=== PATIENT | male | born 1975 | race Caucasian/White ===

== ENCOUNTER 2016-07-19 22:01 | Emergency (ER) | payer SELFPAY ==
[~2016-07-19] VITALS: Ht 172.7 cm; Wt 75.0 kg
[~2016-07-19 22:01] MED LIST: CYAN100015 BUCCAL; D-10TAB; FOLI5CAP PO; MAG-500T; MAGN400T2 PO; MULTTAB67 PO; OMEP40CA2 PO; POTA-163 PO; POTA20TA5 PO; [UNRECOGNIZED DRUG - CODE]
[2016-07-19 22:19] VITALS: BP 117/75; PULSE 88; RESP 16; TEMP 98.6; O2SAT 96
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
== END 2016-07-20 01:55 | disposition home or self-care (01) ==
LOC: NEPA 22:01
DX: F10.220 Alcohol dependence with intoxication, uncomplicated (principal); J45.909 Unspecified asthma, uncomplicated; E78.00 Pure hypercholesterolemia, unspecified; I10 Essential (primary) hypertension; F17.210 Nicotine dependence, cigarettes, uncomplicated; Y90.9 Presence of alcohol in blood, level not specified
CPT/HCPCS: 99284

== ENCOUNTER 2016-08-05 02:21 | Emergency (ER) | payer OTHER ==
[2016-08-05] MEDS ORDERED: METF500T PO (02:26)
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
[2016-08-05 02:27] VITALS: BP 125/82; PULSE 77; RESP 16; TEMP 97.4; O2SAT 95
[2016-08-05] MEDS ORDERED: IBUPROFEN 800 MG TAB PO ONE (02:30)
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
== END 2016-08-05 03:57 | disposition home or self-care (01) ==
LOC: NEPE 02:21
DX: S20.219A Contusion of unspecified front wall of thorax, initial encounter (principal); V49.40XA Driver injured in collision with unspecified motor vehicles in traffic accident, initial encounter
CPT/HCPCS: 71010; 99284

== ENCOUNTER 2016-09-14 22:58 | Inpatient (IN) | payer SELFPAY ==
[~2016-09-14] VITALS: Ht 172.7 cm; Wt 86.6 kg
[~2016-09-14 22:58] MED LIST changes: +METF500T PO
[2016-09-14 22:59] VITALS: BP 135/73; PULSE 82; RESP 16; TEMP 98.7; O2SAT 89
[2016-09-14] MEDS ORDERED: SODIUM CHLOR 0.9% 1000 ML INJ 1,000 ML IV SCH (23:50)
[2016-09-14] MEDS ORDERED: GLIM4TAB PO (23:53)
[2016-09-14] MEDS ORDERED: PAXI40TA PO (23:53)
[2016-09-14] MEDS ORDERED: MIRT30TA PO (23:53)
[2016-09-14] MEDS ORDERED: CHLO10CA2 PO (23:53)
[2016-09-14] MEDS ORDERED: TRAZ100T4 PO (23:53)
[2016-09-14] MEDS ORDERED: GLIM2TAB PO (23:53)
--- NOTE | 2016-09-14 23:53 | PD ---
HPI Chief Complaint: Abdominal Pain Time Seen by Provider: 23:49 Travel History International Travel<30 days: No Contact w/Intl Traveler<30days: No History of Present Illness HPI The patient is 41 years old. He has a history of alcoholic pancreatitis. He reports relapsing 3 days prior and drinking vodka for one night. For the past day and a half or so has had severe constant epigastric abdominal pain which radiates to the right and left sides and around to the back. He's vomited twice in the last 24 hours. One episode was bloody. 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 Tylenol and ibuprofen were not helpful. He reports drinking water was somewhat helpful. Primary care provider is Dr. Wakefield. [facility], [facility] Past Medical History Asthma: Yes Heart Rhythm Problems: No Cancer: No High Cholesterol: Yes Chest Pain: Yes Congestive Heart Failure: No COPD: No Diabetes: Yes Diminished Hearing: No Endocrine: No Gastrointestinal Disorders: Yes (pancreatitis) GERD: Yes Genitourinary: No Hypertension: Yes Immune Disorder: No Implanted Vascular Access Dvce: No Musculoskeletal: Yes (RIGHT LEG/TOES BROKEN) Neurologic: No Psychiatric: No Reproductive: No Respiratory: Yes (ASTHMA ) Immunizations Current: Yes Pancreatitis: Yes Thyroid Disease: No Past Surgical History Oral Surgery: Yes (TONSILLECTOMY) Other Surgery: Yes Social History Alcohol Use: Yes (10 VODKA DRINKS AND BEER DAILY) Tobacco Use: Yes (1/2 PPD) Substance Use: Yes Allergies-Medications (Allergen,Severity, Reaction): Coded Allergies: No Known Allergies (Unverified , 09/14/16) Reported Meds & Prescriptions Reported Meds & Active Scripts Active Magnesium Oxide 400 Mg Tab 400 Mg PO BID 7 Days Potassium Chloride ER (Potassium Chloride) 20 Meq Tab 20 Meq PO BID 7 Days Reported Mirtazapine 30 Mg Tab 30 Mg PO HS Chlordiazepoxide (Chlordiazepoxide HCl) 10 Mg Cap 10 Mg PO QID PRN Paxil (Paroxetine HCl) 40 Mg Tab 40 Mg PO DAILY Trazodone (Trazodone HCl) 100 Mg Tab 100 Mg PO HS Glimepiride 4 Mg Tab 4 Mg PO HS Take with breakfast or first main meal Glimepiride 2 Mg Tab 2 Mg PO DAILY Take with breakfast or first main meal Metformin (Metformin HCl) 500 Mg Tab 500 Mg PO BIDPC With meals Potassium Chloride Microencaps 20 Meq Tab 20 Meq PO DAILY Omeprazole 40 Mg Cap 40 Mg PO DAILY Multiple Vitamin 1 Tab 1 Tab PO DAILY Mag-G (Magnesium Gluconate) 500 Mg Tab Folic Acid 5 Mg Cap 1 Mg PO DAILY B-12 (Cyanocobalamin) 1,000 Mcg Lozg 1,000 Mcg BUCCAL DAILY Coenzyme Q10 (Bulk) (Coenzyme Q10) 1 Powd D-1000 (Cholecalciferol) 1,000 Unit Tab Review of Systems Except as stated in HPI: all other systems reviewed are Neg General / Constitutional: No: Fever, Chills Gastrointestinal: Positive: Abdominal Pain Physical Exam Narrative GENERAL: 41-year-old male well-nourished well-developed SKIN: Warm and dry. HEAD: Atraumatic. Normocephalic. EYES: Pupils equal and round. No scleral icterus. No injection or drainage. ENT: No nasal bleeding or discharge. Mucous membranes pink and moist. NECK: Trachea midline. No JVD. CARDIOVASCULAR: Regular rate and rhythm. No murmur appreciated. RESPIRATORY: No accessory muscle use. Clear to auscultation. Breath sounds equal bilaterally. GASTROINTESTINAL: Soft. Minimal tenderness to palpation in the epigastrium. Negative Lindsey's sign. MUSCULOSKELETAL: No obvious deformities. No clubbing. No cyanosis. No edema. NEUROLOGICAL: Awake and alert. No obvious cranial nerve deficits. Motor grossly within normal limits. Normal speech. PSYCHIATRIC: Appropriate mood and affect; insight and judgment normal. Data Data Last Documented VS Vital Signs Date Time Temp Pulse Resp B/P Pulse Ox O2 Delivery O2 Flow Rate FiO2 09/15/16 01:14 73 16 105/68 97 Room Air 09/15/16 00:20 2 09/14/16 22:59 98.7 Vital signs reviewed Orders Complete Blood Count With Diff (09/14/16 23:50) Comprehensive Metabolic Panel (09/14/16 23:50) Lipase (09/14/16 23:50) Iv Access Insert/Monitor (09/14/16 23:50) Ecg Monitoring (09/14/16 23:50) Oximetry (09/14/16 23:50) Hydromorphone Pf Inj (Dilaudid Pf Inj) (09/15/16 00:00) Ondansetron Inj (Zofran Inj) (09/15/16 00:00) Sodium Chlor 0.9% 1000 Ml Inj (Ns 1000 M (09/14/16 23:50) Sodium Chloride 0.9% Flush (Ns Flush) (09/15/16 00:00) Potassium Chloride (Kcl) (09/15/16 02:15) Ns + Kcl + Magnesium Inj (09/15/16 02:30) Labs Laboratory Tests Test 09/15/16 00:09 White Blood Count 14.1 TH/MM3 Red Blood Count 4.44 MIL/MM3 Hemoglobin 13.4 GM/DL Hematocrit 40.3 % Mean Corpuscular Volume 90.8 FL Mean Corpuscular Hemoglobin 30.1 PG Mean Corpuscular Hemoglobin 33.2 % Concent Red Cell Distribution Width 14.2 % Platelet Count 276 TH/MM3 Mean Platelet Volume 9.1 FL Neutrophils (%) (Auto) 66.6 % Lymphocytes (%) (Auto) 20.0 % Monocytes (%) (Auto) 9.1 % Eosinophils (%) (Auto) 3.6 % Basophils (%) (Auto) 0.7 % Neutrophils # (Auto) 9.4 TH/MM3 Lymphocytes # (Auto) 2.8 TH/MM3 Monocytes # (Auto) 1.3 TH/MM3 Eosinophils # (Auto) 0.5 TH/MM3 Basophils # (Auto) 0.1 TH/MM3 CBC Comment DIFF FINAL Differential Comment Sodium Level 137 MEQ/L Potassium Level 2.3 MEQ/L Chloride Level 86 MEQ/L Carbon Dioxide Level 40.6 MEQ/L Anion Gap 10 MEQ/L Blood Urea Nitrogen 22 MG/DL Creatinine 0.81 MG/DL Estimat Glomerular Filtration 105 ML/MIN Rate Random Glucose 129 MG/DL Calcium Level 8.7 MG/DL Total Bilirubin 1.5 MG/DL Aspartate Amino Transf 101 U/L (AST/SGOT) Alanine Aminotransferase 143 U/L (ALT/SGPT) Alkaline Phosphatase 367 U/L Total Protein 7.6 GM/DL Albumin 3.6 GM/DL Lipase 2967 U/L MDM Medical Decision Making Medical Screen Exam Complete: Yes Emergency Medical Condition: Yes Medical Record Reviewed: Yes Differential Diagnosis Gastritis, pancreatitis, appendicitis, acute cholecystitis, ascending cholangitis, AAA, perforated viscous, mesenteric ischemia, hepatitis, cystitis, hydronephrosis/hydroureter/nephroureter calculus, mesenteric adenitis, biliary colic Narrative Course CBC & BMP Diagram 09/15/16 00:09 Total bilirubin 1.5 AST 101 ALT 143 Alkaline phosphatase 367 Lipase 2967 The abdomen is soft. The patient has no tachycardia or fever. The leukocytosis is considered most probably secondary to vomiting and/or pain and less likely an infectious process involving the pancreas or hepatobiliary system otherwise. We will admit the patient for pain control, IV fluids and antiemetics. Patient received 60 mEq of potassium by mouth. Case d/w Dr Escalante for [facility]. IV KCL added add'l 20meq. Diagnosis Primary Impression: Acute alcoholic pancreatitis Qualified Code: K85.20 - Alcohol-induced acute pancreatitis, unspecified complication status Admitting Information Admitting Physician Requests: Admit Fernando Tian MD Sep 14, 2016 23:53
[2016-09-15] VITALS (14 sets, daily range): BP systolic 87–115; BP diastolic 56–73; PULSE 58–79; RESP 14–22; TEMP 97.5–98.1; O2SAT 87–97
[2016-09-15] MEDS ORDERED: ONDANSETRON HCL 4 MG/2 ML VIAL IVP ONE
[2016-09-15] MEDS ORDERED: HYDROmorphone HCL PF 2 MG/ML VIAL IVS ONE
[2016-09-15 00:35] LABS: AUTOMATED NEUTROPHIL # 9.4 TH/MM3 (1.8-7.7); BASOPHIL # 0.1 TH/MM3 (0-0.2); BASOPHIL % 0.7 % (0.0-2.0); EOSINOPHIL # 0.5 TH/MM3 (0-0.4); EOSINOPHIL % 3.6 % (0.0-4.0); HEMATOCRIT 40.3 % (39.0-51.0); LYMPHOCYTE # 2.8 TH/MM3 (1.0-4.8); MEAN CELL VOLUME 90.8 FL (80.0-100.0); MEAN CORPUSCULAR HEMOGLOBIN 30.1 PG (27.0-34.0); MEAN CORPUSCULAR HGB CONC 33.2 % (32.0-36.0); MONO % 9.1 % (0.0-8.0); NEUT % 66.6 % (16.0-70.0); PLATELET COUNT 276 TH/MM3 (150-450); RED BLOOD COUNT 4.44 MIL/MM3 (4.50-5.90); RED CELL DISTRIBUTION WIDTH 14.2 % (11.6-17.2); WHITE BLOOD COUNT 14.1 TH/MM3 (4.0-11.0)
[2016-09-15 00:43] LABS: HEMO FLAGS DIFF FINAL
[2016-09-15 01:13] LABS: ALKALINE PHOSPHATASE 367 U/L (45-117); ALT (GPT) 143 U/L (12-78); ANION GAP 10 MEQ/L (5-15); AST (GOT) 101 U/L (15-37); BICARBONATE 40.6 MEQ/L (21.0-32.0); BLOOD UREA NITROGEN 22 MG/DL (7-18); CHLORIDE 86 MEQ/L (98-107); GLOMERULAR FILTRATION RATE 105 ML/MIN (>89); SODIUM (NA) 137 MEQ/L (136-145); TOTAL BILIRUBIN ADULT 1.5 MG/DL (0.2-1.0)
[2016-09-15 01:14] LABS: POTASSIUM 2.3 MEQ/L (3.5-5.1)
[2016-09-15] MEDS ORDERED: POTASSIUM CHLORIDE 20 MEQ CONTROLLED RELEASE TAB PO ONE ×2 (02:15→13:15)
[2016-09-15] MEDS ORDERED: POTASSIUM CHLORIDE INJ 20 MEQ, MAGNESIUM SULFATE INJ 2 GM in SODIUM CHLOR 0.9% 1000 ML ... IV ONE (02:30)
[2016-09-15] MEDS ORDERED: HYDROmorphone HCL PF 1 MG/ML VIAL IV PUSH ONE (03:00)
[2016-09-15] MEDS ORDERED: GLUCAGON 1 MG/ML VIAL OTHER PRN (03:15)
[2016-09-15] MEDS ORDERED: traZODone HCL 100 MG TAB PO ONE (03:15)
[2016-09-15] MEDS ORDERED: DEXTROSE 50% IN WATER 50 ML VIAL(D50) IV PUSH PRN (03:15)
[2016-09-15] MEDS ORDERED: MAGNESIUM SULFATE 1 GM PREMIX 100 ML IV ONE ×2 (04:00→18:00)
[2016-09-15] MEDS: PANTOPRAZOLE SODIUM 40 MG VIAL IV PUSH SCH (04:51)
[2016-09-15] MEDS: ONDANSETRON HCL 4 MG/2 ML VIAL IV PUSH PRN ×2 (06:11→13:25)
[2016-09-15] MEDS: MORPHINE SULFATE 4 MG/ML INJ IV PUSH PRN ×2 (06:12→13:26)
[2016-09-15] MEDS: INSULIN ASPART SUPPLEMENTAL SCALE SQ SCH ×4 (07:00→21:00)
[2016-09-15] MEDS: MULTIVITAMIN TAB PO SCH (08:23)
[2016-09-15] MEDS: SODIUM CHLORIDE 0.9% FLUSH 5 ML FLUSH IVF PRN ×2 (08:23→21:38)
[2016-09-15] MEDS: FOLIC ACID 1 MG TAB PO SCH (08:23)
[2016-09-15] MEDS: PARoxetine HCL 20 MG TAB PO SCH (08:39)
--- NOTE | 2016-09-15 09:30 | RADHPO ---
EXAM DATE/TIME: 09/15/2016 09:00 [facility] COMPARISON: No previous studies available for comparison. INDICATIONS : MRI clearance MEDICAL HISTORY : Metal removed from orbits SURGICAL HISTORY : None. ENCOUNTER: Initial ACUITY: 1 day PAIN SCORE: 0/10 LOCATION: Bilateral orbits FINDINGS: Multiple views of both orbits were performed. There is no evidence of fracture involving the bony st ructures surrounding the orbits. The maxillary sinuses appear to be well aerated. No radiopaque bod ies are seen in the soft tissues. No MRI incompatible foreign body is identified. CONCLUSION: No MRI incompatible foreign body is identified. Ezra Paredes MD FACR on September 15, 2016 at 9:28 Board Certified Radiologist. This report was verified electronically.
[2016-09-15] MEDS ORDERED: SODIUM CHLOR 0.9% 1000 ML INJ 1,000 ML IV ONE (10:45)
[2016-09-15 11:18] LABS: HEMATOCRIT 33.8 % (39.0-51.0); MEAN CORPUSCULAR HEMOGLOBIN 29.7 PG (27.0-34.0); MEAN CORPUSCULAR HGB CONC 32.6 % (32.0-36.0); PLATELET COUNT 228 TH/MM3 (150-450); RED BLOOD COUNT 3.71 MIL/MM3 (4.50-5.90); RED CELL DISTRIBUTION WIDTH 13.9 % (11.6-17.2); REVIEW FLAG FINAL
--- NOTE | 2016-09-15 11:19 | RADHPO ---
EXAM DATE/TIME: 09/15/2016 09:44 [facility] COMPARISON: CT ABDOMEN W CONTRAST, March 28, 2015, 15:52. INDICATIONS : Abdominal pain. MEDICAL HISTORY : Hypertension. Pancreatitis. Diabetes mellitus type 2. hypercholestrolemia SURGICAL HISTORY : Tonsillectomy. ENCOUNTER: Initial ACUITY: 1 day PAIN SCORE: 4/10 LOCATION: upper quadrant abdomen TECHNIQUE: Multiplanar, multisequence magnetic resonance imaging of the abdomen was performed. High-resolution 3D dataset was utilized to reconstruct maximum-intensity projection (MIP) images. FINDINGS: INTRAHEPATIC BILE DUCTS: There is some prominence of the central intrahepatic biliary ducts. EXTRAHEPATIC BILE DUCTS: The common bile duct is mildly distended measures 8 mm No stone or filling defect is identified. GALLBLADDER: Small gallstones are seen dependently within the gallbladder. The gallbladder is not distended. Gallb ladder wall is not thickened. LIVER: There is a 1.3 cm mass in the lateral aspect of the right lobe of the liver. This likely representing hemangioma. It was present on the prior CT examination. PANCREAS: The pancreatic duct at the pancreatic head appears prominent measuring 0.7 cm. It does have a somewha t beaded appearance. A pancreatic mass or significant fluid around the pancreas is not clearly seen. The pancreatic body and tail appear atrophied and are not clearly seen. OTHER: The remaining visualized structures demonstrate no acute abnormality on this non-contrast exam. There is some consolidation or atelectasis at the right lung base. CONCLUSION: 1. Mild dilatation of the central intrahepatic ducts and the extrahepatic biliary ducts without a foc al mass or filling defect. 2. Small gallstones. 3. Dilated pancreatic duct in the pancreatic head with atrophy of the right body and tail likely from prior inflammatory change. This appearance was present on the prior CT examination. 4. 1.3 cm mass in the right lobe of the liver likely representing a hemangioma. Fred Valiente MD on September 15, 2016 at 11:05 Board Certified Radiologist. This report was verified electronically.
[2016-09-15] MEDS: DEXT 5%-NACL 0.9% 1000 ML INJ 1,000 ML IV SCH ×2 (11:41→21:37)
[2016-09-15 11:48] LABS: BICARBONATE 37.9 MEQ/L (21.0-32.0); CALCIUM-PROTEIN CORRECTED 7.9 MG/DL (8.5-10.1); TOTAL BILIRUBIN ADULT 1.2 MG/DL (0.2-1.0)
[2016-09-15 11:50] LABS: POTASSIUM 2.5 MEQ/L (3.5-5.1)
[2016-09-15] MEDS: POTASSIUM CHLOR 20 MEQ PREMIX 100 ML IV SCH ×2 (13:19→16:30)
[2016-09-15] MEDS ORDERED: POTASSIUM CHLORIDE 8 MEQ CONTROLLED RELEASE TAB PO ONE ×2 (17:00→22:00)
[2016-09-15] MEDS: HYDROmorphone HCL PF 1 MG/ML VIAL IV PUSH PRN ×2 (17:52→21:38)
[2016-09-15] MEDS ORDERED: SODIUM CHLORIDE 0.9% IV ONE (18:00)
[2016-09-15] MEDS ORDERED: MAGNESIUM SULFATE IV ONE (18:00)
[2016-09-15] MEDS: traZODone HCL 100 MG TAB PO SCH (21:38)
[2016-09-15] MEDS: MIRTAZAPINE 15 MG TAB PO SCH (21:38)
[2016-09-16] VITALS (7 sets, daily range): BP systolic 104–130; BP diastolic 60–73; PULSE 71–93; RESP 18–22; TEMP 97.4–100.3; O2SAT 85–95
[2016-09-16] MEDS: PANTOPRAZOLE SODIUM 40 MG VIAL IV PUSH SCH (03:51)
[2016-09-16] MEDS: HYDROmorphone HCL PF 1 MG/ML VIAL IV PUSH PRN ×5 (03:51→20:47)
[2016-09-16] MEDS: DEXT 5%-NACL 0.9% 1000 ML INJ 1,000 ML IV SCH ×3 (04:51→14:15)
[2016-09-16] MEDS: INSULIN ASPART SUPPLEMENTAL SCALE SQ SCH ×4 (05:19→20:55)
[2016-09-16 08:08] LABS: MEAN CELL VOLUME 91.9 FL (80.0-100.0); MEAN CORPUSCULAR HEMOGLOBIN 30.5 PG (27.0-34.0); MEAN CORPUSCULAR HGB CONC 33.2 % (32.0-36.0); PLATELET COUNT 224 TH/MM3 (150-450); RED BLOOD COUNT 3.91 MIL/MM3 (4.50-5.90); RED CELL DISTRIBUTION WIDTH 14.7 % (11.6-17.2); REVIEW FLAG FINAL; WHITE BLOOD COUNT 8.6 TH/MM3 (4.0-11.0)
[2016-09-16 08:31] LABS: ALKALINE PHOSPHATASE 249 U/L (45-117); ALT (GPT) 76 U/L (12-78); ANION GAP 6 MEQ/L (5-15); AST (GOT) 42 U/L (15-37); BICARBONATE 34.6 MEQ/L (21.0-32.0); BLOOD UREA NITROGEN 6 MG/DL (7-18); CHLORIDE 98 MEQ/L (98-107); GLOMERULAR FILTRATION RATE 124 ML/MIN (>89); MAGNESIUM 1.9 MG/DL (1.5-2.5); POTASSIUM 3.1 MEQ/L (3.5-5.1); SODIUM (NA) 139 MEQ/L (136-145); TOTAL BILIRUBIN ADULT 0.7 MG/DL (0.2-1.0)
[2016-09-16] MEDS: MULTIVITAMIN TAB PO SCH (08:47)
[2016-09-16] MEDS: FOLIC ACID 1 MG TAB PO SCH (08:47)
[2016-09-16] MEDS: PARoxetine HCL 20 MG TAB PO SCH (08:47)
[2016-09-16] MEDS ORDERED: POTASSIUM CHLORIDE 25 MEQ EFFERVESCENT TAB PO ONE (11:00)
--- NOTE | 2016-09-16 12:15 | HHI.PR ---
Subjective Subjective Remarks sleepy epigastric pain no n/v wants to eat something no tremors no fever no cp no sob Review of Systems Constitutional Constitutional Remarks 12 point review of systems completed, negative except as noted above Vitals/Results Intake & Output 09/15/16 09/15/16 09/16/16 14:59 22:59 06:59 Intake Total 1332 ml 1312 ml Output Total 600 ml Balance -600 ml 1332 ml 1312 ml Intake Oral 280 ml 120 ml IV Total 1052 ml 1192 ml Output Urine Total 600 ml # Voids 1 2 3 # Bowel Movements 0 0 Vital Signs Vital Signs Date Time Temp Pulse Resp B/P Pulse Ox O2 Delivery O2 Flow Rate FiO2 09/16/16 08:50 79 09/16/16 08:00 97.4 71 18 108/61 93 09/16/16 04:00 98.7 86 22 127/73 89 09/16/16 00:11 97.9 89 22 111/60 85 09/15/16 20:16 77 09/15/16 20:11 98.1 79 22 115/73 87 09/15/16 16:00 98.0 68 18 93/56 93 09/15/16 14:47 76 18 105/62 93 09/15/16 13:24 65 14 112/71 95 Nasal Cannula 2 CBC/BMP: 09/16/16 0737 09/16/16 0737 Lab Results Laboratory Tests Test 09/16/16 07:37 White Blood Count 8.6 TH/MM3 Red Blood Count 3.91 MIL/MM3 Hemoglobin 12.0 GM/DL Hematocrit 36.0 % Mean Corpuscular Volume 91.9 FL Mean Corpuscular Hemoglobin 30.5 PG Mean Corpuscular Hemoglobin 33.2 % Concent Red Cell Distribution Width 14.7 % Platelet Count 224 TH/MM3 Mean Platelet Volume 8.9 FL Sodium Level 139 MEQ/L Potassium Level 3.1 MEQ/L Chloride Level 98 MEQ/L Carbon Dioxide Level 34.6 MEQ/L Anion Gap 6 MEQ/L Blood Urea Nitrogen 6 MG/DL Creatinine 0.70 MG/DL Estimat Glomerular Filtration 124 ML/MIN Rate Random Glucose 235 MG/DL Calcium Level 7.6 MG/DL Magnesium Level 1.9 MG/DL Total Bilirubin 0.7 MG/DL Aspartate Amino Transf 42 U/L (AST/SGOT) Alanine Aminotransferase 76 U/L (ALT/SGPT) Alkaline Phosphatase 249 U/L Total Protein 6.0 GM/DL Albumin 2.7 GM/DL Lipase 1081 U/L Physical Exam General General Appearance: Well Developed, Well Nourished, No Acute Distress, Comfortable, Sleeping Eyes Eye Exam: Pupils Equal, Pupils Reactive Ears & Nose Ears & Nose Exam: Nasal Mucosa [place] Throat Throat Exam: Oral Mucosa [place] & Moist Neck Neck Exam: Neck Supple, Trachea Midline Pulmonary Resp Exam: Clear Bilaterally, No Distress Cardiology CV Exam: Regular Gastrointestinal/Abdomen GI Exam: Soft, Non-Tender, Bowel Sounds Present, Non-Distended Musculoskeletal MS Exam: Joints Intact Integumentary Skin Exam: Warm, Dry Extremeties Extremities Exam: No Edema, Pedal Pulses Palpable Neurologic Neuro Exam: Oriented, Speech Clear, Moving All Extremities, No Focal Deficits VTE Prophylaxis VTE Prophylaxis Device: SCDs PUD Prophylasis PUD Prophylaxis: Protonix Assessment/Plan Problem List: (1) Acute alcoholic pancreatitis (2) Alcohol abuse (3) Hypokalemia (4) Hypertension (5) Hyperlipidemia Assessment/Plan continue with IVF, dec to 75/hr lipase 1081 trending down continue with pain management, Dilaudid PRN antiemetics PRN NPO status GI consulted, pending Replace K follow BMP daily Continue with Accu-Cheks before meals and at bedtime and insulin therapy as needed Alcohol abuse counseling Continue with Librium when necessary Continue multivitamin and folic acid SCDs for DVT prophylaxis Protonix for GI prophylaxis Repeat labs in the morning Improving, will wait for GI input D/W RN D/W Dr. Escalante D/W pt This patient was seen by myself and Dr. Escalante, this note is written on his behalf Problem Qualifiers (1) Acute alcoholic pancreatitis: Qualified Code: K85.20 - Alcohol-induced acute pancreatitis, unspecified complication status (2) Hypertension: Qualified Code: I10 - Essential hypertension (3) Hyperlipidemia: Qualified Code: E78.5 - Hyperlipidemia, unspecified hyperlipidemia type Carlee Bernstein Sep 16, 2016 12:15
[2016-09-16] MEDS ORDERED: POTASSIUM CHLORIDE 10 MEQ CONTROLLED RELEASE TAB PO ONE ×2 (17:45→18:15)
--- NOTE | 2016-09-16 17:57 | PD.CONS ---
HPI History of Present Illness This is a 41 year old male with a history of pancreatitis secondary to alcohol abuse who presented to the emergency room with nausea, vomiting, abdominal pain and was admitted for acute pancreatitis. The patient reports that he has had multiple episodes of pancreatitis. For a while, he was being hospitalized for this about every 3 months. He was always told that his pancreatitis was related to his alcohol use and he admits that every episode occurred after drinking alcohol. He reports that he's been in AA and was abstaining from alcohol up until this past Sunday when he binged and had 3 fifths of liquor. He then started having severe abdominal pain that he describes as a constant sharp pain in his epigastric area that radiates to his back with associated nausea and vomiting. He cannot really eat anything and states that he was only taking liquids. On , he reports that he did vomit a very small amount of bright red blood mixed with then clear emesis. This was more streaks and not a significant amount of blood. He also had severe GERD. He does not usually have heartburn or reflux symptoms, but states he does habit whenever he has an episode of pancreatitis. He denies any diarrhea, constipation, melena, hematochezia, fevers, as or chills. In the emergency room he was found to have an elevated lipase of 2967 with elevated LFTs with a total bilirubin of 1.5, AST 101, ALT 143, alkaline phosphatase 367. MRCP (09/15/16) revealed 1. Mild dilatation of the central intrahepatic ducts and the extrahepatic biliary ducts without a focal mass or filling defect. 2. Small gallstones. 3. Dilated pancreatic duct in the pancreatic head with atrophy of the right body and tail likely from prior inflammatory change. This appearance was present on the prior CT examination. 4. 1.3 cm mass in the right lobe of the liver likely representing a hemangioma. He is NPO and receiving IVF. His lipase is trending down, 1081 today, as are his LFTs. He reports that his pain is improving and that he is starving and would like to try something to eat. He is hoping to be discharged no later than Sunday morning because he goes into work at 12 noon on Sunday. He denies any hx of any gallbladder issues. ( Angelia AckermanP) [facility] Past Medical History Multiple episodes of acute pancreatitis secondary to alcohol abuse History of alcoholic hepatitis Hypertension Diabetes Hyperlipidemia Past Surgical History Tonsillectomy (Angelia Ackerman) Coded Allergies: No Known Allergies (Unverified , 09/14/16) Medications Allergies Coded Allergies Type Severity Reaction Last Updated Verified No Known Allergies 09/14/16 No Active Scripts Medications Dose Route/Sig Days Date Category Dose Instructions Mirtazapine 30 Mg Tab 30 Mg PO HS 09/14/16 Reported Chlordiazepoxide (Chlordiazepoxide HCl) 10 Mg Cap 10 Mg PO QID PRN 09/14/16 Reported Paxil (Paroxetine HCl) 40 Mg Tab 40 Mg PO DAILY 09/14/16 Reported Trazodone (Trazodone HCl) 100 Mg Tab 100 Mg PO HS 09/14/16 Reported Glimepiride 4 Mg Tab 4 Mg PO HS 09/14/16 Reported Take with breakfast or first main meal Glimepiride 2 Mg Tab 2 Mg PO DAILY 09/14/16 Reported Take with breakfast or first main meal Metformin (Metformin HCl) 500 Mg Tab 500 Mg PO BIDPC 08/05/16 Reported With meals Magnesium Oxide 400 Mg Tab 400 Mg PO BID 7 05/21/16 Rx Potassium Chloride ER (Potassium Chloride) 20 Meq Tab 20 Meq PO BID 7 05/21/16 Rx Potassium Chloride Microencaps 20 Meq Tab 20 Meq PO DAILY 05/21/16 Reported Omeprazole 40 Mg Cap 40 Mg PO DAILY 05/21/16 Reported Multiple Vitamin 1 Tab 1 Tab PO DAILY 05/21/16 Reported Mag-G (Magnesium Gluconate) 500 Mg Tab 05/21/16 Reported Folic Acid 5 Mg Cap 1 Mg PO DAILY 05/21/16 Reported B-12 (Cyanocobalamin) 1,000 Mcg Lozg 1,000 Mcg BUCCAL DAILY 05/21/16 Reported Coenzyme Q10 (Bulk) (Coenzyme Q10) 1 Powd 05/21/16 Reported D-1000 (Cholecalciferol) 1,000 Unit Tab 05/21/16 Reported Family History No family history of esophageal, gastric, colorectal, pancreatic cancer Father had diabetes Social History Smokes half a pack of cigarettes per day Long history of alcohol abuse. Quit for about 8 months but recently relapsed and went on a binge on Sunday at which time he had 3 5ths. (Angelia Ackerman) Review of Systems Constitutional: COMPLAINS OF: Fatigue, DENIES: Fever, Weight loss, Chills, Change in appetite Respiratory: DENIES: Cough Cardiovascular: DENIES: Chest pain Gastrointestinal: COMPLAINS OF: Abdominal pain, Nausea, Vomiting, Heartburn, DENIES: Black stools, Bloody stools, Constipation, Diarrhea Musculoskeletal: COMPLAINS OF: Back pain, DENIES: Joint pain Hematologic/lymphatic: DENIES: Bruising Neurologic: DENIES: Headache Psychiatric: DENIES: Confusion (AckermanAngelia Socorrohermes TEJEDA) GI Exam Vitals I&O Vital Signs Date Time Temp Pulse Resp B/P Pulse Ox O2 Delivery O2 Flow Rate FiO2 09/16/16 12:00 97.8 74 18 104/65 95 09/16/16 08:50 79 09/16/16 08:00 97.4 71 18 108/61 93 09/16/16 04:00 98.7 86 22 127/73 89 09/16/16 00:11 97.9 89 22 111/60 85 09/15/16 20:16 77 09/15/16 20:11 98.1 79 22 115/73 87 I/O 09/15/16 09/15/16 09/15/16 09/16/16 09/16/16 09/16/16 07:00 15:00 23:00 07:00 15:00 23:00 Intake Total 2340 ml 1332 ml 1312 ml 1048 ml Output Total 600 ml Balance 2340 ml -600 ml 1332 ml 1312 ml 1048 ml Intake Oral 240 ml 280 ml 120 ml IV Total 2100 ml 1052 ml 1192 ml 1048 ml Output Urine Total 600 ml # Voids 1 1 2 3 # Bowel Movements 0 0 Imaging Last Impressions Orbit X-Ray 09/15/16 0000 Signed Impressions: Service Date/Time: Thursday, September 15, 2016 09:00 - CONCLUSION: No MRI incompatible foreign body is identified. Ezra Paredes MD FACR Cholangiopancreatography MRI 09/15/16 0000 Signed Impressions: Service Date/Time: Thursday, September 15, 2016 09:44 - CONCLUSION: 1. Mild dilatation of the central intrahepatic ducts and the extrahepatic biliary ducts without a focal mass or filling defect. 2. Small gallstones. 3. Dilated pancreatic duct in the pancreatic head with atrophy of the right body and tail likely from prior inflammatory change. This appearance was present on the prior CT examination. 4. 1.3 cm mass in the right lobe of the liver likely representing a hemangioma. Fred Valiente MD Laboratory Test 09/16/16 07:37 White Blood Count 8.6 TH/MM3 Red Blood Count 3.91 MIL/MM3 Hemoglobin 12.0 GM/DL Hematocrit 36.0 % Mean Corpuscular Volume 91.9 FL Mean Corpuscular Hemoglobin 30.5 PG Mean Corpuscular Hemoglobin 33.2 % Concent Red Cell Distribution Width 14.7 % Platelet Count 224 TH/MM3 Mean Platelet Volume 8.9 FL Sodium Level 139 MEQ/L Potassium Level 3.1 MEQ/L Chloride Level 98 MEQ/L Carbon Dioxide Level 34.6 MEQ/L Anion Gap 6 MEQ/L Blood Urea Nitrogen 6 MG/DL Creatinine 0.70 MG/DL Estimat Glomerular Filtration 124 ML/MIN Rate Random Glucose 235 MG/DL Calcium Level 7.6 MG/DL Magnesium Level 1.9 MG/DL Total Bilirubin 0.7 MG/DL Aspartate Amino Transf 42 U/L (AST/SGOT) Alanine Aminotransferase 76 U/L (ALT/SGPT) Alkaline Phosphatase 249 U/L Total Protein 6.0 GM/DL Albumin 2.7 GM/DL Lipase 1081 U/L Physical Examination HEENT: Normocephalic; atraumatic; no jaundice. CHEST: CTA CARDIAC: RRR ABDOMEN: Soft, nondistended, epigastric tenderness; no hepatosplenomegaly; bowel sounds are present in all four quadrants. EXTREMITIES: No clubbing, cyanosis, or edema. SKIN: Normal; no rash; no jaundice. BODY MAKER MACHINE SETTER: No focal deficits; alert and oriented times three. (Angelia Ackerman [facility]) Assessment and Plan Plan ASSESSMENT: - Acute pancreatitis, likely related to ETOH. Pt has had multiple episodes of pancreatitis, all related to ETOH in the past. He reports that he has been abstaining and is in AA, but had a relapse and went on a binge this past Sunday and that his symptoms began on . On admission, had lipase of 2967 with elevated LFTs with a total bilirubin of 1.5, AST 101, ALT 143, alkaline phosphatase 367. MRCP (09/15/16) revealed 1. Mild dilatation of the central intrahepatic ducts and the extrahepatic biliary ducts without a focal mass or filling defect. 2. Small gallstones. 3. Dilated pancreatic duct in the pancreatic head with atrophy of the right body and tail likely from prior inflammatory change. This appearance was present on the prior CT examination. 4. 1.3 cm mass in the right lobe of the liver likely representing a hemangioma. NPO, IVF. His lipase is trending down, 1081 today, LFTs improving with T. Bili 0.7, AST 42, ALT 76, ALk Phosph 249. Pain is improving. Wanting to eat. D/W patient importance of complete ETOH cessation. Most likely this is related to ETOH abuse, but cannot completely rule out the possibility of a passed stone with cholelithiasis, improving lfts, and improving pain. However, his symptoms did start right after drinking a large amount of ETOH. He had not had any in 8 months and did not have any issues with pancreatitis when he was not drinking. - Hematemesis x 1 on . Pt reports that he had been persistently vomiting and had one episode of having a very small amount of bright red blood mixed within clear emesis. He has not had any further episodes and his HH has been stable. Will add PPI - Hypokalemia, replacement per primary. - Anemia, mild. 12.0/36.0. - HTN, Hyperlipidemia, DM per primary PLAN: - Clear liquids - Cont. IVF - Add Protonix 40mg IV daily - CBC, CMP, Lipase in am - Needs complete ETOH cessation, d/w patient, verbalizes understanding - Supportive care - Further recommendations to follow based on results of above - Pt seen and examined by Dr. Leslie and myself and this note is written on his behalf (Angelia Ackerman) Physician Comments Patient seen and examined on 09/16/16 Agree with above Continue with current supportive care Monitor labs Stop alcohol (Hussein Leslie MD) Angelia Ackerman Sep 16, 2016 17:57 Hussein Leslie MD Sep 17, 2016 12:09
[2016-09-16] MEDS ORDERED: PANTOPRAZOLE SODIUM 40 MG VIAL IV PUSH SCH (18:00)
[2016-09-16] MEDS: MIRTAZAPINE 15 MG TAB PO SCH (20:45)
[2016-09-16] MEDS: traZODone HCL 100 MG TAB PO SCH (20:56)
[2016-09-17] VITALS (8 sets, daily range): BP systolic 105–128; BP diastolic 59–99; PULSE 71–92; RESP 18; TEMP 97.6–101.2; O2SAT 91–98
[2016-09-17] MEDS: HYDROmorphone HCL PF 1 MG/ML VIAL IV PUSH PRN ×5 (00:45→20:15)
[2016-09-17] MEDS: DEXT 5%-NACL 0.9% 1000 ML INJ 1,000 ML IV SCH (03:26)
[2016-09-17] MEDS: PANTOPRAZOLE SODIUM 40 MG VIAL IV PUSH SCH (03:50)
[2016-09-17] MEDS: INSULIN ASPART SUPPLEMENTAL SCALE SQ SCH ×4 (06:13→20:16)
[2016-09-17 07:41] LABS: HEMATOCRIT 37.3 % (39.0-51.0); MEAN CELL VOLUME 90.9 FL (80.0-100.0); MEAN CORPUSCULAR HEMOGLOBIN 30.5 PG (27.0-34.0); MEAN CORPUSCULAR HGB CONC 33.5 % (32.0-36.0); PLATELET COUNT 249 TH/MM3 (150-450); RED CELL DISTRIBUTION WIDTH 14.4 % (11.6-17.2); REVIEW FLAG FINAL; WHITE BLOOD COUNT 8.7 TH/MM3 (4.0-11.0)
[2016-09-17 08:28] LABS: ALKALINE PHOSPHATASE 237 U/L (45-117); ALT (GPT) 58 U/L (12-78); ANION GAP 10 MEQ/L (5-15); AST (GOT) 27 U/L (15-37); BLOOD UREA NITROGEN 2 MG/DL (7-18); CHLORIDE 96 MEQ/L (98-107); GLOMERULAR FILTRATION RATE 135 ML/MIN (>89); MAGNESIUM 1.4 MG/DL (1.5-2.5); POTASSIUM 3.1 MEQ/L (3.5-5.1); SODIUM (NA) 138 MEQ/L (136-145); TOTAL BILIRUBIN ADULT 0.7 MG/DL (0.2-1.0)
[2016-09-17] MEDS: FOLIC ACID 1 MG TAB PO SCH (09:18)
[2016-09-17] MEDS: MULTIVITAMIN TAB PO SCH (09:18)
[2016-09-17] MEDS: PARoxetine HCL 20 MG TAB PO SCH (09:18)
[2016-09-17] MEDS ORDERED: POTASSIUM CHLORIDE 25 MEQ EFFERVESCENT TAB PO ONE (10:15)
--- NOTE | 2016-09-17 10:22 | HHI.PR ---
Subjective Subjective Remarks sleepy mild epigastric pain no n/v Tolerating clear liquid diet well Per nursing, was a little anxious this morning no fever no cp no sob Review of Systems Constitutional Constitutional Remarks 12 point review of systems completed, negative except as noted above Vitals/Results Intake & Output 09/16/16 09/16/16 09/17/16 15:00 23:00 07:00 Intake Total 1048 ml 990 ml 2255 ml Balance 1048 ml 990 ml 2255 ml Intake Oral 990 ml 240 ml IV Total 1048 ml 2015 ml # Voids 2 1 1 # Bowel Movements 0 1 0 Vital Signs Vital Signs Date Time Temp Pulse Resp B/P Pulse Ox O2 Delivery O2 Flow Rate FiO2 09/17/16 08:00 99.9 91 18 124/66 91 09/17/16 04:00 99.4 92 18 127/99 91 09/17/16 02:23 92 09/17/16 01:18 16 09/17/16 00:00 98.8 81 18 112/59 92 09/16/16 20:46 100.3 93 18 130/71 92 09/16/16 16:00 98.2 79 18 130/70 93 09/16/16 12:00 97.8 74 18 104/65 95 CBC/BMP: 09/17/16 0644 09/17/16 0644 Lab Results Laboratory Tests Test 09/17/16 06:44 White Blood Count 8.7 TH/MM3 Red Blood Count 4.10 MIL/MM3 Hemoglobin 12.5 GM/DL Hematocrit 37.3 % Mean Corpuscular Volume 90.9 FL Mean Corpuscular Hemoglobin 30.5 PG Mean Corpuscular Hemoglobin 33.5 % Concent Red Cell Distribution Width 14.4 % Platelet Count 249 TH/MM3 Mean Platelet Volume 9.1 FL Sodium Level 138 MEQ/L Potassium Level 3.1 MEQ/L Chloride Level 96 MEQ/L Carbon Dioxide Level 32.0 MEQ/L Anion Gap 10 MEQ/L Blood Urea Nitrogen 2 MG/DL Creatinine 0.65 MG/DL Estimat Glomerular Filtration 135 ML/MIN Rate Random Glucose 225 MG/DL Calcium Level 8.5 MG/DL Magnesium Level 1.4 MG/DL Total Bilirubin 0.7 MG/DL Aspartate Amino Transf 27 U/L (AST/SGOT) Alanine Aminotransferase 58 U/L (ALT/SGPT) Alkaline Phosphatase 237 U/L Total Protein 6.6 GM/DL Albumin 2.7 GM/DL Lipase 746 U/L Physical Exam General General Appearance: Well Developed, Well Nourished, No Acute Distress, Comfortable, Sleeping Eyes Eye Exam: Pupils Equal, Pupils Reactive Ears & Nose Ears & Nose Exam: Nasal Mucosa [place] Throat Throat Exam: Oral Mucosa [place] & Moist Neck Neck Exam: Neck Supple, Trachea Midline Pulmonary Resp Exam: Clear Bilaterally, No Distress Cardiology CV Exam: Regular Gastrointestinal/Abdomen GI Exam: Soft, Non-Tender, Bowel Sounds Present, Non-Distended Musculoskeletal MS Exam: Joints Intact Integumentary Skin Exam: Warm, Dry Extremeties Extremities Exam: No Edema, Pedal Pulses Palpable Neurologic Neuro Exam: Oriented, Speech Clear, Moving All Extremities, No Focal Deficits VTE Prophylaxis VTE Prophylaxis Device: SCDs PUD Prophylasis PUD Prophylaxis: Protonix Assessment/Plan Problem List: (1) Acute alcoholic pancreatitis (2) Alcohol abuse (3) Hypokalemia (4) Hypertension (5) Hyperlipidemia Assessment/Plan change to NS at 42/h4 lipase trending down 746 continue with pain management, wean off Dilaudid antiemetics PRN Clear liquid diet appreciate GI input, continue with above tx Needs to stop drinking Replace K and Mg follow BMP daily Continue with Accu-Cheks before meals and at bedtime and insulin therapy as needed Alcohol abuse counseling Continue with Librium when necessary Continue multivitamin and folic acid SCDs for DVT prophylaxis Protonix for GI prophylaxis labs in am poss. luc vaughan in am D/W RN D/W Dr. Escalante D/W pt This patient was seen by myself and Dr. Escalante, this note is written on his behalf Problem Qualifiers (1) Acute alcoholic pancreatitis: Qualified Code: K85.20 - Alcohol-induced acute pancreatitis, unspecified complication status (2) Hypertension: Qualified Code: I10 - Essential hypertension (3) Hyperlipidemia: Qualified Code: E78.5 - Hyperlipidemia, unspecified hyperlipidemia type Carlee Bernstein Sep 17, 2016 10:22
[2016-09-17] MEDS: MAGNESIUM SULFATE 1 GM PREMIX 100 ML IV SCH ×2 (10:44→11:44)
[2016-09-17] MEDS: SODIUM CHLOR 0.9% 1000 ML INJ 1,000 ML IV SCH (10:45)
--- NOTE | 2016-09-17 12:59 | HHI.GIFU ---
Subjective Remarks Less abdominal pain today Tolerating clear liquids No nausea/vomiting. Tmax 99.9 today at 0800. . (Jessica Madrid) Objective Vitals I&O Vital Signs Date Time Temp Pulse Resp B/P Pulse Ox O2 Delivery O2 Flow Rate FiO2 09/17/16 12:00 97.9 78 18 106/69 92 09/17/16 10:30 86 09/17/16 08:00 99.9 91 18 124/66 91 09/17/16 04:00 99.4 92 18 127/99 91 09/17/16 02:23 92 09/17/16 01:18 16 09/17/16 00:00 98.8 81 18 112/59 92 09/16/16 20:46 100.3 93 18 130/71 92 09/16/16 16:00 98.2 79 18 130/70 93 I/O 09/16/16 09/16/16 09/16/16 09/17/16 09/17/16 09/17/16 07:00 15:00 23:00 07:00 15:00 23:00 Intake Total 1312 ml 1048 ml 990 ml 2255 ml Balance 1312 ml 1048 ml 990 ml 2255 ml Intake Oral 120 ml 990 ml 240 ml IV Total 1192 ml 1048 ml 2015 ml # Voids 3 2 1 1 # Bowel Movements 0 0 1 0 Laboratory Laboratory Tests Test 09/17/16 06:44 White Blood Count 8.7 Red Blood Count 4.10 Hemoglobin 12.5 Hematocrit 37.3 Mean Corpuscular Volume 90.9 Mean Corpuscular Hemoglobin 30.5 Mean Corpuscular Hemoglobin 33.5 Concent Red Cell Distribution Width 14.4 Platelet Count 249 Mean Platelet Volume 9.1 Sodium Level 138 Potassium Level 3.1 Chloride Level 96 Carbon Dioxide Level 32.0 Anion Gap 10 Blood Urea Nitrogen 2 Creatinine 0.65 Estimat Glomerular Filtration 135 Rate Random Glucose 225 Calcium Level 8.5 Magnesium Level 1.4 Total Bilirubin 0.7 Aspartate Amino Transf 27 (AST/SGOT) Alanine Aminotransferase 58 (ALT/SGPT) Alkaline Phosphatase 237 Total Protein 6.6 Albumin 2.7 Lipase 746 Imaging Last Impressions Orbit X-Ray 09/15/16 0000 Signed Impressions: Service Date/Time: Thursday, September 15, 2016 09:00 - CONCLUSION: No MRI incompatible foreign body is identified. Ezra Paredes MD FACR Cholangiopancreatography MRI 09/15/16 0000 Signed Impressions: Service Date/Time: Thursday, September 15, 2016 09:44 - CONCLUSION: 1. Mild dilatation of the central intrahepatic ducts and the extrahepatic biliary ducts without a focal mass or filling defect. 2. Small gallstones. 3. Dilated pancreatic duct in the pancreatic head with atrophy of the right body and tail likely from prior inflammatory change. This appearance was present on the prior CT examination. 4. 1.3 cm mass in the right lobe of the liver likely representing a hemangioma. Fred Valiente MD Physical Exam HEENT: Pupils round and reactive to light; normocephalic; atraumatic; no jaundice. Throat is clear. NECK: Neck is supple, no JVD, no lymphadenopathy. CHEST: CTA CARDIAC: Regular ABDOMEN: +BS, soft, nondistended, nontender EXTREMITIES: No clubbing, cyanosis, or edema. SKIN: Normal; no rash; no jaundice. PURCHASING INTERN: No focal deficits; alert and oriented times three. (Jessica Madrid) Assessment and Plan Plan ASSESSMENT: - Acute pancreatitis, likely related to ETOH. Pt has had multiple episodes of pancreatitis, all related to ETOH in the past. He reports that he has been abstaining and is in AA, but had a relapse and went on a binge this past Sunday and that his symptoms began on . On admission, had lipase of 2967 with elevated LFTs with a total bilirubin of 1.5, AST 101, ALT 143, alkaline phosphatase 367. MRCP (09/15/16) ---> 1. Mild dilatation of the central intrahepatic ducts and the extrahepatic biliary ducts without a focal mass or filling defect. 2. Small gallstones. 3. Dilated pancreatic duct in the pancreatic head with atrophy of the right body and tail likely from prior inflammatory change. This appearance was present on the prior CT examination. 4. 1.3 cm mass in the right lobe of the liver likely representing a hemangioma. His lipase is trending down, 746 today, LFTs improving with T. Bili 0.7, AST 27, ALT 58, ALk Phosph 237. Pain is improving. D/W patient importance of complete ETOH cessation. Most likely this is related to ETOH abuse, but cannot completely rule out the possibility of a passed stone with cholelithiasis, improving lfts, and improving pain. However, his symptoms did start right after drinking a large amount of ETOH. He had not had any in 8 months and did not have any issues with pancreatitis when he was not drinking. - Hematemesis x 1 on . Pt reports that he had been persistently vomiting and had one episode of having a very small amount of bright red blood mixed within clear emesis. He has not had any further episodes and his HH has been stable. PPI - Hypokalemia, replacement per primary. - Anemia, mild. 12.5/37.3 - HTN, Hyperlipidemia, DM per primary PLAN: - Clear liquids, if pt improves clinically and Lipase trending down can advance to full liquids - Cont. IVF - Cont. Protonix 40mg IV daily - CBC, CMP, Lipase in am - Needs complete ETOH cessation, d/w patient, verbalizes understanding - Supportive care - Further recommendations as the case develops - Pt seen and examined by Dr. Leslie and myself and this note is written on his behalf (Jessica Madrid) Physician Comments Patient seen and examined Agree with above Continue with current supportive care Monitor labs (Hussein Leslie MD) Jessica Madrid Sep 17, 2016 12:59 Hussein Leslie MD Sep 17, 2016 16:18
[2016-09-17] MEDS ORDERED: ACETAMINOPHEN/HYDROcodone 325 MG/5 MG TAB PO PRN (13:15)
[2016-09-17] MEDS: ACETAMINOPHEN/HYDROcodone 325 MG/5 MG TAB PO PRN ×2 (13:26→17:28)
[2016-09-17] MEDS ORDERED: POTASSIUM CHLORIDE 10 MEQ CONTROLLED RELEASE TAB PO ONE (15:00)
[2016-09-17] MEDS: traZODone HCL 100 MG TAB PO SCH (20:15)
[2016-09-17] MEDS: MIRTAZAPINE 15 MG TAB PO SCH (20:15)
[2016-09-18] VITALS: BP 100/58; PULSE 62; RESP 18; TEMP 97.9; O2SAT 95
[2016-09-18 00:29] VITALS: PULSE 75
[2016-09-18 04:00] VITALS: BP 111/64; PULSE 69; RESP 18; TEMP 97.7; O2SAT 92
[2016-09-18] MEDS: ACETAMINOPHEN/HYDROcodone 325 MG/5 MG TAB PO PRN ×2 (04:42→10:00)
[2016-09-18] MEDS: PANTOPRAZOLE SODIUM 40 MG VIAL IV PUSH SCH ×2 (05:29→08:03)
[2016-09-18] MEDS: INSULIN ASPART SUPPLEMENTAL SCALE SQ SCH ×2 (06:13→11:17)
[2016-09-18 06:51] LABS: HEMATOCRIT 37.2 % (39.0-51.0); MEAN CELL VOLUME 92.2 FL (80.0-100.0); MEAN CORPUSCULAR HEMOGLOBIN 30.7 PG (27.0-34.0); MEAN CORPUSCULAR HGB CONC 33.3 % (32.0-36.0); PLATELET COUNT 305 TH/MM3 (150-450); RED BLOOD COUNT 4.04 MIL/MM3 (4.50-5.90); RED CELL DISTRIBUTION WIDTH 14.3 % (11.6-17.2); REVIEW FLAG FINAL; WHITE BLOOD COUNT 7.3 TH/MM3 (4.0-11.0)
[2016-09-18 06:56] LABS: BICARBONATE 32.6 MEQ/L (21.0-32.0); POTASSIUM 3.4 MEQ/L (3.5-5.1)
[2016-09-18] MEDS: HYDROmorphone HCL PF 1 MG/ML VIAL IV PUSH PRN (07:13)
--- NOTE | 2016-09-18 07:41 | HHI.DCPOC ---
Discharge Care Plan Diagnosis: (1) Acute alcoholic pancreatitis Your Health Problems Are: Appetite Changes Goals to Promote Your Health * To prevent worsening of your condition and complications * To maintain your health at the optimal level Directions to Meet Your Goals Take your medications as prescribed Follow your dietary instruction Follow activity as directed Keep your appointments as scheduled Take your immunizations and boosters as scheduled If your symptoms worsen call your PCP, if no PCP go to Urgent Care Center or Emergency Room Smoking is Dangerous to Your Health. Avoid second hand smoke Call the 24-hour hour crisis hotline for domestic abuse at Carlee Bernstein Sep 18, 2016 07:41
[2016-09-18 08:00] VITALS: BP 99/60; PULSE 66; RESP 20; TEMP 97.4; O2SAT 91
[2016-09-18] MEDS ORDERED: POTASSIUM CHLORIDE 25 MEQ EFFERVESCENT TAB PO ONE (08:00)
[2016-09-18] MEDS: FOLIC ACID 1 MG TAB PO SCH (08:03)
[2016-09-18] MEDS: PARoxetine HCL 20 MG TAB PO SCH (08:03)
[2016-09-18] MEDS: MULTIVITAMIN TAB PO SCH (08:03)
--- NOTE | 2016-09-18 09:10 | HHI.PR ---
Subjective Subjective Remarks pt. now more awake, oriented x 3 feels regrets over relapse, states he goes to AA and has good support system some epigastric tenderness no n/v wants to eat had a fever 101.2 no cough no sputum no cp no sob anxious to go home, has a job and is concerned Review of Systems Constitutional Constitutional Remarks 12 point review of systems completed, negative except as noted above Vitals/Results Intake & Output 09/17/16 09/17/16 09/18/16 15:00 23:00 07:00 Intake Total 1320 ml 480 ml 120 ml Balance 1320 ml 480 ml 120 ml Intake Oral 1320 ml 480 ml 120 ml # Voids 2 3 1 # Bowel Movements 0 0 0 Vital Signs Vital Signs Date Time Temp Pulse Resp B/P Pulse Ox O2 Delivery O2 Flow Rate FiO2 09/18/16 04:00 97.7 69 18 111/64 92 09/18/16 00:29 75 09/18/16 00:00 97.9 62 18 100/58 95 09/17/16 21:42 18 09/17/16 20:00 97.6 71 18 105/64 98 09/17/16 16:00 101.2 90 18 128/78 92 09/17/16 12:00 97.9 78 18 106/69 92 09/17/16 10:30 86 CBC/BMP: 09/18/16 0536 09/18/16 0536 Lab Results Laboratory Tests Test 09/18/16 05:36 White Blood Count 7.3 TH/MM3 Red Blood Count 4.04 MIL/MM3 Hemoglobin 12.4 GM/DL Hematocrit 37.2 % Mean Corpuscular Volume 92.2 FL Mean Corpuscular Hemoglobin 30.7 PG Mean Corpuscular Hemoglobin 33.3 % Concent Red Cell Distribution Width 14.3 % Platelet Count 305 TH/MM3 Mean Platelet Volume 8.7 FL Sodium Level 144 MEQ/L Potassium Level 3.4 MEQ/L Chloride Level 101 MEQ/L Carbon Dioxide Level 32.6 MEQ/L Anion Gap 10 MEQ/L Blood Urea Nitrogen 4 MG/DL Creatinine 0.61 MG/DL Estimat Glomerular Filtration 145 ML/MIN Rate Random Glucose 183 MG/DL Calcium Level 8.7 MG/DL Physical Exam General General Appearance: Well Developed, Well Nourished, No Acute Distress, Comfortable Eyes Eye Exam: Pupils Equal, Pupils Reactive Ears & Nose Ears & Nose Exam: Nasal Mucosa [place] Throat Throat Exam: Oral Mucosa [place] & Moist Neck Neck Exam: Neck Supple, Trachea Midline Pulmonary Resp Exam: Clear Bilaterally, No Distress Cardiology CV Exam: Regular Gastrointestinal/Abdomen GI Exam: Soft, Non-Tender, Bowel Sounds Present, Non-Distended Musculoskeletal MS Exam: Joints Intact Integumentary Skin Exam: Warm, Dry Extremeties Extremities Exam: No Edema, Pedal Pulses Palpable Neurologic Neuro Exam: Alert, Awake, Oriented, Speech Clear, Moving All Extremities, No Focal Deficits Psychiatric Psych Exam: Appropriate Responses VTE Prophylaxis VTE Prophylaxis Device: SCDs PUD Prophylasis PUD Prophylaxis: Protonix Assessment/Plan Problem List: (1) Acute alcoholic pancreatitis (2) Alcohol abuse (3) Hypokalemia (4) Hypertension (5) Hyperlipidemia Assessment/Plan continue with NS at 42/hr lipase trending down 746 continue with pain management, wean off Dilaudid -now PO narcotics antiemetics PRN adv to full liquid appreciate GI input, continue with above tx Needs to stop drinking Replace K Continue with Accu-Cheks before meals and at bedtime and insulin therapy as needed Alcohol abuse counseling-agrees to continue with AA Continue with Librium when necessary Continue multivitamin and folic acid Had fever last night ? will check CXR SCDs for DVT prophylaxis Protonix for GI prophylaxis clinically improved, tolerating diet plan to dc this afternoon f/u PCP next week if he develops fever, cough, malaise, needs to see PCP before diet-as tolerated avoid alcohol completely activity-as tolerated can go back to work Sun or D/W RN D/W Dr. Escalante D/W pt This patient was seen by myself and Dr. Escalante, this note is written on his behalf Problem Qualifiers (1) Acute alcoholic pancreatitis: Qualified Code: K85.20 - Alcohol-induced acute pancreatitis, unspecified complication status (2) Hypertension: Qualified Code: I10 - Essential hypertension (3) Hyperlipidemia: Qualified Code: E78.5 - Hyperlipidemia, unspecified hyperlipidemia type Carlee Bernstein Sep 18, 2016 09:10
--- NOTE | 2016-09-18 09:12 | HHI.DS ---
Discharge Summary Admission Date Sep 15, 2016 at 02:25 Discharge Date: Sep 18, 2016 Admitting Diagnosis Alcoholic Pancreatitis, Hypokalemia, Vomiting (1) Acute alcoholic pancreatitis (2) Hypertension (3) Hyperlipidemia (4) Hypokalemia (5) Diabetes 1.5, managed as type 2 (6) Alcohol abuse CBC/BMP: 09/18/16 0536 09/18/16 0536 Significant Findings Laboratory Tests Test 09/15/16 09/16/16 09/17/16 09/18/16 11:00 07:37 06:44 05:36 Red Blood Count 3.71 MIL/MM3 3.91 MIL/MM3 4.10 MIL/MM3 4.04 MIL/MM3 (4.50-5.90) (4.50-5.90) (4.50-5.90) (4.50-5.90) Hemoglobin 11.0 GM/DL 12.0 GM/DL 12.5 GM/DL 12.4 GM/DL (13.0-17.0) (13.0-17.0) (13.0-17.0) (13.0-17.0) Hematocrit 33.8 % 36.0 % 37.3 % 37.2 % (39.0-51.0) (39.0-51.0) (39.0-51.0) (39.0-51.0) Potassium Level 2.5 MEQ/L 3.1 MEQ/L 3.1 MEQ/L 3.4 MEQ/L (3.5-5.1) (3.5-5.1) (3.5-5.1) (3.5-5.1) Chloride Level 97 MEQ/L 96 MEQ/L (98-107) (98-107) Carbon Dioxide Level 37.9 MEQ/L 34.6 MEQ/L 32.6 MEQ/L (21.0-32.0) (21.0-32.0) (21.0-32.0) Random Glucose 117 MG/DL 235 MG/DL 225 MG/DL 183 MG/DL (74-106) (74-106) (74-106) (74-106) Calcium Level 7.4 MG/DL 7.6 MG/DL (8.5-10.1) (8.5-10.1) Protein Corrected Calcium 7.9 MG/DL (8.5-10.1) Total Bilirubin 1.2 MG/DL (0.2-1.0) Aspartate Amino Transf 65 U/L (15-37) 42 U/L (15-37) (AST/SGOT) Alanine Aminotransferase 104 U/L (12-78) (ALT/SGPT) Alkaline Phosphatase 280 U/L 249 U/L 237 U/L (45-117) (45-117) (45-117) Total Protein 6.1 GM/DL 6.0 GM/DL (6.4-8.2) (6.4-8.2) Albumin 2.8 GM/DL 2.7 GM/DL 2.7 GM/DL (3.4-5.0) (3.4-5.0) (3.4-5.0) Blood Urea Nitrogen 6 MG/DL (7-18) 2 MG/DL (7-18) 4 MG/DL (7-18) Lipase 1081 U/L 746 U/L (73-393) (73-393) Magnesium Level 1.4 MG/DL (1.5-2.5) Hospital Course This is an unfortunate 40-year-old male with history of alcoholism, recurrent pancreatitis who is a chronic smoker. He is a chronic alcohol abuser. However, he claimed that he stopped drinking about a year ago and was sober for one whole year. He recently got a new job and he got excited and did start drinking. He claimed that he only drank one-time multiple shots of vodka. Soon afterwards, he developed abdominal pain. The pain was severe, constant, radiated to his back with significant nauseousness. He vomited sometimes, denies hematemesis. Denies fever or chills. Denies diarrhea. He went to ER where he was noted to be quite tender. Lab showed evidence of elevated liver and pancreatic enzymes. He was diagnosed with pancreatitis. Recommendation was given by the ER physician for him to be admitted to the hospital. The patient was in [place] emergency room. However, they did not have room, thus, he was transferred to [facility]. LABORATORY DATA Sodium 137, potassium 2.3, chloride 86, bicarb 14, BUN of 10, creatinine 0.82, glucose 129. ALT 367, AST 101, ALT 143, total bili 1.5. Total protein 7.6, albumin 3.6. His lipase 2096 Repeat potassium today is 2.5. White count 14.1, hemoglobin 13.4, hematocrit his 40.3. Platelet count 276. Patient was admitted with: 1. Acute abdominal pain with elevated lipase after drinking alcohol consist pancreatitis, recurrent. 2. Elevated LFTs in cholestatic pattern. Rule out biliary obstruction, intrahepatic or extrahepatic. Rule out choledocholithiasis 3. Hypokalemia 4. Leukocytosis 5. Diabetes 6. Depression/bipolar disorder 7. Chronic smoker. 8. Alcohol user. During the course of the hospitalization, the following took place: The patient admitted to hospital. Put him on IV fluid and hydrated him aggressively. Replace potassium IV Kept n.p.o. Given IV analgesics. Pepcid for GI protection. Used Librium as needed for anxiety. He was counseled against alcohol use, advised him to completely abstain from it. Accu-Chek q.i.d. with sliding scale coverage. GI consultation obtained. Followed LFTs, CBC, electrolyte. Put on SCDs for DVT prophylaxis & Protonix for GI prophylaxis Lipase was monitored daily, started trending down. Blood sugars remained elevated, as he was changed from normal saline at 42/hr He was weaned off IV Dilaudid and put on by mouth narcotics antiemetics PRN were ordered Gastroenterology evaluated, recommended to continue with above treatment Diet was advanced slowly, tolerated well Nausea improve, he had no vomiting. Abdominal pain improved as well Electrolytes were replaced Accu-Cheks were ordered before meals and at bedtime with insulin therapy as needed Again he was counseled about alcohol abuse, he agreed to continue with AA Continue with Librium when necessary Continue multivitamin and folic acid Patient did develop fever overnight, chest x-ray was checked and it was negative Pt clinically improve, tolerated diet Patient was discharged home in stable condition Instructed to contact PCP if he developed fever, cough, malaise. Instructed to abstain completely from alcohol Patient was okay to return to work in 2 days Pt Condition on Discharge: Stable Discharge Disposition: Discharge Home Discharge Instructions DIET: Follow Instructions for: Heart Healthy Diet Speech Therapy-Diet Recommends: Regular Activities you can perform: Weight Bearing as Rafi Follow up Referrals: PCP Follow-up Continued Medications: Chlordiazepoxide (Chlordiazepoxide) 10 Mg Cap 10 MG PO QID PRN Anxiety Ref 0 CAP Cholecalciferol (D-1000) 1,000 Unit Tab Coenzyme Q10 (Bulk) (Coenzyme Q10 (Bulk)) 1 Powd Cyanocobalamin (B-12) 1,000 Mcg Lozg 1000 MCG BUCCAL DAILY Nutritional Supplement #1 Ref 0 BOTTLE Folic Acid (Folic Acid) 5 Mg Cap 1 MG PO DAILY Nutritional Supplement Ref 0 CAP Glimepiride (Glimepiride) 2 Mg Tab 2 MG PO DAILY Take with breakfast or first main meal Blood Sugar Management #30 Ref 0 TAB Glimepiride (Glimepiride) 4 Mg Tab 4 MG PO HS Take with breakfast or first main meal Blood Sugar Management #30 Ref 0 TAB Metformin (Metformin) 500 Mg Tab 500 MG PO BIDPC With meals Blood Sugar Management #60 Ref 0 TAB Mirtazapine (Mirtazapine) 30 Mg Tab 30 MG PO HS Depression Control #30 Ref 0 TAB Multiple Vitamin (Multiple Vitamin) 1 Tab 1 TAB PO DAILY Nutritional Supplement Ref 0 TAB Omeprazole (Omeprazole) 40 Mg Cap 40 MG PO DAILY #30 Ref 0 CAP Paroxetine (Paxil) 40 Mg Tab 40 MG PO DAILY #30 Ref 0 TAB Potassium Chloride Microencaps (Potassium Chloride Microencaps) 20 Meq Tab 20 MEQ PO DAILY Electrolyte Replacement #30 Ref 0 TAB Trazodone (Trazodone) 100 Mg Tab 100 MG PO HS Control Depression #30 Ref 0 TAB Discontinued Medications: Magnesium Gluconate (Mag-G) 500 Mg Tab Magnesium Oxide (Magnesium Oxide) 400 Mg Tab 400 MG PO BID Nutritional Supplement Days 7 Ref 0 TAB Potassium Chloride ER (Potassium Chloride ER) 20 Meq Tab 20 MEQ PO BID Electrolyte Replacement Days 7 Ref 0 TAB Carlee Bernstein Sep 18, 2016 09:12
--- NOTE | 2016-09-18 09:43 | RADRPT ---
EXAM DATE/TIME: 09/18/2016 09:03 [facility] COMPARISON: CHEST SINGLE AP, August 05, 2016, 2:21. INDICATIONS : Fever. MEDICAL HISTORY : None. SURGICAL HISTORY : None. ENCOUNTER: Initial ACUITY: 1 day PAIN SCORE: 0/10 LOCATION: Bilateral chest FINDINGS: A single view of the chest demonstrates the lungs to be symmetrically aerated without evidence of mas s, infiltrate or effusion. The cardiomediastinal contours are unremarkable. Osseous structures are intact. CONCLUSION: No acute disease. Omar Hill MD on September 18, 2016 at 9:34 Board Certified Radiologist. This report was verified electronically.
--- NOTE | 2016-09-18 09:45 | MH ---
cc: ALANIS BRADLEY DATE OF ADMISSION 09/15/[address] Tien Wakefield CHIEF COMPLAINT The patient came to the ER complaining of severe abdominal pain for 1 day. HISTORY OF PRESENT ILLNESS This is an unfortunate 40-year-old male with history of alcoholism, recurrent pancreatitis who is a chronic smoker. He is a chronic alcohol abuser. However, he claimed that he stopped drinking about a year ago and was sober for one whole year. He recently got a new job and he got excited and did start drinking. He claimed that he only drank one-time multiple shots of vodka. Soon afterwards, he developed abdominal pain. The pain was severe, constant, radiated to his back with significant nauseousness. He vomited sometimes, denies hematemesis. Denies fever or chills. Denies diarrhea. He went to ER where he was noted to be quite tender. Lab showed evidence of elevated liver and pancreatic enzymes. He was diagnosed with pancreatitis. Recommendation was given by the ER physician for him to be admitted to the hospital. The patient was in [place] emergency room. However, there did not have room, thus, he was transferred to [facility]. PAST MEDICAL HISTORY 1. History of depression 2. Diabetes 3. Alcoholism 4. History of recurrent pancreatitis 5. Chronic hypokalemia. 6. COPD. PAST SURGICAL HISTORY 1. Tonsillectomy. 2. Previous endoscopy. SOCIAL HISTORY He used to drink alcohol on a regular basis. Stopped drinking alcohol for a hole year until two days ago. He has smoked E cigarettes. He denies intravenous drug abuse. ALLERGIES NO KNOWN DRUG ALLERGIES MEDICATIONS Home medication -. 1. Magnesium oxide 400 mg daily 2. Remeron 30 mg bedtime 3. Paxil 40 mg daily, 4. Trazodone 100 mg at bedtime, 5. Metformin 500 mg twice a day 6. Multivitamin daily 7. CoQ 10 daily 8. Omeprazole 40 mg daily 9. Magnesium daily, 10. Potassium 20 mEq b.i.d. 11. Amaryl 2 mg daily 12. Folic acid daily, 13. Vitamin D daily FAMILY HISTORY Positive for diabetes. Dad has diabetes. His mother is 60 years old. She is healthy. He has one brother and one sister. They are healthy. REVIEW OF SYSTEMS The patient denies headache, dizziness, loss of consciousness, sore throat, dysphagia, odynophagia. Denies chest pain, shortness, orthopnea, paroxysmal nocturnal dyspnea. Denies fever, chills, night sweats. Denies melena or bright red blood per rectum. Otherwise review of systems negative for 10 systems except for what is mentioned above. PHYSICAL EXAMINATION GENERAL: Middle-aged obese male lying in bed not in any acute distress. Alert and oriented times three. VITAL SIGNS: Upon arrival blood pressure 135/73, pulse of 82, respirations 16, temperature 98.7, O2 sat initially 90%, most recent blood pressure 105/62, pulse of 76. HEENT: Normocephalic, atraumatic. Eyes - extraocular muscles intact, pupils round and reactive ENT: No throat congestion. No oral ulcers. No thrush. Ears clear. NECK: Supple. No JVD. No lymph node, no bruits. CARDIOVASCULAR: S1, S2 audible. No murmurs, rubs or gallops. LUNGS: Clear to auscultation. ABDOMEN: Soft. The patient has epigastric tenderness and some voluntary guarding, no rebound tenderness. EXTREMITIES: No edema, cyanosis or clubbing. Feet warm to touch. LABORATORY DATA Sodium 137, potassium 2.3, chloride 86, bicarb 14, BUN of 10, creatinine 0.82, glucose 129. ALT 367, AST 101, ALT 143, total bili 1.5. Total protein 7.6, albumin 3.6. His lipase 6 Repeat potassium today is 2.5. White count 14.1, hemoglobin 13.4, hematocrit his 40.3. Platelet count 276. ASSESSMENT 1. Acute abdominal pain with elevated lipase after drinking alcohol consist pancreatitis, recurrent. 2. Elevated LFTs in cholestatic pattern. Rule out biliary obstruction, intrahepatic or extrahepatic. Rule out choledocholithiasis 3. Hypokalemia 4. Leukocytosis 5. Diabetes 6. Depression/bipolar disorder 7. Chronic smoker. 8. Alcohol user. PLAN The patient admitted to hospital. Put him on IV fluid and hydrate him aggressively. We will use D5 half NS @ 150 cc an hour. Replace potassium IV n.p.o. Give IV analgesics. Pepcid for GI protection. Use Librium as needed for anxiety. I have counseled patient against alcohol use, advised him to completely abstain from it. Accu-Chek q.i.d. with sliding scale coverage. GI consultation. Follow LFTs, CBC, electrolyte. Further management of this patient will be dependent on the hospital course. The patient meets inpatient criteria due to his severe pancreatitis and electrolytes abnormalities. He needs aggressive IV fluid resuscitation and pain control. Expected length of stay is about 3-4 days, possible discharge home when stable. MD MICHELLE Murry/ /5:00 PM /9:37 AM [email or web address]
[2016-09-18] MEDS: SODIUM CHLOR 0.9% 1000 ML INJ 1,000 ML IV SCH (11:18)
--- NOTE | 2016-09-18 12:23 | HHI.GIFU ---
Subjective Remarks Resting in bed. Tolerating full liquid diet. States that his pain is still there, but stable. However, states if he is not going to go home today, then he would like to go back on the IV dilaudid. (Angelia Ackerman) Objective Vitals I&O Vital Signs Date Time Temp Pulse Resp B/P Pulse Ox O2 Delivery O2 Flow Rate FiO2 09/18/16 08:00 97.4 66 20 99/60 91 09/18/16 04:00 97.7 69 18 111/64 92 09/18/16 00:29 75 09/18/16 00:00 97.9 62 18 100/58 95 09/17/16 21:42 18 09/17/16 20:00 97.6 71 18 105/64 98 09/17/16 16:00 101.2 90 18 128/78 92 I/O 09/17/16 09/17/16 09/17/16 09/18/16 09/18/16 09/18/16 07:00 15:00 23:00 07:00 15:00 23:00 Intake Total 2255 ml 1320 ml 480 ml 120 ml 506 ml Balance 2255 ml 1320 ml 480 ml 120 ml 506 ml Intake Oral 240 ml 1320 ml 480 ml 120 ml IV Total 2015 ml 506 ml # Voids 1 2 3 1 # Bowel Movements 0 0 0 0 Laboratory Laboratory Tests Test 09/18/16 05:36 White Blood Count 7.3 Red Blood Count 4.04 Hemoglobin 12.4 Hematocrit 37.2 Mean Corpuscular Volume 92.2 Mean Corpuscular Hemoglobin 30.7 Mean Corpuscular Hemoglobin 33.3 Concent Red Cell Distribution Width 14.3 Platelet Count 305 Mean Platelet Volume 8.7 Sodium Level 144 Potassium Level 3.4 Chloride Level 101 Carbon Dioxide Level 32.6 Anion Gap 10 Blood Urea Nitrogen 4 Creatinine 0.61 Estimat Glomerular Filtration 145 Rate Random Glucose 183 Calcium Level 8.7 Imaging Last Impressions Chest X-Ray 09/18/16 0000 Signed Impressions: Service Date/Time: Sunday, September 18, 2016 09:03 - CONCLUSION: No acute disease. Omar Hill MD Orbit X-Ray 09/15/16 0000 Signed Impressions: Service Date/Time: Thursday, September 15, 2016 09:00 - CONCLUSION: No MRI incompatible foreign body is identified. Ezra Paredes MD [facility]CR Cholangiopancreatography MRI 09/15/16 0000 Signed Impressions: Service Date/Time: Thursday, September 15, 2016 09:44 - CONCLUSION: 1. Mild dilatation of the central intrahepatic ducts and the extrahepatic biliary ducts without a focal mass or filling defect. 2. Small gallstones. 3. Dilated pancreatic duct in the pancreatic head with atrophy of the right body and tail likely from prior inflammatory change. This appearance was present on the prior CT examination. 4. 1.3 cm mass in the right lobe of the liver likely representing a hemangioma. Fred Valiente MD Physical Exam HEENT: Pupils round and reactive to light; normocephalic; atraumatic; no jaundice. Throat is clear. NECK: Neck is supple, no JVD, no lymphadenopathy. CHEST: CTA CARDIAC: Regular ABDOMEN: +BS, soft, nondistended, epigastric/luq tenderness EXTREMITIES: No clubbing, cyanosis, or edema. SKIN: Normal; no rash; no jaundice. DUAL RATE DEALER: No focal deficits; alert and oriented times three. (Angelia Ackerman [facility]) Assessment and Plan Plan ASSESSMENT: - Acute pancreatitis, likely related to ETOH. Pt has had multiple episodes of pancreatitis, all related to ETOH in the past. He reports that he has been abstaining and is in AA, but had a relapse and went on a binge this past Sunday and that his symptoms began on . On admission, had lipase of 2967 with elevated LFTs with a total bilirubin of 1.5, AST 101, ALT 143, alkaline phosphatase 367. MRCP (09/15/16) ---> 1. Mild dilatation of the central intrahepatic ducts and the extrahepatic biliary ducts without a focal mass or filling defect. 2. Small gallstones. 3. Dilated pancreatic duct in the pancreatic head with atrophy of the right body and tail likely from prior inflammatory change. This appearance was present on the prior CT examination. 4. 1.3 cm mass in the right lobe of the liver likely representing a hemangioma. His lipase is trending down, 746 yesterday. Yesterday's LFTs improving with T. Bili 0.7, AST 27, ALT 58, ALk Phosph 237. Pain is improving. Tolerating full liquid diet. D/W patient importance of complete ETOH cessation. - Hematemesis x 1 on . Pt reports that he had been persistently vomiting and had one episode of having a very small amount of bright red blood mixed within clear emesis. He has not had any further episodes and his HH has been stable. PPI. No further episodes. - Hypokalemia, replacement per primary. - Anemia, mild. 12.4/37.2. - HTN, Hyperlipidemia, DM per primary PLAN: - Low fat diet - PPI - No ETOH - FU DANELLE 2 weeks - Okay to d/c home from GI standpoint if he tolerates low fat diet - Supportive care - Pt seen and examined by Dr. Gilmore and myself and this note is written on her behalf (Angelia Ackerman) Angelia Ackerman Sep 18, 2016 12:23 Ciara Gilmore MD Sep 18, 2016 20:02
== END 2016-09-18 13:29 | disposition home or self-care (01) | DRG 440 ==
LOC: PHED 22:58 → PHEDA 09-15 02:25 → PHEDH 09-15 06:24 → N04A 09-15 15:30
PROVIDERS: ADMIT Specialist; ATTEND Specialist
DX: K85.20 Alcohol induced acute pancreatitis without necrosis or infection (principal); I10 Essential (primary) hypertension; K21.9 Gastro-esophageal reflux disease without esophagitis; E78.5 Hyperlipidemia, unspecified; J45.909 Unspecified asthma, uncomplicated; F17.210 Nicotine dependence, cigarettes, uncomplicated; D18.09 Hemangioma of other sites; E11.9 Type 2 diabetes mellitus without complications; E87.6 Hypokalemia; F10.10 Alcohol abuse, uncomplicated; Z79.84 Long term (current) use of oral hypoglycemic drugs
CPT/HCPCS: 71010; 74181; 76377; 80048; 80053; 82948; 83690; 83735; 85025; 85027; 96361; 96374; 96375; C9113; J1170; J1815; J2270; J2405; J3475; J3480; J7030; J7042

== ENCOUNTER 2016-11-18 23:50 | Observation (INO) | payer OTHER ==
[~2016-11-18] VITALS: Ht 172.7 cm; Wt 76.9 kg
[2016-11-18 23:50] VITALS: BP 117/81; PULSE 80; RESP 16; TEMP 98.2; O2SAT 95
[~2016-11-18 23:50] MED LIST changes: +CHLO10CA2 PO; +GLIM2TAB PO; +GLIM4TAB PO; -MAG-500T; -MAGN400T2 PO; +MIRT30TA PO; +PAXI40TA PO; -POTA-163 PO; +TRAZ100T4 PO
[2016-11-19] VITALS (14 sets, daily range): BP systolic 95–129; BP diastolic 51–77; PULSE 60–85; RESP 16–20; TEMP 96.2–98.8; O2SAT 90–98
[2016-11-19 00:26] LABS: AUTOMATED NEUTROPHIL # 6.6 TH/MM3 (1.8-7.7); BASOPHIL % 0.4 % (0.0-2.0); EOSINOPHIL # 0.1 TH/MM3 (0-0.4); EOSINOPHIL % 1.3 % (0.0-4.0); HEMATOCRIT 41.4 % (39.0-51.0); HEMO FLAGS DIFF FINAL; LYMPH % 26.5 % (9.0-44.0); LYMPHOCYTE # 2.6 TH/MM3 (1.0-4.8); MEAN CORPUSCULAR HEMOGLOBIN 30.4 PG (27.0-34.0); MEAN CORPUSCULAR HGB CONC 33.4 % (32.0-36.0); NEUT % 67.8 % (16.0-70.0); PLATELET COUNT 240 TH/MM3 (150-450); RED BLOOD COUNT 4.55 MIL/MM3 (4.50-5.90); RED CELL DISTRIBUTION WIDTH 12.5 % (11.6-17.2); WHITE BLOOD COUNT 9.7 TH/MM3 (4.0-11.0)
[2016-11-19] MEDS ORDERED: METO25TA3 PO (00:29)
[2016-11-19 00:37] LABS: APTT (PATIENT) 29.4 SEC (24.3-30.1); INTERNATIONAL NORMALIZED RATIO 0.9 RATIO; PROTHROMBIN TIME - PATIENT 9.8 SEC (9.8-11.6)
[2016-11-19 00:40] LABS: BICARBONATE 31.8 MEQ/L (21.0-32.0)
[2016-11-19 00:42] LABS: POTASSIUM 2.1 MEQ/L (3.5-5.1)
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
[2016-11-19] MEDS ORDERED: NS + KCL 40 MEQ INJ 1,000 ML IV SCH (01:00)
[2016-11-19] MEDS ORDERED: POTASSIUM CHLOR 10 MEQ PREMIX 100 ML IV ONE (01:00)
[2016-11-19] MEDS ORDERED: THIAMINE INJ 100 MG in SODIUM CHLORIDE 0.9% INJ 100 ML IV ONE (01:00)
[2016-11-19] MEDS ORDERED: POTASSIUM CHLORIDE 20 MEQ CONTROLLED RELEASE TAB PO ONE ×3 (01:00→11:15)
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
[2016-11-19] MEDS ORDERED: IOHEXOL 350 MG/ML 10 ML VIAL (for RAD DIAG) IV ONE (01:01)
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
[2016-11-19] MEDS ORDERED: KETOROLAC TROMETHAMINE 30 MG/ML (IVP) VIAL IV PUSH ONE (02:30)
[2016-11-19] MEDS ORDERED: SODIUM CHLORIDE 0.9% FLUSH 10 ML FLUSH IVF PRN ×2 (02:45)
[2016-11-19 02:51] LABS: BLOOD, URINE NEG (NEG); GLUCOSE,URINE NEG (NEG); KETONE, URINE NEG (NEG); NITRITE,URINE NEG (NEG); PH, URINE 6.5 (5.0-8.5)
[2016-11-19 02:56] LABS: RBC, URINE 0-2 /hpf (0-3); SQUAMOUS EPITHELIAL CELL URINE 0-5 /hpf (0-5); URINE COLOR YELLOW (YELLW/STRAW); WBC, URINE 0-2 /hpf (0-5)
[2016-11-19 02:57] LABS: COMMENT (UR) CULT NOT INDICATED; CULTURE IF INDICATED CULT NOT INDICATED
[2016-11-19] MEDS ORDERED: ACETAMINOPHEN 325 MG TAB PO PRN (03:30)
[2016-11-19] MEDS: NS + KCL 40 MEQ INJ 1,000 ML IV SCH ×3 (04:12→21:53)
[2016-11-19] MEDS: SODIUM CHLORIDE 0.9% FLUSH 10 ML FLUSH IV FLUSH SCH ×2 (07:18→21:53)
[2016-11-19 08:54] LABS: AUTOMATED NEUTROPHIL # 3.9 TH/MM3 (1.8-7.7); BASOPHIL # 0.1 TH/MM3 (0-0.2); BASOPHIL % 0.9 % (0.0-2.0); EOSINOPHIL # 0.3 TH/MM3 (0-0.4); EOSINOPHIL % 3.6 % (0.0-4.0); HEMO FLAGS DIFF FINAL; LYMPH % 31.6 % (9.0-44.0); LYMPHOCYTE # 2.2 TH/MM3 (1.0-4.8); MEAN CELL VOLUME 91.5 FL (80.0-100.0); MEAN CORPUSCULAR HEMOGLOBIN 31.4 PG (27.0-34.0); MEAN CORPUSCULAR HGB CONC 34.3 % (32.0-36.0); NEUT % 55.9 % (16.0-70.0); PLATELET COUNT 200 TH/MM3 (150-450); RED BLOOD COUNT 4.15 MIL/MM3 (4.50-5.90); RED CELL DISTRIBUTION WIDTH 12.8 % (11.6-17.2); WHITE BLOOD COUNT 7.1 TH/MM3 (4.0-11.0)
[2016-11-19 09:20] LABS: BICARBONATE 31.2 MEQ/L (21.0-32.0)
[2016-11-19 09:37] LABS: POTASSIUM 2.3 MEQ/L (3.5-5.1)
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
[2016-11-19] MEDS: FOLIC ACID 1 MG TAB PO SCH (11:41)
[2016-11-19] MEDS: POTASSIUM CHLORIDE 20 MEQ CONTROLLED RELEASE TAB PO SCH (11:41)
[2016-11-19] MEDS: MULTIVITAMIN TAB PO SCH (11:43)
[2016-11-19] MEDS: CYANOCOBALAMIN 1,000 MCG TAB PO SCH (11:43)
[2016-11-19] MEDS: MAGNESIUM SULFATE 1 GM PREMIX 100 ML IV SCH ×2 (11:43→11:53)
[2016-11-19] MEDS: PANTOPRAZOLE SOD 40 MG DELAYED RELEASE TAB PO SCH (11:43)
[2016-11-19] MEDS: METOPROLOL TARTRATE 25 MG TAB PO SCH (11:43)
[2016-11-19] MEDS: metFORMIN HCL 500 MG TAB PO SCH ×2 (11:44→17:57)
[2016-11-19] MEDS: THIAMINE HCL 100 MG TAB PO SCH (11:53)
[2016-11-19] MEDS: MORPHINE SULFATE 4 MG/ML INJ IV PUSH PRN ×3 (11:54→20:40)
[2016-11-19] MEDS: LORazepam 1 MG TAB PO SCH ×2 (16:30→21:52)
--- NOTE | 2016-11-19 16:58 | EKG ---
Date Performed: 11/19/2016 Time Performed: 01:15:52 PTAGE: 41 years EKG: Sinus rhythm Incomplete Right bundle branch block Possible septal infarct - age undetermined Compared to prior tr acing no significant change Abnormal ECG PREVIOUS TRACING : 05/11/2014 21.08 DOCTOR: Radha Echavarria Interpretating Date/Time 11/19/2016 16:58:05
[2016-11-20] VITALS (8 sets, daily range): BP systolic 94–117; BP diastolic 69–79; PULSE 60–69; RESP 17–20; TEMP 95.9–98; O2SAT 92–97
[2016-11-20] MEDS: MORPHINE SULFATE 4 MG/ML INJ IV PUSH PRN ×5 (00:50→21:42)
[2016-11-20] MEDS: LORazepam 1 MG TAB PO SCH ×3 (05:13→21:41)
[2016-11-20 08:04] LABS: AUTOMATED NEUTROPHIL # 2.8 TH/MM3 (1.8-7.7); BASOPHIL # 0.1 TH/MM3 (0-0.2); EOSINOPHIL # 0.3 TH/MM3 (0-0.4); EOSINOPHIL % 4.3 % (0.0-4.0); HEMATOCRIT 37.8 % (39.0-51.0); HEMO FLAGS DIFF FINAL; LYMPH % 40.7 % (9.0-44.0); LYMPHOCYTE # 2.5 TH/MM3 (1.0-4.8); MEAN CELL VOLUME 93.3 FL (80.0-100.0); MEAN CORPUSCULAR HEMOGLOBIN 31.1 PG (27.0-34.0); MEAN CORPUSCULAR HGB CONC 33.3 % (32.0-36.0); MONO % 7.5 % (0.0-8.0); NEUT % 46.5 % (16.0-70.0); PLATELET COUNT 183 TH/MM3 (150-450); RED BLOOD COUNT 4.05 MIL/MM3 (4.50-5.90); RED CELL DISTRIBUTION WIDTH 12.8 % (11.6-17.2); WHITE BLOOD COUNT 6.2 TH/MM3 (4.0-11.0)
[2016-11-20 08:25] LABS: ALKALINE PHOSPHATASE 72 U/L (45-117); ALT (GPT) 23 U/L (12-78); ANION GAP 6 MEQ/L (5-15); AST (GOT) 22 U/L (15-37); BICARBONATE 33.1 MEQ/L (21.0-32.0); BLOOD UREA NITROGEN 7 MG/DL (7-18); CHLORIDE 105 MEQ/L (98-107); GLOMERULAR FILTRATION RATE 174 ML/MIN (>89); SODIUM (NA) 144 MEQ/L (136-145); TOTAL BILIRUBIN ADULT 0.6 MG/DL (0.2-1.0)
[2016-11-20 08:36] LABS: POTASSIUM 2.9 MEQ/L (3.5-5.1)
[2016-11-20] MEDS: metFORMIN HCL 500 MG TAB PO SCH ×2 (08:42→16:18)
[2016-11-20] MEDS: PANTOPRAZOLE SOD 40 MG DELAYED RELEASE TAB PO SCH (08:42)
[2016-11-20] MEDS: FOLIC ACID 1 MG TAB PO SCH (08:42)
[2016-11-20] MEDS: METOPROLOL TARTRATE 25 MG TAB PO SCH (08:42)
[2016-11-20] MEDS: CYANOCOBALAMIN 1,000 MCG TAB PO SCH (08:42)
[2016-11-20] MEDS: THIAMINE HCL 100 MG TAB PO SCH (08:42)
[2016-11-20] MEDS: MULTIVITAMIN TAB PO SCH (08:43)
[2016-11-20] MEDS: POTASSIUM CHLORIDE 20 MEQ CONTROLLED RELEASE TAB PO SCH (08:43)
[2016-11-20] MEDS: SODIUM CHLORIDE 0.9% FLUSH 10 ML FLUSH IV FLUSH SCH ×2 (08:47→21:41)
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
[2016-11-20] MEDS: NS + KCL 40 MEQ INJ 1,000 ML IV SCH ×2 (11:50→19:43)
[2016-11-20] MEDS: MAGNESIUM SULFATE 1 GM PREMIX 100 ML IV SCH ×2 (16:19→19:42)
== END 2016-11-20 22:30 | disposition left against medical advice (07) ==
LOC: PHED 23:50 → PHEDA 11-19 02:43 → PH3A 11-19 03:40
PROVIDERS: ADMIT Family Medicine; ATTEND Family Medicine
DX: M54.5 Low back pain (principal); M54.2 Cervicalgia; E87.6 Hypokalemia; I10 Essential (primary) hypertension; K21.9 Gastro-esophageal reflux disease without esophagitis; M51.36 Other intervertebral disc degeneration, lumbar region; J45.909 Unspecified asthma, uncomplicated; E78.5 Hyperlipidemia, unspecified; E11.9 Type 2 diabetes mellitus without complications; E78.00 Pure hypercholesterolemia, unspecified; F17.200 Nicotine dependence, unspecified, uncomplicated; Z79.84 Long term (current) use of oral hypoglycemic drugs; V43.52XA Car driver injured in collision with other type car in traffic accident, initial encounter; R07.9 Chest pain, unspecified; F10.120 Alcohol abuse with intoxication, uncomplicated; R94.31 Abnormal electrocardiogram [ECG] [EKG]; Y90.8 Blood alcohol level of 240 mg/100 ml or more
CPT/HCPCS: 70450; 71010; 72100; 72125; 72170; 74177; 80048; 80053; 80307; 81001; 83735; 85025; 85610; 85730; 86850; 86900; 86901; 93005; 96365; 96368; 96375; 99285; G0378; J1885; J2270; J3411; J3475; J3480; Q9967

== ENCOUNTER 2016-12-27 22:49 | Emergency (ER) | payer SELFPAY ==
[~2016-12-27] VITALS: Ht 152.4 cm; Wt 71.6 kg
[~2016-12-27 22:49] MED LIST changes: -CHLO10CA2 PO; -FOLI5CAP PO; -GLIM2TAB PO; -GLIM4TAB PO; +METO25TA3 PO; -MIRT30TA PO; -OMEP40CA2 PO; -PAXI40TA PO; -TRAZ100T4 PO
[2016-12-27 22:55] VITALS: BP 105/74; PULSE 69; RESP 18; TEMP 98.3
[2016-12-27] MEDS ORDERED: LIDOCAINE 1%/EPINEPHrine 1:100,000 SOLN 30 ML VIAL ONE (23:09)
[2016-12-27] MEDS ORDERED: LIDOCAINE 1%/EPINEPHrine 1:100,000 SOLN 20 ML VIAL INFIL ONE (23:15)
[2016-12-27] MEDS ORDERED: TETANUS/DIPHTHERIA TOXOID ADULT 0.5 ML VIAL IM ONE (23:15)
--- NOTE | 2016-12-28 00:02 | PD ---
HPI Chief Complaint: Head Injury Time Seen by Provider: 23:00 Travel History International Travel<30 days: No Contact w/Intl Traveler<30days: No Traveled to known affect area: No History of Present Illness HPI 41-year-old male brought in by his friend for evaluation of forehead laceration after a witnessed fall. Patient has a history of diabetes and alcoholism. Patient's friend states that the patient had several vodka drinks throughout the evening, and states that the patient drinks to this extent daily. Patient admits to this and states that he has sought help, however he continues to drink. He denies suicidal or homicidal ideation. The patient's friend's witnessed the fall, and the patient's friend tells me that she saw the patient stumbled and fell to the ground. There is a brief few second LOC after the fall. Patient is now complaining of right forehead pain. He denies neck or back pain. No upper or lower extremity pain. No chest pain or dyspnea. No abdominal pain. Blood glucose checked at the bedside time of my assessment was 154. PFSH Past Medical History Arthritis: No Asthma: Yes Autoimmune Disease: No Anxiety: No Depression: No Heart Rhythm Problems: No Cancer: No Cardiovascular Problems: Yes High Cholesterol: Yes Chest Pain: Yes Congestive Heart Failure: No COPD: No Cerebrovascular Accident: No Diabetes: Yes Patient Takes Glucophage: Yes (12/28/16 1700) Diminished Hearing: No Endocrine: Yes Gastrointestinal Disorders: Yes (pancreatitis) GERD: Yes Genitourinary: No Hiatal Hernia: No Hypertension: Yes Immune Disorder: No Implanted Vascular Access Dvce: No Kidney Stones: No Musculoskeletal: Yes (RIGHT LEG/TOES BROKEN) Neurologic: No Psychiatric: No Reproductive: No Respiratory: Yes (ASTHMA ) Immunizations Current: Yes Migraines: No Pancreatitis: Yes Renal Failure: No Seizures: No Sleep Apnea: No Thyroid Disease: No Ulcer: No Tetanus Vaccination: < 5 Years Influenza Vaccination: Yes Past Surgical History Abdominal Surgery: No AICD: No Arteriovenous Shunt: No Cardiac Surgery: No Ear Surgery: No Endocrine Surgery: No Eye Surgery: No Genitourinary Surgery: No Gynecologic Surgery: No Insulin Pump: No Joint Replacement: No Oral Surgery: Yes (TONSILLECTOMY) Pacemaker: No Thoracic Surgery: No Other Surgery: Yes Social History Alcohol Use: Yes (DAILY) Tobacco Use: Yes (1/2 PPD) Substance Use: No (DENIES) Allergies-Medications (Allergen,Severity, Reaction): Coded Allergies: No Known Allergies (Unverified , 12/27/16) Reported Meds & Prescriptions Reported Meds & Active Scripts Active Reported Metoprolol Tartrate 25 Mg Tab 25 Mg PO DAILY Metformin (Metformin HCl) 500 Mg Tab 500 Mg PO BIDPC With meals Potassium Chloride Microencaps 20 Meq Tab 20 Meq PO DAILY Multiple Vitamin 1 Tab 1 Tab PO DAILY B-12 (Cyanocobalamin) 1,000 Mcg Lozg 1,000 Mcg BUCCAL DAILY Coenzyme Q10 (Bulk) (Coenzyme Q10) 1 Powd D-1000 (Cholecalciferol) 1,000 Unit Tab Review of Systems Except as stated in HPI: all other systems reviewed are Neg Physical Exam Narrative GENERAL: Well-developed, well-nourished, awake, alert, GCS 15, no apparent distress. SKIN: Agonal right forehead laceration above right eyebrow, moderate depth, no active bleeding, no visible contaminants, galea intact. Superficial abrasion to right face between upper lip and nose. HEAD: Skin exam as above. No craniofacial step-offs. Normocephalic. EYES: Pupils equal, round, 4 mm, reactive to light. EOMI. No scleral icterus. No injection or drainage. ENT: Mucous membranes pink and moist. NECK: Trachea midline. No JVD. No midline vertebral step-off or tenderness. CARDIOVASCULAR: Regular rate and rhythm. RESPIRATORY: No accessory muscle use. Clear to auscultation. Breath sounds equal bilaterally. GASTROINTESTINAL: Abdomen soft, non-tender, nondistended. MUSCULOSKELETAL: No obvious deformities. No clubbing. No cyanosis. No edema. NEUROLOGICAL: Awake and alert. No obvious cranial nerve deficits. Motor grossly within normal limits. Normal speech. No focal deficits. PSYCHIATRIC: Appropriate mood and affect; insight and judgment normal. Data Data Last Documented VS Vital Signs Date Time Temp Pulse Resp B/P Pulse Ox O2 Delivery O2 Flow Rate FiO2 12/27/16 23:22 69 18 95 Room Air 12/27/16 22:55 98.3 105/[address] Brain W/O Iv Contrast(Rout) (12/27/16 ) Ct Cerv Spine W/O Contrast (12/27/16 ) Tetanus/Diphtheria Tox Adult (Tetanus/Di (12/27/16 23:15) Lidocai-Epi 1%-1:100,000 Inj (Xylocaine- (12/27/16 23:09) Lidocai-Epi 1%-1:100,000 Inj (Xylocaine- (12/27/16 23:15) Acetamin-Hydrocod 325-5 Mg ([place] 5-325 (12/28/16 00:15) MDM Medical Decision Making Medical Screen Exam Complete: Yes Emergency Medical Condition: Yes Medical Record Reviewed: Yes Differential Diagnosis Right forehead laceration, head injury, intracranial trauma, cervical spine injury Narrative Course Right forehead laceration repaired by me with 11 simple interrupted sutures. See procedure note. At approximately midnight at the end of my shift the patient was signed out to Dr. Juarez follow-up with CT head and cervical spine. If these are negative the patient can be discharged home with his friend who is here and is sober. Suture removal in 3-5 days. Patient informed on when to return to the emergency Department sooner. I counseled the patient on the importance of alcohol cessation. I advised to follow-up with [facility] for assistance with this. Procedures Procedure Narrative LACERATION LOCATION: Right forehead LENGTH: 4 cm NUMBER OF STITCHES/ESTEPHANIE: 11 simple interrupted 5-0 Prolene sutures REPAIR: The area of the laceration was prepped with Betadine and sterilely draped. The laceration was infiltrated with 3 cc of 1% lidocaine with epinephrine. The wound was copiously irrigated and explored without evidence of foreign body, tendon injury or neurovascular injury. The wound was closed using 11 simple interrupted 5-0 Prolene sutures. This was a single layer repair. A sterile dressing was applied. The patient was advised to keep the dressing clean and dry. Patient tolerated the procedure well. Diagnosis Primary Impression: Forehead laceration Qualified Code: S01.81XA - Forehead laceration, initial encounter Additional Impressions: Fall Qualified Code: W19.XXXA - Fall, initial encounter Alcohol intoxication Qualified Code: F10.920 - Alcohol intoxication, uncomplicated Head injury Qualified Code: S09.90XA - Head injury, initial encounter Referrals: Primary Care Physician 3 days [facility] 1 day Additional Instructions: Have sutures removed in 4-5 days. Follow-up with a primary care physician this week. Follow-up with [facility] for assistance with quitting alcohol. Return to the emergency department for worsening symptoms or any other concerns. Disposition: 01 DISCHARGE HOME Condition: Stable Gurwinder Callaway MD Dec 28, 2016 00:01 Gurwinder Callaway MD Dec 28, 2016 00:01
[2016-12-28] MEDS ORDERED: ACETAMINOPHEN/HYDROcodone 325 MG/5 MG TAB PO ONE (00:15)
--- NOTE | 2016-12-28 00:44 | RADRPT ---
EXAM DATE/TIME: 12/28/2016 00:00 [facility] COMPARISON: CT BRAIN W/O CONTRAST, November 19, 2016, 0:32. INDICATIONS : Trauma, fall. RADIATION DOSE: 58.49 CTDIvol (mGy) MEDICAL HISTORY : Hypertension. Diabetes mellitus type 2. SURGICAL HISTORY : None. ENCOUNTER: Initial ACUITY: 1 day PAIN SCALE: 5/10 LOCATION: cranial TECHNIQUE: Multiple contiguous axial images were obtained of the head. Using automated exposure control and adj ustment of the mA and/or kV according to patient size, radiation dose was kept as low as reasonably a chievable to obtain optimal diagnostic quality images. DICOM format image data is available electro nically for review and comparison. FINDINGS: CEREBRUM: The ventricles are normal for age. No evidence of midline shift, mass lesion, hemorrhage or acute in farction. No extra-axial fluid collections are seen. POSTERIOR FOSSA: The cerebellum and brainstem are intact. The 4th ventricle is midline. The cerebellopontine angle i s unremarkable. EXTRACRANIAL: The visualized portion of the orbits is intact. SKULL: The calvaria is intact. No evidence of skull fracture. CONCLUSION: Negative noncontrast CT brain. Aristides Heath MD on December 28, 2016 at 0:42 Board Certified Radiologist. This report was verified electronically.
--- NOTE | 2016-12-28 00:50 | RADRPT ---
EXAM DATE/TIME: 12/28/2016 00:00 [facility] COMPARISON: CT CERVICAL SPINE W/O CONTRAST, November 19, 2016, 0:32. INDICATIONS : Trauma, fall. RADIATION DOSE: 26.16 CTDIvol (mGy) MEDICAL HISTORY : Hypertension. Diabetes mellitus type 2. SURGICAL HISTORY : None. ENCOUNTER: Initial ACUITY: 1 day PAIN SCALE: 5/10 LOCATION: neck TECHNIQUE: Volumetric scanning of the cervical spine was performed. Multiplanar reconstructions in the sagittal, coronal and oblique axial planes were performed. Using automated exposure control and adjustment o f the mA and/or kV according to patient size, radiation dose was kept as low as reasonably achievable to obtain optimal diagnostic quality images. DICOM format image data is available electronically f or review and comparison. FINDINGS: There is preservation of vertebral body height in the vertebral bodies are in normal alignment. The posterior elements are intact without evidence of locked or perched facets. The spinous processes ar e intact. The atlantoaxial articulation is intact. C2-C3: No fracture seen. The neural foramina are patent. C3-C4: No fracture seen. The neural foramina are patent. C4-C5: No fracture seen. Mild uncovertebral joint operative field a right-sided with associated mild right neural foraminal narrowing. C5-C6: Broad ridge of osteophytes flattens the ventral margin of the thecal sac. There is moderate severity left-sided bony neuroforaminal stenosis. C6-C7: Advanced degenerative changes with narrowing of the interspace and broad ridge of osteophytes posteri bj. The neural foramen remain patent. C7-T1: No fracture seen. The neural foramina are patent. CONCLUSION: No evidence of compression deformity or spondylolisthesis. Aristides Heath MD on December 28, 2016 at 0:43 Board Certified Radiologist. This report was verified electronically.
[2016-12-28] MEDS ORDERED: IBUP800T23 PO (01:56)
--- NOTE | 2016-12-28 01:57 | PD ---
Physical Exam Time Seen by Provider: 01:54 Narrative : Left this patient with me to check the results of the CT scan and make a disposition, likely discharge. Data Data Last Documented VS Vital Signs Date Time Temp Pulse Resp B/P Pulse Ox O2 Delivery O2 Flow Rate FiO2 12/27/16 23:22 69 18 95 Room Air 12/27/16 22:55 98.3 105/[address] Brain W/O Iv Contrast(Rout) (12/27/16 ) Ct Cerv Spine W/O Contrast (12/27/16 ) Tetanus/Diphtheria Tox Adult (Tetanus/Di (12/27/16 23:15) Lidocai-Epi 1%-1:100,000 Inj (Xylocaine- (12/27/16 23:09) Lidocai-Epi 1%-1:100,000 Inj (Xylocaine- (12/27/16 23:15) Acetamin-Hydrocod 325-5 Mg ([place] 5-325 (12/28/16 00:15) MDM Medical Record Reviewed: Yes Supervised Visit with ELVIRA: Yes Interpretation(s) The CT scan of the cervical spine and brain show no acute change. Differential Diagnosis Skull fracture, intracranial bleed, cervical spine fracture, subluxations cervical spine, cervical strain, contusion scalp/forehead Narrative Course The patient has a laceration/contusion of the forehead. He also has a cervical strain. Plan: The patient will be given Motrin, 800 mg 3 times daily and follow-up with his primary care physician next week. He should discontinue alcohol. Diagnosis Primary Impression: Forehead laceration Qualified Code: S01.81XA - Forehead laceration, initial encounter Additional Impressions: Alcohol intoxication Qualified Code: F10.920 - Alcohol intoxication, uncomplicated Head injury Qualified Code: S09.90XA - Head injury, initial encounter Fall Qualified Code: W19.XXXA - Fall, initial encounter Referrals: Primary Care Physician 3 days [facility] 1 day Additional Instruction: Have sutures removed in 4-5 days. Follow-up with a primary care physician this week. Follow-up with [facility] for assistance with quitting alcohol. Return to the emergency department for worsening symptoms or any other concerns. Med/Other Pt SpecificInfo: Prescription(s) given Scripts Ibuprofen 800 Mg Buf899 Mg PO TID #44 TAB Ref 0 Prov:Easton Juarez MD 12/28/16 Disposition: 01 DISCHARGE HOME Condition: Stable Easton Juarez MD Dec 28, 2016 01:57
[2016-12-28 02:19] VITALS: BP 99/69
== END 2016-12-28 02:21 | disposition home or self-care (01) ==
LOC: PHED 22:49
DX: S01.81XA Laceration without foreign body of other part of head, initial encounter (principal); W19.XXXA Unspecified fall, initial encounter; F10.920 Alcohol use, unspecified with intoxication, uncomplicated; S09.90XA Unspecified injury of head, initial encounter; E78.00 Pure hypercholesterolemia, unspecified; E11.9 Type 2 diabetes mellitus without complications; K85.90 Acute pancreatitis without necrosis or infection, unspecified
CPT/HCPCS: 12013; 70450; 72125; 90471; 90714

== ENCOUNTER 2017-01-07 08:15 | Inpatient (IN) | payer SELFPAY ==
[~2017-01-07] VITALS: Ht 172.7 cm; Wt 73.6 kg
[2017-01-07] VITALS (7 sets, daily range): BP systolic 107–143; BP diastolic 69–95; PULSE 65–113; RESP 16–19; TEMP 97–98.3; O2SAT 92–99
[~2017-01-07 08:15] MED LIST changes: +IBUP800T23 PO
[2017-01-07] MEDS ORDERED: SODIUM CHLOR 0.9% 1000 ML INJ 1,000 ML IV SCH (08:30)
[2017-01-07] MEDS ORDERED: SODIUM CHLORIDE 0.9% FLUSH 10 ML FLUSH IV FLUSH PRN ×2 (08:30→10:30)
[2017-01-07] MEDS ORDERED: ONDANSETRON HCL 4 MG/2 ML VIAL IVP ONE (08:30)
[2017-01-07] MEDS ORDERED: MORPHINE SULFATE 4 MG/ML INJ IV PUSH ONE ×2 (08:30→10:15)
[2017-01-07] MEDS ORDERED: CYAN100025 SL (08:38)
[2017-01-07] MEDS ORDERED: VITA1000 PO (08:38)
[2017-01-07] MEDS ORDERED: MAGN500T2 PO (08:38)
[2017-01-07] MEDS ORDERED: NOVORP2 SQ (08:39)
--- NOTE | 2017-01-07 08:39 | PD ---
HPI Chief Complaint: GI Complaint Time Seen by Provider: 08:25 Travel History International Travel<30 days: No Contact w/Intl Traveler<30days: No Traveled to known affect area: No History of Present Illness HPI 41yo M with PMH of chronic alcohol abuse, alcoholic pancreatitis, DM presents to the ED with c/o epigastric abdominal pain since last night. States pain radiates to back and associated with nausea and vomiting. States he drank 2 beers last night. Denies any fever, chest pain, sob, focal weakness or numbness , diarrhea, dysuria, hematuria. PFSH Past Medical History Arthritis: No Asthma: Yes Autoimmune Disease: No Anxiety: No Depression: No Heart Rhythm Problems: No Cancer: No Cardiovascular Problems: Yes High Cholesterol: Yes Chest Pain: Yes Congestive Heart Failure: No COPD: No Cerebrovascular Accident: No Diabetes: Yes Patient Takes Glucophage: Yes Diminished Hearing: No Endocrine: Yes Gastrointestinal Disorders: Yes (pancreatitis) GERD: Yes Genitourinary: No Hiatal Hernia: No Hypertension: Yes Immune Disorder: No Implanted Vascular Access Dvce: No Kidney Stones: No Musculoskeletal: Yes (RIGHT LEG/TOES BROKEN) Neurologic: No Psychiatric: No Reproductive: No Respiratory: Yes (ASTHMA ) Immunizations Current: Yes Migraines: No Pancreatitis: Yes Renal Failure: No Seizures: No Sleep Apnea: No Thyroid Disease: No Ulcer: No Tetanus Vaccination: < 5 Years Past Surgical History Abdominal Surgery: No AICD: No Arteriovenous Shunt: No Cardiac Surgery: No Ear Surgery: No Endocrine Surgery: No Eye Surgery: No Genitourinary Surgery: No Gynecologic Surgery: No Insulin Pump: No Joint Replacement: No Oral Surgery: Yes (TONSILLECTOMY) Pacemaker: No Thoracic Surgery: No Tonsillectomy: Yes Other Surgery: Yes Social History Alcohol Use: Yes (DAILY) Tobacco Use: Yes (1/2 PPD) Substance Use: No (DENIES) Allergies-Medications (Allergen,Severity, Reaction): Coded Allergies: No Known Allergies (Unverified , 01/07/17) Reported Meds & Prescriptions Reported Meds & Active Scripts Active Ibuprofen 800 Mg Tab 800 Mg PO TID Reported Novolin R Inj (Insulin Human Regular) 1,000 Unit/10 Ml Vial 0 SQ DIRECTED Sliding Scale As Directed. Magnesium Oxide 500 Mg Tab 500 Mg PO DAILY B-12 (Cyanocobalamin) 1,000 Mcg Subl 1,000 Mcg SL DAILY Vitamin D-1000 (Cholecalciferol) 1,000 Unit Tab 1,000 Units PO DAILY Metoprolol Tartrate 25 Mg Tab 25 Mg PO DAILY Metformin (Metformin HCl) 500 Mg Tab 500 Mg PO BIDPC With meals Potassium Chloride Microencaps 20 Meq Tab 20 Meq PO DAILY Multiple Vitamin 1 Tab 1 Tab PO DAILY Coenzyme Q10 (Bulk) (Coenzyme Q10) 1 Powd Review of Systems Except as stated in HPI: all other systems reviewed are Neg Physical Exam Narrative GENERAL: 41yo M in mild distress. SKIN: Focused skin assessment warm/dry. HEAD: Atraumatic. Normocephalic. EYES: Pupils equal and round. No scleral icterus. No injection or drainage. ENT: No nasal bleeding or discharge. Mucous membranes pink and moist. NECK: Trachea midline. No JVD. CARDIOVASCULAR: Regular rate and rhythm. No murmur appreciated. RESPIRATORY: No accessory muscle use. Clear to auscultation. Breath sounds equal bilaterally. GASTROINTESTINAL: Abdomen soft, +TTP epigastric region. No rebound tenderness or guarding. MUSCULOSKELETAL: No obvious deformities. No clubbing. No cyanosis. No edema. NEUROLOGICAL: Awake and alert. No obvious cranial nerve deficits. Motor grossly within normal limits. Normal speech. PSYCHIATRIC: Appropriate mood and affect; insight and judgment normal. Data Data Last Documented VS Vital Signs Date Time Temp Pulse Resp B/P Pulse Ox O2 Delivery O2 Flow Rate FiO2 01/07/17 08:35 98.3 97 18 143/95 96 Room Air Orders Complete Blood Count With Diff (01/07/17 08:30) Comprehensive Metabolic Panel (01/07/17 08:30) Lipase (01/07/17 08:30) Prothrombin Time / Inr (Pt) (01/07/17 08:30) Act Partial Throm Time (Ptt) (01/07/17 08:30) Urinalysis - C+S If Indicated (01/07/17 08:30) Ct Abd/Pel W Iv Contrast(Rout) (01/07/17 08:30) Iv Access Insert/Monitor (01/07/17 08:30) Ecg Monitoring (01/07/17 08:30) Oximetry (01/07/17 08:30) NPO (01/07/17 08:30) Morphine Inj (Morphine Inj) (01/07/17 08:30) Ondansetron Inj (Zofran Inj) (01/07/17 08:30) Sodium Chlor 0.9% 1000 Ml Inj (Ns 1000 M (01/07/17 08:30) Sodium Chloride 0.9% Flush (Ns Flush) (01/07/17 08:30) Iohexol 350 Inj (Omnipaque 350 Inj) (01/07/17 09:58) Morphine Inj (Morphine Inj) (01/07/17 10:15) Labs Laboratory Tests Test 01/07/17 01/07/17 08:55 09:00 White Blood Count 9.0 TH/MM3 Red Blood Count 5.12 MIL/MM3 Hemoglobin 15.8 GM/DL Hematocrit 47.6 % Mean Corpuscular Volume 93.0 FL Mean Corpuscular Hemoglobin 30.8 PG Mean Corpuscular Hemoglobin 33.1 % Concent Red Cell Distribution Width 14.8 % Platelet Count 225 TH/MM3 Mean Platelet Volume 8.8 FL Neutrophils (%) (Auto) 69.3 % Lymphocytes (%) (Auto) 19.9 % Monocytes (%) (Auto) 8.3 % Eosinophils (%) (Auto) 1.5 % Basophils (%) (Auto) 1.0 % Neutrophils # (Auto) 6.3 TH/MM3 Lymphocytes # (Auto) 1.8 TH/MM3 Monocytes # (Auto) 0.7 TH/MM3 Eosinophils # (Auto) 0.1 TH/MM3 Basophils # (Auto) 0.1 TH/MM3 CBC Comment DIFF FINAL Differential Comment Prothrombin Time 10.9 SEC Prothromb Time International 1.0 RATIO Ratio Activated Partial 28.2 SEC Thromboplast Time Sodium Level 135 MEQ/L Potassium Level 3.3 MEQ/L Chloride Level 94 MEQ/L Carbon Dioxide Level 28.7 MEQ/L Anion Gap 12 MEQ/L Blood Urea Nitrogen 16 MG/DL Creatinine 0.75 MG/DL Estimat Glomerular Filtration 114 ML/MIN Rate Random Glucose 247 MG/DL Calcium Level 10.1 MG/DL Total Bilirubin 0.5 MG/DL Aspartate Amino Transf 74 U/L (AST/SGOT) Alanine Aminotransferase 84 U/L (ALT/SGPT) Alkaline Phosphatase 105 U/L Total Protein 7.8 GM/DL Albumin 4.1 GM/DL Lipase 1219 U/L Urine Color YELLOW Urine Turbidity CLEAR Urine pH 7.5 Urine Specific [place] 1.016 Urine Protein 30 mg/dL Urine Glucose (UA) NEG mg/dL Urine Ketones NEG mg/dL Urine Occult Blood NEG Urine Nitrite NEG Urine Bilirubin NEG Urine Urobilinogen LESS THAN 2.0 MG/DL Urine Leukocyte Esterase NEG Urine RBC LESS THAN 1 /hpf Urine WBC 1 /hpf Microscopic Urinalysis Comment CULT NOT INDICATED MDM Medical Decision Making Medical Screen Exam Complete: Yes Emergency Medical Condition: Yes Differential Diagnosis Acute pancreatitis vs. alcohol gastritis vs. PUD Narrative Course 41yo M with alcohol abuse here with epigastric abdominal pain. Labs reviewed, no leukocytosis. Lipase is elevated at 1219. Glucose elevated at 247. K: 3.3 , placed with KCl 20mEq. UA negative. CT a/p showed clear evidence of chronic pancreatitis with numerous calcifications. No obvious acute inflammation. However, pt does have almost 3 times increase of lipase and is requiring multiple pain medications. Will admit for observation for pain control and pancreatitis. Discussed with Dr. Hughes and accepted to his service. Diagnosis Primary Impression: Acute alcoholic pancreatitis Qualified Code: K85.20 - Alcohol-induced acute pancreatitis, unspecified complication status Additional Impression: Intractable abdominal pain Admitting Information Admitting Physician Requests: Rani Alexander DO Jan 07, 2017 08:39
[2017-01-07 09:12] LABS: AUTOMATED NEUTROPHIL # 6.3 TH/MM3 (1.8-7.7); BASOPHIL # 0.1 TH/MM3 (0-0.2); EOSINOPHIL # 0.1 TH/MM3 (0-0.4); EOSINOPHIL % 1.5 % (0.0-4.0); HEMATOCRIT 47.6 % (39.0-51.0); HEMO FLAGS DIFF FINAL; LYMPH % 19.9 % (9.0-44.0); LYMPHOCYTE # 1.8 TH/MM3 (1.0-4.8); MEAN CORPUSCULAR HEMOGLOBIN 30.8 PG (27.0-34.0); MEAN CORPUSCULAR HGB CONC 33.1 % (32.0-36.0); MONO % 8.3 % (0.0-8.0); NEUT % 69.3 % (16.0-70.0); PLATELET COUNT 225 TH/MM3 (150-450); RED BLOOD COUNT 5.12 MIL/MM3 (4.50-5.90); RED CELL DISTRIBUTION WIDTH 14.8 % (11.6-17.2)
[2017-01-07 09:17] LABS: APTT (PATIENT) 28.2 SEC (24.3-30.1); PROTHROMBIN TIME - PATIENT 10.9 SEC (9.8-11.6)
[2017-01-07 09:20] LABS: BLOOD, URINE NEG (NEG); COMMENT (UR) CULT NOT INDICATED; CULTURE IF INDICATED CULT NOT INDICATED; GLUCOSE,URINE NEG (NEG); KETONE, URINE NEG (NEG); NITRITE,URINE NEG (NEG); PH, URINE 7.5 (5.0-8.5); URINE COLOR YELLOW (YELLW/STRAW)
[2017-01-07 09:25] LABS: ANION GAP 12 MEQ/L (5-15); AST (GOT) 74 U/L (15-37); BICARBONATE 28.7 MEQ/L (21.0-32.0); BLOOD UREA NITROGEN 16 MG/DL (7-18); CHLORIDE 94 MEQ/L (98-107); GLOMERULAR FILTRATION RATE 114 ML/MIN (>89); POTASSIUM 3.3 MEQ/L (3.5-5.1); SODIUM (NA) 135 MEQ/L (136-145)
[2017-01-07 09:29] LABS: ALKALINE PHOSPHATASE 105 U/L (45-117); ALT (GPT) 84 U/L (12-78); TOTAL BILIRUBIN ADULT 0.5 MG/DL (0.2-1.0)
[2017-01-07] MEDS ORDERED: IOHEXOL 350 MG/ML 10 ML VIAL (for RAD DIAG) IV ONE (09:58)
--- NOTE | 2017-01-07 10:01 | RADRPT ---
EXAM DATE/TIME: 01/07/2017 09:42 [place] COMPARISON: CT ABDOMEN & PELVIS W CONTRAST, November 19, 2016, 0:50. INDICATIONS : Epigastric pain since last night. IV CONTRAST: 98 cc Omnipaque 350 (iohexol) IV ORAL CONTRAST: No oral contrast ingested. RADIATION DOSE: 6.47 CTDIvol (mGy) MEDICAL HISTORY : Gastroesophageal reflux disease. Pancreatitis. SURGICAL HISTORY : None. ENCOUNTER: Initial ACUITY: 1 day PAIN SCALE: 8/10 LOCATION: epigastric abdomen TECHNIQUE: Volumetric scanning of the abdomen and pelvis was performed. Using automated exposure control and ad justment of the mA and/or kV according to patient size, radiation dose was kept as low as reasonably achievable to obtain optimal diagnostic quality images. DICOM format image data is available electro nically for review and comparison. FINDINGS: LOWER LUNGS: The visualized lower lungs are clear. LIVER: Homogeneous density with a solitary hyperdense lesion in the periphery consistent with a hemangioma. There is no dilation of the biliary tree. No calcified gallstones. SPLEEN: Normal size without lesion. PANCREAS: There some calcifications and mixed density within the head of the pancreas I suspect chronic pancrea titis . The pancreatic duct is dilated through the neck. The pancreatic tail has atrophied. KIDNEYS: Normal in size and shape. There is no mass, stone or hydronephrosis. ADRENAL GLANDS: Within normal limits. VASCULAR: There is no aortic aneurysm. BOWEL/MESENTERY: The stomach, small bowel, and colon demonstrate no acute abnormality. There is no free intraperitone al air or fluid. ABDOMINAL WALL: Within normal limits. RETROPERITONEUM: There is no lymphadenopathy. BLADDER: No wall thickening or mass. REPRODUCTIVE: Within normal limits. INGUINAL: There is no lymphadenopathy or hernia. MUSCULOSKELETAL: Within normal limits for patient age. CONCLUSION: Clear evidence of chronic pancreatitis with numerous calcifications and markedly atrophied tail. No o bvious acute inflammation is identified. Rest of study is unremarkable. Franco Hahn MD on January 07, 2017 at 9:56 Board Certified Radiologist. This report was verified electronically.
[2017-01-07] MEDS ORDERED: LACTULOSE SYRUP 20 GM/30 ML CUP PO PRN (10:30)
[2017-01-07] MEDS ORDERED: MAGNESIUM HYDROXIDE SUSP 30 ML CUP PO PRN (10:30)
[2017-01-07] MEDS ORDERED: chlordiazePOXIDE 25 MG CAP PO PRN (10:30)
[2017-01-07] MEDS ORDERED: POTASSIUM CHLOR 20 MEQ PREMIX 100 ML IV ONE (10:30)
[2017-01-07] MEDS ORDERED: SENNOSIDES 8.6 MG TAB PO PRN (10:30)
[2017-01-07] MEDS ORDERED: THIAMINE INJ 100 MG in SODIUM CHLORIDE 0.9% INJ 100 ML IV ONE (10:30)
[2017-01-07] MEDS ORDERED: NALOXONE HCL 0.4 MG/ML AMP IV PRN (10:30)
[2017-01-07] MEDS: THIAMINE INJ 100 MG in SODIUM CHLORIDE 0.9% INJ 100 ML IV SCH (10:30)
[2017-01-07] MEDS ORDERED: BISACODYL 10 MG SUPP RECTAL PRN (10:30)
[2017-01-07] MEDS ORDERED: ONDANSETRON HCL 4 MG/2 ML VIAL IVP PRN (10:30)
[2017-01-07] MEDS: HEPARIN SODIUM - SQ 10,000 UNITS/ML VIAL SQ SCH ×2 (11:27→22:32)
[2017-01-07] MEDS ORDERED: MORPHINE SULFATE 8 MG/ML INJ IV PUSH ONE (11:30)
[2017-01-07] MEDS ORDERED: METFORMIN HOLD POST IV CONTRAST SCH (11:30)
[2017-01-07] MEDS: D5-1/2 NS + KCL 20 MEQ INJ 1,000 ML IV SCH ×3 (13:34→22:32)
--- NOTE | 2017-01-07 15:22 | MH ---
cc: KOLBY ORR MD DATE OF ADMISSION: 01/07/2017 CHIEF COMPLAINT: Epigastric pain. TRAVEL IN THE LAST THIRTY DAYS: None. HISTORY OF PRESENT ILLNESS: This is a pleasant 41-year-old white male who has had four hospitalizations in three years for the same type of pain. He describes an epigastric pain that radiates to both sides. The pain on the right side is greater than the left. He has had a previous diagnosis of alcoholic pancreatitis and understands the concept and symptoms. He does note some nausea and vomiting x3 this past p.m. but none today. He denies taking any food in today but did eat a cheeseburger yesterday when his brother was in town. The patient notes that he has been a daily drinker for quite some time. He has had several instances where he has stopped and gone to [facility] He does note that he has been drinking daily for the past two weeks but before that period of time it had been several months that he had had no alcohol. The patient is alert, oriented, a fairly good historian. He does have a GI doctor that he sees for followup. He is a known diabetic and states that he does use regular insulin for coverage, which is usually required once or twice a week. The patient denies any headaches. No chest pain. No fever. Until yesterday, he had been in his usual state of health with no acute issues. PAST MEDICAL HISTORY: According to the patient and the record: 1. Asthma. 2. Tobacco abuse. 3. Hyperlipidemia. 4. Chest pain. 5. Diabetes mellitus type 2. The patient does take two forms of p.o. hypoglycemics. 6. Pancreatitis (four episodes in three years). 7. Hypertension. 8. Right leg and toes broken. PAST SURGICAL HISTORY: 1. Tonsillectomy. ALLERGIES: NO KNOWN ALLERGIES. MEDICATIONS: Reported medications: 1. Novolin R insulin sliding scale. 2. Magnesium oxide. 3. Vitamin B12. 4. Vitamin D. 5. Metoprolol. 6. Metformin. 7. Potassium chloride. 8. Multivitamins. 9. Coenzyme Q 10. SOCIAL HISTORY: The patient is currently , lives with his parents. He does have daily tobacco use of approximately a half a pack a day. Daily alcohol use for two weeks and none in the previous months before but has been a longstanding chronic alcohol drinker of beer and vodka this past night. NO illicit drugs. REVIEW OF SYSTEMS: A twelve-point review of systems was obtained and positives noted in the history of present illness, which include epigastric pain (intense). He describes a 10/10 this past p.m. with radiation to both sides, right upper quadrant worse than the left upper quadrant. Positive for beer and vodka last night. No food consumption today. A cheeseburger eaten yesterday. Nausea and vomiting x3 this past p.m. No fever, no headaches, no chest pain, no shortness of breath. Other systems negative or unremarkable. Note - bowel movement normal yesterday. PHYSICAL EXAMINATION: VITAL SIGNS: Temperature is 98.3, pulse now 72, respirations 19, blood pressure 117/79. On admission, 131/89 and 143/95, now normalized. Oxygen saturation 95 on room air. GENERAL: Slim white male looks to be his stated age resting in the bed, alert, oriented, cooperative. SKIN: Mucous membranes are pink, warm and dry. HEAD, EYES, EARS, NOSE, THROAT: Normocephalic and atraumatic. Pupils equal, round and reactive to light and accommodation. The mucous membranes are moist. NECK: The neck is supple. HEART: S1-S2. Regular rate and rhythm. No edema in his lower extremities. Pulses intact. LUNGS: Rhonchi and some diminished sounds throughout his anterior and posterior lobes. He has no rales. Mild expiratory wheeze noted. ABDOMEN: Abdomen is flat, soft. Tender in the epigastric area, right greater than left. He has active bowel sounds in all four quadrants. MUSCULOSKELETAL: Moves all extremities with purpose. No edema. EXTREMITIES: Warm. Pulses are intact. NEUROLOGIC: He is alert and oriented and a good historian. Tongue is midline. Speech is clear. PSYCHIATRIC: Mood and affect are appropriate. Mild anxiety over current pain and condition. DIAGNOSTIC DATA: White blood cell count 9, RBCs 5.12, hemoglobin 15.8, hematocrit 47.6, platelet count 255,000. Abnormal monocyte auto count 8.3 Neutrophil count 69.3. PT and INR 1. Chemistries: Sodium 135, potassium 3.3, chloride 94, carbon dioxide 28.7, anion gap 12, BUN 16, creatinine 0.75, random glucose 247. AST 74, ALT 84, lipase 1219. RADIOLOGICAL STUDIES: Abdomen and pelvis CT: Chronic pancreatitis with numerous calcifications and markedly atrophied tail. No obvious acute inflammation identified. The rest of the study is unremarkable. ASSESSMENT: 1. Acute alcoholic pancreatitis. 2. Intractable abdominal pain. 3. Hypokalemia. 4. Diabetes type 2. 5. History of hyperlipidemia. 6. Hypertension. 7. Noncompliance. PLAN: Our plan is: 1. Admit inpatient status. 2. Will maintain the patient NPO for now and rest his gut. 3. Pain medications, hydromorphone 0.5 IV q. 4. 4. He also in the emergency room was given 8 IV of morphine x1. 5. Vital signs are q.4 and as needed. 6. The patient can be out of bed with assistance. 7. IV fluids D5 half with 20 potassium chloride to assist with hydration and treat his low potassium level. 8. He can have Restoril PRN for sleep. 9. DVT prophylaxis with heparin subcutaneous. 10. Bowel regimen with stool softeners and laxatives as warranted. 11. The patient will receive IV thiamine daily. 12. Will monitor his Accu-Cheks a.c. and at bedtime with sliding scale. 13. He did receive one dose of potassium 20 milliequivalents once in the emergency room. 14. Constant ECG monitoring. 15. IV access. 16. Will monitor his labs in the morning. The patient is full code, full aggressive care. We will continue to follow. Dictated by ILEANA Castano. MD PRISCILLA Rodriguez/CLYDE /2:36 PM /3:04 PM seen, examined by myself, Dr Orr, today 01/07/17 and the emergency department Discussed with patient, he needs to stop alcohol completely See orders for further plans Discussed with mid level provider The exam, history, and the medical decision-making described in the above note were completed with the assistance of the mid-level provider. I reviewed the findings presented. I attest that I had a [id number] encounter with the patient on the same day, and personally performed and documented my assessment and findings in the medical record. MIR
[2017-01-07] MEDS: HYDROmorphone HCL PF 1 MG/ML VIAL IV PUSH PRN ×2 (15:37→19:59)
[2017-01-07] MEDS ORDERED: LORazepam 2 MG TAB PO PRN (16:15)
[2017-01-07] MEDS ORDERED: LORazepam 1 MG TAB PO PRN (16:15)
[2017-01-07] MEDS ORDERED: LORazepam 2 MG/ML VIAL IV PUSH PRN ×4 (16:15)
[2017-01-07] MEDS ORDERED: FLUMAZENIL 0.5 MG/5 ML VIAL IV PUSH PRN (16:15)
[2017-01-07] MEDS: DOCUSATE SODIUM 50 MG/SENNA 8.6 MG TAB PO SCH (19:59)
[2017-01-07] MEDS: SODIUM CHLORIDE 0.9% FLUSH 10 ML FLUSH IV FLUSH SCH (20:33)
[2017-01-08] MEDS: HYDROmorphone HCL PF 1 MG/ML VIAL IV PUSH PRN ×6 (00:04→20:05)
[2017-01-08] MEDS: TEMAZEPAM 15 MG CAP PO PRN (00:07)
[2017-01-08 00:50] VITALS: BP 108/71; PULSE 62; RESP 17; TEMP 97.1; O2SAT 94
[2017-01-08 04:40] VITALS: BP 104/70; PULSE 58; RESP 17; TEMP 96.7; O2SAT 92
[2017-01-08] MEDS: D5-1/2 NS + KCL 20 MEQ INJ 1,000 ML IV SCH (07:30)
[2017-01-08 07:50] LABS: AUTOMATED NEUTROPHIL # 2.4 TH/MM3 (1.8-7.7); BASOPHIL % 0.8 % (0.0-2.0); EOSINOPHIL # 0.3 TH/MM3 (0-0.4); EOSINOPHIL % 4.6 % (0.0-4.0); HEMATOCRIT 41.9 % (39.0-51.0); HEMO FLAGS DIFF FINAL; LYMPH % 44.1 % (9.0-44.0); LYMPHOCYTE # 2.4 TH/MM3 (1.0-4.8); MEAN CELL VOLUME 93.2 FL (80.0-100.0); MEAN CORPUSCULAR HEMOGLOBIN 31.7 PG (27.0-34.0); MONO % 6.7 % (0.0-8.0); NEUT % 43.8 % (16.0-70.0); PLATELET COUNT 190 TH/MM3 (150-450); RED CELL DISTRIBUTION WIDTH 14.4 % (11.6-17.2); WHITE BLOOD COUNT 5.6 TH/MM3 (4.0-11.0)
[2017-01-08 08:00] VITALS: BP 110/76; PULSE 53; RESP 16; TEMP 95.8; O2SAT 96
[2017-01-08 08:31] LABS: BICARBONATE 29.4 MEQ/L (21.0-32.0); INDIRECT BILIRUBIN 0.5 MG/DL (0.0-0.8); POTASSIUM 3.4 MEQ/L (3.5-5.1); TOTAL BILIRUBIN ADULT 0.6 MG/DL (0.2-1.0)
[2017-01-08] MEDS: SODIUM CHLORIDE 0.9% FLUSH 10 ML FLUSH IV FLUSH SCH ×2 (08:53→20:05)
[2017-01-08] MEDS: DOCUSATE SODIUM 50 MG/SENNA 8.6 MG TAB PO SCH ×2 (08:54→20:04)
[2017-01-08] MEDS: THIAMINE INJ 100 MG in SODIUM CHLORIDE 0.9% INJ 100 ML IV SCH (08:54)
[2017-01-08] MEDS: HEPARIN SODIUM - SQ 10,000 UNITS/ML VIAL SQ SCH (11:32)
[2017-01-08 12:00] VITALS: BP 122/79; PULSE 59; RESP 16; TEMP 96.2; O2SAT 93
--- NOTE | 2017-01-08 12:14 | HHI.PR ---
Subjective Subjective Remarks resting in bed awake, no facial griimace alert X 4 mild restless at times Review of Systems Constitutional Constitutional Remarks 10 point ROS done Psychiatric Psychiatric: Normal Mood Vitals/Results Intake & Output 01/07/17 01/07/17 01/08/17 15:00 23:00 07:00 Intake Total 1100 ml 0 ml 0 ml Output Total 400 ml Balance 700 ml 0 ml 0 ml Intake Oral 0 ml 0 ml IV Total 1100 ml Output Urine Total 400 ml # Voids 1 2 # Bowel Movements 0 0 Vital Signs Vital Signs Date Time Temp Pulse Resp B/P Pulse Ox O2 Delivery O2 Flow Rate FiO2 01/08/17 08:00 95.8 53 16 110/76 96 01/08/17 04:40 96.7 58 17 104/70 92 01/08/17 00:50 97.1 62 17 108/71 94 01/07/17 21:20 97.0 65 17 121/80 92 01/07/17 19:21 97.5 69 16 109/71 97 01/07/17 16:37 18 01/07/17 14:54 97.8 66 18 107/69 93 01/07/17 13:45 72 19 117/79 95 CBC/BMP: 01/08/17 0621 01/08/17 0621 Lab Results Laboratory Tests Test 01/08/17 06:21 White Blood Count 5.6 TH/MM3 Red Blood Count 4.50 MIL/MM3 Hemoglobin 14.3 GM/DL Hematocrit 41.9 % Mean Corpuscular Volume 93.2 FL Mean Corpuscular Hemoglobin 31.7 PG Mean Corpuscular Hemoglobin 34.0 % Concent Red Cell Distribution Width 14.4 % Platelet Count 190 TH/MM3 Mean Platelet Volume 9.4 FL Neutrophils (%) (Auto) 43.8 % Lymphocytes (%) (Auto) 44.1 % Monocytes (%) (Auto) 6.7 % Eosinophils (%) (Auto) 4.6 % Basophils (%) (Auto) 0.8 % Neutrophils # (Auto) 2.4 TH/MM3 Lymphocytes # (Auto) 2.4 TH/MM3 Monocytes # (Auto) 0.4 TH/MM3 Eosinophils # (Auto) 0.3 TH/MM3 Basophils # (Auto) 0.0 TH/MM3 CBC Comment DIFF FINAL Differential Comment Sodium Level 137 MEQ/L Potassium Level 3.4 MEQ/L Chloride Level 100 MEQ/L Carbon Dioxide Level 29.4 MEQ/L Anion Gap 8 MEQ/L Blood Urea Nitrogen 14 MG/DL Creatinine 0.66 MG/DL Estimat Glomerular Filtration 132 ML/MIN Rate Random Glucose 187 MG/DL Calcium Level 8.1 MG/DL Total Bilirubin 0.6 MG/DL Direct Bilirubin 0.1 MG/DL Indirect Bilirubin 0.5 MG/DL Aspartate Amino Transf 50 U/L (AST/SGOT) Alanine Aminotransferase 68 U/L (ALT/SGPT) Alkaline Phosphatase 85 U/L Total Protein 6.5 GM/DL Albumin 3.3 GM/DL Lipase 236 U/L Current Medications Administered Medications Medications (Trade) Dose Ordered Sig/Ralf Route PRN Reason Start Time Stop Time Status Last Admin Dose Admin Potassium Chloride/Dextrose/ Sod Cl (D5-1/2 NS + KCl 20 Meq Inj) 1,000 ml @ 150 mls/hr Q6H40M IV 01/07/17 10:27 01/08/17 07:30 Temazepam (Restoril) 15 mg HS PRN PO INSOMNIA 01/07/17 10:30 01/08/17 00:07 Heparin Sodium (Porcine) 5000 units 5,000 units Q12H SQ 01/07/17 11:00 01/08/17 11:32 Thiamine HCl/ Sodium Chloride (Thiamine Inj/NS Inj) 101 ml @ 101 mls/hr DAILY IV 01/07/17 10:30 01/08/17 08:54 Chlordiazepoxide (Librium) 5 mg QID PO 01/07/17 13:00 01/08/17 11:32 Miscellaneous Information HOLD METFORMIN FOR... Q24H .XX 01/07/17 11:30 01/09/17 11:29 01/07/17 13:35 Hydromorphone HCl (Dilaudid Pf Inj) 0.5 mg Q4H PRN IV PUSH severe pain 01/07/17 13:15 01/08/17 11:32 Lorazepam (Ativan) 1 mg Q4H PRN PO CIWA 8 - 10 01/07/17 16:15 01/07/17 17:55 Physical Exam General General Appearance: Well Developed, No Acute Distress Appearance Remarks mild anxious, but not restless now, CIWA Eyes Eye Exam: Pupils Reactive Ears & Nose Ears & Nose Exam: Nasal Mucosa [place] Throat Throat Exam: Oral Mucosa [place] & Moist Neck Neck Exam: Neck Supple Pulmonary Resp Exam: Rhonchi, Diminished Breath Sounds Resp Remarks smoker Cardiology CV Exam: Regular Gastrointestinal/Abdomen GI Exam: Soft, Bowel Sounds Present (soft) GI Remarks RUQ discomfort , but much improved Musculoskeletal MS Exam: Joints Intact Integumentary Skin Exam: Warm, Dry, Intact Extremeties Extremities Exam: No Edema Neurologic Neuro Exam: Alert, Awake, Oriented, Speech Clear, Moving All Extremities Assessment/Plan Assessment/Plan ASSESSMENT: 1. Acute alcoholic pancreatitis. Right upper quadrant abdominal pain much improved but still has some generalized soreness to light palpation. CIWA protocol in place, a responded well to medical therapy, may be up out of bed and in chair today and ambulatory in room. Patient now on clear liquids well monitor for his toleration, if tolerates may increase diet. 2. Intractable abdominal pain., Controlled with meds, and overall improvement of #1 3. Hypokalemia, Increased from 3.3-3.4, will add one by mouth dose today of 25 mEq, maintain IV fluids for now until patient is taking by mouth fluids well 4. Diabetes type 2., Accu-Cheks before meals and at bedtime with sliding scale , blood sugar this a.m. 187, continue current sliding scale and monitor, 5. History of hyperlipidemia., Medical management 6. Hypertension., Controlled, apical management 7. Noncompliance., Spoke at length with patient about quality of life and his wishes for the rest of his life. He shows a genuine interest to go into a rehabilitation for his EtOH again. Also discussed at length education on not smoking, currently patient shows some motivation, some generalized tips and encouragement was given during my exam. vital signs reviewed, normal trends, BP 104/70 labs reviewed, BS 187, diabetic, mild improvement, lipase level normalized today to 36, AST decreased to 50 improving, ALT normalized, potassium 3.4 Check labs in the morning Brenda Abreu Jan 08, 2017 12:14
[2017-01-08] MEDS ORDERED: POTASSIUM CHLORIDE 25 MEQ EFFERVESCENT TAB PO ONE ×2 (13:00)
[2017-01-08 16:00] VITALS: BP 129/83; PULSE 60; RESP 16; TEMP 96.6; O2SAT 94
[2017-01-08 20:25] VITALS: BP 123/78; PULSE 66; RESP 17; TEMP 97; O2SAT 95
[2017-01-09] VITALS (7 sets, daily range): BP systolic 105–121; BP diastolic 58–79; PULSE 60–74; RESP 16–18; TEMP 96.1–97.2; O2SAT 93–96
[2017-01-09] MEDS: HEPARIN SODIUM - SQ 10,000 UNITS/ML VIAL SQ SCH ×3 (00:14→22:01)
[2017-01-09] MEDS: HYDROmorphone HCL PF 1 MG/ML VIAL IV PUSH PRN ×5 (00:14→16:31)
[2017-01-09] MEDS: TEMAZEPAM 15 MG CAP PO PRN (00:19)
[2017-01-09] MEDS: D5-1/2 NS + KCL 20 MEQ INJ 1,000 ML IV SCH (00:19)
[2017-01-09 06:49] LABS: BICARBONATE 29.6 MEQ/L (21.0-32.0); POTASSIUM 3.6 MEQ/L (3.5-5.1)
[2017-01-09] MEDS: SODIUM CHLORIDE 0.9% FLUSH 10 ML FLUSH IV FLUSH SCH ×2 (09:00→22:01)
[2017-01-09] MEDS: DOCUSATE SODIUM 50 MG/SENNA 8.6 MG TAB PO SCH ×2 (09:00→22:01)
[2017-01-09] MEDS: THIAMINE INJ 100 MG in SODIUM CHLORIDE 0.9% INJ 100 ML IV SCH (09:31)
--- NOTE | 2017-01-09 13:47 | HHI.PR ---
Subjective Subjective Remarks resting in bed alert, non restless for now epigastric pain continues exp. wheezing noted, No nausea or emesis eating solid food well (Brneda Abreu) Review of Systems Constitutional Constitutional Remarks 10 point ROS done (Brenda Abreu) Pulmonary Respiratory: Wheezing (active expiratory anteriorly and posteriorly) (Brenda Abreu) GI/Abdomen GI/Abdomen Remarks Epigastric pain left greater than right (Brenda Abreu) Psychiatric Psychiatric: Normal Mood (Brenda Abreu) Vitals/Results Intake & Output 01/08/17 01/08/17 01/09/17 15:00 23:00 07:00 Intake Total 600 ml 541 ml 653 ml Balance 600 ml 541 ml 653 ml Intake Oral 600 ml 360 ml 240 ml IV Total 181 ml 413 ml # Voids 3 2 5 # Bowel Movements 1 0 0 Vital Signs Vital Signs Date Time Temp Pulse Resp B/P Pulse Ox O2 Delivery O2 Flow Rate FiO2 01/09/17 08:00 96.7 69 16 121/75 96 01/09/17 04:35 97.2 63 17 120/74 96 01/09/17 00:20 96.8 64 17 118/75 95 01/08/17 20:25 97.0 66 17 123/78 95 01/08/17 16:00 96.6 60 16 129/83 94 (Brenda Abreu) CBC/BMP: 01/08/17 0621 01/09/17 0530 Lab Results Laboratory Tests Test 01/09/17 05:30 Sodium Level 137 MEQ/L Potassium Level 3.6 MEQ/L Chloride Level 101 MEQ/L Carbon Dioxide Level 29.6 MEQ/L Anion Gap 6 MEQ/L Blood Urea Nitrogen 10 MG/DL Creatinine 0.69 MG/DL Estimat Glomerular Filtration 126 ML/MIN Rate Random Glucose 163 MG/DL Calcium Level 8.1 MG/DL Current Medications Administered Medications Medications (Trade) Dose Ordered Sig/Ralf Route PRN Reason Start Time Stop Time Status Last Admin Dose Admin Potassium Chloride/Dextrose/ Sod Cl (D5-1/2 NS + KCl 20 Meq Inj) 1,000 ml @ 50 mls/hr Q20H IV 01/07/17 10:27 01/08/17 07:30 Temazepam (Restoril) 15 mg HS PRN PO INSOMNIA 01/07/17 10:30 01/09/17 00:19 Heparin Sodium (Porcine) (Heparin Inj) 5,000 units Q12H SQ 01/07/17 11:00 01/09/17 11:14 Senna/Docusate Sodium 1 tab 1 tab BID PO 01/07/17 21:00 01/08/17 20:04 Thiamine HCl/ Sodium Chloride (Thiamine Inj/NS Inj) 101 ml @ 101 mls/hr DAILY IV 01/07/17 10:30 01/09/17 09:31 Chlordiazepoxide (Librium) 5 mg QID PO 01/07/17 13:00 01/09/17 12:36 Lorazepam (Ativan) 1 mg Q4H PRN PO CIWA 8 - 10 01/07/17 16:15 01/07/17 17:55 Hydromorphone HCl (Dilaudid Pf Inj) 0.2 mg Q4H PRN IV PUSH severe pain 01/08/17 21:15 01/09/17 12:36 (Brenda Abreu) Physical Exam General General Appearance: Well Developed, No Acute Distress Appearance Remarks mild anxious, but not restless now, CIWA (Brenda Abreu) Eyes Eye Exam: Pupils Reactive (Brenda Abreu) Ears & Nose Ears & Nose Exam: Nasal Mucosa [place] (Brenda Abreu) Throat Throat Exam: Oral Mucosa [place] & Moist (Brenda Abreu) Neck Neck Exam: Neck Supple (Brenda Abreu) Pulmonary Resp Exam: Rhonchi, Diminished Breath Sounds Resp Remarks smoker, expiratory wheezing noted anteriorly and posteriorly (Brenda Abreu) Cardiology CV Exam: Regular (Brenda Abreu) Gastrointestinal/Abdomen GI Exam: Soft, Bowel Sounds Present (soft) GI Remarks RUQ discomfort , but much improved (Brenda Abreu) Musculoskeletal MS Exam: Joints Intact (Brenda Abreu) Integumentary Skin Exam: Warm, Dry, Intact (Brenda Abreu) Extremeties Extremities Exam: No Edema (Brenda Abreu) Neurologic Neuro Exam: Alert, Awake, Oriented, Speech Clear, Moving All Extremities ( Brenda Abreu) Assessment/Plan Assessment/Plan ASSESSMENT: 1. Acute alcoholic pancreatitis. Right upper quadrant and epigastric abdominal pain still persist CIWA protocol in place, a responded well to medical therapy, 2. Intractable abdominal pain., Controlled with meds, and overall improvement of #1 3. Hypokalemia, Resolved 4. Diabetes type 2., Accu-Cheks before meals and at bedtime with sliding scale , continue current sliding scale and monitor, 5. History of hyperlipidemia., Medical management 6. Hypertension., Controlled, apical management 7. Tobacco abuse, probable COPD, expiratory wheezing noted anteriorly and posteriorly. Taking by mouth fluids and food well without nausea and vomiting. IV fluids DC'd, dual nebs ordered every 4 [id number] and will reevaluate tomorrow patient's wheezing 7. Noncompliance., Spoke at length yesterday with patient about quality of life and his wishes for the rest of his life. Patient is still planning on a treatment regimen when he gets out of the hospital vital signs reviewed, normal trends, respiratory rate controlled, expiratory wheezing noted anterior and posteriorly labs reviewed, BS 187, diabetic, mild improvement, lipase level normalized today to 36, AST decreased to 50 improving, ALT normalized, potassium 3.4 Check labs in the morning (Brenda Abreu) Assessment/Plan seen, examined by myself, Dr Hughes, today Discussed with patient Discussed with mid level provider Discharge patient home tomorrow The exam, history, and the medical decision-making described in the above note were completed with the assistance of the mid-level provider. I reviewed the findings presented. I attest that I had a [id number] encounter with the patient on the same day, and personally performed and documented my assessment and findings in the medical record. (Hugo Hughes MD) Brenda Abreu Jan 09, 2017 13:47 Hugo Hughes MD Jan 09, 2017 18:47
[2017-01-09] MEDS: MORPHINE SULFATE 15 MG TAB PO PRN (22:00)
[2017-01-10 03:09] VITALS: BP_SYST 107; BP_SYST 108; BP_DIAS 56; BP_DIAS 63; PULSE 63; PULSE 85; RESP 18; RESP 19; TEMP 96.7; O2SAT 93; O2SAT 95
[2017-01-10] MEDS: RESP: ALBUTEROL 2.5 MG/IPRATROPIUM 0.5 MG NEB (SCH) NEB ×6 (03:49→20:32)
[2017-01-10] MEDS: MORPHINE SULFATE 15 MG TAB PO PRN ×6 (04:43→21:45)
[2017-01-10 08:00] VITALS: BP 110/66; PULSE 56; RESP 16; TEMP 96.2; O2SAT 96
[2017-01-10 08:49] LABS: ANION GAP 8 MEQ/L (5-15); AST (GOT) 42 U/L (15-37); BICARBONATE 28.4 MEQ/L (21.0-32.0); BLOOD UREA NITROGEN 11 MG/DL (7-18); CHLORIDE 102 MEQ/L (98-107); GLOMERULAR FILTRATION RATE 118 ML/MIN (>89); POTASSIUM 3.5 MEQ/L (3.5-5.1); SODIUM (NA) 138 MEQ/L (136-145)
[2017-01-10 08:51] LABS: ALT (GPT) 59 U/L (12-78)
[2017-01-10 08:53] LABS: ALKALINE PHOSPHATASE 101 U/L (45-117); TOTAL BILIRUBIN ADULT 0.5 MG/DL (0.2-1.0)
[2017-01-10] MEDS: DOCUSATE SODIUM 50 MG/SENNA 8.6 MG TAB PO SCH ×2 (09:45→21:40)
[2017-01-10] MEDS: SODIUM CHLORIDE 0.9% FLUSH 10 ML FLUSH IV FLUSH SCH ×2 (09:45→21:00)
[2017-01-10] MEDS: HEPARIN SODIUM - SQ 10,000 UNITS/ML VIAL SQ SCH ×2 (10:02→23:15)
[2017-01-10 11:00] VITALS: BP 114/67; PULSE 71; RESP 16; TEMP 96.7; O2SAT 94
--- NOTE | 2017-01-10 11:48 | HHI.PR ---
Subjective Subjective Remarks resting in bed alert, non restless for now epigastric pain continues, states worsened after IV meds were changed to by mouth eating solid food , no nausea or vomiting Review of Systems Constitutional Constitutional Remarks 10 point ROS done Pulmonary Respiratory: Wheezing (resolved) GI/Abdomen GI/Abdomen Remarks Epigastric pain left greater than right, radiates to both sides Psychiatric Psychiatric: Normal Mood Vitals/Results Intake & Output 01/09/17 01/09/17 01/10/17 15:00 23:00 07:00 Intake Total 924 ml 480 ml 240 ml Balance 924 ml 480 ml 240 ml Intake Oral 600 ml 480 ml 240 ml IV Total 324 ml # Voids 6 3 2 # Bowel Movements 0 1 0 Vital Signs Vital Signs Date Time Temp Pulse Resp B/P Pulse Ox O2 Delivery O2 Flow Rate FiO2 01/10/17 11:00 96.7 71 16 114/67 94 01/10/17 08:00 96.2 56 16 110/66 96 01/10/17 03:09 96.7 63 18 107/63 93 01/09/17 23:48 96.5 60 18 108/58 94 01/09/17 19:19 96.7 74 18 105/62 93 01/09/17 16:00 96.7 71 16 119/79 96 01/09/17 12:00 96.1 64 16 110/70 94 CBC/BMP: 01/08/17 0621 01/10/17 0659 Lab Results Laboratory Tests Test 01/10/17 06:59 Sodium Level 138 MEQ/L Potassium Level 3.5 MEQ/L Chloride Level 102 MEQ/L Carbon Dioxide Level 28.4 MEQ/L Anion Gap 8 MEQ/L Blood Urea Nitrogen 11 MG/DL Creatinine 0.73 MG/DL Estimat Glomerular Filtration 118 ML/MIN Rate Random Glucose 203 MG/DL Calcium Level 8.5 MG/DL Total Bilirubin 0.5 MG/DL Aspartate Amino Transf 42 U/L (AST/SGOT) Alanine Aminotransferase 59 U/L (ALT/SGPT) Alkaline Phosphatase 101 U/L Total Protein 6.9 GM/DL Albumin 3.5 GM/DL Current Medications Administered Medications Medications (Trade) Dose Ordered Sig/Ralf Route PRN Reason Start Time Stop Time Status Last Admin Dose Admin Sodium Chloride (NS Flush) 2 ml UNSCH PRN IV FLUSH FLUSH AFTER USING IV ACCESS 01/07/17 08:30 7/11/17 16:32 Sodium Chloride (NS Flush) 2 ml BID IV FLUSH 01/07/17 21:00 01/10/17 09:45 Temazepam (Restoril) 15 mg HS PRN PO INSOMNIA 01/07/17 10:30 01/09/17 00:19 Heparin Sodium (Porcine) (Heparin Inj) 5,000 units Q12H SQ 01/07/17 11:00 01/10/17 10:02 Senna/Docusate Sodium (Naomi-Colace) 1 tab BID PO 01/07/17 21:00 01/10/17 09:45 Chlordiazepoxide (Librium) 5 mg QID PO 01/07/17 13:00 01/10/17 09:45 Lorazepam (Ativan) 1 mg Q4H PRN PO CIWA 8 - 10 01/07/17 16:15 01/07/17 17:55 Morphine Sulfate (Msir) 15 mg Q3H PRN PO pain 4-10 01/09/17 18:45 01/10/17 09:46 Physical Exam General General Appearance: Well Developed, No Acute Distress Appearance Remarks mild anxious, but not restless now, [facility] Eyes Eye Exam: Pupils Reactive Ears & Nose Ears & Nose Exam: Nasal Mucosa [place] Throat Throat Exam: Oral Mucosa [place] & Moist Neck Neck Exam: Neck Supple Pulmonary Resp Exam: Clear Bilaterally, Rhonchi (none), Diminished Breath Sounds ( resolved) Resp Remarks smoker, expiratory wheezing noted anteriorly and posteriorly Cardiology CV Exam: Regular Gastrointestinal/Abdomen GI Exam: Soft, Bowel Sounds Present (soft) GI Remarks RUQ discomfort , but much improved Musculoskeletal MS Exam: Joints Intact Integumentary Skin Exam: Warm, Dry, Intact Extremeties Extremities Exam: No Edema Neurologic Neuro Exam: Alert, Awake, Oriented, Speech Clear, Moving All Extremities Assessment/Plan Assessment/Plan ASSESSMENT: 1. Acute alcoholic pancreatitis. Right upper quadrant and epigastric abdominal pain still persist [facility] protocol in place, a responded well to medical therapy, recheck lipase level today to make sure there is no acute changes 2. Intractable abdominal pain., States he is still having some epigastric pain radiating to both sides, which is the same pain he had on admission, now on by mouth meds, states meds are not as effective, added Protonix twice a day 3. Hypokalemia, Resolved 4. Diabetes type 2., Accu-Cheks before meals and at bedtime with sliding scale , continue current sliding scale and monitor, added back his home dose metformin today 5. History of hyperlipidemia., Medical management 6. HTN, controlled medical management 7. Tobacco abuse, probable COPD, expiratory wheezing resolved after 2 DuoNeb treatments, encourage patient to take as needed, 7. Noncompliance., Patient is still planning on a treatment regimen when he gets out of the hospital Asking about Chantix for his nonsmoking, suggested that he follow-up with his PCP after discharge vital signs reviewed, normal trends, respiratory rate controlled, expiratory wheezing noted anterior and posteriorly labs reviewed, BS 203, diabetic, restart home dose metformin today, A1c pending , lipase level recheck since patient continues to have epigastric pain Hyperglycemia, pm, 10 units Novolog IV for BS >500, added sliding scale for accuchecks. accuckecks also prn for uncontrolled BS Brenda Abreu Jan 10, 2017 11:48
[2017-01-10] MEDS: metFORMIN HCL 500 MG TAB PO SCH ×2 (12:23→15:44)
[2017-01-10] MEDS: PANTOPRAZOLE SOD 40 MG DELAYED RELEASE TAB PO SCH ×2 (12:23→21:40)
[2017-01-10 16:00] VITALS: BP 109/62; PULSE 71; RESP 16; TEMP 95.8; O2SAT 96
[2017-01-10] MEDS ORDERED: INSULIN ASPART 1,000 UNITS/10 ML VIAL SQ ONE ×2 (16:45→17:00)
[2017-01-10] MEDS ORDERED: DEXTROSE 50% IN WATER 50 ML VIAL(D50) IV PRN (17:00)
[2017-01-10] MEDS ORDERED: GLUCAGON 1 MG/ML VIAL OTHER PRN (17:00)
[2017-01-10 17:15] LABS: HEMOGLOBIN A1a 1.1 %; HEMOGLOBIN A1b 2.2 %; HEMOGLOBIN Ao 80.6 %; HEMOGLOBIN LA1C 2.7 %; HEMOGLOBIN P3 4.5 %
[2017-01-10] MEDS ORDERED: traMADol HCL 50 MG TAB PO PRN (18:45)
[2017-01-10 20:00] VITALS: BP 114/69; PULSE 101; RESP 18; TEMP 96.7; O2SAT 94
[2017-01-10] MEDS: INSULIN ASPART SUPPLEMENTAL SCALE SQ SCH (21:00)
[2017-01-10] MEDS: TEMAZEPAM 15 MG CAP PO PRN (21:45)
[2017-01-10 23:10] VITALS: BP 100/65; PULSE 96; RESP 18; TEMP 97.4; O2SAT 94
[2017-01-11] MEDS: MORPHINE SULFATE 15 MG TAB PO PRN ×4 (01:10→11:23)
[2017-01-11] MEDS: INSULIN ASPART SUPPLEMENTAL SCALE SQ SCH ×3 (06:48→16:00)
[2017-01-11 08:00] VITALS: BP 103/71; PULSE 86; RESP 18; TEMP 97.9; O2SAT 94
[2017-01-11] MEDS: RESP: ALBUTEROL 2.5 MG/IPRATROPIUM 0.5 MG NEB (SCH) NEB ×3 (08:16→15:15)
[2017-01-11] MEDS: DOCUSATE SODIUM 50 MG/SENNA 8.6 MG TAB PO SCH (08:48)
[2017-01-11] MEDS: PANTOPRAZOLE SOD 40 MG DELAYED RELEASE TAB PO SCH (08:48)
[2017-01-11] MEDS: SODIUM CHLORIDE 0.9% FLUSH 10 ML FLUSH IV FLUSH SCH (08:49)
[2017-01-11] MEDS: metFORMIN HCL 500 MG TAB PO SCH (08:49)
[2017-01-11] MEDS: HEPARIN SODIUM - SQ 10,000 UNITS/ML VIAL SQ SCH (11:14)
[2017-01-11] MEDS ORDERED: ULTR50TA5 PO (11:42)
[2017-01-11] MEDS ORDERED: CHLO5CAP4 PO (11:42)
[2017-01-11 12:00] VITALS: BP 117/72; PULSE 88; RESP 18; TEMP 97.4; O2SAT 93
[2017-01-11 16:00] VITALS: BP 109/77; PULSE 83; RESP 18; TEMP 98.7; O2SAT 97
--- NOTE | 2017-01-11 18:35 | HHI.PR ---
Subjective Interval History Alert, oriented, mildly tremulous, seen in the presence of his father, eating better now, pain better controlled Review of Systems Pulmonary Respiratory: Wheezing (resolved) Psychiatric Psychiatric: Normal Mood Vitals/Results Intake & Output 01/10/17 01/10/17 01/11/17 15:00 23:00 07:00 Intake Total 900 ml 480 ml 360 ml Balance 900 ml 480 ml 360 ml Intake Oral 900 ml 480 ml 360 ml # Voids 12 5 5 # Bowel Movements 0 0 Vital Signs Vital Signs Date Time Temp Pulse Resp B/P Pulse Ox O2 Delivery O2 Flow Rate FiO2 01/11/17 16:00 98.7 83 18 109/77 97 01/11/17 12:00 97.4 88 18 117/72 93 01/11/17 08:00 97.9 86 18 103/71 94 01/10/17 23:10 97.4 96 18 100/65 94 01/10/17 22:45 18 01/10/17 20:00 96.7 101 18 114/69 94 CBC/BMP: 01/08/17 0621 01/10/17 0659 Physical Exam General General Appearance: Well Developed, No Acute Distress Eyes Eye Exam: Pupils Reactive Ears & Nose Ears & Nose Exam: Nasal Mucosa Hurst Throat Throat Exam: Oral Mucosa Hur[place] & Moist Neck Neck Exam: Neck Supple Pulmonary Resp Exam: Rhonchi (none), Diminished Breath Sounds (resolved) Cardiology CV Exam: Regular Gastrointestinal/Abdomen GI Exam: Soft, Bowel Sounds Present (soft) Integumentary Skin Exam: Warm, Dry, Intact Extremeties Extremities Exam: No Edema Neurologic Neuro Exam: Alert, Awake, Oriented, Speech Clear, Moving All Extremities Assessment/Plan Assessment/Plan ASSESSMENT: Acute on chronic pancreatitis Alcohol dependence Hypokalemia resolved Diabetes mellitus Poorly controlled Tobacco abuse Management Discharge home today The patient has stated that he discontinued drinking Prescription for low-dose Librium is given Continue metformin Continue insulin Discussed with patient and father Discussed with nurse Discharge Minutes: 40 Hugo Hughes MD Jan 11, 2017 18:35 gets out of the hospital Asking about Chantix for his nonsmoking, suggested that he follow-up with his PCP after discharge vital signs reviewed, normal trends, respiratory rate controlled, expiratory wheezing noted anterior and posteriorly labs reviewed, BS 203, diabetic, restart home dose metformin today, A1c pending , lipase level recheck since patient continues to have epigastric pain Hyperglycemia, pm, 10 units Novolog IV for BS >500, added sliding scale for accuchecks. accuckecks also prn for uncontrolled BS Hugo Hughes MD Jan 11, 2017 18:35
== END 2017-01-11 17:41 | disposition home or self-care (01) | DRG 440 ==
LOC: NEPE 08:15 → NEDA 10:30 → OBSVTOIN 13:10 → NEPFCDU 13:58 → N06B 21:16
PROVIDERS: ADMIT Specialist; ATTEND Specialist
DX: K85.20 Alcohol induced acute pancreatitis without necrosis or infection (principal); E11.65 Type 2 diabetes mellitus with hyperglycemia; Z79.84 Long term (current) use of oral hypoglycemic drugs; Z79.4 Long term (current) use of insulin; K86.0 Alcohol-induced chronic pancreatitis; F10.20 Alcohol dependence, uncomplicated; I10 Essential (primary) hypertension; E87.6 Hypokalemia; F17.210 Nicotine dependence, cigarettes, uncomplicated; J44.9 Chronic obstructive pulmonary disease, unspecified; E78.5 Hyperlipidemia, unspecified; Z91.19 Patient's noncompliance with other medical treatment and regimen
CPT/HCPCS: 74177; 80048; 80053; 80076; 81001; 82948; 83036; 83690; 85025; 85610; 85730; 94640; 94664; 96361; 96374; 96375; J1170; J1644; J1815; J2270; J2405; J3411; J3480; J7030; Q9967

== ENCOUNTER 2017-08-17 09:58 | Inpatient (IN) | payer OTHER ==
[~2017-08-17] VITALS: Ht 172.7 cm; Wt 72.2 kg
[~2017-08-17 09:58] MED LIST changes: +CHLO5CAP4 PO; -CYAN100015 BUCCAL; +CYAN100025 SL; -D-10TAB; -IBUP800T23 PO; +MAGN500T2 PO; +NOVORP2 SQ; +TRAM50 PO; +VITA1000 PO
[2017-08-17 10:01] VITALS: BP 112/72; PULSE 107; RESP 16; TEMP 97.9; O2SAT 97
[2017-08-17 10:30] VITALS: O2SAT 97
[2017-08-17] MEDS ORDERED: SODIUM CHLOR 0.9% 1000 ML INJ 1,000 ML IV SCH (10:34)
[2017-08-17] MEDS ORDERED: HYDROmorphone HCL PF 2 MG/ML VIAL IV PUSH ONE ×2 (10:45→13:15)
[2017-08-17] MEDS ORDERED: SODIUM CHLORIDE 0.9% FLUSH 10 ML FLUSH IV FLUSH PRN (10:45)
[2017-08-17] MEDS ORDERED: ONDANSETRON HCL 4 MG/2 ML VIAL IVP ONE (10:45)
[2017-08-17] MEDS ORDERED: SODIUM CHLOR 0.9% 1000 ML INJ 1,000 ML IV ONE (10:45)
[2017-08-17 10:54] LABS: AUTOMATED NEUTROPHIL # 5.4 TH/MM3 (1.8-7.7); BASOPHIL # 0.1 TH/MM3 (0-0.2); BASOPHIL % 1.6 % (0.0-2.0); HEMATOCRIT 36.5 % (39.0-51.0); HEMOGLOBIN 13.1 GM/DL (13.0-17.0); LYMPH % 21.7 % (9.0-44.0); LYMPHOCYTE # 1.7 TH/MM3 (1.0-4.8); MEAN CELL VOLUME 99.8 FL (80.0-100.0); MEAN CORPUSCULAR HEMOGLOBIN 35.8 PG (27.0-34.0); MEAN CORPUSCULAR HGB CONC 35.8 % (32.0-36.0); MEAN PLATELET VOLUME 8.3 FL (7.0-11.0); MONO % 8.1 % (0.0-8.0); MONOCYTE # 0.6 TH/MM3 (0-0.9); NEUT % 68.6 % (16.0-70.0); PLATELET COUNT 207 TH/MM3 (150-450); RED BLOOD COUNT 3.66 MIL/MM3 (4.50-5.90); RED CELL DISTRIBUTION WIDTH 14.9 % (11.6-17.2); WHITE BLOOD COUNT 7.8 TH/MM3 (4.0-11.0)
[2017-08-17] MEDS ORDERED: GLIM1TAB PO (10:57)
[2017-08-17 11:00] LABS: INTERNATIONAL NORMALIZED RATIO 1.2 RATIO; PROTHROMBIN TIME - PATIENT 12.5 SEC (9.8-11.6)
[2017-08-17 11:04] LABS: BACTERIA, URINE RARE /hpf; BILIRUBIN, URINE SMALL (NEG); BLOOD, URINE SMALL (NEG); GLUCOSE,URINE 1000 mg/dL (NEG); HYALINE CAST, URINE 1 /lpf (RARE); KETONE, URINE NEG (NEG); NITRITE,URINE NEG (NEG); SQUAMOUS EPITHELIAL CELL URINE <1 /hpf (0-5); URINE COLOR YELLOW (YELLW/STRAW); URINE LEUKOCYTE ESTERASE NEG (NEG)
[2017-08-17] MEDS ORDERED: IOHEXOL 350 MG/ML 10 ML VIAL (for RAD DIAG) IVCONTRAST ONE (11:12)
--- NOTE | 2017-08-17 11:13 | PD ---
HPI Chief Complaint: Abdominal Pain Time Seen by Provider: 10:15 Travel History International Travel<30 days: No Contact w/Intl Traveler<30days: No Traveled to known affect area: No History of Present Illness HPI 42-year-old male with history of alcohol abuse, pancreatitis, here for evaluation of epigastric abdominal pain, vomiting, symptoms of acute pancreatitis. The patient reports his last drink was yesterday afternoon and he feels tremulous. He has had several episodes of vomiting over the last 2 weeks and states that his emesis is clear, nonbloody, no coffee grounds. Epigastric pain is sharp, 8 out of 10, constant, radiates to his back, worse with movement and palpation. PFSH Past Medical History Arthritis: No Asthma: Yes Autoimmune Disease: No Anxiety: No Depression: No Heart Rhythm Problems: No Cancer: No Cardiovascular Problems: Yes High Cholesterol: Yes Chest Pain: Yes Congestive Heart Failure: No COPD: No Cerebrovascular Accident: No Diabetes: Yes Patient Takes Glucophage: Yes (METFORMIN) Diminished Hearing: No Endocrine: Yes Gastrointestinal Disorders: Yes (pancreatitis) GERD: Yes Genitourinary: No Hiatal Hernia: No Hypertension: Yes Immune Disorder: No Implanted Vascular Access Dvce: No Kidney Stones: No Musculoskeletal: Yes (RIGHT LEG/TOES BROKEN) Neurologic: No Psychiatric: No Reproductive: No Respiratory: Yes (ASTHMA ) Immunizations Current: Yes Migraines: No Pancreatitis: Yes Renal Failure: No Seizures: No Sleep Apnea: No Thyroid Disease: No Ulcer: No Past Surgical History Abdominal Surgery: No AICD: No Appendectomy: Yes Arteriovenous Shunt: No Cardiac Surgery: No Ear Surgery: No Endocrine Surgery: No Eye Surgery: No Genitourinary Surgery: No Gynecologic Surgery: No Insulin Pump: No Joint Replacement: No Oral Surgery: Yes (TONSILLECTOMY) Pacemaker: No Thoracic Surgery: No Tonsillectomy: Yes Other Surgery: Yes Social History Alcohol Use: Yes (DAILY VODKA- LAST DRINK 08/16/17) Tobacco Use: Yes (/2 PPD) Substance Use: Yes (ALCOHOL) Allergies-Medications (Allergen,Severity, Reaction): Coded Allergies: No Known Allergies (Unverified Adverse Reaction, Unknown, 08/17/17) Reported Meds & Prescriptions Reported Meds & Active Scripts Active Ultram (Tramadol HCl) 50 Mg Tab 50 Mg PO Q4H PRN Use half a pill every 4 hours as needed Use a whole pill if pain not controlled Chlordiazepoxide HCl 5 Mg Capsule 5 Mg PO BID PRN Reported Glimepiride 1 Mg Tab 1 Mg PO DAILY Take with breakfast or first main meal Novolin R Inj (Insulin Human Regular) 1,000 Unit/10 Ml Vial 0 SQ DIRECTED Sliding Scale As Directed. Magnesium Oxide 500 Mg Tab 500 Mg PO DAILY B-12 (Cyanocobalamin) 1,000 Mcg Subl 1,000 Mcg SL DAILY Vitamin D-1000 (Cholecalciferol) 1,000 Unit Tab 1,000 Units PO DAILY Metoprolol Tartrate 25 Mg Tab 25 Mg PO DAILY Metformin (Metformin HCl) 500 Mg Tab 500 Mg PO BIDPC With meals Potassium Chloride Microencaps 20 Meq Tab 20 Meq PO DAILY Multiple Vitamin 1 Tab 1 Tab PO DAILY Coenzyme Q10 (Bulk) (Coenzyme Q10) 1 Powd Review of Systems Except as stated in HPI: all other systems reviewed are Neg Physical Exam Narrative GENERAL: Well-developed, well-nourished, comfortable, tremulous, no apparent distress. SKIN: Focused skin assessment warm/dry. HEAD: Atraumatic. Normocephalic. EYES: Pupils equal and round. No scleral icterus. No injection or drainage. ENT: Mucous membranes pink and moist. NECK: Trachea midline. No JVD. CARDIOVASCULAR: Tachycardic, rate 120, regular. RESPIRATORY: No accessory muscle use. Clear to auscultation. Breath sounds equal bilaterally. GASTROINTESTINAL: Abdomen soft, nondistended. Moderate epigastric tenderness without peritoneal signs. Normal bowel sounds. No hernias. MUSCULOSKELETAL: No obvious deformities. No clubbing. No cyanosis. No edema. NEUROLOGICAL: Awake and alert. No obvious cranial nerve deficits. Motor grossly within normal limits. Normal speech. PSYCHIATRIC: Appropriate mood and affect; insight and judgment normal. Data Data Last Documented VS Vital Signs Date Time Temp Pulse Resp B/P (MAP) Pulse Ox O2 Delivery O2 Flow Rate FiO2 08/17/17 13:00 116 18 120/79 (93) 94 Room Air 08/17/17 10:01 97.9 Orders Orders Complete Blood Count With Diff (08/17/17 10:34) Comprehensive Metabolic Panel (08/17/17 10:34) Lipase (08/17/17 10:34) Prothrombin Time / Inr (Pt) (08/17/17 10:34) Act Partial Throm Time (Ptt) (08/17/17 10:34) Urinalysis - C+S If Indicated (08/17/17 10:34) Ct Abd/Pel W Iv Contrast(Rout) (08/17/17 10:34) Iv Access Insert/Monitor (08/17/17 10:34) Ecg Monitoring (08/17/17 10:34) Oximetry (08/17/17 10:34) Ondansetron Inj (Zofran Inj) (08/17/17 10:45) Sodium Chlor 0.9% 1000 Ml Inj (Ns 1000 M (08/17/17 10:34) Sodium Chloride 0.9% Flush (Ns Flush) (08/17/17 10:45) Beta Hydroxybutyrate (Acetone) (08/17/17 10:34) Sodium Chlor 0.9% 1000 Ml Inj (Ns 1000 M (08/17/17 10:45) Alcohol (Ethanol) (08/17/17 10:36) Hydromorphone Pf Inj (Dilaudid Pf Inj) (08/17/17 10:45) Electrocardiogram (08/17/17 ) Iohexol 350 Inj (Omnipaque 350 Inj) (08/17/17 11:12) Ckmb (Isoenzyme) Profile (08/17/17 10:40) Troponin I (08/17/17 10:40) Hydromorphone Pf Inj (Dilaudid Pf Inj) (08/17/17 13:15) Potassium Chlor 20 Meq Premix (Kcl 20 Me (08/17/17 13:45) Labs Laboratory Tests Test 08/17/17 10:40 08/17/17 12:55 White Blood Count 7.8 TH/MM3 Red Blood Count 3.66 MIL/MM3 Hemoglobin 13.1 GM/DL Hematocrit 36.5 % Mean Corpuscular Volume 99.8 FL Mean Corpuscular Hemoglobin 35.8 PG Mean Corpuscular Hemoglobin Concent 35.8 % Red Cell Distribution Width 14.9 % Platelet Count 207 TH/MM3 Mean Platelet Volume 8.3 FL Neutrophils (%) (Auto) 68.6 % Lymphocytes (%) (Auto) 21.7 % Monocytes (%) (Auto) 8.1 % Eosinophils (%) (Auto) 0.0 % Basophils (%) (Auto) 1.6 % Neutrophils # (Auto) 5.4 TH/MM3 Lymphocytes # (Auto) 1.7 TH/MM3 Monocytes # (Auto) 0.6 TH/MM3 Eosinophils # (Auto) 0.0 TH/MM3 Basophils # (Auto) 0.1 TH/MM3 CBC Comment DIFF FINAL Differential Comment Prothrombin Time 12.5 SEC Prothromb Time International Ratio 1.2 RATIO Activated Partial Thromboplast Time 27.1 SEC Urine Color YELLOW Urine Turbidity CLEAR Urine pH 7.0 Urine Specific [place] 1.008 Urine Protein 100 mg/dL Urine Glucose (UA) 1000 mg/dL Urine Ketones NEG mg/dL Urine Occult Blood SMALL Urine Nitrite NEG Urine Bilirubin SMALL Urine Urobilinogen 4.0 MG/DL Urine Leukocyte Esterase NEG Urine RBC LESS THAN 1 /hpf Urine WBC 1 /hpf Urine Squamous Epithelial Cells <1 /hpf Urine Bacteria RARE /hpf Urine Hyaline Casts 1 /lpf Microscopic Urinalysis Comment CULT NOT INDICATED Ethyl Alcohol Level 110 MG/DL Blood Urea Nitrogen 9 MG/DL Creatinine 0.68 MG/DL Random Glucose 150 MG/DL Total Protein 6.7 GM/DL Albumin 2.8 GM/DL Calcium Level 8.0 MG/DL Alkaline Phosphatase 253 U/L Aspartate Amino Transf (AST/SGOT) 194 U/L Alanine Aminotransferase (ALT/SGPT) 91 U/L Total Bilirubin 4.0 MG/DL Sodium Level 128 MEQ/L Potassium Level 1.9 MEQ/L Chloride Level 80 MEQ/L Carbon Dioxide Level 29.3 MEQ/L Anion Gap 19 MEQ/L Estimat Glomerular Filtration Rate 127 ML/MIN Total Creatine Kinase 52 U/L Troponin I LESS THAN 0.02 NG/ML Lipase 230 U/L B-Hydroxybutyrate 0.28 MMOL/L [facility] Medical Decision Making Medical Screen Exam Complete: Yes Emergency Medical Condition: Yes Differential Diagnosis Pancreatitis, hepatobiliary disease, gastritis, peptic ulcer disease, sepsis, dehydration, bowel obstruction, DKA Narrative Course Vital signs reviewed. CBC is essentially unremarkable. CMP is remarkable for sodium 128, potassium 1.9, chloride 80, T bili 4, AST 194 , ALT 91. Cardiac enzymes are negative. Lipase is 2:30. Alcohol level is 110. CT abdomen pelvis: CONCLUSION: Calcification head of pancreas minimal edema consistent with chronic pancreatitis. Correlation suggested to exclude acute. Patient was given 2 L of normal saline IV and 2 doses of 1 mg of IV Dilaudid. On reassessment he is resting comfortably, however is still tremulous. He was provided 40 mg once of IV potassium. He'll be admitted for further treatment and evaluation of severe hypokalemia, hyponatremia, chronic pancreatitis. Case discussed with the medical residents. The patient will be admitted to their service under Dr. Cain. Diagnosis Primary Impression: Hypokalemia Additional Impressions: Hyponatremia Chronic pancreatitis Qualified Codes: K86.0 - Alcohol-induced chronic pancreatitis Admitting Information Admitting Physician Requests: Admit Gurwinder Callaway MD Aug 17, 2017 11:12
--- NOTE | 2017-08-17 11:49 | RADRPT ---
EXAM DATE/TIME: 08/17/2017 11:02 [facility] COMPARISON: CT ABDOMEN & PELVIS W CONTRAST, January 07, 2017, 9:42. INDICATIONS : Upper abdominal pain, nausea vomiting, IV CONTRAST: 91 cc Omnipaque 350 (iohexol) IV ORAL CONTRAST: No oral contrast ingested. RADIATION DOSE: 6.21 CTDIvol (mGy) MEDICAL HISTORY : Cardiovascular disease. Pancreatitis. Hypertension.diabetes, liver disease SURGICAL HISTORY : Appendectomy. ENCOUNTER: Initial ACUITY: 2 weeks PAIN SCALE: 5/10 LOCATION: Bilateral upper chest TECHNIQUE: Volumetric scanning of the abdomen and pelvis was performed. Using automated exposure control and ad justment of the mA and/or kV according to patient size, radiation dose was kept as low as reasonably achievable to obtain optimal diagnostic quality images. DICOM format image data is available electro nically for review and comparison. FINDINGS: LOWER LUNGS: The visualized lower lungs are clear. LIVER: Homogeneous density without lesion. There is no dilation of the biliary tree. No calcified gallston es. SPLEEN: Normal size without lesion. PANCREAS: Evidence for calcific pancreatitis with mild edema around the head of the pancreas. KIDNEYS: Normal in size and shape. There is no mass, stone or hydronephrosis. ADRENAL GLANDS: Within normal limits. VASCULAR: There is no aortic aneurysm. BOWEL/MESENTERY: The stomach, small bowel, and colon demonstrate no acute abnormality. There is no free intraperitone al air or fluid. ABDOMINAL WALL: Within normal limits. RETROPERITONEUM: There is no lymphadenopathy. BLADDER: No wall thickening or mass. REPRODUCTIVE: Within normal limits. INGUINAL: There is no lymphadenopathy or hernia. MUSCULOSKELETAL: Within normal limits for patient age. CONCLUSION: Calcification head of pancreas minimal edema consistent with chronic pancreatitis. Correlation sugge sted to exclude acute. Ezra Paredes MD FACR on August 17, 2017 at 11:46 Board Certified Radiologist. This report was verified electronically.
[2017-08-17 12:00] VITALS: BP 120/77; PULSE 102; RESP 18; O2SAT 94
[2017-08-17 13:00] VITALS: BP 120/79; PULSE 116; RESP 18; O2SAT 94
[2017-08-17 13:28] LABS: ALBUMIN 2.8 GM/DL (3.4-5.0); ALKALINE PHOSPHATASE 253 U/L (45-117); ALT (GPT) 91 U/L (12-78); AST (GOT) 194 U/L (15-37); BICARBONATE 29.3 MEQ/L (21.0-32.0); BLOOD UREA NITROGEN 9 MG/DL (7-18); CHLORIDE 80 MEQ/L (98-107); CREATININE 0.68 MG/DL (0.60-1.30); GLOMERULAR FILTRATION RATE 127 ML/MIN (>89); GLUCOSE,RANDOM 150 MG/DL (74-106); SODIUM (NA) 128 MEQ/L (136-145); TOTAL PROTEIN 6.7 GM/DL (6.4-8.2); TROPONIN I LESS THAN 0.02 NG/ML (0.02-0.05)
[2017-08-17] MEDS: POTASSIUM CHLOR 20 MEQ PREMIX 100 ML IV SCH ×2 (14:00→17:17)
--- NOTE | 2017-08-17 14:16 | HHI.HP ---
[facility] Service Family Medicine Primary Care Physician Tien Wakefield MD Admission Diagnosis chronic pancreatitis, hypokalemia, hyponatremia Diagnoses: International Travel<30 Days: No Contact w/Intl Traveler<30days: No Known Affected Area: No History of Present Illness 42 yo presenting to ER complaining of vomiting and abd pain for last 2 weeks. Started two weeks ago. Denies binge drinking at that time (states he drinks 3 tall glasses of vodka per day - last drink day prior to admission). Initially vomiting 2-3 times per starting 2 weeks ago but over the last several days he has been vomiting 15+ times per day. Denies it being bloody, no coffee-ground appearance, states it has been mainly been green. He has tried eating soup but otherwise has had decreased appetite. Hasn't eaten in several days. Describes abdominal pain as sharp (8 out of 10) across the epigastric portion of his abd and radiating to his back. Progressively worsening over last several days - states it feels similar to prior pancreatitis flares. Denies diarrhea, bloody stools but describes it as whitish in appearance. +Diaphoresis, tremors ( believes he is withdrawing from alcohol). Had seizure from withdrawal once in the past - has been intubated before. Review of Systems Constitutional: COMPLAINS OF: Diaphoretic episodes, Weight loss (30 pounds in last month), Dizziness, Change in appetite Ears, nose, mouth, throat: COMPLAINS OF: Running Nose Respiratory: DENIES: Cough, Wheezing, Shortness of breath Cardiovascular: DENIES: Chest pain Gastrointestinal: COMPLAINS OF: Abdominal pain, Nausea, Vomiting, DENIES: Bloody stools, Diarrhea Genitourinary: DENIES: Hematuria, Dysuria Integumentary: DENIES: Rash Hematologic/lymphatic: DENIES: Lymphadenopathy Neurologic: COMPLAINS OF: Tremor, DENIES: Headache Past Family Social History Past Medical History Chronic pancreatitis 2/2 to alcoholism Chronic hypokalemia DM - uses Insulin (hasn't been using it here recently) Depression Past Surgical History Tonsillectomy Previous Endoscopy Allergies: Coded Allergies: No Known Allergies (Unverified Allergy, Unknown, 08/17/17) Family History DM - father Social History Lives at home with parents 1/2 ppd Alcohol use - 3 tall glasses of vodka per day No illicit drugs Physical Exam Vital Signs Vital Signs Date Time Temp Pulse Resp B/P (MAP) Pulse Ox O2 Delivery O2 Flow Rate FiO2 08/17/17 13:00 116 18 120/79 (93) 94 Room Air 08/17/17 12:00 102 18 120/77 (91) 94 Room Air 08/17/17 10:30 97 Room Air 08/17/17 10:30 20 08/17/17 10:01 97.9 107 16 112/72 (85) 97 Room Air Physical Exam GENERAL: This is a well-nourished, well-developed patient laying in bed appearing uncomfortable. Generalized tremors appreciated SKIN: No rashes, ecchymoses or lesions. Cool and dry. HEAD: Atraumatic. Normocephalic. No temporal or scalp tenderness. EYES: Pupils equal round and reactive. Extraocular motions intact. No scleral icterus. No injection or drainage. ENT: Nose without bleeding, purulent drainage or septal hematoma. Throat without erythema, tonsillar hypertrophy or exudate. Uvula midline. Airway patent. NECK: Trachea midline. No JVD or lymphadenopathy. Supple, nontender, no meningeal signs. CARDIOVASCULAR: Regular rate and rhythm without murmurs, gallops, or rubs. RESPIRATORY: Clear to auscultation. Breath sounds equal bilaterally. No wheezes , rales, or rhonchi. GASTROINTESTINAL: Abdomen soft. Tender to palpation in the epigastric region. No palpable masses. No guarding. MUSCULOSKELETAL: Extremities without clubbing, cyanosis, or edema. No joint tenderness, effusion, or edema noted. No calf tenderness. Negative Homans sign bilaterally. NEUROLOGICAL: Oriented to person and place but not time. Awake and alert. Cranial nerves II through XII intact. Motor and sensory grossly within normal limits. Five out of 5 muscle strength in all muscle groups. Normal speech. Laboratory Laboratory Tests Test 08/17/17 10:40 08/17/17 12:55 White Blood Count 7.8 Red Blood Count 3.66 Hemoglobin 13.1 Hematocrit 36.5 Mean Corpuscular Volume 99.8 Mean Corpuscular Hemoglobin 35.8 Mean Corpuscular Hemoglobin Concent 35.8 Red Cell Distribution Width 14.9 Platelet Count 207 Mean Platelet Volume 8.3 Neutrophils (%) (Auto) 68.6 Lymphocytes (%) (Auto) 21.7 Monocytes (%) (Auto) 8.1 Eosinophils (%) (Auto) 0.0 Basophils (%) (Auto) 1.6 Neutrophils # (Auto) 5.4 Lymphocytes # (Auto) 1.7 Monocytes # (Auto) 0.6 Eosinophils # (Auto) 0.0 Basophils # (Auto) 0.1 CBC Comment DIFF FINAL Differential Comment Prothrombin Time 12.5 Prothromb Time International Ratio 1.2 Activated Partial Thromboplast Time 27.1 Urine Color YELLOW Urine Turbidity CLEAR Urine pH 7.0 Urine Specific [place] 1.008 Urine Protein 100 Urine Glucose (UA) 1000 Urine Ketones NEG Urine Occult Blood SMALL Urine Nitrite NEG Urine Bilirubin SMALL Urine Urobilinogen 4.0 Urine Leukocyte Esterase NEG Urine RBC LESS THAN 1 Urine WBC 1 Urine Squamous Epithelial Cells <1 Urine Bacteria RARE Urine Hyaline Casts 1 Microscopic Urinalysis Comment CULT NOT INDICATED Ethyl Alcohol Level 110 Blood Urea Nitrogen 9 Creatinine 0.68 Random Glucose 150 Total Protein 6.7 Albumin 2.8 Calcium Level 8.0 Alkaline Phosphatase 253 Aspartate Amino Transf (AST/SGOT) 194 Alanine Aminotransferase (ALT/SGPT) 91 Total Bilirubin 4.0 Sodium Level 128 Potassium Level 1.9 Chloride Level 80 Carbon Dioxide Level 29.3 Anion Gap 19 Estimat Glomerular Filtration Rate 127 Total Creatine Kinase 52 Troponin I LESS THAN 0.02 Lipase 230 B-Hydroxybutyrate 0.28 Result Diagram: 08/17/17 1040 08/17/17 1255 Imaging Last 48 hours Impressions Abdomen/Pelvis CT 08/17/17 1034 Signed Impressions: Service Date/Time: Thursday, August 17, 2017 11:02 - CONCLUSION: Calcification head of pancreas minimal edema consistent with chronic pancreatitis. Correlation suggested to exclude acute. Ezra Paredes MD FACR Caprini VTE Risk Assessment Caprini VTE Risk Assessment: No/Low Risk (score <= 1) Caprini Risk Assessment Model Point Value = 1 Point Value = 2 Point Value = 3 Point Value = 5 Age 41-60 Minor surgery BMI > 25 kg/m2 Swollen legs Varicose veins or History of unexplained or recurrent spontaneous Oral contraceptives or hormone replacement Sepsis (< 1 month) Serious lung disease, including pneumonia (< 1 month) Abnormal pulmonary function Acute myocardial infarction Congestive heart failure (< 1 month) History of inflammatory bowel disease Medical patient at bed rest Age 61-74 Arthroscopic surgery Major open surgery (> 45 min) Laparoscopic surgery (> 45 min) Malignancy Confined to bed (> 72 hours) Immobilizing plaster cast Central venous access Age >= 75 History of VTE Family history of VTE Factor V Leiden Prothrombin [id number] Lupus anticoagulant Anticardiolipin antibodies Elevated serum homocysteine Heparin-induced thrombocytopenia Other congenital or acquired thrombophilia Stroke (< 1 month) Elective arthroplasty Hip, pelvis, or leg fracture Acute spinal cord injury (< 1 month) Prophylaxis Regimen Total Risk Factor Score Risk Level Prophylaxis Regimen 0-1 Low Early ambulation 2 Moderate Order ONE of the following: *Sequential Compression Device (SCD) *Heparin 5000 units SQ BID 3-4 Higher Order ONE of the following medications: *Heparin 5000 units SQ TID *Enoxaparin/Lovenox 40 mg SQ daily (WT < 150 kg, CrCl > 30 mL/min) *Enoxaparin/Lovenox 30 mg SQ daily (WT < 150 kg, CrCl > 10-29 mL/min) *Enoxaparin/Lovenox 30 mg SQ BID (WT < 150 kg, CrCl > 30 mL/min) AND/OR *Sequential Compression Device (SCD) 5 or more Highest Order ONE of the following medications: *Heparin 5000 units SQ TID (Preferred with Epidurals) *Enoxaparin/Lovenox 40 mg SQ daily (WT < 150 kg, CrCl > 30 mL/min) *Enoxaparin/Lovenox 30 mg SQ daily (WT < 150 kg, CrCl > 10-29 mL/min) *Enoxaparin/Lovenox 30 mg SQ BID (WT < 150 kg, CrCl > 30 mL/min) AND *Sequential Compression Device (SCD) Assessment and Plan Assessment and Plan 42-year-old male with history of chronic pancreatitis secondary to alcoholism, diabetes and chronic hypokalemia presenting to the ED with 2 week history of progressive nausea/vomiting and abdominal pain consistent with prior flares of pancreatitis. Patient also presenting with tremors and is concerned about alcohol withdrawal. Presenting with marked hypokalemia as well as hyponatremia. Admitting to inpatient for further management Code Status Full code Discussed Condition With Dr. Root Problem List: (1) Acute alcoholic pancreatitis ICD Codes: K85.2 - Alcohol-induced pancreatitis Status: Resolved Plan: Presenting with 2 week history of progressively worsening nausea/ vomiting and epigastric pain that radiates to the back. Suspecting acute on chronic pancreatitis, patient describes pain is consistent with prior pancreatitis flares Has been drinking 3 large glasses of vodka per day, last drink night prior to admission CT scan on admission showing calcification head of the pancreas with minimal edema Lipase on admission 230 [place] criteria of 0 (pending LDH) Received 2 L bolus of normal saline in the ED Nothing by mouth - will advance diet as patient's nausea/vomiting and pain become better controlled Aggressive IV fluids (300 mL per hour lactated Ringer's) Scheduled Toradol 30 mg IV 3 times a day Dilaudid 1 mg IV every 3 hours as needed for pain Zofran 4 mg as needed for nausea Patient has several electrolyte abnormalities as described below, EKG pending Continuous telemetry Chest x-ray pending Follow-up a.m. labs, lipase, triglycerides (2) Hypokalemia ICD Codes: E87.6 - Hypokalemia Status: Resolved Plan: Patient with a known history of chronic hypokalemia Potassium 1.9 on admission, has been as low as 2.1 in October 2016 on chart review Receiving potassium chloride 40 mEq via IV fluids in the ED Stat repeat BMP ordered EKG ordered Continuous telemetry Will replace as needed Magnesium pending (3) Hyponatremia ICD Codes: E87.1 - Hypo-osmolality and hyponatremia Status: Acute Plan: Patient is hyponatremic on admission with a sodium of 128 Has not been hyponatremic in previous hospitalization per chart review Repeat BMP pending Patient is nothing by mouth Will trend and consider further treatment (4) Alcohol withdrawal ICD Codes: F10.239 - Alcohol withdrawal syndrome Status: Acute Plan: Patient with a known history of alcohol abuse Currently drinking 3 glasses of vodka per day Presenting with tremors, is not oriented to time on admission Known history of seizures from withdrawal 1, has been intubated in the past [place] alcohol level of 110 on admission CIWA protocol ordered (5) Transaminitis ICD Codes: R74.0 - Nonspecific elevation of levels of transaminase and lactic acid dehydrogenase [LDH] Plan: Elevated liver enzymes on admission AST 194 ALT 91 Suspecting chronic liver disease secondary to alcoholism Repeat CMP in the morning (6) Diabetes ICD Codes: E11.9 - Type 2 diabetes mellitus without complications Plan: Patient with known history of diabetes Takes to metformin and Glimepiride as well as occasional Novolin use Holding home oral medications, low-dose sliding scale and Accu-Cheks (7) DVT prophylaxis ICD Codes: Z79.01 - DVT prophylaxis Status: Acute Plan: Holding pharmacologic DVT prophylaxis for now SCDs Physician Certification 2 Midnight Certification Type: Admission for Inpatient Services Order for Inpatient Services The services are ordered in accordance with Medicare regulations or non- Medicare payer requirements, as applicable. In the case of services not specified as inpatient-only, they are appropriately provided as inpatient services in accordance with the 2-midnight benchmark. Estimated LOS (days): 2 days is the estimated time the patient will need to remain in the hospital, assuming treatment plan goals are met and no additional complications. Post-Hospital Plan: Home Krishna Polo MD R1 Aug 17, 2017 14:16
[2017-08-17] MEDS: LACTATED RINGER'S 1000 ML INJ 1,000 ML IV SCH ×2 (14:43→18:03)
[2017-08-17] MEDS ORDERED: ONDANSETRON HCL 4 MG/2 ML VIAL IV PUSH PRN (14:45)
[2017-08-17] MEDS ORDERED: HYDROmorphone HCL PF 1 MG/ML VIAL IV PUSH PRN (14:45)
[2017-08-17] MEDS ORDERED: LORazepam 2 MG/ML VIAL IV PUSH PRN ×3 (15:00)
[2017-08-17] MEDS ORDERED: DEXTROSE 50% IN WATER 50 ML VIAL(D50) IV PUSH PRN (15:00)
[2017-08-17] MEDS ORDERED: FLUMAZENIL 0.5 MG/5 ML VIAL IV PUSH PRN (15:00)
[2017-08-17] MEDS ORDERED: LORazepam 2 MG TAB PO PRN (15:00)
[2017-08-17] MEDS ORDERED: GLUCAGON 1 MG/ML VIAL OTHER PRN (15:00)
[2017-08-17 15:21] LABS: BICARBONATE 28.9 MEQ/L (21.0-32.0); CALCIUM 7.7 MG/DL (8.5-10.1); CREATININE 0.56 MG/DL (0.60-1.30)
[2017-08-17] MEDS ORDERED: ENOXAPARIN SODIUM 40 MG/0.4 ML SYRINGE SQ SCH (16:00)
[2017-08-17 17:00] VITALS: BP 128/81; PULSE 96; RESP 18; O2SAT 99
[2017-08-17] MEDS ORDERED: INSULIN NovoLIN REGULAR SUPPLEMENTAL SCALE SQ SCH (17:00)
[2017-08-17] MEDS: KETOROLAC TROMETHAMINE 30 MG/ML (IVP) VIAL IVP SCH ×2 (17:16→21:09)
[2017-08-17] MEDS: INSULIN ASPART SUPPLEMENTAL SCALE SQ SCH ×2 (17:30→20:06)
[2017-08-17] MEDS ORDERED: POTASSIUM CHLORIDE 20 MEQ CONTROLLED RELEASE TAB PO ONE (17:30)
[2017-08-17 20:00] VITALS: BP 105/74; PULSE 95; RESP 20; TEMP 99.4; O2SAT 92
[2017-08-17 20:16] LABS: BICARBONATE 35.6 MEQ/L (21.0-32.0); CALCIUM 7.4 MG/DL (8.5-10.1); CREATININE 0.8 MG/DL (0.60-1.30); TROPONIN I 0.03 NG/ML (0.02-0.05)
[2017-08-17 20:30] LABS: CALCIUM-PROTEIN CORRECTED 7.8 MG/DL (8.5-10.1); TOTAL PROTEIN 6.3 GM/DL (6.4-8.2)
[2017-08-17] MEDS: SODIUM CHLORIDE 0.9% FLUSH 10 ML FLUSH IV FLUSH SCH (20:35)
[2017-08-17] MEDS: PANTOPRAZOLE SODIUM 40 MG VIAL IV PUSH SCH (20:39)
[2017-08-17] MEDS: HYDROmorphone HCL PF 2 MG/ML VIAL IV PUSH PRN (21:10)
[2017-08-17] MEDS: SODIUM CHLORIDE 0.9% FLUSH 10 ML FLUSH IV FLUSH PRN ×2 (21:10→22:05)
[2017-08-17] MEDS ORDERED: LORazepam 2 MG/ML VIAL IV PUSH ONE (21:45)
[2017-08-18] VITALS (8 sets, daily range): BP systolic 110–131; BP diastolic 74–91; PULSE 87–100; RESP 18–20; TEMP 97.5–98.6; O2SAT 93–97
[2017-08-18] MEDS: SODIUM CHLORIDE 0.9% FLUSH 10 ML FLUSH IV FLUSH PRN ×3 (00:36→05:51)
[2017-08-18] MEDS: HYDROmorphone HCL PF 2 MG/ML VIAL IV PUSH PRN ×7 (00:36→20:46)
[2017-08-18] MEDS: LACTATED RINGER'S 1000 ML INJ 1,000 ML IV SCH ×4 (00:43→20:46)
[2017-08-18] MEDS: POTASSIUM CHLORIDE 10 MEQ CONTROLLED RELEASE TAB PO SCH ×2 (03:45→08:00)
[2017-08-18] MEDS: KETOROLAC TROMETHAMINE 30 MG/ML (IVP) VIAL IVP SCH (05:51)
[2017-08-18] MEDS: PANTOPRAZOLE SODIUM 40 MG VIAL IV PUSH SCH ×2 (07:59→20:46)
[2017-08-18] MEDS: INSULIN ASPART SUPPLEMENTAL SCALE SQ SCH ×4 (08:00→21:00)
[2017-08-18] MEDS ORDERED: CYANOCOBALAMIN 1,000 MCG TAB SCH (09:00)
[2017-08-18] MEDS: SODIUM CHLORIDE 0.9% FLUSH 10 ML FLUSH IV FLUSH SCH ×2 (09:00→20:46)
[2017-08-18] MEDS ORDERED: CHOLECALCIFEROL (VIT D3) 1000 UNIT TAB PO SCH (09:00)
[2017-08-18] MEDS ORDERED: MAGNESIUM SULFATE 1 GM PREMIX 100 ML IV ONE ×2 (09:15→20:00)
[2017-08-18] MEDS: MAGNESIUM OXIDE 400 MG TAB PO SCH (09:15)
[2017-08-18 09:19] LABS: ALBUMIN 2.5 GM/DL (3.4-5.0); ALKALINE PHOSPHATASE 218 U/L (45-117); ALT (GPT) 77 U/L (12-78); AST (GOT) 209 U/L (15-37); BLOOD UREA NITROGEN 12 MG/DL (7-18); CALCIUM 7.1 MG/DL (8.5-10.1); CALCIUM-PROTEIN CORRECTED 7.6 MG/DL (8.5-10.1); CHLORIDE 92 MEQ/L (98-107); CREATININE 0.63 MG/DL (0.60-1.30); GLOMERULAR FILTRATION RATE 139 ML/MIN (>89); GLUCOSE,RANDOM 117 MG/DL (74-106); SODIUM (NA) 135 MEQ/L (136-145); TOTAL BILIRUBIN ADULT 5.7 MG/DL (0.2-1.0); TOTAL PROTEIN 6.1 GM/DL (6.4-8.2); TRIGLYCERIDES 638 MG/DL (42-150); TROPONIN I LESS THAN 0.02 NG/ML (0.02-0.05)
[2017-08-18] MEDS ORDERED: LORazepam 2 MG/ML VIAL IV PUSH ONE (13:30)
--- NOTE | 2017-08-18 13:47 | HHI.FPPN ---
Subjective Remarks No acute events overnight. Patient received 1 dose of 2 mg Ativan IV last night which improved nervousness/tremors. Today states his pain is better controlled, has had improvement in nausea with no vomiting overnight. Denies chest pain or shortness of breath. Denies hallucinations but says he sometimes feels like he is in a "dream state". (Krishna Polo MD R1) Objective Vitals Vital Signs Date Time Temp Pulse Resp B/P (MAP) Pulse Ox O2 Delivery O2 Flow Rate FiO2 08/18/17 11:38 96 08/18/17 08:00 98.0 89 18 131/81 (98) 96 08/18/17 04:00 98.6 87 20 129/91 (104) 97 08/18/17 00:00 98.6 98 20 114/74 (87) 96 08/18/17 00:00 89 08/17/17 20:00 99.4 95 20 105/74 (84) 92 08/17/17 17:00 96 18 128/81 (97) 99 Room Air 08/17/17 16:30 I/O 08/17/17 08/17/17 08/17/17 08/18/17 08/18/17 08/18/17 07:00 15:00 23:00 07:00 15:00 23:00 Intake Total 100 ml 1272 ml Output Total 300 ml Balance -200 ml 1272 ml Intake Oral 0 ml IV Total 100 ml 1272 ml Output Urine Total 300 ml (Krishna Polo MD R1) Result Diagram: 08/17/17 1040 08/18/17 0747 Objective Remarks GENERAL: This is a well-nourished, well-developed patient laying in bed in no acute distress. Generalized tremors appreciated but improved from prior exam SKIN: No rashes, ecchymoses or lesions. Cool and dry. HEAD: Atraumatic. Normocephalic. No temporal or scalp tenderness. EYES: Pupils equal round and reactive. Extraocular motions intact. No scleral icterus. No injection or drainage. ENT: Nose without bleeding, purulent drainage or septal hematoma. Throat without erythema, tonsillar hypertrophy or exudate. Uvula midline. Airway patent. NECK: Trachea midline. No JVD or lymphadenopathy. Supple, nontender, no meningeal signs. CARDIOVASCULAR: Regular rate and rhythm without murmurs, gallops, or rubs. RESPIRATORY: Clear to auscultation. Breath sounds equal bilaterally. No wheezes , rales, or rhonchi. GASTROINTESTINAL: Abdomen soft. Tender to palpation in the epigastric region. No palpable masses. No guarding. MUSCULOSKELETAL: Extremities without clubbing, cyanosis, or edema. No joint tenderness, effusion, or edema noted. No calf tenderness. Negative Homans sign bilaterally. NEUROLOGICAL: Oriented to person and place and time. Awake and alert. Cranial nerves II through XII intact. Motor and sensory grossly within normal limits. Five out of 5 muscle strength in all muscle groups. Normal speech. (Krishna Polo MD R1) A/P Assessment and Plan 42-year-old male with history of chronic pancreatitis secondary to alcoholism, diabetes and chronic hypokalemia presenting to the ED with 2 week history of progressive nausea/vomiting and abdominal pain consistent with prior flares of pancreatitis. Patient also presenting with tremors and is concerned about alcohol withdrawal. Presenting with marked hypokalemia as well as hyponatremia. Admitting to inpatient for further management Discharge Planning Discharge pending patient's improvement in nausea/vomiting and abdominal pain. Likely 1-2 days (rKishna Polo MD R1) Attending Attestation Table rounds with DR Busby, Dr Mon, Dr Polo and Dr Gant were performed this morning A detailed discussion regarding patients admission and hospital course was reviewed with Resident team Patient was seen and examined with team Agree with contents in above note SeeAssessment and Plan (Edi Cain MD) Problem List: (1) Acute alcoholic pancreatitis ICD Codes: K85.2 - Alcohol-induced pancreatitis Status: Resolved Plan: Presenting with 2 week history of progressively worsening nausea/ vomiting and epigastric pain that radiates to the back. Suspecting acute on chronic pancreatitis, patient describes pain is consistent with prior pancreatitis flares Has been drinking 3 large glasses of vodka per day, last drink night prior to admission CT scan on admission showing calcification head of the pancreas with minimal edema Lipase on admission 230, improved to 83 on 08/15 [place] criteria of 1 LDH 354 Received 2 L bolus of normal saline in the ED Patient's nausea improved today, will try clear liquid diet Aggressive IV fluids (300 mL per hour lactated Ringer's) Dilaudid 1 mg IV every 3 hours as needed for pain Zofran 4 mg as needed for nausea Patient has several electrolyte abnormalities as described below, Continuous telemetry (2) Hypokalemia ICD Codes: E87.6 - Hypokalemia Status: Resolved Plan: Patient with a known history of chronic hypokalemia Potassium 1.9 on admission, has been as low as 2.1 in October 2016 on chart review Received potassium chloride 40 mEq via IV fluids in the ED, 40 mEq by mouth as well EKG showing no arrhythmia Continuous telemetry Potassium improved to 2.3 on 08/18 Magnesium 1.1, repleting with IV and by mouth magnesium Follow-up afternoon magnesium (3) Hyponatremia ICD Codes: E87.1 - Hypo-osmolality and hyponatremia Status: Acute Plan: Patient is hyponatremic on admission with a sodium of 128 Has not been hyponatremic in previous hospitalization per chart review Improved to 135 on 08/18 Likely chronic secondary to alcohol abuse (4) Alcohol withdrawal ICD Codes: F10.239 - Alcohol withdrawal syndrome Status: Acute Plan: Patient with a known history of alcohol abuse Currently drinking 3 glasses of vodka per day Presenting with tremors, a and O 3 on 08/18 Known history of seizures from withdrawal 1, has been intubated in the past [place] alcohol level of 110 on admission CIWA protocol ordered (5) Transaminitis ICD Codes: R74.0 - Nonspecific elevation of levels of transaminase and lactic acid dehydrogenase [LDH] Plan: Elevated liver enzymes on admission AST 194 ALT 91 Suspecting chronic liver disease secondary to alcoholism AST 209, ALT 77. Had discussion with patient regarding worsening liver function the setting of chronic alcohol use. Patient has been a member of AA in the past, expresses desire to abstain from alcohol use after discharge (6) Diabetes ICD Codes: E11.9 - Type 2 diabetes mellitus without complications Plan: Patient with known history of diabetes Takes to metformin and Glimepiride as well as occasional Novolin use Holding home oral medications, low-dose sliding scale and Accu-Cheks Hemoglobin A1c pending (7) DVT prophylaxis ICD Codes: Z79.01 - DVT prophylaxis Status: Acute Plan: Holding pharmacologic DVT prophylaxis for now, SCDs (Krishna Polo MD R1) Krishna Polo MD R1 Aug 18, 2017 13:47 Edi Cain MD Aug 18, 2017 16:36
--- NOTE | 2017-08-18 14:14 | EKG ---
Date Performed: 08/17/2017 Time Performed: 11:14:20 PTAGE: 42 years EKG: SINUS TACHYCARDIA WITH OCCASIONAL VENTRICULAR PREMATURE COMPLEXES WITH OCCASIONAL SUPRAVENT RICULAR PREMATURE COMPLEXES SEPTAL MYOCARDIAL INFARCTION Consider anteroseptal myocardial infarction, age indeterminate ABNORMAL ECG Prolonged corrected QT interval PREVIOUS TRACING : 11/19/2016 01.15 DOCTOR: Rd Rivera Interpretating Date/Time 08/18/2017 14:16:36
--- NOTE | 2017-08-18 14:16 | EKG ---
Date Performed: 08/17/2017 Time Performed: 19:26:50 PTAGE: 42 years EKG: Indeterminate rhythm due to significant baseline artifact. Suspect this is normal Sinus rhy thm SEPTAL MYOCARDIAL INFARCTION , PROBABLY OLD Consider anteroseptal myocardial infarction, age indeter minate ABNORMAL ECG PREVIOUS TRACING : 08/17/2017 11.14 DOCTOR: Rd Rivera Interpretating Date/Time 08/18/2017 14:14:59
[2017-08-18 17:26] LABS: MAGNESIUM 1.1 MG/DL (1.5-2.5)
[2017-08-19] VITALS (8 sets, daily range): BP systolic 123–139; BP diastolic 75–87; PULSE 84–98; RESP 18–19; TEMP 97.9–99.3; O2SAT 93–100
[2017-08-19] MEDS: LACTATED RINGER'S 1000 ML INJ 1,000 ML IV SCH ×6 (00:16→22:48)
[2017-08-19] MEDS: HYDROmorphone HCL PF 2 MG/ML VIAL IV PUSH PRN ×8 (00:16→22:49)
[2017-08-19] MEDS: INSULIN ASPART SUPPLEMENTAL SCALE SQ SCH ×4 (08:00→19:51)
[2017-08-19] MEDS: MAGNESIUM OXIDE 400 MG TAB PO SCH (08:08)
[2017-08-19] MEDS: POTASSIUM CHLORIDE 10 MEQ CONTROLLED RELEASE TAB PO SCH ×2 (08:08→19:34)
[2017-08-19] MEDS: PANTOPRAZOLE SODIUM 40 MG VIAL IV PUSH SCH ×2 (08:09→19:33)
[2017-08-19] MEDS: SODIUM CHLORIDE 0.9% FLUSH 10 ML FLUSH IV FLUSH SCH ×2 (08:12→19:34)
[2017-08-19 08:39] LABS: AUTOMATED NEUTROPHIL # 5.6 TH/MM3 (1.8-7.7); BASOPHIL # 0.1 TH/MM3 (0-0.2); BASOPHIL % 0.9 % (0.0-2.0); EOSINOPHIL # 0.1 TH/MM3 (0-0.4); HEMATOCRIT 30.4 % (39.0-51.0); HEMOGLOBIN 10.7 GM/DL (13.0-17.0); LYMPH % 19.9 % (9.0-44.0); LYMPHOCYTE # 1.5 TH/MM3 (1.0-4.8); MEAN CELL VOLUME 102.2 FL (80.0-100.0); MEAN CORPUSCULAR HEMOGLOBIN 35.8 PG (27.0-34.0); MEAN PLATELET VOLUME 9.3 FL (7.0-11.0); MONO % 6.4 % (0.0-8.0); MONOCYTE # 0.5 TH/MM3 (0-0.9); NEUT % 71.8 % (16.0-70.0); PLATELET COUNT 145 TH/MM3 (150-450); RED BLOOD COUNT 2.98 MIL/MM3 (4.50-5.90); RED CELL DISTRIBUTION WIDTH 14.4 % (11.6-17.2); WHITE BLOOD COUNT 7.8 TH/MM3 (4.0-11.0)
[2017-08-19 08:43] LABS: HEMOGLOBIN A1C 9.1 % (4.3-6.0)
[2017-08-19 09:09] LABS: ALBUMIN 2.5 GM/DL (3.4-5.0); ALT (GPT) 62 U/L (12-78); AST (GOT) 150 U/L (15-37); BICARBONATE 30.1 MEQ/L (21.0-32.0); BLOOD UREA NITROGEN 5 MG/DL (7-18); CALCIUM 7.5 MG/DL (8.5-10.1); CHLORIDE 94 MEQ/L (98-107); CREATININE 0.54 MG/DL (0.60-1.30); GLOMERULAR FILTRATION RATE 166 ML/MIN (>89); GLUCOSE,RANDOM 136 MG/DL (74-106); SODIUM (NA) 135 MEQ/L (136-145)
[2017-08-19 09:10] LABS: ALKALINE PHOSPHATASE 211 U/L (45-117); TOTAL BILIRUBIN ADULT 5.9 MG/DL (0.2-1.0)
[2017-08-19] MEDS ORDERED: LORazepam 1 MG TAB PO PRN (09:15)
[2017-08-19] MEDS ORDERED: LORazepam 2 MG TAB PO PRN (09:15)
[2017-08-19] MEDS ORDERED: SODIUM CHLORIDE 0.9% FLUSH 10 ML FLUSH IV FLUSH PRN (09:15)
[2017-08-19] MEDS ORDERED: LORazepam 2 MG/ML VIAL IV PUSH PRN ×4 (09:15)
[2017-08-19] MEDS ORDERED: FLUMAZENIL 0.5 MG/5 ML VIAL IV PUSH PRN (09:15)
--- NOTE | 2017-08-19 09:16 | HHI.FPPN ---
Subjective Remarks Patient seen and examined bedside. No acute events overnight. Patient states that he is tolerating his clear liquid diet without any vomiting. He denies any chest pain or shortness of breath. He continues to have some lower extremity tremors, which he states is not being treated with Ativan. He attributes his tremors to his withdrawal. No acute events overnight. No fever/ chills. Objective Vitals Vital Signs Date Time Temp Pulse Resp B/P (MAP) Pulse Ox O2 Delivery O2 Flow Rate FiO2 08/19/17 08:00 97.9 92 18 139/78 (98) 97 08/19/17 03:36 98.5 86 18 139/87 (104) 96 08/19/17 00:43 98.7 84 18 123/77 (92) 95 08/18/17 20:53 95 08/18/17 19:26 97.9 100 18 110/75 (87) 95 08/18/17 16:00 98.1 88 18 120/77 (91) 93 08/18/17 12:00 97.5 94 18 113/83 (93) 96 08/18/17 11:38 96 I/O 08/18/17 08/18/17 08/18/17 08/19/17 08/19/17 08/19/17 07:00 15:00 23:00 07:00 15:00 23:00 Intake Total 1272 ml 600 ml 360 ml 2360 ml Output Total 100 ml 250 ml 1800 ml Balance 1272 ml 500 ml 110 ml 560 ml Intake Oral 600 ml 360 ml 360 ml IV Total 1272 ml 2000 ml Output Urine Total 100 ml 250 ml 1800 ml # Voids 1 # Bowel Movements 0 0 0 Result Diagram: 08/19/17 0753 08/18/17 0747 Objective Remarks GENERAL: This is a well-nourished, well-developed patient laying in bed in no acute distress. Generalized tremors appreciated but improved from prior exam SKIN: No rashes, ecchymoses or lesions. Cool and dry. HEAD: Atraumatic. Normocephalic. No temporal or scalp tenderness. EYES: Pupils equal round and reactive. Extraocular motions intact. No scleral icterus. No injection or drainage. ENT: Nose without bleeding, purulent drainage or septal hematoma. Throat without erythema, tonsillar hypertrophy or exudate. Uvula midline. Airway patent. NECK: Trachea midline. No JVD or lymphadenopathy. Supple, nontender, no meningeal signs. CARDIOVASCULAR: Regular rate and rhythm without murmurs, gallops, or rubs. RESPIRATORY: Clear to auscultation. Breath sounds equal bilaterally. Wheezing on expiration. No cough GASTROINTESTINAL: Abdomen soft. Tender to palpation in the epigastric region. No palpable masses. No guarding. MUSCULOSKELETAL: Extremities without clubbing, cyanosis, or edema. No joint tenderness, effusion, or edema noted. No calf tenderness. Negative Homans sign bilaterally. NEUROLOGICAL: Oriented to person and place and time. Awake and alert. Cranial nerves II through XII intact. Motor and sensory grossly within normal limits. Five out of 5 muscle strength in all muscle groups. Normal speech. A/P Assessment and Plan 42-year-old male with history of chronic pancreatitis secondary to alcoholism, diabetes and chronic hypokalemia presenting to the ED with 2 week history of progressive nausea/vomiting and abdominal pain consistent with prior flares of pancreatitis. Patient also presenting with tremors and is concerned about alcohol withdrawal. Presenting with marked hypokalemia as well as hyponatremia. Admitting to inpatient for further management Discharge Planning Discharge pending patient's improvement in nausea/vomiting and abdominal pain. Likely 1-2 days Problem List: (1) Acute alcoholic pancreatitis ICD Codes: K85.2 - Alcohol-induced pancreatitis Status: Resolved Plan: Presenting with 2 week history of progressively worsening nausea/ vomiting and epigastric pain that radiates to the back. Suspecting acute on chronic pancreatitis, patient describes pain is consistent with prior pancreatitis flares Has been drinking 3 large glasses of vodka per day, last drink night prior to admission CT scan on admission showing calcification head of the pancreas with minimal edema Lipase on admission 230, improved to 83 on 08/15 [place] criteria of 1 LDH 354 Received 2 L bolus of normal saline in the ED Patient's nausea improved again today, will advance to full liquid diet Aggressive IV fluids (300 mL per hour lactated Ringer's) Dilaudid 1 mg IV every 3 hours as needed for pain Zofran 4 mg as needed for nausea Patient has several electrolyte abnormalities as described below, Continuous telemetry (2) Hypokalemia ICD Codes: E87.6 - Hypokalemia Status: Acute Plan: Patient with a known history of chronic hypokalemia Potassium 1.9 on admission, has been as low as 2.1 in October 2016 on chart review Received potassium chloride 40 mEq via IV fluids in the ED, 40 mEq by mouth as well Potassium improved to 2.3 yesterday on 08/18 Add 40 mEq potassium p.o. 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 Patient has been a member of AA in the past, expresses desire to abstain from alcohol use after discharge (5) Diabetes ICD Codes: E11.9 - Type 2 diabetes mellitus without complications Plan: Patient with known history of diabetes Takes metformin and Glimepiride as well as occasional Novolin use Holding home oral medications, low-dose sliding scale and Accu-Cheks Hemoglobin A1c pending Glucose 150 on admission, trend from 76-219 with improvement over last 24 hours (6) Hyponatremia ICD Codes: E87.1 - Hypo-osmolality and hyponatremia Status: Resolved Plan: Patient is hyponatremic on admission with a sodium of 128 Has not been hyponatremic in previous hospitalization per chart review Improved to 135 on 08/18 Likely chronic secondary to alcohol abuse (7) DVT prophylaxis ICD Codes: Z79.01 - DVT prophylaxis Status: Acute Plan: Holding pharmacologic DVT prophylaxis for now, Iqra Uribe MD R2 Aug 19, 2017 09:16
[2017-08-19] MEDS: MULTIVITAMIN INJ 10 ML, FOLIC ACID INJ 1 MG in SODIUM CHLORID 0.9% 500 ML INJ 500 ML IV SCH (11:28)
[2017-08-19] MEDS: THIAMINE INJ 100 MG in SODIUM CHLORIDE 0.9% INJ 100 ML IV SCH (11:28)
[2017-08-19] MEDS: LORazepam 1 MG TAB PO PRN ×2 (13:31→22:58)
[2017-08-19 22:49] LABS: BICARBONATE 34.3 MEQ/L (21.0-32.0); CALCIUM 7.7 MG/DL (8.5-10.1); CREATININE 0.55 MG/DL (0.60-1.30); MAGNESIUM 0.9 MG/DL (1.5-2.5)
[2017-08-19] MEDS: MAGNESIUM CHLORIDE 64 MG TAB PO SCH (23:45)
[2017-08-19] MEDS ORDERED: POTASSIUM CHLORIDE 20 MEQ CONTROLLED RELEASE TAB PO ONE (23:45)
[2017-08-20] VITALS (8 sets, daily range): BP systolic 113–128; BP diastolic 66–86; PULSE 80–109; RESP 15–20; TEMP 98.1–98.9; O2SAT 94–98
[2017-08-20] MEDS: HYDROmorphone HCL PF 2 MG/ML VIAL IV PUSH PRN ×6 (02:40→22:15)
[2017-08-20] MEDS: LACTATED RINGER'S 1000 ML INJ 1,000 ML IV SCH ×4 (02:43→21:40)
[2017-08-20 06:27] LABS: ALBUMIN 2.4 GM/DL (3.4-5.0); ALKALINE PHOSPHATASE 202 U/L (45-117); ALT (GPT) 52 U/L (12-78); AST (GOT) 117 U/L (15-37); BICARBONATE 34.9 MEQ/L (21.0-32.0); BLOOD UREA NITROGEN 2 MG/DL (7-18); CALCIUM 7.7 MG/DL (8.5-10.1); CHLORIDE 93 MEQ/L (98-107); CREATININE 0.45 MG/DL (0.60-1.30); GLOMERULAR FILTRATION RATE 205 ML/MIN (>89); GLUCOSE,RANDOM 101 MG/DL (74-106); MAGNESIUM 0.7 MG/DL (1.5-2.5); PHOSPHORUS 0.9 MG/DL (2.5-4.9); SODIUM (NA) 138 MEQ/L (136-145); TOTAL BILIRUBIN ADULT 7.6 MG/DL (0.2-1.0); TOTAL PROTEIN 5.8 GM/DL (6.4-8.2)
[2017-08-20] MEDS ORDERED: MAGNESIUM SULFATE 4 GM PREMIX 150 ML IV ONE (07:45)
[2017-08-20] MEDS: INSULIN ASPART SUPPLEMENTAL SCALE SQ SCH ×4 (08:00→22:16)
[2017-08-20] MEDS: MAGNESIUM SULFAT 1 GM PREMIX 100 ML x2 bags IV SCH ×4 (08:00→11:00)
[2017-08-20] MEDS: MAGNESIUM OXIDE 400 MG TAB PO SCH (08:34)
[2017-08-20] MEDS: POTASSIUM CHLORIDE 10 MEQ CONTROLLED RELEASE TAB PO SCH ×2 (08:34→22:15)
[2017-08-20] MEDS: PANTOPRAZOLE SODIUM 40 MG VIAL IV PUSH SCH ×2 (08:36→22:15)
[2017-08-20] MEDS: SODIUM CHLORIDE 0.9% FLUSH 10 ML FLUSH IV FLUSH SCH ×2 (09:00→21:00)
[2017-08-20] MEDS: MAGNESIUM CHLORIDE 64 MG TAB PO SCH ×2 (09:00→22:16)
[2017-08-20] MEDS ORDERED: POTASSIUM PHOSPHATE INJ 30 MMOL in SODIUM CHLOR 0.9% 250 ML INJ 250 ML IV ONE (09:00)
[2017-08-20] MEDS: MULTIVITAMIN INJ 10 ML, FOLIC ACID INJ 1 MG in SODIUM CHLORID 0.9% 500 ML INJ 500 ML IV SCH (10:00)
[2017-08-20] MEDS: THIAMINE INJ 100 MG in SODIUM CHLORIDE 0.9% INJ 100 ML IV SCH (11:00)
--- NOTE | 2017-08-20 11:17 | HHI.FPPN ---
Subjective Remarks Patient seen and examined this morning. No acute events overnight. Reports feeling improved today. Minimal pain. Tolerated FLD yesterday, no nausea/ vomiting. Denies any fever/chills, chest pain, SOB, leg pain. Objective Vitals Vital Signs Date Time Temp Pulse Resp B/P (MAP) Pulse Ox O2 Delivery O2 Flow Rate FiO2 08/20/17 08:00 98.9 91 17 122/74 (90) 97 08/20/17 06:19 18 08/20/17 04:03 98.5 93 20 118/81 (93) 98 08/20/17 00:34 98.9 109 19 128/86 (100) 98 08/19/17 19:27 99.0 98 19 133/87 (102) 98 08/19/17 17:48 97 21 08/19/17 16:00 99.3 97 18 134/84 (101) 97 08/19/17 12:00 98.1 98 18 131/75 (93) 100 I/O 08/19/17 08/19/17 08/19/17 08/20/17 08/20/17 08/20/17 07:00 15:00 23:00 07:00 15:00 23:00 Intake Total 2360 ml 800 ml 360 ml 360 ml Output Total 1800 ml 1300 ml 1100 ml Balance 560 ml -500 ml 360 ml -740 ml Intake Oral 360 ml 800 ml 360 ml 360 ml IV Total 2000 ml Output Urine Total 1800 ml 1300 ml 1100 ml # Voids 1 # Bowel Movements 0 0 0 0 Result Diagram: 08/19/17 0753 08/20/17 0417 Imaging Last Impressions Abdomen/Pelvis CT 08/17/17 1034 Signed Impressions: Service Date/Time: Thursday, August 17, 2017 11:02 - CONCLUSION: Calcification head of pancreas minimal edema consistent with chronic pancreatitis. Correlation suggested to exclude acute. Ezra Paredes MD FACR Objective Remarks GENERAL: This is a well-nourished, well-developed patient laying in bed in no acute distress. Generalized tremors appreciated but improved from prior exam CARDIOVASCULAR: Regular rate and rhythm without murmurs, gallops, or rubs. RESPIRATORY: Clear to auscultation. Breath sounds equal bilaterally. Wheezing on expiration. No cough GASTROINTESTINAL: Abdomen soft. Tender to palpation in the epigastric region. No palpable masses. No guarding. MUSCULOSKELETAL: Extremities without clubbing, cyanosis, or edema. NEUROLOGICAL: Oriented to person and place and time. Awake and alert. Motor and sensory grossly within normal limits. Normal speech. A/P Assessment and Plan 42-year-old male with history of chronic pancreatitis secondary to alcoholism, diabetes and chronic hypokalemia presenting to the ED with 2 week history of progressive nausea/vomiting and abdominal pain consistent with prior flares of pancreatitis. Patient also presenting with tremors and is concerned about alcohol withdrawal. Presenting with marked hypokalemia as well as hyponatremia. Admitting to inpatient for further management Discharge Planning Discharge pending patient's improvement in nausea/vomiting and abdominal pain. Likely 1-2 days Problem List: (1) Acute alcoholic pancreatitis ICD Codes: K85.2 - Alcohol-induced pancreatitis Status: Resolved Plan: Presenting with 2 week history of progressively worsening nausea/ vomiting and epigastric pain that radiates to the back. Suspecting acute on chronic pancreatitis, patient describes pain is consistent with prior pancreatitis flares Has been drinking 3 large glasses of vodka per day, last drink night prior to admission CT scan on admission showing calcification head of the pancreas with minimal edema Lipase on admission 230, improved to 83 on 08/15 [place] criteria of 1 LDH 354 Received 2 L bolus of normal saline in the ED Patient's nausea improved again today, will advance to regular diet Decrease IV fluids to maintenance. Dilaudid 1 mg IV every 3 hours as needed for pain Zofran 4 mg as needed for nausea Patient has several electrolyte abnormalities as described below, Continuous telemetry (2) Hypokalemia ICD Codes: E87.6 - Hypokalemia Status: Acute Plan: Patient with a known history of chronic hypokalemia Potassium 1.9 on admission, has been as low as 2.1 in October 2016 on chart review 40 mEq potassium p.o. 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 Patient has been a member of AA in the past, expresses desire to abstain from alcohol use after discharge (5) Diabetes ICD Codes: E11.9 - Type 2 diabetes mellitus without complications Plan: Patient with known history of diabetes Takes metformin and Glimepiride as well as occasional Novolin use Hemoglobin A1c 9.1 Holding home oral medications, low-dose sliding scale and Accu-Cheks (6) DVT prophylaxis ICD Codes: Z79.01 - DVT prophylaxis Status: Acute Plan: Lovenox 40mg daily Ibrahima Hong MD Aug 20, 2017 11:17
[2017-08-20] MEDS ORDERED: MAGNESIUM HYDROXIDE SUSP 30 ML CUP PO PRN (14:45)
[2017-08-20] MEDS ORDERED: LACTULOSE SYRUP 20 GM/30 ML CUP PO PRN (14:45)
[2017-08-20] MEDS ORDERED: BISACODYL 10 MG SUPP RECTAL PRN (14:45)
[2017-08-20] MEDS ORDERED: SENNOSIDES 8.6 MG TAB PO PRN (14:45)
[2017-08-20] MEDS: ENOXAPARIN SODIUM 40 MG/0.4 ML SYRINGE SQ SCH (15:00)
[2017-08-20 16:07] LABS: BICARBONATE 35.1 MEQ/L (21.0-32.0); CALCIUM 7.8 MG/DL (8.5-10.1); CREATININE 0.53 MG/DL (0.60-1.30)
[2017-08-20] MEDS: LORazepam 2 MG/ML VIAL IV PUSH PRN (18:55)
[2017-08-20 22:15] LABS: BICARBONATE 31.5 MEQ/L (21.0-32.0); CALCIUM 7.4 MG/DL (8.5-10.1); CREATININE 0.58 MG/DL (0.60-1.30); MAGNESIUM 1.3 MG/DL (1.5-2.5); PHOSPHORUS 2.2 MG/DL (2.5-4.9)
[2017-08-20] MEDS: DOCUSATE SODIUM 50 MG/SENNA 8.6 MG TAB PO SCH (22:16)
[2017-08-20 22:36] LABS: CALCIUM-PROTEIN CORRECTED 8.2 MG/DL (8.5-10.1); TOTAL PROTEIN 5.7 GM/DL (6.4-8.2)
--- NOTE | 2017-08-20 22:48 | EKG ---
Date Performed: 08/20/2017 Time Performed: 10:00:44 PTAGE: 42 years EKG: Sinus rhythm WITH OCCASIONAL SUPRAVENTRICULAR PREMATURE COMPLEXES BORDERLINE ECG PREVIOUS TRACING : 08/19/2017 12.43 DOCTOR: Jermaine Liriano Interpretating Date/Time 08/20/2017 22:45:15
--- NOTE | 2017-08-20 23:11 | EKG ---
Date Performed: 08/19/2017 Time Performed: 12:43:34 PTAGE: 42 years EKG: Sinus rhythm WITH OCCASIONAL SUPRAVENTRICULAR PREMATURE COMPLEXES SEPTAL MYOCARDIAL INFARCTION , PROBABLY OLD ABN ORMAL ECG PREVIOUS TRACING : 08/17/2017 19.26 DOCTOR: Jermaine Liriano Interpretating Date/Time 08/20/2017 23:00:55
[2017-08-21] VITALS (10 sets, daily range): BP systolic 104–134; BP diastolic 61–98; PULSE 78–110; RESP 17–18; TEMP 98.1–98.5; O2SAT 93–98
[2017-08-21] MEDS: LORazepam 2 MG/ML VIAL IV PUSH PRN (01:24)
[2017-08-21] MEDS: HYDROmorphone HCL PF 2 MG/ML VIAL IV PUSH PRN ×7 (01:24→22:55)
[2017-08-21 05:58] LABS: BICARBONATE 24.6 MEQ/L (21.0-32.0); CALCIUM 7.2 MG/DL (8.5-10.1); CREATININE 0.51 MG/DL (0.60-1.30); MAGNESIUM 1.1 MG/DL (1.5-2.5); PHOSPHORUS 2.8 MG/DL (2.5-4.9)
[2017-08-21 06:16] LABS: CALCIUM-PROTEIN CORRECTED 7.6 MG/DL (8.5-10.1); TOTAL PROTEIN 6.4 GM/DL (6.4-8.2)
[2017-08-21 07:05] LABS: HEMATOCRIT 30.2 % (39.0-51.0); HEMOGLOBIN 10.3 GM/DL (13.0-17.0); MEAN CORPUSCULAR HEMOGLOBIN 35.1 PG (27.0-34.0); MEAN PLATELET VOLUME 8.5 FL (7.0-11.0); PLATELET COUNT 164 TH/MM3 (150-450); RED BLOOD COUNT 2.93 MIL/MM3 (4.50-5.90); RED CELL DISTRIBUTION WIDTH 15.4 % (11.6-17.2); WHITE BLOOD COUNT 6.1 TH/MM3 (4.0-11.0)
[2017-08-21] MEDS ORDERED: MAGNESIUM SULFATE 4 GM PREMIX 100 ML IV ONE (07:15)
[2017-08-21] MEDS ORDERED: CALCIUM CARBONATE 1.25 GM (CA 500 MG) TAB PO ONE (07:15)
[2017-08-21] MEDS: MAGNESIUM CHLORIDE 64 MG TAB PO SCH ×2 (08:36→19:41)
[2017-08-21] MEDS: MAGNESIUM SULFATE 1 GM PREMIX 100 ML IV SCH ×4 (08:36→13:36)
[2017-08-21] MEDS: POTASSIUM CHLORIDE 10 MEQ CONTROLLED RELEASE TAB PO SCH ×2 (08:36→19:41)
[2017-08-21] MEDS: DOCUSATE SODIUM 50 MG/SENNA 8.6 MG TAB PO SCH ×2 (08:36→19:44)
[2017-08-21] MEDS: MAGNESIUM OXIDE 400 MG TAB PO SCH (08:37)
[2017-08-21] MEDS: SODIUM CHLORIDE 0.9% FLUSH 10 ML FLUSH IV FLUSH SCH ×2 (08:37→19:40)
[2017-08-21] MEDS: PANTOPRAZOLE SODIUM 40 MG VIAL IV PUSH SCH ×2 (08:37→19:41)
[2017-08-21] MEDS: INSULIN ASPART SUPPLEMENTAL SCALE SQ SCH ×4 (08:55→19:53)
[2017-08-21] MEDS: LACTATED RINGER'S 1000 ML INJ 1,000 ML IV SCH ×3 (10:35→22:59)
[2017-08-21] MEDS: THIAMINE INJ 100 MG in SODIUM CHLORIDE 0.9% INJ 100 ML IV SCH (10:59)
[2017-08-21] MEDS: MULTIVITAMIN INJ 10 ML, FOLIC ACID INJ 1 MG in SODIUM CHLORID 0.9% 500 ML INJ 500 ML IV SCH (11:57)
[2017-08-21] MEDS: ENOXAPARIN SODIUM 40 MG/0.4 ML SYRINGE SQ SCH (13:38)
--- NOTE | 2017-08-21 16:37 | HHI.FPPN ---
Subjective Remarks Delayed entry Patient seen and examined at bedside this morning. No acute events overnight. Pt stated he is feeling well. Tolerating po. Denies CP, SOB, N/V. Pt still has not had BM. Pt reports mild upper abdominal pain that radiates to the back, although he states the pain has improved. Objective Vitals Vital Signs Date Time Temp Pulse Resp B/P (MAP) Pulse Ox O2 Delivery O2 Flow Rate FiO2 08/21/17 16:00 98.5 80 17 110/66 (81) 97 08/21/17 11:53 98.2 82 17 104/61 (75) 96 08/21/17 09:40 93 21 08/21/17 07:54 98.1 83 17 106/74 (85) 97 08/21/17 04:03 78 08/21/17 03:35 98.3 103 18 132/82 (99) 96 08/21/17 00:55 98.1 110 18 134/98 (110) 98 08/20/17 23:47 88 08/20/17 21:45 98.1 100 17 113/77 (89) 94 08/20/17 21:31 101 08/20/17 19:20 18 I/O 08/20/17 08/20/17 08/20/17 08/21/17 08/21/17 08/21/17 07:00 15:00 23:00 07:00 15:00 23:00 Intake Total 360 ml 2060 ml 1300 ml 720 ml 781 ml Output Total 1100 ml 600 ml 600 ml 1350 ml Balance -740 ml 1460 ml 700 ml -630 ml 781 ml Intake Oral 360 ml 960 ml 720 ml 480 ml IV Total 1100 ml 1300 ml 301 ml Output Urine Total 1100 ml 600 ml 600 ml 1350 ml # Voids 2 3 # Bowel Movements 0 0 0 2 Result Diagram: 08/21/17 0645 08/21/17 0415 Objective Remarks GENERAL: This is a well-nourished, well-developed patient siting up in bed. No tremors appreciated on exam. CARDIOVASCULAR: Normal S1 and S2. Regular rate and rhythm without murmurs, gallops, or rubs. RESPIRATORY: Clear to auscultation. Breath sounds equal bilaterally. No cough or wheezing. GASTROINTESTINAL: Abdomen soft. Tender to palpation in the epigastric region. No palpable masses. No guarding. MUSCULOSKELETAL: Extremities without clubbing, cyanosis, or edema. NEUROLOGICAL: Oriented to person and place and time. Awake and alert. Motor and sensory grossly within normal limits. Normal speech. A/P Assessment and Plan 42-year-old male with history of chronic pancreatitis secondary to alcoholism, diabetes and chronic hypokalemia presenting to the ED with 2 week history of progressive nausea/vomiting and abdominal pain consistent with prior flares of pancreatitis. Patient also presenting with tremors and is concerned about alcohol withdrawal. Presenting with marked hypokalemia as well as hyponatremia. Admitting to inpatient for further management Discharge Planning Discharge pending patient's improvement in po intake and normalization of electrolytes. Likely tomorrow. Problem List: (1) Acute alcoholic pancreatitis ICD Codes: K85.2 - Alcohol-induced pancreatitis Status: Resolved Plan: Presenting with 2 week history of progressively worsening nausea/ vomiting and epigastric pain that radiates to the back. Suspecting acute on chronic pancreatitis, patient describes pain is consistent with prior pancreatitis flares Has been drinking 3 large glasses of vodka per day, last drink night prior to admission CT scan on admission showing calcification head of the pancreas with minimal edema Lipase on admission 230, improved to 83 on 08/15 [place] criteria of 1 LDH 354 Received 2 L bolus of normal saline in the ED N/V improved, will advance to regular diet Decrease IV fluids to maintenance. Dilaudid 1 mg IV every 3 hours as needed for pain Zofran 4 mg as needed for nausea Patient has several electrolyte abnormalities as described below. Continuous telemetry (2) Hypokalemia ICD Codes: E87.6 - Hypokalemia Status: Acute Plan: Patient with a known history of chronic hypokalemia Potassium 1.9 on admission, has been as low as 2.1 in October 2016 on chart review K improving, K- 3.8 today, Phosphorus 2.8 -continue to monitor 40 mEq potassium p.o. 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 Patient has been a member of AA in the past, expresses desire to abstain from alcohol use after discharge (5) Diabetes ICD Codes: E11.9 - Type 2 diabetes mellitus without complications Plan: Patient with known history of diabetes Takes metformin and Glimepiride as well as occasional Novolin use Hemoglobin A1c 9.1 Holding home oral medications, low-dose sliding scale and Accu-Cheks (6) DVT prophylaxis ICD Codes: Z79.01 - DVT prophylaxis Status: Acute Plan: Lovenox 40mg daily Zoya Gant MD, R1 Aug 21, 2017 16:37
[2017-08-21] MEDS: LORazepam 1 MG TAB PO PRN (23:00)
[2017-08-22] VITALS (11 sets, daily range): BP systolic 103–124; BP diastolic 64–85; PULSE 63–91; RESP 17–20; TEMP 97.3–98.7; O2SAT 98–99
[2017-08-22] MEDS: HYDROmorphone HCL PF 2 MG/ML VIAL IV PUSH PRN ×8 (02:04→23:58)
[2017-08-22] MEDS: PANTOPRAZOLE SODIUM 40 MG VIAL IV PUSH SCH ×2 (07:47→20:55)
[2017-08-22] MEDS: INSULIN ASPART SUPPLEMENTAL SCALE SQ SCH ×4 (07:47→21:06)
[2017-08-22] MEDS: DOCUSATE SODIUM 50 MG/SENNA 8.6 MG TAB PO SCH ×2 (07:48→21:00)
[2017-08-22] MEDS: POTASSIUM CHLORIDE 10 MEQ CONTROLLED RELEASE TAB PO SCH ×2 (07:48→20:55)
[2017-08-22] MEDS: MAGNESIUM CHLORIDE 64 MG TAB PO SCH ×2 (07:48→20:55)
[2017-08-22] MEDS: MAGNESIUM OXIDE 400 MG TAB PO SCH (07:48)
[2017-08-22] MEDS: SODIUM CHLORIDE 0.9% FLUSH 10 ML FLUSH IV FLUSH SCH ×2 (07:52→21:00)
[2017-08-22] MEDS: LACTATED RINGER'S 1000 ML INJ 1,000 ML IV SCH ×2 (07:55→21:00)
[2017-08-22 08:32] LABS: HEMATOCRIT 34.4 % (39.0-51.0); HEMOGLOBIN 11.6 GM/DL (13.0-17.0); MEAN CORPUSCULAR HEMOGLOBIN 35.7 PG (27.0-34.0); MEAN CORPUSCULAR HGB CONC 33.7 % (32.0-36.0); MEAN PLATELET VOLUME 9.2 FL (7.0-11.0); PLATELET COUNT 223 TH/MM3 (150-450); RED BLOOD COUNT 3.24 MIL/MM3 (4.50-5.90); WHITE BLOOD COUNT 6.6 TH/MM3 (4.0-11.0)
[2017-08-22 08:57] LABS: ALBUMIN 2.6 GM/DL (3.4-5.0); AST (GOT) 70 U/L (15-37); BICARBONATE 29.6 MEQ/L (21.0-32.0); BLOOD UREA NITROGEN 2 MG/DL (7-18); CALCIUM 8.1 MG/DL (8.5-10.1); CHLORIDE 94 MEQ/L (98-107); GLOMERULAR FILTRATION RATE 147 ML/MIN (>89); GLUCOSE,RANDOM 124 MG/DL (74-106); MAGNESIUM 1.5 MG/DL (1.5-2.5); SODIUM (NA) 135 MEQ/L (136-145)
[2017-08-22 09:04] LABS: ALKALINE PHOSPHATASE 205 U/L (45-117); PHOSPHORUS 2.4 MG/DL (2.5-4.9); TOTAL BILIRUBIN ADULT 10.1 MG/DL (0.2-1.0); TOTAL PROTEIN 6.4 GM/DL (6.4-8.2)
[2017-08-22 09:05] LABS: ALT (GPT) 39 U/L (12-78)
[2017-08-22 09:19] LABS: BASOPHILS 1 % (0-2); LYMPHOCYTES 21 % (9-44); MONOCYTES 13 % (0-8); NEUTROPHIL # MANUAL DIFF 4.2 TH/MM3 (1.8-7.7); POLYS (SEG NEUTROPHILS) 63 % (16-70)
[2017-08-22] MEDS: MULTIVITAMIN INJ 10 ML, FOLIC ACID INJ 1 MG in SODIUM CHLORID 0.9% 500 ML INJ 500 ML IV SCH (09:59)
--- NOTE | 2017-08-22 12:04 | HHI.FPPN ---
Subjective Remarks Patient seen and examined at bedside this morning. No acute events overnight. Pt stated he is feeling well. Tolerating po. Denies CP, SOB, N/V. Pt still had BM yesterday. Pt still with c/o mild upper abdominal/epigastic pain that radiates to the back, although he states the pain has improved. Objective Vitals Vital Signs Date Time Temp Pulse Resp B/P (MAP) Pulse Ox O2 Delivery O2 Flow Rate FiO2 08/22/17 09:40 98 08/22/17 08:52 18 08/22/17 08:00 98.4 81 18 103/69 (80) 98 08/22/17 04:05 97.8 71 17 110/67 (81) 99 08/22/17 04:00 73 08/22/17 00:10 98.0 91 17 124/85 (98) 98 08/22/17 00:00 72 08/21/17 20:10 98.1 95 17 108/70 (83) 96 08/21/17 20:00 87 08/21/17 18:29 86 08/21/17 16:00 98.5 80 17 110/66 (81) 97 08/21/17 11:53 98.2 82 17 104/61 (75) 96 I/O 08/21/17 08/21/17 08/21/17 08/22/17 08/22/17 08/22/17 06:59 14:59 22:59 06:59 14:59 22:59 Intake Total 720 ml 881 ml 1502.2 ml 960 ml 974 ml Output Total 1350 ml Balance -630 ml 881 ml 1502.2 ml 960 ml 974 ml Intake Oral 720 ml 480 ml 960 ml IV Total 401 ml 1502.2 ml 974 ml Output Urine Total 1350 ml # Voids 2 3 4 # Bowel Movements 0 2 1 0 Result Diagram: 08/22/17 0648 08/22/17 0648 Objective Remarks GENERAL: This is a well-nourished, well-developed patient siting up in bed. No tremors appreciated on exam. CARDIOVASCULAR: Normal S1 and S2. Regular rate and rhythm without murmurs, gallops, or rubs. RESPIRATORY: Clear to auscultation. Breath sounds equal bilaterally. No cough or wheezing. GASTROINTESTINAL: Abdomen soft. Tender to palpation in the epigastric region. No palpable masses. No guarding. MUSCULOSKELETAL: Extremities without clubbing, cyanosis, or edema. NEUROLOGICAL: Oriented to person and place and time. Awake and alert. Motor and sensory grossly within normal limits. Normal speech. A/P Assessment and Plan 42-year-old male with history of chronic pancreatitis secondary to alcoholism, diabetes and chronic hypokalemia presenting to the ED with 2 week history of progressive nausea/vomiting and abdominal pain consistent with prior flares of pancreatitis. Patient also presenting with tremors and is concerned about alcohol withdrawal. Presenting with marked hypokalemia as well as hyponatremia. Admitting to inpatient for further management Discharge Planning Discharge pending patient's improvement in po intake and normalization of electrolytes. Likely possible discharge today. Problem List: (1) Acute alcoholic pancreatitis ICD Codes: K85.2 - Alcohol-induced pancreatitis Status: Resolved Plan: Presenting with 2 week history of progressively worsening nausea/ vomiting and epigastric pain that radiates to the back. Pain has improved but still present. Suspecting acute on chronic pancreatitis, patient describes pain is consistent with prior pancreatitis flares Has been drinking 3 large glasses of vodka per day, last drink night prior to admission CT scan on admission showing calcification head of the pancreas with minimal edema Lipase on admission 230, improved to 83 on 08/15 [place] criteria of 1 LDH 354 Received 2 L bolus of normal saline in the ED N/V improved, diet advance to regular diet Decrease IV fluids to maintenance. Dilaudid 1 mg IV every 3 hours as needed for pain Zofran 4 mg as needed for nausea Patient has several electrolyte abnormalities as described below. Continuous telemetry (2) Hypokalemia ICD Codes: E87.6 - Hypokalemia Status: Acute Plan: Patient with a known history of chronic hypokalemia Potassium 1.9 on admission, has been as low as 2.1 in October 2016 on chart review K- 3.8 yesterday but decreased today to 2.6, Phosphorus 2.8-->2.4, Magnesium improved from 1.1-->1.5, repleting with IV and by mouth magnesium 400 mg daily -f/u BMP, mag, and phosp 40 mEq potassium p.o. 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 Patient has been a member of AA in the past, expresses desire to abstain from alcohol use after discharge (5) Diabetes ICD Codes: E11.9 - Type 2 diabetes mellitus without complications Plan: Patient with known history of diabetes Takes metformin and Glimepiride as well as occasional Novolin use Hemoglobin A1c 9.1 Holding home oral medications, low-dose sliding scale and Accu-Cheks (6) DVT prophylaxis ICD Codes: Z79.01 - DVT prophylaxis Status: Acute Plan: Lovenox 40mg daily Zoya Gant MD, R1 Aug 22, 2017 12:04
[2017-08-22] MEDS ORDERED: POTASSIUM CHLORIDE 10 MEQ CONTROLLED RELEASE TAB PO ONE (14:00)
[2017-08-22] MEDS: ENOXAPARIN SODIUM 40 MG/0.4 ML SYRINGE SQ SCH (14:20)
[2017-08-22 17:38] LABS: BICARBONATE 30.1 MEQ/L (21.0-32.0); CREATININE 0.52 MG/DL (0.60-1.30); MAGNESIUM 1.1 MG/DL (1.5-2.5); PHOSPHORUS 1.6 MG/DL (2.5-4.9)
[2017-08-22] MEDS: LIPASE/PROTEASE/AMYLASE (12,000/38,000/60,000) CAP PO SCH (17:55)
[2017-08-22] MEDS ORDERED: POTASSIUM PHOSPHATE INJ 30 MMOL in SODIUM CHLOR 0.9% 250 ML INJ 250 ML IV ONE (21:00)
[2017-08-22] MEDS: LORazepam 1 MG TAB PO PRN (21:07)
[2017-08-23] VITALS: BP 128/91; PULSE 79; RESP 20; TEMP 96.7; O2SAT 99
[2017-08-23] MEDS: HYDROmorphone HCL PF 2 MG/ML VIAL IV PUSH PRN ×2 (02:55→06:14)
[2017-08-23 04:00] VITALS: BP 108/71; PULSE 72; PULSE 90; RESP 20; TEMP 97.9; O2SAT 99
[2017-08-23] MEDS: LACTATED RINGER'S 1000 ML INJ 1,000 ML IV SCH ×2 (04:16→13:22)
[2017-08-23 07:33] VITALS: BP 106/69; PULSE 83; RESP 19; TEMP 97.2; O2SAT 97
[2017-08-23] MEDS: INSULIN ASPART SUPPLEMENTAL SCALE SQ SCH ×2 (08:00→12:00)
[2017-08-23] MEDS: PANTOPRAZOLE SODIUM 40 MG VIAL IV PUSH SCH (08:08)
[2017-08-23] MEDS: LIPASE/PROTEASE/AMYLASE (12,000/38,000/60,000) CAP PO SCH ×2 (08:08→12:28)
[2017-08-23] MEDS: POTASSIUM CHLORIDE 10 MEQ CONTROLLED RELEASE TAB PO SCH (08:08)
[2017-08-23] MEDS: MAGNESIUM CHLORIDE 64 MG TAB PO SCH (08:09)
[2017-08-23] MEDS: MAGNESIUM OXIDE 400 MG TAB PO SCH (08:09)
[2017-08-23] MEDS: MULTIVITAMIN INJ 10 ML, FOLIC ACID INJ 1 MG in SODIUM CHLORID 0.9% 500 ML INJ 500 ML IV SCH (08:12)
[2017-08-23] MEDS: DOCUSATE SODIUM 50 MG/SENNA 8.6 MG TAB PO SCH (08:19)
[2017-08-23] MEDS: SODIUM CHLORIDE 0.9% FLUSH 10 ML FLUSH IV FLUSH SCH (08:19)
[2017-08-23] MEDS ORDERED: ACETAMINOPHEN/HYDROcodone 325 MG/5 MG TAB PO PRN (08:30)
[2017-08-23] MEDS ORDERED: NALOXONE HCL 0.4 MG/ML AMP IV PUSH PRN (08:30)
[2017-08-23] MEDS ORDERED: HYDROmorphone HCL PF 1 MG/ML VIAL IV PUSH PRN (08:30)
[2017-08-23] MEDS ORDERED: ACETAMINOPHEN 325 MG TAB PO PRN (08:30)
[2017-08-23] MEDS ORDERED: THIAMINE HCL 100 MG TAB PO SCH (09:00)
[2017-08-23] MEDS: ACETAMINOPHEN/HYDROcodone 325 MG/10 MG TAB PO PRN ×2 (09:07→13:39)
--- NOTE | 2017-08-23 09:32 | HHI.FPPN ---
Subjective Remarks Seen and examined at bedside this morning. No acute events overnight. Patient's patient that he had a bowel movement yesterday. Patient is tolerating po. Denies CP, SOB, N/V. Pt still had BM yesterday. Pt still with c/o mild upper abdominal/epigastic pain that radiates to the back, although he states the pain has tolerable with medications. Objective Vitals Vital Signs Date Time Temp Pulse Resp B/P (MAP) Pulse Ox O2 Delivery O2 Flow Rate FiO2 08/23/17 07:33 97.2 83 19 106/69 (81) 97 08/23/17 04:00 97.9 90 20 108/71 (83) 99 08/23/17 04:00 72 08/23/17 00:00 96.7 79 20 128/91 (103) 99 08/22/17 23:45 65 08/22/17 20:00 98.7 82 20 119/73 (88) 98 08/22/17 20:00 81 08/22/17 17:52 98 21 08/22/17 16:00 97.7 70 18 110/64 (79) 98 08/22/17 15:13 18 08/22/17 11:51 97.3 63 18 110/75 (87) 98 08/22/17 09:40 98 I/O 08/22/17 08/22/17 08/22/17 08/23/17 08/23/17 08/23/17 07:00 15:00 23:00 07:00 15:00 23:00 Intake Total 960 ml 2074 ml 942 ml 740 ml Balance 960 ml 2074 ml 942 ml 740 ml Intake Oral 960 ml 600 ml 480 ml IV Total 1474 ml 942 ml 260 ml # Voids 4 4 1 # Bowel Movements 0 0 0 Result Diagram: 08/22/17 0648 08/22/17 1636 Objective Remarks GENERAL: This is a well-nourished, well-developed patient siting up in bed. tremor appreciated on exam, chronic for pt. CARDIOVASCULAR: Normal S1 and S2. Regular rate and rhythm without murmurs, gallops, or rubs. RESPIRATORY: Good air movement bilaterally, slight wheezing noted. No cough. GASTROINTESTINAL: Abdomen soft. Tender to palpation in the epigastric region. No palpable masses. No guarding. MUSCULOSKELETAL: Extremities without clubbing, cyanosis, or edema. NEUROLOGICAL: Oriented to person and place and time. Awake and alert. Motor and sensory grossly within normal limits. Normal speech. A/P Assessment and Plan 42-year-old male with history of chronic pancreatitis secondary to alcoholism, diabetes and chronic hypokalemia presenting to the ED with 2 week history of progressive nausea/vomiting and abdominal pain consistent with prior flares of pancreatitis. Patient also presenting with tremors and is concerned about alcohol withdrawal. Presenting with marked hypokalemia as well as hyponatremia. Admitting to inpatient for further management Discharge Planning Discharge pending patient's improvement in po intake and normalization of electrolytes. Likely possible discharge today. Problem List: (1) Acute alcoholic pancreatitis ICD Codes: K85.2 - Alcohol-induced pancreatitis Status: Resolved Plan: Presenting with 2 week history of progressively worsening nausea/ vomiting and epigastric pain that radiates to the back. Pain has improved but still present. Suspecting acute on chronic pancreatitis, patient describes pain is consistent with prior pancreatitis flares Has been drinking 3 large glasses of vodka per day, last drink night prior to admission CT scan on admission showing calcification head of the pancreas with minimal edema Lipase on admission 230, improved to 83 on 08/15 [place] criteria of 1 LDH 354 Received 2 L bolus of normal saline in the ED N/V improved, diet advance to regular diet Decrease IV fluids to maintenance. [place] medication switched to po. [place] po per pain scale. Dilaudid 1 mg IV for break through pain Zofran 4 mg as needed for nausea Patient has several electrolyte abnormalities as described below. Continuous telemetry (2) Hypokalemia ICD Codes: E87.6 - Hypokalemia Status: Acute Plan: Patient with a known history of chronic hypokalemia Potassium 1.9 on admission, has been as low as 2.1 in October 2016 on chart review K- 2.6 yesterday morning but increase to 3.0 on repeat, Phosphorus 2.4-->1.6, Magnesium improved from 1.5-->1.1, repleting with IV and by mouth magnesium 400 mg daily 40 mEq potassium p.o. twice daily -Given 30mmol KPhos IV overnight EKG showing no arrhythmia Continuous telemetry -f/u am BMP, mag, and phosp (3) Alcohol withdrawal ICD Codes: F10.239 - Alcohol withdrawal syndrome Status: Acute Plan: Patient with a known history of alcohol abuse Currently drinking 3 glasses of vodka per day Presenting with tremors, no tremors noted on exam, AAO 3 Known history of seizures from withdrawal 1, has been intubated in the past Ethyl alcohol level of 110 on admission [facility] protocol ordered (4) Transaminitis ICD Codes: R74.0 - Nonspecific elevation of levels of transaminase and lactic acid dehydrogenase [LDH] Plan: Elevated liver enzymes on admission, now improving AST 194-->70 ALT 91-->39 Suspecting chronic liver disease secondary to alcoholism Had discussion with patient regarding worsening liver function the setting of chronic alcohol use. Patient has been a member of AA in the past, expresses desire to abstain from alcohol use after discharge (5) Diabetes ICD Codes: E11.9 - Type 2 diabetes mellitus without complications Plan: Patient with known history of diabetes Takes metformin and Glimepiride as well as occasional Novolin use Hemoglobin A1c 9.1 BG this am 180 Holding home oral medications, low-dose sliding scale and Accu-Cheks (6) DVT prophylaxis ICD Codes: Z79.01 - DVT prophylaxis Status: Acute Plan: Fluids: 110mls/he Electrolyte: replete as needed Nutrition: diabetic diet, Creon supplements added to aid with digestion DVT ppx: Lovenox 40mg daily Zoya Gant MD, R1 Aug 23, 2017 09:32
[2017-08-23 11:29] VITALS: BP 101/67; PULSE 99; RESP 19; TEMP 97.4; O2SAT 98
[2017-08-23 11:52] LABS: ALBUMIN 2.1 GM/DL (3.4-5.0); ALT (GPT) 29 U/L (12-78); AST (GOT) 60 U/L (15-37); BICARBONATE 27.8 MEQ/L (21.0-32.0); BLOOD UREA NITROGEN 5 MG/DL (7-18); CALCIUM 7.8 MG/DL (8.5-10.1); CHLORIDE 99 MEQ/L (98-107); CREATININE 0.44 MG/DL (0.60-1.30); GLOMERULAR FILTRATION RATE 210 ML/MIN (>89); GLUCOSE,RANDOM 196 MG/DL (74-106); SODIUM (NA) 136 MEQ/L (136-145)
[2017-08-23 11:54] LABS: ALKALINE PHOSPHATASE 165 U/L (45-117); TOTAL BILIRUBIN ADULT 8.9 MG/DL (0.2-1.0); TOTAL PROTEIN 5.4 GM/DL (6.4-8.2)
[2017-08-23] MEDS ORDERED: VITA1000 PO (15:05)
[2017-08-23] MEDS ORDERED: CREON12 PO (15:05)
[2017-08-23] MEDS ORDERED: PROT40TA PO (15:05)
[2017-08-23] MEDS ORDERED: HYDR-3516 PO (15:05)
[2017-08-23] MEDS ORDERED: CYAN100025 SL (15:05)
[2017-08-23] MEDS ORDERED: MULTTAB67 PO (15:05)
[2017-08-23] MEDS ORDERED: POTA20TA5 PO (15:05)
--- NOTE | 2017-08-23 15:07 | HHI.DCPOC ---
Discharge Care Plan Diagnosis: (1) Pancreatitis (2) Diabetes (3) Transaminitis (4) Acute alcoholic pancreatitis (5) Hypophosphatemia (6) Hypomagnesemia (7) Hyponatremia (8) Hypokalemia Goals to Promote Your Health * To prevent worsening of your condition and complications * To maintain your health at the optimal level Directions to Meet Your Goals Take your medications as prescribed Follow your dietary instruction Follow activity as directed Keep your appointments as scheduled Take your immunizations and boosters as scheduled If your symptoms worsen call your PCP, if no PCP go to Urgent Care Center or Emergency Room Smoking is Dangerous to Your Health. Avoid second hand smoke Call the 24-hour hour crisis hotline for domestic abuse at Zoya Gant MD, R1 Aug 23, 2017 15:07
--- NOTE | 2017-08-23 15:10 | HHI.DS ---
Discharge Summary Admission Date Aug 17, 2017 at 13:53 Discharge Date: Aug 23, 2017 Admitting Diagnosis chronic pancreatitis, hypokalemia, hyponatremia (1) Acute alcoholic pancreatitis Plan: Presenting with 2 week history of progressively worsening nausea/ vomiting and epigastric pain that radiates to the back. Pain has improved but still present. Suspecting acute on chronic pancreatitis, patient describes pain is consistent with prior pancreatitis flares Has been drinking 3 large glasses of vodka per day, last drink night prior to admission CT scan on admission showing calcification head of the pancreas with minimal edema Lipase on admission 230, improved to 83 on 08/15 [place] criteria of 1 LDH 354 Received 2 L bolus of normal saline in the ED N/V improved, diet advance to regular diet Decrease IV fluids to maintenance. [place] medication switched to po. [place] po per pain scale. Dilaudid 1 mg IV for break through pain Zofran 4 mg as needed for nausea Patient has several electrolyte abnormalities as described below. Continuous telemetry ICD Codes: K85.2 - Alcohol-induced pancreatitis Status: Resolved (2) Hypokalemia Plan: Patient with a known history of chronic hypokalemia Potassium 1.9 on admission, has been as low as 2.1 in October 2016 on chart review K- 2.6 yesterday morning but increase to 3.0 on repeat, Phosphorus 2.4-->1.6, Magnesium improved from 1.5-->1.1, repleting with IV and by mouth magnesium 400 mg daily 40 mEq potassium p.o. twice daily -Given 30mmol KPhos IV overnight EKG showing no arrhythmia Continuous telemetry -f/u am BMP, mag, and phosp ICD Codes: E87.6 - Hypokalemia Status: Acute (3) Alcohol withdrawal Plan: Patient with a known history of alcohol abuse Currently drinking 3 glasses of vodka per day Presenting with tremors, no tremors noted on exam, AAO 3 Known history of seizures from withdrawal 1, has been intubated in the past Ethyl alcohol level of 110 on admission [facility] protocol ordered ICD Codes: F10.239 - Alcohol withdrawal syndrome Status: Acute (4) Transaminitis Plan: Elevated liver enzymes on admission, now improving AST 194-->70 ALT 91-->39 Suspecting chronic liver disease secondary to alcoholism Had discussion with patient regarding worsening liver function the setting of chronic alcohol use. Patient has been a member of AA in the past, expresses desire to abstain from alcohol use after discharge ICD Codes: R74.0 - Nonspecific elevation of levels of transaminase and lactic acid dehydrogenase [LDH] (5) Diabetes Plan: Patient with known history of diabetes Takes metformin and Glimepiride as well as occasional Novolin use Hemoglobin A1c 9.1 BG this am 180 Holding home oral medications, low-dose sliding scale and Accu-Cheks ICD Codes: E11.9 - Type 2 diabetes mellitus without complications (6) DVT prophylaxis Plan: Fluids: 110mls/he Electrolyte: replete as needed Nutrition: diabetic diet, Creon supplements added to aid with digestion DVT ppx: Lovenox 40mg daily ICD Codes: Z79.01 - DVT prophylaxis Status: Acute Brief History 42 yo presenting to ER complaining of vomiting and abd pain for last 2 weeks. Started two weeks ago. Denies binge drinking at that time (states he drinks 3 tall glasses of vodka per day - last drink day prior to admission). Initially vomiting 2-3 times per starting 2 weeks ago but over the last several days he has been vomiting 15+ times per day. Denies it being bloody, no coffee-ground appearance, states it has been mainly been green. He has tried eating soup but otherwise has had decreased appetite. Hasn't eaten in several days. Describes abdominal pain as sharp (8 out of 10) across the epigastric portion of his abd and radiating to his back. Progressively worsening over last several days - states it feels similar to prior pancreatitis flares. Denies diarrhea, bloody stools but describes it as whitish in appearance. +Diaphoresis, tremors ( believes he is withdrawing from alcohol). Had seizure from withdrawal once in the past - has been intubated before. CBC/BMP: 08/22/17 0648 08/23/17 1044 Significant Findings Laboratory Tests Test 08/20/17 21:40 08/21/17 04:15 08/21/17 06:45 08/22/17 06:48 Blood Urea Nitrogen 2 MG/DL (7-18) 3 MG/DL (7-18) 2 MG/DL (7-18) Creatinine 0.58 MG/DL (0.60-1.30) 0.51 MG/DL (0.60-1.30) Total Protein 5.7 GM/DL (6.4-8.2) Calcium Level 7.4 MG/DL (8.5-10.1) 7.2 MG/DL (8.5-10.1) 8.1 MG/DL (8.5-10.1) Phosphorus Level 2.2 MG/DL (2.5-4.9) 2.4 MG/DL (2.5-4.9) Magnesium Level 1.3 MG/DL (1.5-2.5) 1.1 MG/DL (1.5-2.5) Potassium Level 2.7 MEQ/L (3.5-5.1) 2.6 MEQ/L (3.5-5.1) Chloride Level 97 MEQ/L (98-107) 97 MEQ/L (98-107) 94 MEQ/L (98-107) Protein Corrected Calcium 8.2 MG/DL (8.5-10.1) 7.6 MG/DL (8.5-10.1) Random Glucose 168 MG/DL (74-106) 124 MG/DL (74-106) Red Blood Count 2.93 MIL/MM3 (4.50-5.90) 3.24 MIL/MM3 (4.50-5.90) Hemoglobin 10.3 GM/DL (13.0-17.0) 11.6 GM/DL (13.0-17.0) Hematocrit 30.2 % (39.0-51.0) 34.4 % (39.0-51.0) Mean Corpuscular Volume 103.0 FL (80.0-100.0) 106.0 FL (80.0-100.0) Mean Corpuscular Hemoglobin 35.1 PG (27.0-34.0) 35.7 PG (27.0-34.0) Monocytes % 13 % (0-8) Albumin 2.6 GM/DL (3.4-5.0) Alkaline Phosphatase 205 U/L (45-117) Aspartate Amino Transf (AST/SGOT) 70 U/L (15-37) Total Bilirubin 10.1 MG/DL (0.2-1.0) Sodium Level 135 MEQ/L (136-145) Test 08/22/17 16:36 08/23/17 10:44 Blood Urea Nitrogen 3 MG/DL (7-18) 5 MG/DL (7-18) Creatinine 0.52 MG/DL (0.60-1.30) 0.44 MG/DL (0.60-1.30) Random Glucose 194 MG/DL (74-106) 196 MG/DL (74-106) Calcium Level 8.0 MG/DL (8.5-10.1) 7.8 MG/DL (8.5-10.1) Phosphorus Level 1.6 MG/DL (2.5-4.9) Magnesium Level 1.1 MG/DL (1.5-2.5) Sodium Level 134 MEQ/L (136-145) Potassium Level 3.0 MEQ/L (3.5-5.1) 3.2 MEQ/L (3.5-5.1) Total Protein 5.4 GM/DL (6.4-8.2) Albumin 2.1 GM/DL (3.4-5.0) Alkaline Phosphatase 165 U/L (45-117) Aspartate Amino Transf (AST/SGOT) 60 U/L (15-37) Total Bilirubin 8.9 MG/DL (0.2-1.0) PE at Discharge GENERAL: This is a well-nourished, well-developed patient siting up in bed. tremor appreciated on exam, chronic for pt. CARDIOVASCULAR: Normal S1 and S2. Regular rate and rhythm without murmurs, gallops, or rubs. RESPIRATORY: Good air movement bilaterally, slight wheezing noted. No cough. GASTROINTESTINAL: Abdomen soft. Tender to palpation in the epigastric region. No palpable masses. No guarding. MUSCULOSKELETAL: Extremities without clubbing, cyanosis, or edema. NEUROLOGICAL: Oriented to person and place and time. Awake and alert. Motor and sensory grossly within normal limits. Normal speech. Pt Condition on Discharge: Stable Discharge Disposition: Discharge Home Discharge Instructions DIET: Follow Instructions for: Diabetic Diet Activities you can perform: Regular-No Restrictions Zoya Gant MD, R1 Aug 23, 2017 15:10
[2017-08-23 15:33] VITALS: BP 104/73; PULSE 77; RESP 19; TEMP 97.8; O2SAT 98
== END 2017-08-23 16:39 | disposition home or self-care (01) | DRG 640 ==
LOC: NEPE 09:58 → NEDA 13:53 → N06A 18:29
PROVIDERS: ADMIT Family Medicine; ATTEND Family Medicine
DX: E87.1 Hypo-osmolality and hyponatremia (principal); K85.20 Alcohol induced acute pancreatitis without necrosis or infection; K70.9 Alcoholic liver disease, unspecified; E83.42 Hypomagnesemia; K86.0 Alcohol-induced chronic pancreatitis; E83.39 Other disorders of phosphorus metabolism; F10.239 Alcohol dependence with withdrawal, unspecified; E87.6 Hypokalemia; I10 Essential (primary) hypertension; E11.9 Type 2 diabetes mellitus without complications; K21.9 Gastro-esophageal reflux disease without esophagitis; J45.909 Unspecified asthma, uncomplicated; F32.9 Major depressive disorder, single episode, unspecified; Y90.5 Blood alcohol level of 100-119 mg/100 ml; Z72.0 Tobacco use; Z79.4 Long term (current) use of insulin
CPT/HCPCS: 74177; 80048; 80053; 80307; 81001; 82010; 82550; 82948; 83036; 83615; 83690; 83735; 84100; 84155; 84478; 84484; 85007; 85025; 85027; 85610; 85730; 86140; 93005; 94150; 96374; 96375; 96376; C9113; J1170; J1650; J1815; J1885; J2060; J2405; J3411; J3475; J3480; J7030; J7040; J7050; J7120; Q9967

== ENCOUNTER 2017-11-06 11:14 | Inpatient (IN) | payer OTHER ==
[~2017-11-06] VITALS: Ht 172.7 cm; Wt 73.4 kg
[2017-11-06] VITALS (7 sets, daily range): BP systolic 108–116; BP diastolic 70–77; PULSE 80–116; RESP 14–20; TEMP 97.7; O2SAT 97–100
[~2017-11-06 11:14] MED LIST changes: +CREON12 PO; +GLIM1TAB PO; +HYDR-3516 PO; -METO25TA3 PO; +PROT40TA PO
[2017-11-06] MEDS ORDERED: MORPHINE SULFATE 4 MG/ML INJ IV PUSH ONE ×2 (11:45→16:15)
[2017-11-06] MEDS ORDERED: ONDANSETRON HCL 4 MG/2 ML VIAL IVP ONE (11:45)
[2017-11-06] MEDS ORDERED: SODIUM CHLORIDE 0.9% FLUSH 10 ML FLUSH IV FLUSH PRN ×2 (11:45→16:15)
--- NOTE | 2017-11-06 11:45 | PD ---
HPI Chief Complaint: Abdominal Pain Time Seen by Provider: 11:27 Travel History International Travel<30 days: No Contact w/Intl Traveler<30days: No Traveled to known affect area: No History of Present Illness HPI 42-year-old male presents to the emergency department for evaluation of epigastric abdominal pain with a history of pancreatitis. Patient is here with his father at bedside. He states he normally drinks 5 alcoholic drinks daily. His father clarifies and states that he drinks over half a large thing of vodka daily. His strengths are mostly vodka with a little bit of omid lucinda. Patient states his last drink was 2 days ago. Patient recently saw a Dr. Ruth at [facility] who was going to do an EGD outpatient, but has not been able to do it yet. Patient is jaundiced on my exam. He states this is new as of a couple weeks ago. He reports intractable vomiting unable to keep any food down for the past week. Patient states the pain is currently 10/10, aching and throbbing without radiation. He denies any previous abdominal surgeries. He does have history of pancreatitis and diabetes. No exacerbating or alleviating symptoms. Moderate severity. PFSH Past Medical History Arthritis: No Asthma: Yes Autoimmune Disease: No Anxiety: Yes Depression: Yes Heart Rhythm Problems: No Cancer: No Cardiovascular Problems: Yes High Cholesterol: Yes Chest Pain: Yes Congestive Heart Failure: No Cirrhosis: Yes (possible) COPD: No Cerebrovascular Accident: No Diabetes: Yes Patient Takes Glucophage: No Diminished Hearing: No Endocrine: Yes Gastrointestinal Disorders: Yes (pancreatitis) GERD: Yes Genitourinary: No Hiatal Hernia: No Hypertension: Yes Immune Disorder: No Implanted Vascular Access Dvce: No Kidney Stones: No Musculoskeletal: Yes (RIGHT LEG/TOES BROKEN) Neurologic: No Psychiatric: Yes Reproductive: No Respiratory: Yes (ASTHMA ) Immunizations Current: Yes Migraines: No Pancreatitis: Yes Renal Failure: No Seizures: No Sleep Apnea: No Thyroid Disease: No Ulcer: No Past Surgical History Abdominal Surgery: No AICD: No Appendectomy: Yes Arteriovenous Shunt: No Cardiac Surgery: No Ear Surgery: No Endocrine Surgery: No Eye Surgery: No Genitourinary Surgery: No Gynecologic Surgery: No Insulin Pump: No Joint Replacement: No Oral Surgery: Yes (TONSILLECTOMY) Pacemaker: No Thoracic Surgery: No Tonsillectomy: Yes Other Surgery: Yes (appendectomy) Social History Alcohol Use: Yes (375ml vodka daily ) Tobacco Use: Yes (1/2 PPD) Substance Use: Yes (ALCOHOL) Allergies-Medications (Allergen,Severity, Reaction): Coded Allergies: No Known Allergies (Unverified Allergy, Unknown, 11/06/17) Reported Meds & Prescriptions Reported Meds & Active Scripts Active Protonix (Pantoprazole Sodium) 40 Mg Tab 40 Mg PO DAILY Creon (Amylase/Lipase/Protease) 12,000-38,000-60,000 Units Cap 1 Cap PO TID B-12 (Cyanocobalamin) 1,000 Mcg Subl 1,000 Mcg SL DAILY Vitamin D-1000 (Cholecalciferol) 1,000 Unit Tab 1,000 Units PO DAILY Multiple Vitamin 1 Tab 1 Tab PO DAILY Reported Paroxetine (Paroxetine HCl) 40 Mg Tab 40 Mg PO DAILY Metoprolol Succinate ER 24 HR (Metoprolol Succinate) 25 Mg Tab 25 Mg PO DAILY Levemir Flextouch Pen Inj (Insulin Detemir) 300 unit/3 ML Pen 25 Units SQ DAILY Chlordiazepoxide HCl 10 Mg Capsule 10 Mg PO QID Novolin R Inj (Insulin Human Regular) 1,000 Unit/10 Ml Vial 0 SQ DIRECTED Sliding Scale As Directed. Magnesium Oxide 500 Mg Tab 1,000 Mg PO DAILY Review of Systems Except as stated in HPI: all other systems reviewed are Neg Physical Exam Narrative GENERAL: Well-nourished, well-developed male patient, afebrile. SKIN: Focused skin assessment warm/dry. Patient is jaundiced on exam HEAD: Normocephalic. Atraumatic. EYES: Bilateral conjunctiva are yellow. No injection or drainage. NECK: Supple, trachea midline. No JVD or lymphadenopathy. CARDIOVASCULAR: Regular rate and rhythm without murmurs, gallops, or rubs. RESPIRATORY: Breath sounds equal bilaterally. No accessory muscle use. Lung sounds are clear to auscultation peer GASTROINTESTINAL: Abdomen soft and nondistended. Patient has epigastric tenderness to palpation. MUSCULOSKELETAL: No cyanosis, or edema. BACK: Nontender without obvious deformity. No CVA tenderness. Data Data Last Documented VS Vital Signs Date Time Temp Pulse Resp B/P (MAP) Pulse Ox O2 Delivery O2 Flow Rate FiO2 11/06/17 14:00 80 18 113/77 (89) 100 Room Air 11/06/17 11:17 97.7 Orders Orders Complete Blood Count With Diff (11/06/17 11:37) Comprehensive Metabolic Panel (11/06/17 11:37) Lipase (11/06/17 11:37) Prothrombin Time / Inr (Pt) (11/06/17 11:37) Act Partial Throm Time (Ptt) (11/06/17 11:37) Urinalysis - C+S If Indicated (11/06/17 11:37) Ct Abd/Pel W Iv Contrast(Rout) (11/06/17 11:37) Iv Access Insert/Monitor (11/06/17 11:37) Ecg Monitoring (11/06/17 11:37) Oximetry (11/06/17 11:37) Morphine Inj (Morphine Inj) (11/06/17 11:45) Ondansetron Inj (Zofran Inj) (11/06/17 11:45) Sodium Chlor 0.9% 1000 Ml Inj (Ns 1000 M (11/06/17 11:37) Sodium Chloride 0.9% Flush (Ns Flush) (11/06/17 11:45) Electrocardiogram (11/06/17 11:37) Blood Glucose (11/06/17 11:37) Creatine Kinase (Cpk) (11/06/17 11:37) Troponin I (11/06/17 11:37) Alcohol (Ethanol) (11/06/17 11:37) Ammonia (11/06/17 11:59) Magnesium (Mg) (11/06/17 12:04) Potassium Chlor 20 Meq Premix (Kcl 20 Me (11/06/17 13:15) Potassium Chloride (Kcl) (11/06/17 13:15) Sodium Chlor 0.9% 1000 Ml Inj (Ns 1000 M (11/06/17 13:15) Magnesium Sulfate 1 Gm Premix (Magnesium (11/06/17 13:15) Metoclopramide Inj (Reglan Inj) (11/06/17 14:45) Iohexol 350 Inj (Omnipaque 350 Inj) (11/06/17 15:00) Admit Order (Ed Use Only) (11/06/17 16:00) Labs Laboratory Tests Test 11/06/17 12:04 11/06/17 12:10 11/06/17 12:36 White Blood Count 18.1 TH/MM3 Red Blood Count 3.49 MIL/MM3 Hemoglobin 11.6 GM/DL Hematocrit 33.3 % Mean Corpuscular Volume 95.5 FL Mean Corpuscular Hemoglobin 33.1 PG Mean Corpuscular Hemoglobin Concent 34.7 % Red Cell Distribution Width 13.0 % Platelet Count 208 TH/MM3 Mean Platelet Volume 8.7 FL Neutrophils (%) (Auto) 87.5 % Lymphocytes (%) (Auto) 2.7 % Monocytes (%) (Auto) 9.2 % Eosinophils (%) (Auto) 0.1 % Basophils (%) (Auto) 0.5 % Neutrophils # (Auto) 15.8 TH/MM3 Lymphocytes # (Auto) 0.5 TH/MM3 Monocytes # (Auto) 1.7 TH/MM3 Eosinophils # (Auto) 0.0 TH/MM3 Basophils # (Auto) 0.1 TH/MM3 CBC Comment DIFF FINAL Differential Comment Prothrombin Time 24.8 SEC Prothromb Time International Ratio 2.5 RATIO Activated Partial Thromboplast Time 34.8 SEC Blood Urea Nitrogen 19 MG/DL Creatinine 1.15 MG/DL Random Glucose 295 MG/DL Total Protein 7.7 GM/DL Albumin 3.2 GM/DL Calcium Level 7.9 MG/DL Magnesium Level 0.9 MG/DL Alkaline Phosphatase 264 U/L Aspartate Amino Transf (AST/SGOT) 126 U/L Alanine Aminotransferase (ALT/SGPT) 54 U/L Total Bilirubin 10.1 MG/DL Sodium Level 123 MEQ/L Potassium Level 1.8 MEQ/L Chloride Level 63 MEQ/L Carbon Dioxide Level 16.5 MEQ/L Anion Gap 44 MEQ/L Estimat Glomerular Filtration Rate 69 ML/MIN Total Creatine Kinase 36 U/L Troponin I LESS THAN 0.02 NG/ML Lipase 161 U/L Ethyl Alcohol Level LESS THAN 3 MG/DL Ammonia 69 MCMOL/L Urine Color DARK-YELLOW Urine Turbidity HAZY Urine pH 6.5 Urine Specific Waves 1.021 Urine Protein 300 mg/dL Urine Glucose (UA) 70 mg/dL Urine Ketones 150 mg/dL Urine Occult Blood SMALL Urine Nitrite NEG Urine Bilirubin LARGE Urine Urobilinogen 8.0 MG/DL Urine Leukocyte Esterase NEG Urine RBC 2 /hpf Urine WBC 5 /hpf Urine Squamous Epithelial Cells <1 /hpf Urine Hyaline Casts 157 /lpf Urine Granular Casts 5 /lpf Urine Mucus FEW /lpf Microscopic Urinalysis Comment CULT NOT INDICATED MDM Medical Decision Making Medical Screen Exam Complete: Yes Emergency Medical Condition: Yes Medical Record Reviewed: Yes Interpretation(s) Last Impressions Abdomen/Pelvis CT 11/06/17 1137 Signed Impressions: Service Date/Time: Monday, November 06, 2017 14:50 - CONCLUSION: 1. Findings of chronic pancreatitis with calcifications in the head and uncinate process, dilation of the pancreatic duct and marked atrophy of the mid body and tail. 2. Diffuse hepatic fatty infiltration. No focal mass lesions. 3. Findings of portal hypertension with a portosystemic shunt emanating from the origin of the portal vein and draining into the left renal vein. 4. Cholelithiasis Merlin Monteiro MD Differential Diagnosis Acute pancreatitis versus electrolyte abnormality versus acute liver failure versus alcoholism Narrative Course 42-year-old male presents to the emergency department for evaluation of epigastric abdominal pain. He is jaundiced on exam with history of pancreatitis and alcoholism.Is also slightly tremulous on exam concerning for alcohol withdrawal. EKG, CBC, CMP, lipase, CK, troponin, magnesium, PTT, PT/INR , alcohol level are ordered and pending. CT abdomen/pelvis with IV contrast is ordered and pending. Patient is given normal saline 1 L IV bolus, morphine 4 mg IV, Zofran 4 mg IV EKG shows sinus rhythm with occasional PVCs, heart rate 89. CBC shows leukocytosis of 18.1. CMP shows hyponatremia 123, hypokalemia 1.8, anion gap 44 , hyperglycemia 295, bilirubin 10.1. Lipase is 161. Ammonia level is 69. CK is 36. Troponin is less than 0.02. Magnesium is 0.9. PT is 24.8, INR 2.5, PTT 34.8. Alcohol level is less than 3. CT abdomen/pelvis shows findings of chronic pancreatitis with calcifications in the head and uncinate process, dilation of the pancreatic duct and marked atrophy of the mid body and tail. Diffuse hepatic fatty infiltration. No focal mass lesions. Findings of portal hypertension with a further systemic shunt mandating from the original the portal vein and draining into the left renal veins. Cholelithiasis. Patient is given potassium 20 mEq IV and 40 mg once p.o. He is given magnesium 1 g IV. He is given second liter IV normal saline bolus. Dr. Braun, hospitalist, accepted admission. Diagnosis Primary Impression: Acute liver failure Qualified Codes: K72.00 - Acute and subacute hepatic failure without coma Additional Impressions: Hypokalemia Hyponatremia Leukocytosis Qualified Codes: D72.829 - Elevated white blood cell count, unspecified Alcohol withdrawal Qualified Codes: F10.230 - Alcohol dependence with withdrawal, uncomplicated Chronic pancreatitis Qualified Codes: K86.0 - Alcohol-induced chronic pancreatitis Admitting Information Admitting Physician Requests: Maame Lovelace November 06, 2017 11:45
[2017-11-06] MEDS: SODIUM CHLOR 0.9% 1000 ML INJ 1,000 ML IV SCH ×2 (12:07→13:46)
[2017-11-06] MEDS ORDERED: INSU1INJ5 SQ (12:27)
[2017-11-06] MEDS ORDERED: METO1TAB42 PO (12:27)
[2017-11-06] MEDS ORDERED: PARO40TA3 PO (12:27)
[2017-11-06] MEDS ORDERED: CHLO10CA5 PO (12:27)
[2017-11-06 12:29] LABS: AUTOMATED NEUTROPHIL # 15.8 TH/MM3 (1.8-7.7); BASOPHIL # 0.1 TH/MM3 (0-0.2); BASOPHIL % 0.5 % (0.0-2.0); EOSINOPHIL % 0.1 % (0.0-4.0); HEMATOCRIT 33.3 % (39.0-51.0); HEMOGLOBIN 11.6 GM/DL (13.0-17.0); LYMPH % 2.7 % (9.0-44.0); LYMPHOCYTE # 0.5 TH/MM3 (1.0-4.8); MEAN CELL VOLUME 95.5 FL (80.0-100.0); MEAN CORPUSCULAR HEMOGLOBIN 33.1 PG (27.0-34.0); MEAN CORPUSCULAR HGB CONC 34.7 % (32.0-36.0); MEAN PLATELET VOLUME 8.7 FL (7.0-11.0); MONO % 9.2 % (0.0-8.0); MONOCYTE # 1.7 TH/MM3 (0-0.9); NEUT % 87.5 % (16.0-70.0); PLATELET COUNT 208 TH/MM3 (150-450); RED BLOOD COUNT 3.49 MIL/MM3 (4.50-5.90); WHITE BLOOD COUNT 18.1 TH/MM3 (4.0-11.0)
[2017-11-06 12:43] LABS: INTERNATIONAL NORMALIZED RATIO 2.5 RATIO; PROTHROMBIN TIME - PATIENT 24.8 SEC (9.8-11.6)
[2017-11-06 13:04] LABS: ALBUMIN 3.2 GM/DL (3.4-5.0); ALKALINE PHOSPHATASE 264 U/L (45-117); ALT (GPT) 54 U/L (12-78); AST (GOT) 126 U/L (15-37); BICARBONATE 16.5 MEQ/L (21.0-32.0); BLOOD UREA NITROGEN 19 MG/DL (7-18); CALCIUM 7.9 MG/DL (8.5-10.1); CHLORIDE 63 MEQ/L (98-107); CREATININE 1.15 MG/DL (0.60-1.30); GLOMERULAR FILTRATION RATE 69 ML/MIN (>89); GLUCOSE,RANDOM 295 MG/DL (74-106); MAGNESIUM 0.9 MG/DL (1.5-2.5); TOTAL BILIRUBIN ADULT 10.1 MG/DL (0.2-1.0); TOTAL PROTEIN 7.7 GM/DL (6.4-8.2); TROPONIN I LESS THAN 0.02 NG/ML (0.02-0.05)
[2017-11-06 13:05] LABS: BILIRUBIN, URINE LARGE (NEG); BLOOD, URINE SMALL (NEG); GLUCOSE,URINE 70 mg/dL (NEG); HYALINE CAST, URINE 157 /lpf (RARE); KETONE, URINE 150 mg/dL (NEG); MUCUS URINE FEW /lpf (OCC); NITRITE,URINE NEG (NEG); PH, URINE 6.5 (5.0-8.5); SQUAMOUS EPITHELIAL CELL URINE <1 /hpf (0-5); URINE COLOR DARK-YELLOW (YELLW/STRAW); URINE LEUKOCYTE ESTERASE NEG (NEG)
[2017-11-06 13:09] LABS: SODIUM (NA) 123 MEQ/L (136-145)
[2017-11-06] MEDS ORDERED: POTASSIUM CHLOR 20 MEQ PREMIX 100 ML IV ONE (13:15)
[2017-11-06] MEDS ORDERED: POTASSIUM CHLORIDE 20 MEQ CONTROLLED RELEASE TAB PO ONE (13:15)
[2017-11-06] MEDS ORDERED: SODIUM CHLOR 0.9% 1000 ML INJ 1,000 ML IV ONE (13:15)
[2017-11-06] MEDS ORDERED: MAGNESIUM SULFATE 1 GM PREMIX 100 ML IV ONE (13:15)
[2017-11-06] MEDS ORDERED: METOCLOPRAMIDE HCL 10 MG/2 ML VIAL IV PUSH ONE (14:45)
[2017-11-06] MEDS ORDERED: IOHEXOL 350 MG/ML 10 ML VIAL (for RAD DIAG) IVCONTRAST ONE (15:00)
--- NOTE | 2017-11-06 15:37 | PD ---
Physical Exam Narrative GENERAL: Ill-appearing 42-year-old male SKIN: Focused skin assessment warm/dry. Jaundiced HEAD: Atraumatic. Normocephalic. EYES: Pupils equal and round. No scleral icterus. No injection or drainage. ENT: No nasal bleeding or discharge. Mucous membranes pink and moist. NECK: Trachea midline. CARDIOVASCULAR: Regular rate and rhythm. RESPIRATORY: No accessory muscle use. No increased effort MUSCULOSKELETAL: No obvious deformities. No clubbing. No cyanosis. NEUROLOGICAL: Awake and alert. Motor grossly within normal limits. Normal speech. Data Data Last Documented VS Vital Signs Date Time Temp Pulse Resp B/P (MAP) Pulse Ox O2 Delivery O2 Flow Rate FiO2 11/06/17 13:41 90 18 113/77 (89) 99 Room Air 11/06/17 11:17 97.7 Orders Orders Complete Blood Count With Diff (11/06/17 11:37) Comprehensive Metabolic Panel (11/06/17 11:37) Lipase (11/06/17 11:37) Prothrombin Time / Inr (Pt) (11/06/17 11:37) Act Partial Throm Time (Ptt) (11/06/17 11:37) Urinalysis - C+S If Indicated (11/06/17 11:37) Ct Abd/Pel W Iv Contrast(Rout) (11/06/17 11:37) Iv Access Insert/Monitor (11/06/17 11:37) Ecg Monitoring (11/06/17 11:37) Oximetry (11/06/17 11:37) Morphine Inj (Morphine Inj) (11/06/17 11:45) Ondansetron Inj (Zofran Inj) (11/06/17 11:45) Sodium Chlor 0.9% 1000 Ml Inj (Ns 1000 M (11/06/17 11:37) Sodium Chloride 0.9% Flush (Ns Flush) (11/06/17 11:45) Electrocardiogram (11/06/17 11:37) Blood Glucose (11/06/17 11:37) Creatine Kinase (Cpk) (11/06/17 11:37) Troponin I (11/06/17 11:37) Alcohol (Ethanol) (11/06/17 11:37) Ammonia (11/06/17 11:59) Magnesium (Mg) (11/06/17 12:04) Potassium Chlor 20 Meq Premix (Kcl 20 Me (11/06/17 13:15) Potassium Chloride (Kcl) (11/06/17 13:15) Sodium Chlor 0.9% 1000 Ml Inj (Ns 1000 M (11/06/17 13:15) Magnesium Sulfate 1 Gm Premix (Magnesium (11/06/17 13:15) Metoclopramide Inj (Reglan Inj) (11/06/17 14:45) Iohexol 350 Inj (Omnipaque 350 Inj) (11/06/17 15:00) Labs Laboratory Tests Test 11/06/17 12:04 11/06/17 12:10 11/06/17 12:36 White Blood Count 18.1 TH/MM3 Red Blood Count 3.49 MIL/MM3 Hemoglobin 11.6 GM/DL Hematocrit 33.3 % Mean Corpuscular Volume 95.5 FL Mean Corpuscular Hemoglobin 33.1 PG Mean Corpuscular Hemoglobin Concent 34.7 % Red Cell Distribution Width 13.0 % Platelet Count 208 TH/MM3 Mean Platelet Volume 8.7 FL Neutrophils (%) (Auto) 87.5 % Lymphocytes (%) (Auto) 2.7 % Monocytes (%) (Auto) 9.2 % Eosinophils (%) (Auto) 0.1 % Basophils (%) (Auto) 0.5 % Neutrophils # (Auto) 15.8 TH/MM3 Lymphocytes # (Auto) 0.5 TH/MM3 Monocytes # (Auto) 1.7 TH/MM3 Eosinophils # (Auto) 0.0 TH/MM3 Basophils # (Auto) 0.1 TH/MM3 CBC Comment DIFF FINAL Differential Comment Prothrombin Time 24.8 SEC Prothromb Time International Ratio 2.5 RATIO Activated Partial Thromboplast Time 34.8 SEC Blood Urea Nitrogen 19 MG/DL Creatinine 1.15 MG/DL Random Glucose 295 MG/DL Total Protein 7.7 GM/DL Albumin 3.2 GM/DL Calcium Level 7.9 MG/DL Magnesium Level 0.9 MG/DL Alkaline Phosphatase 264 U/L Aspartate Amino Transf (AST/SGOT) 126 U/L Alanine Aminotransferase (ALT/SGPT) 54 U/L Total Bilirubin 10.1 MG/DL Sodium Level 123 MEQ/L Potassium Level 1.8 MEQ/L Chloride Level 63 MEQ/L Carbon Dioxide Level 16.5 MEQ/L Anion Gap 44 MEQ/L Estimat Glomerular Filtration Rate 69 ML/MIN Total Creatine Kinase 36 U/L Troponin I LESS THAN 0.02 NG/ML Lipase 161 U/L Ethyl Alcohol Level LESS THAN 3 MG/DL Ammonia 69 MCMOL/L Urine Color DARK-YELLOW Urine Turbidity HAZY Urine pH 6.5 Urine Specific [place] 1.021 Urine Protein 300 mg/dL Urine Glucose (UA) 70 mg/dL Urine Ketones 150 mg/dL Urine Occult Blood SMALL Urine Nitrite NEG Urine Bilirubin LARGE Urine Urobilinogen 8.0 MG/DL Urine Leukocyte Esterase NEG Urine RBC 2 /hpf Urine WBC 5 /hpf Urine Squamous Epithelial Cells <1 /hpf Urine Hyaline Casts 157 /lpf Urine Granular Casts 5 /lpf Urine Mucus FEW /lpf Microscopic Urinalysis Comment CULT NOT INDICATED MDM Supervised Visit with ELVIRA: Yes Interpretation(s) CBC & BMP Diagram 11/06/17 12:04 Total Protein 7.7, Albumin 3.2 L, Calcium Level 7.9 L, Magnesium Level 0.9 L, Alkaline Phosphatase 264 H, Aspartate Amino Transf (AST/SGOT) 126 H, Alanine Aminotransferase (ALT/SGPT) 54, Total Bilirubin 10.1 H Narrative Course I, Dr. roche, have reviewed the advance practice practitioner's documentation and am in agreement, met with the patient face to face, made the diagnosis, and the medical decision making was done by me. *My assessment and Findings: 42-year-old male presents with abdominal pain. He has significant electrolyte abnormality that will need replacement. CT shows no emergent process, will admit for further care Physician Communication Physician Communication [facility] [place] to admit Diagnosis Primary Impression: Hypokalemia Additional Impressions: Hyponatremia Abdominal pain Qualified Codes: R10.9 - Unspecified abdominal pain Admitting Information Admitting Physician Requests: Admit Delfina Roche MD November 06, 2017 15:37
--- NOTE | 2017-11-06 15:42 | RADRPT ---
EXAM DATE/TIME: 11/06/2017 14:50 [place] COMPARISON: CT ABDOMEN & PELVIS W CONTRAST, August 17, 2017, 11:02. INDICATIONS : Patient complains of abdominal pain with vomiting for two days. IV CONTRAST: 75 cc Omnipaque 350 (iohexol) IV ORAL CONTRAST: No oral contrast ingested. RADIATION DOSE: 6.82 CTDIvol (mGy) MEDICAL HISTORY : Hypertension. Pancreatitis. Diabetes mellitus type 1. SURGICAL HISTORY : Appendectomy. ENCOUNTER: Initial ACUITY: 2 days PAIN SCALE: 8/10 LOCATION: abdomen TECHNIQUE: Volumetric scanning of the abdomen and pelvis was performed. Using automated exposure control and ad justment of the mA and/or kV according to patient size, radiation dose was kept as low as reasonably achievable to obtain optimal diagnostic quality images. DICOM format image data is available electro nically for review and comparison. FINDINGS: LOWER LUNGS: The visualized lower lungs are clear. LIVER: Homogeneous, but decreased density without lesion. There is no dilation of the biliary tr ee. A few calcified gallstones in the dependent portion of the gallbladder lumen. SPLEEN: Normal size without lesion. PANCREAS: Calcific changes in the head and uncinate process. Pancreatic tail is severely atrophie d and basically gone. There may be some dilation of the pancreatic duct. No significant peripancreati c inflammatory changes, however. KIDNEYS: Normal in size and shape. There is no mass, stone or hydronephrosis. ADRENAL GLANDS: Within normal limits. VASCULAR: There is no aortic aneurysm. BOWEL/MESENTERY: The stomach, small bowel, and colon demonstrate no acute abnormality. There is no free intraperitoneal air or fluid. ABDOMINAL WALL: Within normal limits. RETROPERITONEUM: There is no lymphadenopathy. Varicosities are seen in the left retroperitoneum e manating from the origin of the portal vein and tracking inferiorly and then looping cephalad to the left renal vein BLADDER: No wall thickening or mass. REPRODUCTIVE: Within normal limits. INGUINAL: There is no lymphadenopathy or hernia. MUSCULOSKELETAL: Within normal limits for patient age. CONCLUSION: 1. Findings of chronic pancreatitis with calcifications in the head and uncinate process, dilation of the pancreatic duct and marked atrophy of the mid body and tail. 2. Diffuse hepatic fatty infiltration. No focal mass lesions. 3. Findings of portal hypertension with a portosystemic shunt emanating from the origin of the portal vein and draining into the left renal vein. 4. Cholelithiasis Merlin Monteiro MD on November 06, 2017 at 15:37 Board Certified Radiologist. This report was verified electronically.
[2017-11-06] MEDS ORDERED: SODIUM CHLOR 0.9% 1000 ML INJ 1,000 ML IV SCH (16:12)
[2017-11-06] MEDS ORDERED: LORazepam 2 MG TAB PO PRN (16:15)
[2017-11-06] MEDS ORDERED: FLUMAZENIL 0.5 MG/5 ML VIAL IV PUSH PRN (16:15)
[2017-11-06] MEDS ORDERED: GLUCAGON 1 MG/ML VIAL OTHER PRN (16:15)
[2017-11-06] MEDS ORDERED: DEXTROSE 50% IN WATER 50 ML VIAL(D50) IV PUSH PRN (16:15)
[2017-11-06] MEDS ORDERED: ONDANSETRON HCL 4 MG/2 ML VIAL IV PUSH PRN (16:15)
[2017-11-06] MEDS ORDERED: LORazepam 2 MG/ML VIAL IV PUSH PRN ×2 (16:15)
[2017-11-06] MEDS ORDERED: POTASSIUM CHLORIDE INJ 30 MEQ in SODIUM CHLOR 0.9% 1000 ML INJ 1,000 ML IV SCH (17:00)
[2017-11-06] MEDS ORDERED: MAGNESIUM SULFATE INJ 4 GM in DEXTROSE 5% IN WATER 100ML INJ 92 ML IV SCH ×2 (17:00)
--- NOTE | 2017-11-06 17:11 | EKG ---
Date Performed: 11/06/2017 Time Performed: 12:36:29 PTAGE: 42 years EKG: Sinus rhythm WITH OCCASIONAL VENTRICULAR PREMATURE COMPLEXES WITH OCCASIONAL SUPRAVENTRICULAR PREMATURE COMPLEXES SEPTAL MYOCARDIAL INFARCTION ABNORMAL ECG PREVIOUS TRACING : 08/20/2017 10.00 DOCTOR: Franco Hennessy Interpretating Date/Time 11/06/2017 17:10:40
[2017-11-06] MEDS: POTASSIUM CHLOR 20 MEQ PREMIX 100 ML IV SCH (17:25)
--- NOTE | 2017-11-06 17:35 | HHI.HP ---
[facility] Tien Wakefield MD Admission Diagnosis Acute liver failure, hypokalemia, hyponatremia, leukocytosis Diagnoses: Chief Complaint: Nausea and vomiting Travel History International Travel<30 Days: No Contact w/Intl Traveler <30 Da: No Traveled to Known Affected Are: No History of Present Illness 42-year-old male alcoholic who presented to the emergency room with complaint of nausea, vomiting, and midepigastric pain. Patient has had recurrent hospital visits due to complications from alcohol. However he continues to drink at least 3 tall glasses of vodka daily. He reports over the past few days he has not been able to tolerate anything by mouth due to persistent nausea and vomiting. Workup in the emergency room indicate acute liver failure and severe electrolyte abnormalities. On my evaluation, the patient still reports some mild midepigastric discomfort. He is asking for ice chips. He is a poor historian and has poor insight into the detrimental effects of alcohol on his health. He denies diarrhea. Last bowel movement was a few days ago. Review of Systems Constitutional: COMPLAINS OF: Fatigue Respiratory: DENIES: Cough, Shortness of breath Cardiovascular: DENIES: Chest pain, Palpitations Gastrointestinal: COMPLAINS OF: Nausea, Vomiting Integumentary: COMPLAINS OF: Abnormal pigmentation (Jaundice) Neurologic: COMPLAINS OF: Poor Balance Past Family Social History Past Medical History Chronic alcohol dependence Chronic pancreatitis secondary to alcoholism Type 2 diabetes Depression Past Surgical History Tonsillectomy Reported Medications Reported Meds & Active Scripts Active Protonix (Pantoprazole Sodium) 40 Mg Tab 40 Mg PO DAILY Creon (Amylase/Lipase/Protease) 12,000-38,000-60,000 Units Cap 1 Cap PO TID B-12 (Cyanocobalamin) 1,000 Mcg Subl 1,000 Mcg SL DAILY Vitamin D-1000 (Cholecalciferol) 1,000 Unit Tab 1,000 Units PO DAILY Multiple Vitamin 1 Tab 1 Tab PO DAILY Reported Paroxetine (Paroxetine HCl) 40 Mg Tab 40 Mg PO DAILY Metoprolol Succinate ER 24 HR (Metoprolol Succinate) 25 Mg Tab 25 Mg PO DAILY Levemir Flextouch Pen Inj (Insulin Detemir) 300 unit/3 ML Pen 25 Units SQ DAILY Chlordiazepoxide HCl 10 Mg Capsule 10 Mg PO QID Novolin R Inj (Insulin Human Regular) 1,000 Unit/10 Ml Vial 0 SQ DIRECTED Sliding Scale As Directed. Magnesium Oxide 500 Mg Tab 1,000 Mg PO DAILY Allergies: Coded Allergies: No Known Allergies (Unverified Allergy, Unknown, 11/06/17) Family History Father has history of diabetes. Social History Alcohol dependence for as long as he can remember. He drinks at least 3 tall glasses of vodka per day. Admits to smoking half a pack of cigarettes per day. Denies illicit drug use. Physical Exam Vital Signs Vital Signs Date Time Temp Pulse Resp B/P (MAP) Pulse Ox O2 Delivery O2 Flow Rate FiO2 11/06/17 17:26 82 20 116/73 (87) 100 Room Air 11/06/17 14:00 80 18 113/77 (89) 100 Room Air 11/06/17 13:41 90 18 113/77 (89) 99 Room Air 11/06/17 12:07 101 18 99 Room Air 11/06/17 11:28 18 11/06/17 11:17 97.7 116 19 114/71 (85) 100 Physical Exam GENERAL: Patient appear older than stated age, somewhat disheveled. SKIN: Jaundice HEAD: Atraumatic. Normocephalic. No temporal or scalp tenderness. EYES: Scleral icterus noted. ENT: Nose without bleeding, purulent drainage or septal hematoma. Airway patent. NECK: Trachea midline. No JVD or lymphadenopathy. Supple, nontender, no meningeal signs. CARDIOVASCULAR: Regular rate and rhythm without murmurs, gallops, or rubs. RESPIRATORY: Clear to auscultation. Breath sounds equal bilaterally. No wheezes , rales, or rhonchi. GASTROINTESTINAL: Abdomen appeared distended. Some midepigastric discomfort. No rebound tenderness. Normal and active bowel sounds. MUSCULOSKELETAL: Extremities without clubbing, cyanosis, or edema. No joint tenderness, effusion, or edema noted. No calf tenderness. Negative Homans sign bilaterally. NEUROLOGICAL: Awake and alert. Cranial nerves II through XII intact. Motor and sensory grossly within normal limits. Five out of 5 muscle strength in all muscle groups. Normal speech. PSYCH: Appear somewhat anxious Laboratory Laboratory Tests Test 11/06/17 12:04 11/06/17 12:10 11/06/17 12:36 White Blood Count 18.1 Red Blood Count 3.49 Hemoglobin 11.6 Hematocrit 33.3 Mean Corpuscular Volume 95.5 Mean Corpuscular Hemoglobin 33.1 Mean Corpuscular Hemoglobin Concent 34.7 Red Cell Distribution Width 13.0 Platelet Count 208 Mean Platelet Volume 8.7 Neutrophils (%) (Auto) 87.5 Lymphocytes (%) (Auto) 2.7 Monocytes (%) (Auto) 9.2 Eosinophils (%) (Auto) 0.1 Basophils (%) (Auto) 0.5 Neutrophils # (Auto) 15.8 Lymphocytes # (Auto) 0.5 Monocytes # (Auto) 1.7 Eosinophils # (Auto) 0.0 Basophils # (Auto) 0.1 CBC Comment DIFF FINAL Differential Comment Prothrombin Time 24.8 Prothromb Time International Ratio 2.5 Activated Partial Thromboplast Time 34.8 Blood Urea Nitrogen 19 Creatinine 1.15 Random Glucose 295 Total Protein 7.7 Albumin 3.2 Calcium Level 7.9 Magnesium Level 0.9 Alkaline Phosphatase 264 Aspartate Amino Transf (AST/SGOT) 126 Alanine Aminotransferase (ALT/SGPT) 54 Total Bilirubin 10.1 Sodium Level 123 Potassium Level 1.8 Chloride Level 63 Carbon Dioxide Level 16.5 Anion Gap 44 Estimat Glomerular Filtration Rate 69 Total Creatine Kinase 36 Troponin I LESS THAN 0.02 Lipase 161 Ethyl Alcohol Level LESS THAN 3 Ammonia 69 Urine Color DARK-YELLOW Urine Turbidity HAZY Urine pH 6.5 Urine Specific [place] 1.021 Urine Protein 300 Urine Glucose (UA) 70 Urine Ketones 150 Urine Occult Blood SMALL Urine Nitrite NEG Urine Bilirubin LARGE Urine Urobilinogen 8.0 Urine Leukocyte Esterase NEG Urine RBC 2 Urine WBC 5 Urine Squamous Epithelial Cells <1 Urine Hyaline Casts 157 Urine Granular Casts 5 Urine Mucus FEW Microscopic Urinalysis Comment CULT NOT INDICATED Result Diagram: 11/06/17 1204 11/06/17 1204 Imaging Last Impressions Abdomen/Pelvis CT 11/06/17 1137 Signed Impressions: Service Date/Time: Monday, November 06, 2017 14:50 - CONCLUSION: 1. Findings of chronic pancreatitis with calcifications in the head and uncinate process, dilation of the pancreatic duct and marked atrophy of the mid body and tail. 2. Diffuse hepatic fatty infiltration. No focal mass lesions. 3. Findings of portal hypertension with a portosystemic shunt emanating from the origin of the portal vein and draining into the left renal vein. 4. Cholelithiasis MD Bill Sanchez VTE Risk Assessment Caprini VTE Risk Assessment: Mod/High Risk (score >= 2) VTE Pharm Contraindication: End Stage Liver Disease Caprini Risk Assessment Model Point Value = 1 Point Value = 2 Point Value = 3 Point Value = 5 Age 41-60 Minor surgery BMI > 25 kg/m2 Swollen legs Varicose veins or History of unexplained or recurrent spontaneous Oral contraceptives or hormone replacement Sepsis (< 1 month) Serious lung disease, including pneumonia (< 1 month) Abnormal pulmonary function Acute myocardial infarction Congestive heart failure (< 1 month) History of inflammatory bowel disease Medical patient at bed rest Age 61-74 Arthroscopic surgery Major open surgery (> 45 min) Laparoscopic surgery (> 45 min) Malignancy Confined to bed (> 72 hours) Immobilizing plaster cast Central venous access Age >= 75 History of VTE Family history of VTE Factor V Leiden Prothrombin [id number] Lupus anticoagulant Anticardiolipin antibodies Elevated serum homocysteine Heparin-induced thrombocytopenia Other congenital or acquired thrombophilia Stroke (< 1 month) Elective arthroplasty Hip, pelvis, or leg fracture Acute spinal cord injury (< 1 month) Prophylaxis Regimen Total Risk Factor Score Risk Level Prophylaxis Regimen 0-1 Low Early ambulation 2 Moderate Order ONE of the following: *Sequential Compression Device (SCD) *Heparin 5000 units SQ BID 3-4 Higher Order ONE of the following medications: *Heparin 5000 units SQ TID *Enoxaparin/Lovenox 40 mg SQ daily (WT < 150 kg, CrCl > 30 mL/min) *Enoxaparin/Lovenox 30 mg SQ daily (WT < 150 kg, CrCl > 10-29 mL/min) *Enoxaparin/Lovenox 30 mg SQ BID (WT < 150 kg, CrCl > 30 mL/min) AND/OR *Sequential Compression Device (SCD) 5 or more Highest Order ONE of the following medications: *Heparin 5000 units SQ TID (Preferred with Epidurals) *Enoxaparin/Lovenox 40 mg SQ daily (WT < 150 kg, CrCl > 30 mL/min) *Enoxaparin/Lovenox 30 mg SQ daily (WT < 150 kg, CrCl > 10-29 mL/min) *Enoxaparin/Lovenox 30 mg SQ BID (WT < 150 kg, CrCl > 30 mL/min) AND *Sequential Compression Device (SCD) Assessment and Plan Problem List: (1) Acute liver failure ICD Code: K72.00 - Acute and subacute hepatic failure without coma Status: Acute Plan: Directly related to the patient's continuing use of alcohol. Patient has been counseled extensively. State he has quit before but currently does not appear to have a plan. Will avoid hepatotoxic agents. Consult gastroenterology. Patient follows with Dr. Ruth (2) Hyponatremia ICD Code: E87.1 - Hypo-osmolality and hyponatremia Status: Acute Plan: Likely combination of hypovolemic hyponatremia and chronic alcohol use. Hydrate with normal saline. Repeat BMP today. (3) Hypokalemia ICD Code: E87.6 - Hypokalemia Status: Acute Plan: Replace aggressively. Replace mag. Recheck BMP today. (4) Chronic pancreatitis ICD Code: K86.1 - Other chronic pancreatitis Status: Acute (5) Alcohol abuse ICD Code: F10.10 - Alcohol abuse Status: Chronic Plan: Patient was extensively counseled about the detrimental effects of alcohol on his health. CIWA per protocol. At risk for DTs. (6) Hypomagnesemia ICD Code: E83.42 - Hypomagnesemia Status: Acute Plan: Replace aggressively and recheck levels in a.m. (7) Diabetes ICD Code: E11.9 - Type 2 diabetes mellitus without complications Plan: Noncompliant with insulin therapy. Levemir 10 units nightly and sliding scale insulin with Accu-Cheks. (8) Elevated LFTs ICD Code: R79.89 - Other specified abnormal findings of blood chemistry (9) Hyperammonemia ICD Code: E72.20 - Disorder of urea cycle metabolism, unspecified Assessment and Plan The patient is in acute liver failure from alcoholism with multiple electrolytes abnormalities. Admit to ICU. Electrolyte protocols. Monitor labs closely. Discussed Condition With ED staff. Physician Certification 2 Midnight Certification Type: Admission for Inpatient Services Order for Inpatient Services The services are ordered in accordance with Medicare regulations or non- Medicare payer requirements, as applicable. In the case of services not specified as inpatient-only, they are appropriately provided as inpatient services in accordance with the 2-midnight benchmark. Estimated LOS (days): 5 days is the estimated time the patient will need to remain in the hospital, assuming treatment plan goals are met and no additional complications. Post-Hospital Plan: Not yet determined Problem Qualifiers (1) Acute liver failure: Qualified Codes: K72.00 - Acute and subacute hepatic failure without coma (2) Chronic pancreatitis: Qualified Codes: K86.0 - Alcohol-induced chronic pancreatitis Radha Braun MD November 06, 2017 17:35
[2017-11-06] MEDS ORDERED: MAGNESIUM OXIDE 400 MG TAB PO PRN (17:45)
[2017-11-06] MEDS ORDERED: MAGNESIUM SULFATE INJ 2 GM in SODIUM CHLORIDE 0.9% INJ 96 ML IV PRN (17:45)
[2017-11-06] MEDS ORDERED: POTASSIUM CHLOR 20 MEQ PREMIX 100 ML IV PRN ×2 (17:45)
[2017-11-06] MEDS ORDERED: POTASSIUM PHOSPHATE MONOBASIC 500 MG TAB PO/TUBE PRN (17:45)
[2017-11-06] MEDS ORDERED: MAGNESIUM SULFATE INJ 4 GM in SODIUM CHLORIDE 0.9% INJ 92 ML IV PRN (17:45)
[2017-11-06] MEDS ORDERED: POTASSIUM CHLOR 40 MEQ PREMIX 100 ML IV PRN ×2 (17:45)
[2017-11-06] MEDS ORDERED: POTASSIUM CHLORIDE 25 MEQ EFFERVESCENT TAB PO PRN (17:45)
[2017-11-06] MEDS ORDERED: POTASSIUM PHOSPHATE MONOBASIC 500 MG TAB PO PRN (17:45)
[2017-11-06] MEDS ORDERED: SODIUM PHOSPHATE INJ 30 MMOL in SODIUM CHLOR 0.9% 250 ML INJ 240 ML IV PRN (17:45)
[2017-11-06] MEDS ORDERED: POTASSIUM PHOSPHATE INJ 30 MMOL in SODIUM CHLOR 0.9% 250 ML INJ 250 ML IV PRN (17:45)
[2017-11-06] MEDS: INSULIN ASPART SUPPLEMENTAL SCALE SQ SCH ×2 (18:52→23:59)
[2017-11-06] MEDS: LORazepam 2 MG/ML VIAL IV PUSH PRN (19:16)
[2017-11-06] MEDS: LIPASE/PROTEASE/AMYLASE (12,000/38,000/60,000) CAP PO SCH (19:17)
[2017-11-06] MEDS: PHYTONADIONE 5 MG/SWFI 5 ML ORAL SYR PO SCH (20:30)
[2017-11-06] MEDS ORDERED: PHYTONADIONE 5 MG TAB PO SCH (20:30)
--- NOTE | 2017-11-06 20:51 | MB ---
cc: Aracelis Ruth MD, Ketul R MD DATE: 11/06/2017 REASON FOR CONSULTATION: Liver cirrhosis. HISTORY OF PRESENT ILLNESS: This is a 42-year-old gentleman, known to me from the office due to longstanding history of severe alcohol abuse and a recent diagnosis of liver cirrhosis. He has had multiple admissions and ER visits to the hospital for alcohol-related issues including acute on chronic pancreatitis, acute hepatitis as well as this most recent admission with severe mental status changes and decompensation of his liver disease. He admits to drinking at least 2-3 tall glasses of vodka on a daily basis. He came into the hospital with complaints of having not been able to eat or drink associated with persistent nausea and vomiting, as well as mild epigastric abdominal discomfort. I recently saw him in the office accompanied by his mother and we had a long discussion in regards to alcohol cessation. Unfortunately, he has either a very poor insight or poor judgment on his alcohol intake and, despite multiple attempts, he continues his alcohol abuse detrimental to his health. PAST MEDICAL HISTORY: 1. Chronic pancreatitis. 2. End-stage liver disease with cirrhosis secondary to alcohol abuse. 3. Alcohol dependence. 4. Diabetes mellitus. 5. Depression. PAST SURGICAL HISTORY: Tonsillectomy. FAMILY HISTORY: No GI malignancy. SOCIAL HISTORY: He is alcohol dependent, smokes a pack a day of tobacco. Denies any illicit drug use. Currently lives with his mother. ALLERGIES: NO KNOWN DRUG ALLERGIES. HOME MEDICATIONS: 1. Paroxetine. 2. Metoprolol. 3. Insulin. 4. Magnesium. 5. He is supposed to be on lactulose as well as Xifaxan, but he has not taken them. REVIEW OF SYSTEMS: A 12-point review of systems was obtained partially due to the patient's mental status changes and is unable to give accurate review of systems due to his mental status change and sedation. PHYSICAL EXAMINATION: VITAL SIGNS: Heart rate 94, temperature not performed, respirations 20, blood pressure 109/70, O2 saturation 100%. GENERAL: The patient is awake, responsive to sound. He is oriented to person and place, but very lethargic but arousable in no acute distress. HEENT: Pupils equal, round, reactive to light. Scleral icterus noted. Jaundice noted. Normocephalic. Oral mucosa is dry but pink. NECK: Supple. No carotid bruits. No thyromegaly. CARDIOVASCULAR: Regular rate and rhythm. No murmurs heard. LUNGS: Clear to auscultation bilaterally, no wheeze heard. ABDOMEN: Soft, nontender, nondistended. Bowel sounds present in all 4 quadrants. No ecchymosis noted. Hepatomegaly appreciated. No rebound appreciated. GENITOURINARY: No CVA angle tenderness. EXTREMITIES: Equal strength upper and lower extremities Asterixis noted. NEUROLOGIC: Awake to person and place. Difficult to measure any cranial nerves due to the patient's encephalopathy. PSYCHIATRIC: Inability to measure. LABORATORY DATA: WBC 18.1, hemoglobin 11.6, platelet count of 206. Sodium 123, potassium 1.8, chloride 63, bicarbonate 16.5, anion gap 44, BUN 19, creatinine 1.15, total bilirubin 10.1, AST 126, ALT 54, alkaline phosphatase 264, ammonia 69, total protein 3.2, lipase 161. INR 2.5. IMAGING STUDIES: CT of the abdomen and pelvis: Chronic pancreatitis with calcifications in the head and uncinate process, dilation of pancreatic duct, marked atrophy of the mid body tail. Diffuse fatty liver with no focal lesions, portal hypertension with portal systemic shunting emanating from the origin of the portal vein. Cholelithiasis. IMPRESSION: 1. Severely decompensated liver cirrhosis secondary to continued alcohol abuse. 2. Acute on chronic alcoholic hepatitis. 3. Coagulopathy, may be secondary to decompensated liver disease. 4. Severe hepatic encephalopathy. 5. Severe electrolyte derangement including severe hypokalemia and hyponatremia. RECOMMENDATIONS: 1. I agree with aggressive electrolyte replacement per protocol. Agree with intensive care unit and critical care management of this patient. 2. Recommend starting Lactulose 30 mL p.o. b.i.d. to t.i.d. with ideal goal of 2 or 3 loose bowel movements. 3. Xifaxan 550 mg p.o. b.i.d. 4. We will hold off on any diuretics at this time. It can be added depending on the electrolyte imbalance. 5. The patient has already been extensively counseled on alcohol cessation but, despite counseling, he continues to drink actively and heavily. At this time, we do not have any endoscopic therapy to offer or that are needed. A lot of his medical issues need to be managed medically to see if they can be stabilized. In regard to coagulopathy, could have some underlying vitamin K deficiency due to dietary changes. Therefore, recommend vitamin K 5 mg p.o. daily for the next 3 days. Thank you for allowing [facility] to participate in the care of this patient. We will follow him with you and make recommendations as per the patient's clinical course. MD KAITLYNN Mayo/ , 08:18 PM , 08:50 PM
[2017-11-06] MEDS: RIFAXIMIN 550 MG TAB PO SCH (22:27)
[2017-11-06] MEDS: SODIUM CHLORIDE 0.9% FLUSH 10 ML FLUSH IV FLUSH SCH (22:27)
[2017-11-06] MEDS: INSULIN DETEMIR 100 UNITS/ML VIAL SQ SCH (23:00)
[2017-11-06 23:02] LABS: BICARBONATE 17.2 MEQ/L (21.0-32.0); BLOOD UREA NITROGEN 16 MG/DL (7-18); CALCIUM 7.3 MG/DL (8.5-10.1); CHLORIDE 78 MEQ/L (98-107); CREATININE 1.02 MG/DL (0.60-1.30); GLOMERULAR FILTRATION RATE 80 ML/MIN (>89); GLUCOSE,RANDOM 274 MG/DL (74-106); PHOSPHORUS 0.2 MG/DL (2.5-4.9); SODIUM (NA) 131 MEQ/L (136-145)
[2017-11-06 23:27] LABS: CALCIUM-PROTEIN CORRECTED 7.5 MG/DL (8.5-10.1); TOTAL PROTEIN 6.7 GM/DL (6.4-8.2)
[2017-11-07] VITALS (11 sets, daily range): BP systolic 93–135; BP diastolic 60–90; PULSE 80–110; RESP 12–20; TEMP 98–99.4; O2SAT 92–100
[2017-11-07] MEDS ORDERED: POTASSIUM CHLOR 10 MEQ PREMIX 100 ML IV SCH (00:30)
[2017-11-07] MEDS: POTASSIUM CHLOR 20 MEQ PREMIX 100 ML IV SCH ×3 (00:45→16:04)
[2017-11-07] MEDS ORDERED: THIAMINE INJ 100 MG in SODIUM CHLORIDE 0.9% INJ 100 ML IV ONE (00:45)
[2017-11-07] MEDS ORDERED: THIAMINE HCL 100 MG TAB PO ONE (00:45)
[2017-11-07 00:52] LABS: MAGNESIUM 2.8 MG/DL (1.5-2.5)
[2017-11-07] MEDS ORDERED: POTASSIUM PHOSPHATE INJ 30 MMOL in SODIUM CHLOR 0.9% 250 ML INJ 250 ML IV ONE ×2 (01:00→20:00)
[2017-11-07] MEDS: 1/2 NS + KCL 20 MEQ INJ 1,000 ML IV SCH ×3 (01:17→23:57)
[2017-11-07] MEDS: POTASSIUM CHLOR 10 MEQ PREMIX 100 ML IV SCH ×6 (02:30→07:52)
[2017-11-07 04:29] LABS: ACETAMINOPHEN LESS THAN 2.0 MCG/ML (10.0-30.0)
[2017-11-07 04:36] LABS: AUTOMATED NEUTROPHIL # 9.3 TH/MM3 (1.8-7.7); BASOPHIL % 0.3 % (0.0-2.0); EOSINOPHIL % 0.4 % (0.0-4.0); HEMOGLOBIN 10.5 GM/DL (13.0-17.0); LYMPH % 4.7 % (9.0-44.0); LYMPHOCYTE # 0.5 TH/MM3 (1.0-4.8); MEAN CELL VOLUME 95.6 FL (80.0-100.0); MEAN CORPUSCULAR HEMOGLOBIN 33.6 PG (27.0-34.0); MEAN CORPUSCULAR HGB CONC 35.1 % (32.0-36.0); MEAN PLATELET VOLUME 8.3 FL (7.0-11.0); MONO % 10.5 % (0.0-8.0); MONOCYTE # 1.2 TH/MM3 (0-0.9); NEUT % 84.1 % (16.0-70.0); PLATELET COUNT 161 TH/MM3 (150-450); RED BLOOD COUNT 3.14 MIL/MM3 (4.50-5.90); RED CELL DISTRIBUTION WIDTH 12.7 % (11.6-17.2); WHITE BLOOD COUNT 11.1 TH/MM3 (4.0-11.0)
[2017-11-07 04:48] LABS: INTERNATIONAL NORMALIZED RATIO 1.8 RATIO; PROTHROMBIN TIME - PATIENT 18.1 SEC (9.8-11.6)
[2017-11-07 05:13] LABS: ALBUMIN 2.6 GM/DL (3.4-5.0); AST (GOT) 101 U/L (15-37); BICARBONATE 21.5 MEQ/L (21.0-32.0); BLOOD UREA NITROGEN 14 MG/DL (7-18); CALCIUM 7.6 MG/DL (8.5-10.1); CHLORIDE 84 MEQ/L (98-107); CREATININE 1.03 MG/DL (0.60-1.30); GLOMERULAR FILTRATION RATE 79 ML/MIN (>89); GLUCOSE,RANDOM 146 MG/DL (74-106); MAGNESIUM 2.4 MG/DL (1.5-2.5); SODIUM (NA) 130 MEQ/L (136-145)
[2017-11-07 05:19] LABS: ALKALINE PHOSPHATASE 212 U/L (45-117); ALT (GPT) 41 U/L (12-78); TOTAL BILIRUBIN ADULT 8.1 MG/DL (0.2-1.0); TOTAL PROTEIN 6.6 GM/DL (6.4-8.2)
[2017-11-07] MEDS ORDERED: POTASSIUM CHLORIDE 10 MEQ CONTROLLED RELEASE TAB PO ONE ×3 (05:30→18:00)
[2017-11-07 05:58] LABS: PHOSPHORUS 0.5 MG/DL (2.5-4.9)
[2017-11-07] MEDS: LORazepam 2 MG/ML VIAL IV PUSH PRN (07:53)
[2017-11-07] MEDS: INSULIN ASPART SUPPLEMENTAL SCALE SQ SCH ×4 (08:00→20:26)
[2017-11-07] MEDS: SODIUM CHLORIDE 0.9% FLUSH 10 ML FLUSH IV FLUSH SCH ×2 (08:08→20:25)
[2017-11-07] MEDS ORDERED: THIAMINE HCL 100 MG TAB PO SCH (09:00)
[2017-11-07] MEDS: THIAMINE HCL 100 MG TAB PO SCH (09:00)
--- NOTE | 2017-11-07 10:17 | HHI.PR ---
Subjective Remarks in no acute distress. has some generalized abdominal pain. has some nausea but with no emesis. mildly anxious. no fever. Objective Vitals Vital Signs Date Time Temp Pulse Resp B/P (MAP) Pulse Ox O2 Delivery O2 Flow Rate FiO2 11/07/17 06:32 87 12 114/81 (92) 99 Room Air 11/07/17 05:57 85 14 109/61 (77) 98 Room Air 11/07/17 02:07 82 16 102/68 (79) 98 Room Air 11/07/17 00:22 80 14 121/72 (88) 100 Room Air 11/06/17 22:00 90 14 108/74 (85) 99 Room Air 11/06/17 19:37 94 20 109/70 (83) 100 Room Air 11/06/17 17:26 82 20 116/73 (87) 100 Room Air 11/06/17 14:00 80 18 113/77 (89) 100 Room Air 11/06/17 13:41 90 18 113/77 (89) 99 Room Air 11/06/17 12:07 101 18 99 Room Air 11/06/17 11:28 18 11/06/17 11:17 97.7 116 19 114/71 (85) 100 Result Diagram: 11/07/17 0358 11/07/17 0358 Imaging Last Impressions Abdomen/Pelvis CT 11/06/17 1137 Signed Impressions: Service Date/Time: Monday, November 06, 2017 14:50 - CONCLUSION: 1. Findings of chronic pancreatitis with calcifications in the head and uncinate process, dilation of the pancreatic duct and marked atrophy of the mid body and tail. 2. Diffuse hepatic fatty infiltration. No focal mass lesions. 3. Findings of portal hypertension with a portosystemic shunt emanating from the origin of the portal vein and draining into the left renal vein. 4. Cholelithiasis Merlin Monteiro MD Objective Remarks GENERAL: This is a well-nourished, well-developed patient, in no apparent distress. CARDIOVASCULAR: Regular rate and regular rhythm without murmurs, gallops, or rubs. RESPIRATORY: Clear to auscultation. Breath sounds equal bilaterally. No wheezes , rales, or rhonchi. GASTROINTESTINAL: Abdomen soft, mild generalized tenderness, nondistended. Normal, active bowel sounds MUSCULOSKELETAL: Extremities without clubbing, cyanosis, or edema. NEURO: Alert & Oriented x4 to person, place, time, situation. Moves all ext x4 Medications and IVs Inpatient Medications Amylase/Lipase/ Protease (Creon 12-38-60) 1 cap TID PO Last administered on 11/06at 19:17; Start 11/06/17 at 18:00 Dextrose (D50w (Vial) Inj) 50 ml UNSCH PRN IV PUSH HYPOGLYCEMIA-SEE COMMENTS; Start 11/06/17 at 16:15 Flumazenil (Romazicon Inj) 0.2 mg Q1M PRN IV PUSH SEE LABEL COMMENTS; Start 11/06/17 at 16:15 Folic Acid (Folate) 1 mg DAILY PO ; Start 11/07/17 at 09:00; Stop 11/12/17 at 08: 59 Glucagon (Glucagon Inj) 1 mg UNSCH PRN OTHER HYPOGLYCEMIA-SEE COMMENTS; Start 11/06/17 at 16:15 Insulin Aspart (NovoLOG SUPPLEMENTAL SCALE) 1 ACHS SLIDING SCALE SQ Last administered on 11/06/17at 23:59; Start 11/06/17 at 17:00 Insulin Detemir (Levemir Inj) 10 units HS SQ Last administered on 11/06/17at 23: 00; Start 11/06/17 at 21:00 Lactulose (Lactulose Liq) 30 ml DAILY PO ; Start 11/07/17 at 09:00 Lorazepam (Ativan Inj) 2 mg Q15M PRN IV PUSH CIWA > 20; Start 11/06/17 at 16:15 Lorazepam (Ativan) 2 mg Q2H PRN PO CIWA 11-14; Start 11/06/17 at 16:15 Magnesium Oxide (Mag-Ox) 800 mg UNSCH PRN PO For Magnesium 1.2 - 1.6 mg/dL; Start 11/06/17 at 17:45 Magnesium Sulfate 2 gm/Sodium Chloride 100 ml @ 50 mls/hr UNSCH PRN IV For Magnesium 1.2 - 1.6 mg/dL; Start 11/06/17 at 17:45 Magnesium Sulfate 4 gm/Dextrose 100 ml @ 25 mls/hr ONCE IV Last administered on 11/06/17at 18:52; Start 11/06/17 at 17:00; Stop 11/06/17 at 20:59; Status DC Magnesium Sulfate 4 gm/Sodium Chloride 100 ml @ 50 mls/hr UNS PRN IV For Magnesium 0.9 - 1.1 mg/dL; Start 11/06/17 at 17:45 Magnesium Sulfate/ Dextrose 100 ml @ 100 mls/hr ONCE ONCE IV Last administered on 11/06/17at 13:48; Start 11/06/17 at 13:15; Stop 11/06/17 at 14:14; Status DC Metoclopramide HCl (Reglan Inj) 10 mg ONCE ONCE IV PUSH Last administered on at 17:24; Start 11/06/17 at 14:45; Stop 11/06/17 at 14:50; Status DC Metoprolol Succinate (Toprol Xl) 25 mg DAILY PO ; Start 11/07/17 at 09:00 Morphine Sulfate (Morphine Inj) 4 mg ONCE ONCE IV PUSH Last administered on 11/06/17at 17:25; Start 11/06/17 at 16:15; Stop 11/06/17 at 16:16; Status DC Multivitamins/ Minerals Therapeutic (Theragran M Tab) 1 tab DAILY PO ; Start 11/07/17 at 09:00; Stop 11/12/17 at 08:59 Ondansetron HCl (Zofran Inj) 4 mg Q6H PRN IV PUSH NAUSEA OR VOMITING Last administered on 11/07/17at 07:53; Start 11/06/17 at 16:15 Pantoprazole Sodium (Protonix) 40 mg DAILY PO ; Start 11/07/17 at 09:00 Paroxetine HCl (Paxil) 40 mg DAILY PO ; Start 11/07/17 at 09:00 Phytonadione (Mephyton Liq) 5 mg DAILY PO Last administered on 11/06/17at 20:30; Start 11/06/17 at 20:30; Stop 11/08/17 at 20:29 Potassium Chloride 30 meq/ Sodium Chloride 1,015 ml @ 100 mls/hr Q10H9M IV Last administered on 11/06/17at 19:37; Start 11/06/17 at 17:00; Stop 11/07/17 at 00: 28; Status DC Potassium Chloride/Sodium Chloride 1,000 ml @ 84 mls/hr [id number] IV Last administered on 11/07/17at 01:17; Start 11/07/17 at 00:30 Potassium Phosphate (K-Phos) 2,000 mg UNSCH PRN PO/TUBE SEE LABEL COMMENTS; Start 11/06/17 at 17:45 Potassium Phosphate 30 mmol/ Sodium Chloride 260 ml @ 43.333 mls/ hr ONCE ONCE IV Last administered on 11/07/17at 02:06; Start 11/07/17 at 01:00; Stop at 06:59; Status DC Potassium Bicarb/ Potassium Chloride (K-Lyte Cl Eff) 50 meq UNSCH PRN PO For Potassium 3.3 - 3.5 mEq/L; Start 11/06/17 at 17:45 Potassium Chloride 100 ml @ 100 mls/hr Q1H IV Last administered on 11/07/17at 07 :52; Start 11/07/17 at 05:30; Stop 11/07/17 at 08:29; Status DC Potassium Chloride (KCl) 60 meq ONCE ONCE PO Last administered on 11/07/17at 07: 52; Start 11/07/17 at 05:30; Stop 11/07/17 at 05:34; Status DC Rifaximin (Xifaxan) 550 mg BID PO Last administered on 11/06/17at 22:27; Start at 21:00 Sodium Chloride 1,000 ml @ 100 mls/hr Q10H IV ; Start 11/06/17 at 16:12; Stop at 16:28; Status DC Sodium Chloride (NS Flush) 2 ml BID IV FLUSH ; Start 11/06/17 at 21:00 Sodium Phosphate 30 mmol/Sodium Chloride 250 ml @ 42 mls/hr UNSCH PRN IV For Phosphorus < 2.5 mg/dL; Start 11/06/17 at 17:45 Thiamine HCl (Vitamin B1) 100 mg DAILY PO ; Start 11/07/17 at 09:00 Thiamine HCl 100 mg/Sodium Chloride 101 ml @ 101 mls/hr ONCE ONCE IV Last administered on 11/07/17at 01:13; Start 11/07/17 at 00:45; Stop 11/07/17 at 01:44; Status DC A/P Problem List: (1) Acute liver failure ICD Code: K72.00 - Acute and subacute hepatic failure without coma Status: Acute (2) Hyponatremia ICD Code: E87.1 - Hypo-osmolality and hyponatremia Status: Acute (3) Hypokalemia ICD Code: E87.6 - Hypokalemia Status: Acute (4) Chronic pancreatitis ICD Code: K86.1 - Other chronic pancreatitis Status: Acute (5) Alcohol abuse ICD Code: F10.10 - Alcohol abuse Status: Chronic (6) Hypomagnesemia ICD Code: E83.42 - Hypomagnesemia Status: Acute (7) Diabetes ICD Code: E11.9 - Type 2 diabetes mellitus without complications (8) Elevated LFTs ICD Code: R79.89 - Other specified abnormal findings of blood chemistry (9) Hyperammonemia ICD Code: E72.20 - Disorder of urea cycle metabolism, unspecified Assessment and Plan A/P (1) Acute liver failure related to the patient's continuing use of alcohol. Patient has been counseled extensively. State he has quit before but currently does not appear to have a plan. Will avoid hepatotoxic agents. GI consult appreciated; started on Lactulose and Rifaximin. will continue to monitor the liver function. (2) Hyponatremia Likely combination of hypovolemic hyponatremia and chronic alcohol use. Hydrate with normal saline. sodium level has improved- continue to monitor. (3) Hypokalemia I Replace aggressively. Recheck BMP today. (4) Chronic pancreatitis continue with Creon. (5) Alcohol abuse Patient was extensively counseled about the detrimental effects of alcohol on his health. CIWA per protocol. At risk for DTs. (6) Hypomagnesemia Replaced. (7) Diabetes - Type 2 diabetes mellitus without complications Plan: Noncompliant with insulin therapy. Levemir 10 units nightly and sliding scale insulin with Accu-Cheks. (8) coagulopathy continue with vitamin K- monitor for bleeding. Discharge Planning will continue to monitor the liver function and aggressively replace the electrolytes. not ready for discharge. Problem Qualifiers (1) Acute liver failure: Qualified Codes: K72.00 - Acute and subacute hepatic failure without coma (2) Chronic pancreatitis: Qualified Codes: K86.0 - Alcohol-induced chronic pancreatitis Amparo Castro MD November 07, 2017 10:17
[2017-11-07] MEDS: PARoxetine HCL 20 MG TAB PO SCH (10:50)
[2017-11-07] MEDS: LIPASE/PROTEASE/AMYLASE (12,000/38,000/60,000) CAP PO SCH ×3 (10:50→18:21)
[2017-11-07] MEDS: MULTIVITAMINS/MINERALS THERAPEUTIC TAB PO SCH (10:51)
[2017-11-07] MEDS: METOPROLOL SUCCINATE 25 MG EXTENDED RELEASE TAB PO SCH (10:51)
[2017-11-07] MEDS: PHYTONADIONE 5 MG/SWFI 5 ML ORAL SYR PO SCH (10:51)
[2017-11-07] MEDS: RIFAXIMIN 550 MG TAB PO SCH ×2 (10:51→20:25)
[2017-11-07] MEDS: LACTULOSE SYRUP 20 GM/30 ML CUP PO SCH (10:51)
[2017-11-07] MEDS: PANTOPRAZOLE SOD 40 MG DELAYED RELEASE TAB PO SCH (10:51)
[2017-11-07] MEDS: FOLIC ACID 1 MG TAB PO SCH (10:51)
[2017-11-07 12:05] LABS: BICARBONATE 28.8 MEQ/L (21.0-32.0); CALCIUM 7.4 MG/DL (8.5-10.1); CREATININE 0.94 MG/DL (0.60-1.30)
[2017-11-07 12:24] LABS: CALCIUM-PROTEIN CORRECTED 7.9 MG/DL (8.5-10.1); TOTAL PROTEIN 6.2 GM/DL (6.4-8.2)
--- NOTE | 2017-11-07 16:46 | HHI.GIFU ---
Subjective Remarks alert NAD VSS slightly confused c/o mild abd pain Objective Vitals I&O Vital Signs Date Time Temp Pulse Resp B/P (MAP) Pulse Ox O2 Delivery O2 Flow Rate FiO2 11/07/17 16:00 92 11/07/17 14:00 110 11/07/17 12:25 11/07/17 12:00 106 11/07/17 12:00 98.2 106 14 126/90 (102) 93 11/07/17 11:00 88 19 135/90 (105) 94 Room Air 11/07/17 06:32 87 12 114/81 (92) 99 Room Air 11/07/17 05:57 85 14 109/61 (77) 98 Room Air 11/07/17 02:07 82 16 102/68 (79) 98 Room Air 11/07/17 00:22 80 14 121/72 (88) 100 Room Air 11/06/17 22:00 90 14 108/74 (85) 99 Room Air 11/06/17 19:37 94 20 109/70 (83) 100 Room Air 11/06/17 17:26 82 20 116/73 (87) 100 Room Air Laboratory Laboratory Tests Test 11/06/17 22:25 11/07/17 01:49 11/07/17 02:00 11/07/17 03:58 Blood Urea Nitrogen 16 14 Creatinine 1.02 1.03 Random Glucose 274 146 Total Protein 6.7 6.6 Calcium Level 7.3 7.6 Phosphorus Level 0.2 0.5 Magnesium Level 2.8 2.4 Sodium Level 131 130 Potassium Level 1.9 2.2 Chloride Level 78 84 Carbon Dioxide Level 17.2 21.5 Anion Gap 36 25 Estimat Glomerular Filtration Rate 80 79 Protein Corrected Calcium 7.5 Acetaminophen Level LESS THAN 2.0 B-Hydroxybutyrate 14.09 Blood Gas Puncture Site RT RADIAL Blood Gas Patient Temperature 98.6 Blood Gas HCO3 17 Blood Gas Base Excess -6.6 Blood Gas Oxygen Saturation 94 Arterial Blood pH 7.43 Arterial Blood Partial Pressure CO2 26 Arterial Blood Partial Pressure O2 86 Arterial Blood Oxygen Content 12.5 Arterial Blood Carboxyhemoglobin 2.4 Arterial Blood Methemoglobin 0.7 Blood Gas Hemoglobin 9.4 Oxygen Delivery Device ROOM AIR Blood Gas Inspired Oxygen 21 Lactic Acid Level 0.8 White Blood Count 11.1 Red Blood Count 3.14 Hemoglobin 10.5 Hematocrit 30.0 Mean Corpuscular Volume 95.6 Mean Corpuscular Hemoglobin 33.6 Mean Corpuscular Hemoglobin Concent 35.1 Red Cell Distribution Width 12.7 Platelet Count 161 Mean Platelet Volume 8.3 Neutrophils (%) (Auto) 84.1 Lymphocytes (%) (Auto) 4.7 Monocytes (%) (Auto) 10.5 Eosinophils (%) (Auto) 0.4 Basophils (%) (Auto) 0.3 Neutrophils # (Auto) 9.3 Lymphocytes # (Auto) 0.5 Monocytes # (Auto) 1.2 Eosinophils # (Auto) 0.0 Basophils # (Auto) 0.0 CBC Comment DIFF FINAL Differential Comment Prothrombin Time 18.1 Prothromb Time International Ratio 1.8 Albumin 2.6 Alkaline Phosphatase 212 Aspartate Amino Transf (AST/SGOT) 101 Alanine Aminotransferase (ALT/SGPT) 41 Total Bilirubin 8.1 Test 11/07/17 04:36 11/07/17 11:22 Serum Osmolality 296 Blood Urea Nitrogen 10 Creatinine 0.94 Random Glucose 86 Total Protein 6.2 Calcium Level 7.4 Sodium Level 132 Potassium Level 2.0 Chloride Level 85 Carbon Dioxide Level 28.8 Anion Gap 18 Estimat Glomerular Filtration Rate 88 Protein Corrected Calcium 7.9 Imaging Last 48 hours Impressions Abdomen/Pelvis CT 11/06/17 1137 Signed Impressions: Service Date/Time: Monday, November 06, 2017 14:50 - CONCLUSION: 1. Findings of chronic pancreatitis with calcifications in the head and uncinate process, dilation of the pancreatic duct and marked atrophy of the mid body and tail. 2. Diffuse hepatic fatty infiltration. No focal mass lesions. 3. Findings of portal hypertension with a portosystemic shunt emanating from the origin of the portal vein and draining into the left renal vein. 4. Cholelithiasis Merlin Monteiro MD Laboratory Tests Test 11/06/17 00:00 11/06/17 12:04 11/06/17 12:10 11/06/17 12:36 Salicylates Level LESS THAN 1.7 MG/DL Activated Partial Thromboplast Time 34.8 SEC Total Creatine Kinase 36 U/L Troponin I LESS THAN 0.02 NG/ML Lipase 161 U/L Ethyl Alcohol Level LESS THAN 3 MG/DL Ammonia 69 MCMOL/L Urine Color DARK-YELLOW Urine Turbidity HAZY Urine pH 6.5 Urine Specific [place] 1.021 Urine Protein 300 mg/dL Urine Glucose (UA) 70 mg/dL Urine Ketones 150 mg/dL Urine Occult Blood SMALL Urine Nitrite NEG Urine Bilirubin LARGE Urine Urobilinogen 8.0 MG/DL Urine Leukocyte Esterase NEG Urine RBC 2 /hpf Urine WBC 5 /hpf Urine Squamous Epithelial Cells <1 /hpf Urine Hyaline Casts 157 /lpf Urine Granular Casts 5 /lpf Urine Mucus FEW /lpf Microscopic Urinalysis Comment CULT NOT INDICATED Urine Opiates Screen NEG Urine Barbiturates Screen NEG Urine Amphetamines Screen NEG Urine Benzodiazepines Screen POS Urine Cocaine Screen NEG Urine Cannabinoids Screen NEG Test 11/06/17 22:25 11/07/17 01:49 11/07/17 02:00 11/07/17 03:58 Acetaminophen Level LESS THAN 2.0 MCG/ML B-Hydroxybutyrate 14.09 MMOL/L Blood Gas Puncture Site RT RADIAL Blood Gas Patient Temperature 98.6 Blood Gas HCO3 17 mmol/L Blood Gas Base Excess -6.6 mmol/L Blood Gas Oxygen Saturation 94 % Arterial Blood pH 7.43 Arterial Blood Partial Pressure CO2 26 mmHg Arterial Blood Partial Pressure O2 86 mmHG Arterial Blood Oxygen Content 12.5 Vol % Arterial Blood Carboxyhemoglobin 2.4 % Arterial Blood Methemoglobin 0.7 % Blood Gas Hemoglobin 9.4 G/DL Oxygen Delivery Device ROOM AIR Blood Gas Inspired Oxygen 21 % Lactic Acid Level 0.8 mmol/L White Blood Count 11.1 TH/MM3 Red Blood Count 3.14 MIL/MM3 Hemoglobin 10.5 GM/DL Hematocrit 30.0 % Mean Corpuscular Volume 95.6 FL Mean Corpuscular Hemoglobin 33.6 PG Mean Corpuscular Hemoglobin Concent 35.1 % Red Cell Distribution Width 12.7 % Platelet Count 161 TH/MM3 Mean Platelet Volume 8.3 FL Neutrophils (%) (Auto) 84.1 % Lymphocytes (%) (Auto) 4.7 % Monocytes (%) (Auto) 10.5 % Eosinophils (%) (Auto) 0.4 % Basophils (%) (Auto) 0.3 % Neutrophils # (Auto) 9.3 TH/MM3 Lymphocytes # (Auto) 0.5 TH/MM3 Monocytes # (Auto) 1.2 TH/MM3 Eosinophils # (Auto) 0.0 TH/MM3 Basophils # (Auto) 0.0 TH/MM3 CBC Comment DIFF FINAL Differential Comment Prothrombin Time 18.1 SEC Prothromb Time International Ratio 1.8 RATIO Blood Urea Nitrogen 14 MG/DL Creatinine 1.03 MG/DL Random Glucose 146 MG/DL Total Protein 6.6 GM/DL Albumin 2.6 GM/DL Calcium Level 7.6 MG/DL Phosphorus Level 0.5 MG/DL Magnesium Level 2.4 MG/DL Alkaline Phosphatase 212 U/L Aspartate Amino Transf (AST/SGOT) 101 U/L Alanine Aminotransferase (ALT/SGPT) 41 U/L Total Bilirubin 8.1 MG/DL Sodium Level 130 MEQ/L Potassium Level 2.2 MEQ/L Chloride Level 84 MEQ/L Carbon Dioxide Level 21.5 MEQ/L Test 11/07/17 04:36 11/07/17 11:22 Serum Osmolality 296 MOSM/KG Blood Urea Nitrogen 10 MG/DL Creatinine 0.94 MG/DL Random Glucose 86 MG/DL Total Protein 6.2 GM/DL Calcium Level 7.4 MG/DL Sodium Level 132 MEQ/L Potassium Level 2.0 MEQ/L Chloride Level 85 MEQ/L Carbon Dioxide Level 28.8 MEQ/L Anion Gap 18 MEQ/L Estimat Glomerular Filtration Rate 88 ML/MIN Protein Corrected Calcium 7.9 MG/DL Laboratory Tests Test 11/06/17 00:00 11/06/17 12:04 11/06/17 12:10 11/06/17 12:36 Salicylates Level LESS THAN 1.7 MG/DL Activated Partial Thromboplast Time 34.8 SEC Total Creatine Kinase 36 U/L Troponin I LESS THAN 0.02 NG/ML Lipase 161 U/L Ethyl Alcohol Level LESS THAN 3 MG/DL Ammonia 69 MCMOL/L Urine Color DARK-YELLOW Urine Turbidity HAZY Urine pH 6.5 Urine Specific [place] 1.021 Urine Protein 300 mg/dL Urine Glucose (UA) 70 mg/dL Urine Ketones 150 mg/dL Urine Occult Blood SMALL Urine Nitrite NEG Urine Bilirubin LARGE Urine Urobilinogen 8.0 MG/DL Urine Leukocyte Esterase NEG Urine RBC 2 /hpf Urine WBC 5 /hpf Urine Squamous Epithelial Cells <1 /hpf Urine Hyaline Casts 157 /lpf Urine Granular Casts 5 /lpf Urine Mucus FEW /lpf Microscopic Urinalysis Comment CULT NOT INDICATED Urine Opiates Screen NEG Urine Barbiturates Screen NEG Urine Amphetamines Screen NEG Urine Benzodiazepines Screen POS Urine Cocaine Screen NEG Urine Cannabinoids Screen NEG Test 11/06/17 22:25 11/07/17 01:49 11/07/17 02:00 11/07/17 03:58 Acetaminophen Level LESS THAN 2.0 MCG/ML B-Hydroxybutyrate 14.09 MMOL/L Blood Gas Puncture Site RT RADIAL Blood Gas Patient Temperature 98.6 Blood Gas HCO3 17 mmol/L Blood Gas Base Excess -6.6 mmol/L Blood Gas Oxygen Saturation 94 % Arterial Blood pH 7.43 Arterial Blood Partial Pressure CO2 26 mmHg Arterial Blood Partial Pressure O2 86 mmHG Arterial Blood Oxygen Content 12.5 Vol % Arterial Blood Carboxyhemoglobin 2.4 % Arterial Blood Methemoglobin 0.7 % Blood Gas Hemoglobin 9.4 G/DL Oxygen Delivery Device ROOM AIR Blood Gas Inspired Oxygen 21 % Lactic Acid Level 0.8 mmol/L White Blood Count 11.1 TH/MM3 Red Blood Count 3.14 MIL/MM3 Hemoglobin 10.5 GM/DL Hematocrit 30.0 % Mean Corpuscular Volume 95.6 FL Mean Corpuscular Hemoglobin 33.6 PG Mean Corpuscular Hemoglobin Concent 35.1 % Red Cell Distribution Width 12.7 % Platelet Count 161 TH/MM3 Mean Platelet Volume 8.3 FL Neutrophils (%) (Auto) 84.1 % Lymphocytes (%) (Auto) 4.7 % Monocytes (%) (Auto) 10.5 % Eosinophils (%) (Auto) 0.4 % Basophils (%) (Auto) 0.3 % Neutrophils # (Auto) 9.3 TH/MM3 Lymphocytes # (Auto) 0.5 TH/MM3 Monocytes # (Auto) 1.2 TH/MM3 Eosinophils # (Auto) 0.0 TH/MM3 Basophils # (Auto) 0.0 TH/MM3 CBC Comment DIFF FINAL Differential Comment Prothrombin Time 18.1 SEC Prothromb Time International Ratio 1.8 RATIO Blood Urea Nitrogen 14 MG/DL Creatinine 1.03 MG/DL Random Glucose 146 MG/DL Total Protein 6.6 GM/DL Albumin 2.6 GM/DL Calcium Level 7.6 MG/DL Phosphorus Level 0.5 MG/DL Magnesium Level 2.4 MG/DL Alkaline Phosphatase 212 U/L Aspartate Amino Transf (AST/SGOT) 101 U/L Alanine Aminotransferase (ALT/SGPT) 41 U/L Total Bilirubin 8.1 MG/DL Sodium Level 130 MEQ/L Potassium Level 2.2 MEQ/L Chloride Level 84 MEQ/L Carbon Dioxide Level 21.5 MEQ/L Test 11/07/17 04:36 11/07/17 11:22 Serum Osmolality 296 MOSM/KG Blood Urea Nitrogen 10 MG/DL Creatinine 0.94 MG/DL Random Glucose 86 MG/DL Total Protein 6.2 GM/DL Calcium Level 7.4 MG/DL Sodium Level 132 MEQ/L Potassium Level 2.0 MEQ/L Chloride Level 85 MEQ/L Carbon Dioxide Level 28.8 MEQ/L Anion Gap 18 MEQ/L Estimat Glomerular Filtration Rate 88 ML/MIN Protein Corrected Calcium 7.9 MG/DL Physical Exam Jaundiced/ icteric sclera NECK: Neck is supple, no JVD, no lymphadenopathy. CHEST: Chest is clear to auscultation and percussion. CARDIAC: Regular rate and rhythm with no murmur gallop or rubs. ABDOMEN: Liver 4 FB below RCM, tender in epigastric region bs pos EXTREMITIES: No clubbing, cyanosis, or edema. SKIN: Normal; no rash; no jaundice. Assessment and Plan Assessment: (1) Chronic pancreatitis ICD Codes: K86.1 - Other chronic pancreatitis Status: Acute (2) Hypokalemia ICD Codes: E87.6 - Hypokalemia Status: Acute (3) Alcohol withdrawal ICD Codes: F10.239 - Alcohol withdrawal syndrome Status: Acute (4) Hyperammonemia ICD Codes: E72.20 - Disorder of urea cycle metabolism, unspecified (5) Elevated LFTs ICD Codes: R79.89 - Other specified abnormal findings of blood chemistry (6) Alcohol abuse ICD Codes: F10.10 - Alcohol abuse Status: Chronic (7) Abdominal pain ICD Codes: R10.9 - Unspecified abdominal pain Status: Acute (8) Acute liver failure ICD Codes: K72.00 - Acute and subacute hepatic failure without coma Status: Acute (9) Noncompliance ICD Codes: Z91.19 - Patient's noncompliance with other medical treatment and regimen Status: Acute Plan continue present therapy observe for DTs.. continue to correct hypo K, monitor labs.....will follow with you Problem Qualifiers (1) Chronic pancreatitis: Qualified Codes: K86.0 - Alcohol-induced chronic pancreatitis (2) Alcohol withdrawal: Qualified Codes: F10.230 - Alcohol dependence with withdrawal, uncomplicated (3) Abdominal pain: Qualified Codes: R10.9 - Unspecified abdominal pain (4) Acute liver failure: Qualified Codes: K72.00 - Acute and subacute hepatic failure without coma Molina Velasquez MD November 07, 2017 16:46
[2017-11-07 18:27] LABS: BICARBONATE 31.5 MEQ/L (21.0-32.0); CALCIUM 7.2 MG/DL (8.5-10.1); CREATININE 0.93 MG/DL (0.60-1.30)
[2017-11-07 18:52] LABS: CALCIUM-PROTEIN CORRECTED 7.8 MG/DL (8.5-10.1)
[2017-11-07] MEDS: INSULIN DETEMIR 100 UNITS/ML VIAL SQ SCH (20:26)
[2017-11-07 21:36] LABS: MAGNESIUM 1.4 MG/DL (1.5-2.5)
[2017-11-07] MEDS ORDERED: POTASSIUM CHLORIDE 20 MEQ CONTROLLED RELEASE TAB PO ONE (22:00)
[2017-11-07] MEDS ORDERED: MAGNESIUM SULFATE 1 GM PREMIX 100 ML IV ONE (22:15)
[2017-11-07 22:34] LABS: BICARBONATE 31.5 MEQ/L (21.0-32.0); CREATININE 0.86 MG/DL (0.60-1.30); PHOSPHORUS 0.7 MG/DL (2.5-4.9)
[2017-11-07 22:51] LABS: CALCIUM-PROTEIN CORRECTED 7.7 MG/DL (8.5-10.1); TOTAL PROTEIN 5.7 GM/DL (6.4-8.2)
[2017-11-07] MEDS ORDERED: POTASSIUM CHLORIDE 25 MEQ EFFERVESCENT TAB PO ONE (23:00)
[2017-11-08] VITALS (17 sets, daily range): BP systolic 89–119; BP diastolic 55–75; PULSE 80–133; RESP 14–27; TEMP 98–99.6; O2SAT 93–98
[2017-11-08 04:46] LABS: INTERNATIONAL NORMALIZED RATIO 1.3 RATIO; PROTHROMBIN TIME - PATIENT 12.8 SEC (9.8-11.6)
[2017-11-08 04:50] LABS: BICARBONATE 34.7 MEQ/L (21.0-32.0); CREATININE 0.72 MG/DL (0.60-1.30)
[2017-11-08 05:08] LABS: CALCIUM-PROTEIN CORRECTED 7.7 MG/DL (8.5-10.1); TOTAL PROTEIN 5.8 GM/DL (6.4-8.2)
[2017-11-08 06:23] LABS: MAGNESIUM 1.4 MG/DL (1.5-2.5); PHOSPHORUS 1.1 MG/DL (2.5-4.9)
[2017-11-08] MEDS ORDERED: SODIUM CHLORID 0.9% 500 ML INJ 500 ML IV ONE (06:30)
[2017-11-08] MEDS ORDERED: POTASSIUM CHLORIDE 10 MEQ CONTROLLED RELEASE TAB PO ONE ×4 (06:30→16:00)
[2017-11-08] MEDS: POTASSIUM CHLOR 10 MEQ PREMIX 100 ML IV SCH ×6 (06:39→13:11)
[2017-11-08] MEDS ORDERED: POTASSIUM PHOSPHATE INJ 30 MMOL in SODIUM CHLOR 0.9% 250 ML INJ 250 ML IV ONE (06:45)
[2017-11-08] MEDS ORDERED: MAGNESIUM SULFATE 1 GM PREMIX 100 ML IV ONE (06:45)
--- NOTE | 2017-11-08 07:42 | HHI.PR ---
Subjective Remarks in no acute distress. abdominal pain is better. no vomiting or diarrhea. IV potassium replacement in process. d/w the RN at the bedside. Objective Vitals Vital Signs Date Time Temp Pulse Resp B/P (MAP) Pulse Ox O2 Delivery O2 Flow Rate FiO2 11/08/17 06:00 80 11/08/17 04:00 98.5 82 14 89/55 (66) 94 11/08/17 04:00 82 11/08/17 02:00 84 11/08/17 00:00 98.2 92 18 99/67 (78) 93 11/08/17 00:00 91 11/07/17 22:00 99 11/07/17 20:00 99.4 97 20 102/60 (74) 92 11/07/17 20:00 97 11/07/17 18:00 106 11/07/17 16:00 92 11/07/17 16:00 98.0 92 18 93/62 (72) 93 11/07/17 14:00 110 11/07/17 12:25 11/07/17 12:00 106 11/07/17 12:00 98.2 106 14 126/90 (102) 93 11/07/17 11:00 88 19 135/90 (105) 94 Room Air I/O 11/07/17 11/07/17 11/07/17 11/08/17 11/08/17 11/08/17 07:00 15:00 23:00 07:00 15:00 23:00 Intake Total 1161 ml 2320 ml Output Total 900 ml 1800 ml Balance 261 ml 520 ml Intake Oral 200 ml 960 ml IV Total 961 ml 1360 ml Output Urine Total 900 ml 1800 ml # Bowel Movements 0 1 Result Diagram: 11/07/17 0358 11/08/17 0527 Imaging Last Impressions Abdomen/Pelvis CT 11/06/17 1137 Signed Impressions: Service Date/Time: Monday, November 06, 2017 14:50 - CONCLUSION: 1. Findings of chronic pancreatitis with calcifications in the head and uncinate process, dilation of the pancreatic duct and marked atrophy of the mid body and tail. 2. Diffuse hepatic fatty infiltration. No focal mass lesions. 3. Findings of portal hypertension with a portosystemic shunt emanating from the origin of the portal vein and draining into the left renal vein. 4. Cholelithiasis Merlin Monteiro MD Objective Remarks GENERAL: This is a well-nourished, well-developed patient, in no apparent distress. CARDIOVASCULAR: Regular rate and regular rhythm without murmurs, gallops, or rubs. RESPIRATORY: Clear to auscultation. Breath sounds equal bilaterally. No wheezes , rales, or rhonchi. GASTROINTESTINAL: Abdomen soft, mild generalized tenderness, nondistended. Normal, active bowel sounds MUSCULOSKELETAL: Extremities without clubbing, cyanosis, or edema. NEURO: Alert & Oriented x4 to person, place, time, situation. Moves all ext x4 Medications and IVs Inpatient Medications Amylase/Lipase/ Protease (Creon 12-38-60) 1 cap TID PO Last administered on 11/07at 18:21; Start 11/06/17 at 18:00 Dextrose (D50w (Vial) Inj) 50 ml UNSCH PRN IV PUSH HYPOGLYCEMIA-SEE COMMENTS; Start 11/06/17 at 16:15 Flumazenil (Romazicon Inj) 0.2 mg Q1M PRN IV PUSH SEE LABEL COMMENTS; Start 11/06/17 at 16:15 Folic Acid (Folate) 1 mg DAILY PO Last administered on 11/07/17at 10:51; Start at 09:00; Stop 11/12/17 at 08:59 Glucagon (Glucagon Inj) 1 mg UNSCH PRN OTHER HYPOGLYCEMIA-SEE COMMENTS; Start 11/06/17 at 16:15 Insulin Aspart (NovoLOG SUPPLEMENTAL SCALE) 1 ACHS SLIDING SCALE SQ Last administered on 11/07/17at 20:26; Start 11/06/17 at 17:00 Insulin Detemir (Levemir Inj) 10 units HS SQ Last administered on 11/06/17at 23: 00; Start 11/06/17 at 21:00 Lactulose (Lactulose Liq) 30 ml DAILY PO Last administered on 11/07/17at 10:51; Start 11/07/17 at 09:00 Lorazepam (Ativan Inj) 2 mg Q15M PRN IV PUSH CIWA > 20; Start 11/06/17 at 16:15 Lorazepam (Ativan) 2 mg Q2H PRN PO CIWA 11-14; Start 11/06/17 at 16:15 Magnesium Oxide (Mag-Ox) 800 mg UNSCH PRN PO For Magnesium 1.2 - 1.6 mg/dL; Start 11/06/17 at 17:45; Stop 11/07/17 at 13:00; Status DC Magnesium Sulfate 2 gm/Sodium Chloride 100 ml @ 50 mls/hr UNSCH PRN IV For Magnesium 1.2 - 1.6 mg/dL; Start 11/06/17 at 17:45; Stop 11/07/17 at 13:00; Status DC Magnesium Sulfate 4 gm/Dextrose 100 ml @ 25 mls/hr ONCE IV Last administered on 11/06/17at 18:52; Start 11/06/17 at 17:00; Stop 11/06/17 at 20:59; Status DC Magnesium Sulfate 4 gm/Sodium Chloride 100 ml @ 50 mls/hr UNSCH PRN IV For Magnesium 0.9 - 1.1 mg/dL; Start 11/06/17 at 17:45; Stop 11/07/17 at 13:00; Status DC Magnesium Sulfate/ Dextrose 100 ml @ 100 mls/hr ONCE ONCE IV Last administered on 11/08/17at 07:21; Start 11/08/17 at 06:45; Stop 11/08/17 at 07:44 Metoclopramide HCl (Reglan Inj) 10 mg ONCE ONCE IV PUSH Last administered on at 17:24; Start 11/06/17 at 14:45; Stop 11/06/17 at 14:50; Status DC Metoprolol Succinate (Toprol Xl) 25 mg DAILY PO Last administered on 11/07/17at 10:51; Start 11/07/17 at 09:00 Morphine Sulfate (Morphine Inj) 4 mg ONCE ONCE IV PUSH Last administered on 11/06/17at 17:25; Start 11/06/17 at 16:15; Stop 11/06/17 at 16:16; Status DC Multivitamins/ Minerals Therapeutic (Theragran M Tab) 1 tab DAILY PO Last administered on 11/07/17at 10:51; Start 11/07/17 at 09:00; Stop 11/12/17 at 08:59 Ondansetron HCl (Zofran Inj) 4 mg Q6H PRN IV PUSH NAUSEA OR VOMITING Last administered on 11/07/17at 07:53; Start 11/06/17 at 16:15 Oxycodone HCl (Roxicodone) 5 mg Q6H PRN PO PAIN SCALE 4 TO 10 Last administered on 11/08/17at 04:04; Start 11/07/17 at 17:00 Pantoprazole Sodium (Protonix) 40 mg DAILY PO Last administered on 11/07/17at 10: 51; Start 11/07/17 at 09:00 Paroxetine HCl (Paxil) 40 mg DAILY PO Last administered on 11/07/17at 10:50; Start 11/07/17 at 09:00 Phytonadione (Mephyton Liq) 5 mg DAILY PO Last administered on 11/07/17at 10:51; Start 11/06/17 at 20:30; Stop 11/08/17 at 20:29 Potassium Chloride 30 meq/ Sodium Chloride 1,015 ml @ 100 mls/hr Q10H9M IV Last administered on 11/06/17at 19:37; Start 11/06/17 at 17:00; Stop 11/07/17 at 00: 28; Status DC Potassium Chloride/Sodium Chloride 1,000 ml @ 175 mls/hr Q5H43M IV Last administered on 11/07/17at 23:57; Start 11/07/17 at 00:30 Potassium Phosphate (K-Phos) 2,000 mg UNSCH PRN PO/TUBE SEE LABEL COMMENTS; Start 11/06/17 at 17:45; Stop 11/07/17 at 13:00; Status DC Potassium Phosphate 30 mmol/ Sodium Chloride 260 ml @ 43.333 mls/ hr ONCE ONCE IV Last administered on 11/08/17at 07:18; Start 11/08/17 at 06:45; Stop 04/18 at 12:44 Potassium Bicarb/ Potassium Chloride (K-Lyte Cl Eff) 25 meq ONCE ONCE PO Last administered on 11/07/17at 22:26; Start 11/07/17 at 23:00; Stop 11/07/17 at 23: 01; Status DC Potassium Chloride (KCl) 60 meq ONCE ONCE PO Last administered on 11/08/17at 06 :39; Start 11/08/17 at 06:30; Stop 11/08/17 at 06:33; Status DC Rifaximin (Xifaxan) 550 mg BID PO Last administered on 11/07/17at 20:25; Start at 21:00 Sodium Chloride 500 ml @ 500 mls/hr BOLUS ONCE IV Last administered on at 06:39; Start 11/08/17 at 06:30; Stop 11/08/17 at 07:29; Status DC Sodium Chloride (NS Flush) 2 ml BID IV FLUSH Last administered on 11/07/17at 20: 25; Start 11/06/17 at 21:00 Sodium Phosphate 30 mmol/Sodium Chloride 250 ml @ 42 mls/hr UNSCH PRN IV For Phosphorus < 2.5 mg/dL; Start 11/06/17 at 17:45; Stop 11/07/17 at 13:00; Status DC Thiamine HCl (Vitamin B1) 100 mg DAILY PO ; Start 11/07/17 at 09:00 Thiamine HCl 100 mg/Sodium Chloride 101 ml @ 101 mls/hr ONCE ONCE IV Last administered on 11/07/17at 01:13; Start 11/07/17 at 00:45; Stop 11/07/17 at 01:44; Status DC A/P Problem List: (1) Acute liver failure ICD Code: K72.00 - Acute and subacute hepatic failure without coma Status: Acute (2) Hyponatremia ICD Code: E87.1 - Hypo-osmolality and hyponatremia Status: Acute (3) Hypokalemia ICD Code: E87.6 - Hypokalemia Status: Acute (4) Chronic pancreatitis ICD Code: K86.1 - Other chronic pancreatitis Status: Acute (5) Alcohol abuse ICD Code: F10.10 - Alcohol abuse Status: Chronic (6) Hypomagnesemia ICD Code: E83.42 - Hypomagnesemia Status: Acute (7) Diabetes ICD Code: E11.9 - Type 2 diabetes mellitus without complications (8) Elevated LFTs ICD Code: R79.89 - Other specified abnormal findings of blood chemistry (9) Hyperammonemia ICD Code: E72.20 - Disorder of urea cycle metabolism, unspecified Assessment and Plan A/P (1) Acute liver failure related to the patient's continuing use of alcohol. Patient has been counseled extensively. State he has quit before but currently does not appear to have a plan. Will avoid hepatotoxic agents. GI consult appreciated; started on Lactulose and Rifaximin. will continue to monitor the liver function. (2) Hyponatremia- improving. Likely combination of hypovolemic hyponatremia and chronic alcohol use. Hydrate with normal saline. sodium level has improved- continue to monitor. (3) Hypokalemia replace aggressively- will monitor the potassium level closely. (4) Chronic pancreatitis continue with Creon. (5) Alcohol abuse Patient was extensively counseled about the detrimental effects of alcohol on his health. CIWA per protocol. At risk for DTs. (6) Hypomagnesemia/ hypophosphatemia Replaced- levels improved- continue to monitor. (7) Diabetes - Type 2 diabetes mellitus without complications Noncompliant with insulin therapy. Levemir 10 units nightly and sliding scale insulin with Accu-Cheks. (8) coagulopathy- improving. continue with vitamin K- monitor for bleeding. will keep in ICU today in light of electrolyte abnormalities. Discharge Planning will continue to monitor the liver function and aggressively replace the electrolytes. not ready for discharge. Problem Qualifiers (1) Acute liver failure: Qualified Codes: K72.00 - Acute and subacute hepatic failure without coma (2) Chronic pancreatitis: Qualified Codes: K86.0 - Alcohol-induced chronic pancreatitis Amparo Castro MD November 08, 2017 07:42
[2017-11-08] MEDS: SODIUM CHLORIDE 0.9% FLUSH 10 ML FLUSH IV FLUSH SCH ×2 (07:49→20:19)
[2017-11-08] MEDS: RIFAXIMIN 550 MG TAB PO SCH ×2 (07:49→20:18)
[2017-11-08] MEDS: PANTOPRAZOLE SOD 40 MG DELAYED RELEASE TAB PO SCH (07:49)
[2017-11-08] MEDS: INSULIN ASPART SUPPLEMENTAL SCALE SQ SCH ×4 (07:49→20:19)
[2017-11-08] MEDS: MULTIVITAMINS/MINERALS THERAPEUTIC TAB PO SCH (07:49)
[2017-11-08] MEDS: LIPASE/PROTEASE/AMYLASE (12,000/38,000/60,000) CAP PO SCH ×3 (07:49→17:17)
[2017-11-08] MEDS: LACTULOSE SYRUP 20 GM/30 ML CUP PO SCH (07:50)
[2017-11-08] MEDS: THIAMINE HCL 100 MG TAB PO SCH (07:50)
[2017-11-08] MEDS: FOLIC ACID 1 MG TAB PO SCH (07:50)
[2017-11-08] MEDS: PARoxetine HCL 20 MG TAB PO SCH (07:50)
[2017-11-08] MEDS: METOPROLOL SUCCINATE 25 MG EXTENDED RELEASE TAB PO SCH (09:00)
[2017-11-08] MEDS: PHYTONADIONE 5 MG/SWFI 5 ML ORAL SYR PO SCH (09:00)
[2017-11-08] MEDS: 1/2 NS + KCL 20 MEQ INJ 1,000 ML IV SCH ×3 (09:48→21:44)
--- NOTE | 2017-11-08 11:52 | PD.RAD ---
Post Procedure Progress Note Pre Procedure Diagnosis: (1) Hyponatremia (2) Hypokalemia (3) Intractable abdominal pain Post Procedure Diagnosis: (1) Intractable abdominal pain (2) Acute liver failure (3) Leukocytosis (4) Hypokalemia (5) Hyponatremia Procedure Date: November 08, 2017 Supervising Radiologist: Merlin Monteiro Proceduralist/Assist: Caprice Vazquez RT(R) Anesthesia: Local Plan of Activity Patient to Unit: Nursing Unit Patient Condition: Good See PACS Report for procedural detail/treatment Central Venous Access Device Procedure 1 Right Subclavian Central Line Placement triple lumen Sudanese: 7 PICC Line Length (cm): 20 Merlin Monteiro MD November 08, 2017 11:52
[2017-11-08] MEDS ORDERED: SODIUM CHLORIDE 0.9% FLUSH 10 ML FLUSH IV FLUSH PRN (12:00)
--- NOTE | 2017-11-08 12:07 | RADRPT ---
EXAM DATE/TIME: 11/08/2017 11:47 [facility] COMPARISON: No previous studies available for comparison. INDICATIONS : Patient with a history of liver failure needs central line placement. MEDICAL HISTORY : acute liver failure Chronic alcohol dependence Pancreatitis Type 2 diabetes Depression SURGICAL HISTORY : Tonsillectomy ENCOUNTER: Initial ACUITY: 4-6 days PAIN SCORE: 4/10 LOCATION: low back FLUORO TIME: 0.45 minutes IMAGE SERIES: 1 ACCESS: Right internal jugular vein DEVICE(S): 1.) 7 Hungarian triple lumen 20 cm Central line PROCEDURE : 1. Ultrasound guided venipuncture. 2. Central line placement. The risks, benefits and alternatives to the procedure were explained and verbal and written consent w as obtained. The site was prepped in sterile fashion. Full sterile technique was used, including ca p, mask, sterile gloves and gown and a large sterile sheet. Hand hygiene and 2% chlorhexidine prep w as utilized per protocol for cutaneous antisepsis with appropriate dry time for site. Sterile gel an d sterile probe cover were utilized for ultrasound guidance. The skin and subcutaneous tissues were infiltrated with local anesthetic solution. With ultrasound guidance a dermatotomy in the neck was created and subcutaneous dissection was perfor med. A micropuncture set was used to gain access and serial dilatation was performed to accept the c atheter as prescribed above. The catheter was fixed in place with suture and a sterile dressing was a pplied. The patient tolerated the procedure well and there were no complications. Chest radiograph is to be obtained to document position. CONCLUSION: Uncomplicated line placement as above. Merlin Monteiro MD on November 08, 2017 at 12:04 Board Certified Radiologist. This report was verified electronically.
[2017-11-08 14:51] LABS: ALBUMIN 2.3 GM/DL (3.4-5.0); BICARBONATE 35.8 MEQ/L (21.0-32.0); CREATININE 0.81 MG/DL (0.60-1.30); DIRECT BILIRUBIN ADULT 8.7 MG/DL (0.0-0.2); INDIRECT BILIRUBIN 1.5 MG/DL (0.0-0.8); MAGNESIUM 1.3 MG/DL (1.5-2.5); PHOSPHORUS 0.8 MG/DL (2.5-4.9); TOTAL BILIRUBIN ADULT 10.2 MG/DL (0.2-1.0); TOTAL PROTEIN 5.9 GM/DL (6.4-8.2)
[2017-11-08 15:25] LABS: CALCIUM-PROTEIN CORRECTED 7.6 MG/DL (8.5-10.1)
[2017-11-08] MEDS: POTASSIUM CHLOR 20 MEQ PREMIX 100 ML IV SCH ×2 (16:14→17:17)
[2017-11-08] MEDS: LORazepam 1 MG TAB PO PRN (17:17)
[2017-11-08] MEDS ORDERED: POTASSIUM CHLORIDE 20 MEQ CONTROLLED RELEASE TAB PO ONE (20:00)
[2017-11-08] MEDS: INSULIN DETEMIR 100 UNITS/ML VIAL SQ SCH (20:18)
[2017-11-08 23:36] LABS: BICARBONATE 34.7 MEQ/L (21.0-32.0); CALCIUM 6.5 MG/DL (8.5-10.1); CREATININE 0.78 MG/DL (0.60-1.30)
[2017-11-08 23:52] LABS: TOTAL PROTEIN 5.7 GM/DL (6.4-8.2)
[2017-11-08 23:56] LABS: CALCIUM-PROTEIN CORRECTED 7.2 MG/DL (8.5-10.1)
[2017-11-09] VITALS (12 sets, daily range): BP systolic 88–108; BP diastolic 66–74; PULSE 81–117; RESP 16–21; TEMP 98–99.2; O2SAT 92–95
[2017-11-09] MEDS ORDERED: CALCIUM GLUCONATE INJ 1 GM in DEXTROSE 5% IN WATER 100ML INJ 100 ML IV ONE ×2 (00:15)
[2017-11-09] MEDS: LORazepam 2 MG/ML VIAL IV PUSH PRN ×3 (00:26→13:29)
[2017-11-09] MEDS: MAGNESIUM SULFATE 1 GM PREMIX 100 ML IV SCH ×2 (00:27→01:32)
[2017-11-09] MEDS: POTASSIUM CHLOR 40 MEQ PREMIX 100 ML IV SCH ×2 (01:18→05:38)
[2017-11-09] MEDS ORDERED: POTASSIUM CHLORIDE 20 MEQ CONTROLLED RELEASE TAB PO ONE (03:00)
[2017-11-09] MEDS: 1/2 NS + KCL 20 MEQ INJ 1,000 ML IV SCH ×3 (03:40→16:12)
[2017-11-09 07:07] LABS: BICARBONATE 37.4 MEQ/L (21.0-32.0); CALCIUM 6.9 MG/DL (8.5-10.1); CREATININE 0.64 MG/DL (0.60-1.30)
[2017-11-09 07:21] LABS: CALCIUM-PROTEIN CORRECTED 7.8 MG/DL (8.5-10.1); TOTAL PROTEIN 5.4 GM/DL (6.4-8.2)
[2017-11-09] MEDS: INSULIN ASPART SUPPLEMENTAL SCALE SQ SCH ×4 (08:00→20:50)
[2017-11-09 08:01] LABS: MAGNESIUM 1.6 MG/DL (1.5-2.5); PHOSPHORUS 0.2 MG/DL (2.5-4.9)
--- NOTE | 2017-11-09 08:01 | HHI.PR ---
Subjective Remarks in no acute distress. denies abdominal pain, nausea, vomiting or diarrhea. d/w the RN and no acute issues over night. Objective Vitals Vital Signs Date Time Temp Pulse Resp B/P (MAP) Pulse Ox O2 Delivery O2 Flow Rate FiO2 11/09/17 06:00 94 11/09/17 04:00 98.0 99 18 97/66 (76) 92 11/09/17 04:00 99 11/09/17 02:00 98 11/09/17 00:00 117 11/09/17 00:00 99.2 117 19 108/74 (85) 93 11/08/17 22:00 101 11/08/17 20:00 99.6 101 17 95/65 (75) 94 11/08/17 20:00 101 11/08/17 18:00 101 11/08/17 16:00 118 11/08/17 16:00 98.8 118 27 116/68 (84) 93 11/08/17 14:05 14 11/08/17 14:00 103 11/08/17 13:15 106 15 119/75 (90) 95 11/08/17 12:33 95 19 113/72 (86) 97 11/08/17 12:03 95 19 117/70 (86) 96 11/08/17 12:00 97 11/08/17 12:00 99.4 97 20 117/70 (86) 98 11/08/17 11:48 99.4 93 17 109/67 (81) 96 11/08/17 10:01 100 11/08/17 10:00 133 11/08/17 08:00 98.0 93 14 100/70 (80) 95 11/08/17 08:00 93 I/O 11/08/17 11/08/17 11/08/17 11/09/17 11/09/17 11/09/17 07:00 15:00 23:00 07:00 15:00 23:00 Intake Total 2320 ml 2460 ml 1600 ml 1400 ml Output Total 1800 ml 1750 ml 1730 ml Balance 520 ml 2460 ml -150 ml -330 ml Intake Oral 960 ml 400 ml IV Total 1360 ml 2460 ml 1200 ml 1400 ml Output Urine Total 1800 ml 1750 ml 1730 ml # Bowel Movements 1 5 0 Result Diagram: 11/07/17 0358 11/09/17 0424 Imaging Last Impressions Central Venous Line 11/08/17 0000 Signed Impressions: Service Date/Time: October 11:47 - CONCLUSION: Uncomplicated line placement as above. Merlin Monteiro MD Abdomen/Pelvis CT 11/06/17 1137 Signed Impressions: Service Date/Time: Monday, November 06, 2017 14:50 - CONCLUSION: 1. Findings of chronic pancreatitis with calcifications in the head and uncinate process, dilation of the pancreatic duct and marked atrophy of the mid body and tail. 2. Diffuse hepatic fatty infiltration. No focal mass lesions. 3. Findings of portal hypertension with a portosystemic shunt emanating from the origin of the portal vein and draining into the left renal vein. 4. Cholelithiasis Merlin Monteiro MD Objective Remarks GENERAL: This is a well-nourished, well-developed patient, in no apparent distress. CARDIOVASCULAR: Regular rate and regular rhythm without murmurs, gallops, or rubs. RESPIRATORY: Clear to auscultation. Breath sounds equal bilaterally. No wheezes , rales, or rhonchi. GASTROINTESTINAL: Abdomen soft, mild generalized tenderness, nondistended. Normal, active bowel sounds MUSCULOSKELETAL: Extremities without clubbing, cyanosis, or edema. NEURO: Alert & Oriented x4 to person, place, time, situation. Moves all ext x4 Procedures central line placement. Medications and IVs Inpatient Medications Amylase/Lipase/ Protease (Creon 12-38-60) 1 cap TID PO Last administered on 04/18at 17:17; Start 11/06/17 at 18:00 Calcium Gluconate 1 gm/Dextrose 110 ml @ 110 mls/hr ONCE ONCE IV Last administered on 11/09/17at 01:08; Start 11/09/17 at 00:15; Stop 11/09/17 at 01:14 ; Status DC Dextrose (D50w (Vial) Inj) 50 ml UNSCH PRN IV PUSH HYPOGLYCEMIA-SEE COMMENTS; Start 11/06/17 at 16:15 Flumazenil (Romazicon Inj) 0.2 mg Q1M PRN IV PUSH SEE LABEL COMMENTS; Start 11/06/17 at 16:15 Folic Acid (Folate) 1 mg DAILY PO Last administered on 11/08/17at 07:50; Start 11/07/17 at 09:00; Stop 11/12/17 at 08:59 Glucagon (Glucagon Inj) 1 mg UNSCH PRN OTHER HYPOGLYCEMIA-SEE COMMENTS; Start 11/06/17 at 16:15 Insulin Aspart (NovoLOG SUPPLEMENTAL SCALE) 1 ACHS SLIDING SCALE SQ Last administered on 11/08/17at 20:19; Start 11/06/17 at 17:00 Insulin Detemir (Levemir Inj) 10 units HS SQ Last administered on 11/08/17at 20: 18; Start 11/06/17 at 21:00 Lactulose (Lactulose Liq) 30 ml DAILY PO Last administered on 11/08/17at 07:50; Start 11/07/17 at 09:00 Lorazepam (Ativan Inj) 2 mg Q15M PRN IV PUSH CIWA > 20; Start 11/06/17 at 16:15 Lorazepam (Ativan) 2 mg Q2H PRN PO CIWA 11-14; Start 11/06/17 at 16:15 Magnesium Oxide (Mag-Ox) 800 mg UNSCH PRN PO For Magnesium 1.2 - 1.6 mg/dL; Start 11/06/17 at 17:45; Stop 11/07/17 at 13:00; Status DC Magnesium Sulfate 2 gm/Sodium Chloride 100 ml @ 50 mls/hr UNSCH PRN IV For Magnesium 1.2 - 1.6 mg/dL; Start 11/06/17 at 17:45; Stop 11/07/17 at 13:00; Status DC Magnesium Sulfate 4 gm/Dextrose 100 ml @ 25 mls/hr ONCE IV Last administered on 11/06/17at 18:52; Start 11/06/17 at 17:00; Stop 11/06/17 at 20:59; Status DC Magnesium Sulfate 4 gm/Sodium Chloride 100 ml @ 50 mls/hr UNSCH PRN IV For Magnesium 0.9 - 1.1 mg/dL; Start 11/06/17 at 17:45; Stop 11/07/17 at 13:00; Status DC Magnesium Sulfate/ Dextrose 100 ml @ 100 mls/hr Q1H IV Last administered on 05/19at 01:32; Start 11/09/17 at 00:00; Stop 11/09/17 at 01:59; Status DC Metoclopramide HCl (Reglan Inj) 10 mg ONCE ONCE IV PUSH Last administered on 17:24; Start 11/06/17 at 14:45; Stop 11/06/17 at 14:50; Status DC Metoprolol Succinate (Toprol Xl) 25 mg DAILY PO Last administered on 11/07/17 10:51; Start 11/07/17 at 09:00 Morphine Sulfate (Morphine Inj) 4 mg ONCE ONCE IV PUSH Last administered on 17:25; Start 11/06/17 at 16:15; Stop 11/06/17 at 16:16; Status DC Multivitamins/ Minerals Therapeutic (Theragran M Tab) 1 tab DAILY PO Last administered on 11/08/17 07:49; Start 11/07/17 at 09:00; Stop 11/12/17 at 08:59 Ondansetron HCl (Zofran Inj) 4 mg Q6H PRN IV PUSH NAUSEA OR VOMITING Last administered on 11/07/17at 07:53; Start 11/06/17 at 16:15 Oxycodone HCl (Roxicodone) 5 mg Q6H PRN PO PAIN SCALE 4 TO 10 Last administered on 11/08/17 19:06; Start 11/07/17 at 17:00 Pantoprazole Sodium (Protonix) 40 mg DAILY PO Last administered on 11/08/17 07 :49; Start 11/07/17 at 09:00 Paroxetine HCl (Paxil) 40 mg DAILY PO Last administered on 11/08/17 07:50; Start 11/07/17 at 09:00 Phytonadione (Mephyton Liq) 5 mg DAILY PO Last administered on 11/08/17at 09:00 ; Start 11/06/17 at 20:30; Stop 11/08/17 at 20:29; Status DC Potassium Chloride 30 meq/ Sodium Chloride 1,015 ml @ 100 mls/hr Q10H9M IV Last administered on 11/06/17 19:37; Start 11/06/17 at 17:00; Stop 11/07/17 at 00: 28; Status DC Potassium Chloride/Sodium Chloride 1,000 ml @ 175 mls/hr Q5H43M IV Last administered on 11/09/17at 03:40; Start 11/07/17 at 00:30 Potassium Phosphate (K-Phos) 2,000 mg UNSCH PRN PO/TUBE SEE LABEL COMMENTS; Start 11/06/17 at 17:45; Stop 11/07/17 at 13:00; Status DC Potassium Phosphate 30 mmol/ Sodium Chloride 260 ml @ 43.333 mls/ hr ONCE ONCE IV Last administered on 11/08/17at 07:18; Start 11/08/17 at 06:45; Stop 04/18 at 12:44; Status DC Potassium Bicarb/ Potassium Chloride (K-Lyte Cl Eff) 25 meq ONCE ONCE PO Last administered on 11/07/17at 22:26; Start 11/07/17 at 23:00; Stop 11/07/17 at 23: 01; Status DC Potassium Chloride (KCl) 40 meq ONCE ONCE PO Last administered on 11/09/17at 03 :41; Start 11/09/17 at 03:00; Stop 11/09/17 at 03:01; Status DC Rifaximin (Xifaxan) 550 mg BID PO Last administered on 11/08/17at 20:18; Start 11/06/17 at 21:00 Sodium Chloride (NS Flush) UNSCH PRN IV FLUSH SEE PROTOCOL; Start 11/08/17 at 12:00 Sodium Phosphate 30 mmol/Sodium Chloride 250 ml @ 42 mls/hr UNSCH PRN IV For Phosphorus < 2.5 mg/dL; Start 11/06/17 at 17:45; Stop 11/07/17 at 13:00; Status DC Thiamine HCl (Vitamin B1) 100 mg DAILY PO Last administered on 11/08/17at 07:50 ; Start 11/07/17 at 09:00 Thiamine HCl 100 mg/Sodium Chloride 101 ml @ 101 mls/hr ONCE ONCE IV Last administered on 11/07/17at 01:13; Start 11/07/17 at 00:45; Stop 11/07/17 at 01:44; Status DC A/P Problem List: (1) Acute liver failure ICD Code: K72.00 - Acute and subacute hepatic failure without coma Status: Acute (2) Hyponatremia ICD Code: E87.1 - Hypo-osmolality and hyponatremia Status: Acute (3) Hypokalemia ICD Code: E87.6 - Hypokalemia Status: Acute (4) Chronic pancreatitis ICD Code: K86.1 - Other chronic pancreatitis Status: Acute (5) Alcohol abuse ICD Code: F10.10 - Alcohol abuse Status: Chronic (6) Hypomagnesemia ICD Code: E83.42 - Hypomagnesemia Status: Acute (7) Diabetes ICD Code: E11.9 - Type 2 diabetes mellitus without complications (8) Elevated LFTs ICD Code: R79.89 - Other specified abnormal findings of blood chemistry (9) Hyperammonemia ICD Code: E72.20 - Disorder of urea cycle metabolism, unspecified Assessment and Plan A/P (1) Acute liver failure related to the patient's continuing use of alcohol. Patient has been counseled extensively. State he has quit before but currently does not appear to have a plan. Will avoid hepatotoxic agents. GI consult appreciated; started on Lactulose and Rifaximin. will continue to monitor the liver function. (2) Hyponatremia- improving. Likely combination of hypovolemic hyponatremia and chronic alcohol use. Hydrate with normal saline. sodium level has improved- continue to monitor. (3) Hypokalemia/ hypomagnesemia and hypophosphatemia- likely alcohol- related. replace aggressively- will monitor the potassium level closely. (4) Chronic pancreatitis continue with Creon. (5) Alcohol abuse Patient was extensively counseled about the detrimental effects of alcohol on his health. CIWA per protocol. At risk for DTs. (6) Diabetes - Type 2 diabetes mellitus without complications Noncompliant with insulin therapy. Levemir 10 units nightly and sliding scale insulin with Accu-Cheks. (7) coagulopathy- improving. continue with vitamin K- monitor for bleeding. will continue to monitor in ICU today. Discharge Planning will continue to monitor the liver function and aggressively replace the electrolytes. not ready for discharge. Problem Qualifiers (1) Acute liver failure: Qualified Codes: K72.00 - Acute and subacute hepatic failure without coma (2) Chronic pancreatitis: Qualified Codes: K86.0 - Alcohol-induced chronic pancreatitis Amparo Castro MD November 09, 2017 08:01
[2017-11-09] MEDS: LIPASE/PROTEASE/AMYLASE (12,000/38,000/60,000) CAP PO SCH ×3 (09:45→19:13)
[2017-11-09] MEDS: FOLIC ACID 1 MG TAB PO SCH (09:45)
[2017-11-09] MEDS: PANTOPRAZOLE SOD 40 MG DELAYED RELEASE TAB PO SCH (09:45)
[2017-11-09] MEDS: METOPROLOL SUCCINATE 25 MG EXTENDED RELEASE TAB PO SCH (09:45)
[2017-11-09] MEDS: RIFAXIMIN 550 MG TAB PO SCH ×2 (09:45→20:47)
[2017-11-09] MEDS: MULTIVITAMINS/MINERALS THERAPEUTIC TAB PO SCH (09:45)
[2017-11-09] MEDS: LACTULOSE SYRUP 20 GM/30 ML CUP PO SCH (09:45)
[2017-11-09] MEDS: THIAMINE HCL 100 MG TAB PO SCH (09:45)
[2017-11-09] MEDS: SODIUM CHLORIDE 0.9% FLUSH 10 ML FLUSH IV FLUSH SCH ×3 (09:46→20:49)
[2017-11-09] MEDS: PARoxetine HCL 20 MG TAB PO SCH (13:29)
[2017-11-09 15:45] LABS: BICARBONATE 41.7 MEQ/L (21.0-32.0); BLOOD UREA NITROGEN LESS THAN 1 MG/DL (7-18); CHLORIDE 83 MEQ/L (98-107); CREATININE 0.49 MG/DL (0.60-1.30); GLOMERULAR FILTRATION RATE 186 ML/MIN (>89); GLUCOSE,RANDOM 111 MG/DL (74-106); SODIUM (NA) 134 MEQ/L (136-145)
[2017-11-09 16:04] LABS: CALCIUM-PROTEIN CORRECTED 7.8 MG/DL (8.5-10.1); MAGNESIUM 1.3 MG/DL (1.5-2.5); PHOSPHORUS 0.4 MG/DL (2.5-4.9); TOTAL PROTEIN 5.6 GM/DL (6.4-8.2)
[2017-11-09] MEDS ORDERED: MAGNESIUM SULFATE 1 GM PREMIX 100 ML IV ONE (17:00)
[2017-11-09] MEDS: POTASSIUM CHLOR 10 MEQ PREMIX 100 ML IV SCH ×6 (17:46→22:06)
[2017-11-09] MEDS: NS + KCL 40 MEQ INJ 1,000 ML IV SCH (17:47)
[2017-11-09] MEDS ORDERED: POTASSIUM PHOSPHATE INJ 30 MMOL in SODIUM CHLOR 0.9% 250 ML INJ 250 ML IV ONE (18:00)
[2017-11-09] MEDS ORDERED: POTASSIUM CHLORIDE 10 MEQ CONTROLLED RELEASE TAB PO ONE ×2 (19:00→22:00)
[2017-11-09] MEDS: LORazepam 1 MG TAB PO PRN (20:47)
[2017-11-09] MEDS: INSULIN DETEMIR 100 UNITS/ML VIAL SQ SCH (20:49)
--- NOTE | 2017-11-09 20:56 | HHI.GIFU ---
Subjective Remarks alert/ oeirnted x 3 Nad K low 1.8... High urinary output? otherwise appears stable Objective Vitals I&O Vital Signs Date Time Temp Pulse Resp B/P (MAP) Pulse Ox O2 Delivery O2 Flow Rate FiO2 11/09/17 18:00 86 11/09/17 16:00 81 11/09/17 16:00 98.3 88 16 94/68 (77) 94 11/09/17 14:00 83 11/09/17 12:00 86 11/09/17 12:00 98.1 86 16 108/70 (83) 94 11/09/17 10:00 94 11/09/17 08:00 98.4 93 16 108/70 (83) 94 11/09/17 08:00 93 11/09/17 06:00 94 11/09/17 04:00 98.0 99 18 97/66 (76) 92 11/09/17 04:00 99 11/09/17 02:00 98 11/09/17 00:00 117 11/09/17 00:00 99.2 117 19 108/74 (85) 93 11/08/17 22:00 101 I/O 11/08/17 11/08/17 11/08/17 11/09/17 11/09/17 11/09/17 07:00 15:00 23:00 07:00 15:00 23:00 Intake Total 2320 ml 2460 ml 1600 ml 1400 ml 975 ml 4264 ml Output Total 1800 ml 1750 ml 1730 ml 3200 ml Balance 520 ml 2460 ml -150 ml -330 ml 975 ml 1064 ml Intake Oral 960 ml 400 ml 450 ml IV Total 1360 ml 2460 ml 1200 ml 1400 ml 975 ml 3814 ml Output Urine Total 1800 ml 1750 ml 1730 ml 3200 ml # Bowel Movements 1 5 0 Laboratory Laboratory Tests Test 11/08/17 22:09 11/09/17 04:24 11/09/17 13:50 Blood Urea Nitrogen 2 2 LESS THAN 1 Creatinine 0.78 0.64 0.49 Random Glucose 176 83 111 Total Protein 5.7 5.4 5.6 Calcium Level 6.5 6.9 7.0 Magnesium Level 1.0 1.6 1.3 Sodium Level 129 131 134 Potassium Level 2.2 2.3 1.8 Chloride Level 82 82 83 Carbon Dioxide Level 34.7 37.4 41.7 Anion Gap 12 12 9 Estimat Glomerular Filtration Rate 109 136 186 Protein Corrected Calcium 7.2 7.8 7.8 Phosphorus Level 0.2 0.4 Imaging Laboratory Tests Test 11/06/17 00:00 11/06/17 12:04 11/06/17 12:10 11/06/17 12:36 Salicylates Level LESS THAN 1.7 MG/DL Activated Partial Thromboplast Time 34.8 SEC Total Creatine Kinase 36 U/L Troponin I LESS THAN 0.02 NG/ML Lipase 161 U/L Ethyl Alcohol Level LESS THAN 3 MG/DL Ammonia 69 MCMOL/L Urine Color DARK-YELLOW Urine Turbidity HAZY Urine pH 6.5 Urine Specific Mccoy 1.021 Urine Protein 300 mg/dL Urine Glucose (UA) 70 mg/dL Urine Ketones 150 mg/dL Urine Occult Blood SMALL Urine Nitrite NEG Urine Bilirubin LARGE Urine Urobilinogen 8.0 MG/DL Urine Leukocyte Esterase NEG Urine RBC 2 /hpf Urine WBC 5 /hpf Urine Squamous Epithelial Cells <1 /hpf Urine Hyaline Casts 157 /lpf Urine Granular Casts 5 /lpf Urine Mucus FEW /lpf Microscopic Urinalysis Comment CULT NOT INDICATED Urine Opiates Screen NEG Urine Barbiturates Screen NEG Urine Amphetamines Screen NEG Urine Benzodiazepines Screen POS Urine Cocaine Screen NEG Urine Cannabinoids Screen NEG Test 11/06/17 22:25 11/07/17 01:49 11/07/17 02:00 11/07/17 03:58 Acetaminophen Level LESS THAN 2.0 MCG/ML B-Hydroxybutyrate 14.09 MMOL/L Blood Gas Puncture Site RT RADIAL Blood Gas Patient Temperature 98.6 Blood Gas HCO3 17 mmol/L Blood Gas Base Excess -6.6 mmol/L Blood Gas Oxygen Saturation 94 % Arterial Blood pH 7.43 Arterial Blood Partial Pressure CO2 26 mmHg Arterial Blood Partial Pressure O2 86 mmHG Arterial Blood Oxygen Content 12.5 Vol % Arterial Blood Carboxyhemoglobin 2.4 % Arterial Blood Methemoglobin 0.7 % Blood Gas Hemoglobin 9.4 G/DL Oxygen Delivery Device ROOM AIR Blood Gas Inspired Oxygen 21 % Lactic Acid Level 0.8 mmol/L White Blood Count 11.1 TH/MM3 Red Blood Count 3.14 MIL/MM3 Hemoglobin 10.5 GM/DL Hematocrit 30.0 % Mean Corpuscular Volume 95.6 FL Mean Corpuscular Hemoglobin 33.6 PG Mean Corpuscular Hemoglobin Concent 35.1 % Red Cell Distribution Width 12.7 % Platelet Count 161 TH/MM3 Mean Platelet Volume 8.3 FL Neutrophils (%) (Auto) 84.1 % Lymphocytes (%) (Auto) 4.7 % Monocytes (%) (Auto) 10.5 % Eosinophils (%) (Auto) 0.4 % Basophils (%) (Auto) 0.3 % Neutrophils # (Auto) 9.3 TH/MM3 Lymphocytes # (Auto) 0.5 TH/MM3 Monocytes # (Auto) 1.2 TH/MM3 Eosinophils # (Auto) 0.0 TH/MM3 Basophils # (Auto) 0.0 TH/MM3 CBC Comment DIFF FINAL Differential Comment Test 11/07/17 04:36 11/07/17 13:00 11/08/17 03:32 11/08/17 08:07 Serum Osmolality 296 MOSM/KG Nasal Screen MRSA (PCR) MRSA NOT DETECTED Prothrombin Time 12.8 SEC Prothromb Time International Ratio 1.3 RATIO Random Cortisol 28.3 MCG/DL Test 11/08/17 14:01 11/09/17 13:50 Blood Urea Nitrogen 2 MG/DL LESS THAN 1 MG/DL Creatinine 0.81 MG/DL 0.49 MG/DL Random Glucose 114 MG/DL 111 MG/DL Total Protein 5.9 GM/DL 5.6 GM/DL Albumin 2.3 GM/DL Calcium Level 7.0 MG/DL 7.0 MG/DL Phosphorus Level 0.8 MG/DL 0.4 MG/DL Magnesium Level 1.3 MG/DL 1.3 MG/DL Alkaline Phosphatase 229 U/L Aspartate Amino Transf (AST/SGOT) 104 U/L Alanine Aminotransferase (ALT/SGPT) 42 U/L Total Bilirubin 10.2 MG/DL Direct Bilirubin 8.7 MG/DL Sodium Level 130 MEQ/L 134 MEQ/L Potassium Level 2.2 MEQ/L 1.8 MEQ/L Chloride Level 82 MEQ/L 83 MEQ/L Carbon Dioxide Level 35.8 MEQ/L 41.7 MEQ/L Indirect Bilirubin 1.5 MG/DL Anion Gap 9 MEQ/L Estimat Glomerular Filtration Rate 186 ML/MIN Protein Corrected Calcium 7.8 MG/DL Physical Exam Last 48 hours Impressions Central Venous Line 11/08/17 0000 Signed Impressions: Service Date/Time: October 11:47 - CONCLUSION: Uncomplicated line placement as above. Merlin Monteiro MD Laboratory Tests Test 11/06/17 00:00 11/06/17 12:04 11/06/17 12:10 11/06/17 12:36 Salicylates Level LESS THAN 1.7 MG/DL Activated Partial Thromboplast Time 34.8 SEC Total Creatine Kinase 36 U/L Troponin I LESS THAN 0.02 NG/ML Lipase 161 U/L Ethyl Alcohol Level LESS THAN 3 MG/DL Ammonia 69 MCMOL/L Urine Color DARK-YELLOW Urine Turbidity HAZY Urine pH 6.5 Urine Specific Mccoy 1.021 Urine Protein 300 mg/dL Urine Glucose (UA) 70 mg/dL Urine Ketones 150 mg/dL Urine Occult Blood SMALL Urine Nitrite NEG Urine Bilirubin LARGE Urine Urobilinogen 8.0 MG/DL Urine Leukocyte Esterase NEG Urine RBC 2 /hpf Urine WBC 5 /hpf Urine Squamous Epithelial Cells <1 /hpf Urine Hyaline Casts 157 /lpf Urine Granular Casts 5 /lpf Urine Mucus FEW /lpf Microscopic Urinalysis Comment CULT NOT INDICATED Urine Opiates Screen NEG Urine Barbiturates Screen NEG Urine Amphetamines Screen NEG Urine Benzodiazepines Screen POS Urine Cocaine Screen NEG Urine Cannabinoids Screen NEG Test 11/06/17 22:25 11/07/17 01:49 11/07/17 02:00 11/07/17 03:58 Acetaminophen Level LESS THAN 2.0 MCG/ML B-Hydroxybutyrate 14.09 MMOL/L Blood Gas Puncture Site RT RADIAL Blood Gas Patient Temperature 98.6 Blood Gas HCO3 17 mmol/L Blood Gas Base Excess -6.6 mmol/L Blood Gas Oxygen Saturation 94 % Arterial Blood pH 7.43 Arterial Blood Partial Pressure CO2 26 mmHg Arterial Blood Partial Pressure O2 86 mmHG Arterial Blood Oxygen Content 12.5 Vol % Arterial Blood Carboxyhemoglobin 2.4 % Arterial Blood Methemoglobin 0.7 % Blood Gas Hemoglobin 9.4 G/DL Oxygen Delivery Device ROOM AIR Blood Gas Inspired Oxygen 21 % Lactic Acid Level 0.8 mmol/L White Blood Count 11.1 TH/MM3 Red Blood Count 3.14 MIL/MM3 Hemoglobin 10.5 GM/DL Hematocrit 30.0 % Mean Corpuscular Volume 95.6 FL Mean Corpuscular Hemoglobin 33.6 PG Mean Corpuscular Hemoglobin Concent 35.1 % Red Cell Distribution Width 12.7 % Platelet Count 161 TH/MM3 Mean Platelet Volume 8.3 FL Neutrophils (%) (Auto) 84.1 % Lymphocytes (%) (Auto) 4.7 % Monocytes (%) (Auto) 10.5 % Eosinophils (%) (Auto) 0.4 % Basophils (%) (Auto) 0.3 % Neutrophils # (Auto) 9.3 TH/MM3 Lymphocytes # (Auto) 0.5 TH/MM3 Monocytes # (Auto) 1.2 TH/MM3 Eosinophils # (Auto) 0.0 TH/MM3 Basophils # (Auto) 0.0 TH/MM3 CBC Comment DIFF FINAL Differential Comment Test 11/07/17 04:36 11/07/17 13:00 11/08/17 03:32 11/08/17 08:07 Serum Osmolality 296 MOSM/KG Nasal Screen MRSA (PCR) MRSA NOT DETECTED Prothrombin Time 12.8 SEC Prothromb Time International Ratio 1.3 RATIO Random Cortisol 28.3 MCG/DL Test 11/08/17 14:01 11/09/17 13:50 Blood Urea Nitrogen 2 MG/DL LESS THAN 1 MG/DL Creatinine 0.81 MG/DL 0.49 MG/DL Random Glucose 114 MG/DL 111 MG/DL Total Protein 5.9 GM/DL 5.6 GM/DL Albumin 2.3 GM/DL Calcium Level 7.0 MG/DL 7.0 MG/DL Phosphorus Level 0.8 MG/DL 0.4 MG/DL Magnesium Level 1.3 MG/DL 1.3 MG/DL Alkaline Phosphatase 229 U/L Aspartate Amino Transf (AST/SGOT) 104 U/L Alanine Aminotransferase (ALT/SGPT) 42 U/L Total Bilirubin 10.2 MG/DL Direct Bilirubin 8.7 MG/DL Sodium Level 130 MEQ/L 134 MEQ/L Potassium Level 2.2 MEQ/L 1.8 MEQ/L Chloride Level 82 MEQ/L 83 MEQ/L Carbon Dioxide Level 35.8 MEQ/L 41.7 MEQ/L Indirect Bilirubin 1.5 MG/DL Anion Gap 9 MEQ/L Estimat Glomerular Filtration Rate 186 ML/MIN Protein Corrected Calcium 7.8 MG/DL Jaundiced/ icteric sclera NECK: Neck is supple, no JVD, no lymphadenopathy. CHEST: Chest is clear to auscultation and percussion. CARDIAC: Regular rate and rhythm with no murmur gallop or rubs. ABDOMEN: Liver 4 FB below RCM, tender in epigastric region bs pos EXTREMITIES: No clubbing, cyanosis, or edema. SKIN: Normal; no rash; no jaundice. Assessment and Plan Assessment: (1) Chronic pancreatitis ICD Codes: K86.1 - Other chronic pancreatitis Status: Acute (2) Hypokalemia ICD Codes: E87.6 - Hypokalemia Status: Acute (3) Alcohol withdrawal ICD Codes: F10.239 - Alcohol withdrawal syndrome Status: Acute (4) Hyperammonemia ICD Codes: E72.20 - Disorder of urea cycle metabolism, unspecified (5) Elevated LFTs ICD Codes: R79.89 - Other specified abnormal findings of blood chemistry (6) Alcohol abuse ICD Codes: F10.10 - Alcohol abuse Status: Chronic (7) Abdominal pain ICD Codes: R10.9 - Unspecified abdominal pain Status: Acute (8) Acute liver failure ICD Codes: K72.00 - Acute and subacute hepatic failure without coma Status: Acute (9) Noncompliance ICD Codes: Z91.19 - Patient's noncompliance with other medical treatment and regimen Status: Acute Plan continue present therapy . continue to correct hypo K, Problem Qualifiers (1) Chronic pancreatitis: Qualified Codes: K86.0 - Alcohol-induced chronic pancreatitis (2) Alcohol withdrawal: Qualified Codes: F10.230 - Alcohol dependence with withdrawal, uncomplicated (3) Abdominal pain: Qualified Codes: R10.9 - Unspecified abdominal pain (4) Acute liver failure: Qualified Codes: K72.00 - Acute and subacute hepatic failure without coma Molina Velasquez MD November 09, 2017 20:56
[2017-11-09 23:57] LABS: ALKALINE PHOSPHATASE 227 U/L (45-117); ALT (GPT) 37 U/L (12-78); AST (GOT) 79 U/L (15-37); BICARBONATE 39.1 MEQ/L (21.0-32.0); BLOOD UREA NITROGEN LESS THAN 1 MG/DL (7-18); CALCIUM 6.8 MG/DL (8.5-10.1); CHLORIDE 87 MEQ/L (98-107); CREATININE 0.54 MG/DL (0.60-1.30); DIRECT BILIRUBIN ADULT 8.7 MG/DL (0.0-0.2); GLOMERULAR FILTRATION RATE 166 ML/MIN (>89); GLUCOSE,RANDOM 80 MG/DL (74-106); INDIRECT BILIRUBIN 1.3 MG/DL (0.0-0.8); SODIUM (NA) 136 MEQ/L (136-145); TOTAL PROTEIN 5.3 GM/DL (6.4-8.2)
[2017-11-10] VITALS (13 sets, daily range): BP systolic 80–96; BP diastolic 55–64; PULSE 84–101; RESP 14–27; TEMP 97.7–98.5; O2SAT 95–99
[2017-11-10 00:15] LABS: CALCIUM-PROTEIN CORRECTED 7.7 MG/DL (8.5-10.1)
[2017-11-10] MEDS ORDERED: MAGNESIUM SULFATE 1 GM PREMIX 100 ML IV ONE ×2 (00:45→10:45)
[2017-11-10] MEDS: POTASSIUM CHLORIDE 10 MEQ CONTROLLED RELEASE TAB PO SCH ×3 (00:56→04:52)
[2017-11-10] MEDS: NS + KCL 40 MEQ INJ 1,000 ML IV SCH ×3 (02:45→22:45)
[2017-11-10 07:06] LABS: CALCIUM 6.8 MG/DL (8.5-10.1); CREATININE 0.56 MG/DL (0.60-1.30)
[2017-11-10 07:22] LABS: CALCIUM-PROTEIN CORRECTED 7.6 MG/DL (8.5-10.1); TOTAL PROTEIN 5.5 GM/DL (6.4-8.2)
[2017-11-10] MEDS: INSULIN ASPART SUPPLEMENTAL SCALE SQ SCH ×4 (08:00→21:00)
[2017-11-10] MEDS ORDERED: POTASSIUM CHLORIDE 10 MEQ CONTROLLED RELEASE TAB PO ONE ×3 (08:15→20:30)
--- NOTE | 2017-11-10 08:15 | HHI.PR ---
Subjective Remarks in no acute distress. denies pain. potassium level trend noted. d/w the RN and no other acute issues over night. Objective Vitals Vital Signs Date Time Temp Pulse Resp B/P (MAP) Pulse Ox O2 Delivery O2 Flow Rate FiO2 11/10/17 07:48 95 11/10/17 06:00 85 11/10/17 04:00 84 11/10/17 04:00 97.7 84 14 88/64 (72) 95 11/10/17 02:00 85 11/10/17 00:00 97.9 84 27 90/64 (73) 96 11/10/17 00:00 85 11/09/17 22:00 90 11/09/17 20:00 84 11/09/17 20:00 Room Air 11/09/17 20:00 98.3 98 21 88/68 (75) 95 11/09/17 18:00 86 11/09/17 16:00 81 11/09/17 16:00 98.3 88 16 94/68 (77) 94 11/09/17 14:00 83 11/09/17 12:00 86 11/09/17 12:00 98.1 86 16 108/70 (83) 94 11/09/17 10:00 94 I/O 11/09/17 11/09/17 11/09/17 11/10/17 11/10/17 11/10/17 07:00 15:00 23:00 07:00 15:00 23:00 Intake Total 1400 ml 975 ml 4664 ml 1117 ml Output Total 1730 ml 3200 ml 1550 ml Balance -330 ml 975 ml 1464 ml -433 ml Intake Oral 450 ml 240 ml IV Total 1400 ml 975 ml 4214 ml 877 ml Output Urine Total 1730 ml 3200 ml 1550 ml # Bowel Movements 0 1 Result Diagram: 11/07/17 0358 11/10/17 0552 Imaging Last Impressions Central Venous Line 11/08/17 0000 Signed Impressions: Service Date/Time: October 11:47 - CONCLUSION: Uncomplicated line placement as above. Merlin Monteiro MD Abdomen/Pelvis CT 11/06/17 1137 Signed Impressions: Service Date/Time: Monday, November 06, 2017 14:50 - CONCLUSION: 1. Findings of chronic pancreatitis with calcifications in the head and uncinate process, dilation of the pancreatic duct and marked atrophy of the mid body and tail. 2. Diffuse hepatic fatty infiltration. No focal mass lesions. 3. Findings of portal hypertension with a portosystemic shunt emanating from the origin of the portal vein and draining into the left renal vein. 4. Cholelithiasis Merlin Monteiro MD Objective Remarks GENERAL: This is a well-nourished, well-developed patient, in no apparent distress. CARDIOVASCULAR: Regular rate and regular rhythm without murmurs, gallops, or rubs. RESPIRATORY: Clear to auscultation. Breath sounds equal bilaterally. No wheezes , rales, or rhonchi. GASTROINTESTINAL: Abdomen soft, mild generalized tenderness, nondistended. Normal, active bowel sounds MUSCULOSKELETAL: Extremities without clubbing, cyanosis, or edema. NEURO: Alert & Oriented x4 to person, place, time, situation. Moves all ext x4 Procedures central line placement. Medications and IVs Inpatient Medications Amylase/Lipase/ Protease (Creon 12-38-60) 1 cap TID PO Last administered on 05/19at 19:13; Start 11/06/17 at 18:00 Calcium Gluconate 1 gm/Dextrose 110 ml @ 110 mls/hr ONCE ONCE IV Last administered on 11/09/17at 01:08; Start 11/09/17 at 00:15; Stop 11/09/17 at 01:14 ; Status DC Dextrose (D50w (Vial) Inj) 50 ml UNSCH PRN IV PUSH HYPOGLYCEMIA-SEE COMMENTS; Start 11/06/17 at 16:15 Flumazenil (Romazicon Inj) 0.2 mg Q1M PRN IV PUSH SEE LABEL COMMENTS; Start 11/06/17 at 16:15 Folic Acid (Folate) 1 mg DAILY PO Last administered on 11/09/17at 09:45; Start 11/07/17 at 09:00; Stop 11/12/17 at 08:59 Glucagon (Glucagon Inj) 1 mg UNSCH PRN OTHER HYPOGLYCEMIA-SEE COMMENTS; Start 11/06/17 at 16:15 Insulin Aspart (NovoLOG SUPPLEMENTAL SCALE) 1 ACHS SLIDING SCALE SQ Last administered on 11/09/17at 20:50; Start 11/06/17 at 17:00 Insulin Detemir (Levemir Inj) 10 units HS SQ Last administered on 11/09/17at 20: 49; Start 11/06/17 at 21:00 Lactulose (Lactulose Liq) 30 ml DAILY PO Last administered on 11/09/17at 09:45; Start 11/07/17 at 09:00 Lorazepam (Ativan Inj) 2 mg Q15M PRN IV PUSH CIWA > 20; Start 11/06/17 at 16:15 Lorazepam (Ativan) 2 mg Q2H PRN PO CIWA 11-14; Start 11/06/17 at 16:15 Magnesium Oxide (Mag-Ox) 800 mg UNSCH PRN PO For Magnesium 1.2 - 1.6 mg/dL; Start 11/06/17 at 17:45; Stop 11/07/17 at 13:00; Status DC Magnesium Sulfate 2 gm/Sodium Chloride 100 ml @ 50 mls/hr UNSCH PRN IV For Magnesium 1.2 - 1.6 mg/dL; Start 11/06/17 at 17:45; Stop 11/07/17 at 13:00; Status DC Magnesium Sulfate 4 gm/Dextrose 100 ml @ 25 mls/hr ONCE IV Last administered on 11/06/17at 18:52; Start 11/06/17 at 17:00; Stop 11/06/17 at 20:59; Status DC Magnesium Sulfate 4 gm/Sodium Chloride 100 ml @ 50 mls/hr UNSCH PRN IV For Magnesium 0.9 - 1.1 mg/dL; Start 11/06/17 at 17:45; Stop 11/07/17 at 13:00; Status DC Magnesium Sulfate/ Dextrose 100 ml @ 100 mls/hr ONCE ONCE IV Last administered on 11/10/17at 00:56; Start 11/10/17 at 00:45; Stop 11/10/17 at 01:44 ; Status DC Metoclopramide HCl (Reglan Inj) 10 mg ONCE ONCE IV PUSH Last administered on at 17:24; Start 11/06/17 at 14:45; Stop 11/06/17 at 14:50; Status DC Metoprolol Succinate (Toprol Xl) 25 mg DAILY PO Last administered on 11/09/17at 09:45; Start 11/07/17 at 09:00 Morphine Sulfate (Morphine Inj) 4 mg ONCE ONCE IV PUSH Last administered on 11/06/17at 17:25; Start 11/06/17 at 16:15; Stop 11/06/17 at 16:16; Status DC Multivitamins/ Minerals Therapeutic (Theragran M Tab) 1 tab DAILY PO Last administered on 11/09/17at 09:45; Start 11/07/17 at 09:00; Stop 11/12/17 at 08:59 Ondansetron HCl (Zofran Inj) 4 mg Q6H PRN IV PUSH NAUSEA OR VOMITING Last administered on 11/07/17at 07:53; Start 11/06/17 at 16:15 Oxycodone HCl (Roxicodone) 5 mg Q6H PRN PO PAIN SCALE 4 TO 10 Last administered on 11/09/17at 20:47; Start 11/07/17 at 17:00 Pantoprazole Sodium (Protonix) 40 mg DAILY PO Last administered on 11/09/17at 09 :45; Start 11/07/17 at 09:00 Paroxetine HCl (Paxil) 40 mg DAILY PO Last administered on 11/09/17at 13:29; Start 11/07/17 at 09:00 Phytonadione (Mephyton Liq) 5 mg DAILY PO Last administered on 11/08/17at 09:00 ; Start 11/06/17 at 20:30; Stop 11/08/17 at 20:29; Status DC Potassium Chloride 30 meq/ Sodium Chloride 1,015 ml @ 100 mls/hr Q10H9M IV Last administered on 11/06/17at 19:37; Start 11/06/17 at 17:00; Stop 11/07/17 at 00: 28; Status DC Potassium Chloride/Sodium Chloride 1,000 ml @ 100 mls/hr Q10H IV Last administered on 11/10/17at 02:45; Start 11/09/17 at 16:45 Potassium Phosphate (K-Phos) 2,000 mg UNSCH PRN PO/TUBE SEE LABEL COMMENTS; Start 11/06/17 at 17:45; Stop 11/07/17 at 13:00; Status DC Potassium Phosphate 30 mmol/ Sodium Chloride 260 ml @ 43.333 mls/ hr ONCE ONCE IV Last administered on 11/09/17at 19:13; Start 11/09/17 at 18:00; Stop 05/19 at 23:59; Status DC Potassium Bicarb/ Potassium Chloride (K-Lyte Cl Eff) 25 meq ONCE ONCE PO Last administered on 11/07/17at 22:26; Start 11/07/17 at 23:00; Stop 11/07/17 at 23: 01; Status DC Potassium Chloride (KCl) 40 meq Q2HR PO Last administered on 11/10/17at 04:52; Start 11/10/17 at 01:00; Stop 11/10/17 at 04:00; Status DC Rifaximin (Xifaxan) 550 mg BID PO Last administered on 11/09/17at 20:47; Start 11/06/17 at 21:00 Sodium Chloride (NS Flush) UNSCH PRN IV FLUSH SEE PROTOCOL; Start 11/08/17 at 12:00 Sodium Phosphate 30 mmol/Sodium Chloride 250 ml @ 42 mls/hr UNSCH PRN IV For Phosphorus < 2.5 mg/dL; Start 11/06/17 at 17:45; Stop 11/07/17 at 13:00; Status DC Thiamine HCl (Vitamin B1) 100 mg DAILY PO Last administered on 11/09/17at 09:45 ; Start 11/07/17 at 09:00 Thiamine HCl 100 mg/Sodium Chloride 101 ml @ 101 mls/hr ONCE ONCE IV Last administered on 11/07/17at 01:13; Start 11/07/17 at 00:45; Stop 11/07/17 at 01:44; Status DC A/P Problem List: (1) Acute liver failure ICD Code: K72.00 - Acute and subacute hepatic failure without coma Status: Acute (2) Hyponatremia ICD Code: E87.1 - Hypo-osmolality and hyponatremia Status: Acute (3) Hypokalemia ICD Code: E87.6 - Hypokalemia Status: Acute (4) Chronic pancreatitis ICD Code: K86.1 - Other chronic pancreatitis Status: Acute (5) Alcohol abuse ICD Code: F10.10 - Alcohol abuse Status: Chronic (6) Hypomagnesemia ICD Code: E83.42 - Hypomagnesemia Status: Acute (7) Diabetes ICD Code: E11.9 - Type 2 diabetes mellitus without complications (8) Elevated LFTs ICD Code: R79.89 - Other specified abnormal findings of blood chemistry (9) Hyperammonemia ICD Code: E72.20 - Disorder of urea cycle metabolism, unspecified Assessment and Plan A/P (1) Acute liver failure related to the patient's continuing use of alcohol. Patient has been counseled extensively. State he has quit before but currently does not appear to have a plan. Will avoid hepatotoxic agents. GI consult appreciated; started on Lactulose and Rifaximin. will continue to monitor the liver function. (2) Hyponatremia- improving. Likely combination of hypovolemic hyponatremia and chronic alcohol use. Hydrate with normal saline. sodium level has improved- continue to monitor. (3)persistent Hypokalemia/ hypomagnesemia and hypophosphatemia- likely alcohol - related. replace aggressively- will monitor the potassium level closely. will consult Nephrology. (4) Chronic pancreatitis continue with Creon. (5) Alcohol abuse Patient was extensively counseled about the detrimental effects of alcohol on his health. CIWA per protocol. At risk for DTs. (6) Diabetes - Type 2 diabetes mellitus without complications Noncompliant with insulin therapy. Levemir 10 units nightly and sliding scale insulin with Accu-Cheks. (7) coagulopathy- improving. continue with vitamin K- monitor for bleeding. transfer to telemetry tomorrow if electrolyte abnormalities improve and remain stable. Discharge Planning will continue to monitor the liver function and aggressively replace the electrolytes. not ready for discharge. Problem Qualifiers (1) Acute liver failure: Qualified Codes: K72.00 - Acute and subacute hepatic failure without coma (2) Chronic pancreatitis: Qualified Codes: K86.0 - Alcohol-induced chronic pancreatitis Amparo Castro MD November 10, 2017 08:15
[2017-11-10] MEDS: SODIUM CHLORIDE 0.9% FLUSH 10 ML FLUSH IV FLUSH SCH ×3 (09:00→21:20)
[2017-11-10 09:19] LABS: MAGNESIUM 1.5 MG/DL (1.5-2.5)
[2017-11-10 09:33] LABS: PHOSPHORUS 1.8 MG/DL (2.5-4.9)
[2017-11-10] MEDS: FOLIC ACID 1 MG TAB PO SCH (09:33)
[2017-11-10] MEDS: METOPROLOL SUCCINATE 25 MG EXTENDED RELEASE TAB PO SCH (09:33)
[2017-11-10] MEDS: PANTOPRAZOLE SOD 40 MG DELAYED RELEASE TAB PO SCH (09:33)
[2017-11-10] MEDS: LACTULOSE SYRUP 20 GM/30 ML CUP PO SCH (09:33)
[2017-11-10] MEDS: RIFAXIMIN 550 MG TAB PO SCH ×2 (09:33→21:19)
[2017-11-10] MEDS: MULTIVITAMINS/MINERALS THERAPEUTIC TAB PO SCH (09:33)
[2017-11-10] MEDS: THIAMINE HCL 100 MG TAB PO SCH (09:33)
[2017-11-10] MEDS: LIPASE/PROTEASE/AMYLASE (12,000/38,000/60,000) CAP PO SCH ×3 (09:33→18:23)
[2017-11-10] MEDS: POTASSIUM CHLOR 20 MEQ PREMIX 100 ML IV SCH ×2 (09:33→11:50)
[2017-11-10] MEDS: PARoxetine HCL 20 MG TAB PO SCH (09:37)
[2017-11-10] MEDS ORDERED: SODIUM PHOSPHATE INJ 15 MMOL in SODIUM CHLORIDE 0.9% INJ 150 ML IV ONE (10:45)
--- NOTE | 2017-11-10 12:50 | MB ---
cc: Herb Vieira MD DATE: 11/10/2017 REASON FOR CONSULTATION: Severe hypokalemia and electrolyte disorder. HISTORY OF PRESENT ILLNESS: This is a 42-year-old male with a past medical history of chronic alcoholism and chronic liver disease, history of pancreatitis, diabetes mellitus, depression, who was admitted with nausea, vomiting and epigastric pain. I was called to see the patient because of low potassium and electrolyte disorder. The patient has history of hypokalemia in the past and his potassium has been low in the past. The patient denies any headache or dizziness. He has mild shortness of breath and has epigastric pain and still has nausea and vomiting off and on and has loose bowel motion. The patient was found to have abnormal liver enzymes and has ammonia level increased with some encephalopathy and he is still not fully oriented and some history was taken from the patient and some from the patient's chart. According to patient, the patient has been still drinking alcohol heavily and he has been drinking at least 3 big glasses of vodka every day. Patient has been getting a lot of replacement for electrolytes. PAST MEDICAL HISTORY: History of alcoholism, chronic liver disease, chronic pancreatitis, diabetes mellitus, depression. PAST SURGICAL HISTORY: Tonsillectomy. REVIEW OF SYSTEMS: Denies any headache or dizziness. He has mild shortness of breath. There is no chest pain. Has occasional dry cough. Has nausea and vomiting off and on and also loose bowel motion and has pain in the upper abdomen. There is no dysuria or hematuria. SOCIAL HISTORY: The patient drinks at least 3 big glasses of vodka. He also has history of smoking about 1/2 pack per day. FAMILY HISTORY: Noncontributory. ALLERGIES: HE HAS NO KNOWN DRUG ALLERGIES. MEDICATIONS: Currently, he is on following medications: 1. IV fluids, getting the potassium chloride at 100 an hour. 2. Rifaximin 550 mg b.i.d. 3. Folic acid 1 mg daily. 4. Theragran 1 tablet daily. 5. Protonix 40 mg once a day. 6. Metoprolol 25 mg daily. 7. Paxil 40 mg once a day. 8. Lactulose 30 mg daily. 9. Vitamin B1 100 mg daily. 10. Levemir 10 units at bedtime. 11. Potassium chloride 1 dose was given today 40 mEq. 12. Sodium phosphate 1 dose was given today. 13. Magnesium was also given. 14. Potassium is also written for 2 more doses. 15. Insulin as per sliding scale. 16. Creon 1 capsule t.i.d. 17. Zofran as needed. 18. Flumazenil 0.2 mg p.r.n. 19. Ativan p.r.n. PHYSICAL EXAMINATION: GENERAL: Awake. He is not fully oriented and not in acute distress. VITAL SIGNS: Blood pressure is 83/55, temperature is 98.4, oxygen saturation on room air is 95-98%. HEENT: Pallor. Icteric. Conjunctivae pale. NECK: Supple. JVD is not elevated. LUNGS: The patient has bilateral decreased air entry with occasional wheezing. HEART: S1, S2. Regular rhythm. ABDOMEN: Soft, lax, distended. There is no stomach epigastric tenderness. There is no rebound, rigidity. Bowel sounds positive. EXTREMITIES: He has no leg edema. INVESTIGATIONS: WBC count is 11.1, hemoglobin 10.5, platelet count 161, neutrophils 84.1%. Sodium 136, potassium 2.6, chloride 89, bicarbonate 37, BUN 20, creatinine 0.56. Calcium corrected is 7.6 and the albumin is 2.0. Phosphorus 1.8, magnesium 1.5. Total bilirubin is 10.0, direct bilirubin is 8.7, AST is 79, ALT is 37, alkaline phosphatase 227. Urinalysis showing protein of 300. This was done on admission. Beta hydroxybutyrate was 14.0. Acetaminophen was less than 2.0. Benzodiazepine was positive. IMAGING STUDIES: The patient has a CT scan of the abdomen and pelvis done on admission which shows chronic pancreatitis with calcification, diffuse hepatic fatty infiltration, portal hypertension, cholelithiasis. ASSESSMENT AND PLAN: 1. Severe hypokalemia. 2. Acute liver failure. 3. History of alcoholism. 4. Electrolyte disorder with low calcium and low phosphorus, along with low magnesium. 5. Alcohol abuse. 6. Diabetes mellitus. 7. Hypotension. The patient has severe hypokalemia which is chronic and could be related to some extent with decreased oral intake of potassium, but also has some GI losses with vomiting and diarrhea. I will check the urine potassium. He also has a low phosphorus, so he may have some renal tubular damage, which is causing loss of phosphorus and potassium. I will also check vitamin D since his calcium level is low. Thank you for the consultation. I will follow the patient while he is in the hospital. MD COREY Urban/KD , 11:34 AM , 12:50 PM
[2017-11-10] MEDS: LORazepam 1 MG TAB PO PRN (15:53)
[2017-11-10 17:31] LABS: OSMOLALITY,URINE 469 MOSM/KG (300-1300)
[2017-11-10] MEDS: INSULIN DETEMIR 100 UNITS/ML VIAL SQ SCH (21:00)
[2017-11-11] VITALS (13 sets, daily range): BP systolic 76–96; BP diastolic 51–66; PULSE 80–91; RESP 15–28; TEMP 97.2–98.8; O2SAT 96–100
[2017-11-11] MEDS: LORazepam 1 MG TAB PO PRN ×2 (03:06→15:54)
[2017-11-11 06:58] LABS: ALBUMIN 2.1 GM/DL (3.4-5.0); BICARBONATE 26.7 MEQ/L (21.0-32.0); CALCIUM 7.1 MG/DL (8.5-10.1); CREATININE 0.48 MG/DL (0.60-1.30); MAGNESIUM 1.1 MG/DL (1.5-2.5); PHOSPHORUS 2.1 MG/DL (2.5-4.9); TOTAL BILIRUBIN ADULT 10.4 MG/DL (0.2-1.0); TOTAL PROTEIN 5.4 GM/DL (6.4-8.2)
--- NOTE | 2017-11-11 07:04 | HHI.PR ---
Subjective Remarks in no acute distress. has some on and off nausea and diarrhea. denies pain. Objective Vitals Vital Signs Date Time Temp Pulse Resp B/P (MAP) Pulse Ox O2 Delivery O2 Flow Rate FiO2 11/11/17 06:00 87 11/11/17 04:00 85 11/11/17 04:00 97.2 85 23 76/52 (60) 99 11/11/17 02:00 83 11/11/17 00:00 98.0 82 15 90/56 (67) 97 11/11/17 00:00 82 11/10/17 22:00 87 11/10/17 20:00 98.5 86 15 80/60 (67) 98 11/10/17 20:00 88 11/10/17 20:00 Room Air 11/10/17 18:00 92 11/10/17 16:00 98.3 86 17 96/61 (73) 98 11/10/17 16:00 86 11/10/17 14:00 84 11/10/17 12:00 98.2 85 21 85/61 (69) 95 11/10/17 12:00 85 11/10/17 11:31 15 11/10/17 10:00 101 11/10/17 08:00 98.4 85 16 83/55 (64) 99 11/10/17 08:00 85 11/10/17 07:48 95 I/O 11/10/17 11/10/17 11/10/17 11/11/17 11/11/17 11/11/17 07:00 15:00 23:00 07:00 15:00 23:00 Intake Total 1117 ml 1300 ml 915 ml 480 ml Output Total 1550 ml 1600 ml 2200 ml Balance -433 ml 1300 ml -685 ml -1720 ml Intake Oral 240 ml 760 ml 480 ml IV Total 877 ml 1300 ml 155 ml Output Urine Total 1550 ml 1600 ml 2200 ml # Bowel Movements 1 4 0 Result Diagram: 11/07/17 0358 11/10/17 1930 Imaging Last Impressions Central Venous Line 11/08/17 0000 Signed Impressions: Service Date/Time: October 11:47 - CONCLUSION: Uncomplicated line placement as above. Merlin Monteiro MD Abdomen/Pelvis CT 11/06/17 1137 Signed Impressions: Service Date/Time: Monday, November 06, 2017 14:50 - CONCLUSION: 1. Findings of chronic pancreatitis with calcifications in the head and uncinate process, dilation of the pancreatic duct and marked atrophy of the mid body and tail. 2. Diffuse hepatic fatty infiltration. No focal mass lesions. 3. Findings of portal hypertension with a portosystemic shunt emanating from the origin of the portal vein and draining into the left renal vein. 4. Cholelithiasis Merlin Monteiro MD Objective Remarks GENERAL: This is a well-nourished, well-developed patient, in no apparent distress. CARDIOVASCULAR: Regular rate and regular rhythm without murmurs, gallops, or rubs. RESPIRATORY: Clear to auscultation. Breath sounds equal bilaterally. No wheezes , rales, or rhonchi. GASTROINTESTINAL: Abdomen soft, mild generalized tenderness, nondistended. Normal, active bowel sounds MUSCULOSKELETAL: Extremities without clubbing, cyanosis, or edema. NEURO: Alert & Oriented x4 to person, place, time, situation. Moves all ext x4 Procedures central line placement. Medications and IVs Inpatient Medications Amylase/Lipase/ Protease (Creon 12-38-60) 1 cap TID PO Last administered on 06/18at 18:23; Start 11/06/17 at 18:00 Calcium Gluconate 1 gm/Dextrose 110 ml @ 110 mls/hr ONCE ONCE IV Last administered on 11/09/17at 01:08; Start 11/09/17 at 00:15; Stop 11/09/17 at 01:14 ; Status DC Dextrose (D50w (Vial) Inj) 50 ml UNSCH PRN IV PUSH HYPOGLYCEMIA-SEE COMMENTS; Start 11/06/17 at 16:15 Flumazenil (Romazicon Inj) 0.2 mg Q1M PRN IV PUSH SEE LABEL COMMENTS; Start 11/06/17 at 16:15 Folic Acid (Folate) 1 mg DAILY PO Last administered on 11/10/17at 09:33; Start 11/07/17 at 09:00; Stop 11/12/17 at 08:59 Glucagon (Glucagon Inj) 1 mg UNSCH PRN OTHER HYPOGLYCEMIA-SEE COMMENTS; Start 11/06/17 at 16:15 Insulin Aspart (NovoLOG SUPPLEMENTAL SCALE) 1 ACHS SLIDING SCALE SQ Last administered on 11/10/17at 21:00; Start 11/06/17 at 17:00 Insulin Detemir (Levemir Inj) 10 units HS SQ Last administered on 11/09/17at 20: 49; Start 11/06/17 at 21:00 Lactulose (Lactulose Liq) 30 ml DAILY PO Last administered on 11/10/17at 09:33; Start 11/07/17 at 09:00 Lorazepam (Ativan Inj) 2 mg Q15M PRN IV PUSH CIWA > 20; Start 11/06/17 at 16:15 Lorazepam (Ativan) 2 mg Q2H PRN PO CIWA 11-14; Start 11/06/17 at 16:15 Magnesium Oxide (Mag-Ox) 800 mg UNSCH PRN PO For Magnesium 1.2 - 1.6 mg/dL; Start 11/06/17 at 17:45; Stop 11/07/17 at 13:00; Status DC Magnesium Sulfate 2 gm/Sodium Chloride 100 ml @ 50 mls/hr UNSCH PRN IV For Magnesium 1.2 - 1.6 mg/dL; Start 11/06/17 at 17:45; Stop 11/07/17 at 13:00; Status DC Magnesium Sulfate 4 gm/Dextrose 100 ml @ 25 mls/hr ONCE IV Last administered on 11/06/17at 18:52; Start 11/06/17 at 17:00; Stop 11/06/17 at 20:59; Status DC Magnesium Sulfate 4 gm/Sodium Chloride 100 ml @ 50 mls/hr UNSCH PRN IV For Magnesium 0.9 - 1.1 mg/dL; Start 11/06/17 at 17:45; Stop 11/07/17 at 13:00; Status DC Magnesium Sulfate/ Dextrose 100 ml @ 100 mls/hr ONCE ONCE IV Last administered on 11/10/17at 12:00; Start 11/10/17 at 10:45; Stop 11/10/17 at 11:44 ; Status DC Metoclopramide HCl (Reglan Inj) 10 mg ONCE ONCE IV PUSH Last administered on at 17:24; Start 11/06/17 at 14:45; Stop 11/06/17 at 14:50; Status DC Metoprolol Succinate (Toprol Xl) 25 mg DAILY PO Last administered on 11/10/17at 09:33; Start 11/07/17 at 09:00 Morphine Sulfate (Morphine Inj) 4 mg ONCE ONCE IV PUSH Last administered on 17:25; Start 11/06/17 at 16:15; Stop 11/06/17 at 16:16; Status DC Multivitamins/ Minerals Therapeutic (Theragran M Tab) 1 tab DAILY PO Last administered on 11/10/17 09:33; Start 11/07/17 at 09:00; Stop 11/12/17 at 08:59 Ondansetron HCl (Zofran Inj) 4 mg Q6H PRN IV PUSH NAUSEA OR VOMITING Last administered on 11/07/17at 07:53; Start 11/06/17 at 16:15 Oxycodone HCl (Roxicodone) 5 mg Q6H PRN PO PAIN SCALE 4 TO 10 Last administered on 11/11/17at 06:02; Start 11/07/17 at 17:00 Pantoprazole Sodium (Protonix) 40 mg DAILY PO Last administered on 11/10/17 09 :33; Start 11/07/17 at 09:00 Paroxetine HCl (Paxil) 40 mg DAILY PO Last administered on 11/10/17 09:37; Start 11/07/17 at 09:00 Phytonadione (Mephyton Liq) 5 mg DAILY PO Last administered on 11/08/17 09:00 ; Start 11/06/17 at 20:30; Stop 11/08/17 at 20:29; Status DC Potassium Chloride 30 meq/ Sodium Chloride 1,015 ml @ 100 mls/hr Q10H9M IV Last administered on 11/06/17at 19:37; Start 11/06/17 at 17:00; Stop 11/07/17 at 00: 28; Status DC Potassium Chloride/Sodium Chloride 1,000 ml @ 100 mls/hr Q10H IV Last administered on 11/10/17at 22:45; Start 11/09/17 at 16:45 Potassium Phosphate (K-Phos) 2,000 mg UNSCH PRN PO/TUBE SEE LABEL COMMENTS; Start 11/06/17 at 17:45; Stop 11/07/17 at 13:00; Status DC Potassium Phosphate 30 mmol/ Sodium Chloride 260 ml @ 43.333 mls/ hr ONCE ONCE IV Last administered on 11/09/17at 19:13; Start 11/09/17 at 18:00; Stop 05/19 at 23:59; Status DC Potassium Bicarb/ Potassium Chloride (K-Lyte Cl Eff) 25 meq ONCE ONCE PO Last administered on 11/07/17at 22:26; Start 11/07/17 at 23:00; Stop 11/07/17 at 23: 01; Status DC Potassium Chloride (KCl) 60 meq ONCE ONCE PO Last administered on 11/10/17at 21 :20; Start 11/10/17 at 20:30; Stop 11/10/17 at 20:31; Status DC Rifaximin (Xifaxan) 550 mg BID PO Last administered on 11/10/17at 21:19; Start 11/06/17 at 21:00 Sodium Chloride (NS Flush) UNSCH PRN IV FLUSH SEE PROTOCOL; Start 11/08/17 at 12:00 Sodium Phosphate 15 mmol/Sodium Chloride 155 ml @ 38.75 mls/ hr ONCE ONCE IV Last administered on 11/10/17at 12:00; Start 11/10/17 at 10:45; Stop 11/10/17 at 14:44; Status DC Sodium Phosphate 30 mmol/Sodium Chloride 250 ml @ 42 mls/hr UNSCH PRN IV For Phosphorus < 2.5 mg/dL; Start 11/06/17 at 17:45; Stop 11/07/17 at 13:00; Status DC Thiamine HCl (Vitamin B1) 100 mg DAILY PO Last administered on 11/10/17at 09:33 ; Start 11/07/17 at 09:00 Thiamine HCl 100 mg/Sodium Chloride 101 ml @ 101 mls/hr ONCE ONCE IV Last administered on 11/07/17at 01:13; Start 11/07/17 at 00:45; Stop 11/07/17 at 01:44; Status DC A/P Problem List: (1) Acute liver failure ICD Code: K72.00 - Acute and subacute hepatic failure without coma Status: Acute (2) Hyponatremia ICD Code: E87.1 - Hypo-osmolality and hyponatremia Status: Acute (3) Hypokalemia ICD Code: E87.6 - Hypokalemia Status: Acute (4) Chronic pancreatitis ICD Code: K86.1 - Other chronic pancreatitis Status: Acute (5) Alcohol abuse ICD Code: F10.10 - Alcohol abuse Status: Chronic (6) Hypomagnesemia ICD Code: E83.42 - Hypomagnesemia Status: Acute (7) Diabetes ICD Code: E11.9 - Type 2 diabetes mellitus without complications (8) Elevated LFTs ICD Code: R79.89 - Other specified abnormal findings of blood chemistry (9) Hyperammonemia ICD Code: E72.20 - Disorder of urea cycle metabolism, unspecified Assessment and Plan A/P (1) Acute liver failure related to the patient's continuing use of alcohol. Patient has been counseled extensively. State he has quit before but currently does not appear to have a plan. Will avoid hepatotoxic agents. GI following; started on Lactulose and Rifaximin. will continue to monitor the liver function. (2) Hyponatremia- improving. Likely combination of hypovolemic hyponatremia and chronic alcohol use. Hydrate with normal saline. sodium level has improved- continue to monitor. (3)persistent Hypokalemia/ hypomagnesemia and hypophosphatemia- replace aggressively- the levels today pending. nephrology consult appreciated. (4) Chronic pancreatitis continue with Creon. (5) Alcohol abuse Patient was extensively counseled about the detrimental effects of alcohol on his health. CIWA per protocol. (6) Diabetes - Type 2 diabetes mellitus without complications Noncompliant with insulin therapy. Levemir 10 units nightly and sliding scale insulin with Accu-Cheks. (7) coagulopathy- improving. continue with vitamin K- monitor for bleeding. transfer to telemetry within the next 24 hrs if electrolyte abnormalities improve and remain stable. Discharge Planning will continue to monitor the liver function and aggressively replace the electrolytes. not ready for discharge. Problem Qualifiers (1) Acute liver failure: Qualified Codes: K72.00 - Acute and subacute hepatic failure without coma (2) Chronic pancreatitis: Qualified Codes: K86.0 - Alcohol-induced chronic pancreatitis Amparo Castro MD November 11, 2017 07:04
[2017-11-11] MEDS: INSULIN ASPART SUPPLEMENTAL SCALE SQ SCH ×4 (08:00→21:00)
[2017-11-11] MEDS: PARoxetine HCL 20 MG TAB PO SCH (08:53)
[2017-11-11] MEDS: FOLIC ACID 1 MG TAB PO SCH (08:54)
[2017-11-11] MEDS: PANTOPRAZOLE SOD 40 MG DELAYED RELEASE TAB PO SCH (08:54)
[2017-11-11] MEDS: THIAMINE HCL 100 MG TAB PO SCH (08:54)
[2017-11-11] MEDS: METOPROLOL SUCCINATE 25 MG EXTENDED RELEASE TAB PO SCH (08:54)
[2017-11-11] MEDS: RIFAXIMIN 550 MG TAB PO SCH ×2 (08:54→21:00)
[2017-11-11] MEDS: LIPASE/PROTEASE/AMYLASE (12,000/38,000/60,000) CAP PO SCH ×3 (08:54→16:55)
[2017-11-11] MEDS: NS + KCL 40 MEQ INJ 1,000 ML IV SCH ×2 (08:56→18:45)
[2017-11-11] MEDS: POTASSIUM CHLOR 20 MEQ PREMIX 100 ML IV SCH ×2 (08:56→11:10)
[2017-11-11] MEDS: SODIUM CHLORIDE 0.9% FLUSH 10 ML FLUSH IV FLUSH SCH ×3 (08:57→21:00)
[2017-11-11] MEDS: MULTIVITAMINS/MINERALS THERAPEUTIC TAB PO SCH (08:58)
[2017-11-11] MEDS: LACTULOSE SYRUP 20 GM/30 ML CUP PO SCH (08:58)
[2017-11-11] MEDS ORDERED: POTASSIUM CHLORIDE 10 MEQ CONTROLLED RELEASE TAB PO ONE ×4 (09:00→20:00)
[2017-11-11] MEDS ORDERED: MAGNESIUM SULFATE 1 GM PREMIX 100 ML IV ONE (09:00)
[2017-11-11] MEDS: POTASSIUM PHOSPHATE/SODIUM PHOSPHATE 250 MG TAB PO SCH ×3 (09:18→21:00)
--- NOTE | 2017-11-11 11:08 | HHI.NPPN ---
Subjective History of Present Illness 42-year-old male with a past medical history of chronic alcoholism and chronic liver disease, history of pancreatitis, diabetes mellitus, depression, who was admitted with nausea, vomiting and epigastric pain. I was called to see the patient because of low potassium and electrolyte disorder. The patient has history of hypokalemia in the past and his potassium has been low in the past. Additional Remarks Patient is alert, no dizziness, no SOB, not in distress. Review of Systems General Constitutional: Fatigue Cardiovascular Cardiac: JAIMES Objective Data Data 11/11/17 11/12/17 19:00 07:00 Intake Total 1089 ml Balance 1089 ml IV Total 1089 ml Vital Signs Date Time Temp Pulse Resp B/P (MAP) Pulse Ox O2 Delivery O2 Flow Rate FiO2 11/11/17 09:19 96 11/11/17 08:00 82 11/11/17 08:00 98.7 82 22 91/58 (69) 97 11/11/17 07:02 12 11/11/17 07:00 100 Room Air 11/11/17 06:00 87 11/11/17 04:00 85 11/11/17 04:00 97.2 85 23 76/52 (60) 99 11/11/17 02:00 83 11/11/17 00:00 98.0 82 15 90/56 (67) 97 11/11/17 00:00 82 11/10/17 22:00 87 11/10/17 20:00 98.5 86 15 80/60 (67) 98 11/10/17 20:00 88 11/10/17 20:00 Room Air 11/10/17 18:00 92 11/10/17 16:00 98.3 86 17 96/61 (73) 98 11/10/17 16:00 86 11/10/17 14:00 84 11/10/17 12:00 98.2 85 21 85/61 (69) 95 11/10/17 12:00 85 -: 11/07/17 0358 11/11/17 0600 Physical Exam General Appearance: No Acute Distress, Comfortable Eyes Eye Exam: Pupils Equal Throat Throat Exam: Oral Mucosa [place] & Moist Neck Neck Exam: Neck Supple Pulmonary Resp Exam: Breath Sounds Equal, No Distress, Rhonchi, Decreased Bases Cardiology CV Exam: Regular, Normal Sinus Rhythm Gastrointestinal/Abdomen GI Exam: Soft, Non-Tender, Bowel Sounds Present Extremeties Extremities Exam: Trace Edema Neurologic Neuro Exam: Alert, Awake Psychiatric Psych Exam: Appropriate Responses Assessment/Plan Electrolyte Assessment: Hypokalemia Problem List: (1) Hypertension ICD Codes: I10 - Hypertension Status: Chronic (2) Alcohol intoxication ICD Codes: F10.129 - Alcohol abuse with intoxication, unspecified Status: Acute (3) Chronic pancreatitis ICD Codes: K86.1 - Other chronic pancreatitis Status: Acute (4) Acute liver failure ICD Codes: K72.00 - Acute and subacute hepatic failure without coma Status: Acute (5) Hypokalemia ICD Codes: E87.6 - Hypokalemia Status: Acute (6) Hyponatremia ICD Codes: E87.1 - Hypo-osmolality and hyponatremia Status: Acute (7) Hypomagnesemia ICD Codes: E83.42 - Hypomagnesemia Status: Acute (8) Alcohol withdrawal ICD Codes: F10.239 - Alcohol withdrawal syndrome Status: Acute Plan Patient has history of alcoholism and Acute liver failure. Also has chronic pancreatitis. K is low, along with other electrolyte disorder. Most likely has electrolyte problem due to decrease oral intake, and also due to renal tubular damage. Urine K is high, add Aldactone, also replace Po4, on K replacement. Problem Qualifiers (1) Chronic pancreatitis: Qualified Codes: K86.0 - Alcohol-induced chronic pancreatitis (2) Acute liver failure: Qualified Codes: K72.00 - Acute and subacute hepatic failure without coma (3) Alcohol withdrawal: Qualified Codes: F10.230 - Alcohol dependence with withdrawal, uncomplicated Merlin Vieira MD November 11, 2017 11:08
[2017-11-11] MEDS: MAGNESIUM OXIDE 400 MG TAB PO SCH ×2 (11:11→21:47)
[2017-11-11] MEDS ORDERED: POTASSIUM PHOSPHATE INJ 15 MMOL in SODIUM CHLORIDE 0.9% INJ 150 ML IV ONE (11:15)
--- NOTE | 2017-11-11 12:41 | HHI.GIFU ---
Subjective Remarks aLERT nad FEELING BETTER OVERALL...TOLERATING PO WELL TREMULOUS ON ATIVAN POTASSIUM CONTINUES LOW DESPITE REPLACEMENT BP 100/60 Objective Vitals I&O Vital Signs Date Time Temp Pulse Resp B/P (MAP) Pulse Ox O2 Delivery O2 Flow Rate FiO2 11/11/17 10:00 80 11/11/17 09:19 96 11/11/17 08:00 82 11/11/17 08:00 98.7 82 22 91/58 (69) 97 11/11/17 07:02 12 11/11/17 07:00 100 Room Air 11/11/17 06:00 87 11/11/17 04:00 85 11/11/17 04:00 97.2 85 23 76/52 (60) 99 11/11/17 02:00 83 11/11/17 00:00 98.0 82 15 90/56 (67) 97 11/11/17 00:00 82 11/10/17 22:00 87 11/10/17 20:00 98.5 86 15 80/60 (67) 98 11/10/17 20:00 88 11/10/17 20:00 Room Air 11/10/17 18:00 92 11/10/17 16:00 98.3 86 17 96/61 (73) 98 11/10/17 16:00 86 11/10/17 14:00 84 I/O 11/10/17 11/10/17 11/10/17 11/11/17 11/11/17 11/11/17 07:00 15:00 23:00 07:00 15:00 23:00 Intake Total 1117 ml 1300 ml 915 ml 480 ml 1089 ml Output Total 1550 ml 1600 ml 2200 ml Balance -433 ml 1300 ml -685 ml -1720 ml 1089 ml Intake Oral 240 ml 760 ml 480 ml IV Total 877 ml 1300 ml 155 ml 1089 ml Output Urine Total 1550 ml 1600 ml 2200 ml # Bowel Movements 1 4 0 Laboratory Laboratory Tests Test 11/10/17 13:46 11/10/17 16:20 11/10/17 19:30 11/11/17 06:00 Potassium Level 3.2 2.9 2.8 Urine Osmolality 469 Urine Random Potassium 53 Blood Urea Nitrogen 2 Creatinine 0.48 Random Glucose 150 Total Protein 5.4 Albumin 2.1 Calcium Level 7.1 Phosphorus Level 2.1 Magnesium Level 1.1 Alkaline Phosphatase 230 Aspartate Amino Transf (AST/SGOT) 53 Alanine Aminotransferase (ALT/SGPT) 31 Total Bilirubin 10.4 Sodium Level 136 Chloride Level 97 Carbon Dioxide Level 26.7 Anion Gap 12 Estimat Glomerular Filtration Rate 190 Protein Corrected Calcium 8.0 Imaging Last Impressions Central Venous Line 11/08/17 0000 Signed Impressions: Service Date/Time: October 11:47 - CONCLUSION: Uncomplicated line placement as above. Merlin Monteiro MD Abdomen/Pelvis CT 11/06/17 1137 Signed Impressions: Service Date/Time: Monday, November 06, 2017 14:50 - CONCLUSION: 1. Findings of chronic pancreatitis with calcifications in the head and uncinate process, dilation of the pancreatic duct and marked atrophy of the mid body and tail. 2. Diffuse hepatic fatty infiltration. No focal mass lesions. 3. Findings of portal hypertension with a portosystemic shunt emanating from the origin of the portal vein and draining into the left renal vein. 4. Cholelithiasis Merlin Monteiro MD Physical Exam Last 48 hours Impressions Central Venous Line 11/08/17 0000 Signed Impressions: Service Date/Time: October 11:47 - CONCLUSION: Uncomplicated line placement as above. Merlin Monteiro MD Laboratory Tests Test 11/06/17 00:00 11/06/17 12:04 11/06/17 12:10 11/06/17 12:36 Salicylates Level LESS THAN 1.7 MG/DL Activated Partial Thromboplast Time 34.8 SEC Total Creatine Kinase 36 U/L Troponin I LESS THAN 0.02 NG/ML Lipase 161 U/L Ethyl Alcohol Level LESS THAN 3 MG/DL Ammonia 69 MCMOL/L Urine Color DARK-YELLOW Urine Turbidity HAZY Urine pH 6.5 Urine Specific [place] 1.021 Urine Protein 300 mg/dL Urine Glucose (UA) 70 mg/dL Urine Ketones 150 mg/dL Urine Occult Blood SMALL Urine Nitrite NEG Urine Bilirubin LARGE Urine Urobilinogen 8.0 MG/DL Urine Leukocyte Esterase NEG Urine RBC 2 /hpf Urine WBC 5 /hpf Urine Squamous Epithelial Cells <1 /hpf Urine Hyaline Casts 157 /lpf Urine Granular Casts 5 /lpf Urine Mucus FEW /lpf Microscopic Urinalysis Comment CULT NOT INDICATED Urine Opiates Screen NEG Urine Barbiturates Screen NEG Urine Amphetamines Screen NEG Urine Benzodiazepines Screen POS Urine Cocaine Screen NEG Urine Cannabinoids Screen NEG Test 11/06/17 22:25 11/07/17 01:49 11/07/17 02:00 11/07/17 03:58 Acetaminophen Level LESS THAN 2.0 MCG/ML B-Hydroxybutyrate 14.09 MMOL/L Blood Gas Puncture Site RT RADIAL Blood Gas Patient Temperature 98.6 Blood Gas HCO3 17 mmol/L Blood Gas Base Excess -6.6 mmol/L Blood Gas Oxygen Saturation 94 % Arterial Blood pH 7.43 Arterial Blood Partial Pressure CO2 26 mmHg Arterial Blood Partial Pressure O2 86 mmHG Arterial Blood Oxygen Content 12.5 Vol % Arterial Blood Carboxyhemoglobin 2.4 % Arterial Blood Methemoglobin 0.7 % Blood Gas Hemoglobin 9.4 G/DL Oxygen Delivery Device ROOM AIR Blood Gas Inspired Oxygen 21 % Lactic Acid Level 0.8 mmol/L White Blood Count 11.1 TH/MM3 Red Blood Count 3.14 MIL/MM3 Hemoglobin 10.5 GM/DL Hematocrit 30.0 % Mean Corpuscular Volume 95.6 FL Mean Corpuscular Hemoglobin 33.6 PG Mean Corpuscular Hemoglobin Concent 35.1 % Red Cell Distribution Width 12.7 % Platelet Count 161 TH/MM3 Mean Platelet Volume 8.3 FL Neutrophils (%) (Auto) 84.1 % Lymphocytes (%) (Auto) 4.7 % Monocytes (%) (Auto) 10.5 % Eosinophils (%) (Auto) 0.4 % Basophils (%) (Auto) 0.3 % Neutrophils # (Auto) 9.3 TH/MM3 Lymphocytes # (Auto) 0.5 TH/MM3 Monocytes # (Auto) 1.2 TH/MM3 Eosinophils # (Auto) 0.0 TH/MM3 Basophils # (Auto) 0.0 TH/MM3 CBC Comment DIFF FINAL Differential Comment Test 11/07/17 04:36 11/07/17 13:00 11/08/17 03:32 11/08/17 08:07 Serum Osmolality 296 MOSM/KG Nasal Screen MRSA (PCR) MRSA NOT DETECTED Prothrombin Time 12.8 SEC Prothromb Time International Ratio 1.3 RATIO Random Cortisol 28.3 MCG/DL Test 11/08/17 14:01 11/09/17 13:50 Blood Urea Nitrogen 2 MG/DL LESS THAN 1 MG/DL Creatinine 0.81 MG/DL 0.49 MG/DL Random Glucose 114 MG/DL 111 MG/DL Total Protein 5.9 GM/DL 5.6 GM/DL Albumin 2.3 GM/DL Calcium Level 7.0 MG/DL 7.0 MG/DL Phosphorus Level 0.8 MG/DL 0.4 MG/DL Magnesium Level 1.3 MG/DL 1.3 MG/DL Alkaline Phosphatase 229 U/L Aspartate Amino Transf (AST/SGOT) 104 U/L Alanine Aminotransferase (ALT/SGPT) 42 U/L Total Bilirubin 10.2 MG/DL Direct Bilirubin 8.7 MG/DL Sodium Level 130 MEQ/L 134 MEQ/L Potassium Level 2.2 MEQ/L 1.8 MEQ/L Chloride Level 82 MEQ/L 83 MEQ/L Carbon Dioxide Level 35.8 MEQ/L 41.7 MEQ/L Indirect Bilirubin 1.5 MG/DL Anion Gap 9 MEQ/L Estimat Glomerular Filtration Rate 186 ML/MIN Protein Corrected Calcium 7.8 MG/DL Jaundiced/ icteric sclera NECK: Neck is supple, no JVD, no lymphadenopathy. CHEST: Chest is clear to auscultation and percussion. CARDIAC: Regular rate and rhythm with no murmur gallop or rubs. ABDOMEN: Liver 4 FB below RCM, tender in epigastric region bs pos EXTREMITIES: No clubbing, cyanosis, or edema. SKIN: Normal; no rash; no jaundice. Assessment and Plan Assessment: (1) Chronic pancreatitis ICD Codes: K86.1 - Other chronic pancreatitis Status: Acute (2) Hypokalemia ICD Codes: E87.6 - Hypokalemia Status: Acute (3) Alcohol withdrawal ICD Codes: F10.239 - Alcohol withdrawal syndrome Status: Acute (4) Hyperammonemia ICD Codes: E72.20 - Disorder of urea cycle metabolism, unspecified (5) Elevated LFTs ICD Codes: R79.89 - Other specified abnormal findings of blood chemistry (6) Alcohol abuse ICD Codes: F10.10 - Alcohol abuse Status: Chronic (7) Abdominal pain ICD Codes: R10.9 - Unspecified abdominal pain Status: Acute (8) Acute liver failure ICD Codes: K72.00 - Acute and subacute hepatic failure without coma Status: Acute (9) Noncompliance ICD Codes: Z91.19 - Patient's noncompliance with other medical treatment and regimen Status: Acute Plan APPEARS STABLE CONT CURRENT THERAPY OBSERVE FOR DT'S.....CONT W CREON THERAPY STABLE OTHERWISE FOR NOW Problem Qualifiers (1) Chronic pancreatitis: Qualified Codes: K86.0 - Alcohol-induced chronic pancreatitis (2) Alcohol withdrawal: Qualified Codes: F10.230 - Alcohol dependence with withdrawal, uncomplicated (3) Abdominal pain: Qualified Codes: R10.9 - Unspecified abdominal pain (4) Acute liver failure: Qualified Codes: K72.00 - Acute and subacute hepatic failure without coma Molina Velasquez MD November 11, 2017 12:41
[2017-11-11] MEDS: SPIRONOLACTONE 25 MG TAB PO SCH (16:55)
[2017-11-11] MEDS: INSULIN DETEMIR 100 UNITS/ML VIAL SQ SCH (21:00)
[2017-11-12] VITALS (12 sets, daily range): BP systolic 80–93; BP diastolic 53–59; PULSE 71–87; RESP 10–16; TEMP 97.6–100.2; O2SAT 95–100
[2017-11-12] MEDS: NS + KCL 40 MEQ INJ 1,000 ML IV SCH ×3 (03:46→21:40)
[2017-11-12 05:03] LABS: BICARBONATE 28.4 MEQ/L (21.0-32.0); CALCIUM 6.8 MG/DL (8.5-10.1); CREATININE 0.4 MG/DL (0.60-1.30); PHOSPHORUS 2.3 MG/DL (2.5-4.9)
[2017-11-12 05:20] LABS: CALCIUM-PROTEIN CORRECTED 7.7 MG/DL (8.5-10.1); TOTAL PROTEIN 5.4 GM/DL (6.4-8.2)
[2017-11-12] MEDS: POTASSIUM PHOSPHATE/SODIUM PHOSPHATE 250 MG TAB PO SCH ×3 (05:55→20:20)
[2017-11-12] MEDS: LORazepam 1 MG TAB PO PRN ×3 (06:14→18:00)
[2017-11-12] MEDS ORDERED: SODIUM PHOSPHATE INJ 30 MMOL in SODIUM CHLOR 0.9% 250 ML INJ 250 ML IV ONE (06:45)
[2017-11-12] MEDS: MAGNESIUM SULFATE 1 GM PREMIX 100 ML IV SCH ×2 (06:46→09:23)
--- NOTE | 2017-11-12 07:09 | HHI.PR ---
Subjective Remarks in no acute distress. minimal abdominal pain. had a couple of BM last night. no emesis. Objective Vitals Vital Signs Date Time Temp Pulse Resp B/P (MAP) Pulse Ox O2 Delivery O2 Flow Rate FiO2 11/12/17 06:00 79 11/12/17 04:00 98.4 77 10 84/59 (67) 100 11/12/17 04:00 77 11/12/17 02:00 78 11/12/17 00:00 80 11/12/17 00:00 98.7 81 13 88/56 (67) 95 11/11/17 22:00 88 11/11/17 20:00 84 11/11/17 20:00 98.8 84 24 92/64 (73) 100 11/11/17 19:00 96 Room Air 11/11/17 18:00 91 11/11/17 16:00 84 11/11/17 16:00 98.6 84 28 96/66 (76) 100 11/11/17 14:00 80 11/11/17 13:35 12 11/11/17 12:00 80 11/11/17 12:00 97.6 80 24 80/51 (61) 97 11/11/17 10:00 80 11/11/17 09:19 96 11/11/17 08:00 82 11/11/17 08:00 98.7 82 22 91/58 (69) 97 I/O 11/11/17 11/11/17 11/11/17 11/12/17 11/12/17 11/12/17 07:00 15:00 23:00 07:00 15:00 23:00 Intake Total 480 ml 1189 ml 1935 ml 1480 ml Output Total 2200 ml 2600 ml 1400 ml Balance -1720 ml 1189 ml -665 ml 80 ml Intake Oral 480 ml 780 ml 480 ml IV Total 1189 ml 1155 ml 1000 ml Output Urine Total 2200 ml 2600 ml 1400 ml # Bowel Movements 0 0 2 Result Diagram: 11/12/17 0335 Imaging Last Impressions Central Venous Line 11/08/17 0000 Signed Impressions: Service Date/Time: October 11:47 - CONCLUSION: Uncomplicated line placement as above. Merlin Monteiro MD Abdomen/Pelvis CT 11/06/17 1137 Signed Impressions: Service Date/Time: Monday, November 06, 2017 14:50 - CONCLUSION: 1. Findings of chronic pancreatitis with calcifications in the head and uncinate process, dilation of the pancreatic duct and marked atrophy of the mid body and tail. 2. Diffuse hepatic fatty infiltration. No focal mass lesions. 3. Findings of portal hypertension with a portosystemic shunt emanating from the origin of the portal vein and draining into the left renal vein. 4. Cholelithiasis Merlin Monteiro MD Objective Remarks GENERAL: This is a well-nourished, well-developed patient, in no apparent distress. CARDIOVASCULAR: Regular rate and regular rhythm without murmurs, gallops, or rubs. RESPIRATORY: Clear to auscultation. Breath sounds equal bilaterally. No wheezes , rales, or rhonchi. GASTROINTESTINAL: Abdomen soft, mild generalized tenderness, nondistended. Normal, active bowel sounds MUSCULOSKELETAL: Extremities without clubbing, cyanosis, or edema. NEURO: Alert & Oriented x4 to person, place, time, situation. Moves all ext x4 Procedures central line placement. Medications and IVs Inpatient Medications Amylase/Lipase/ Protease (Creon 12-38-60) 1 cap TID PO Last administered on at 16:55; Start 11/06/17 at 18:00 Calcium Gluconate 1 gm/Dextrose 110 ml @ 110 mls/hr ONCE ONCE IV Last administered on 11/09/17at 01:08; Start 11/09/17 at 00:15; Stop 11/09/17 at 01:14 ; Status DC Dextrose (D50w (Vial) Inj) 50 ml UNSCH PRN IV PUSH HYPOGLYCEMIA-SEE COMMENTS; Start 11/06/17 at 16:15 Flumazenil (Romazicon Inj) 0.2 mg Q1M PRN IV PUSH SEE LABEL COMMENTS; Start 11/06/17 at 16:15 Folic Acid (Folate) 1 mg DAILY PO Last administered on 11/11/17at 08:54; Start 11/07/17 at 09:00; Stop 11/12/17 at 08:59 Glucagon (Glucagon Inj) 1 mg UNSCH PRN OTHER HYPOGLYCEMIA-SEE COMMENTS; Start 11/06/17 at 16:15 Insulin Aspart (NovoLOG SUPPLEMENTAL SCALE) 1 ACHS SLIDING SCALE SQ Last administered on 11/11/17at 21:00; Start 11/06/17 at 17:00 Insulin Detemir (Levemir Inj) 10 units HS SQ Last administered on 11/09/17at 20: 49; Start 11/06/17 at 21:00 Lactulose (Lactulose Liq) 30 ml DAILY PO Last administered on 11/11/17at 08:58; Start 11/07/17 at 09:00 Lorazepam (Ativan Inj) 2 mg Q15M PRN IV PUSH CIWA > 20; Start 11/06/17 at 16:15 Lorazepam (Ativan) 2 mg Q2H PRN PO CIWA 11-14; Start 11/06/17 at 16:15 Magnesium Oxide (Mag-Ox) 400 mg Q12HR@1100,2300 PO Last administered on at 21:47; Start 11/11/17 at 11:00 Magnesium Sulfate 2 gm/Sodium Chloride 100 ml @ 50 mls/hr UNSCH PRN IV For Magnesium 1.2 - 1.6 mg/dL; Start 11/06/17 at 17:45; Stop 11/07/17 at 13:00; Status DC Magnesium Sulfate 4 gm/Dextrose 100 ml @ 25 mls/hr ONCE IV Last administered on 11/06/17at 18:52; Start 11/06/17 at 17:00; Stop 11/06/17 at 20:59; Status DC Magnesium Sulfate 4 gm/Sodium Chloride 100 ml @ 50 mls/hr UNSCH PRN IV For Magnesium 0.9 - 1.1 mg/dL; Start 11/06/17 at 17:45; Stop 11/07/17 at 13:00; Status DC Magnesium Sulfate/ Dextrose 100 ml @ 100 mls/hr Q1H IV Last administered on at 06:46; Start 11/12/17 at 06:45; Stop 11/12/17 at 08:44 Metoclopramide HCl (Reglan Inj) 10 mg ONCE ONCE IV PUSH Last administered on at 17:24; Start 11/06/17 at 14:45; Stop 11/06/17 at 14:50; Status DC Metoprolol Succinate (Toprol Xl) 25 mg DAILY PO Last administered on 11/11/17at 08:54; Start 11/07/17 at 09:00 Morphine Sulfate (Morphine Inj) 4 mg ONCE ONCE IV PUSH Last administered on 17:25; Start 11/06/17 at 16:15; Stop 11/06/17 at 16:16; Status DC Multivitamins/ Minerals Therapeutic (Theragran M Tab) 1 tab DAILY PO Last administered on 11/11/17at 08:58; Start 11/07/17 at 09:00; Stop 11/12/17 at 08:59 Ondansetron HCl (Zofran Inj) 4 mg Q6H PRN IV PUSH NAUSEA OR VOMITING Last administered on 11/07/17at 07:53; Start 11/06/17 at 16:15 Oxycodone HCl (Roxicodone) 5 mg Q6H PRN PO PAIN SCALE 4 TO 10 Last administered on 11/12/17at 02:52; Start 11/07/17 at 17:00 Pantoprazole Sodium (Protonix) 40 mg DAILY PO Last administered on 11/11/17at 08 :54; Start 11/07/17 at 09:00 Paroxetine HCl (Paxil) 40 mg DAILY PO Last administered on 11/11/17at 08:53; Start 11/07/17 at 09:00 Phytonadione (Mephyton Liq) 5 mg DAILY PO Last administered on 11/08/17at 09:00 ; Start 11/06/17 at 20:30; Stop 11/08/17 at 20:29; Status DC Potassium Chloride 30 meq/ Sodium Chloride 1,015 ml @ 100 mls/hr Q10H9M IV Last administered on 11/06/17at 19:37; Start 11/06/17 at 17:00; Stop 11/07/17 at 00: 28; Status DC Potassium Chloride/Sodium Chloride 1,000 ml @ 100 mls/hr Q10H IV Last administered on 11/12/17at 03:46; Start 11/09/17 at 16:45 Potassium Phosphate (K-Phos) 2,000 mg UNSCH PRN PO/TUBE SEE LABEL COMMENTS; Start 11/06/17 at 17:45; Stop 11/07/17 at 13:00; Status DC Potassium Phosphate 15 mmol/ Sodium Chloride 155 ml @ 38.75 mls/ hr ONCE ONCE IV Last administered on 11/11/17at 13:28; Start 11/11/17 at 11:15; Stop at 15:14; Status DC Potassium Phosphate 30 mmol/ Sodium Chloride 260 ml @ 43.333 mls/ hr ONCE ONCE IV Last administered on 11/09/17at 19:13; Start 11/09/17 at 18:00; Stop 05/19 at 23:59; Status DC Potassium Bicarb/ Potassium Chloride (K-Lyte Cl Eff) 25 meq ONCE ONCE PO Last administered on 11/07/17at 22:26; Start 11/07/17 at 23:00; Stop 11/07/17 at 23: 01; Status DC Potassium Chloride (KCl) 40 meq ONCE ONCE PO Last administered on 11/11/17at 21 :00; Start 11/11/17 at 20:00; Stop 11/11/17 at 20:01; Status DC Potassium Phos/ Sodium Phos (K-Phos Neutral) 250 mg Q8HR PO Last administered on 11/12/17at 05:55; Start 11/11/17 at 09:00 Rifaximin (Xifaxan) 550 mg BID PO Last administered on 11/11/17at 21:00; Start 11/06/17 at 21:00 Sodium Chloride (NS Flush) UNSCH PRN IV FLUSH SEE PROTOCOL; Start 11/08/17 at 12:00 Sodium Phosphate 15 mmol/Sodium Chloride 155 ml @ 38.75 mls/ hr ONCE ONCE IV Last administered on 11/10/17at 12:00; Start 11/10/17 at 10:45; Stop 11/10/17 at 14:44; Status DC Sodium Phosphate 30 mmol/Sodium Chloride 260 ml @ 43.333 mls/ hr ONCE ONCE IV ; Start 11/12/17 at 06:45; Stop 11/12/17 at 12:44 Spironolactone (Aldactone) 25 mg BID@09,18 PO Last administered on 11/11/17at 16 :55; Start 11/11/17 at 18:00 Thiamine HCl (Vitamin B1) 100 mg DAILY PO Last administered on 11/11/17at 08:54 ; Start 11/07/17 at 09:00 Thiamine HCl 100 mg/Sodium Chloride 101 ml @ 101 mls/hr ONCE ONCE IV Last administered on 11/07/17at 01:13; Start 11/07/17 at 00:45; Stop 11/07/17 at 01:44; Status DC A/P Problem List: (1) Acute liver failure ICD Code: K72.00 - Acute and subacute hepatic failure without coma Status: Acute (2) Hyponatremia ICD Code: E87.1 - Hypo-osmolality and hyponatremia Status: Acute (3) Hypokalemia ICD Code: E87.6 - Hypokalemia Status: Acute (4) Chronic pancreatitis ICD Code: K86.1 - Other chronic pancreatitis Status: Acute (5) Alcohol abuse ICD Code: F10.10 - Alcohol abuse Status: Chronic (6) Hypomagnesemia ICD Code: E83.42 - Hypomagnesemia Status: Acute (7) Diabetes ICD Code: E11.9 - Type 2 diabetes mellitus without complications (8) Elevated LFTs ICD Code: R79.89 - Other specified abnormal findings of blood chemistry (9) Hyperammonemia ICD Code: E72.20 - Disorder of urea cycle metabolism, unspecified Assessment and Plan A/P (1) Acute liver failure related to the patient's continuing use of alcohol. Patient has been counseled extensively. State he has quit before but currently does not appear to have a plan. Will avoid hepatotoxic agents. GI following; started on Lactulose and Rifaximin. will continue to monitor the liver function. (2) Hyponatremia- improving. Likely combination of hypovolemic hyponatremia and chronic alcohol use. Hydrate with normal saline. sodium level has improved- continue to monitor. (3)persistent Hypokalemia/ hypomagnesemia and hypophosphatemia- improved. continue to replace aggressively- will monitor the levels. started on Aldactone.will monitor the BP- nephrology following. (4) Chronic pancreatitis continue with Creon. (5) Alcohol abuse Patient was extensively counseled about the detrimental effects of alcohol on his health. CIWA per protocol. (6) Diabetes - Type 2 diabetes mellitus without complications Noncompliant with insulin therapy. Levemir 10 units nightly and sliding scale insulin with Accu-Cheks. (7) coagulopathy- improving. continue with vitamin K- monitor for bleeding. transfer to telemetry today. Discharge Planning will continue to monitor the liver function and aggressively replace the electrolytes. not ready for discharge. Problem Qualifiers (1) Acute liver failure: Qualified Codes: K72.00 - Acute and subacute hepatic failure without coma (2) Chronic pancreatitis: Qualified Codes: K86.0 - Alcohol-induced chronic pancreatitis Amparo Castro MD November 12, 2017 07:09
[2017-11-12] MEDS: METOPROLOL SUCCINATE 25 MG EXTENDED RELEASE TAB PO SCH (09:00)
[2017-11-12] MEDS: THIAMINE HCL 100 MG TAB PO SCH (09:23)
[2017-11-12] MEDS: LACTULOSE SYRUP 20 GM/30 ML CUP PO SCH (09:23)
[2017-11-12] MEDS: PARoxetine HCL 20 MG TAB PO SCH (09:23)
[2017-11-12] MEDS: RIFAXIMIN 550 MG TAB PO SCH ×2 (09:23→20:20)
[2017-11-12] MEDS: LIPASE/PROTEASE/AMYLASE (12,000/38,000/60,000) CAP PO SCH ×3 (09:24→16:40)
[2017-11-12] MEDS: PANTOPRAZOLE SOD 40 MG DELAYED RELEASE TAB PO SCH (09:24)
[2017-11-12] MEDS: SPIRONOLACTONE 25 MG TAB PO SCH (09:25)
[2017-11-12] MEDS: SODIUM CHLORIDE 0.9% FLUSH 10 ML FLUSH IV FLUSH SCH ×3 (09:25→20:20)
--- NOTE | 2017-11-12 09:51 | HHI.NPPN ---
Subjective History of Present Illness 42-year-old male with a past medical history of chronic alcoholism and chronic liver disease, history of pancreatitis, diabetes mellitus, depression, who was admitted with nausea, vomiting and epigastric pain. I was called to see the patient because of low potassium and electrolyte disorder. The patient has history of hypokalemia in the past and his potassium has been low in the past. Additional Remarks Patient is alert, no dizziness, no SOB, started eating some. Review of Systems General Constitutional: Fatigue Cardiovascular Cardiac: JAIMES Objective Data Data Vital Signs Date Time Temp Pulse Resp B/P (MAP) Pulse Ox O2 Delivery O2 Flow Rate FiO2 11/12/17 06:00 79 11/12/17 04:00 98.4 77 10 84/59 (67) 100 11/12/17 04:00 77 11/12/17 02:00 78 11/12/17 00:00 80 11/12/17 00:00 98.7 81 13 88/56 (67) 95 11/11/17 22:00 88 11/11/17 20:00 84 11/11/17 20:00 98.8 84 24 92/64 (73) 100 11/11/17 19:00 96 Room Air 11/11/17 18:00 91 11/11/17 16:00 84 11/11/17 16:00 98.6 84 28 96/66 (76) 100 11/11/17 14:00 80 11/11/17 13:35 12 11/11/17 12:00 80 11/11/17 12:00 97.6 80 24 80/51 (61) 97 11/11/17 10:00 80 -: 11/12/17 0335 Physical Exam General Appearance: No Acute Distress, Comfortable Eyes Eye Exam: Pupils Equal Throat Throat Exam: Oral Mucosa Peridot & Moist Neck Neck Exam: Neck Supple Pulmonary Resp Exam: Breath Sounds Equal, No Distress, Rhonchi, Decreased Bases Cardiology CV Exam: Regular, Normal Sinus Rhythm Gastrointestinal/Abdomen GI Exam: Soft, Non-Tender, Bowel Sounds Present Extremeties Extremities Exam: Trace Edema Neurologic Neuro Exam: Alert, Awake Psychiatric Psych Exam: Appropriate Responses Assessment/Plan Electrolyte Assessment: Hypokalemia Problem List: (1) Hypertension ICD Codes: I10 - Hypertension Status: Chronic (2) Alcohol intoxication ICD Codes: F10.129 - Alcohol abuse with intoxication, unspecified Status: Acute (3) Chronic pancreatitis ICD Codes: K86.1 - Other chronic pancreatitis Status: Acute (4) Acute liver failure ICD Codes: K72.00 - Acute and subacute hepatic failure without coma Status: Acute (5) Hypokalemia ICD Codes: E87.6 - Hypokalemia Status: Acute (6) Hyponatremia ICD Codes: E87.1 - Hypo-osmolality and hyponatremia Status: Acute (7) Hypomagnesemia ICD Codes: E83.42 - Hypomagnesemia Status: Acute (8) Alcohol withdrawal ICD Codes: F10.239 - Alcohol withdrawal syndrome Status: Acute Plan Patient has history of alcoholism and Acute liver failure. Also has chronic pancreatitis. K is low, along with other electrolyte disorder. Most likely has electrolyte problem due to decrease oral intake, and also due to renal tubular damage. Urine K is high, started on Aldactone, also replace Po4, on K replacement as needed. Calcium is low, add Oscal. Problem Qualifiers (1) Chronic pancreatitis: Qualified Codes: K86.0 - Alcohol-induced chronic pancreatitis (2) Acute liver failure: Qualified Codes: K72.00 - Acute and subacute hepatic failure without coma (3) Alcohol withdrawal: Qualified Codes: F10.230 - Alcohol dependence with withdrawal, uncomplicated Merlin Vieira MD November 12, 2017 09:51
[2017-11-12] MEDS: INSULIN ASPART SUPPLEMENTAL SCALE SQ SCH ×4 (10:02→20:47)
[2017-11-12] MEDS: CALCIUM CARBONATE 1.25 GM (CA 500 MG) TAB PO SCH ×2 (13:20→20:20)
[2017-11-12] MEDS: MAGNESIUM OXIDE 400 MG TAB PO SCH ×2 (13:25→22:52)
[2017-11-12] MEDS ORDERED: SODIUM CHLOR 0.9% 250 ML INJ 250 ML IV ONE (14:45)
[2017-11-12] MEDS: INSULIN DETEMIR 100 UNITS/ML VIAL SQ SCH (20:46)
[2017-11-13] VITALS (13 sets, daily range): BP systolic 90–102; BP diastolic 58–68; PULSE 76–98; RESP 12–34; TEMP 97.9–98.8; O2SAT 96–100
[2017-11-13 03:03] LABS: CALCIUM 6.6 MG/DL (8.5-10.1); CREATININE 0.46 MG/DL (0.60-1.30); PHOSPHORUS 2.5 MG/DL (2.5-4.9)
[2017-11-13 03:04] LABS: BICARBONATE 27.7 MEQ/L (21.0-32.0)
[2017-11-13 03:29] LABS: CALCIUM-PROTEIN CORRECTED 7.7 MG/DL (8.5-10.1); TOTAL PROTEIN 4.9 GM/DL (6.4-8.2)
[2017-11-13] MEDS ORDERED: POTASSIUM CHLOR 20 MEQ PREMIX 100 ML IV ONE (03:30)
[2017-11-13] MEDS ORDERED: POTASSIUM CHLORIDE 25 MEQ EFFERVESCENT TAB PO ONE (03:30)
[2017-11-13] MEDS: MAGNESIUM SULFATE 1 GM PREMIX 100 ML IV SCH ×2 (03:30→04:40)
[2017-11-13] MEDS ORDERED: POTASSIUM PHOSPHATE INJ 15 MMOL in SODIUM CHLORIDE 0.9% INJ 150 ML IV ONE (04:00)
[2017-11-13] MEDS: NS + KCL 40 MEQ INJ 1,000 ML IV SCH ×3 (06:02→20:39)
[2017-11-13] MEDS: POTASSIUM PHOSPHATE/SODIUM PHOSPHATE 250 MG TAB PO SCH ×3 (06:20→20:26)
--- NOTE | 2017-11-13 07:18 | HHI.PR ---
Subjective Remarks in no acute distress. looks comfortable. potassium level trend noted. d/w the RN. Objective Vitals Vital Signs Date Time Temp Pulse Resp B/P (MAP) Pulse Ox O2 Delivery O2 Flow Rate FiO2 11/13/17 06:00 85 11/13/17 04:00 98.3 92 20 102/66 (78) 100 11/13/17 04:00 92 11/13/17 03:08 100 11/13/17 02:00 86 11/13/17 00:00 98.7 86 22 93/61 (72) 98 11/13/17 00:00 86 11/12/17 22:00 82 11/12/17 20:00 100.2 86 14 89/58 (68) 100 11/12/17 20:00 86 11/12/17 19:00 Room Air 11/12/17 18:00 84 11/12/17 16:00 97.6 78 15 93/59 (70) 99 11/12/17 16:00 78 11/12/17 14:00 73 11/12/17 12:00 71 11/12/17 12:00 98.6 71 16 83/53 (63) 99 11/12/17 10:00 87 11/12/17 08:00 98.8 77 13 80/55 (63) 96 11/12/17 08:00 77 11/12/17 08:00 96 Room Air I/O 11/12/17 11/12/17 11/12/17 11/13/17 11/13/17 11/13/17 07:00 15:00 23:00 07:00 15:00 23:00 Intake Total 1480 ml 1195 ml 1978 ml 2260 ml Output Total 1400 ml 1200 ml 1550 ml Balance 80 ml 1195 ml 778 ml 710 ml Intake Oral 480 ml 720 ml 960 ml IV Total 1000 ml 1195 ml 1258 ml 1300 ml Output Urine Total 1400 ml 1200 ml 1550 ml # Bowel Movements 2 2 0 Result Diagram: 11/13/17 0210 Imaging Last Impressions Central Venous Line 11/08/17 0000 Signed Impressions: Service Date/Time: October 11:47 - CONCLUSION: Uncomplicated line placement as above. Merlin Monteiro MD Abdomen/Pelvis CT 11/06/17 1137 Signed Impressions: Service Date/Time: Monday, November 06, 2017 14:50 - CONCLUSION: 1. Findings of chronic pancreatitis with calcifications in the head and uncinate process, dilation of the pancreatic duct and marked atrophy of the mid body and tail. 2. Diffuse hepatic fatty infiltration. No focal mass lesions. 3. Findings of portal hypertension with a portosystemic shunt emanating from the origin of the portal vein and draining into the left renal vein. 4. Cholelithiasis Merlin Monteiro MD Objective Remarks GENERAL: This is a well-nourished, well-developed patient, in no apparent distress. CARDIOVASCULAR: Regular rate and regular rhythm without murmurs, gallops, or rubs. RESPIRATORY: Clear to auscultation. Breath sounds equal bilaterally. No wheezes , rales, or rhonchi. GASTROINTESTINAL: Abdomen soft, mild generalized tenderness, nondistended. Normal, active bowel sounds MUSCULOSKELETAL: Extremities without clubbing, cyanosis, or edema. NEURO: Alert & Oriented x4 to person, place, time, situation. Moves all ext x4 Procedures central line placement. Medications and IVs Inpatient Medications Amylase/Lipase/ Protease (Creon 12-38-60) 1 cap TID PO Last administered on at 16:40; Start 11/06/17 at 18:00 Calcium Carbonate (Oscal) 500 mg Q12HR PO Last administered on 11/12/17at 20:20 ; Start 11/12/17 at 10:00 Calcium Gluconate 1 gm/Dextrose 110 ml @ 110 mls/hr ONCE ONCE IV Last administered on 11/09/17at 01:08; Start 11/09/17 at 00:15; Stop 11/09/17 at 01:14 ; Status DC Dextrose (D50w (Vial) Inj) 50 ml UNSCH PRN IV PUSH HYPOGLYCEMIA-SEE COMMENTS; Start 11/06/17 at 16:15 Flumazenil (Romazicon Inj) 0.2 mg Q1M PRN IV PUSH SEE LABEL COMMENTS; Start 11/06/17 at 16:15 Folic Acid (Folate) 1 mg DAILY PO Last administered on 11/11/17at 08:54; Start 11/07/17 at 09:00; Stop 11/12/17 at 08:59; Status DC Glucagon (Glucagon Inj) 1 mg UNSCH PRN OTHER HYPOGLYCEMIA-SEE COMMENTS; Start 11/06/17 at 16:15 Insulin Aspart (NovoLOG SUPPLEMENTAL SCALE) 1 ACHS SLIDING SCALE SQ Last administered on 11/12/17at 20:47; Start 11/06/17 at 17:00 Insulin Detemir (Levemir Inj) 10 units HS SQ Last administered on 11/12/17at 20: 46; Start 11/06/17 at 21:00 Lactulose (Lactulose Liq) 30 ml DAILY PO Last administered on 11/12/17at 09:23; Start 11/07/17 at 09:00 Lorazepam (Ativan Inj) 2 mg Q15M PRN IV PUSH CIWA > 20; Start 11/06/17 at 16:15 Lorazepam (Ativan) 2 mg Q2H PRN PO CIWA 11-14; Start 11/06/17 at 16:15 Magnesium Oxide (Mag-Ox) 400 mg Q12HR@1100,2300 PO Last administered on at 22:52; Start 11/11/17 at 11:00 Magnesium Sulfate 2 gm/Sodium Chloride 100 ml @ 50 mls/hr UNSCH PRN IV For Magnesium 1.2 - 1.6 mg/dL; Start 11/06/17 at 17:45; Stop 11/07/17 at 13:00; Status DC Magnesium Sulfate 4 gm/Dextrose 100 ml @ 25 mls/hr ONCE IV Last administered on 11/06/17at 18:52; Start 11/06/17 at 17:00; Stop 11/06/17 at 20:59; Status DC Magnesium Sulfate 4 gm/Sodium Chloride 100 ml @ 50 mls/hr UNSCH PRN IV For Magnesium 0.9 - 1.1 mg/dL; Start 11/06/17 at 17:45; Stop 11/07/17 at 13:00; Status DC Magnesium Sulfate/ Dextrose 100 ml @ 100 mls/hr Q1H IV Last administered on at 04:40; Start 11/13/17 at 03:15; Stop 11/13/17 at 05:14; Status DC Metoclopramide HCl (Reglan Inj) 10 mg ONCE ONCE IV PUSH Last administered on at 17:24; Start 11/06/17 at 14:45; Stop 11/06/17 at 14:50; Status DC Metoprolol Succinate (Toprol Xl) 25 mg DAILY PO Last administered on 11/11/17 08:54; Start 11/07/17 at 09:00 Morphine Sulfate (Morphine Inj) 4 mg ONCE ONCE IV PUSH Last administered on 17:25; Start 11/06/17 at 16:15; Stop 11/06/17 at 16:16; Status DC Multivitamins/ Minerals Therapeutic (Theragran M Tab) 1 tab DAILY PO Last administered on 11/11/17 08:58; Start 11/07/17 at 09:00; Stop 11/12/17 at 08:59 ; Status DC Ondansetron HCl (Zofran Inj) 4 mg Q6H PRN IV PUSH NAUSEA OR VOMITING Last administered on 11/07/17 07:53; Start 11/06/17 at 16:15 Oxycodone HCl (Roxicodone) 5 mg Q6H PRN PO PAIN SCALE 4 TO 10 Last administered on 11/13/17 04:56; Start 11/07/17 at 17:00 Pantoprazole Sodium (Protonix) 40 mg DAILY PO Last administered on 11/12/17at 09 :24; Start 11/07/17 at 09:00 Paroxetine HCl (Paxil) 40 mg DAILY PO Last administered on 11/12/17 09:23; Start 11/07/17 at 09:00 Phytonadione (Mephyton Liq) 5 mg DAILY PO Last administered on 11/08/17 09:00 ; Start 11/06/17 at 20:30; Stop 11/08/17 at 20:29; Status DC Potassium Chloride 30 meq/ Sodium Chloride 1,015 ml @ 100 mls/hr Q10H9M IV Last administered on 11/06/17at 19:37; Start 11/06/17 at 17:00; Stop 11/07/17 at 00: 28; Status DC Potassium Chloride/Sodium Chloride 1,000 ml @ 125 mls/hr Q8H IV Last administered on 11/13/17at 06:02; Start 11/09/17 at 16:45 Potassium Phosphate (K-Phos) 2,000 mg UNSCH PRN PO/TUBE SEE LABEL COMMENTS; Start 11/06/17 at 17:45; Stop 11/07/17 at 13:00; Status DC Potassium Phosphate 15 mmol/ Sodium Chloride 155 ml @ 38.75 mls/ hr ONCE ONCE IV Last administered on 11/13/17at 05:40; Start 11/13/17 at 04:00; Stop at 07:59 Potassium Phosphate 30 mmol/ Sodium Chloride 260 ml @ 43.333 mls/ hr ONCE ONCE IV Last administered on 11/09/17at 19:13; Start 11/09/17 at 18:00; Stop 05/19 at 23:59; Status DC Potassium Bicarb/ Potassium Chloride (K-Lyte Cl Eff) 50 meq ONCE ONCE PO Last administered on 11/13/17at 03:32; Start 11/13/17 at 03:30; Stop 11/13/17 at 03:31; Status DC Potassium Chloride 100 ml @ 50 mls/hr ONCE ONCE IV Last administered on at 03:30; Start 11/13/17 at 03:30; Stop 11/13/17 at 05:29; Status DC Potassium Chloride (KCl) 40 meq ONCE ONCE PO Last administered on 11/11/17at 21 :00; Start 11/11/17 at 20:00; Stop 11/11/17 at 20:01; Status DC Potassium Phos/ Sodium Phos (K-Phos Neutral) 250 mg Q8HR PO Last administered on 11/13/17at 06:20; Start 11/11/17 at 09:00 Rifaximin (Xifaxan) 550 mg BID PO Last administered on 11/12/17at 20:20; Start 11/06/17 at 21:00 Sodium Chloride 250 ml @ 0 mls/hr BOLUS ONCE IV ; Start 11/12/17 at 14:45; Stop 11/12/17 at 14:46; Status DC Sodium Chloride (NS Flush) UNSCH PRN IV FLUSH SEE PROTOCOL; Start 11/08/17 at 12:00 Sodium Phosphate 15 mmol/Sodium Chloride 155 ml @ 38.75 mls/ hr ONCE ONCE IV Last administered on 11/10/17at 12:00; Start 11/10/17 at 10:45; Stop 11/10/17 at 14:44; Status DC Sodium Phosphate 30 mmol/Sodium Chloride 260 ml @ 43.333 mls/ hr ONCE ONCE IV Last administered on 11/12/17at 09:21; Start 5/14/18 at 06:45; Stop 11/12/17 at 12:44; Status DC Spironolactone (Aldactone) 25 mg BID@09,18 PO Last administered on 11/12/17at 09 :25; Start 11/11/17 at 18:00; Status Future Hold Thiamine HCl (Vitamin B1) 100 mg DAILY PO Last administered on 11/12/17at 09:23 ; Start 11/07/17 at 09:00 Thiamine HCl 100 mg/Sodium Chloride 101 ml @ 101 mls/hr ONCE ONCE IV Last administered on 11/07/17at 01:13; Start 11/07/17 at 00:45; Stop 11/07/17 at 01:44; Status DC A/P Problem List: (1) Acute liver failure ICD Code: K72.00 - Acute and subacute hepatic failure without coma Status: Acute (2) Hyponatremia ICD Code: E87.1 - Hypo-osmolality and hyponatremia Status: Acute (3) Hypokalemia ICD Code: E87.6 - Hypokalemia Status: Acute (4) Chronic pancreatitis ICD Code: K86.1 - Other chronic pancreatitis Status: Acute (5) Alcohol abuse ICD Code: F10.10 - Alcohol abuse Status: Chronic (6) Hypomagnesemia ICD Code: E83.42 - Hypomagnesemia Status: Acute (7) Diabetes ICD Code: E11.9 - Type 2 diabetes mellitus without complications (8) Elevated LFTs ICD Code: R79.89 - Other specified abnormal findings of blood chemistry (9) Hyperammonemia ICD Code: E72.20 - Disorder of urea cycle metabolism, unspecified Assessment and Plan A/P (1) Acute liver failure related to the patient's continuing use of alcohol. Patient has been counseled extensively. State he has quit before but currently does not appear to have a plan. Will avoid hepatotoxic agents. GI following; started on Lactulose and Rifaximin. will continue to monitor the liver function. (2) Hyponatremia- improving. Likely combination of hypovolemic hyponatremia and chronic alcohol use. Hydrate with normal saline. sodium level has improved- continue to monitor. (3)persistent Hypokalemia/ hypomagnesemia and hypophosphatemia- continue to replace aggressively- will monitor the levels. started on Aldactone.will monitor the BP- nephrology following. (4) Chronic pancreatitis continue with Creon. (5) Alcohol abuse Patient was extensively counseled about the detrimental effects of alcohol on his health. CIWA per protocol. (6) Diabetes - Type 2 diabetes mellitus without complications Noncompliant with insulin therapy. Levemir 10 units nightly and sliding scale insulin with Accu-Cheks. (7) coagulopathy- improving. continue with vitamin K- monitor for bleeding. transfer to telemetry later this afternoon if electrolytes stable. Discharge Planning will continue to monitor the liver function and aggressively replace the electrolytes. not ready for discharge. Problem Qualifiers (1) Acute liver failure: Qualified Codes: K72.00 - Acute and subacute hepatic failure without coma (2) Chronic pancreatitis: Qualified Codes: K86.0 - Alcohol-induced chronic pancreatitis Amparo Castro MD November 13, 2017 07:18
[2017-11-13] MEDS: PANTOPRAZOLE SOD 40 MG DELAYED RELEASE TAB PO SCH (07:33)
[2017-11-13] MEDS: LORazepam 1 MG TAB PO PRN ×4 (07:34→22:53)
[2017-11-13] MEDS: RIFAXIMIN 550 MG TAB PO SCH ×2 (07:34→20:26)
[2017-11-13] MEDS: CALCIUM CARBONATE 1.25 GM (CA 500 MG) TAB PO SCH ×2 (07:34→20:26)
[2017-11-13] MEDS: LIPASE/PROTEASE/AMYLASE (12,000/38,000/60,000) CAP PO SCH ×3 (07:34→18:07)
[2017-11-13] MEDS: PARoxetine HCL 20 MG TAB PO SCH (07:34)
[2017-11-13] MEDS: THIAMINE HCL 100 MG TAB PO SCH (07:34)
[2017-11-13] MEDS: INSULIN ASPART SUPPLEMENTAL SCALE SQ SCH ×4 (07:44→20:27)
[2017-11-13] MEDS: SODIUM CHLORIDE 0.9% FLUSH 10 ML FLUSH IV FLUSH SCH ×3 (07:45→20:28)
[2017-11-13] MEDS: METOPROLOL SUCCINATE 25 MG EXTENDED RELEASE TAB PO SCH (07:45)
[2017-11-13] MEDS ORDERED: MAGNESIUM SULFATE 1 GM PREMIX 100 ML IV ONE (08:00)
[2017-11-13] MEDS: LACTULOSE SYRUP 20 GM/30 ML CUP PO SCH (09:00)
[2017-11-13] MEDS: MAGNESIUM OXIDE 400 MG TAB PO SCH ×2 (10:27→22:53)
[2017-11-13] MEDS: SPIRONOLACTONE 25 MG TAB PO SCH ×2 (10:28→18:08)
--- NOTE | 2017-11-13 10:41 | HHI.GIFU ---
Subjective Remarks alert and oriented NAD Potassium continues low as well as MG and PHOS Tremor noted as well VSS Objective Vitals I&O Vital Signs Date Time Temp Pulse Resp B/P (MAP) Pulse Ox O2 Delivery O2 Flow Rate FiO2 11/13/17 06:00 85 11/13/17 04:00 98.3 92 20 102/66 (78) 100 11/13/17 04:00 92 11/13/17 03:08 100 11/13/17 02:00 86 11/13/17 00:00 98.7 86 22 93/61 (72) 98 11/13/17 00:00 86 11/12/17 22:00 82 11/12/17 20:00 100.2 86 14 89/58 (68) 100 11/12/17 20:00 86 11/12/17 19:00 Room Air 11/12/17 18:00 84 11/12/17 16:00 97.6 78 15 93/59 (70) 99 11/12/17 16:00 78 11/12/17 14:00 73 11/12/17 12:00 71 11/12/17 12:00 98.6 71 16 83/53 (63) 99 I/O 11/12/17 11/12/17 11/12/17 11/13/17 11/13/17 11/13/17 07:00 15:00 23:00 07:00 15:00 23:00 Intake Total 1480 ml 1195 ml 1978 ml 2260 ml Output Total 1400 ml 1200 ml 1550 ml Balance 80 ml 1195 ml 778 ml 710 ml Intake Oral 480 ml 720 ml 960 ml IV Total 1000 ml 1195 ml 1258 ml 1300 ml Output Urine Total 1400 ml 1200 ml 1550 ml # Bowel Movements 2 2 0 Laboratory Laboratory Tests Test 11/13/17 02:10 Blood Urea Nitrogen 4 Creatinine 0.46 Random Glucose 86 Total Protein 4.9 Calcium Level 6.6 Phosphorus Level 2.5 Magnesium Level 1.0 Sodium Level 137 Potassium Level 2.5 Chloride Level 100 Carbon Dioxide Level 27.7 Anion Gap 9 Estimat Glomerular Filtration Rate 200 Protein Corrected Calcium 7.7 Physical Exam Last 48 hours Impressions Central Venous Line 11/08/17 0000 Signed Impressions: Service Date/Time: October 11:47 - CONCLUSION: Uncomplicated line placement as above. Merlin Monteiro MD Laboratory Tests Test 11/06/17 00:00 11/06/17 12:04 11/06/17 12:10 11/06/17 12:36 Salicylates Level LESS THAN 1.7 MG/DL Activated Partial Thromboplast Time 34.8 SEC Total Creatine Kinase 36 U/L Troponin I LESS THAN 0.02 NG/ML Lipase 161 U/L Ethyl Alcohol Level LESS THAN 3 MG/DL Ammonia 69 MCMOL/L Urine Color DARK-YELLOW Urine Turbidity HAZY Urine pH 6.5 Urine Specific [place] 1.021 Urine Protein 300 mg/dL Urine Glucose (UA) 70 mg/dL Urine Ketones 150 mg/dL Urine Occult Blood SMALL Urine Nitrite NEG Urine Bilirubin LARGE Urine Urobilinogen 8.0 MG/DL Urine Leukocyte Esterase NEG Urine RBC 2 /hpf Urine WBC 5 /hpf Urine Squamous Epithelial Cells <1 /hpf Urine Hyaline Casts 157 /lpf Urine Granular Casts 5 /lpf Urine Mucus FEW /lpf Microscopic Urinalysis Comment CULT NOT INDICATED Urine Opiates Screen NEG Urine Barbiturates Screen NEG Urine Amphetamines Screen NEG Urine Benzodiazepines Screen POS Urine Cocaine Screen NEG Urine Cannabinoids Screen NEG Test 11/06/17 22:25 11/07/17 01:49 11/07/17 02:00 11/07/17 03:58 Acetaminophen Level LESS THAN 2.0 MCG/ML B-Hydroxybutyrate 14.09 MMOL/L Blood Gas Puncture Site RT RADIAL Blood Gas Patient Temperature 98.6 Blood Gas HCO3 17 mmol/L Blood Gas Base Excess -6.6 mmol/L Blood Gas Oxygen Saturation 94 % Arterial Blood pH 7.43 Arterial Blood Partial Pressure CO2 26 mmHg Arterial Blood Partial Pressure O2 86 mmHG Arterial Blood Oxygen Content 12.5 Vol % Arterial Blood Carboxyhemoglobin 2.4 % Arterial Blood Methemoglobin 0.7 % Blood Gas Hemoglobin 9.4 G/DL Oxygen Delivery Device ROOM AIR Blood Gas Inspired Oxygen 21 % Lactic Acid Level 0.8 mmol/L White Blood Count 11.1 TH/MM3 Red Blood Count 3.14 MIL/MM3 Hemoglobin 10.5 GM/DL Hematocrit 30.0 % Mean Corpuscular Volume 95.6 FL Mean Corpuscular Hemoglobin 33.6 PG Mean Corpuscular Hemoglobin Concent 35.1 % Red Cell Distribution Width 12.7 % Platelet Count 161 TH/MM3 Mean Platelet Volume 8.3 FL Neutrophils (%) (Auto) 84.1 % Lymphocytes (%) (Auto) 4.7 % Monocytes (%) (Auto) 10.5 % Eosinophils (%) (Auto) 0.4 % Basophils (%) (Auto) 0.3 % Neutrophils # (Auto) 9.3 TH/MM3 Lymphocytes # (Auto) 0.5 TH/MM3 Monocytes # (Auto) 1.2 TH/MM3 Eosinophils # (Auto) 0.0 TH/MM3 Basophils # (Auto) 0.0 TH/MM3 CBC Comment DIFF FINAL Differential Comment Test 11/07/17 04:36 11/07/17 13:00 11/08/17 03:32 11/08/17 08:07 Serum Osmolality 296 MOSM/KG Nasal Screen MRSA (PCR) MRSA NOT DETECTED Prothrombin Time 12.8 SEC Prothromb Time International Ratio 1.3 RATIO Random Cortisol 28.3 MCG/DL Test 11/08/17 14:01 11/09/17 13:50 Blood Urea Nitrogen 2 MG/DL LESS THAN 1 MG/DL Creatinine 0.81 MG/DL 0.49 MG/DL Random Glucose 114 MG/DL 111 MG/DL Total Protein 5.9 GM/DL 5.6 GM/DL Albumin 2.3 GM/DL Calcium Level 7.0 MG/DL 7.0 MG/DL Phosphorus Level 0.8 MG/DL 0.4 MG/DL Magnesium Level 1.3 MG/DL 1.3 MG/DL Alkaline Phosphatase 229 U/L Aspartate Amino Transf (AST/SGOT) 104 U/L Alanine Aminotransferase (ALT/SGPT) 42 U/L Total Bilirubin 10.2 MG/DL Direct Bilirubin 8.7 MG/DL Sodium Level 130 MEQ/L 134 MEQ/L Potassium Level 2.2 MEQ/L 1.8 MEQ/L Chloride Level 82 MEQ/L 83 MEQ/L Carbon Dioxide Level 35.8 MEQ/L 41.7 MEQ/L Indirect Bilirubin 1.5 MG/DL Anion Gap 9 MEQ/L Estimat Glomerular Filtration Rate 186 ML/MIN Protein Corrected Calcium 7.8 MG/DL Jaundiced/ icteric sclera NECK: Neck is supple, no JVD, no lymphadenopathy. CHEST: Chest is clear to auscultation and percussion. CARDIAC: Regular rate and rhythm with no murmur gallop or rubs. ABDOMEN: Liver 4 FB below RCM, tender in epigastric region bs pos EXTREMITIES: No clubbing, cyanosis, or edema. SKIN: Normal; no rash; no jaundice. Assessment and Plan Assessment: (1) Chronic pancreatitis ICD Codes: K86.1 - Other chronic pancreatitis Status: Acute (2) Hypokalemia ICD Codes: E87.6 - Hypokalemia Status: Acute (3) Alcohol withdrawal ICD Codes: F10.239 - Alcohol withdrawal syndrome Status: Acute (4) Hyperammonemia ICD Codes: E72.20 - Disorder of urea cycle metabolism, unspecified (5) Elevated LFTs ICD Codes: R79.89 - Other specified abnormal findings of blood chemistry (6) Alcohol abuse ICD Codes: F10.10 - Alcohol abuse Status: Chronic (7) Abdominal pain ICD Codes: R10.9 - Unspecified abdominal pain Status: Acute (8) Acute liver failure ICD Codes: K72.00 - Acute and subacute hepatic failure without coma Status: Acute (9) Noncompliance ICD Codes: Z91.19 - Patient's noncompliance with other medical treatment and regimen Status: Acute Plan APPEARS STABLE PRESENT THERAPY AND REPLACE K AND MG ......WILL SIGN OFF ...CALL IF NEEDED AGAIN THANKS F/U AFTER D/C Problem Qualifiers (1) Chronic pancreatitis: Qualified Codes: K86.0 - Alcohol-induced chronic pancreatitis (2) Alcohol withdrawal: Qualified Codes: F10.230 - Alcohol dependence with withdrawal, uncomplicated (3) Abdominal pain: Qualified Codes: R10.9 - Unspecified abdominal pain (4) Acute liver failure: Qualified Codes: K72.00 - Acute and subacute hepatic failure without coma Molina Velasquez MD November 13, 2017 10:41
[2017-11-13] MEDS: POTASSIUM CHLORIDE 20 MEQ CONTROLLED RELEASE TAB PO SCH ×3 (14:12→20:27)
--- NOTE | 2017-11-13 16:22 | HHI.NPPN ---
Subjective History of Present Illness 42-year-old male with a past medical history of chronic alcoholism and chronic liver disease, history of pancreatitis, diabetes mellitus, depression, who was admitted with nausea, vomiting and epigastric pain. I was called to see the patient because of low potassium and electrolyte disorder. The patient has history of hypokalemia in the past and his potassium has been low in the past. Additional Remarks Patient is resting, no shortness of breath. Potassium level is at 2.6. (Megha Del Cid) Review of Systems General Constitutional: Fatigue (Megha Del Cid) Cardiovascular Cardiac: JAIMES (Megha Del Cid) Objective Data Data Vital Signs Date Time Temp Pulse Resp B/P (MAP) Pulse Ox O2 Delivery O2 Flow Rate FiO2 11/13/17 14:00 80 11/13/17 12:00 98.4 76 12 90/62 (71) 100 11/13/17 12:00 76 11/13/17 10:00 78 11/13/17 08:00 98.6 79 13 91/58 (69) 100 11/13/17 08:00 79 11/13/17 07:00 100 Room Air 11/13/17 06:00 85 11/13/17 04:00 98.3 92 20 102/66 (78) 100 11/13/17 04:00 92 11/13/17 03:08 100 11/13/17 02:00 86 11/13/17 00:00 98.7 86 22 93/61 (72) 98 11/13/17 00:00 86 11/12/17 22:00 82 11/12/17 20:00 100.2 86 14 89/58 (68) 100 11/12/17 20:00 86 11/12/17 19:00 Room Air 11/12/17 18:00 84 (Megha Del Cid) -: 11/13/17 1206 Imaging Last Impressions Central Venous Line 11/08/17 0000 Signed Impressions: Service Date/Time: October 11:47 - CONCLUSION: Uncomplicated line placement as above. Merlin Monteiro MD Abdomen/Pelvis CT 11/06/17 1137 Signed Impressions: Service Date/Time: Monday, November 06, 2017 14:50 - CONCLUSION: 1. Findings of chronic pancreatitis with calcifications in the head and uncinate process, dilation of the pancreatic duct and marked atrophy of the mid body and tail. 2. Diffuse hepatic fatty infiltration. No focal mass lesions. 3. Findings of portal hypertension with a portosystemic shunt emanating from the origin of the portal vein and draining into the left renal vein. 4. Cholelithiasis Merlin Monteiro MD (GelMegha frey DETAIL MANAGER) Physical Exam General Appearance: No Acute Distress, Comfortable (GellermannLinhMegha M. DETAIL MANAGER) Eyes Eye Exam: Pupils Equal (GellermannLinhMegha M. DETAIL MANAGER) Throat Throat Exam: Oral Mucosa [place] & Moist (GellerLinh goldmanne M. DETAIL MANAGER) Neck Neck Exam: Neck Supple (GellermannLinhMegha M. DETAIL MANAGER) Pulmonary Resp Exam: Breath Sounds Equal, No Distress, Rhonchi, Decreased Bases (GellerLinh goldmanne M. DETAIL MANAGER) Cardiology CV Exam: Regular, Normal Sinus Rhythm (ToddlerMegha goldman. DETAIL MANAGER) Gastrointestinal/Abdomen GI Exam: Soft, Non-Tender, Bowel Sounds Present (ToddlermannLinhMegha M. DETAIL MANAGER) Extremeties Extremities Exam: Trace Edema (Linh Del Cidne M. DETAIL MANAGER) Neurologic Neuro Exam: Alert, Awake (ToddlerMegha goldman M. DETAIL MANAGER) Psychiatric Psych Exam: Appropriate Responses (Megha Del Cid M. DETAIL MANAGER) Assessment/Plan Electrolyte Assessment: Hypokalemia Problem List: (1) Hypertension ICD Codes: I10 - Hypertension Status: Chronic (2) Alcohol intoxication ICD Codes: F10.129 - Alcohol abuse with intoxication, unspecified Status: Acute (3) Chronic pancreatitis ICD Codes: K86.1 - Other chronic pancreatitis Status: Acute (4) Acute liver failure ICD Codes: K72.00 - Acute and subacute hepatic failure without coma Status: Acute (5) Hypokalemia ICD Codes: E87.6 - Hypokalemia Status: Acute (6) Hyponatremia ICD Codes: E87.1 - Hypo-osmolality and hyponatremia Status: Acute (7) Hypomagnesemia ICD Codes: E83.42 - Hypomagnesemia Status: Acute (8) Alcohol withdrawal ICD Codes: F10.239 - Alcohol withdrawal syndrome Status: Acute Plan Patient has history of alcoholism and Acute liver failure. Also has chronic pancreatitis. K is low, along with other electrolyte disorder. Most likely has electrolyte problem due to decrease oral intake, and also due to renal tubular damage. Urine K is high, on Aldactone Calcium is low, on Oscal. Potassium 2.6 replacement has already been ordered Labs in AM (Megha Del Cid) Plan Patient seen and examined, agree with above. K is still low, on Aldactone. (Merlin Vieira MD) Problem Qualifiers (1) Chronic pancreatitis: Qualified Codes: K86.0 - Alcohol-induced chronic pancreatitis (2) Acute liver failure: Qualified Codes: K72.00 - Acute and subacute hepatic failure without coma (3) Alcohol withdrawal: Qualified Codes: F10.230 - Alcohol dependence with withdrawal, uncomplicated Megha Del Cid November 13, 2017 16:22 Merlin Vieira MD November 13, 2017 21:31
[2017-11-13] MEDS: INSULIN DETEMIR 100 UNITS/ML VIAL SQ SCH (20:27)
[2017-11-14] VITALS (12 sets, daily range): BP systolic 89–118; BP diastolic 56–73; PULSE 72–102; RESP 15–24; TEMP 98.6–99.1; O2SAT 93–100
[2017-11-14] MEDS: POTASSIUM CHLOR 20 MEQ PREMIX 100 ML IV SCH ×2 (01:05→04:47)
[2017-11-14 04:26] LABS: BICARBONATE 27.2 MEQ/L (21.0-32.0); CALCIUM 6.5 MG/DL (8.5-10.1); CREATININE 0.37 MG/DL (0.60-1.30)
[2017-11-14 04:48] LABS: CALCIUM-PROTEIN CORRECTED 7.6 MG/DL (8.5-10.1); TOTAL PROTEIN 4.9 GM/DL (6.4-8.2)
[2017-11-14] MEDS: NS + KCL 40 MEQ INJ 1,000 ML IV SCH ×3 (05:24→21:39)
[2017-11-14] MEDS: LORazepam 1 MG TAB PO PRN ×5 (05:55→21:41)
[2017-11-14] MEDS: POTASSIUM PHOSPHATE/SODIUM PHOSPHATE 250 MG TAB PO SCH ×3 (06:01→21:40)
[2017-11-14] MEDS: INSULIN ASPART SUPPLEMENTAL SCALE SQ SCH ×4 (08:00→21:43)
[2017-11-14] MEDS: LIPASE/PROTEASE/AMYLASE (12,000/38,000/60,000) CAP PO SCH ×3 (08:19→15:53)
[2017-11-14] MEDS: CALCIUM CARBONATE 1.25 GM (CA 500 MG) TAB PO SCH ×2 (08:20→21:41)
[2017-11-14] MEDS: RIFAXIMIN 550 MG TAB PO SCH ×2 (08:20→21:40)
[2017-11-14] MEDS: SPIRONOLACTONE 25 MG TAB PO SCH ×2 (08:20→15:54)
[2017-11-14] MEDS: SODIUM CHLORIDE 0.9% FLUSH 10 ML FLUSH IV FLUSH SCH ×3 (08:20→21:52)
[2017-11-14] MEDS: PANTOPRAZOLE SOD 40 MG DELAYED RELEASE TAB PO SCH (08:20)
[2017-11-14] MEDS: PARoxetine HCL 20 MG TAB PO SCH (08:20)
[2017-11-14] MEDS: THIAMINE HCL 100 MG TAB PO SCH (08:20)
[2017-11-14] MEDS: LACTULOSE SYRUP 20 GM/30 ML CUP PO SCH (08:20)
[2017-11-14] MEDS: METOPROLOL SUCCINATE 25 MG EXTENDED RELEASE TAB PO SCH (08:21)
[2017-11-14] MEDS: MAGNESIUM OXIDE 400 MG TAB PO SCH (11:27)
--- NOTE | 2017-11-14 14:49 | HHI.PR ---
Subjective Remarks No complaints. Abdominal pain better. Tolerating food. Objective Vitals Vital Signs Date Time Temp Pulse Resp B/P (MAP) Pulse Ox O2 Delivery O2 Flow Rate FiO2 11/14/17 14:00 79 11/14/17 12:00 73 19 118/72 (87) 100 11/14/17 12:00 73 11/14/17 10:00 72 11/14/17 08:00 99.1 77 15 100/60 (73) 100 11/14/17 08:00 77 11/14/17 07:00 100 Room Air 11/14/17 06:00 82 11/14/17 05:16 16 11/14/17 04:00 98.7 81 24 90/56 (67) 100 11/14/17 04:00 81 11/14/17 02:00 102 11/14/17 00:00 83 11/14/17 00:00 99.1 83 20 89/60 (70) 100 11/13/17 22:00 92 11/13/17 20:00 98 11/13/17 20:00 97.9 98 25 98/64 (75) 96 11/13/17 19:00 Room Air 11/13/17 18:00 81 11/13/17 16:00 98.8 81 34 95/68 (77) 97 11/13/17 16:00 81 I/O 11/13/17 11/13/17 11/13/17 11/14/17 11/14/17 11/14/17 07:00 15:00 23:00 07:00 15:00 23:00 Intake Total 2260 ml 1255 ml 2100 ml 1253 ml 1100 ml Output Total 1550 ml 2450 ml 1825 ml Balance 710 ml 1255 ml -350 ml -572 ml 1100 ml Intake Oral 960 ml 1100 ml 960 ml IV Total 1300 ml 1255 ml 1000 ml 293 ml 1100 ml Output Urine Total 1550 ml 2450 ml 1825 ml # Bowel Movements 0 1 1 2 Result Diagram: 11/14/17 0340 Other Results Item Value Date Time Bedside Blood Glucose 157 mg/dl 11/14/17 1200 Bedside Blood Glucose 118 mg/dl 11/14/17 0800 Objective Remarks GENERAL: This is a well-nourished, well-developed patient, in no apparent distress. CARDIOVASCULAR: Regular rate and rhythm RESPIRATORY: Clear to auscultation. Breath sounds equal bilaterally. No wheezes , rales, or rhonchi. GASTROINTESTINAL: Abdomen soft, mild epigastric tenderness, with no rebound or guarding. Nondistended. Normal active bowel sounds MUSCULOSKELETAL: Extremities without clubbing, cyanosis, or edema. NEURO: Alert & Oriented x4 to person, place, time, situation. Moves all ext x4 Procedures central line placement. A/P Problem List: (1) Acute liver failure ICD Code: K72.00 - Acute and subacute hepatic failure without coma Status: Acute (2) Hyponatremia ICD Code: E87.1 - Hypo-osmolality and hyponatremia Status: Acute (3) Hypokalemia ICD Code: E87.6 - Hypokalemia Status: Acute (4) Chronic pancreatitis ICD Code: K86.1 - Other chronic pancreatitis Status: Acute (5) Alcohol abuse ICD Code: F10.10 - Alcohol abuse Status: Chronic (6) Hypomagnesemia ICD Code: E83.42 - Hypomagnesemia Status: Acute (7) Diabetes ICD Code: E11.9 - Type 2 diabetes mellitus without complications (8) Elevated LFTs ICD Code: R79.89 - Other specified abnormal findings of blood chemistry (9) Hyperammonemia ICD Code: E72.20 - Disorder of urea cycle metabolism, unspecified Assessment and Plan (1) Acute liver failure related to the patient's continuing use of alcohol. Patient has been counseled extensively. Will avoid hepatotoxic agents. GI following and has cleared the patient for discharge; started on Lactulose and Rifaximin. will continue to monitor the liver function which is trending down. (2) Hyponatremia- improving. Likely combination of hypovolemic hyponatremia and chronic alcohol use. Hydrate with normal saline. sodium level has improved- continue to monitor. (3)persistent Hypokalemia/ hypomagnesemia and hypophosphatemia- continue to replace aggressively- will monitor the levels. started on Aldactone.will monitor the BP- nephrology following and appreciate recommendations (4) Chronic pancreatitis continue with Creon. (5) Alcohol abuse Patient was extensively counseled about the detrimental effects of alcohol on his health. [place] protocol to prevent withdrawal. (6) Diabetes Type 2 without complications Noncompliant with insulin therapy. Levemir 10 units nightly and sliding scale insulin with Accu-Cheks. Overall fair glycemic control (7) coagulopathy- improving. continue with vitamin K- monitor for bleeding. 8) DVT prophylaxis no intra-coagulation due to liver disease, -bilateral SCDs Transfer out of intensive care unit. Discharge Planning Home when medically stable, home health care for nursing education follow-up if able to arrange Problem Qualifiers (1) Acute liver failure: Qualified Codes: K72.00 - Acute and subacute hepatic failure without coma (2) Chronic pancreatitis: Qualified Codes: K86.0 - Alcohol-induced chronic pancreatitis Justine River MD November 14, 2017 14:49
--- NOTE | 2017-11-14 16:19 | HHI.NPPN ---
Subjective History of Present Illness 42-year-old male with a past medical history of chronic alcoholism and chronic liver disease, history of pancreatitis, diabetes mellitus, depression, who was admitted with nausea, vomiting and epigastric pain. I was called to see the patient because of low potassium and electrolyte disorder. The patient has history of hypokalemia in the past and his potassium has been low in the past. Additional Remarks Patient is alert, started eating better, no abd. pain. Review of Systems General Constitutional: Fatigue Cardiovascular Cardiac: JAIMES Objective Data Data 11/14/17 11/15/17 18:59 06:59 Intake Total 1100 ml Balance 1100 ml IV Total 1100 ml # Bowel Movements 2 Vital Signs Date Time Temp Pulse Resp B/P (MAP) Pulse Ox O2 Delivery O2 Flow Rate FiO2 11/14/17 14:00 79 11/14/17 12:00 73 19 118/72 (87) 100 11/14/17 12:00 73 11/14/17 10:00 72 11/14/17 08:00 99.1 77 15 100/60 (73) 100 11/14/17 08:00 77 11/14/17 07:00 100 Room Air 11/14/17 06:00 82 11/14/17 05:16 16 11/14/17 04:00 98.7 81 24 90/56 (67) 100 11/14/17 04:00 81 11/14/17 02:00 102 11/14/17 00:00 83 11/14/17 00:00 99.1 83 20 89/60 (70) 100 11/13/17 22:00 92 11/13/17 20:00 98 11/13/17 20:00 97.9 98 25 98/64 (75) 96 11/13/17 19:00 Room Air 11/13/17 18:00 81 -: 11/14/17 0340 Physical Exam General Appearance: No Acute Distress, Comfortable Eyes Eye Exam: Pupils Equal Throat Throat Exam: Oral Mucosa [place] & Moist Neck Neck Exam: Neck Supple Pulmonary Resp Exam: Breath Sounds Equal, No Distress, Rhonchi, Decreased Bases Cardiology CV Exam: Regular, Normal Sinus Rhythm Gastrointestinal/Abdomen GI Exam: Soft, Non-Tender, Bowel Sounds Present Extremeties Extremities Exam: Trace Edema Neurologic Neuro Exam: Alert, Awake Psychiatric Psych Exam: Appropriate Responses Assessment/Plan Electrolyte Assessment: Hypokalemia Problem List: (1) Hypertension ICD Codes: I10 - Hypertension Status: Chronic (2) Alcohol intoxication ICD Codes: F10.129 - Alcohol abuse with intoxication, unspecified Status: Acute (3) Chronic pancreatitis ICD Codes: K86.1 - Other chronic pancreatitis Status: Acute (4) Acute liver failure ICD Codes: K72.00 - Acute and subacute hepatic failure without coma Status: Acute (5) Hypokalemia ICD Codes: E87.6 - Hypokalemia Status: Acute (6) Hyponatremia ICD Codes: E87.1 - Hypo-osmolality and hyponatremia Status: Acute (7) Hypomagnesemia ICD Codes: E83.42 - Hypomagnesemia Status: Acute (8) Alcohol withdrawal ICD Codes: F10.239 - Alcohol withdrawal syndrome Status: Acute Plan Patient has improvement in the K level. Started eating better and also on Aldactone. Calcium is also improving. BP is stable. Continue Aldactone and encourage oral intake. Problem Qualifiers (1) Hypertension: Qualified Codes: I10 - Essential (primary) hypertension (2) Chronic pancreatitis: Qualified Codes: K86.0 - Alcohol-induced chronic pancreatitis (3) Acute liver failure: Qualified Codes: K72.00 - Acute and subacute hepatic failure without coma (4) Alcohol withdrawal: Qualified Codes: F10.230 - Alcohol dependence with withdrawal, uncomplicated Merlin Vieira MD November 14, 2017 16:19
[2017-11-14] MEDS: INSULIN DETEMIR 100 UNITS/ML VIAL SQ SCH (21:42)
[2017-11-15] VITALS (7 sets, daily range): BP systolic 86–104; BP diastolic 53–70; PULSE 79–98; RESP 16–20; TEMP 97.8–99.2; O2SAT 97–100
[2017-11-15] MEDS: MAGNESIUM OXIDE 400 MG TAB PO SCH ×3 (00:03→22:54)
[2017-11-15] MEDS: LORazepam 1 MG TAB PO PRN ×4 (03:41→22:51)
[2017-11-15] MEDS: NS + KCL 40 MEQ INJ 1,000 ML IV SCH ×3 (05:16→22:51)
[2017-11-15] MEDS: POTASSIUM PHOSPHATE/SODIUM PHOSPHATE 250 MG TAB PO SCH ×3 (06:02→22:43)
[2017-11-15] MEDS: INSULIN ASPART SUPPLEMENTAL SCALE SQ SCH ×4 (08:00→22:47)
[2017-11-15] MEDS: THIAMINE HCL 100 MG TAB PO SCH (08:56)
[2017-11-15] MEDS: METOPROLOL SUCCINATE 25 MG EXTENDED RELEASE TAB PO SCH (08:56)
[2017-11-15] MEDS: PANTOPRAZOLE SOD 40 MG DELAYED RELEASE TAB PO SCH (08:56)
[2017-11-15] MEDS: PARoxetine HCL 20 MG TAB PO SCH (08:56)
[2017-11-15] MEDS: CALCIUM CARBONATE 1.25 GM (CA 500 MG) TAB PO SCH ×2 (08:56→22:44)
[2017-11-15] MEDS: SPIRONOLACTONE 25 MG TAB PO SCH ×2 (08:56→17:16)
[2017-11-15] MEDS: RIFAXIMIN 550 MG TAB PO SCH ×2 (08:56→22:43)
[2017-11-15] MEDS: POTASSIUM CHLORIDE 20 MEQ CONTROLLED RELEASE TAB PO SCH (08:56)
[2017-11-15] MEDS: LIPASE/PROTEASE/AMYLASE (12,000/38,000/60,000) CAP PO SCH ×3 (09:00→17:16)
[2017-11-15] MEDS: SODIUM CHLORIDE 0.9% FLUSH 10 ML FLUSH IV FLUSH SCH ×3 (09:00→22:42)
[2017-11-15] MEDS: LACTULOSE SYRUP 20 GM/30 ML CUP PO SCH (09:02)
--- NOTE | 2017-11-15 12:54 | HHI.NPPN ---
Subjective History of Present Illness 42-year-old male with a past medical history of chronic alcoholism and chronic liver disease, history of pancreatitis, diabetes mellitus, depression, who was admitted with nausea, vomiting and epigastric pain. I was called to see the patient because of low potassium and electrolyte disorder. The patient has history of hypokalemia in the past and his potassium has been low in the past. Additional Remarks Patient is alert resting in bed. Denies any shortness of breath. Reports nausea. (Megha Del Cid) Review of Systems General Constitutional: Fatigue (Megha Del Cid) Gastrointestinal GI Remarks nausea (Megha Del Cid) Objective Data Data Vital Signs Date Time Temp Pulse Resp B/P (MAP) Pulse Ox O2 Delivery O2 Flow Rate FiO2 11/15/17 11:37 98.6 86 20 104/70 (81) 98 11/15/17 07:35 98.2 95 20 101/65 (77) 97 11/15/17 04:00 98.9 91 18 91/54 (66) 99 11/15/17 00:00 99.2 91 16 98/64 (75) 98 11/14/17 21:30 Room Air 11/14/17 20:00 98.6 80 16 93/58 (70) 96 11/14/17 18:40 98.9 94 20 107/61 (76) 93 11/14/17 18:00 94 11/14/17 16:00 97 11/14/17 16:00 98.7 97 17 102/73 (83) 100 11/14/17 14:00 79 (Megha Del Cid) -: 11/14/17 0340 Physical Exam General Appearance: No Acute Distress, Comfortable (Megha Del Cid) Eyes Eye Exam: Pupils Equal (Megha Del Cid) Throat Throat Exam: Oral Mucosa [place] & Moist (Megha Del Cid) Neck Neck Exam: Neck Supple (Megha Del Cid) Pulmonary Resp Exam: Breath Sounds Equal, No Distress, Rhonchi, Decreased Bases (Megha Del Cid) Cardiology CV Exam: Regular, Normal Sinus Rhythm (Megha Del Cid) Gastrointestinal/Abdomen GI Exam: Soft, Non-Tender, Bowel Sounds Present (Megha Del Cid) Extremeties Extremities Exam: Trace Edema (Megha Del Cid) Neurologic Neuro Exam: Alert, Awake (Megha Del Cid) Psychiatric Psych Exam: Appropriate Responses (Megha Del Cid) Assessment/Plan Electrolyte Assessment: Hypokalemia Problem List: (1) Hypertension ICD Codes: I10 - Hypertension Status: Chronic (2) Alcohol intoxication ICD Codes: F10.129 - Alcohol abuse with intoxication, unspecified Status: Acute (3) Chronic pancreatitis ICD Codes: K86.1 - Other chronic pancreatitis Status: Acute (4) Acute liver failure ICD Codes: K72.00 - Acute and subacute hepatic failure without coma Status: Acute (5) Hypokalemia ICD Codes: E87.6 - Hypokalemia Status: Acute (6) Hyponatremia ICD Codes: E87.1 - Hypo-osmolality and hyponatremia Status: Acute (7) Hypomagnesemia ICD Codes: E83.42 - Hypomagnesemia Status: Acute (8) Alcohol withdrawal ICD Codes: F10.239 - Alcohol withdrawal syndrome Status: Acute Plan Patient has history of alcoholism and Acute liver failure. Also has chronic pancreatitis. K is low, along with other electrolyte disorder. Most likely has electrolyte problem due to decrease oral intake, and also due to renal tubular damage. Continue aldactone Encourage oral intake Continue IVF Continue magnesium, calcium, and potassium replacement Labs in AM (Megha Del Cid) Plan Patient seen and examined, agree with above. Has electrolyte disorder due to alcoholism and nutritional deficiency. (Merlin Vieira MD) Problem Qualifiers (1) Hypertension: Qualified Codes: I10 - Essential (primary) hypertension (2) Chronic pancreatitis: Qualified Codes: K86.0 - Alcohol-induced chronic pancreatitis (3) Acute liver failure: Qualified Codes: K72.00 - Acute and subacute hepatic failure without coma (4) Alcohol withdrawal: Qualified Codes: F10.230 - Alcohol dependence with withdrawal, uncomplicated Megha Del Cid November 15, 2017 12:54 Merlin Vieira MD November 19, 2017 19:16
[2017-11-15] MEDS ORDERED: POTASSIUM CHLORIDE 25 MEQ EFFERVESCENT TAB PO ONE (13:00)
[2017-11-15] MEDS ORDERED: MAGNESIUM SULFATE 1 GM PREMIX 100 ML IV SCH (13:00)
[2017-11-15] MEDS ORDERED: CALCIUM CARBONATE 1.25 GM (CA 500 MG) TAB PO SCH (21:00)
--- NOTE | 2017-11-15 22:08 | HHI.PR ---
Subjective Remarks Patient seen this afternoon around 3 PM. Says he is feeling comfortable. Denies any chest pain or shortness of breath. Denies abdominal pain. Objective Vital Signs Date Time Temp Pulse Resp B/P (MAP) Pulse Ox O2 Delivery O2 Flow Rate FiO2 11/15/17 20:01 18 11/15/17 15:36 98.9 79 20 102/65 (77) 97 11/15/17 11:37 98.6 86 20 104/70 (81) 98 11/15/17 07:35 98.2 95 20 101/65 (77) 97 11/15/17 04:00 98.9 91 18 91/54 (66) 99 11/15/17 00:00 99.2 91 16 98/64 (75) 98 I/O 11/14/17 11/14/17 11/14/17 11/15/17 11/15/17 11/15/17 07:00 15:00 23:00 07:00 15:00 23:00 Intake Total 1253 ml 1100 ml 855 ml 2947 ml Output Total 1825 ml 1400 ml 1400 ml Balance -572 ml 1100 ml -545 ml 1547 ml Intake Oral 960 ml 480 ml 600 ml IV Total 293 ml 1100 ml 375 ml 2347 ml Output Urine Total 1825 ml 1400 ml 1400 ml # Bowel Movements 1 2 Result Diagram: 11/14/17 0340 Objective Remarks GENERAL: patient sleeping, wakes up for exam. Appears comfortable. SKIN: Warm and dry. HEAD: Normocephalic. EYES: No scleral icterus. No injection or drainage. NECK: Supple, trachea midline. No JVD. CARDIOVASCULAR: Regular rate and rhythm without murmurs, gallops, or rubs. RESPIRATORY: Breath sounds equal bilaterally. No accessory muscle use. GASTROINTESTINAL: Abdomen soft, non-tender, nondistended. MUSCULOSKELETAL: No cyanosis, or edema. BACK: Nontender without obvious deformity. No CVA tenderness. A/P Assessment and Plan //Acute liver failure related to the patient's continuing use of alcohol. Patient has been counseled extensively. Will avoid hepatotoxic agents. GI following and has cleared the patient for discharge; started on Lactulose and Rifaximin. will continue to monitor the liver function which is trending down. //Hyponatremia- improving. Likely combination of hypovolemic hyponatremia and chronic alcohol use. Hydrate with normal saline. sodium level has improved- continue to monitor. //persistent Hypokalemia/ hypomagnesemia and hypophosphatemia- continue to replace aggressively- will monitor the levels. started on Aldactone.will monitor the BP- nephrology following and appreciate recommendations =11/15. Replaced again and recheck tomorrow. Appreciate nephrology assistance. // Chronic pancreatitis continue with Creon. // Alcohol abuse Patient was extensively counseled about the detrimental effects of alcohol on his health. [facility] protocol to prevent withdrawal. //Diabetes Type 2 without complications Noncompliant with insulin therapy. Levemir 10 units nightly and sliding scale insulin with Accu-Cheks. Overall fair glycemic control //coagulopathy- improving. continue with vitamin K- monitor for bleeding. //DVT prophylaxis no intra-coagulation due to liver disease, -bilateral SCDs Transfer out of intensive care unit. Discharge Planning Home when medically stable, home health care for nursing education follow-up if able to arrange. PT consult ordered and pending Cesar Grullon MD November 15, 2017 22:08
[2017-11-15] MEDS: INSULIN DETEMIR 100 UNITS/ML VIAL SQ SCH (22:47)
[2017-11-16] VITALS: BP 89/60; PULSE 84; RESP 16; TEMP 98.4; O2SAT 98
[2017-11-16 04:00] VITALS: BP 90/63; PULSE 112; PULSE 74; RESP 16; TEMP 98.2; O2SAT 98
[2017-11-16] MEDS: NS + KCL 40 MEQ INJ 1,000 ML IV SCH ×2 (04:57→16:22)
[2017-11-16 06:05] LABS: AUTOMATED NEUTROPHIL # 11.9 TH/MM3 (1.8-7.7); BASOPHIL # 0.2 TH/MM3 (0-0.2); BASOPHIL % 1.1 % (0.0-2.0); EOSINOPHIL # 0.1 TH/MM3 (0-0.4); EOSINOPHIL % 0.8 % (0.0-4.0); HEMATOCRIT 25.5 % (39.0-51.0); HEMOGLOBIN 8.8 GM/DL (13.0-17.0); LYMPH % 13.7 % (9.0-44.0); LYMPHOCYTE # 2.1 TH/MM3 (1.0-4.8); MEAN CELL VOLUME 98.3 FL (80.0-100.0); MEAN CORPUSCULAR HGB CONC 34.6 % (32.0-36.0); MONO % 8.3 % (0.0-8.0); MONOCYTE # 1.3 TH/MM3 (0-0.9); NEUT % 76.1 % (16.0-70.0); PLATELET COUNT 358 TH/MM3 (150-450); RED CELL DISTRIBUTION WIDTH 15.2 % (11.6-17.2); WHITE BLOOD COUNT 15.6 TH/MM3 (4.0-11.0)
[2017-11-16 06:35] LABS: BICARBONATE 23.7 MEQ/L (21.0-32.0); CALCIUM 6.4 MG/DL (8.5-10.1); CREATININE 0.41 MG/DL (0.60-1.30); MAGNESIUM 0.6 MG/DL (1.5-2.5); PHOSPHORUS 3.2 MG/DL (2.5-4.9)
[2017-11-16] MEDS: POTASSIUM PHOSPHATE/SODIUM PHOSPHATE 250 MG TAB PO SCH ×3 (06:43→22:22)
[2017-11-16 07:03] LABS: CALCIUM-PROTEIN CORRECTED 7.5 MG/DL (8.5-10.1); TOTAL PROTEIN 4.9 GM/DL (6.4-8.2)
[2017-11-16 08:00] VITALS: BP 107/71; PULSE 75; RESP 18; TEMP 97.3; O2SAT 98
[2017-11-16] MEDS: INSULIN ASPART SUPPLEMENTAL SCALE SQ SCH ×4 (08:00→22:24)
--- NOTE | 2017-11-16 09:00 | HHI.NPPN ---
Subjective History of Present Illness 42-year-old male with a past medical history of chronic alcoholism and chronic liver disease, history of pancreatitis, diabetes mellitus, depression, who was admitted with nausea, vomiting and epigastric pain. I was called to see the patient because of low potassium and electrolyte disorder. The patient has history of hypokalemia in the past and his potassium has been low in the past. Additional Remarks Sitting on side of bed eating breakfast. Denies any shortness of breath. No complaints. (Megha Del Cid) Objective Data Data Vital Signs Date Time Temp Pulse Resp B/P (MAP) Pulse Ox O2 Delivery O2 Flow Rate FiO2 11/16/17 08:00 97.3 75 18 107/71 (83) 98 11/16/17 05:55 18 11/16/17 04:00 98.2 74 16 90/63 (72) 98 11/16/17 00:00 98.4 84 16 89/60 (70) 98 11/15/17 22:45 97.8 98 18 98/63 (75) 100 11/15/17 20:00 98.0 79 16 86/53 (64) 99 11/15/17 15:36 98.9 79 20 102/65 (77) 97 11/15/17 11:37 98.6 86 20 104/70 (81) 98 (Megha Del Cid) -: 11/16/17 0525 11/16/17 0525 Imaging Last Impressions Central Venous Line 11/08/17 0000 Signed Impressions: Service Date/Time: October 11:47 - CONCLUSION: Uncomplicated line placement as above. Merlin Monteiro MD Abdomen/Pelvis CT 11/06/17 1137 Signed Impressions: Service Date/Time: Monday, November 06, 2017 14:50 - CONCLUSION: 1. Findings of chronic pancreatitis with calcifications in the head and uncinate process, dilation of the pancreatic duct and marked atrophy of the mid body and tail. 2. Diffuse hepatic fatty infiltration. No focal mass lesions. 3. Findings of portal hypertension with a portosystemic shunt emanating from the origin of the portal vein and draining into the left renal vein. 4. Cholelithiasis Merlin Monteiro MD (Megha Del Cid) Physical Exam General Appearance: No Acute Distress, Comfortable (Megha Del Cid) Eyes Eye Exam: Pupils Equal (Megha Del Cid) Throat Throat Exam: Oral Mucosa [place] & Moist (Megha Del Cid) Neck Neck Exam: Neck Supple (Megha Del Cid) Pulmonary Resp Exam: Breath Sounds Equal, No Distress (Megha Del Cid) Cardiology CV Exam: Regular, Normal Sinus Rhythm (Megha Del Cid) Gastrointestinal/Abdomen GI Exam: Soft, Non-Tender, Bowel Sounds Present (Megha Del Cid) Extremeties Extremities Exam: Trace Edema (Megha Del Cid) Neurologic Neuro Exam: Alert, Awake (Megha Del Cid) Psychiatric Psych Exam: Appropriate Responses (Megha Del Cid) Assessment/Plan Electrolyte Assessment: Hypokalemia Problem List: (1) Hypertension ICD Codes: I10 - Hypertension Status: Chronic (2) Alcohol intoxication ICD Codes: F10.129 - Alcohol abuse with intoxication, unspecified Status: Acute (3) Chronic pancreatitis ICD Codes: K86.1 - Other chronic pancreatitis Status: Acute (4) Acute liver failure ICD Codes: K72.00 - Acute and subacute hepatic failure without coma Status: Acute (5) Hypokalemia ICD Codes: E87.6 - Hypokalemia Status: Acute (6) Hyponatremia ICD Codes: E87.1 - Hypo-osmolality and hyponatremia Status: Acute (7) Hypomagnesemia ICD Codes: E83.42 - Hypomagnesemia Status: Acute (8) Alcohol withdrawal ICD Codes: F10.239 - Alcohol withdrawal syndrome Status: Acute Plan Patient has history of alcoholism and Acute liver failure. Also has chronic pancreatitis. K is low, along with other electrolyte disorder. Most likely has electrolyte problem due to decrease oral intake, and also due to renal tubular damage. Continue aldactone Encourage oral intake Continue IVF will decrease Magnesium level low at 0.6 , Magnesium sulfate 2 grams ordered also on oral replacement Calcium level at 7.5 and trending downward, on oral replacement will give calcium gluconate X 1 today. Potassium at 3.2 on scheduled replacement and IVF will give extra today (Megha Del Cid) Plan Patient seen and examined, agree with above. Mg. is still low, and calcium is still low, continue replacement. (Merlin Vieira MD) Problem Qualifiers (1) Hypertension: Qualified Codes: I10 - Essential (primary) hypertension (2) Chronic pancreatitis: Qualified Codes: K86.0 - Alcohol-induced chronic pancreatitis (3) Acute liver failure: Qualified Codes: K72.00 - Acute and subacute hepatic failure without coma (4) Alcohol withdrawal: Qualified Codes: F10.230 - Alcohol dependence with withdrawal, uncomplicated Megha Del Cid November 16, 2017 09:00 Merlin Vieira MD November 19, 2017 19:20
[2017-11-16] MEDS ORDERED: POTASSIUM CHLORIDE 25 MEQ EFFERVESCENT TAB PO ONE (10:00)
[2017-11-16] MEDS ORDERED: CALCIUM GLUCONATE INJ 1 GM in DEXTROSE 5% IN WATER 100ML INJ 100 ML IV ONE ×2 (10:00)
[2017-11-16] MEDS: LIPASE/PROTEASE/AMYLASE (12,000/38,000/60,000) CAP PO SCH ×3 (10:03→17:30)
[2017-11-16] MEDS: METOPROLOL SUCCINATE 25 MG EXTENDED RELEASE TAB PO SCH (10:05)
[2017-11-16] MEDS: SPIRONOLACTONE 25 MG TAB PO SCH ×2 (10:05→17:30)
[2017-11-16] MEDS: RIFAXIMIN 550 MG TAB PO SCH ×2 (10:05→22:22)
[2017-11-16] MEDS: PARoxetine HCL 20 MG TAB PO SCH (10:06)
[2017-11-16] MEDS: PANTOPRAZOLE SOD 40 MG DELAYED RELEASE TAB PO SCH ×2 (10:06→22:22)
[2017-11-16] MEDS: POTASSIUM CHLORIDE 20 MEQ CONTROLLED RELEASE TAB PO SCH (10:06)
[2017-11-16] MEDS: CALCIUM CARBONATE 1.25 GM (CA 500 MG) TAB PO SCH ×2 (10:06→22:22)
[2017-11-16] MEDS: SODIUM CHLORIDE 0.9% FLUSH 10 ML FLUSH IV FLUSH SCH ×3 (10:14→21:00)
[2017-11-16] MEDS: THIAMINE HCL 100 MG TAB PO SCH (10:15)
[2017-11-16] MEDS: MAGNESIUM SULFATE 1 GM PREMIX 100 ML IV SCH ×2 (10:17→11:42)
[2017-11-16] MEDS: LACTULOSE SYRUP 20 GM/30 ML CUP PO SCH (10:19)
[2017-11-16] MEDS: LORazepam 1 MG TAB PO PRN (10:21)
[2017-11-16] MEDS: MAGNESIUM OXIDE 400 MG TAB PO SCH ×2 (11:46→23:57)
[2017-11-16 12:00] VITALS: BP 85/56; PULSE 71; RESP 18; TEMP 97.8; O2SAT 95
--- NOTE | 2017-11-16 15:23 | HHI.PR ---
Subjective Remarks Patient that he is feeling all right. Denies any chest pain shortness breath reports abdominal distention about the same as yesterday. Denies constipation Objective Vital Signs Date Time Temp Pulse Resp B/P (MAP) Pulse Ox O2 Delivery O2 Flow Rate FiO2 11/16/17 12:00 97.8 71 18 85/56 (66) 95 11/16/17 08:00 97.3 75 18 107/71 (83) 98 11/16/17 05:55 18 11/16/17 04:00 98.2 74 16 90/63 (72) 98 11/16/17 00:00 98.4 84 16 89/60 (70) 98 11/15/17 22:45 97.8 98 18 98/63 (75) 100 11/15/17 20:00 98.0 79 16 86/53 (64) 99 11/15/17 15:36 98.9 79 20 102/65 (77) 97 I/O 11/15/17 11/15/17 11/15/17 11/16/17 11/16/17 11/16/17 07:00 15:00 23:00 07:00 15:00 23:00 Intake Total 2947 ml 875 ml Output Total 1400 ml 500 ml Balance 1547 ml 875 ml -500 ml Intake Oral 600 ml IV Total 2347 ml 875 ml Output Urine Total 1400 ml 500 ml # Voids 6 Result Diagram: 11/16/1752411/16/17 05 Objective Remarks GENERAL: patient sleeping, wakes up for exam. Appears comfortable. No change on exam again SKIN: Warm and dry. HEAD: Normocephalic. EYES: No scleral icterus. No injection or drainage. NECK: Supple, trachea midline. No JVD. CARDIOVASCULAR: Regular rate and rhythm without murmurs, gallops, or rubs. RESPIRATORY: Breath sounds equal bilaterally. No accessory muscle use. GASTROINTESTINAL: Abdomen soft, non-tender, nondistended. MUSCULOSKELETAL: No cyanosis, or edema. BACK: Nontender without obvious deformity. No CVA tenderness. A/P Assessment and Plan //Acute liver failure related to the patient's continuing use of alcohol. Patient has been counseled extensively. Will avoid hepatotoxic agents. GI following and has cleared the patient for discharge; started on Lactulose and Rifaximin. will continue to monitor the liver function which is trending down. //Hyponatremia- improving. Likely combination of hypovolemic hyponatremia and chronic alcohol use. Hydrate with normal saline. sodium level has improved- continue to monitor. //persistent Hypokalemia/ hypomagnesemia and hypophosphatemia- continue to replace aggressively- will monitor the levels. started on Aldactone.will monitor the BP- nephrology following and appreciate recommendations =11/15. Replaced again and recheck tomorrow. Appreciate nephrology assistance. = 11/16. 3.2. Replaced again. Continue to monitor. Appreciate nephrology assistance. // Chronic pancreatitis continue with Creon. // Alcohol abuse Patient was extensively counseled about the detrimental effects of alcohol on his health. [facility] protocol to prevent withdrawal. //Diabetes Type 2 without complications //With DKA on admission Noncompliant with insulin therapy. Levemir 10 units nightly and sliding scale insulin with Accu-Cheks. Overall fair glycemic control = Really with chronic pancreatitis this is likely type 1 diabetes at this point. Hypoglycemic episodes in the 60s. Will decrease Levemir to 8 units daily. Recommend continuing on Levemir. Continue low-dose NovoLog sliding scale. //coagulopathy- improving. continue with vitamin K- monitor for bleeding. //Anemia. Worsening 8.8 hemoglobin today. Recheck tomorrow. Twice-daily PPI. Consult GI. //DVT prophylaxis no intra-coagulation due to liver disease, -bilateral SCDs Transfer out of intensive care unit. Discharge Planning Home when medically stable, home health care for nursing education follow-up if able to arrange. = Still requiring massive replacement of magnesium, potassium. PT consult ordered and pending Cesar Grullon MD November 16, 2017 15:23
[2017-11-16 16:00] VITALS: BP 83/52; PULSE 69; RESP 19; TEMP 97.8; O2SAT 98
[2017-11-16 20:00] VITALS: BP 83/53; PULSE 75; RESP 18; TEMP 97.4; O2SAT 99
[2017-11-16] MEDS ORDERED: INSULIN DETEMIR 100 UNITS/ML VIAL SQ SCH (21:00)
[2017-11-17] VITALS: BP 92/64; PULSE 80; RESP 18; TEMP 97.4; O2SAT 99
[2017-11-17] MEDS: NS + KCL 40 MEQ INJ 1,000 ML IV SCH ×2 (01:34→13:12)
[2017-11-17] MEDS: POTASSIUM PHOSPHATE/SODIUM PHOSPHATE 250 MG TAB PO SCH ×2 (05:29→13:15)
[2017-11-17 08:00] VITALS: BP 100/60; PULSE 67; RESP 18; TEMP 98.6; O2SAT 98
[2017-11-17] MEDS: INSULIN ASPART SUPPLEMENTAL SCALE SQ SCH ×3 (08:00→17:00)
[2017-11-17] MEDS: SODIUM CHLORIDE 0.9% FLUSH 10 ML FLUSH IV FLUSH SCH ×3 (09:00→21:00)
[2017-11-17 09:17] LABS: AUTOMATED NEUTROPHIL # 15.9 TH/MM3 (1.8-7.7); BASOPHIL # 0.2 TH/MM3 (0-0.2); BASOPHIL % 0.8 % (0.0-2.0); EOSINOPHIL # 0.1 TH/MM3 (0-0.4); EOSINOPHIL % 0.4 % (0.0-4.0); HEMATOCRIT 27.9 % (39.0-51.0); HEMOGLOBIN 9.6 GM/DL (13.0-17.0); LYMPH % 17.1 % (9.0-44.0); LYMPHOCYTE # 3.7 TH/MM3 (1.0-4.8); MEAN CELL VOLUME 97.8 FL (80.0-100.0); MEAN CORPUSCULAR HEMOGLOBIN 33.5 PG (27.0-34.0); MEAN CORPUSCULAR HGB CONC 34.2 % (32.0-36.0); MEAN PLATELET VOLUME 7.8 FL (7.0-11.0); MONO % 7.3 % (0.0-8.0); MONOCYTE # 1.6 TH/MM3 (0-0.9); NEUT % 74.4 % (16.0-70.0); PLATELET COUNT 495 TH/MM3 (150-450); RED BLOOD COUNT 2.85 MIL/MM3 (4.50-5.90); RED CELL DISTRIBUTION WIDTH 15.2 % (11.6-17.2); WHITE BLOOD COUNT 21.4 TH/MM3 (4.0-11.0)
[2017-11-17 09:38] LABS: ALBUMIN 1.6 GM/DL (3.4-5.0); BICARBONATE 24.5 MEQ/L (21.0-32.0); CREATININE 0.43 MG/DL (0.60-1.30); DIRECT BILIRUBIN ADULT 13.3 MG/DL (0.0-0.2); MAGNESIUM 0.8 MG/DL (1.5-2.5); PHOSPHORUS 2.9 MG/DL (2.5-4.9); TOTAL BILIRUBIN ADULT 16.3 MG/DL (0.2-1.0); TOTAL PROTEIN 4.8 GM/DL (6.4-8.2)
[2017-11-17 09:44] LABS: CALCIUM 6.8 MG/DL (8.5-10.1)
[2017-11-17] MEDS: THIAMINE HCL 100 MG TAB PO SCH (09:48)
[2017-11-17] MEDS: PARoxetine HCL 20 MG TAB PO SCH (09:48)
[2017-11-17] MEDS: LIPASE/PROTEASE/AMYLASE (12,000/38,000/60,000) CAP PO SCH ×3 (09:49→17:07)
[2017-11-17] MEDS: POTASSIUM CHLORIDE 20 MEQ CONTROLLED RELEASE TAB PO SCH (09:49)
[2017-11-17] MEDS: RIFAXIMIN 550 MG TAB PO SCH (09:49)
[2017-11-17] MEDS: SPIRONOLACTONE 25 MG TAB PO SCH ×2 (09:50→17:07)
[2017-11-17] MEDS: CALCIUM CARBONATE 1.25 GM (CA 500 MG) TAB PO SCH (09:50)
[2017-11-17] MEDS: METOPROLOL SUCCINATE 25 MG EXTENDED RELEASE TAB PO SCH (09:51)
[2017-11-17] MEDS: PANTOPRAZOLE SOD 40 MG DELAYED RELEASE TAB PO SCH (09:51)
[2017-11-17] MEDS: LACTULOSE SYRUP 20 GM/30 ML CUP PO SCH (09:52)
[2017-11-17] MEDS: MAGNESIUM OXIDE 400 MG TAB PO SCH (10:05)
[2017-11-17 10:13] LABS: BANDS 6 % (0-6); BASOPHILS 2 % (0-2); LYMPHOCYTES 12 % (9-44); MONOCYTES 10 % (0-8); NEUTROPHIL # MANUAL DIFF 16.3 TH/MM3 (1.8-7.7); POLYS (SEG NEUTROPHILS) 70 % (16-70)
[2017-11-17 10:14] LABS: POLYCHROMASIA 2.1 % (0.0-1.9); TARGET CELLS 1+ (NORMAL)
--- NOTE | 2017-11-17 11:04 | HHI.PR ---
Subjective Remarks She is seen and examined this morning. Critical labs this morning significant for potassium of 2.4 and a random glucose of 46. Blood glucose has since stabilized since this morning's BMP. Has had intermittent hypotension. Patient asymptomatic. Denies CP or SOB. Objective Vital Signs Date Time Temp Pulse Resp B/P (MAP) Pulse Ox O2 Delivery O2 Flow Rate FiO2 11/17/17 08:00 98.6 67 18 100/60 (73) 98 11/17/17 00:00 97.4 80 18 92/64 (73) 99 11/16/17 20:00 97.4 75 18 83/53 (63) 99 11/16/17 16:00 97.8 69 19 83/52 (62) 98 11/16/17 12:00 97.8 71 18 85/56 (66) 95 I/O 11/16/17 11/16/17 11/16/17 11/17/17 11/17/17 11/17/17 07:00 15:00 23:00 07:00 15:00 23:00 Intake Total 875 ml Output Total 1450 ml Balance 875 ml -1450 ml IV Total 875 ml Output Urine Total 1450 ml # Voids 6 4 # Bowel Movements 1 Result Diagram: 11/17/17 0846 11/17/17 0846 Imaging Last Impressions Central Venous Line 11/08/17 0000 Signed Impressions: Service Date/Time: October 11:47 - CONCLUSION: Uncomplicated line placement as above. Merlin Monteiro MD Abdomen/Pelvis CT 11/06/17 1137 Signed Impressions: Service Date/Time: Monday, November 06, 2017 14:50 - CONCLUSION: 1. Findings of chronic pancreatitis with calcifications in the head and uncinate process, dilation of the pancreatic duct and marked atrophy of the mid body and tail. 2. Diffuse hepatic fatty infiltration. No focal mass lesions. 3. Findings of portal hypertension with a portosystemic shunt emanating from the origin of the portal vein and draining into the left renal vein. 4. Cholelithiasis Merlin Monteiro MD Objective Remarks GENERAL: Well-appearing, no acute distress SKIN: Warm and dry. HEAD: Normocephalic. EYES: No scleral icterus. No injection or drainage. NECK: Supple, trachea midline. No JVD or lymphadenopathy. CARDIOVASCULAR: Regular rate and rhythm without murmurs, gallops, or rubs. RESPIRATORY: Breath sounds equal bilaterally. No accessory muscle use. GASTROINTESTINAL: Abdomen soft, non-tender, nondistended. MUSCULOSKELETAL: No cyanosis, or edema. A/P Problem List: (1) Pancreatitis ICD Code: K85.9 - Pancreatitis Status: Acute (2) Chronic pancreatitis ICD Code: K86.1 - Other chronic pancreatitis Status: Acute (3) Alcohol withdrawal ICD Code: F10.239 - Alcohol withdrawal syndrome Status: Acute (4) Diabetes ICD Code: E11.9 - Type 2 diabetes mellitus without complications (5) Hypomagnesemia ICD Code: E83.42 - Hypomagnesemia Status: Acute (6) Hyponatremia ICD Code: E87.1 - Hypo-osmolality and hyponatremia Status: Acute (7) Hypokalemia ICD Code: E87.6 - Hypokalemia Status: Acute (8) Acute liver failure ICD Code: K72.00 - Acute and subacute hepatic failure without coma Status: Acute (9) Diabetes 1.5, 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 This has stabilized but has continued to have electrolyte abnormalities. Repeat BMP this afternoon. Acute liver failure -GI has seen evaluated the patient. Started patient on lactulose and rifaximin. They have cleared the patient for discharge - Patient also on spironolactone 25 mg BID, due to hypotension will decrease the dose to 12.5 mg BID Hyponatremia -Resolved Leukocytosis - has been elevated throughout admission, increased today - no fever, vitals overall stable Hypokalemia -Patient continuing to require significant replacement with both IV and p.o. potassium. Magnesium is also been replaced. -Urology was consulted for the patient's electrolyte abnormalities, electrolyte problems likely related to decreased p.o. intake and also renal tubular damage. They have titrated IV fluids, mag sulfate 2 g ordered, calcium gluconate was given, potassium replacement scheduled. Hypo-magnesium -Continue to replace with 800 Mag-Ox twice daily Chronic pancreatitis -continue Creon Alcohol abuse -[facility] protocol -Patient has been counseled diabetes type 2 DKA on admission -Patient was on Levemir 8 units at bedtime, the patient has been having hypoglycemia. I have held the patient's basal insulin and he can use a sliding scale as indicated. Discharge Planning Patient cleared for discharge once electrolytes have been stable. Problem Qualifiers (1) Chronic pancreatitis: Qualified Codes: K86.0 - Alcohol-induced chronic pancreatitis (2) Alcohol withdrawal: Qualified Codes: F10.230 - Alcohol dependence with withdrawal, uncomplicated (3) Acute liver failure: Qualified Codes: K72.00 - Acute and subacute hepatic failure without coma Misti Castro MD November 17, 2017 11:04
[2017-11-17 12:00] VITALS: BP 81/52; PULSE 68; RESP 16; TEMP 97.9; O2SAT 98
--- NOTE | 2017-11-17 12:13 | MB ---
cc: Mahin Mi MD DATE: 11/17/2017 HISTORY OF PRESENT ILLNESS: The patient is a 42-year-old gentleman I was asked to see again (he was seen earlier this admission by my partner) for a drop in blood count. The patient has a history of end-stage liver disease with cirrhosis secondary to alcohol abuse. He stopped drinking 2-1/2 weeks ago. He has hepatic encephalopathy with portal hypertension. His hemoglobin has gradually dropped since being in the hospital. He denies passage of melena. He has vomited food material, but never any blood or coffee-ground appearing material. He has had some mild abdominal discomfort, but no significant pain of any sort. The discomfort tends to migrate. PAST MEDICAL HISTORY: Significant for chronic pancreatitis, alcohol dependence, diabetes, depression. PAST SURGICAL HISTORY: Tonsillectomy. SOCIAL HISTORY: He smokes a pack a day and drinks alcohol heavily. MEDICINES ON ADMISSION: 1. Paroxetine. 2. Metoprolol. 3. Insulin. 4. Magnesium. 5. He was supposed to be taking lactulose and Xifaxan, but had not been. Here in the hospital is takin. Pantoprazole 40 mg p.o. b.i.d. 2. Levemir injections. 3. Magnesium sulfate. 4. Calcium carbonate. 5. Potassium chloride. 6. Magnesium oxide. 7. Aldactone 25 mg twice a day. 8. Oxycodone p.r.n. 9. Metoprolol 25 mg daily. 10. Lactulose 30 mg daily. 11. Lorazepam. ALLERGIES: NONE KNOWN TO MEDICATIONS. PHYSICAL EXAMINATION: GENERAL: He is alert, but a little bit confused. HEENT: He is icteric. Extraocular motions are intact. LYMPHATICS: I appreciate no submandibular, cervical, supraclavicular, axillary or epitrochlear adenopathy. LUNGS: Clear. HEART: Regular rate and rhythm with a I/ murmur. ABDOMEN: Good bowel sounds. No appreciable bruit. The abdomen is soft with no focal tenderness. No masses palpable. EXTREMITIES: No pedal edema, Dupuytren contractures, palmar erythema, caput medusae or spider angiomata. RECTAL EXAM: Good sphincter tone. No masses, no tenderness and light brown pale colored stool. LABORATORY STUDIES: On 11/06/2017, his white count was 18.1, it is currently 21.4. Hemoglobin was 11.6, had dropped down to 8.8 yesterday, is 9.6 today. Platelet count was 208, is up to 495 today. INR was 1.3 on 11/08/2017. Today, sodium is 139, potassium 2.4, BUN 4, creatinine 0.43, glucose 46, calcium 6.8, magnesium 0.8. Bilirubin 16.3 with a direct bilirubin of 13.3, AST 71, ALT 19, alkaline phosphatase 197, albumin 1.6. IMAGING STUDIES: CT scan abdomen and pelvis from 11/06/2017 revealed chronic pancreatitis with calcifications in the head and uncinate process with dilation of the pancreatic duct and marked atrophy of the mid body and tail. Diffuse hepatic fatty infiltration. No focal mass lesions. Portal hypertension evident with a portosystemic shunt emanating from the origin of the portal vein and draining to the left renal vein. Cholelithiasis is noted. IMPRESSION AND RECOMMENDATIONS: 1. Anemia with no evidence of gastrointestinal bleeding. Some of this may be dilutional. There is no urgent need for any endoscopic studies at this time. 2. Hepatic encephalopathy. Lactulose has been started. Xifaxan could be considered at 550 mg b.i.d. 3. End-stage liver disease due to cirrhosis. The metoprolol will not help his portal hypertension. Consideration shall be given to changing this to propranolol or nadolol. 4. I discussed with the patient and with his father the severity of the disease. I explained to them that unless he stops drinking alcohol, this disease will be fatal in the near future. If he is able to abstain from alcohol for 6 months, consideration could be given to liver transplant evaluation. I will check a cortisol level, given his low blood pressure and his electrolyte disturbances as well as his glucose problem. MD MARK Gallegos/HARRISON , 11:22 AM , 12:11 PM
[2017-11-17] MEDS ORDERED: PILL SPLITTER OTHER PRN (14:00)
[2017-11-17 15:09] LABS: BICARBONATE 29.8 MEQ/L (21.0-32.0); CALCIUM 6.9 MG/DL (8.5-10.1); CREATININE 0.5 MG/DL (0.60-1.30)
[2017-11-17 15:23] LABS: CALCIUM-PROTEIN CORRECTED 8.1 MG/DL (8.5-10.1); TOTAL PROTEIN 4.8 GM/DL (6.4-8.2)
[2017-11-17 16:00] VITALS: BP 96/60; PULSE 75; RESP 18; TEMP 98; O2SAT 100
--- NOTE | 2017-11-17 16:55 | HHI.NPPN ---
Subjective History of Present Illness 42-year-old male with a past medical history of chronic alcoholism and chronic liver disease, history of pancreatitis, diabetes mellitus, depression, who was admitted with nausea, vomiting and epigastric pain. I was called to see the patient because of low potassium and electrolyte disorder. The patient has history of hypokalemia in the past and his potassium has been low in the past. Additional Remarks no acute complaints Objective Data Data 11/17/17 11/18/17 18:59 06:59 Output Total 900 ml Balance -900 ml Output Urine Total 900 ml Vital Signs Date Time Temp Pulse Resp B/P (MAP) Pulse Ox O2 Delivery O2 Flow Rate FiO2 11/17/17 12:00 97.9 68 16 81/52 (62) 98 11/17/17 08:00 98.6 67 18 100/60 (73) 98 11/17/17 00:00 97.4 80 18 92/64 (73) 99 11/16/17 20:00 97.4 75 18 83/53 (63) 99 -: 11/17/17 0846 11/17/17 1338 Physical Exam General Appearance: No Acute Distress, Comfortable Eyes Eye Exam: Pupils Equal Throat Throat Exam: Oral Mucosa [place] & Moist Neck Neck Exam: Neck Supple Pulmonary Resp Exam: Breath Sounds Equal, No Distress Cardiology CV Exam: Regular, Normal Sinus Rhythm Gastrointestinal/Abdomen GI Exam: Soft, Non-Tender, Bowel Sounds Present Extremeties Extremities Exam: Trace Edema Neurologic Neuro Exam: Alert, Awake Psychiatric Psych Exam: Appropriate Responses Assessment/Plan Electrolyte Assessment: Hypokalemia Problem List: (1) Hypertension ICD Codes: I10 - Hypertension Status: Chronic (2) Alcohol intoxication ICD Codes: F10.129 - Alcohol abuse with intoxication, unspecified Status: Acute (3) Chronic pancreatitis ICD Codes: K86.1 - Other chronic pancreatitis Status: Acute (4) Acute liver failure ICD Codes: K72.00 - Acute and subacute hepatic failure without coma Status: Acute (5) Hypokalemia ICD Codes: E87.6 - Hypokalemia Status: Acute (6) Hyponatremia ICD Codes: E87.1 - Hypo-osmolality and hyponatremia Status: Acute (7) Hypomagnesemia ICD Codes: E83.42 - Hypomagnesemia Status: Acute (8) Alcohol withdrawal ICD Codes: F10.239 - Alcohol withdrawal syndrome Status: Acute Plan Patient has history of alcoholism and Acute liver failure. Also has chronic pancreatitis. K is low, along with other electrolyte disorder. Most likely has electrolyte problem due to decrease oral intake, and also due to renal tubular damage. Continue aldactone (dose was decreased due to hypotension concerns). Asymptomatic Encourage oral intake Continue IVFs with potassium. Magnesium and calcium previously replaced - continue to monitor. K+ replaced earlier, continue to monitor. K+ replacement protocol Problem Qualifiers (1) Hypertension: Qualified Codes: I10 - Essential (primary) hypertension (2) Chronic pancreatitis: Qualified Codes: K86.0 - Alcohol-induced chronic pancreatitis (3) Acute liver failure: Qualified Codes: K72.00 - Acute and subacute hepatic failure without coma (4) Alcohol withdrawal: Qualified Codes: F10.230 - Alcohol dependence with withdrawal, uncomplicated Fernando Ruth MD November 17, 2017 16:55
[2017-11-17] MEDS ORDERED: POTASSIUM CHLOR 20 MEQ PREMIX 100 ML IV SCH (17:15)
[2017-11-17] MEDS ORDERED: POTASSIUM CHLOR 40 MEQ PREMIX 100 ML IV ONE (17:15)
[2017-11-17] MEDS ORDERED: POTASSIUM CHLOR 20 MEQ PREMIX 100 ML IV ONE (17:15)
[2017-11-17] MEDS ORDERED: POTASSIUM CHLOR 10 MEQ PREMIX 100 ML IV SCH (17:15)
[2017-11-17] MEDS ORDERED: POTASSIUM CHLOR 10 MEQ PREMIX 100 ML IV ONE (17:15)
[2017-11-17] MEDS ORDERED: POTASSIUM CHLOR 40 MEQ PREMIX 100 ML IV SCH (17:15)
[2017-11-17] MEDS ORDERED: POTASSIUM CHLORIDE INJ 30 MEQ in SODIUM CHLORIDE 0.9% INJ 100 ML IV SCH (18:15)
[2017-11-17] MEDS ORDERED: POTASSIUM CHLORIDE INJ 30 MEQ in SODIUM CHLORIDE 0.9% INJ 100 ML IV ONE (18:15)
[2017-11-17] MEDS: POTASSIUM CHLOR 20 MEQ PREMIX 100 ML IV SCH ×2 (18:48→20:00)
[2017-11-17 20:45] VITALS: BP 90/56; PULSE 75; RESP 16; TEMP 98.7; O2SAT 98
[2017-11-18 00:30] VITALS: BP 88/58; PULSE 71; RESP 17; TEMP 98.7; O2SAT 98
[2017-11-18] MEDS: POTASSIUM PHOSPHATE/SODIUM PHOSPHATE 250 MG TAB PO SCH ×4 (00:58→22:08)
[2017-11-18] MEDS: PANTOPRAZOLE SOD 40 MG DELAYED RELEASE TAB PO SCH ×3 (00:58→22:09)
[2017-11-18] MEDS: CALCIUM CARBONATE 1.25 GM (CA 500 MG) TAB PO SCH ×3 (00:58→22:09)
[2017-11-18] MEDS: RIFAXIMIN 550 MG TAB PO SCH ×3 (00:58→22:11)
[2017-11-18] MEDS: INSULIN ASPART SUPPLEMENTAL SCALE SQ SCH ×5 (01:00→21:00)
[2017-11-18] MEDS: MAGNESIUM OXIDE 400 MG TAB PO SCH ×4 (03:28→22:10)
[2017-11-18] MEDS: NS + KCL 40 MEQ INJ 1,000 ML IV SCH ×2 (03:30→15:38)
[2017-11-18 04:00] VITALS: BP 89/59; PULSE 69; RESP 19; TEMP 97.9; O2SAT 99
[2017-11-18 04:13] LABS: BICARBONATE 28.5 MEQ/L (21.0-32.0); CALCIUM 6.9 MG/DL (8.5-10.1); CREATININE 0.66 MG/DL (0.60-1.30)
[2017-11-18 04:39] LABS: CALCIUM-PROTEIN CORRECTED 8.2 MG/DL (8.5-10.1); TOTAL PROTEIN 4.7 GM/DL (6.4-8.2)
[2017-11-18] MEDS ORDERED: POTASSIUM CHLORIDE 25 MEQ EFFERVESCENT TAB PO ONE (04:45)
[2017-11-18] MEDS: MAGNESIUM SULFATE 1 GM PREMIX 100 ML IV SCH ×2 (06:36→07:29)
[2017-11-18] MEDS: LIPASE/PROTEASE/AMYLASE (12,000/38,000/60,000) CAP PO SCH ×3 (07:33→17:08)
[2017-11-18] MEDS: POTASSIUM CHLORIDE 20 MEQ CONTROLLED RELEASE TAB PO SCH (07:37)
[2017-11-18] MEDS: LACTULOSE SYRUP 20 GM/30 ML CUP PO SCH (07:37)
[2017-11-18] MEDS: SPIRONOLACTONE 25 MG TAB PO SCH ×2 (07:38→17:08)
[2017-11-18] MEDS: SODIUM CHLORIDE 0.9% FLUSH 10 ML FLUSH IV FLUSH SCH ×3 (07:39→21:00)
[2017-11-18] MEDS: THIAMINE HCL 100 MG TAB PO SCH (07:39)
[2017-11-18] MEDS: PARoxetine HCL 20 MG TAB PO SCH (07:40)
[2017-11-18 08:00] VITALS: BP 88/49; PULSE 79; RESP 18; TEMP 98.4; O2SAT 92
[2017-11-18 08:18] LABS: AUTOMATED NEUTROPHIL # 11.9 TH/MM3 (1.8-7.7); EOSINOPHIL # 0.1 TH/MM3 (0-0.4); EOSINOPHIL % 0.6 % (0.0-4.0); HEMOGLOBIN 9.7 GM/DL (13.0-17.0); LYMPH % 19.2 % (9.0-44.0); LYMPHOCYTE # 3.1 TH/MM3 (1.0-4.8); MEAN CELL VOLUME 99.4 FL (80.0-100.0); MEAN CORPUSCULAR HEMOGLOBIN 33.1 PG (27.0-34.0); MEAN CORPUSCULAR HGB CONC 33.3 % (32.0-36.0); MEAN PLATELET VOLUME 8.3 FL (7.0-11.0); MONO % 6.5 % (0.0-8.0); MONOCYTE # 1.1 TH/MM3 (0-0.9); NEUT % 73.7 % (16.0-70.0); PLATELET COUNT 478 TH/MM3 (150-450); RED BLOOD COUNT 2.92 MIL/MM3 (4.50-5.90); RED CELL DISTRIBUTION WIDTH 14.9 % (11.6-17.2); WHITE BLOOD COUNT 16.2 TH/MM3 (4.0-11.0)
--- NOTE | 2017-11-18 09:05 | HHI.PR ---
Subjective Remarks Patient is seen and examined this morning. Potassium improved yesterday afternoon, but is again low this am. Hypotension this am. Asymptomatic. No complaints or concerns this am. Denies CP or SOB. Objective Vital Signs Date Time Temp Pulse Resp B/P (MAP) Pulse Ox O2 Delivery O2 Flow Rate FiO2 11/18/17 08:00 98.4 79 18 88/49 (62) 92 11/18/17 04:00 97.9 69 19 89/59 (69) 99 11/18/17 00:30 98.7 71 17 88/58 (68) 98 11/17/17 20:45 98.7 75 16 90/56 (67) 98 11/17/17 16:00 98.0 75 18 96/60 (72) 100 11/17/17 12:00 97.9 68 16 81/52 (62) 98 I/O 11/17/17 11/17/17 11/17/17 11/18/17 11/18/17 11/18/17 07:00 15:00 23:00 07:00 15:00 23:00 Intake Total 700 ml 500 ml Output Total 900 ml 400 ml Balance -900 ml 300 ml 500 ml Intake Oral 700 ml 500 ml Output Urine Total 900 ml 400 ml # Voids 4 1 3 # Bowel Movements 0 0 Result Diagram: 11/18/17 0317 11/18/17 0317 Imaging Last Impressions Central Venous Line 11/08/17 0000 Signed Impressions: Service Date/Time: October 11:47 - CONCLUSION: Uncomplicated line placement as above. Merlin Monteiro MD Abdomen/Pelvis CT 11/06/17 1137 Signed Impressions: Service Date/Time: Monday, November 06, 2017 14:50 - CONCLUSION: 1. Findings of chronic pancreatitis with calcifications in the head and uncinate process, dilation of the pancreatic duct and marked atrophy of the mid body and tail. 2. Diffuse hepatic fatty infiltration. No focal mass lesions. 3. Findings of portal hypertension with a portosystemic shunt emanating from the origin of the portal vein and draining into the left renal vein. 4. Cholelithiasis Merlin Monteiro MD Objective Remarks GENERAL: Well-appearing, no acute distress SKIN: Warm and dry. HEAD: Normocephalic. EYES: No scleral icterus. No injection or drainage. NECK: Supple, trachea midline. No JVD or lymphadenopathy. CARDIOVASCULAR: Regular rate and rhythm without murmurs, gallops, or rubs. RESPIRATORY: Breath sounds equal bilaterally. No accessory muscle use. GASTROINTESTINAL: Abdomen soft, non-tender, nondistended. MUSCULOSKELETAL: No cyanosis, or edema. A/P Problem List: (1) Pancreatitis ICD Code: K85.9 - Pancreatitis Status: Acute (2) Chronic pancreatitis ICD Code: K86.1 - Other chronic pancreatitis Status: Acute (3) Alcohol withdrawal ICD Code: F10.239 - Alcohol withdrawal syndrome Status: Acute (4) Diabetes ICD Code: E11.9 - Type 2 diabetes mellitus without complications (5) Hypomagnesemia ICD Code: E83.42 - Hypomagnesemia Status: Acute (6) Hyponatremia ICD Code: E87.1 - Hypo-osmolality and hyponatremia Status: Acute (7) Hypokalemia ICD Code: E87.6 - Hypokalemia Status: Acute (8) Acute liver failure ICD Code: K72.00 - Acute and subacute hepatic failure without coma Status: Acute (9) Diabetes 1.5, 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 This has stabilized but has continued to have electrolyte abnormalities. Acute liver failure -GI has seen evaluated the patient. Started patient on lactulose and rifaximin. They have cleared the patient for discharge - Patient also on spironolactone 25 mg BID, due to hypotension decreased the dose to 12.5 mg BID Hyponatremia -Resolved Leukocytosis - has been elevated throughout admission, downtrending today - no fever, vitals overall stable Hypokalemia -Patient continuing to require significant replacement with both IV and p.o. potassium. Magnesium is also been replaced. -Nephrology was consulted for the patient's electrolyte abnormalities, electrolyte problems likely related to decreased p.o. intake and also renal tubular damage. They have titrated IV fluids, mag sulfate 2 g ordered, calcium gluconate was given, potassium replacement scheduled. Hypo-magnesium -Continue to replace with 800 Mag-Ox twice daily Chronic pancreatitis -continue Creon Alcohol abuse -[facility] protocol -Patient has been counseled diabetes, unclear if type 1 or 2 DKA on admission -Patient was on Levemir 8 units at bedtime, the patient has been having hypoglycemia. I have held the patient's basal insulin since 11/17 and he can use a sliding scale as clinically indicated. Hypertension - continues to have hypotension, home metoprolol is being held Discharge Planning Patient cleared for discharge once electrolytes have been stable. Problem Qualifiers (1) Chronic pancreatitis: Qualified Codes: K86.0 - Alcohol-induced chronic pancreatitis (2) Alcohol withdrawal: Qualified Codes: F10.230 - Alcohol dependence with withdrawal, uncomplicated (3) Acute liver failure: Qualified Codes: K72.00 - Acute and subacute hepatic failure without coma Misti Castro MD November 18, 2017 09:05
--- NOTE | 2017-11-18 09:06 | HHI.GIFU ---
GI Follow-up Note Consult Follow-up Subjective: Patient laying in bed comfortably, no new complaints except difficulty sleeping; he's passed yellow stool. No N/V. Objective: PHYSICAL EXAMINATION: Vitals signs stable No fever HEENT: EOMI Available Data (labs, X- Rays, Procedues) : Hgb up to 9.7. Cortisol is appropriately elevated. ASSESSMENT/PLAN: Anemia with no evidence of GI bleeding. Hgb has stabilized. Alcohol-induced cirrhosis; I have nothing further to add. Propranolol or Nadolol would be more appropriate than metoprolol. He may follow up with Dr. Aracelis Ruth after discharge. It was a pleasure seeing Omar Mo Jr. Entered by: Mahin Duong MD November 18, 2017 09:06
[2017-11-18 12:00] VITALS: BP 88/51; PULSE 84; RESP 18; TEMP 98.3; O2SAT 97
--- NOTE | 2017-11-18 13:59 | HHI.NPPN ---
Subjective History of Present Illness 42-year-old male with a past medical history of chronic alcoholism and chronic liver disease, history of pancreatitis, diabetes mellitus, depression, who was admitted with nausea, vomiting and epigastric pain. I was called to see the patient because of low potassium and electrolyte disorder. The patient has history of hypokalemia in the past and his potassium has been low in the past. Additional Remarks no acute complaints Objective Data Data Vital Signs Date Time Temp Pulse Resp B/P (MAP) Pulse Ox O2 Delivery O2 Flow Rate FiO2 11/18/17 12:00 98.3 84 18 88/51 (63) 97 11/18/17 08:00 98.4 79 18 88/49 (62) 92 11/18/17 04:00 97.9 69 19 89/59 (69) 99 11/18/17 00:30 98.7 71 17 88/58 (68) 98 11/17/17 20:45 98.7 75 16 90/56 (67) 98 11/17/17 16:00 98.0 75 18 96/60 (72) 100 -: 11/18/17 0317 11/18/17 0317 Physical Exam General Appearance: No Acute Distress, Comfortable Eyes Eye Exam: Pupils Equal Throat Throat Exam: Oral Mucosa [place] & Moist Neck Neck Exam: Neck Supple Pulmonary Resp Exam: Breath Sounds Equal, No Distress Cardiology CV Exam: Regular, Normal Sinus Rhythm Gastrointestinal/Abdomen GI Exam: Soft, Non-Tender, Bowel Sounds Present Extremeties Extremities Exam: Trace Edema Neurologic Neuro Exam: Alert, Awake Psychiatric Psych Exam: Appropriate Responses Assessment/Plan Electrolyte Assessment: Hypokalemia Problem List: (1) Hypertension ICD Codes: I10 - Hypertension Status: Chronic (2) Alcohol intoxication ICD Codes: F10.129 - Alcohol abuse with intoxication, unspecified Status: Acute (3) Chronic pancreatitis ICD Codes: K86.1 - Other chronic pancreatitis Status: Acute (4) Acute liver failure ICD Codes: K72.00 - Acute and subacute hepatic failure without coma Status: Acute (5) Hypokalemia ICD Codes: E87.6 - Hypokalemia Status: Acute (6) Hyponatremia ICD Codes: E87.1 - Hypo-osmolality and hyponatremia Status: Acute (7) Hypomagnesemia ICD Codes: E83.42 - Hypomagnesemia Status: Acute (8) Alcohol withdrawal ICD Codes: F10.239 - Alcohol withdrawal syndrome Status: Acute Plan Patient has history of alcoholism and Acute liver failure. Also has chronic pancreatitis. K is low, along with other electrolyte disorder. Most likely has electrolyte problem due to decrease oral intake, and also due to renal tubular damage. Continue aldactone (dose was decreased due to hypotension concerns). Asymptomatic Encourage oral intake Continue IVFs with potassium. Magnesium replacement ordered today Will add daily PO Mg, increase daily PO KCL to 40meq daily. K+ replaced earlier, continue to monitor. Unable to do K+ replacement protocol on medical floor - continue to replace as needed. Problem Qualifiers (1) Hypertension: Qualified Codes: I10 - Essential (primary) hypertension (2) Chronic pancreatitis: Qualified Codes: K86.0 - Alcohol-induced chronic pancreatitis (3) Acute liver failure: Qualified Codes: K72.00 - Acute and subacute hepatic failure without coma (4) Alcohol withdrawal: Qualified Codes: F10.230 - Alcohol dependence with withdrawal, uncomplicated Fernando Ruth MD November 18, 2017 13:59
[2017-11-18 16:00] VITALS: BP 81/52; PULSE 71; RESP 18; TEMP 98; O2SAT 98
[2017-11-18 21:00] VITALS: BP 84/50; PULSE 70; RESP 16; TEMP 98.9; O2SAT 98
[2017-11-18] MEDS: MELATONIN 5 MG TAB PO PRN (22:10)
[2017-11-19] VITALS (7 sets, daily range): BP systolic 89–107; BP diastolic 50–67; PULSE 67–78; RESP 16–20; TEMP 97.3–98.9; O2SAT 98–100
[2017-11-19] MEDS: MAGNESIUM OXIDE 400 MG TAB PO SCH ×6 (00:15→21:54)
[2017-11-19] MEDS: NS + KCL 40 MEQ INJ 1,000 ML IV SCH ×2 (06:00→11:11)
[2017-11-19] MEDS: POTASSIUM PHOSPHATE/SODIUM PHOSPHATE 250 MG TAB PO SCH ×3 (06:00→21:54)
[2017-11-19] MEDS: INSULIN ASPART SUPPLEMENTAL SCALE SQ SCH ×4 (07:52→21:55)
[2017-11-19] MEDS: SODIUM CHLORIDE 0.9% FLUSH 10 ML FLUSH IV FLUSH SCH ×3 (07:52→21:00)
[2017-11-19] MEDS: SPIRONOLACTONE 25 MG TAB PO SCH ×2 (07:53→16:13)
[2017-11-19] MEDS: THIAMINE HCL 100 MG TAB PO SCH (07:54)
[2017-11-19] MEDS: POTASSIUM CHLORIDE 20 MEQ CONTROLLED RELEASE TAB PO SCH (07:54)
[2017-11-19] MEDS: RIFAXIMIN 550 MG TAB PO SCH ×2 (07:55→21:53)
[2017-11-19] MEDS: LACTULOSE SYRUP 20 GM/30 ML CUP PO SCH (07:55)
[2017-11-19] MEDS: CALCIUM CARBONATE 1.25 GM (CA 500 MG) TAB PO SCH ×2 (07:55→21:54)
[2017-11-19] MEDS: LIPASE/PROTEASE/AMYLASE (12,000/38,000/60,000) CAP PO SCH ×3 (07:55→17:12)
[2017-11-19] MEDS: PARoxetine HCL 20 MG TAB PO SCH (07:55)
[2017-11-19] MEDS: PANTOPRAZOLE SOD 40 MG DELAYED RELEASE TAB PO SCH ×2 (07:55→21:54)
[2017-11-19 08:28] LABS: AUTOMATED NEUTROPHIL # 13.2 TH/MM3 (1.8-7.7); BASOPHIL # 0.2 TH/MM3 (0-0.2); BASOPHIL % 1.2 % (0.0-2.0); EOSINOPHIL # 0.1 TH/MM3 (0-0.4); EOSINOPHIL % 0.5 % (0.0-4.0); HEMATOCRIT 31.6 % (39.0-51.0); HEMOGLOBIN 10.8 GM/DL (13.0-17.0); LYMPH % 22.6 % (9.0-44.0); LYMPHOCYTE # 4.3 TH/MM3 (1.0-4.8); MEAN CELL VOLUME 99.2 FL (80.0-100.0); MEAN CORPUSCULAR HEMOGLOBIN 33.9 PG (27.0-34.0); MEAN CORPUSCULAR HGB CONC 34.2 % (32.0-36.0); MEAN PLATELET VOLUME 8.4 FL (7.0-11.0); MONO % 6.2 % (0.0-8.0); MONOCYTE # 1.2 TH/MM3 (0-0.9); NEUT % 69.5 % (16.0-70.0); PLATELET COUNT 480 TH/MM3 (150-450); RED BLOOD COUNT 3.19 MIL/MM3 (4.50-5.90); RED CELL DISTRIBUTION WIDTH 14.9 % (11.6-17.2); WHITE BLOOD COUNT 18.9 TH/MM3 (4.0-11.0)
[2017-11-19 08:51] LABS: BICARBONATE 25.3 MEQ/L (21.0-32.0); CALCIUM 7.2 MG/DL (8.5-10.1); CREATININE 0.58 MG/DL (0.60-1.30); MAGNESIUM 1.2 MG/DL (1.5-2.5)
[2017-11-19 09:14] LABS: CALCIUM-PROTEIN CORRECTED 8.3 MG/DL (8.5-10.1); TOTAL PROTEIN 5.1 GM/DL (6.4-8.2)
[2017-11-19] MEDS ORDERED: LORazepam 0.5 MG TAB PO ONE (11:00)
--- NOTE | 2017-11-19 12:13 | HHI.PR ---
Subjective Remarks Is still having loose stools and low potassium magnesium. Objective Vitals Vital Signs Date Time Temp Pulse Resp B/P (MAP) Pulse Ox O2 Delivery O2 Flow Rate FiO2 11/19/17 11:52 97.5 78 20 92/50 (64) 100 11/19/17 08:29 97.9 74 20 90/53 (65) 98 11/19/17 05:00 98.2 72 16 94/58 (70) 98 11/19/17 00:45 98.9 67 16 89/52 (64) 99 11/18/17 21:00 98.9 70 16 84/50 (61) 98 11/18/17 16:00 98.0 71 18 81/52 (62) 98 I/O 11/18/17 11/18/17 11/18/17 11/19/17 11/19/17 11/19/17 07:00 15:00 23:00 07:00 15:00 23:00 Intake Total 500 ml 450 ml 900 ml Output Total 100 ml 600 ml 200 ml Balance 500 ml 350 ml 300 ml -200 ml Intake Oral 500 ml 450 ml 900 ml Output Urine Total 100 ml 600 ml 200 ml # Voids 3 # Bowel Movements 0 0 0 Result Diagram: 11/19/1746 11/19/17745 Objective Remarks GENERAL: This is a well-nourished, well-developed jaundice patient, in no apparent distress. CARDIOVASCULAR: Regular rate and rhythm RESPIRATORY: Clear to auscultation. Breath sounds equal bilaterally. No wheezes , rales, or rhonchi. GASTROINTESTINAL: Abdomen soft, mild epigastric tenderness, with no rebound or guarding. Nondistended. Normal active bowel sounds MUSCULOSKELETAL: Extremities without clubbing, cyanosis, or edema. NEURO: Alert & Oriented x4 to person, place, time, situation. Moves all ext x4 Procedures central line placement. A/P Problem List: (1) Acute liver failure ICD Code: K72.00 - Acute and subacute hepatic failure without coma Status: Acute (2) Hyponatremia ICD Code: E87.1 - Hypo-osmolality and hyponatremia Status: Acute (3) Hypokalemia ICD Code: E87.6 - Hypokalemia Status: Acute (4) Chronic pancreatitis ICD Code: K86.1 - Other chronic pancreatitis Status: Acute (5) Alcohol abuse ICD Code: F10.10 - Alcohol abuse Status: Chronic (6) Hypomagnesemia ICD Code: E83.42 - Hypomagnesemia Status: Acute (7) Diabetes ICD Code: E11.9 - Type 2 diabetes mellitus without complications (8) Elevated LFTs ICD Code: R79.89 - Other specified abnormal findings of blood chemistry (9) Hyperammonemia ICD Code: E72.20 - Disorder of urea cycle metabolism, unspecified Assessment and Plan (1) Acute liver failure related to the patient's continuing use of alcohol. Patient has been counseled extensively. Will avoid hepatotoxic agents. GI following and has cleared the patient for discharge; started on Lactulose and Rifaximin. will continue to monitor the liver function which is trending down. Decrease lactulose to 15 ml (2) Hyponatremia- improving. Likely combination of hypovolemic hyponatremia and chronic alcohol use. Hydrate with normal saline. sodium level has improved- continue to monitor. (3)persistent Hypokalemia/ hypomagnesemia and hypophosphatemia- continue to replace aggressively- will monitor the levels. started on Aldactone.will monitor the BP-consider increasing to 25 twice daily as tolerated nephrology following and appreciate recommendations (4) Chronic pancreatitis continue with Creon. (5) Alcohol abuse Patient was extensively counseled about the detrimental effects of alcohol on his health. [facility] protocol to prevent withdrawal. (6) Diabetes mellitus unclear if type 1 vs 2 without complications Noncompliant with insulin therapy. Restart Levemir at 5 units nightly and sliding scale insulin with Accu-Cheks. Overall fair glycemic control (7) coagulopathy- improving. continue with vitamin K- monitor for bleeding. 8) DVT prophylaxis no intra-coagulation due to liver disease, -bilateral SCDs Discharge Planning Home when medically stable, home health care for nursing education follow-up if able to arrange Problem Qualifiers (1) Acute liver failure: Qualified Codes: K72.00 - Acute and subacute hepatic failure without coma (2) Chronic pancreatitis: Qualified Codes: K86.0 - Alcohol-induced chronic pancreatitis Justine River MD November 19, 2017 12:13
[2017-11-19] MEDS ORDERED: MAGNESIUM SULFATE 1 GM PREMIX 100 ML IV ONE (12:15)
[2017-11-19] MEDS ORDERED: POTASSIUM CHLORIDE 20 MEQ CONTROLLED RELEASE TAB PO ONE (12:15)
--- NOTE | 2017-11-19 15:08 | HHI.NPPN ---
Subjective History of Present Illness 42-year-old male with a past medical history of chronic alcoholism and chronic liver disease, history of pancreatitis, diabetes mellitus, depression, who was admitted with nausea, vomiting and epigastric pain. I was called to see the patient because of low potassium and electrolyte disorder. The patient has history of hypokalemia in the past and his potassium has been low in the past. Additional Remarks No complaints. Potassium and magnesium levels low. Objective Data Data 11/19/17 11/20/17 19:00 07:00 Output Total 200 ml Balance -200 ml Output Urine Total 200 ml Vital Signs Date Time Temp Pulse Resp B/P (MAP) Pulse Ox O2 Delivery O2 Flow Rate FiO2 11/19/17 11:52 97.5 78 20 92/50 (64) 100 11/19/17 08:29 97.9 74 20 90/53 (65) 98 11/19/17 05:00 98.2 72 16 94/58 (70) 98 11/19/17 00:45 98.9 67 16 89/52 (64) 99 11/18/17 21:00 98.9 70 16 84/50 (61) 98 11/18/17 16:00 98.0 71 18 81/52 (62) 98 -: 11/19/17 0746 11/19/17 0746 Imaging Last Impressions Central Venous Line 11/08/17 0000 Signed Impressions: Service Date/Time: October 11:47 - CONCLUSION: Uncomplicated line placement as above. Merlin Monteiro MD Abdomen/Pelvis CT 11/06/17 1137 Signed Impressions: Service Date/Time: Monday, November 06, 2017 14:50 - CONCLUSION: 1. Findings of chronic pancreatitis with calcifications in the head and uncinate process, dilation of the pancreatic duct and marked atrophy of the mid body and tail. 2. Diffuse hepatic fatty infiltration. No focal mass lesions. 3. Findings of portal hypertension with a portosystemic shunt emanating from the origin of the portal vein and draining into the left renal vein. 4. Cholelithiasis Merlin Monteiro MD Physical Exam General Appearance: No Acute Distress, Comfortable Eyes Eye Exam: Pupils Equal Throat Throat Exam: Oral Mucosa [place] & Moist Neck Neck Exam: Neck Supple Pulmonary Resp Exam: Breath Sounds Equal, No Distress Cardiology CV Exam: Regular, Normal Sinus Rhythm Gastrointestinal/Abdomen GI Exam: Soft, Non-Tender, Bowel Sounds Present Extremeties Extremities Exam: Trace Edema Neurologic Neuro Exam: Alert, Awake Psychiatric Psych Exam: Appropriate Responses Assessment/Plan Electrolyte Assessment: Hypokalemia Problem List: (1) Hypertension ICD Codes: I10 - Hypertension Status: Chronic (2) Alcohol intoxication ICD Codes: F10.129 - Alcohol abuse with intoxication, unspecified Status: Acute (3) Chronic pancreatitis ICD Codes: K86.1 - Other chronic pancreatitis Status: Acute (4) Acute liver failure ICD Codes: K72.00 - Acute and subacute hepatic failure without coma Status: Acute (5) Hypokalemia ICD Codes: E87.6 - Hypokalemia Status: Acute (6) Hyponatremia ICD Codes: E87.1 - Hypo-osmolality and hyponatremia Status: Acute (7) Hypomagnesemia ICD Codes: E83.42 - Hypomagnesemia Status: Acute (8) Alcohol withdrawal ICD Codes: F10.239 - Alcohol withdrawal syndrome Status: Acute Plan Patient has history of alcoholism and Acute liver failure. Also has chronic pancreatitis. K is low, along with other electrolyte disorder. Most likely has electrolyte problem due to decrease oral intake, and also due to renal tubular damage. Continue aldactone dose increased. Encourage oral intake Continue IVFs with potassium. Magnesium at 1.2 on oral replacement and IV given today Continues to have hypokalemia at 2.5, replacement given Will add daily PO Mg, increase daily PO KCL to 40meq daily. Continue to monitor Problem Qualifiers (1) Hypertension: Qualified Codes: I10 - Essential (primary) hypertension (2) Chronic pancreatitis: Qualified Codes: K86.0 - Alcohol-induced chronic pancreatitis (3) Acute liver failure: Qualified Codes: K72.00 - Acute and subacute hepatic failure without coma (4) Alcohol withdrawal: Qualified Codes: F10.230 - Alcohol dependence with withdrawal, uncomplicated Megha Del Cid November 19, 2017 15:08
[2017-11-19] MEDS: MELATONIN 5 MG TAB PO PRN (21:54)
[2017-11-20] VITALS (8 sets, daily range): BP systolic 87–117; BP diastolic 52–61; PULSE 61–92; RESP 18–20; TEMP 97.1–98.5; O2SAT 96–100
[2017-11-20] MEDS: NS + KCL 40 MEQ INJ 1,000 ML IV SCH ×2 (06:10→12:12)
[2017-11-20] MEDS: POTASSIUM PHOSPHATE/SODIUM PHOSPHATE 250 MG TAB PO SCH ×3 (06:10→21:36)
[2017-11-20] MEDS: INSULIN ASPART SUPPLEMENTAL SCALE SQ SCH ×4 (07:39→21:37)
[2017-11-20] MEDS: SODIUM CHLORIDE 0.9% FLUSH 10 ML FLUSH IV FLUSH SCH ×3 (08:08→21:00)
[2017-11-20] MEDS: THIAMINE HCL 100 MG TAB PO SCH (08:10)
[2017-11-20] MEDS: CALCIUM CARBONATE 1.25 GM (CA 500 MG) TAB PO SCH ×2 (08:10→21:36)
[2017-11-20] MEDS: PANTOPRAZOLE SOD 40 MG DELAYED RELEASE TAB PO SCH ×2 (08:10→21:36)
[2017-11-20] MEDS: PARoxetine HCL 20 MG TAB PO SCH (08:10)
[2017-11-20] MEDS: MAGNESIUM OXIDE 400 MG TAB PO SCH ×5 (08:10→21:36)
[2017-11-20] MEDS: LACTULOSE SYRUP 20 GM/30 ML CUP PO SCH (08:10)
[2017-11-20] MEDS: LIPASE/PROTEASE/AMYLASE (12,000/38,000/60,000) CAP PO SCH ×3 (08:10→16:26)
[2017-11-20] MEDS: RIFAXIMIN 550 MG TAB PO SCH ×2 (08:11→21:35)
[2017-11-20] MEDS: POTASSIUM CHLORIDE 20 MEQ CONTROLLED RELEASE TAB PO SCH (08:11)
[2017-11-20] MEDS: SPIRONOLACTONE 25 MG TAB PO SCH ×2 (08:11→15:41)
--- NOTE | 2017-11-20 10:01 | HHI.NPPN ---
Subjective History of Present Illness 42-year-old male with a past medical history of chronic alcoholism and chronic liver disease, history of pancreatitis, diabetes mellitus, depression, who was admitted with nausea, vomiting and epigastric pain. I was called to see the patient because of low potassium and electrolyte disorder. The patient has history of hypokalemia in the past and his potassium has been low in the past. Additional Remarks No complaints. Reports that he is feeling better. (Megha Del Cid) Objective Data Data 11/20/17 11/21/17 19:00 07:00 # Voids 3 Vital Signs Date Time Temp Pulse Resp B/P (MAP) Pulse Ox O2 Delivery O2 Flow Rate FiO2 11/20/17 09:25 16 11/20/17 08:02 97.5 77 20 117/59 (78) 98 11/20/17 04:00 97.8 67 18 95/53 (67) 98 11/20/17 00:00 97.1 67 18 94/56 (69) 98 11/19/17 21:51 97.4 68 19 107/67 (80) 99 11/19/17 20:00 97.3 69 18 91/54 (66) 98 11/19/17 16:00 97.5 78 20 92/50 (64) 100 11/19/17 11:52 97.5 78 20 92/50 (64) 100 (Megha Del Cid) -: 11/19/17 0746 11/19/17 0746 Physical Exam General Appearance: No Acute Distress, Comfortable (Megha Del Cid) Eyes Eye Exam: Pupils Equal (Megha Del Cid) Throat Throat Exam: Oral Mucosa [place] & Moist (Megha Del Cid) Neck Neck Exam: Neck Supple (Megha Del Cid) Pulmonary Resp Exam: Breath Sounds Equal, No Distress (Megha Del Cid) Cardiology CV Exam: Regular, Normal Sinus Rhythm (Megha Del Cid) Gastrointestinal/Abdomen GI Exam: Soft, Non-Tender, Bowel Sounds Present (Megha Del Cid) Extremeties Extremities Exam: Trace Edema (Megha Del Cid) Neurologic Neuro Exam: Alert, Awake (Megha Del Cid) Psychiatric Psych Exam: Appropriate Responses (Megha Del Cid) Assessment/Plan Electrolyte Assessment: Hypokalemia Problem List: (1) Hypertension ICD Codes: I10 - Hypertension Status: Chronic (2) Alcohol intoxication ICD Codes: F10.129 - Alcohol abuse with intoxication, unspecified Status: Acute (3) Chronic pancreatitis ICD Codes: K86.1 - Other chronic pancreatitis Status: Acute (4) Acute liver failure ICD Codes: K72.00 - Acute and subacute hepatic failure without coma Status: Acute (5) Hypokalemia ICD Codes: E87.6 - Hypokalemia Status: Acute (6) Hyponatremia ICD Codes: E87.1 - Hypo-osmolality and hyponatremia Status: Acute (7) Hypomagnesemia ICD Codes: E83.42 - Hypomagnesemia Status: Acute (8) Alcohol withdrawal ICD Codes: F10.239 - Alcohol withdrawal syndrome Status: Acute Plan Patient has history of alcoholism and Acute liver failure. Also has chronic pancreatitis. K is low, along with other electrolyte disorder. Most likely has electrolyte problem due to renal tubular damage. Continue aldactone dose Encourage oral intake On IVFs with potassium. Labs pending today. (Megha Del Cid) Plan Patient seen and examined, agree with above. Replace K and Magnesium as needed. Continue IVF. (Merlin Vieira MD) Problem Qualifiers (1) Hypertension: Qualified Codes: I10 - Essential (primary) hypertension (2) Chronic pancreatitis: Qualified Codes: K86.0 - Alcohol-induced chronic pancreatitis (3) Acute liver failure: Qualified Codes: K72.00 - Acute and subacute hepatic failure without coma (4) Alcohol withdrawal: Qualified Codes: F10.230 - Alcohol dependence with withdrawal, uncomplicated Megha Del Cid November 20, 2017 10:01 Merlin Vieira MD November 22, 2017 00:04
[2017-11-20 11:34] LABS: BICARBONATE 24.1 MEQ/L (21.0-32.0); CALCIUM 6.7 MG/DL (8.5-10.1); CREATININE 0.5 MG/DL (0.60-1.30)
[2017-11-20 12:00] LABS: CALCIUM-PROTEIN CORRECTED 8.1 MG/DL (8.5-10.1); TOTAL PROTEIN 4.4 GM/DL (6.4-8.2)
--- NOTE | 2017-11-20 12:14 | HHI.PR ---
Subjective Remarks Reports he is having less stools however is having still loose stools. Tolerating diet. No abdominal pain. Objective Vitals Vital Signs Date Time Temp Pulse Resp B/P (MAP) Pulse Ox O2 Delivery O2 Flow Rate FiO2 11/20/17 12:09 100/58 (72) 11/20/17 09:25 16 11/20/17 08:02 97.5 77 20 117/59 (78) 98 11/20/17 04:00 97.8 67 18 95/53 (67) 98 11/20/17 00:00 97.1 67 18 94/56 (69) 98 11/19/17 21:51 97.4 68 19 107/67 (80) 99 11/19/17 20:00 97.3 69 18 91/54 (66) 98 11/19/17 16:00 97.5 78 20 92/50 (64) 100 I/O 11/19/17 11/19/17 11/19/17 11/20/17 11/20/17 11/20/17 07:00 15:00 23:00 07:00 15:00 23:00 Intake Total 900 ml 100 ml 747 ml Output Total 600 ml 200 ml Balance 300 ml -100 ml 747 ml Intake Oral 900 ml IV Total 100 ml 747 ml Output Urine Total 600 ml 200 ml # Voids 3 # Bowel Movements 0 Result Diagram: 11/19/17 0746 11/20/17 1040 Other Results Item Value Date Time Bedside Blood Glucose 226 mg/dl 11/19/17 1127 Bedside Blood Glucose 146 mg/dl 11/19/17 0801 Bedside Blood Glucose 131 mg/dl 11/20/17 0739 Bedside Blood Glucose 231 mg/dl 11/19/17 2155 Objective Remarks GENERAL: This is a well-nourished, well-developed jaundice patient, in no apparent distress. CARDIOVASCULAR: Regular rate and rhythm RESPIRATORY: Clear to auscultation. Breath sounds equal bilaterally. No wheezes , rales, or rhonchi. GASTROINTESTINAL: Abdomen soft, mild epigastric tenderness, with no rebound or guarding. Nondistended. Normal active bowel sounds MUSCULOSKELETAL: Left upper extremity with bruising forearm antecubital area slightly swollen from previous IV site NEURO: Alert & Oriented x4 to person, place, time, situation. Moves all ext x4 Procedures central line placement. A/P Problem List: (1) Acute liver failure ICD Code: K72.00 - Acute and subacute hepatic failure without coma Status: Acute (2) Hyponatremia ICD Code: E87.1 - Hypo-osmolality and hyponatremia Status: Acute (3) Hypokalemia ICD Code: E87.6 - Hypokalemia Status: Acute (4) Chronic pancreatitis ICD Code: K86.1 - Other chronic pancreatitis Status: Acute (5) Alcohol abuse ICD Code: F10.10 - Alcohol abuse Status: Chronic (6) Hypomagnesemia ICD Code: E83.42 - Hypomagnesemia Status: Acute (7) Diabetes ICD Code: E11.9 - Type 2 diabetes mellitus without complications (8) Elevated LFTs ICD Code: R79.89 - Other specified abnormal findings of blood chemistry (9) Hyperammonemia ICD Code: E72.20 - Disorder of urea cycle metabolism, unspecified Assessment and Plan (1) Acute liver failure related to the patient's continuing use of alcohol. Patient has been counseled. Will avoid hepatotoxic agents. GI following and has cleared the patient for discharge; started on Lactulose and Rifaximin. will continue to monitor the liver function which is trending down. Decrease lactulose to 15 ml (2) Hyponatremia- improving. Likely combination of hypovolemic hyponatremia and chronic alcohol use. Hydrate with normal saline. sodium level has improved- continue to monitor. (3)persistent Hypokalemia/ hypomagnesemia and hypophosphatemia- continue to replace aggressively- will monitor the levels. started on Aldactone.will monitor the BP- increased to 25 twice daily as tolerated nephrology following and appreciate recommendations; replete potassium and mag today. (4) Chronic pancreatitis continue with Creon. (5) Alcohol abuse Patient was extensively counseled about the detrimental effects of alcohol on his health. [facility] protocol to prevent withdrawal. (6) Diabetes mellitus unclear if type 1 vs 2 without complications Noncompliant with insulin therapy. Restart Levemir at 5 units nightly and sliding scale insulin with Accu-Cheks. Overall fair glycemic control (7) coagulopathy- improving. continue with vitamin K- monitor for bleeding. 8) DVT prophylaxis no intra-coagulation due to liver disease, -bilateral SCDs Discharge Planning Home when medically stable, home health care for nursing education follow-up if able to arrange Problem Qualifiers (1) Acute liver failure: Qualified Codes: K72.00 - Acute and subacute hepatic failure without coma (2) Chronic pancreatitis: Qualified Codes: K86.0 - Alcohol-induced chronic pancreatitis Justine River MD November 20, 2017 12:14
[2017-11-20] MEDS ORDERED: POTASSIUM CHLORIDE 20 MEQ CONTROLLED RELEASE TAB PO ONE ×2 (12:15)
[2017-11-20] MEDS: MAGNESIUM SULFATE 1 GM PREMIX 100 ML IV SCH ×2 (12:50→12:51)
--- NOTE | 2017-11-20 16:47 | RADRPT ---
EXAM DATE: 11/20/2017 4:43 PM EDT AGE/SEX: 42 years / Male INDICATIONS: Left arm swelling. CLINICAL DATA: This is the patient's initial encounter. Patient reports that signs and symptoms have been present for 1 day and indicates a pain score of 1/10. MEDICAL/SURGICAL HISTORY: Hypercholesterolemia. Gastroesophageal reflux disease. Diabetes. H ypertension. Asthma. Pancreatitis. Cirrhosis. Tonsillectomy. Appendectomy. COMPARISON: No prior [facility] exams available for comparison. FINDINGS: There is spontaneous flow documented in the brachial, basilic, cephalic, axillary, and subc lavian veins. The vessels are compressible and augmentation response is documented. No filling defe cts are seen. The flow is phasic with respiration. Direction of flow in the jugular vein is caudal. CONCLUSION: 1. No evidence of DVT. Electronically signed by: Allen Delgadillo MD 11/20/2017 4:45 PM EDT
[2017-11-20] MEDS: MELATONIN 5 MG TAB PO PRN (21:36)
[2017-11-21] VITALS: BP 92/56; PULSE 67; RESP 18; TEMP 98.3; O2SAT 97
[2017-11-21 04:45] VITALS: BP 90/61; PULSE 75; RESP 19; TEMP 97.2; O2SAT 98
[2017-11-21] MEDS: POTASSIUM PHOSPHATE/SODIUM PHOSPHATE 250 MG TAB PO SCH ×3 (06:35→21:08)
[2017-11-21] MEDS: SPIRONOLACTONE 25 MG TAB PO SCH ×2 (07:39→16:19)
[2017-11-21 07:40] LABS: HEMATOCRIT 31.6 % (39.0-51.0); HEMOGLOBIN 10.9 GM/DL (13.0-17.0); MEAN CELL VOLUME 98.5 FL (80.0-100.0); MEAN CORPUSCULAR HGB CONC 34.6 % (32.0-36.0); MEAN PLATELET VOLUME 8.1 FL (7.0-11.0); PLATELET COUNT 479 TH/MM3 (150-450); RED CELL DISTRIBUTION WIDTH 14.7 % (11.6-17.2); WHITE BLOOD COUNT 13.5 TH/MM3 (4.0-11.0)
[2017-11-21] MEDS: INSULIN ASPART SUPPLEMENTAL SCALE SQ SCH ×4 (07:44→21:21)
[2017-11-21 08:00] VITALS: BP 115/55; PULSE 76; RESP 16; TEMP 97.8; O2SAT 100
[2017-11-21 08:19] LABS: BICARBONATE 25.7 MEQ/L (21.0-32.0); CALCIUM 7.1 MG/DL (8.5-10.1); MAGNESIUM 1.4 MG/DL (1.5-2.5)
[2017-11-21] MEDS: NS + KCL 40 MEQ INJ 1,000 ML IV SCH (08:20)
[2017-11-21] MEDS: SODIUM CHLORIDE 0.9% FLUSH 10 ML FLUSH IV FLUSH SCH ×3 (08:20→21:00)
[2017-11-21 08:21] LABS: CREATININE 0.57 MG/DL (0.60-1.30)
[2017-11-21] MEDS: THIAMINE HCL 100 MG TAB PO SCH (08:22)
[2017-11-21] MEDS: POTASSIUM CHLORIDE 20 MEQ CONTROLLED RELEASE TAB PO SCH ×2 (08:22→21:09)
[2017-11-21] MEDS: LACTULOSE SYRUP 20 GM/30 ML CUP PO SCH ×2 (08:22→08:24)
[2017-11-21] MEDS: PARoxetine HCL 20 MG TAB PO SCH (08:22)
[2017-11-21] MEDS: MAGNESIUM OXIDE 400 MG TAB PO SCH ×5 (08:22→21:08)
[2017-11-21] MEDS: PANTOPRAZOLE SOD 40 MG DELAYED RELEASE TAB PO SCH ×2 (08:22→21:08)
[2017-11-21] MEDS: LIPASE/PROTEASE/AMYLASE (12,000/38,000/60,000) CAP PO SCH ×3 (08:22→16:40)
[2017-11-21] MEDS: RIFAXIMIN 550 MG TAB PO SCH ×2 (08:23→21:08)
[2017-11-21] MEDS: CALCIUM CARBONATE 1.25 GM (CA 500 MG) TAB PO SCH ×2 (08:23→21:08)
[2017-11-21 08:39] LABS: CALCIUM-PROTEIN CORRECTED 8.3 MG/DL (8.5-10.1); TOTAL PROTEIN 4.9 GM/DL (6.4-8.2)
[2017-11-21 09:03] LABS: BANDS 16 % (0-6); BASOPHILS 1 % (0-2); LYMPHOCYTES 8 % (9-44); MONOCYTES 7 % (0-8); NEUTROPHIL # MANUAL DIFF 11.3 TH/MM3 (1.8-7.7); POLYS (SEG NEUTROPHILS) 68 % (16-70)
[2017-11-21 09:04] LABS: TARGET CELLS 2+ (NORMAL); TOXIC GRANULATION 2+ (NORMAL)
[2017-11-21] MEDS ORDERED: POTASSIUM CHLORIDE 10 MEQ CONTROLLED RELEASE TAB PO ONE ×2 (10:00→18:45)
[2017-11-21] MEDS: CHOLESTYRAMINE 4 GM PACKET PO SCH ×3 (10:23→21:07)
[2017-11-21] MEDS: MAGNESIUM SULFATE 1 GM PREMIX 100 ML IV SCH ×2 (10:23→12:46)
[2017-11-21] MEDS: POTASSIUM CHLOR 20 MEQ PREMIX 100 ML IV SCH ×2 (10:23→12:40)
[2017-11-21] MEDS ORDERED: CALCIUM CHLORIDE INJ 2 GM in SODIUM CHLORIDE 0.9% INJ 100 ML IV ONE ×2 (11:00→18:45)
--- NOTE | 2017-11-21 11:46 | HHI.NPPN ---
Subjective History of Present Illness 42-year-old male with a past medical history of chronic alcoholism and chronic liver disease, history of pancreatitis, diabetes mellitus, depression, who was admitted with nausea, vomiting and epigastric pain. I was called to see the patient because of low potassium and electrolyte disorder. The patient has history of hypokalemia in the past and his potassium has been low in the past. Additional Remarks Continues to have loose stools, 4-6 per day. No other complaints. (Megha Del Cid) Review of Systems Gastrointestinal Gastrointestinal: Diarrhea (Megha Del Cid) Objective Data Data 11/21/17 11/22/17 19:00 07:00 # Voids 4 Vital Signs Date Time Temp Pulse Resp B/P (MAP) Pulse Ox O2 Delivery O2 Flow Rate FiO2 11/21/17 10:02 16 11/21/17 08:00 97.8 76 16 115/55 (75) 100 11/21/17 04:45 97.2 75 19 90/61 (71) 98 11/21/17 00:00 98.3 67 18 92/56 (68) 97 11/20/17 21:41 98.0 92 19 107/59 (75) 98 11/20/17 20:00 98.5 66 18 87/52 (64) 97 11/20/17 16:45 97.9 77 20 98/61 (73) 100 11/20/17 12:15 97.9 61 20 96 11/20/17 12:09 100/58 (72) (Megha Del Cid) -: 11/21/17 0709 11/21/17 0709 Imaging Last Impressions Upper Extremity Ultrasound 11/20/17 0000 Signed Impressions: CONCLUSION: Central Venous Line 11/08/17 0000 Signed Impressions: Service Date/Time: October 11:47 - CONCLUSION: Uncomplicated line placement as above. Merlin Monteiro MD Abdomen/Pelvis CT 11/06/17 1137 Signed Impressions: Service Date/Time: Monday, November 06, 2017 14:50 - CONCLUSION: 1. Findings of chronic pancreatitis with calcifications in the head and uncinate process, dilation of the pancreatic duct and marked atrophy of the mid body and tail. 2. Diffuse hepatic fatty infiltration. No focal mass lesions. 3. Findings of portal hypertension with a portosystemic shunt emanating from the origin of the portal vein and draining into the left renal vein. 4. Cholelithiasis Merlin Monteiro [facility] Physical Exam General Appearance: No Acute Distress, Comfortable ([facility] REGULATORY AFFAIRS ANALYST) Eyes Eye Exam: Pupils Equal ([facility] REGULATORY AFFAIRS ANALYST) Throat Throat Exam: Oral Mucosa [place] & Moist ([facility] REGULATORY AFFAIRS ANALYST) Neck Neck Exam: Neck Supple ([facility] REGULATORY AFFAIRS ANALYST) Pulmonary Resp Exam: Breath Sounds Equal, No Distress ([facility] REGULATORY AFFAIRS ANALYST) Cardiology CV Exam: Regular, Normal Sinus Rhythm (Megha Del Cid REGULATORY AFFAIRS ANALYST) Gastrointestinal/Abdomen GI Exam: Soft, Non-Tender, Bowel Sounds Present (Megha Del Cid. REGULATORY AFFAIRS ANALYST) Extremeties Extremities Exam: Trace Edema (Megha Del Cid REGULATORY AFFAIRS ANALYST) Neurologic Neuro Exam: Alert, Awake ([facility] REGULATORY AFFAIRS ANALYST) Psychiatric Psych Exam: Appropriate Responses (Megha Del Cid REGULATORY AFFAIRS ANALYST) Assessment/Plan Electrolyte Assessment: Hypokalemia Problem List: (1) Hypertension ICD Codes: I10 - Hypertension Status: Chronic (2) Alcohol intoxication ICD Codes: F10.129 - Alcohol abuse with intoxication, unspecified Status: Acute (3) Chronic pancreatitis ICD Codes: K86.1 - Other chronic pancreatitis Status: Acute (4) Acute liver failure ICD Codes: K72.00 - Acute and subacute hepatic failure without coma Status: Acute (5) Hypokalemia ICD Codes: E87.6 - Hypokalemia Status: Acute (6) Hyponatremia ICD Codes: E87.1 - Hypo-osmolality and hyponatremia Status: Acute (7) Hypomagnesemia ICD Codes: E83.42 - Hypomagnesemia Status: Acute (8) Alcohol withdrawal ICD Codes: F10.239 - Alcohol withdrawal syndrome Status: Acute Plan Patient has history of alcoholism and Acute liver failure. Also has chronic pancreatitis. K is low, along with other electrolyte disorder. Most likely has electrolyte problem due to renal tubular damage. Continue aldactone dose unable to increase with blood pressure on lower side. Encourage oral intake On IVFs with potassium will decrease. Hypokalemia replacement has already been given. Will increase scheduled Hypomagnesium replacement has been given. Labs pending today. (Megha Del Cid) Plan Patient seen and examined, agree with above. Follow K and Mg. level. (Merlin Vieira MD) Problem Qualifiers (1) Hypertension: Qualified Codes: I10 - Essential (primary) hypertension (2) Chronic pancreatitis: Qualified Codes: K86.0 - Alcohol-induced chronic pancreatitis (3) Acute liver failure: Qualified Codes: K72.00 - Acute and subacute hepatic failure without coma (4) Alcohol withdrawal: Qualified Codes: F10.230 - Alcohol dependence with withdrawal, uncomplicated Megha Del Cid November 21, 2017 11:45 Merlin Vieira MD November 22, 2017 00:20
[2017-11-21 12:00] VITALS: BP 97/54; PULSE 63; RESP 18; TEMP 97.8; O2SAT 100
[2017-11-21 16:00] VITALS: BP 110/57; PULSE 70; RESP 16; TEMP 97.7; O2SAT 99
[2017-11-21 18:35] LABS: BICARBONATE 25.6 MEQ/L (21.0-32.0); CALCIUM 8.6 MG/DL (8.5-10.1); CREATININE 0.62 MG/DL (0.60-1.30)
--- NOTE | 2017-11-21 18:45 | HHI.PR ---
Subjective Remarks Patient complains of diarrhea. Patient denies chest pain, shortness of breath, abdominal pain. The patient denies nausea or vomiting. Objective Vitals Vital Signs Date Time Temp Pulse Resp B/P (MAP) Pulse Ox O2 Delivery O2 Flow Rate FiO2 11/21/17 15:23 16 11/21/17 12:00 97.8 63 18 97/54 (68) 100 11/21/17 08:00 97.8 76 16 115/55 (75) 100 11/21/17 04:45 97.2 75 19 90/61 (71) 98 11/21/17 00:00 98.3 67 18 92/56 (68) 97 11/20/17 21:41 98.0 92 19 107/59 (75) 98 11/20/17 20:00 98.5 66 18 87/52 (64) 97 I/O 11/20/17 11/20/17 11/20/17 11/21/17 11/21/17 11/21/17 06:59 14:59 22:59 06:59 14:59 22:59 # Voids 3 4 Result Diagram: 11/21/17 0709 11/21/17 0709 Imaging Last Impressions Upper Extremity Ultrasound 11/20/17 0000 Signed Impressions: CONCLUSION: 1. No evidence of DVT. Central Venous Line 11/08/17 0000 Signed Impressions: Service Date/Time: October 11:47 - CONCLUSION: Uncomplicated line placement as above. Merlin Monteiro MD Abdomen/Pelvis CT 11/06/17 1137 Signed Impressions: Service Date/Time: Monday, November 06, 2017 14:50 - CONCLUSION: 1. Findings of chronic pancreatitis with calcifications in the head and uncinate process, dilation of the pancreatic duct and marked atrophy of the mid body and tail. 2. Diffuse hepatic fatty infiltration. No focal mass lesions. 3. Findings of portal hypertension with a portosystemic shunt emanating from the origin of the portal vein and draining into the left renal vein. 4. Cholelithiasis Merlin Monteiro MD Objective Remarks GENERAL: This is a well-nourished, well-developed jaundice patient, in no apparent distress. CARDIOVASCULAR: Regular rate and rhythm RESPIRATORY: Clear to auscultation. Breath sounds equal bilaterally. No wheezes , rales, or rhonchi. GASTROINTESTINAL: Abdomen soft, mild epigastric tenderness, with no rebound or guarding. Nondistended. Normal active bowel sounds MUSCULOSKELETAL: Left upper extremity with bruising forearm antecubital area slightly swollen from previous IV site NEURO: Alert & Oriented x4 to person, place, time, situation. Moves all ext x4 Procedures central line placement. Medications and IVs Current Medications Medications (Trade) Dose Ordered Sig/Ralf Route Start Time Stop Time Status Last Admin (NS Flush) 2 ml UNSCH PRN IV FLUSH 11/06/17 16:15 (NS Flush) 2 ml BID IV FLUSH 11/06/17 21:00 11/18/17 07:39 (Zofran Inj) 4 mg Q6H PRN IV PUSH 11/06/17 16:15 11/07/17 07:53 (Romazicon Inj) 0.2 mg Q1M PRN IV PUSH 11/06/17 16:15 (Ativan) 1 mg Q4H PRN PO 11/06/17 16:15 11/16/17 10:21 (Ativan Inj) 1 mg Q4H PRN IV PUSH 11/06/17 16:15 11/09/17 13:29 (Ativan) 2 mg Q2H PRN PO 11/06/17 16:15 (Ativan Inj) 2 mg Q2H PRN IV PUSH 11/06/17 16:15 11/09/17 09:45 (Ativan Inj) 2 mg Q1H PRN IV PUSH 11/06/17 16:15 (Ativan Inj) 2 mg Q15M PRN IV PUSH 11/06/17 16:15 (Toprol Xl) 25 mg DAILY PO 11/07/17 09:00 Future Hold 11/17/17 09:51 (Creon 12-38-60) 1 cap TID PO 11/06/17 18:00 11/21/17 16:40 (Paxil) 40 mg DAILY PO 11/07/17 09:00 11/21/17 08:22 (D50w (Vial) Inj) 50 ml UNSCH PRN IV PUSH 11/06/17 16:15 (Glucagon Inj) 1 mg UNSCH PRN OTHER 11/06/17 16:15 (NovoLOG SUPPLEMENTAL SCALE) 1 ACHS SLIDING SCALE SQ 11/06/17 17:00 11/21/17 12:38 (Xifaxan) 550 mg BID PO 11/06/17 21:00 11/21/17 08:23 (Vitamin B1) 100 mg DAILY PO 11/07/17 09:00 11/21/17 08:22 (Roxicodone) 5 mg Q6H PRN PO 11/07/17 17:00 11/21/17 14:34 (NS Flush) DAILY IV FLUSH 11/09/17 09:00 11/16/17 10:20 (NS Flush) UNSCH PRN IV FLUSH 11/08/17 12:00 Potassium Chloride/Sodium Chloride 1,000 ml @ 42 mls/hr [id number] IV 11/09/17 16:45 11/21/17 08:20 (K-Phos Neutral) 250 mg Q8HR PO 11/11/17 09:00 11/21/17 12:40 (Oscal) 500 mg Q12HR PO 11/15/17 21:00 11/21/17 08:23 (Protonix) 40 mg BID PO 11/16/17 21:00 11/21/17 08:22 (Pill Splitter) 1 ea UNSCH PRN OTHER 11/17/17 14:00 (Mag-Ox) 400 mg BID PO 11/18/17 14:00 11/21/17 08:22 (Melatonin) 5 mg HS PRN PO 11/18/17 20:30 11/20/17 21:36 (Lactulose Liq) 15 ml DAILY PO 11/20/17 09:00 11/20/17 08:10 (Mag-Ox) 800 mg TID PO 11/19/17 13:00 11/21/17 16:41 (Aldactone) 25 mg BID@,18 PO 11/19/17 18:00 11/20/17 08:11 (Questran 4 Gm Pkt) 4 gm Q8HR PO 11/21/17 10:00 11/21/17 12:40 (KCl) 40 meq BID PO 11/21/17 21:00 A/P Problem List: (1) Acute liver failure ICD Code: K72.00 - Acute and subacute hepatic failure without coma Status: Acute (2) Hyponatremia ICD Code: E87.1 - Hypo-osmolality and hyponatremia Status: Acute (3) Hypokalemia ICD Code: E87.6 - Hypokalemia Status: Acute (4) Chronic pancreatitis ICD Code: K86.1 - Other chronic pancreatitis Status: Acute (5) Alcohol abuse ICD Code: F10.10 - Alcohol abuse Status: Chronic (6) Hypomagnesemia ICD Code: E83.42 - Hypomagnesemia Status: Acute (7) Diabetes ICD Code: E11.9 - Type 2 diabetes mellitus without complications (8) Elevated LFTs ICD Code: R79.89 - Other specified abnormal findings of blood chemistry (9) Hyperammonemia ICD Code: E72.20 - Disorder of urea cycle metabolism, unspecified Assessment and Plan 1. Acute liver failure. Related to alcohol abuse. Counseled on alcohol cessation. Avoid hepatotoxic agents. GI consulted and following. Patient has been cleared for discharge from the GI standpoint. Start on lactulose or rifaximin. Continue to monitor liver function tests which have been trending down. (2) Hyponatremia-resolved Likely combination of hypovolemic hyponatremia and chronic alcohol use. That is post treatment with IV normal saline. Sodium level within normal range now. Continue to monitor BMP. (3)persistent Hypokalemia/ hypomagnesemia and hypophosphatemia- continue to replace aggressively- will monitor the levels. started on Aldactone.will monitor the BP- increased to 25 twice daily as tolerated 10/22 we will replace potassium oral and IV potassium chloride. Replace calcium with IV calcium chloride. Persistent hypokalemia likely related to diarrhea. I will hold lactulose for now and start the patient on Questran. (4) Chronic pancreatitis continue with Creon. (5) Alcohol abuse Patient was extensively counseled about the detrimental effects of alcohol on his health. [facility] protocol to prevent withdrawal. (6) Diabetes mellitus unclear if type 1 vs 2 without complications Noncompliant with insulin therapy. Restart Levemir at 5 units nightly and sliding scale insulin with Accu-Cheks. Overall fair glycemic control (7) coagulopathy- improving. continue with vitamin K- monitor for bleeding. 8) DVT prophylaxis no intra-coagulation due to liver disease, -bilateral SCDs Discharge Planning Discharge once electrolyte abnormalities are replaced and diarrhea improved. Problem Qualifiers (1) Acute liver failure: Qualified Codes: K72.00 - Acute and subacute hepatic failure without coma (2) Chronic pancreatitis: Qualified Codes: K86.0 - Alcohol-induced chronic pancreatitis Ankush Godfrey MD November 21, 2017 18:45
[2017-11-21 20:00] VITALS: BP 120/56; PULSE 76; RESP 18; TEMP 97.9; O2SAT 100
[2017-11-21] MEDS: MELATONIN 5 MG TAB PO PRN (21:08)
[2017-11-22] VITALS (7 sets, daily range): BP systolic 106–123; BP diastolic 52–62; PULSE 66–82; RESP 18–20; TEMP 97.5–98.3; O2SAT 96–100
[2017-11-22] MEDS: CHOLESTYRAMINE 4 GM PACKET PO SCH ×3 (06:58→22:12)
[2017-11-22] MEDS: POTASSIUM PHOSPHATE/SODIUM PHOSPHATE 250 MG TAB PO SCH ×3 (06:58→22:12)
[2017-11-22] MEDS: SODIUM CHLORIDE 0.9% FLUSH 10 ML FLUSH IV FLUSH SCH ×3 (07:13→22:13)
[2017-11-22] MEDS: MAGNESIUM OXIDE 400 MG TAB PO SCH ×5 (07:13→22:13)
[2017-11-22] MEDS: INSULIN ASPART SUPPLEMENTAL SCALE SQ SCH ×4 (07:13→21:00)
[2017-11-22 07:15] LABS: HEMATOCRIT 31.2 % (39.0-51.0); HEMOGLOBIN 10.4 GM/DL (13.0-17.0); MEAN CELL VOLUME 98.2 FL (80.0-100.0); MEAN CORPUSCULAR HEMOGLOBIN 32.8 PG (27.0-34.0); MEAN CORPUSCULAR HGB CONC 33.4 % (32.0-36.0); MEAN PLATELET VOLUME 8.1 FL (7.0-11.0); PLATELET COUNT 470 TH/MM3 (150-450); RED BLOOD COUNT 3.17 MIL/MM3 (4.50-5.90); RED CELL DISTRIBUTION WIDTH 14.5 % (11.6-17.2); WHITE BLOOD COUNT 13.6 TH/MM3 (4.0-11.0)
[2017-11-22] MEDS: THIAMINE HCL 100 MG TAB PO SCH (07:17)
[2017-11-22] MEDS: PARoxetine HCL 20 MG TAB PO SCH (07:17)
[2017-11-22] MEDS: POTASSIUM CHLORIDE 20 MEQ CONTROLLED RELEASE TAB PO SCH ×3 (07:17→17:32)
[2017-11-22] MEDS: RIFAXIMIN 550 MG TAB PO SCH ×2 (07:17→22:13)
[2017-11-22] MEDS: LIPASE/PROTEASE/AMYLASE (12,000/38,000/60,000) CAP PO SCH ×3 (07:17→17:32)
[2017-11-22] MEDS: SPIRONOLACTONE 25 MG TAB PO SCH ×2 (07:17→16:55)
[2017-11-22] MEDS: CALCIUM CARBONATE 1.25 GM (CA 500 MG) TAB PO SCH ×2 (07:18→22:12)
[2017-11-22] MEDS: PANTOPRAZOLE SOD 40 MG DELAYED RELEASE TAB PO SCH ×2 (07:18→22:12)
[2017-11-22 07:51] LABS: ALBUMIN 1.5 GM/DL (3.4-5.0); ALKALINE PHOSPHATASE 206 U/L (45-117); ALT (GPT) 21 U/L (12-78); AST (GOT) 105 U/L (15-37); BICARBONATE 25.4 MEQ/L (21.0-32.0); BLOOD UREA NITROGEN 4 MG/DL (7-18); CALCIUM 9.1 MG/DL (8.5-10.1); CHLORIDE 103 MEQ/L (98-107); GLOMERULAR FILTRATION RATE 139 ML/MIN (>89); GLUCOSE,RANDOM 162 MG/DL (74-106); MAGNESIUM 1.3 MG/DL (1.5-2.5); PHOSPHORUS 3.6 MG/DL (2.5-4.9); SODIUM (NA) 142 MEQ/L (136-145); TOTAL BILIRUBIN ADULT 19.6 MG/DL (0.2-1.0)
[2017-11-22 07:55] LABS: CREATININE 0.63 MG/DL (0.60-1.30); TOTAL PROTEIN 4.8 GM/DL (6.4-8.2)
[2017-11-22] MEDS: NS + KCL 40 MEQ INJ 1,000 ML IV SCH ×2 (08:18→12:04)
[2017-11-22] MEDS: MAGNESIUM SULFATE 1 GM PREMIX 100 ML IV SCH ×2 (09:10→10:05)
[2017-11-22] MEDS: POTASSIUM CHLOR 20 MEQ PREMIX 100 ML IV SCH ×2 (11:18→13:14)
[2017-11-22] MEDS ORDERED: POTASSIUM CHLORIDE 20 MEQ CONTROLLED RELEASE TAB PO SCH (13:00)
[2017-11-22] MEDS: MEGESTROL ACETATE SUSP 400 MG/10 ML CUP PO SCH (13:15)
--- NOTE | 2017-11-22 15:30 | HHI.PR ---
Subjective Remarks Potassium still severely low. Magnesium as well. Patient states he still having diarrhea, however it this is improving. The patient denies abdominal pain, nausea or vomiting. Complains of poor appetite. As per mother who is at bedside states that the patient is not eating really well. Objective Vitals Vital Signs Date Time Temp Pulse Resp B/P (MAP) Pulse Ox O2 Delivery O2 Flow Rate FiO2 11/22/17 12:27 97.8 72 20 106/55 (72) 96 11/22/17 08:17 97.9 75 20 118/56 (76) 98 11/22/17 04:00 97.5 82 18 108/62 (77) 99 11/22/17 00:00 98.3 75 18 123/61 (81) 100 11/21/17 20:00 97.9 76 18 120/56 (77) 100 11/21/17 16:00 97.7 70 16 110/57 (74) 99 I/O 11/21/17 11/21/17 11/21/17 11/22/17 11/22/17 11/22/17 07:00 15:00 23:00 07:00 15:00 23:00 Intake Total 600 ml 120 ml 286 ml Balance 600 ml 120 ml 286 ml Intake Oral 600 ml IV Total 120 ml 286 ml # Voids 4 4 2 # Bowel Movements 1 Result Diagram: 11/22/17 0647 11/22/17 0647 Imaging Last Impressions Upper Extremity Ultrasound 11/20/17 0000 Signed Impressions: CONCLUSION: 1. No evidence of DVT. Central Venous Line 11/08/17 0000 Signed Impressions: Service Date/Time: October 11:47 - CONCLUSION: Uncomplicated line placement as above. Merlin Monteiro MD Abdomen/Pelvis CT 11/06/17 1137 Signed Impressions: Service Date/Time: Monday, November 06, 2017 14:50 - CONCLUSION: 1. Findings of chronic pancreatitis with calcifications in the head and uncinate process, dilation of the pancreatic duct and marked atrophy of the mid body and tail. 2. Diffuse hepatic fatty infiltration. No focal mass lesions. 3. Findings of portal hypertension with a portosystemic shunt emanating from the origin of the portal vein and draining into the left renal vein. 4. Cholelithiasis Merlin Monteiro MD Objective Remarks AAOx3 + jaundice and icteric sclera Lungs are clear to auscultation bilaterally. S1-S2 present with regular rate and rhythm, no murmur rubs or gallops. Abdomen is soft, nontender, mildly distended. There is no edema in bilateral lower extremities. Procedures central line placement. A/P Problem List: (1) Acute liver failure ICD Code: K72.00 - Acute and subacute hepatic failure without coma Status: Acute (2) Hyponatremia ICD Code: E87.1 - Hypo-osmolality and hyponatremia Status: Acute (3) Hypokalemia ICD Code: E87.6 - Hypokalemia Status: Acute (4) Chronic pancreatitis ICD Code: K86.1 - Other chronic pancreatitis Status: Acute (5) Alcohol abuse ICD Code: F10.10 - Alcohol abuse Status: Chronic (6) Hypomagnesemia ICD Code: E83.42 - Hypomagnesemia Status: Acute (7) Diabetes ICD Code: E11.9 - Type 2 diabetes mellitus without complications (8) Elevated LFTs ICD Code: R79.89 - Other specified abnormal findings of blood chemistry (9) Hyperammonemia ICD Code: E72.20 - Disorder of urea cycle metabolism, unspecified Assessment and Plan 1. Acute liver failure. Related to alcohol abuse. Counseled on alcohol cessation. Avoid hepatotoxic agents. GI consulted and following. Patient has been cleared for discharge from the GI standpoint. Start on lactulose or rifaximin. Continue to monitor liver function tests which have been trending down. (2) Hyponatremia-resolved Likely combination of hypovolemic hyponatremia and chronic alcohol use. That is post treatment with IV normal saline. Sodium level within normal range now. Continue to monitor BMP. (3)persistent Hypokalemia/ hypomagnesemia and hypophosphatemia- continue to replace aggressively- will monitor the levels. started on Aldactone.will monitor the BP- increased to 25 twice daily as tolerated (4) Chronic pancreatitis continue with Creon. (5) Alcohol abuse Patient was extensively counseled about the detrimental effects of alcohol on his health. [facility] protocol to prevent withdrawal. (6) Diabetes mellitus unclear if type 1 vs 2 without complications Noncompliant with insulin therapy. Restart Levemir at 5 units nightly and sliding scale insulin with Accu-Cheks. Overall fair glycemic control (7) coagulopathy- improving. continue with vitamin K- monitor for bleeding. 8. Electrolyte abnormalities. The patient has refractory hypokalemia, likely induced by diarrhea and oral intake. Patient has has hypomagnesemia. Will replace with IV potassium chloride as well as scheduled potassium chloride 3 times daily. Replace magnesium with IV magnesium sulfate. Place the patient on telemetry. 9. Poor appetite. I will start the patient on Megace. 8) DVT prophylaxis no intra-coagulation due to liver disease, -bilateral SCDs Discharge Planning Discharge once electrolyte abnormalities are replaced and diarrhea improved. Problem Qualifiers (1) Acute liver failure: Qualified Codes: K72.00 - Acute and subacute hepatic failure without coma (2) Chronic pancreatitis: Qualified Codes: K86.0 - Alcohol-induced chronic pancreatitis Ankush Godfrey MD November 22, 2017 15:30
--- NOTE | 2017-11-22 15:59 | HHI.NPPN ---
Subjective History of Present Illness 42-year-old male with a past medical history of chronic alcoholism and chronic liver disease, history of pancreatitis, diabetes mellitus, depression, who was admitted with nausea, vomiting and epigastric pain. I was called to see the patient because of low potassium and electrolyte disorder. The patient has history of hypokalemia in the past and his potassium has been low in the past. Additional Remarks Resting comfortable. Potassium continues to be low. (Megha Del Cid) Review of Systems Gastrointestinal Gastrointestinal: Diarrhea (Megha Del Cid) Objective Data Data 11/22/17 11/23/17 19:00 07:00 Intake Total 286 ml Balance 286 ml IV Total 286 ml Vital Signs Date Time Temp Pulse Resp B/P (MAP) Pulse Ox O2 Delivery O2 Flow Rate FiO2 11/22/17 12:27 97.8 72 20 106/55 (72) 96 11/22/17 08:17 97.9 75 20 118/56 (76) 98 11/22/17 04:00 97.5 82 18 108/62 (77) 99 11/22/17 00:00 98.3 75 18 123/61 (81) 100 11/21/17 20:00 97.9 76 18 120/56 (77) 100 11/21/17 16:00 97.7 70 16 110/57 (74) 99 (Megha Del Cid) -: 11/22/17 0647 11/22/17 0647 Physical Exam General Appearance: No Acute Distress, Comfortable (Megha Del Cid) Eyes Eye Exam: Pupils Equal (Megha Del Cid) Throat Throat Exam: Oral Mucosa [place] & Moist (Megha Del Cid) Neck Neck Exam: Neck Supple (Megha Del Cid) Pulmonary Resp Exam: Breath Sounds Equal, No Distress (Megha Del Cid) Cardiology CV Exam: Regular, Normal Sinus Rhythm (Megha Del Cid) Gastrointestinal/Abdomen GI Exam: Soft, Non-Tender, Bowel Sounds Present, Distended (Megha Del Cid) Extremeties Extremities Exam: Trace Edema (Megha Del Cid) Neurologic Neuro Exam: Alert, Awake (Megha Del Cid) Psychiatric Psych Exam: Appropriate Responses (Megha Del Cid) Assessment/Plan Electrolyte Assessment: Hypokalemia Problem List: (1) Hypertension ICD Codes: I10 - Hypertension Status: Chronic (2) Alcohol intoxication ICD Codes: F10.129 - Alcohol abuse with intoxication, unspecified Status: Acute (3) Chronic pancreatitis ICD Codes: K86.1 - Other chronic pancreatitis Status: Acute (4) Acute liver failure ICD Codes: K72.00 - Acute and subacute hepatic failure without coma Status: Acute (5) Hypokalemia ICD Codes: E87.6 - Hypokalemia Status: Acute (6) Hyponatremia ICD Codes: E87.1 - Hypo-osmolality and hyponatremia Status: Acute (7) Hypomagnesemia ICD Codes: E83.42 - Hypomagnesemia Status: Acute (8) Alcohol withdrawal ICD Codes: F10.239 - Alcohol withdrawal syndrome Status: Acute Plan . Patient has history of alcoholism and Acute liver failure. Also has chronic pancreatitis. K is low, along with other electrolyte disorder. Most likely has electrolyte problem due to renal tubular damage. Continue aldactone BID Encourage oral intake Continue IVFs with potassium Hypokalemia replacement has already been given. Will increase scheduled to 60 meq TID Hypomagnesium replacement has been given. Labs in am (Megha Del Cid) Plan Patient seen and examine, agree with above. Continue Aldactone and K replacement. (Merlin Vieira MD) Problem Qualifiers (1) Hypertension: Qualified Codes: I10 - Essential (primary) hypertension (2) Chronic pancreatitis: Qualified Codes: K86.0 - Alcohol-induced chronic pancreatitis (3) Acute liver failure: Qualified Codes: K72.00 - Acute and subacute hepatic failure without coma (4) Alcohol withdrawal: Qualified Codes: F10.230 - Alcohol dependence with withdrawal, uncomplicated Megha Del Cid November 22, 2017 15:59 Merlin Vieira MD November 23, 2017 00:22
[2017-11-22 21:27] LABS: BICARBONATE 22.9 MEQ/L (21.0-32.0); CALCIUM 8.9 MG/DL (8.5-10.1); CREATININE 0.66 MG/DL (0.60-1.30)
[2017-11-22] MEDS ORDERED: POTASSIUM CHLORIDE 20 MEQ CONTROLLED RELEASE TAB PO ONE (22:30)
[2017-11-22] MEDS ORDERED: MAGNESIUM SULFATE 1 GM PREMIX 100 ML IV ONE (22:30)
[2017-11-23] VITALS (9 sets, daily range): BP systolic 92–118; BP diastolic 54–60; PULSE 67–77; RESP 16–20; TEMP 97.6–98.6; O2SAT 96–99
[2017-11-23] MEDS: POTASSIUM PHOSPHATE/SODIUM PHOSPHATE 250 MG TAB PO SCH ×3 (05:23→21:53)
[2017-11-23] MEDS: CHOLESTYRAMINE 4 GM PACKET PO SCH ×3 (05:23→21:53)
[2017-11-23] MEDS: SODIUM CHLORIDE 0.9% FLUSH 10 ML FLUSH IV FLUSH SCH ×3 (08:33→20:26)
--- NOTE | 2017-11-23 08:53 | HHI.NPPN ---
Subjective History of Present Illness 42-year-old male with a past medical history of chronic alcoholism and chronic liver disease, history of pancreatitis, diabetes mellitus, depression, who was admitted with nausea, vomiting and epigastric pain. I was called to see the patient because of low potassium and electrolyte disorder. The patient has history of hypokalemia in the past and his potassium has been low in the past. Additional Remarks Resting comfortable with no complaints. (Megha Del Cid) Review of Systems Gastrointestinal Gastrointestinal: Diarrhea (Megha Del Cid) Objective Data Data Vital Signs Date Time Temp Pulse Resp B/P (MAP) Pulse Ox O2 Delivery O2 Flow Rate FiO2 11/23/17 04:00 97.6 70 20 107/56 (73) 98 11/23/17 00:00 97.8 72 18 92/54 (67) 99 11/22/17 20:00 97.9 66 18 108/52 (70) 98 11/22/17 16:56 74 11/22/17 15:59 97.7 77 20 106/57 (73) 98 11/22/17 12:27 97.8 72 20 106/55 (72) 96 (Megha Del Cid) -: 11/22/17 0647 11/22/171999 Imaging Last Impressions Upper Extremity Ultrasound 11/20/17 0000 Signed Impressions: CONCLUSION: 1. No evidence of DVT. Central Venous Line 11/08/17 0000 Signed Impressions: Service Date/Time: October 11:47 - CONCLUSION: Uncomplicated line placement as above. Merlin Monteiro MD Abdomen/Pelvis CT 11/06/17 1137 Signed Impressions: Service Date/Time: Monday, November 06, 2017 14:50 - CONCLUSION: 1. Findings of chronic pancreatitis with calcifications in the head and uncinate process, dilation of the pancreatic duct and marked atrophy of the mid body and tail. 2. Diffuse hepatic fatty infiltration. No focal mass lesions. 3. Findings of portal hypertension with a portosystemic shunt emanating from the origin of the portal vein and draining into the left renal vein. 4. Cholelithiasis Merlin Monteiro MD (Megha Del Cid) Physical Exam General Appearance: No Acute Distress, Comfortable (Megha Del Cid) Eyes Eye Exam: Pupils Equal (Megha Del Cid) Throat Throat Exam: Oral Mucosa [place] & Moist (Megha Del CidP) Neck Neck Exam: Neck Supple (Megha Del Cid) Pulmonary Resp Exam: Breath Sounds Equal, No Distress (Megha Del CidP) Cardiology CV Exam: Regular, Normal Sinus Rhythm (Megha Del CidP) Gastrointestinal/Abdomen GI Exam: Soft, Non-Tender, Bowel Sounds Present, Distended (Megha Del Cid) Extremeties Extremities Exam: Trace Edema (Megah Del Cid) Neurologic Neuro Exam: Alert, Awake (Megha Del Cid) Psychiatric Psych Exam: Appropriate Responses (Megha Del Cid) Assessment/Plan Electrolyte Assessment: Hypokalemia Problem List: (1) Hypertension ICD Codes: I10 - Hypertension Status: Chronic (2) Alcohol intoxication ICD Codes: F10.129 - Alcohol abuse with intoxication, unspecified Status: Acute (3) Chronic pancreatitis ICD Codes: K86.1 - Other chronic pancreatitis Status: Acute (4) Acute liver failure ICD Codes: K72.00 - Acute and subacute hepatic failure without coma Status: Acute (5) Hypokalemia ICD Codes: E87.6 - Hypokalemia Status: Acute (6) Hyponatremia ICD Codes: E87.1 - Hypo-osmolality and hyponatremia Status: Acute (7) Hypomagnesemia ICD Codes: E83.42 - Hypomagnesemia Status: Acute (8) Alcohol withdrawal ICD Codes: F10.239 - Alcohol withdrawal syndrome Status: Acute Plan Patient has history of alcoholism and Acute liver failure. Also has chronic pancreatitis. K is low, along with other electrolyte disorder. Most likely has electrolyte problem due to renal tubular damage. Also poor intake. Continue Aldactone dose Encourage oral intake Continue Megace as appetite stimulant Continue scheduled replacement of potassium replacement Labs are pending this morning. (Megha Del CidP) Plan Patient seen and examined, agree with above. K is still low, continue to replace orally. (Merlin Vieira MD) Problem Qualifiers (1) Hypertension: Qualified Codes: I10 - Essential (primary) hypertension (2) Chronic pancreatitis: Qualified Codes: K86.0 - Alcohol-induced chronic pancreatitis (3) Acute liver failure: Qualified Codes: K72.00 - Acute and subacute hepatic failure without coma (4) Alcohol withdrawal: Qualified Codes: F10.230 - Alcohol dependence with withdrawal, uncomplicated Megha Del Cid November 23, 2017 08:53 Merlin Vieira MD November 23, 2017 23:55
[2017-11-23] MEDS: MAGNESIUM OXIDE 400 MG TAB PO SCH ×5 (09:00→20:25)
[2017-11-23] MEDS: THIAMINE HCL 100 MG TAB PO SCH (09:07)
[2017-11-23] MEDS: LIPASE/PROTEASE/AMYLASE (12,000/38,000/60,000) CAP PO SCH ×3 (09:07→17:22)
[2017-11-23] MEDS: MEGESTROL ACETATE SUSP 400 MG/10 ML CUP PO SCH (09:07)
[2017-11-23] MEDS: RIFAXIMIN 550 MG TAB PO SCH ×2 (09:07→20:25)
[2017-11-23] MEDS: POTASSIUM CHLORIDE 20 MEQ CONTROLLED RELEASE TAB PO SCH ×5 (09:07→23:49)
[2017-11-23] MEDS: INSULIN ASPART SUPPLEMENTAL SCALE SQ SCH ×4 (09:08→20:26)
[2017-11-23] MEDS: SPIRONOLACTONE 25 MG TAB PO SCH ×2 (09:08→17:22)
[2017-11-23] MEDS: PANTOPRAZOLE SOD 40 MG DELAYED RELEASE TAB PO SCH ×2 (09:08→20:25)
[2017-11-23] MEDS: CALCIUM CARBONATE 1.25 GM (CA 500 MG) TAB PO SCH ×2 (09:08→20:25)
[2017-11-23] MEDS: PARoxetine HCL 20 MG TAB PO SCH (09:08)
--- NOTE | 2017-11-23 16:28 | HHI.PR ---
Subjective Remarks Patient states still has diarrhea but this is improving noted that bilirrubib is trending up Denies fevers or chills. Objective Vitals Vital Signs Date Time Temp Pulse Resp B/P (MAP) Pulse Ox O2 Delivery O2 Flow Rate FiO2 11/23/17 13:40 77 11/23/17 12:00 98.6 69 17 118/60 (79) 98 11/23/17 09:29 67 11/23/17 07:30 98.5 72 16 105/55 (72) 96 11/23/17 04:00 97.6 70 20 107/56 (73) 98 11/23/17 00:00 97.8 72 18 92/54 (67) 99 11/22/17 20:00 97.9 66 18 108/52 (70) 98 11/22/17 16:56 74 I/O 11/22/17 11/22/17 11/22/17 11/23/17 11/23/17 11/23/17 07:00 15:00 23:00 07:00 15:00 23:00 Intake Total 120 ml 286 ml 1320 ml Output Total 1000 ml Balance 120 ml 286 ml 320 ml Intake Oral 1220 ml IV Total 120 ml 286 ml 100 ml Output Urine Total 1000 ml # Voids 2 5 3 # Bowel Movements 1 5 0 Result Diagram: 11/22/17 0647 11/22/171999 Imaging Last Impressions Upper Extremity Ultrasound 11/20/17 0000 Signed Impressions: CONCLUSION: 1. No evidence of DVT. Central Venous Line 11/08/17 0000 Signed Impressions: Service Date/Time: October 11:47 - CONCLUSION: Uncomplicated line placement as above. Merlin Monteiro MD Abdomen/Pelvis CT 11/06/17 1137 Signed Impressions: Service Date/Time: Monday, November 06, 2017 14:50 - CONCLUSION: 1. Findings of chronic pancreatitis with calcifications in the head and uncinate process, dilation of the pancreatic duct and marked atrophy of the mid body and tail. 2. Diffuse hepatic fatty infiltration. No focal mass lesions. 3. Findings of portal hypertension with a portosystemic shunt emanating from the origin of the portal vein and draining into the left renal vein. 4. Cholelithiasis Merlin Monteiro MD Objective Remarks AAOx3 + jaundice and icteric sclera Lungs are clear to auscultation bilaterally. S1-S2 present with regular rate and rhythm, no murmur rubs or gallops. Abdomen is soft, nontender, mildly distended. There is no edema in bilateral lower extremities. Procedures central line placement. A/P Problem List: (1) Acute liver failure ICD Code: K72.00 - Acute and subacute hepatic failure without coma Status: Acute (2) Hyponatremia ICD Code: E87.1 - Hypo-osmolality and hyponatremia Status: Acute (3) Hypokalemia ICD Code: E87.6 - Hypokalemia Status: Acute (4) Chronic pancreatitis ICD Code: K86.1 - Other chronic pancreatitis Status: Acute (5) Alcohol abuse ICD Code: F10.10 - Alcohol abuse Status: Chronic (6) Hypomagnesemia ICD Code: E83.42 - Hypomagnesemia Status: Acute (7) Diabetes ICD Code: E11.9 - Type 2 diabetes mellitus without complications (8) Elevated LFTs ICD Code: R79.89 - Other specified abnormal findings of blood chemistry (9) Hyperammonemia ICD Code: E72.20 - Disorder of urea cycle metabolism, unspecified Assessment and Plan 1. Acute liver failure. Related to alcohol abuse. Counseled on alcohol cessation. Avoid hepatotoxic agents. GI consulted and following. Patient has been cleared for discharge from the GI standpoint. Start on lactulose or rifaximin. Continue to monitor liver function tests which have been trending down. (2) Hyponatremia-resolved Likely combination of hypovolemic hyponatremia and chronic alcohol use. That is post treatment with IV normal saline. Sodium level within normal range now. Continue to monitor BMP. (3)persistent Hypokalemia/ hypomagnesemia and hypophosphatemia- continue to replace aggressively- will monitor the levels. started on Aldactone.will monitor the BP- increased to 25 twice daily as tolerated (4) Chronic pancreatitis continue with Creon. (5) Alcohol abuse Patient was extensively counseled about the detrimental effects of alcohol on his health. [facility] protocol to prevent withdrawal. (6) Diabetes mellitus unclear if type 1 vs 2 without complications Noncompliant with insulin therapy. Restart Levemir at 5 units nightly and sliding scale insulin with Accu-Cheks. Overall fair glycemic control (7) coagulopathy- improving. continue with vitamin K- monitor for bleeding. 8. Electrolyte abnormalities. The patient has refractory hypokalemia, likely induced by diarrhea and oral intake as well as renal tubular damage. Patient has has hypomagnesemia. Will replace with IV potassium chloride as well as scheduled potassium chloride 3 times daily. Replace magnesium with IV magnesium sulfate. Place the patient on telemetry. 11/23 labs pending since patient refused in am. Monitor BMP and replace electrolyte abnormalities as above. 9. Poor appetite. Continue Megace. 8) DVT prophylaxis no intra-coagulation due to liver disease, -bilateral SCDs Discharge Planning Discharge once electrolyte abnormalities are replaced and diarrhea improved. Problem Qualifiers (1) Acute liver failure: Qualified Codes: K72.00 - Acute and subacute hepatic failure without coma (2) Chronic pancreatitis: Qualified Codes: K86.0 - Alcohol-induced chronic pancreatitis Ankush Godfrey MD November 23, 2017 16:28
[2017-11-23 17:58] LABS: HEMATOCRIT 32.3 % (39.0-51.0); HEMOGLOBIN 10.7 GM/DL (13.0-17.0); MEAN CELL VOLUME 103.6 FL (80.0-100.0); MEAN CORPUSCULAR HEMOGLOBIN 34.4 PG (27.0-34.0); MEAN CORPUSCULAR HGB CONC 33.2 % (32.0-36.0); MEAN PLATELET VOLUME 7.8 FL (7.0-11.0); PLATELET COUNT 383 TH/MM3 (150-450); RED BLOOD COUNT 3.12 MIL/MM3 (4.50-5.90); RED CELL DISTRIBUTION WIDTH 15.3 % (11.6-17.2); WHITE BLOOD COUNT 15.7 TH/MM3 (4.0-11.0)
[2017-11-23 18:15] LABS: BICARBONATE 24.6 MEQ/L (21.0-32.0); CALCIUM 8.2 MG/DL (8.5-10.1); CREATININE 0.75 MG/DL (0.60-1.30); MAGNESIUM 1.4 MG/DL (1.5-2.5); PHOSPHORUS 3.2 MG/DL (2.5-4.9)
[2017-11-23] MEDS: MAGNESIUM SULFATE 1 GM PREMIX 100 ML IV SCH ×2 (20:26→21:53)
[2017-11-24] VITALS (8 sets, daily range): BP systolic 101–105; BP diastolic 55–64; PULSE 68–78; RESP 16–18; TEMP 97.3–98.2; O2SAT 97–99
[2017-11-24] MEDS: POTASSIUM PHOSPHATE/SODIUM PHOSPHATE 250 MG TAB PO SCH ×3 (06:23→21:38)
[2017-11-24] MEDS: CHOLESTYRAMINE 4 GM PACKET PO SCH ×2 (06:23→13:18)
[2017-11-24] MEDS: INSULIN ASPART SUPPLEMENTAL SCALE SQ SCH ×4 (08:00→21:43)
[2017-11-24 08:02] LABS: AUTOMATED NEUTROPHIL # 11.9 TH/MM3 (1.8-7.7); BASOPHIL # 0.2 TH/MM3 (0-0.2); BASOPHIL % 1.5 % (0.0-2.0); EOSINOPHIL # 0.2 TH/MM3 (0-0.4); EOSINOPHIL % 1.3 % (0.0-4.0); HEMATOCRIT 30.2 % (39.0-51.0); HEMOGLOBIN 10.2 GM/DL (13.0-17.0); LYMPH % 14.3 % (9.0-44.0); LYMPHOCYTE # 2.2 TH/MM3 (1.0-4.8); MEAN CELL VOLUME 98.4 FL (80.0-100.0); MEAN CORPUSCULAR HGB CONC 33.6 % (32.0-36.0); MEAN PLATELET VOLUME 7.9 FL (7.0-11.0); MONO % 6.6 % (0.0-8.0); NEUT % 76.3 % (16.0-70.0); PLATELET COUNT 454 TH/MM3 (150-450); RED BLOOD COUNT 3.07 MIL/MM3 (4.50-5.90); RED CELL DISTRIBUTION WIDTH 14.5 % (11.6-17.2); WHITE BLOOD COUNT 15.7 TH/MM3 (4.0-11.0)
[2017-11-24 08:29] LABS: ALBUMIN 1.5 GM/DL (3.4-5.0); ALKALINE PHOSPHATASE 212 U/L (45-117); ALT (GPT) 26 U/L (12-78); AST (GOT) 136 U/L (15-37); BICARBONATE 26.9 MEQ/L (21.0-32.0); BLOOD UREA NITROGEN 6 MG/DL (7-18); CALCIUM 8.4 MG/DL (8.5-10.1); CHLORIDE 104 MEQ/L (98-107); CREATININE 0.75 MG/DL (0.60-1.30); GLOMERULAR FILTRATION RATE 114 ML/MIN (>89); GLUCOSE,RANDOM 150 MG/DL (74-106); SODIUM (NA) 140 MEQ/L (136-145); TOTAL BILIRUBIN ADULT 21.9 MG/DL (0.2-1.0); TOTAL PROTEIN 4.7 GM/DL (6.4-8.2)
[2017-11-24] MEDS: SODIUM CHLORIDE 0.9% FLUSH 10 ML FLUSH IV FLUSH SCH ×3 (08:43→17:01)
[2017-11-24] MEDS: MEGESTROL ACETATE SUSP 400 MG/10 ML CUP PO SCH (08:47)
[2017-11-24] MEDS: PARoxetine HCL 20 MG TAB PO SCH (08:47)
[2017-11-24] MEDS: MAGNESIUM OXIDE 400 MG TAB PO SCH ×3 (08:47→12:09)
[2017-11-24] MEDS: CALCIUM CARBONATE 1.25 GM (CA 500 MG) TAB PO SCH ×2 (08:47→21:38)
[2017-11-24] MEDS: THIAMINE HCL 100 MG TAB PO SCH (08:48)
[2017-11-24] MEDS: LIPASE/PROTEASE/AMYLASE (12,000/38,000/60,000) CAP PO SCH ×3 (08:48→17:57)
[2017-11-24] MEDS: SPIRONOLACTONE 25 MG TAB PO SCH ×2 (08:48→17:58)
[2017-11-24] MEDS: PANTOPRAZOLE SOD 40 MG DELAYED RELEASE TAB PO SCH ×2 (08:48→21:38)
[2017-11-24] MEDS: RIFAXIMIN 550 MG TAB PO SCH ×2 (08:48→21:39)
[2017-11-24] MEDS: POTASSIUM CHLORIDE 20 MEQ CONTROLLED RELEASE TAB PO SCH ×3 (08:48→17:57)
--- NOTE | 2017-11-24 13:59 | HHI.PR ---
Subjective Remarks Chronic abdominal pain stable. Still having diarrhea, 6-7 bowel movements a day. No overnight events Objective Vitals Vital Signs Date Time Temp Pulse Resp B/P (MAP) Pulse Ox O2 Delivery O2 Flow Rate FiO2 11/24/17 13:31 69 11/24/17 12:00 97.9 68 18 101/55 (70) 97 11/24/17 09:00 78 11/24/17 08:00 97.3 73 18 103/56 (72) 98 11/23/17 20:00 97.6 71 16 99/57 (71) 98 11/23/17 16:58 67 11/23/17 16:00 98.2 68 18 111/56 (74) 99 I/O 11/23/17 11/23/17 11/23/17 11/24/17 11/24/17 11/24/17 07:00 15:00 23:00 07:00 15:00 23:00 Intake Total 200 ml Balance 200 ml IV Total 200 ml # Voids 3 2 # Bowel Movements 0 Result Diagram: 11/24/17 0743 11/24/17 0743 Objective Remarks AAOx3 + jaundice and icteric sclera Lungs are clear to auscultation bilaterally. S1-S2 present with regular rate and rhythm, no murmur rubs or gallops. Abdomen is soft, mildly tender No edema Alert awake and oriented. Procedures central line placement. A/P Problem List: (1) Acute liver failure ICD Code: K72.00 - Acute and subacute hepatic failure without coma Status: Acute (2) Hyponatremia ICD Code: E87.1 - Hypo-osmolality and hyponatremia Status: Acute (3) Hypokalemia ICD Code: E87.6 - Hypokalemia Status: Acute (4) Chronic pancreatitis ICD Code: K86.1 - Other chronic pancreatitis Status: Acute (5) Alcohol abuse ICD Code: F10.10 - Alcohol abuse Status: Chronic (6) Hypomagnesemia ICD Code: E83.42 - Hypomagnesemia Status: Acute (7) Diabetes ICD Code: E11.9 - Type 2 diabetes mellitus without complications (8) Elevated LFTs ICD Code: R79.89 - Other specified abnormal findings of blood chemistry (9) Hyperammonemia ICD Code: E72.20 - Disorder of urea cycle metabolism, unspecified Assessment and Plan 1. Acute liver failure - Related to alcohol abuse. Counseled on alcohol cessation. Avoid hepatotoxic agents. Patient has been cleared for discharge from the GI standpoint. On rifaximin. Lactulose on hold, having excessive stools, recheck ammonia. TB increasing, continue to monitor liver function tests which have been trending down. Recheck LFTs tomorrow. (2) Hyponatremia-resolved Likely combination of hypovolemic hyponatremia and chronic alcohol use. (3)persistent Hypokalemia/ hypomagnesemia and hypophosphatemia- continue to replace aggressively, K good today, recheck Mg and phos tomorrow. Continue Aldactone. (4) Chronic pancreatitis - continue with Creon. (5) Alcohol abuse - Patient was extensively counseled about the detrimental effects of alcohol on his health. [facility] protocol to prevent withdrawal. (6) Diabetes mellitus unclear if type 1 vs 2 without complications, Noncompliant with insulin therapy. HgbA1c 9 in Aug 2017, on SSI, possibly acquired from chronic pancreatitis. (7) coagulopathy- improving. 8. Diarrhea -having 6 bowel movements a day, stop cholestyramine, stop magnesium oxide, continue potassium and magnesium. Recheck tomorrow. 9. Failure to thrive-continue Megace 8) DVT prophylaxis no intra-coagulation due to liver disease, -bilateral SCDs Discharge Planning Discharge once electrolyte abnormalities are replaced and diarrhea improved to [facility] Problem Qualifiers (1) Acute liver failure: Qualified Codes: K72.00 - Acute and subacute hepatic failure without coma (2) Chronic pancreatitis: Qualified Codes: K86.0 - Alcohol-induced chronic pancreatitis Kathrine Zurita MD November 24, 2017 13:59
[2017-11-25] VITALS (12 sets, daily range): BP systolic 101–139; BP diastolic 54–81; PULSE 66–86; RESP 18–19; TEMP 97.5–98.7; O2SAT 95–100
[2017-11-25] MEDS: POTASSIUM PHOSPHATE/SODIUM PHOSPHATE 250 MG TAB PO SCH (06:12)
[2017-11-25 07:38] LABS: INTERNATIONAL NORMALIZED RATIO 1.7 RATIO; PROTHROMBIN TIME - PATIENT 16.7 SEC (9.8-11.6)
[2017-11-25] MEDS: SODIUM CHLORIDE 0.9% FLUSH 10 ML FLUSH IV FLUSH SCH ×3 (07:45→22:23)
[2017-11-25] MEDS: INSULIN ASPART SUPPLEMENTAL SCALE SQ SCH ×4 (07:45→20:04)
[2017-11-25] MEDS: SPIRONOLACTONE 25 MG TAB PO SCH ×2 (07:46→17:55)
[2017-11-25] MEDS: CALCIUM CARBONATE 1.25 GM (CA 500 MG) TAB PO SCH ×2 (07:47→22:23)
[2017-11-25] MEDS: MEGESTROL ACETATE SUSP 400 MG/10 ML CUP PO SCH (07:47)
[2017-11-25] MEDS: THIAMINE HCL 100 MG TAB PO SCH (07:47)
[2017-11-25] MEDS: POTASSIUM CHLORIDE 20 MEQ CONTROLLED RELEASE TAB PO SCH ×3 (07:47→17:55)
[2017-11-25] MEDS: PARoxetine HCL 20 MG TAB PO SCH (07:47)
[2017-11-25] MEDS: PANTOPRAZOLE SOD 40 MG DELAYED RELEASE TAB PO SCH ×2 (07:47→22:23)
[2017-11-25] MEDS: RIFAXIMIN 550 MG TAB PO SCH ×2 (07:47→22:23)
[2017-11-25] MEDS: LIPASE/PROTEASE/AMYLASE (12,000/38,000/60,000) CAP PO SCH ×3 (07:52→17:55)
[2017-11-25 09:33] LABS: ALBUMIN 1.7 GM/DL (3.4-5.0); BICARBONATE 23.6 MEQ/L (21.0-32.0); CALCIUM 8.5 MG/DL (8.5-10.1); CREATININE 0.78 MG/DL (0.60-1.30); DIRECT BILIRUBIN ADULT 20.7 MG/DL (0.0-0.2); MAGNESIUM 1.1 MG/DL (1.5-2.5); PHOSPHORUS 3.3 MG/DL (2.5-4.9); TOTAL BILIRUBIN ADULT 24.7 MG/DL (0.2-1.0); TOTAL PROTEIN 5.3 GM/DL (6.4-8.2)
[2017-11-25] MEDS: MAGNESIUM SULFATE 1 GM PREMIX 100 ML IV SCH ×4 (10:05→23:29)
[2017-11-25] MEDS: POTASSIUM CHLOR 20 MEQ PREMIX 100 ML IV SCH ×3 (12:00→16:24)
--- NOTE | 2017-11-25 14:02 | HHI.PR ---
Subjective Remarks Follow-up for electrode abnormalities in liver failure Bilateral lower extremity swelling worse, abdominal distention allegedly worsening, abdominal pain stable. Potassium and magnesium are lower again today. Last bowel movements, 3 times a day, still loose and very soft. Objective Vitals Vital Signs Date Time Temp Pulse Resp B/P (MAP) Pulse Ox O2 Delivery O2 Flow Rate FiO2 11/25/17 13:57 73 11/25/17 12:00 97.5 76 18 106/60 (75) 95 11/25/17 08:37 83 11/25/17 08:00 98.7 86 18 101/63 (76) 96 11/25/17 04:00 98.2 77 18 112/65 (81) 98 11/25/17 04:00 71 11/25/17 00:05 83 11/25/17 00:00 97.6 78 18 115/60 (78) 100 11/24/17 20:01 73 11/24/17 20:00 98.2 74 18 104/64 (77) 97 11/24/17 17:37 71 11/24/17 16:00 97.8 71 16 105/59 (74) 99 I/O 11/24/17 11/24/17 11/24/17 11/25/17 11/25/17 11/25/17 06:59 14:59 22:59 06:59 14:59 22:59 Intake Total 200 ml Output Total 800 ml Balance -800 ml 200 ml IV Total 200 ml Output Urine Total 800 ml # Voids 2 1 2 # Bowel Movements 1 2 Result Diagram: 11/24/17 0743 11/25/17 0715 Objective Remarks AAOx3 + jaundice and icteric sclera Lungs are clear to auscultation bilaterally. S1-S2 present with regular rate and rhythm, no murmur rubs or gallops. Abdomen is soft, mildly tender 2+ edema. Alert awake and oriented. Procedures central line placement. A/P Problem List: (1) Acute liver failure ICD Code: K72.00 - Acute and subacute hepatic failure without coma Status: Acute (2) Hyponatremia ICD Code: E87.1 - Hypo-osmolality and hyponatremia Status: Acute (3) Hypokalemia ICD Code: E87.6 - Hypokalemia Status: Acute (4) Chronic pancreatitis ICD Code: K86.1 - Other chronic pancreatitis Status: Acute (5) Alcohol abuse ICD Code: F10.10 - Alcohol abuse Status: Chronic (6) Hypomagnesemia ICD Code: E83.42 - Hypomagnesemia Status: Acute (7) Diabetes ICD Code: E11.9 - Type 2 diabetes mellitus without complications (8) Elevated LFTs ICD Code: R79.89 - Other specified abnormal findings of blood chemistry (9) Hyperammonemia ICD Code: E72.20 - Disorder of urea cycle metabolism, unspecified Assessment and Plan 1. Acute liver failure - Related to alcohol abuse. Counseled on alcohol cessation. Avoid hepatotoxic agents. Patient has been cleared for discharge from the GI standpoint. On rifaximin. Lactulose on hold, having excessive stools, ammonia is mildly elevated but mental status is stable, no asterixis. TB increasing, continue to monitor liver function tests which have been trending down. Increasing lower extremity edema, increase Aldactone to 100 mg daily with holding parameters. Once potassium is better, will start Lasix. Check ultrasound of the abdomen for ascites and do paracentesis if needed. (2) Hyponatremia-resolved Likely combination of hypovolemic hyponatremia and chronic alcohol use. (3)persistent Hypokalemia/ hypomagnesemia and hypophosphatemia- continue to replace aggressively, will give IV potassium today and 2 g of magnesium. Stop phosphorus supplementation. Increase Aldactone. (4) Chronic pancreatitis - continue with Creon. (5) Alcohol abuse - Patient was extensively counseled about the detrimental effects of alcohol on his health. [facility] protocol to prevent withdrawal. (6) Diabetes mellitus unclear if type 1 vs 2 without complications, Noncompliant with insulin therapy. HgbA1c 9 in Aug 2017, on SSI, possibly acquired from chronic pancreatitis. (7) coagulopathy- improving. 8. Diarrhea -having 6 bowel movements a day, stop cholestyramine, stop magnesium oxide, continue potassium and magnesium. Start Imodium. 9. Failure to thrive-continue Megace 8) DVT prophylaxis no intra-coagulation due to liver disease, -bilateral SCDs Discharge Planning Discharge once electrolyte abnormalities are replaced and diarrhea improved to [facility] Problem Qualifiers (1) Acute liver failure: Qualified Codes: K72.00 - Acute and subacute hepatic failure without coma (2) Chronic pancreatitis: Qualified Codes: K86.0 - Alcohol-induced chronic pancreatitis Kathrine Zurita MD November 25, 2017 14:02
[2017-11-25] MEDS: LOPERAMIDE HCL 2 MG CAP PO PRN (14:15)
[2017-11-25 20:59] LABS: BICARBONATE 25.8 MEQ/L (21.0-32.0); CALCIUM 8.5 MG/DL (8.5-10.1); CREATININE 0.75 MG/DL (0.60-1.30); MAGNESIUM 1.4 MG/DL (1.5-2.5)
[2017-11-25] MEDS: MELATONIN 5 MG TAB PO PRN (22:22)
[2017-11-26] VITALS (9 sets, daily range): BP systolic 90–111; BP diastolic 58–73; PULSE 67–90; RESP 18–20; TEMP 97.4–98.8; O2SAT 97–100
[2017-11-26] MEDS ORDERED: POTASSIUM CHLOR 20 MEQ PREMIX 100 ML IV ONE
[2017-11-26] MEDS: POTASSIUM CHLORIDE 20 MEQ CONTROLLED RELEASE TAB PO SCH ×11 (00:34→18:23)
[2017-11-26 07:57] LABS: BICARBONATE 25.7 MEQ/L (21.0-32.0); CREATININE 0.73 MG/DL (0.60-1.30); MAGNESIUM 1.7 MG/DL (1.5-2.5); PHOSPHORUS 2.5 MG/DL (2.5-4.9)
[2017-11-26] MEDS: PANTOPRAZOLE SOD 40 MG DELAYED RELEASE TAB PO SCH ×2 (08:36→21:02)
[2017-11-26] MEDS: PARoxetine HCL 20 MG TAB PO SCH (08:36)
[2017-11-26] MEDS: RIFAXIMIN 550 MG TAB PO SCH ×2 (08:37→21:02)
[2017-11-26] MEDS: THIAMINE HCL 100 MG TAB PO SCH (08:37)
[2017-11-26] MEDS: LIPASE/PROTEASE/AMYLASE (12,000/38,000/60,000) CAP PO SCH ×3 (08:37→18:23)
[2017-11-26] MEDS: MEGESTROL ACETATE SUSP 400 MG/10 ML CUP PO SCH (08:38)
[2017-11-26] MEDS: CALCIUM CARBONATE 1.25 GM (CA 500 MG) TAB PO SCH ×2 (08:38→21:02)
[2017-11-26] MEDS: INSULIN ASPART SUPPLEMENTAL SCALE SQ SCH ×4 (08:39→22:29)
[2017-11-26] MEDS: SODIUM CHLORIDE 0.9% FLUSH 10 ML FLUSH IV FLUSH SCH ×3 (08:40→21:02)
[2017-11-26] MEDS: SPIRONOLACTONE 25 MG TAB PO SCH ×2 (08:40→18:24)
[2017-11-26] MEDS ORDERED: POTASSIUM CHLORIDE 10 MEQ CONTROLLED RELEASE TAB PO ONE (09:15)
--- NOTE | 2017-11-26 12:22 | HHI.NPPN ---
Subjective History of Present Illness 42-year-old male with a past medical history of chronic alcoholism and chronic liver disease, history of pancreatitis, diabetes mellitus, depression, who was admitted with nausea, vomiting and epigastric pain. I was called to see the patient because of low potassium and electrolyte disorder. The patient has history of hypokalemia in the past and his potassium has been low in the past. Additional Remarks Patient is alert, resting comfortable with no complaints. Review of Systems Gastrointestinal Gastrointestinal: Diarrhea Objective Data Data 11/26/17 11/27/17 19:00 07:00 # Bowel Movements 2 Vital Signs Date Time Temp Pulse Resp B/P (MAP) Pulse Ox O2 Delivery O2 Flow Rate FiO2 11/26/17 08:00 89 11/26/17 08:00 97.4 71 18 101/65 (77) 97 11/26/17 04:19 70 11/26/17 04:00 97.5 67 18 111/71 (84) 100 11/26/17 00:04 72 11/25/17 23:55 98.6 74 19 113/54 (73) 99 11/25/17 20:20 74 11/25/17 20:00 98.3 80 18 102/57 (72) 99 11/25/17 16:34 66 11/25/17 16:00 97.6 69 18 105/58 (74) 96 11/25/17 13:57 73 -: 11/24/17 0743 11/26/17 0528 Physical Exam General Appearance: No Acute Distress, Comfortable Eyes Eye Exam: Pupils Equal Throat Throat Exam: Oral Mucosa [place] & Moist Neck Neck Exam: Neck Supple Pulmonary Resp Exam: Breath Sounds Equal, No Distress Cardiology CV Exam: Regular, Normal Sinus Rhythm Gastrointestinal/Abdomen GI Exam: Soft, Non-Tender, Bowel Sounds Present, Distended Extremeties Extremities Exam: Trace Edema Neurologic Neuro Exam: Alert, Awake Psychiatric Psych Exam: Appropriate Responses Assessment/Plan Electrolyte Assessment: Hypokalemia Problem List: (1) Hypertension ICD Codes: I10 - Hypertension Status: Chronic (2) Alcohol intoxication ICD Codes: F10.129 - Alcohol abuse with intoxication, unspecified Status: Acute (3) Chronic pancreatitis ICD Codes: K86.1 - Other chronic pancreatitis Status: Acute (4) Acute liver failure ICD Codes: K72.00 - Acute and subacute hepatic failure without coma Status: Acute (5) Hypokalemia ICD Codes: E87.6 - Hypokalemia Status: Acute (6) Hyponatremia ICD Codes: E87.1 - Hypo-osmolality and hyponatremia Status: Acute Plan: Patient has high urine K in last urine test. Still serum K remain low, despite replacement. Magnesium also low off and on, now it is 1.7, after replacement. On Aldactone and the dose was increased to 100 mg BID. Repeat Urine K level. Continue replacement as needed. (7) Hypomagnesemia ICD Codes: E83.42 - Hypomagnesemia Status: Acute (8) Alcohol withdrawal ICD Codes: F10.239 - Alcohol withdrawal syndrome Status: Acute Problem Qualifiers (1) Hypertension: Qualified Codes: I10 - Essential (primary) hypertension (2) Chronic pancreatitis: Qualified Codes: K86.0 - Alcohol-induced chronic pancreatitis (3) Acute liver failure: Qualified Codes: K72.00 - Acute and subacute hepatic failure without coma (4) Alcohol withdrawal: Qualified Codes: F10.230 - Alcohol dependence with withdrawal, uncomplicated Merlin Vieira MD November 26, 2017 12:22
--- NOTE | 2017-11-26 16:29 | HHI.PR ---
Subjective Remarks No acute change or distress. Potassium remains low this morning at 2.5. Supplementation is changed to p.o. for better absorption. Patient will be started on an oral potassium supplement and this will be adjusted for control. Objective Vital Signs Date Time Temp Pulse Resp B/P (MAP) Pulse Ox O2 Delivery O2 Flow Rate FiO2 11/26/17 12:00 90 11/26/17 12:00 97.5 72 18 107/73 (84) 100 11/26/17 08:00 89 11/26/17 08:00 97.4 71 18 101/65 (77) 97 11/26/17 04:19 70 11/26/17 04:00 97.5 67 18 111/71 (84) 100 11/26/17 00:04 72 11/25/17 23:55 98.6 74 19 113/54 (73) 99 11/25/17 20:20 74 11/25/17 20:00 98.3 80 18 102/57 (72) 99 11/25/17 16:34 66 I/O 11/25/17 11/25/17 11/25/17 11/26/17 11/26/17 11/26/17 07:00 15:00 23:00 07:00 15:00 23:00 Intake Total 780 ml 200 ml 300 ml Balance 780 ml 200 ml 300 ml Intake Oral 480 ml IV Total 300 ml 200 ml 300 ml # Voids 2 1 1 1 # Bowel Movements 2 1 2 Result Diagram: 11/24/17 0743 11/26/17 1450 Objective Remarks GENERAL: NAD, A&Ox3 HEAD: Normocephalic. NECK: Supple, trachea midline. No lymphadenopathy. EYES: No scleral icterus. No injection or drainage. CARDIOVASCULAR: Regular rate and rhythm without murmurs, gallops, or rubs. RESPIRATORY: Breath sounds equal bilaterally. No accessory muscle use. GASTROINTESTINAL: Abdomen soft, non-tender, abdomen distended MUSCULOSKELETAL: No cyanosis, bilateral lower extremity edema. SKIN: Warm and dry. Jaundice. NEURO: No focal neurological deficitis. A/P Problem List: (1) Alcoholism ICD Code: F10.20 - Alcohol dependence, uncomplicated (2) End stage liver disease ICD Code: K72.90 - Hepatic failure, unspecified without coma (3) Acute liver failure ICD Code: K72.00 - Acute and subacute hepatic failure without coma Status: Acute (4) Transaminitis ICD Code: R74.0 - Nonspecific elevation of levels of transaminase and lactic acid dehydrogenase [LDH] (5) Hypophosphatemia ICD Code: E83.39 - Other disorders of phosphorus metabolism Assessment and Plan 42-year-old male admitted secondary to acute liver failure Acute liver failure Cirrhosis End-stage liver disease Related to alcohol abuse Continue to monitor LFTs Continue to monitor bilirubin Monitor ammonia level Aldactone to manage edema Hyponatremia Resolved Related to alcohol abuse Hyponatremia Monitor for recurrence Hypomagnesia Hypophosphatemia Follow levels Hypokalemia Continue p.o. supplementation Further replacements as needed Chronic pancreatitis Continue Creon Alcohol abuse history Patient recommended no longer to drink alcohol Diabetes mellitus type 2 Follow blood sugars Insulin sliding scale Diabetic diet Coagulopathy Improved Diarrhea Imodium Lactulose on hold Failure to thrive Continue Megace DVT prophylaxis SCDs Discharge Planning Electrolyte stability needed prior to discharge LONG-TERM discharge Problem Qualifiers (1) Acute liver failure: Qualified Codes: K72.00 - Acute and subacute hepatic failure without coma Fernando Mcgregor MD November 26, 2017 16:29
[2017-11-26] MEDS: LOPERAMIDE HCL 2 MG CAP PO PRN (18:23)
[2017-11-26] MEDS ORDERED: POTASSIUM CHLORIDE 10 MEQ CAP PO SCH (21:00)
[2017-11-27] VITALS (8 sets, daily range): BP systolic 99–125; BP diastolic 59–85; PULSE 67–82; RESP 18–20; TEMP 97.6–98.1; O2SAT 97–99
[2017-11-27 07:11] LABS: AUTOMATED NEUTROPHIL # 14.4 TH/MM3 (1.8-7.7); BASOPHIL # 0.2 TH/MM3 (0-0.2); BASOPHIL % 0.9 % (0.0-2.0); EOSINOPHIL # 0.4 TH/MM3 (0-0.4); HEMOGLOBIN 11.5 GM/DL (13.0-17.0); LYMPH % 15.3 % (9.0-44.0); LYMPHOCYTE # 2.9 TH/MM3 (1.0-4.8); MEAN CELL VOLUME 96.9 FL (80.0-100.0); MEAN CORPUSCULAR HEMOGLOBIN 31.9 PG (27.0-34.0); MEAN CORPUSCULAR HGB CONC 32.9 % (32.0-36.0); MONO % 6.9 % (0.0-8.0); MONOCYTE # 1.3 TH/MM3 (0-0.9); NEUT % 74.9 % (16.0-70.0); PLATELET COUNT 458 TH/MM3 (150-450); RED BLOOD COUNT 3.61 MIL/MM3 (4.50-5.90); WHITE BLOOD COUNT 19.2 TH/MM3 (4.0-11.0)
[2017-11-27 07:57] LABS: ALBUMIN 1.5 GM/DL (3.4-5.0); ALKALINE PHOSPHATASE 215 U/L (45-117); ALT (GPT) 21 U/L (12-78); AST (GOT) 105 U/L (15-37); BICARBONATE 24.7 MEQ/L (21.0-32.0); BLOOD UREA NITROGEN 7 MG/DL (7-18); CALCIUM 8.2 MG/DL (8.5-10.1); CHLORIDE 104 MEQ/L (98-107); GLOMERULAR FILTRATION RATE 125 ML/MIN (>89); GLUCOSE,RANDOM 117 MG/DL (74-106); MAGNESIUM 1.2 MG/DL (1.5-2.5); PHOSPHORUS 2.6 MG/DL (2.5-4.9); SODIUM (NA) 140 MEQ/L (136-145); TOTAL BILIRUBIN ADULT 22.6 MG/DL (0.2-1.0)
[2017-11-27 07:58] LABS: CREATININE 0.69 MG/DL (0.60-1.30); TOTAL PROTEIN 5.2 GM/DL (6.4-8.2)
[2017-11-27] MEDS: INSULIN ASPART SUPPLEMENTAL SCALE SQ SCH ×4 (08:00→23:56)
[2017-11-27] MEDS: SODIUM CHLORIDE 0.9% FLUSH 10 ML FLUSH IV FLUSH SCH ×3 (09:00→23:38)
[2017-11-27] MEDS ORDERED: POTASSIUM CHLORIDE 10 MEQ CONTROLLED RELEASE TAB PO ONE (09:00)
[2017-11-27] MEDS: PANTOPRAZOLE SOD 40 MG DELAYED RELEASE TAB PO SCH ×2 (09:42→23:39)
[2017-11-27] MEDS: THIAMINE HCL 100 MG TAB PO SCH (09:42)
[2017-11-27] MEDS: CALCIUM CARBONATE 1.25 GM (CA 500 MG) TAB PO SCH ×2 (09:42→23:38)
[2017-11-27] MEDS: RIFAXIMIN 550 MG TAB PO SCH ×2 (09:42→23:39)
[2017-11-27] MEDS: LIPASE/PROTEASE/AMYLASE (12,000/38,000/60,000) CAP PO SCH ×3 (09:42→18:18)
[2017-11-27] MEDS: POTASSIUM CHLORIDE 20 MEQ CONTROLLED RELEASE TAB PO SCH ×4 (09:43→23:39)
[2017-11-27] MEDS: PARoxetine HCL 20 MG TAB PO SCH (09:43)
[2017-11-27] MEDS: MEGESTROL ACETATE SUSP 400 MG/10 ML CUP PO SCH (09:47)
[2017-11-27] MEDS: SPIRONOLACTONE 25 MG TAB PO SCH ×2 (09:47→18:17)
--- NOTE | 2017-11-27 10:21 | HHI.PR ---
Subjective Remarks No acute change or distress. Potassium remains low this morning at 2.6. Patient is not yet stable for discharge with this pattern. Extra dosing provided and if stable at noon will consider readjusting dosing regime. Objective Vital Signs Date Time Temp Pulse Resp B/P (MAP) Pulse Ox O2 Delivery O2 Flow Rate FiO2 11/27/17 08:00 98.0 80 18 115/77 (90) 97 11/27/17 04:40 98.0 74 20 125/85 (98) 99 11/27/17 00:15 97.6 67 19 99/59 (72) 97 11/26/17 23:00 67 11/26/17 21:30 98.8 68 20 101/58 (72) 98 11/26/17 17:39 70 11/26/17 16:00 97.5 74 18 90/61 (71) 98 11/26/17 12:00 90 11/26/17 12:00 97.5 72 18 107/73 (84) 100 I/O 11/26/17 11/26/17 11/26/17 11/27/17 11/27/17 11/27/17 07:00 15:00 23:00 07:00 15:00 23:00 Intake Total 300 ml 450 ml 450 ml Output Total 0 ml Balance 300 ml 450 ml 450 ml Intake Oral 450 ml 450 ml IV Total 300 ml Output Urine Total 0 ml # Voids 1 1 6 2 # Bowel Movements 2 4 1 Result Diagram: 11/27/17 0615 11/27/17 0615 Objective Remarks GENERAL: NAD, A&Ox3 HEAD: Normocephalic. NECK: Supple, trachea midline. No lymphadenopathy. EYES: No scleral icterus. No injection or drainage. CARDIOVASCULAR: Regular rate and rhythm without murmurs, gallops, or rubs. RESPIRATORY: Breath sounds equal bilaterally. No accessory muscle use. GASTROINTESTINAL: Abdomen soft, non-tender, abdomen distended MUSCULOSKELETAL: No cyanosis, bilateral lower extremity edema. SKIN: Warm and dry. Jaundice. NEURO: No focal neurological deficitis. A/P Problem List: (1) Alcoholism ICD Code: F10.20 - Alcohol dependence, uncomplicated (2) End stage liver disease ICD Code: K72.90 - Hepatic failure, unspecified without coma (3) Acute liver failure ICD Code: K72.00 - Acute and subacute hepatic failure without coma Status: Acute (4) Transaminitis ICD Code: R74.0 - Nonspecific elevation of levels of transaminase and lactic acid dehydrogenase [LDH] (5) Hypophosphatemia ICD Code: E83.39 - Other disorders of phosphorus metabolism Assessment and Plan 42-year-old male admitted secondary to acute liver failure Unstable potassium levels. Continue supplementation of 60 mEq every 8 hours for now. 30 mEq extra provided. Yesterday that improved the patient's potassium level. He may need extra dosing. We will consider 6 mEq every 6 hours based on noontime recheck of potassium. Acute liver failure Cirrhosis End-stage liver disease Related to alcohol abuse Continue to monitor LFTs Continue to monitor bilirubin Monitor ammonia level Aldactone to manage edema Hyponatremia Resolved Related to alcohol abuse Hyponatremia Monitor for recurrence Hypomagnesia Hypophosphatemia Follow levels Hypokalemia Continue p.o. supplementation Further replacements as needed Chronic pancreatitis Continue Creon Alcohol abuse history Patient recommended no longer to drink alcohol Diabetes mellitus type 2 Follow blood sugars Insulin sliding scale Diabetic diet Coagulopathy Improved Diarrhea Imodium Lactulose on hold Failure to thrive Continue Megace DVT prophylaxis SCDs Discharge Planning Electrolyte stability needed prior to discharge [facility] discharge Problem Qualifiers (1) Acute liver failure: Qualified Codes: K72.00 - Acute and subacute hepatic failure without coma Fernando Mcgregor MD November 27, 2017 10:21
--- NOTE | 2017-11-27 10:29 | HHI.NPPN ---
Subjective History of Present Illness 42-year-old male with a past medical history of chronic alcoholism and chronic liver disease, history of pancreatitis, diabetes mellitus, depression, who was admitted with nausea, vomiting and epigastric pain. I was called to see the patient because of low potassium and electrolyte disorder. The patient has history of hypokalemia in the past and his potassium has been low in the past. Additional Remarks Patient is alert, resting comfortable with no complaints. (Megha Del Cid) Review of Systems Gastrointestinal Gastrointestinal: Diarrhea (Megha Del Cid) Objective Data Data Vital Signs Date Time Temp Pulse Resp B/P (MAP) Pulse Ox O2 Delivery O2 Flow Rate FiO2 11/27/17 08:00 98.0 80 18 115/77 (90) 97 11/27/17 04:40 98.0 74 20 125/85 (98) 99 11/27/17 00:15 97.6 67 19 99/59 (72) 97 11/26/17 23:00 67 11/26/17 21:30 98.8 68 20 101/58 (72) 98 11/26/17 17:39 70 11/26/17 16:00 97.5 74 18 90/61 (71) 98 11/26/17 12:00 90 11/26/17 12:00 97.5 72 18 107/73 (84) 100 (Megha Del Cid) -: 11/27/17 0615 11/27/17 0615 Physical Exam General Appearance: No Acute Distress, Comfortable (Megha Del Cid) Eyes Eye Exam: Pupils Equal (Megha Del Cid) Throat Throat Exam: Oral Mucosa [place] & Moist (Megha Del Cid) Neck Neck Exam: Neck Supple (Megha Del Cid) Pulmonary Resp Exam: Breath Sounds Equal, No Distress (Megha Del Cid) Cardiology CV Exam: Regular, Normal Sinus Rhythm (Megha Del Cid) Gastrointestinal/Abdomen GI Exam: Soft, Non-Tender, Bowel Sounds Present, Distended (Megha Del Cid) Extremeties Extremities Exam: Trace Edema (Megha Del Cid) Neurologic Neuro Exam: Alert, Awake (Megha Del Cid) Psychiatric Psych Exam: Appropriate Responses (Megha Del Cid) Assessment/Plan Electrolyte Assessment: Hypokalemia Problem List: (1) Hypertension ICD Codes: I10 - Hypertension Status: Chronic (2) Alcohol intoxication ICD Codes: F10.129 - Alcohol abuse with intoxication, unspecified Status: Acute (3) Chronic pancreatitis ICD Codes: K86.1 - Other chronic pancreatitis Status: Acute (4) Acute liver failure ICD Codes: K72.00 - Acute and subacute hepatic failure without coma Status: Acute (5) Hypokalemia ICD Codes: E87.6 - Hypokalemia Status: Acute (6) Hyponatremia ICD Codes: E87.1 - Hypo-osmolality and hyponatremia Status: Acute Plan: Patient has high urine K in last urine test. Still serum K remain low, despite replacement. Repeat urine K level remains high. Aldactone dose was increased to 100 mg BID. Continue replacement as needed. Magnesium level at 1.2 replacement IV added today. Potassium at 2.6 on scheduled and extra replacement given (7) Hypomagnesemia ICD Codes: E83.42 - Hypomagnesemia Status: Acute (8) Alcohol withdrawal ICD Codes: F10.239 - Alcohol withdrawal syndrome Status: Acute (Megha Del Cid) Problem List: (1) Hypertension ICD Codes: I10 - Hypertension Status: Chronic (2) Alcohol intoxication ICD Codes: F10.129 - Alcohol abuse with intoxication, unspecified Status: Acute (3) Chronic pancreatitis ICD Codes: K86.1 - Other chronic pancreatitis Status: Acute (4) Acute liver failure ICD Codes: K72.00 - Acute and subacute hepatic failure without coma Status: Acute (5) Hypokalemia ICD Codes: E87.6 - Hypokalemia Status: Acute (6) Hyponatremia ICD Codes: E87.1 - Hypo-osmolality and hyponatremia Status: Acute Plan: Patient has high urine K in last urine test. Still serum K remain low, despite replacement. Repeat urine K level remains high. Aldactone dose was increased to 100 mg BID. Continue replacement as needed. Magnesium level at 1.2 replacement IV added today. Potassium at 2.6 on scheduled and extra replacement given. Patient seen and examined, agree with above. Continue replacement, and follow K and Mg. (7) Hypomagnesemia ICD Codes: E83.42 - Hypomagnesemia Status: Acute (8) Alcohol withdrawal ICD Codes: F10.239 - Alcohol withdrawal syndrome Status: Acute (Merlin Vieira MD) Problem Qualifiers (1) Hypertension: Qualified Codes: I10 - Essential (primary) hypertension (2) Chronic pancreatitis: Qualified Codes: K86.0 - Alcohol-induced chronic pancreatitis (3) Acute liver failure: Qualified Codes: K72.00 - Acute and subacute hepatic failure without coma (4) Alcohol withdrawal: Qualified Codes: F10.230 - Alcohol dependence with withdrawal, uncomplicated Megha Del Cid November 27, 2017 10:28 Merlin Vieira MD November 28, 2017 21:17
[2017-11-27] MEDS: MAGNESIUM SULFATE 1 GM PREMIX 100 ML IV SCH ×2 (11:21→13:14)
[2017-11-27] MEDS ORDERED: methylPREDNISolone SOD SUCC 40 MG/1 ML VIAL IV PUSH ONE (14:45)
[2017-11-27] MEDS: methylPREDNISolone SOD SUCC 40 MG/1 ML VIAL IV PUSH SCH (23:38)
[2017-11-28] VITALS (10 sets, daily range): BP systolic 108–126; BP diastolic 67–82; PULSE 67–84; RESP 18–20; TEMP 97.3–98.3; O2SAT 96–99
[2017-11-28] MEDS: POTASSIUM CHLORIDE 20 MEQ CONTROLLED RELEASE TAB PO SCH ×3 (05:18→17:40)
[2017-11-28 08:26] LABS: BASOPHIL % 0.2 % (0.0-2.0); HEMATOCRIT 33.4 % (39.0-51.0); LYMPH % 6.7 % (9.0-44.0); LYMPHOCYTE # 1.3 TH/MM3 (1.0-4.8); MEAN CELL VOLUME 98.3 FL (80.0-100.0); MEAN CORPUSCULAR HEMOGLOBIN 32.3 PG (27.0-34.0); MEAN CORPUSCULAR HGB CONC 32.9 % (32.0-36.0); MEAN PLATELET VOLUME 7.9 FL (7.0-11.0); MONO % 2.2 % (0.0-8.0); MONOCYTE # 0.4 TH/MM3 (0-0.9); NEUT % 90.9 % (16.0-70.0); PLATELET COUNT 425 TH/MM3 (150-450); RED BLOOD COUNT 3.39 MIL/MM3 (4.50-5.90); RED CELL DISTRIBUTION WIDTH 14.5 % (11.6-17.2); WHITE BLOOD COUNT 19.8 TH/MM3 (4.0-11.0)
[2017-11-28] MEDS: PARoxetine HCL 20 MG TAB PO SCH (08:59)
[2017-11-28] MEDS: THIAMINE HCL 100 MG TAB PO SCH (08:59)
[2017-11-28] MEDS: PANTOPRAZOLE SOD 40 MG DELAYED RELEASE TAB PO SCH ×2 (08:59→21:38)
[2017-11-28] MEDS: LIPASE/PROTEASE/AMYLASE (12,000/38,000/60,000) CAP PO SCH ×3 (08:59→17:40)
[2017-11-28] MEDS: CALCIUM CARBONATE 1.25 GM (CA 500 MG) TAB PO SCH ×2 (08:59→21:38)
[2017-11-28] MEDS: RIFAXIMIN 550 MG TAB PO SCH ×2 (08:59→21:38)
[2017-11-28] MEDS: MEGESTROL ACETATE SUSP 400 MG/10 ML CUP PO SCH (09:00)
[2017-11-28] MEDS: SODIUM CHLORIDE 0.9% FLUSH 10 ML FLUSH IV FLUSH SCH ×3 (09:00→21:41)
[2017-11-28] MEDS: SPIRONOLACTONE 25 MG TAB PO SCH ×2 (09:00→17:40)
[2017-11-28] MEDS: methylPREDNISolone SOD SUCC 40 MG/1 ML VIAL IV PUSH SCH ×2 (09:00→21:38)
[2017-11-28 09:07] LABS: ALBUMIN 1.4 GM/DL (3.4-5.0); ALKALINE PHOSPHATASE 205 U/L (45-117); ALT (GPT) 19 U/L (12-78); AST (GOT) 67 U/L (15-37); BLOOD UREA NITROGEN 10 MG/DL (7-18); CALCIUM 7.9 MG/DL (8.5-10.1); CHLORIDE 103 MEQ/L (98-107); CREATININE 0.79 MG/DL (0.60-1.30); GLOMERULAR FILTRATION RATE 107 ML/MIN (>89); GLUCOSE,RANDOM 328 MG/DL (74-106); SODIUM (NA) 136 MEQ/L (136-145); TOTAL BILIRUBIN ADULT 20.9 MG/DL (0.2-1.0); TOTAL PROTEIN 4.9 GM/DL (6.4-8.2)
[2017-11-28] MEDS: INSULIN ASPART SUPPLEMENTAL SCALE SQ SCH ×4 (09:07→21:48)
[2017-11-28] MEDS ORDERED: GLUCAGON 1 MG/ML VIAL OTHER PRN (09:30)
[2017-11-28] MEDS ORDERED: DEXTROSE 50% IN WATER 50 ML VIAL(D50) IV PUSH PRN (09:30)
--- NOTE | 2017-11-28 10:15 | HHI.PR ---
Subjective Remarks Potassium is 3.4 this morning. This comes after adjusting potassium dosing to every 6 hours and adding a steroid. Patient has no new complaints. Blood sugars are elevated. Objective Vital Signs Date Time Temp Pulse Resp B/P (MAP) Pulse Ox O2 Delivery O2 Flow Rate FiO2 11/28/17 08:10 97.6 70 19 123/82 (96) 99 11/28/17 04:00 98.1 67 20 110/74 (86) 96 11/28/17 00:00 98.3 70 20 108/67 (81) 98 11/27/17 23:00 72 11/27/17 20:00 97.8 73 20 117/76 (90) 98 11/27/17 16:28 69 11/27/17 16:00 97.7 78 18 125/78 (94) 99 11/27/17 12:00 78 11/27/17 12:00 98.1 76 18 111/74 (86) 99 I/O 11/27/17 11/27/17 11/27/17 11/28/17 11/28/17 11/28/17 07:00 15:00 23:00 07:00 15:00 23:00 Intake Total 450 ml 200 ml 840 ml Balance 450 ml 200 ml 840 ml Intake Oral 450 ml 840 ml IV Total 200 ml # Voids 2 2 # Bowel Movements 1 1 Result Diagram: 11/28/17 0751 11/28/17 0751 Objective Remarks GENERAL: NAD, A&Ox3 HEAD: Normocephalic. NECK: Supple, trachea midline. No lymphadenopathy. EYES: No scleral icterus. No injection or drainage. CARDIOVASCULAR: Regular rate and rhythm without murmurs, gallops, or rubs. RESPIRATORY: Breath sounds equal bilaterally. No accessory muscle use. GASTROINTESTINAL: Abdomen soft, non-tender, abdomen distended MUSCULOSKELETAL: No cyanosis, bilateral lower extremity edema. SKIN: Warm and dry. Jaundice. NEURO: No focal neurological deficitis. A/P Problem List: (1) Alcoholism ICD Code: F10.20 - Alcohol dependence, uncomplicated (2) End stage liver disease ICD Code: K72.90 - Hepatic failure, unspecified without coma (3) Acute liver failure ICD Code: K72.00 - Acute and subacute hepatic failure without coma Status: Acute (4) Transaminitis ICD Code: R74.0 - Nonspecific elevation of levels of transaminase and lactic acid dehydrogenase [LDH] (5) Hypophosphatemia ICD Code: E83.39 - Other disorders of phosphorus metabolism Assessment and Plan 42-year-old male admitted secondary to acute liver failure Improved potassium control with addition of steroid and increased frequency of potassium supplementation. Patient has no complaints today. Blood sugar elevated and insulin running scale added for coverage of this. Hyperglycemia Follow blood sugars Insulin sliding scale Acute liver failure Cirrhosis End-stage liver disease Related to alcohol abuse Continue to monitor LFTs Continue to monitor bilirubin Monitor ammonia level Aldactone to manage edema Hyponatremia Resolved Related to alcohol abuse Hyponatremia Monitor for recurrence Hypomagnesia Hypophosphatemia Follow levels Hypokalemia Continue p.o. supplementation Further replacements as needed Chronic pancreatitis Continue Creon Alcohol abuse history Patient recommended no longer to drink alcohol Diabetes mellitus type 2 Follow blood sugars Insulin sliding scale Diabetic diet Coagulopathy Improved Diarrhea Imodium Lactulose on hold Failure to thrive Continue Megace DVT prophylaxis SCDs Discharge Planning Electrolyte stability needed prior to discharge [facility] discharge Problem Qualifiers (1) Acute liver failure: Qualified Codes: K72.00 - Acute and subacute hepatic failure without coma Fernando Mcgregor MD November 28, 2017 10:15
--- NOTE | 2017-11-28 10:33 | HHI.NPPN ---
Subjective History of Present Illness 42-year-old male with a past medical history of chronic alcoholism and chronic liver disease, history of pancreatitis, diabetes mellitus, depression, who was admitted with nausea, vomiting and epigastric pain. I was called to see the patient because of low potassium and electrolyte disorder. The patient has history of hypokalemia in the past and his potassium has been low in the past. Additional Remarks Patient is alert, complaining of upper abdominal discomfort (Megha Del Cid) Review of Systems Gastrointestinal Gastrointestinal: Abdominal Pain, Diarrhea (Megha Del Cid) Objective Data Data Vital Signs Date Time Temp Pulse Resp B/P (MAP) Pulse Ox O2 Delivery O2 Flow Rate FiO2 11/28/17 08:10 97.6 70 19 123/82 (96) 99 11/28/17 04:00 98.1 67 20 110/74 (86) 96 11/28/17 00:00 98.3 70 20 108/67 (81) 98 11/27/17 23:00 72 11/27/17 20:00 97.8 73 20 117/76 (90) 98 11/27/17 16:28 69 11/27/17 16:00 97.7 78 18 125/78 (94) 99 11/27/17 12:00 78 11/27/17 12:00 98.1 76 18 111/74 (86) 99 (Megha Del Cid) -: 11/28/17 0751 11/28/17 0751 Physical Exam General Appearance: No Acute Distress, Comfortable (Megha Del Cid) Eyes Eye Exam: Pupils Equal (Megah Del Cid) Throat Throat Exam: Oral Mucosa [place] & Moist (Megha Del Cid) Neck Neck Exam: Neck Supple (Megha Del Cid) Pulmonary Resp Exam: Breath Sounds Equal, No Distress (Megha Del Cid) Cardiology CV Exam: Regular, Normal Sinus Rhythm (Megha Del Cid) Gastrointestinal/Abdomen GI Exam: Soft, Non-Tender, Bowel Sounds Present, Distended (Megha Del Cid) Extremeties Extremities Exam: Trace Edema (Megha Del Cid) Neurologic Neuro Exam: Alert, Awake (Megha Del Cid) Psychiatric Psych Exam: Appropriate Responses (Megha Del Cid) Assessment/Plan Electrolyte Assessment: Hypokalemia Problem List: (1) Hypertension ICD Codes: I10 - Hypertension Status: Chronic Plan: well controlled (2) Alcohol intoxication ICD Codes: F10.129 - Alcohol abuse with intoxication, unspecified Status: Acute (3) Chronic pancreatitis ICD Codes: K86.1 - Other chronic pancreatitis Status: Acute (4) Acute liver failure ICD Codes: K72.00 - Acute and subacute hepatic failure without coma Status: Acute (5) Hypokalemia ICD Codes: E87.6 - Hypokalemia Status: Acute Plan: Potassium at 3.4 today on scheduled replacement Repeat urine K level remains high. Aldactone dose was increased to 100 mg BID on Sunday Continue replacement as needed. labs in AM (6) Hyponatremia ICD Codes: E87.1 - Hypo-osmolality and hyponatremia Status: Acute Plan: Resolved (7) Hypomagnesemia ICD Codes: E83.42 - Hypomagnesemia Status: Acute Plan: Recheck in AM (8) Alcohol withdrawal ICD Codes: F10.239 - Alcohol withdrawal syndrome Status: Acute (Megha Del Cid) Problem List: (1) Hypertension ICD Codes: I10 - Hypertension Status: Chronic Plan: well controlled (2) Alcohol intoxication ICD Codes: F10.129 - Alcohol abuse with intoxication, unspecified Status: Acute (3) Chronic pancreatitis ICD Codes: K86.1 - Other chronic pancreatitis Status: Acute (4) Acute liver failure ICD Codes: K72.00 - Acute and subacute hepatic failure without coma Status: Acute (5) Hypokalemia ICD Codes: E87.6 - Hypokalemia Status: Acute Plan: Potassium at 3.4 today on scheduled replacement Repeat urine K level remains high. Aldactone dose was increased to 100 mg BID on Sunday Continue replacement as needed. labs in AM Patient seen and examined, agree with above. K is better, on high dose Aldactone. (6) Hyponatremia ICD Codes: E87.1 - Hypo-osmolality and hyponatremia Status: Acute Plan: Resolved (7) Hypomagnesemia ICD Codes: E83.42 - Hypomagnesemia Status: Acute Plan: Recheck in AM (8) Alcohol withdrawal ICD Codes: F10.239 - Alcohol withdrawal syndrome Status: Acute (Merlin Vieira MD) Problem Qualifiers (1) Hypertension: Qualified Codes: I10 - Essential (primary) hypertension (2) Chronic pancreatitis: Qualified Codes: K86.0 - Alcohol-induced chronic pancreatitis (3) Acute liver failure: Qualified Codes: K72.00 - Acute and subacute hepatic failure without coma (4) Alcohol withdrawal: Qualified Codes: F10.230 - Alcohol dependence with withdrawal, uncomplicated Megha Del Cid November 28, 2017 10:33 Merlin Vieira MD November 28, 2017 21:24
[2017-11-29] VITALS (8 sets, daily range): BP systolic 107–117; BP diastolic 61–80; PULSE 66–85; RESP 18; TEMP 97.4–98.3; O2SAT 96–99
[2017-11-29] MEDS: POTASSIUM CHLORIDE 20 MEQ CONTROLLED RELEASE TAB PO SCH ×4 (00:33→15:33)
[2017-11-29 05:10] LABS: AUTOMATED NEUTROPHIL # 22.9 TH/MM3 (1.8-7.7); BASOPHIL # 0.1 TH/MM3 (0-0.2); BASOPHIL % 0.3 % (0.0-2.0); HEMATOCRIT 33.3 % (39.0-51.0); HEMOGLOBIN 11.1 GM/DL (13.0-17.0); LYMPH % 9.1 % (9.0-44.0); LYMPHOCYTE # 2.4 TH/MM3 (1.0-4.8); MEAN CELL VOLUME 96.4 FL (80.0-100.0); MEAN CORPUSCULAR HGB CONC 33.2 % (32.0-36.0); MEAN PLATELET VOLUME 7.8 FL (7.0-11.0); MONO % 3.3 % (0.0-8.0); MONOCYTE # 0.9 TH/MM3 (0-0.9); NEUT % 87.3 % (16.0-70.0); PLATELET COUNT 512 TH/MM3 (150-450); RED BLOOD COUNT 3.46 MIL/MM3 (4.50-5.90); RED CELL DISTRIBUTION WIDTH 13.9 % (11.6-17.2); WHITE BLOOD COUNT 26.3 TH/MM3 (4.0-11.0)
[2017-11-29 05:27] LABS: ALT (GPT) 20 U/L (12-78)
[2017-11-29 05:37] LABS: ALBUMIN 1.6 GM/DL (3.4-5.0); ALKALINE PHOSPHATASE 216 U/L (45-117); AST (GOT) 46 U/L (15-37); BICARBONATE 23.9 MEQ/L (21.0-32.0); BLOOD UREA NITROGEN 14 MG/DL (7-18); CALCIUM 7.8 MG/DL (8.5-10.1); CHLORIDE 103 MEQ/L (98-107); CREATININE 0.95 MG/DL (0.60-1.30); GLOMERULAR FILTRATION RATE 87 ML/MIN (>89); GLUCOSE,RANDOM 323 MG/DL (74-106); MAGNESIUM 1.1 MG/DL (1.5-2.5); SODIUM (NA) 137 MEQ/L (136-145); TOTAL PROTEIN 5.3 GM/DL (6.4-8.2)
[2017-11-29 05:38] LABS: TOTAL BILIRUBIN ADULT 20.4 MG/DL (0.2-1.0)
[2017-11-29] MEDS: THIAMINE HCL 100 MG TAB PO SCH (08:44)
[2017-11-29] MEDS: CALCIUM CARBONATE 1.25 GM (CA 500 MG) TAB PO SCH ×2 (08:45→21:33)
[2017-11-29] MEDS: RIFAXIMIN 550 MG TAB PO SCH ×2 (08:45→21:33)
[2017-11-29] MEDS: PANTOPRAZOLE SOD 40 MG DELAYED RELEASE TAB PO SCH ×2 (08:45→21:32)
[2017-11-29] MEDS: LIPASE/PROTEASE/AMYLASE (12,000/38,000/60,000) CAP PO SCH ×3 (08:45→17:36)
[2017-11-29] MEDS: MEGESTROL ACETATE SUSP 400 MG/10 ML CUP PO SCH (08:45)
[2017-11-29] MEDS: PARoxetine HCL 20 MG TAB PO SCH (08:45)
[2017-11-29] MEDS: SPIRONOLACTONE 25 MG TAB PO SCH ×2 (08:45→17:36)
[2017-11-29] MEDS: methylPREDNISolone SOD SUCC 40 MG/1 ML VIAL IV PUSH SCH ×2 (08:45→21:33)
[2017-11-29] MEDS: INSULIN ASPART SUPPLEMENTAL SCALE SQ SCH ×4 (08:51→21:48)
[2017-11-29] MEDS: SODIUM CHLORIDE 0.9% FLUSH 10 ML FLUSH IV FLUSH SCH ×3 (08:51→21:33)
--- NOTE | 2017-11-29 10:31 | HHI.NPPN ---
Subjective History of Present Illness 42-year-old male with a past medical history of chronic alcoholism and chronic liver disease, history of pancreatitis, diabetes mellitus, depression, who was admitted with nausea, vomiting and epigastric pain. I was called to see the patient because of low potassium and electrolyte disorder. The patient has history of hypokalemia in the past and his potassium has been low in the past. Additional Remarks No acute complaints. Potassium level has improved at 4.1 today. (Megha Del Cid) Review of Systems Gastrointestinal Gastrointestinal: Abdominal Pain, Diarrhea (Megha Del Cid) Objective Data Data Vital Signs Date Time Temp Pulse Resp B/P (MAP) Pulse Ox O2 Delivery O2 Flow Rate FiO2 11/29/17 07:35 98.3 80 18 115/74 (88) 97 11/29/17 04:30 66 11/29/17 04:00 97.9 68 18 116/74 (88) 97 11/29/17 00:30 72 11/29/17 00:00 97.4 71 18 110/61 (77) 98 11/28/17 20:30 75 11/28/17 20:00 97.3 84 18 126/79 (95) 97 11/28/17 17:35 74 11/28/17 16:26 97.9 73 19 112/71 (85) 97 11/28/17 12:28 97.8 71 19 110/69 (83) 98 11/28/17 12:00 70 (Megha Del Cid) -: 11/29/17 0435 11/29/17 0435 Imaging Last Impressions Upper Extremity Ultrasound 11/20/17 0000 Signed Impressions: CONCLUSION: 1. No evidence of DVT. Central Venous Line 11/08/17 0000 Signed Impressions: Service Date/Time: October 11:47 - CONCLUSION: Uncomplicated line placement as above. Merlin Monteiro MD Abdomen/Pelvis CT 11/06/17 1137 Signed Impressions: Service Date/Time: Monday, November 06, 2017 14:50 - CONCLUSION: 1. Findings of chronic pancreatitis with calcifications in the head and uncinate process, dilation of the pancreatic duct and marked atrophy of the mid body and tail. 2. Diffuse hepatic fatty infiltration. No focal mass lesions. 3. Findings of portal hypertension with a portosystemic shunt emanating from the origin of the portal vein and draining into the left renal vein. 4. Cholelithiasis [facility]lin Monteiro [facility] Physical Exam General Appearance: No Acute Distress, Comfortable (GellerMgeha goldman M. SUPPORT TECHNICIAN) Eyes Eye Exam: Pupils Equal ([facility] SUPPORT TECHNICIAN) Throat Throat Exam: Oral Mucosa [place] & Moist ([facility]. SUPPORT TECHNICIAN) Neck Neck Exam: Neck Supple ([facility] M. SUPPORT TECHNICIAN) Pulmonary Resp Exam: Breath Sounds Equal, No Distress ([facility] SUPPORT TECHNICIAN) Cardiology CV Exam: Regular, Normal Sinus Rhythm ([facility] goldman. SUPPORT TECHNICIAN) Gastrointestinal/Abdomen GI Exam: Soft, Non-Tender, Bowel Sounds Present, Distended (ToddlerMegha goldman. SUPPORT TECHNICIAN) Extremeties Extremities Exam: Trace Edema ([facility] gold[facility] . SUPPORT TECHNICIAN) Neurologic Neuro Exam: Alert, Awake ([facility] SUPPORT TECHNICIAN) Psychiatric Psych Exam: Appropriate Responses ([facility]) Assessment/Plan Electrolyte Assessment: Hypokalemia Problem List: (1) Hypertension ICD Codes: I10 - Hypertension Status: Chronic Plan: well controlled (2) Alcohol intoxication ICD Codes: F10.129 - Alcohol abuse with intoxication, unspecified Status: Acute (3) Chronic pancreatitis ICD Codes: K86.1 - Other chronic pancreatitis Status: Acute (4) Acute liver failure ICD Codes: K72.00 - Acute and subacute hepatic failure without coma Status: Acute (5) Hypokalemia ICD Codes: E87.6 - Hypokalemia Status: Acute Plan: Potassium at 4.1 today on scheduled replacement which has been decreased Repeat urine K level remains high. Aldactone dose was increased to 100 mg BID on Sunday with improvement in potassium Continue replacement as needed. labs in AM (6) Hyponatremia ICD Codes: E87.1 - Hypo-osmolality and hyponatremia Status: Acute Plan: Resolved (7) Hypomagnesemia ICD Codes: E83.42 - Hypomagnesemia Status: Acute Plan: continues to be low at 1.1 Oral replacement has been discontinue secondary to loose stools Will order IV today and order lower dose oral replacement to see if patient tolerates. (8) Alcohol withdrawal ICD Codes: F10.239 - Alcohol withdrawal syndrome Status: Acute (Megha Del Cid) Problem List: (1) Hypertension ICD Codes: I10 - Hypertension Status: Chronic Plan: well controlled (2) Alcohol intoxication ICD Codes: F10.129 - Alcohol abuse with intoxication, unspecified Status: Acute (3) Chronic pancreatitis ICD Codes: K86.1 - Other chronic pancreatitis Status: Acute (4) Acute liver failure ICD Codes: K72.00 - Acute and subacute hepatic failure without coma Status: Acute (5) Hypokalemia ICD Codes: E87.6 - Hypokalemia Status: Acute Plan: Potassium at 4.1 today on scheduled replacement which has been decreased Repeat urine K level remains high. Aldactone dose was increased to 100 mg BID on Sunday with improvement in potassium Continue replacement as needed. labs in AM. Patient seen and examined, agree with above. K is better, getting Magnesium, can be discharged from Nephrology. (6) Hyponatremia ICD Codes: E87.1 - Hypo-osmolality and hyponatremia Status: Acute Plan: Resolved (7) Hypomagnesemia ICD Codes: E83.42 - Hypomagnesemia Status: Acute Plan: continues to be low at 1.1 Oral replacement has been discontinue secondary to loose stools Will order IV today and order lower dose oral replacement to see if patient tolerates. (8) Alcohol withdrawal ICD Codes: F10.239 - Alcohol withdrawal syndrome Status: Acute (Merlin Vieira MD) Problem Qualifiers (1) Hypertension: Qualified Codes: I10 - Essential (primary) hypertension (2) Chronic pancreatitis: Qualified Codes: K86.0 - Alcohol-induced chronic pancreatitis (3) Acute liver failure: Qualified Codes: K72.00 - Acute and subacute hepatic failure without coma (4) Alcohol withdrawal: Qualified Codes: F10.230 - Alcohol dependence with withdrawal, uncomplicated Megha Del Cid November 29, 2017 10:31 Merlin Vieira MD November 29, 2017 12:42
--- NOTE | 2017-11-29 11:20 | HHI.PR ---
Subjective Remarks Potassium level is 4.1 now. Improving stability may be related to Aldactone versus steroids or both. Patient has no new complaints. Objective Vital Signs Date Time Temp Pulse Resp B/P (MAP) Pulse Ox O2 Delivery O2 Flow Rate FiO2 11/29/17 07:35 98.3 80 18 115/74 (88) 97 11/29/17 04:30 66 11/29/17 04:00 97.9 68 18 116/74 (88) 97 11/29/17 00:30 72 11/29/17 00:00 97.4 71 18 110/61 (77) 98 11/28/17 20:30 75 11/28/17 20:00 97.3 84 18 126/79 (95) 97 11/28/17 17:35 74 11/28/17 16:26 97.9 73 19 112/71 (85) 97 11/28/17 12:28 97.8 71 19 110/69 (83) 98 11/28/17 12:00 70 I/O 11/28/17 11/28/17 11/28/17 11/29/17 11/29/17 11/29/17 07:00 15:00 23:00 07:00 15:00 23:00 Intake Total 840 ml Balance 840 ml Intake Oral 840 ml # Voids 2 2 2 # Bowel Movements 1 2 Result Diagram: 11/29/17 0435 11/29/17 0435 Objective Remarks GENERAL: NAD, A&Ox3 HEAD: Normocephalic. NECK: Supple, trachea midline. No lymphadenopathy. EYES: No scleral icterus. No injection or drainage. CARDIOVASCULAR: Regular rate and rhythm without murmurs, gallops, or rubs. RESPIRATORY: Breath sounds equal bilaterally. No accessory muscle use. GASTROINTESTINAL: Abdomen soft, non-tender, abdomen distended MUSCULOSKELETAL: No cyanosis, bilateral lower extremity edema. SKIN: Warm and dry. Jaundice. NEURO: No focal neurological deficitis. A/P Problem List: (1) Alcoholism ICD Code: F10.20 - Alcohol dependence, uncomplicated (2) End stage liver disease ICD Code: K72.90 - Hepatic failure, unspecified without coma (3) Acute liver failure ICD Code: K72.00 - Acute and subacute hepatic failure without coma Status: Acute (4) Transaminitis ICD Code: R74.0 - Nonspecific elevation of levels of transaminase and lactic acid dehydrogenase [LDH] (5) Hypophosphatemia ICD Code: E83.39 - Other disorders of phosphorus metabolism Assessment and Plan 42-year-old male admitted secondary to acute liver failure Potassium dosing weaned from 60 mg every 6 hours down to 60 mg 3 times daily. Blood sugars are elevated and patient is started on long-acting insulin. Continue Aldactone and steroids for now. Monitor potassium level as patient is still on 180 mg of potassium daily. If his bodies potassium regulation is improving this could potentially overtreat his potassium levels, so he is not yet ready for discharge home until stability is assured. Hyperglycemia Follow blood sugars Insulin sliding scale Acute liver failure Cirrhosis End-stage liver disease Related to alcohol abuse Continue to monitor LFTs Continue to monitor bilirubin Monitor ammonia level Aldactone to manage edema Hyponatremia Resolved Related to alcohol abuse Hyponatremia Monitor for recurrence Hypomagnesia Hypophosphatemia Follow levels Hypokalemia Continue p.o. supplementation Further replacements as needed Chronic pancreatitis Continue Creon Alcohol abuse history Patient recommended no longer to drink alcohol Diabetes mellitus type 2 Follow blood sugars Insulin sliding scale Diabetic diet Coagulopathy Improved Diarrhea Imodium Lactulose on hold Failure to thrive Continue Megace DVT prophylaxis SCDs Discharge Planning Electrolyte stability needed prior to discharge YONAS discharge Problem Qualifiers (1) Acute liver failure: Qualified Codes: K72.00 - Acute and subacute hepatic failure without coma Fernando Mcgregor MD November 29, 2017 11:20
[2017-11-29] MEDS: MAGNESIUM SULFATE 1 GM PREMIX 100 ML IV SCH ×2 (11:31→12:41)
[2017-11-29] MEDS: INSULIN DETEMIR 100 UNITS/ML VIAL SQ SCH (11:49)
[2017-11-29] MEDS: MAGNESIUM OXIDE 400 MG TAB PO SCH (21:33)
[2017-11-30] VITALS (7 sets, daily range): BP systolic 102–141; BP diastolic 65–93; PULSE 67–77; RESP 16–18; TEMP 87.4–98.4; O2SAT 95–99
[2017-11-30] MEDS: INSULIN ASPART SUPPLEMENTAL SCALE SQ SCH ×4 (08:00→22:33)
[2017-11-30 08:41] LABS: AUTOMATED NEUTROPHIL # 24.6 TH/MM3 (1.8-7.7); BASOPHIL % 0.1 % (0.0-2.0); HEMATOCRIT 32.7 % (39.0-51.0); HEMOGLOBIN 10.9 GM/DL (13.0-17.0); LYMPH % 5.6 % (9.0-44.0); LYMPHOCYTE # 1.5 TH/MM3 (1.0-4.8); MEAN CELL VOLUME 96.7 FL (80.0-100.0); MEAN CORPUSCULAR HEMOGLOBIN 32.2 PG (27.0-34.0); MEAN CORPUSCULAR HGB CONC 33.4 % (32.0-36.0); MEAN PLATELET VOLUME 7.9 FL (7.0-11.0); MONO % 4.4 % (0.0-8.0); MONOCYTE # 1.2 TH/MM3 (0-0.9); NEUT % 89.9 % (16.0-70.0); PLATELET COUNT 517 TH/MM3 (150-450); RED BLOOD COUNT 3.38 MIL/MM3 (4.50-5.90); RED CELL DISTRIBUTION WIDTH 14.6 % (11.6-17.2); WHITE BLOOD COUNT 27.4 TH/MM3 (4.0-11.0)
[2017-11-30] MEDS: INSULIN DETEMIR 100 UNITS/ML VIAL SQ SCH (09:00)
[2017-11-30] MEDS: SODIUM CHLORIDE 0.9% FLUSH 10 ML FLUSH IV FLUSH SCH ×3 (09:00→22:15)
[2017-11-30 09:04] LABS: ALBUMIN 1.7 GM/DL (3.4-5.0); AST (GOT) 59 U/L (15-37); BICARBONATE 22.5 MEQ/L (21.0-32.0); BLOOD UREA NITROGEN 19 MG/DL (7-18); CALCIUM 7.5 MG/DL (8.5-10.1); CHLORIDE 101 MEQ/L (98-107); CREATININE 0.85 MG/DL (0.60-1.30); GLOMERULAR FILTRATION RATE 98 ML/MIN (>89); GLUCOSE,RANDOM 325 MG/DL (74-106); MAGNESIUM 1.5 MG/DL (1.5-2.5); SODIUM (NA) 135 MEQ/L (136-145)
[2017-11-30 09:16] LABS: ALKALINE PHOSPHATASE 197 U/L (45-117); ALT (GPT) 23 U/L (12-78); TOTAL BILIRUBIN ADULT 16.5 MG/DL (0.2-1.0); TOTAL PROTEIN 5.1 GM/DL (6.4-8.2)
[2017-11-30] MEDS: LORazepam 1 MG TAB PO PRN ×3 (09:30→22:14)
[2017-11-30] MEDS: MAGNESIUM OXIDE 400 MG TAB PO SCH ×2 (09:45→22:14)
[2017-11-30] MEDS: POTASSIUM CHLORIDE 20 MEQ CONTROLLED RELEASE TAB PO SCH ×3 (09:45→15:44)
[2017-11-30] MEDS: SPIRONOLACTONE 25 MG TAB PO SCH ×2 (09:46→17:13)
[2017-11-30] MEDS: RIFAXIMIN 550 MG TAB PO SCH ×2 (09:46→22:14)
[2017-11-30] MEDS: THIAMINE HCL 100 MG TAB PO SCH (09:46)
[2017-11-30] MEDS: CALCIUM CARBONATE 1.25 GM (CA 500 MG) TAB PO SCH ×2 (09:46→22:15)
[2017-11-30] MEDS: PARoxetine HCL 20 MG TAB PO SCH (09:46)
[2017-11-30] MEDS: PANTOPRAZOLE SOD 40 MG DELAYED RELEASE TAB PO SCH ×2 (09:46→22:14)
[2017-11-30] MEDS: LIPASE/PROTEASE/AMYLASE (12,000/38,000/60,000) CAP PO SCH ×3 (09:46→17:13)
[2017-11-30] MEDS: MEGESTROL ACETATE SUSP 400 MG/10 ML CUP PO SCH (09:47)
[2017-11-30] MEDS: methylPREDNISolone SOD SUCC 40 MG/1 ML VIAL IV PUSH SCH (09:47)
--- NOTE | 2017-11-30 11:08 | HHI.PR ---
Subjective Remarks Potassium levels remain stable. Steroids will be held for now to determine if there is any benefit given steroids or hyperglycemia. If this stability continues with his Aldactone, patient may be stable for discharge in 1-2 days. Objective Vital Signs Date Time Temp Pulse Resp B/P (MAP) Pulse Ox O2 Delivery O2 Flow Rate FiO2 11/30/17 08:00 97.9 67 16 123/84 (97) 99 11/30/17 04:30 67 11/30/17 04:00 97.6 76 18 122/80 (94) 98 11/30/17 00:00 97.8 76 18 125/71 (89) 95 11/29/17 20:00 98.0 78 18 107/80 (89) 99 11/29/17 16:07 97.6 85 18 108/79 (89) 97 11/29/17 11:52 97.7 78 18 117/76 (90) 96 I/O 11/29/17 11/29/17 11/29/17 11/30/17 11/30/17 11/30/17 07:00 15:00 23:00 07:00 15:00 23:00 Intake Total 100 ml 100 ml Balance 100 ml 100 ml IV Total 100 ml 100 ml # Voids 2 3 2 Result Diagram: 11/30/1771311/30/17 0714 Objective Remarks GENERAL: NAD, A&Ox3 HEAD: Normocephalic. NECK: Supple, trachea midline. No lymphadenopathy. EYES: No scleral icterus. No injection or drainage. CARDIOVASCULAR: Regular rate and rhythm without murmurs, gallops, or rubs. RESPIRATORY: Breath sounds equal bilaterally. No accessory muscle use. GASTROINTESTINAL: Abdomen soft, non-tender, abdomen distended MUSCULOSKELETAL: No cyanosis, bilateral lower extremity edema. SKIN: Warm and dry. Jaundice. NEURO: No focal neurological deficitis. A/P Problem List: (1) Alcoholism ICD Code: F10.20 - Alcohol dependence, uncomplicated (2) End stage liver disease ICD Code: K72.90 - Hepatic failure, unspecified without coma (3) Acute liver failure ICD Code: K72.00 - Acute and subacute hepatic failure without coma Status: Acute (4) Transaminitis ICD Code: R74.0 - Nonspecific elevation of levels of transaminase and lactic acid dehydrogenase [LDH] (5) Hypophosphatemia ICD Code: E83.39 - Other disorders of phosphorus metabolism Assessment and Plan 42-year-old male admitted secondary to acute liver failure Continue Aldactone. Hold steroids. Continue to monitor potassium levels. Follow CBC and CMP. Monitor for stability. Hyperglycemia Follow blood sugars Insulin sliding scale Acute liver failure Cirrhosis End-stage liver disease Related to alcohol abuse Continue to monitor LFTs Continue to monitor bilirubin Monitor ammonia level Aldactone to manage edema Hyponatremia Resolved Related to alcohol abuse Hyponatremia Monitor for recurrence Hypomagnesia Hypophosphatemia Follow levels Hypokalemia Continue p.o. supplementation Further replacements as needed Chronic pancreatitis Continue Creon Alcohol abuse history Patient recommended no longer to drink alcohol Diabetes mellitus type 2 Follow blood sugars Insulin sliding scale Diabetic diet Coagulopathy Improved Diarrhea Imodium Lactulose on hold Failure to thrive Continue Megace DVT prophylaxis SCDs Discharge Planning Electrolyte stability needed prior to discharge CUSTODIAL discharge Problem Qualifiers (1) Acute liver failure: Qualified Codes: K72.00 - Acute and subacute hepatic failure without coma Fernando Mcgregor MD Nov 30, 2017 11:08
--- NOTE | 2017-11-30 13:23 | HHI.NPPN ---
Subjective History of Present Illness 42-year-old male with a past medical history of chronic alcoholism and chronic liver disease, history of pancreatitis, diabetes mellitus, depression, who was admitted with nausea, vomiting and epigastric pain. I was called to see the patient because of low potassium and electrolyte disorder. The patient has history of hypokalemia in the past and his potassium has been low in the past. Additional Remarks No acute complaints. Potassium level has improved at 4.1 today. Review of Systems Gastrointestinal Gastrointestinal: Abdominal Pain, Diarrhea Objective Data Data Vital Signs Date Time Temp Pulse Resp B/P (MAP) Pulse Ox O2 Delivery O2 Flow Rate FiO2 11/30/17 12:28 97.7 73 17 102/65 (77) 97 11/30/17 12:09 16 11/30/17 08:00 97.9 67 16 123/84 (97) 99 11/30/17 04:30 67 11/30/17 04:00 97.6 76 18 122/80 (94) 98 11/30/17 00:00 97.8 76 18 125/71 (89) 95 11/29/17 20:00 98.0 78 18 107/80 (89) 99 11/29/17 16:07 97.6 85 18 108/79 (89) 97 -: 11/30/17 0714 11/30/17 0714 Physical Exam General Appearance: No Acute Distress, Comfortable Eyes Eye Exam: Pupils Equal Throat Throat Exam: Oral Mucosa [place] & Moist Neck Neck Exam: Neck Supple Pulmonary Resp Exam: Breath Sounds Equal, No Distress Cardiology CV Exam: Regular, Normal Sinus Rhythm Gastrointestinal/Abdomen GI Exam: Soft, Non-Tender, Bowel Sounds Present, Distended Extremeties Extremities Exam: Trace Edema Neurologic Neuro Exam: Alert, Awake Psychiatric Psych Exam: Appropriate Responses Assessment/Plan Electrolyte Assessment: Hypokalemia Problem List: (1) Hypertension ICD Codes: I10 - Hypertension Status: Chronic Plan: well controlled (2) Alcohol intoxication ICD Codes: F10.129 - Alcohol abuse with intoxication, unspecified Status: Acute (3) Chronic pancreatitis ICD Codes: K86.1 - Other chronic pancreatitis Status: Acute (4) Acute liver failure ICD Codes: K72.00 - Acute and subacute hepatic failure without coma Status: Acute (5) Hypokalemia ICD Codes: E87.6 - Hypokalemia Status: Acute Plan: Potassium at 4.1 today on scheduled replacement which has been decreased Repeat urine K level remains high. Aldactone dose was increased to 100 mg BID on Sunday with improvement in potassium Continue replacement as needed. labs in AM. K is better,continue Aldactone. Need to eat high K diet also. (6) Hyponatremia ICD Codes: E87.1 - Hypo-osmolality and hyponatremia Status: Acute Plan: Resolved (7) Hypomagnesemia ICD Codes: E83.42 - Hypomagnesemia Status: Acute Plan: continues to be low at 1.1 Oral replacement has been discontinue secondary to loose stools Will order IV today and order lower dose oral replacement to see if patient tolerates. (8) Alcohol withdrawal ICD Codes: F10.239 - Alcohol withdrawal syndrome Status: Acute Problem Qualifiers (1) Hypertension: Qualified Codes: I10 - Essential (primary) hypertension (2) Chronic pancreatitis: Qualified Codes: K86.0 - Alcohol-induced chronic pancreatitis (3) Acute liver failure: Qualified Codes: K72.00 - Acute and subacute hepatic failure without coma (4) Alcohol withdrawal: Qualified Codes: F10.230 - Alcohol dependence with withdrawal, uncomplicated Merlin Vieira MD Nov 30, 2017 13:23
[2017-11-30] MEDS: MELATONIN 5 MG TAB PO PRN (22:13)
[2017-12-01] VITALS (8 sets, daily range): BP systolic 124–145; BP diastolic 71–95; PULSE 60–93; RESP 13–20; TEMP 97.6–99.3; O2SAT 97–100
[2017-12-01] MEDS: LORazepam 1 MG TAB PO PRN ×3 (02:28→14:59)
[2017-12-01 07:23] LABS: HEMATOCRIT 35.8 % (39.0-51.0); HEMOGLOBIN 11.7 GM/DL (13.0-17.0); MEAN CELL VOLUME 96.1 FL (80.0-100.0); MEAN CORPUSCULAR HEMOGLOBIN 31.4 PG (27.0-34.0); MEAN CORPUSCULAR HGB CONC 32.7 % (32.0-36.0); MEAN PLATELET VOLUME 7.7 FL (7.0-11.0); PLATELET COUNT 481 TH/MM3 (150-450); RED BLOOD COUNT 3.73 MIL/MM3 (4.50-5.90); RED CELL DISTRIBUTION WIDTH 14.6 % (11.6-17.2); WHITE BLOOD COUNT 34.1 TH/MM3 (4.0-11.0)
[2017-12-01 07:52] LABS: ALBUMIN 1.8 GM/DL (3.4-5.0); ALKALINE PHOSPHATASE 201 U/L (45-117); ALT (GPT) 34 U/L (12-78); AST (GOT) 111 U/L (15-37); BICARBONATE 22.4 MEQ/L (21.0-32.0); BLOOD UREA NITROGEN 19 MG/DL (7-18); CALCIUM 7.8 MG/DL (8.5-10.1); CHLORIDE 104 MEQ/L (98-107); CREATININE 0.74 MG/DL (0.60-1.30); GLOMERULAR FILTRATION RATE 115 ML/MIN (>89); GLUCOSE,RANDOM 131 MG/DL (74-106); SODIUM (NA) 138 MEQ/L (136-145); TOTAL BILIRUBIN ADULT 15.6 MG/DL (0.2-1.0); TOTAL PROTEIN 5.4 GM/DL (6.4-8.2)
[2017-12-01] MEDS: INSULIN ASPART SUPPLEMENTAL SCALE SQ SCH ×4 (08:00→21:00)
[2017-12-01] MEDS: RIFAXIMIN 550 MG TAB PO SCH (08:36)
[2017-12-01] MEDS: THIAMINE HCL 100 MG TAB PO SCH (08:36)
[2017-12-01] MEDS: MAGNESIUM OXIDE 400 MG TAB PO SCH (08:36)
[2017-12-01] MEDS: LIPASE/PROTEASE/AMYLASE (12,000/38,000/60,000) CAP PO SCH ×3 (08:36→17:52)
[2017-12-01] MEDS: PANTOPRAZOLE SOD 40 MG DELAYED RELEASE TAB PO SCH (08:37)
[2017-12-01] MEDS: CALCIUM CARBONATE 1.25 GM (CA 500 MG) TAB PO SCH (08:37)
[2017-12-01] MEDS: PARoxetine HCL 20 MG TAB PO SCH (08:37)
[2017-12-01] MEDS: SPIRONOLACTONE 25 MG TAB PO SCH ×2 (08:38→17:52)
[2017-12-01] MEDS: POTASSIUM CHLORIDE 20 MEQ CONTROLLED RELEASE TAB PO SCH ×3 (08:39→14:59)
[2017-12-01] MEDS: MEGESTROL ACETATE SUSP 400 MG/10 ML CUP PO SCH (08:41)
[2017-12-01] MEDS: SODIUM CHLORIDE 0.9% FLUSH 10 ML FLUSH IV FLUSH SCH ×2 (08:41)
[2017-12-01] MEDS: INSULIN DETEMIR 100 UNITS/ML VIAL SQ SCH (08:42)
--- NOTE | 2017-12-01 10:07 | HHI.PR ---
Subjective Remarks Potassium levels remain stable off steroids. Possible discharge tomorrow if this stability continues. No new complaints from the patient. Objective Vital Signs Date Time Temp Pulse Resp B/P (MAP) Pulse Ox O2 Delivery O2 Flow Rate FiO2 12/01/17 08:00 99.3 84 18 145/95 (112) 97 12/01/17 04:00 98.4 82 20 137/71 (93) 97 12/01/17 00:40 60 12/01/17 00:00 97.6 73 20 142/85 (104) 98 11/30/17 20:00 98.4 77 18 141/93 (109) 98 11/30/17 16:26 97.4 74 18 138/86 (103) 96 11/30/17 12:28 97.7 73 17 102/65 (77) 97 11/30/17 12:09 16 I/O 11/30/17 11/30/17 11/30/17 12/01/17 12/01/17 12/01/17 07:00 15:00 23:00 07:00 15:00 23:00 # Voids 2 4 Result Diagram: 12/01/17 0703 12/01/17 0703 Objective Remarks GENERAL: NAD, A&Ox3 HEAD: Normocephalic. NECK: Supple, trachea midline. No lymphadenopathy. EYES: No scleral icterus. No injection or drainage. CARDIOVASCULAR: Regular rate and rhythm without murmurs, gallops, or rubs. RESPIRATORY: Breath sounds equal bilaterally. No accessory muscle use. GASTROINTESTINAL: Abdomen soft, non-tender, abdomen distended MUSCULOSKELETAL: No cyanosis, bilateral lower extremity edema. SKIN: Warm and dry. Jaundice. NEURO: No focal neurological deficitis. A/P Problem List: (1) Alcoholism ICD Code: F10.20 - Alcohol dependence, uncomplicated (2) End stage liver disease ICD Code: K72.90 - Hepatic failure, unspecified without coma (3) Acute liver failure ICD Code: K72.00 - Acute and subacute hepatic failure without coma Status: Acute (4) Transaminitis ICD Code: R74.0 - Nonspecific elevation of levels of transaminase and lactic acid dehydrogenase [LDH] (5) Hypophosphatemia ICD Code: E83.39 - Other disorders of phosphorus metabolism Assessment and Plan 42-year-old male admitted secondary to acute liver failure Continue Aldactone. Continue to monitor potassium levels. Follow CBC and CMP. Monitor for stability. Possible discharge tomorrow. Hyperglycemia Follow blood sugars Insulin sliding scale Acute liver failure Cirrhosis End-stage liver disease Related to alcohol abuse Continue to monitor LFTs Continue to monitor bilirubin Monitor ammonia level Aldactone to manage edema Hyponatremia Resolved Related to alcohol abuse Hyponatremia Monitor for recurrence Hypomagnesia Hypophosphatemia Follow levels Hypokalemia Continue p.o. supplementation Further replacements as needed Chronic pancreatitis Continue Creon Alcohol abuse history Patient recommended no longer to drink alcohol Diabetes mellitus type 2 Follow blood sugars Insulin sliding scale Diabetic diet Coagulopathy Improved Diarrhea Imodium Lactulose on hold Failure to thrive Continue Megace DVT prophylaxis SCDs Discharge Planning Electrolyte stability needed prior to discharge YONAS discharge Problem Qualifiers (1) Acute liver failure: Qualified Codes: K72.00 - Acute and subacute hepatic failure without coma Fernando Mcgregor MD Dec 01, 2017 10:07
[2017-12-01 10:16] LABS: BANDS 1 % (0-6); LYMPHOCYTES 9 % (9-44); MONOCYTES 3 % (0-8); POLYS (SEG NEUTROPHILS) 87 % (16-70)
[2017-12-01 10:17] LABS: TARGET CELLS 2+ (NORMAL)
[2017-12-02] VITALS: BP 124/88; PULSE 81; RESP 12; TEMP 98.1; O2SAT 96
[2017-12-02] MEDS: CALCIUM CARBONATE 1.25 GM (CA 500 MG) TAB PO SCH ×3 (00:55→20:41)
[2017-12-02] MEDS: PANTOPRAZOLE SOD 40 MG DELAYED RELEASE TAB PO SCH ×3 (00:55→20:41)
[2017-12-02] MEDS: RIFAXIMIN 550 MG TAB PO SCH ×3 (00:55→20:41)
[2017-12-02] MEDS: SODIUM CHLORIDE 0.9% FLUSH 10 ML FLUSH IV FLUSH SCH ×4 (00:56→20:42)
[2017-12-02] MEDS: MAGNESIUM OXIDE 400 MG TAB PO SCH ×3 (00:56→20:41)
[2017-12-02] MEDS: LORazepam 1 MG TAB PO PRN ×5 (01:01→21:55)
[2017-12-02] MEDS: INSULIN ASPART SUPPLEMENTAL SCALE SQ SCH ×4 (08:00→21:56)
[2017-12-02 08:16] LABS: AUTOMATED NEUTROPHIL # 24.4 TH/MM3 (1.8-7.7); BASOPHIL # 0.1 TH/MM3 (0-0.2); BASOPHIL % 0.2 % (0.0-2.0); EOSINOPHIL # 0.6 TH/MM3 (0-0.4); EOSINOPHIL % 1.9 % (0.0-4.0); HEMATOCRIT 36.2 % (39.0-51.0); LYMPH % 18.2 % (9.0-44.0); LYMPHOCYTE # 5.8 TH/MM3 (1.0-4.8); MEAN CELL VOLUME 97.2 FL (80.0-100.0); MEAN CORPUSCULAR HEMOGLOBIN 32.2 PG (27.0-34.0); MEAN CORPUSCULAR HGB CONC 33.1 % (32.0-36.0); MONO % 2.6 % (0.0-8.0); MONOCYTE # 0.8 TH/MM3 (0-0.9); NEUT % 77.1 % (16.0-70.0); PLATELET COUNT 453 TH/MM3 (150-450); RED BLOOD COUNT 3.72 MIL/MM3 (4.50-5.90); RED CELL DISTRIBUTION WIDTH 14.7 % (11.6-17.2); WHITE BLOOD COUNT 31.7 TH/MM3 (4.0-11.0)
[2017-12-02 08:32] VITALS: BP 123/82; PULSE 90; RESP 18; O2SAT 94
[2017-12-02] MEDS: SPIRONOLACTONE 25 MG TAB PO SCH ×2 (08:33→17:51)
[2017-12-02] MEDS: PARoxetine HCL 20 MG TAB PO SCH (08:35)
[2017-12-02] MEDS: LIPASE/PROTEASE/AMYLASE (12,000/38,000/60,000) CAP PO SCH ×3 (08:35→17:51)
[2017-12-02] MEDS: THIAMINE HCL 100 MG TAB PO SCH (08:36)
[2017-12-02] MEDS: POTASSIUM CHLORIDE 20 MEQ CONTROLLED RELEASE TAB PO SCH ×3 (08:36→17:51)
[2017-12-02] MEDS: MEGESTROL ACETATE SUSP 400 MG/10 ML CUP PO SCH (08:37)
[2017-12-02] MEDS: INSULIN DETEMIR 100 UNITS/ML VIAL SQ SCH (08:45)
[2017-12-02 08:46] LABS: ALBUMIN 1.7 GM/DL (3.4-5.0); ALKALINE PHOSPHATASE 235 U/L (45-117); ALT (GPT) 56 U/L (12-78); AST (GOT) 162 U/L (15-37); BICARBONATE 21.9 MEQ/L (21.0-32.0); BLOOD UREA NITROGEN 14 MG/DL (7-18); CALCIUM 7.8 MG/DL (8.5-10.1); CHLORIDE 102 MEQ/L (98-107); CREATININE 0.77 MG/DL (0.60-1.30); GLOMERULAR FILTRATION RATE 110 ML/MIN (>89); GLUCOSE,RANDOM 64 MG/DL (74-106); SODIUM (NA) 138 MEQ/L (136-145); TOTAL BILIRUBIN ADULT 16.2 MG/DL (0.2-1.0); TOTAL PROTEIN 5.2 GM/DL (6.4-8.2)
--- NOTE | 2017-12-02 11:23 | HHI.PR ---
Subjective Remarks With discontinuation of steroids his LFTs have graduated upward. His blood sugars are better controlled. Potassium level is slightly low today. Objective Vital Signs Date Time Temp Pulse Resp B/P (MAP) Pulse Ox O2 Delivery O2 Flow Rate FiO2 12/02/17 08:32 90 18 123/82 (96) 94 12/02/17 00:00 98.1 81 12 124/88 (100) 96 12/01/17 23:00 82 12/01/17 20:00 98.0 87 13 140/95 (110) 97 12/01/17 16:00 99.0 88 18 124/73 (90) 97 12/01/17 12:00 98.0 93 18 142/88 (106) 100 I/O 12/01/17 12/01/17 12/01/17 12/02/17 12/02/17 12/02/17 07:00 15:00 23:00 07:00 15:00 23:00 # Voids 4 Result Diagram: 12/02/17 0735 12/02/17 0735 Objective Remarks GENERAL: NAD, A&Ox3 HEAD: Normocephalic. NECK: Supple, trachea midline. No lymphadenopathy. EYES: No scleral icterus. No injection or drainage. CARDIOVASCULAR: Regular rate and rhythm without murmurs, gallops, or rubs. RESPIRATORY: Breath sounds equal bilaterally. No accessory muscle use. GASTROINTESTINAL: Abdomen soft, non-tender, abdomen distended MUSCULOSKELETAL: No cyanosis, bilateral lower extremity edema. SKIN: Warm and dry. Jaundice. NEURO: No focal neurological deficitis. A/P Problem List: (1) Alcoholism ICD Code: F10.20 - Alcohol dependence, uncomplicated (2) End stage liver disease ICD Code: K72.90 - Hepatic failure, unspecified without coma (3) Acute liver failure ICD Code: K72.00 - Acute and subacute hepatic failure without coma Status: Acute (4) Transaminitis ICD Code: R74.0 - Nonspecific elevation of levels of transaminase and lactic acid dehydrogenase [LDH] (5) Hypophosphatemia ICD Code: E83.39 - Other disorders of phosphorus metabolism Assessment and Plan 42-year-old male admitted secondary to acute liver failure Continue Aldactone. Continue to monitor potassium levels. Steroid reintroduced at 10 mg p.o. twice daily. He may need maintenance steroid such as 10 mg p.o. daily when discharged as it appears to help his liver inflammation and may contribute to benefit for his potassium wasting. Follow CBC and CMP. Monitor for stability. Possible discharge tomorrow. Hyperglycemia Follow blood sugars Insulin sliding scale Acute liver failure Cirrhosis End-stage liver disease Related to alcohol abuse Continue to monitor LFTs Continue to monitor bilirubin Monitor ammonia level Aldactone to manage edema Hyponatremia Resolved Related to alcohol abuse Hyponatremia Monitor for recurrence Hypomagnesia Hypophosphatemia Follow levels Hypokalemia Continue p.o. supplementation Further replacements as needed Chronic pancreatitis Continue Creon Alcohol abuse history Patient recommended no longer to drink alcohol Diabetes mellitus type 2 Follow blood sugars Insulin sliding scale Diabetic diet Coagulopathy Improved Diarrhea Imodium Lactulose on hold Failure to thrive Continue Megace DVT prophylaxis SCDs Discharge Planning Electrolyte stability needed prior to discharge YONAS discharge Problem Qualifiers (1) Acute liver failure: Qualified Codes: K72.00 - Acute and subacute hepatic failure without coma Fernando Mcgregor MD Dec 02, 2017 11:23
[2017-12-02 12:00] VITALS: BP 108/65; PULSE 82; RESP 18; TEMP 97.6; O2SAT 98
[2017-12-02 12:43] LABS: BANDS 1 % (0-6); LYMPHOCYTES 8 % (9-44); MONOCYTES 1 % (0-8); NEUTROPHIL # MANUAL DIFF 28.5 TH/MM3 (1.8-7.7); POLYS (SEG NEUTROPHILS) 89 % (16-70)
[2017-12-02 12:45] LABS: TARGET CELLS 1+ (NORMAL)
[2017-12-02] MEDS: predniSONE 10 MG TAB PO SCH ×2 (12:47→20:41)
[2017-12-02 13:27] VITALS: PULSE 84
[2017-12-02 16:00] VITALS: BP 142/81; PULSE 99; RESP 18; TEMP 97.2; O2SAT 98
[2017-12-02 23:00] VITALS: PULSE 80
[2017-12-03] VITALS (9 sets, daily range): BP systolic 120–134; BP diastolic 76–93; PULSE 77–104; RESP 16–20; TEMP 97.8–98.1; O2SAT 97–100
[2017-12-03] MEDS: THIAMINE HCL 100 MG TAB PO SCH (07:36)
[2017-12-03] MEDS: predniSONE 10 MG TAB PO SCH ×2 (07:36→22:15)
[2017-12-03] MEDS: RIFAXIMIN 550 MG TAB PO SCH ×2 (07:36→22:14)
[2017-12-03] MEDS: PANTOPRAZOLE SOD 40 MG DELAYED RELEASE TAB PO SCH ×2 (07:36→22:14)
[2017-12-03] MEDS: POTASSIUM CHLORIDE 20 MEQ CONTROLLED RELEASE TAB PO SCH ×3 (07:36→17:13)
[2017-12-03] MEDS: SPIRONOLACTONE 25 MG TAB PO SCH ×2 (07:36→17:13)
[2017-12-03] MEDS: SODIUM CHLORIDE 0.9% FLUSH 10 ML FLUSH IV FLUSH SCH ×3 (07:37→22:12)
[2017-12-03] MEDS: PARoxetine HCL 20 MG TAB PO SCH (07:37)
[2017-12-03] MEDS: MEGESTROL ACETATE SUSP 400 MG/10 ML CUP PO SCH (07:37)
[2017-12-03] MEDS: MAGNESIUM OXIDE 400 MG TAB PO SCH ×2 (07:37→22:14)
[2017-12-03] MEDS: LIPASE/PROTEASE/AMYLASE (12,000/38,000/60,000) CAP PO SCH ×3 (07:37→17:13)
[2017-12-03] MEDS: CALCIUM CARBONATE 1.25 GM (CA 500 MG) TAB PO SCH ×2 (07:37→22:13)
[2017-12-03] MEDS: INSULIN ASPART SUPPLEMENTAL SCALE SQ SCH ×4 (07:38→22:12)
--- NOTE | 2017-12-03 09:45 | HHI.NPPN ---
Subjective History of Present Illness 42-year-old male with a past medical history of chronic alcoholism and chronic liver disease, history of pancreatitis, diabetes mellitus, depression, who was admitted with nausea, vomiting and epigastric pain. I was called to see the patient because of low potassium and electrolyte disorder. The patient has history of hypokalemia in the past and his potassium has been low in the past. Additional Remarks No acute complaints. Abdomen distended. (Megha Del Cid) Review of Systems Gastrointestinal GI Remarks loose stools (Megha Del Cid) Objective Data Data Vital Signs Date Time Temp Pulse Resp B/P (MAP) Pulse Ox O2 Delivery O2 Flow Rate FiO2 12/03/17 07:31 98.0 83 16 120/76 (91) 100 12/03/17 04:00 98.1 77 20 129/83 (98) 98 12/03/17 00:00 97.8 77 20 129/93 (105) 97 12/02/17 23:00 80 12/02/17 16:00 97.2 99 18 142/81 (101) 98 12/02/17 13:27 84 12/02/17 12:00 97.6 82 18 108/65 (79) 98 (Megha Del Cid) -: 12/02/17 0735 12/02/17 0735 Physical Exam General Appearance: No Acute Distress, Comfortable (Megha Del Cid) Eyes Eye Exam: Pupils Equal (Megha Del Cid) Throat Throat Exam: Oral Mucosa [place] & Moist (Megha Del Cid) Neck Neck Exam: Neck Supple (Megha Del Cid) Pulmonary Resp Exam: Breath Sounds Equal, No Distress (Megha Del Cid) Cardiology CV Exam: Regular, Normal Sinus Rhythm (Megha Del Cid) Gastrointestinal/Abdomen GI Exam: Soft, Non-Tender, Bowel Sounds Present, Distended (Megha Del Cid) Extremeties Extremities Exam: Trace Edema (Megha Del Cid) Neurologic Neuro Exam: Alert, Awake (Megha Del Cid) Psychiatric Psych Exam: Appropriate Responses (Megha Del Cid) Assessment/Plan Electrolyte Assessment: Hypokalemia Problem List: (1) Hypertension ICD Codes: I10 - Hypertension Status: Chronic Plan: well controlled (2) Alcohol intoxication ICD Codes: F10.129 - Alcohol abuse with intoxication, unspecified Status: Acute (3) Chronic pancreatitis ICD Codes: K86.1 - Other chronic pancreatitis Status: Acute (4) Acute liver failure ICD Codes: K72.00 - Acute and subacute hepatic failure without coma Status: Acute (5) Hypokalemia ICD Codes: E87.6 - Hypokalemia Status: Acute Plan: Continue Aldactone 100 mg BID Continue replacement as needed. Can be discharged from Nephrology standpoint No labs available today will order for AM if not discharged (6) Hyponatremia ICD Codes: E87.1 - Hypo-osmolality and hyponatremia Status: Acute Plan: Resolved (7) Hypomagnesemia ICD Codes: E83.42 - Hypomagnesemia Status: Acute Plan: On oral replacement (8) Alcohol withdrawal ICD Codes: F10.239 - Alcohol withdrawal syndrome Status: Acute (Megha Del Cid) Problem List: (1) Hypertension ICD Codes: I10 - Hypertension Status: Chronic Plan: well controlled (2) Alcohol intoxication ICD Codes: F10.129 - Alcohol abuse with intoxication, unspecified Status: Acute (3) Chronic pancreatitis ICD Codes: K86.1 - Other chronic pancreatitis Status: Acute (4) Acute liver failure ICD Codes: K72.00 - Acute and subacute hepatic failure without coma Status: Acute (5) Hypokalemia ICD Codes: E87.6 - Hypokalemia Status: Acute Plan: Continue Aldactone 100 mg BID Continue replacement as needed. Can be discharged from Nephrology standpoint No labs available today will order for AM if not discharged. Patient seen and examined, agree with above. K has been better. (6) Hyponatremia ICD Codes: E87.1 - Hypo-osmolality and hyponatremia Status: Acute Plan: Resolved (7) Hypomagnesemia ICD Codes: E83.42 - Hypomagnesemia Status: Acute Plan: On oral replacement (8) Alcohol withdrawal ICD Codes: F10.239 - Alcohol withdrawal syndrome Status: Acute (Merlin Vieira MD) Problem Qualifiers (1) Hypertension: Qualified Codes: I10 - Essential (primary) hypertension (2) Chronic pancreatitis: Qualified Codes: K86.0 - Alcohol-induced chronic pancreatitis (3) Acute liver failure: Qualified Codes: K72.00 - Acute and subacute hepatic failure without coma (4) Alcohol withdrawal: Qualified Codes: F10.230 - Alcohol dependence with withdrawal, uncomplicated Megha Del Cid Dec 03, 2017 09:45 Merlin Vieira MD Dec 04, 2017 00:38
--- NOTE | 2017-12-03 09:53 | HHI.PR ---
Subjective Remarks in no acute distress. denies pain. feeling better. stool is getting more formed. Objective Vitals Vital Signs Date Time Temp Pulse Resp B/P (MAP) Pulse Ox O2 Delivery O2 Flow Rate FiO2 12/03/17 07:31 98.0 83 16 120/76 (91) 100 12/03/17 04:00 98.1 77 20 129/83 (98) 98 12/03/17 00:00 97.8 77 20 129/93 (105) 97 12/02/17 23:00 80 12/02/17 16:00 97.2 99 18 142/81 (101) 98 12/02/17 13:27 84 12/02/17 12:00 97.6 82 18 108/65 (79) 98 I/O 12/02/17 12/02/17 12/02/17 12/03/17 12/03/17 12/03/17 07:00 15:00 23:00 07:00 15:00 23:00 Intake Total 520 ml Balance 520 ml Intake Oral 520 ml # Voids 3 Result Diagram: 12/02/17 0735 12/02/17 0735 Imaging Last Impressions Upper Extremity Ultrasound 11/20/17 0000 Signed Impressions: CONCLUSION: 1. No evidence of DVT. Central Venous Line 11/08/17 0000 Signed Impressions: Service Date/Time: October 11:47 - CONCLUSION: Uncomplicated line placement as above. Merlni Monterio MD Abdomen/Pelvis CT 11/06/17 1137 Signed Impressions: Service Date/Time: Monday, November 06, 2017 14:50 - CONCLUSION: 1. Findings of chronic pancreatitis with calcifications in the head and uncinate process, dilation of the pancreatic duct and marked atrophy of the mid body and tail. 2. Diffuse hepatic fatty infiltration. No focal mass lesions. 3. Findings of portal hypertension with a portosystemic shunt emanating from the origin of the portal vein and draining into the left renal vein. 4. Cholelithiasis Merlin Monteiro MD Objective Remarks GENERAL: in no apparent distress. CARDIOVASCULAR: Regular rate and regular rhythm without murmurs, gallops, or rubs. RESPIRATORY: Clear to auscultation. Breath sounds equal bilaterally. No wheezes , rales, or rhonchi. GASTROINTESTINAL: Abdomen soft, mild generalized tenderness, nondistended. Normal, active bowel sounds MUSCULOSKELETAL: Extremities without clubbing, cyanosis, or edema. NEURO: Alert & Oriented x4 to person, place, time, situation. Moves all ext x4 Procedures central line placement. Medications and IVs Inpatient Medications Amylase/Lipase/ Protease (Creon 12-38-60) 1 cap TID PO Last administered on 12/03 07:37; Start 11/06/17 at 18:00 Calcium Carbonate (Oscal) 500 mg Q12HR PO Last administered on 12/03/17 07:37; Start 11/15/17 at 21:00 Calcium Chloride 2 gm/Sodium Chloride 120 ml @ 120 mls/hr ONCE ONCE IV Last administered on 11/21/17at 21:19; Start 11/21/17 at 18:45; Stop 11/21/17 at 19:44 ; Status DC Calcium Gluconate 1 gm/Dextrose 110 ml @ 110 mls/hr ONCE ONCE IV Last administered on 11/16/17at 09:58; Start 11/16/17 at 10:00; Stop 11/16/17 at 10:59 ; Status DC Cholestyramine Resin (Questran 4 Gm Pkt) 4 gm Q8HR PO Last administered on 11/24at 13:18; Start 11/21/17 at 10:00; Status Future Hold Dextrose (D50w (Vial) Inj) 50 ml UNSCH PRN IV PUSH HYPOGLYCEMIA-SEE COMMENTS; Start 11/28/17 at 09:30 Flumazenil (Romazicon Inj) 0.2 mg Q1M PRN IV PUSH SEE LABEL COMMENTS; Start 11/06/17 at 16:15 Folic Acid (Folate) 1 mg DAILY PO Last administered on 11/11/17at 08:54; Start 11/07/17 at 09:00; Stop 11/12/17 at 08:59; Status DC Glucagon (Glucagon Inj) 1 mg UNSCH PRN OTHER HYPOGLYCEMIA-SEE COMMENTS; Start 11/28/17 at 09:30 Insulin Aspart (NovoLOG SUPPLEMENTAL SCALE) 1 ACHS SLIDING SCALE SQ Last administered on 12/03/17at 07:38; Start 11/28/17 at 12:00 Insulin Detemir (Levemir Inj) 10 units DAILY SQ Last administered on 12/01/17at 08:42; Start 11/29/17 at 09:00; Stop 12/02/17 at 11:22; Status DC Lactulose (Lactulose Liq) 15 ml DAILY PO Last administered on 11/20/17at 08:10; Start 11/20/17 at 09:00; Status Future Hold Loperamide HCl (Imodium) 2 mg Q6H PRN PO diarrhea Last administered on at 18:23; Start 11/25/17 at 14:00 Lorazepam (Ativan Inj) 2 mg Q15M PRN IV PUSH CIWA > 20; Start 11/06/17 at 16:15 Lorazepam (Ativan) 0.5 mg ONCE ONCE PO Last administered on 11/19/17at 11:10; Start 11/19/17 at 11:00; Stop 11/19/17 at 11:05; Status DC Magnesium Oxide (Mag-Ox) 800 mg TID PO Last administered on 11/24/17at 08:47; Start 11/19/17 at 13:00; Status Future Hold Magnesium Sulfate 2 gm/Sodium Chloride 100 ml @ 50 mls/hr UNSCH PRN IV For Magnesium 1.2 - 1.6 mg/dL; Start 11/06/17 at 17:45; Stop 11/07/17 at 13:00; Status DC Magnesium Sulfate 4 gm/Dextrose 100 ml @ 25 mls/hr ONCE IV Last administered on 11/06/17at 18:52; Start 11/06/17 at 17:00; Stop 11/06/17 at 20:59; Status DC Magnesium Sulfate 4 gm/Sodium Chloride 100 ml @ 50 mls/hr UNSCH PRN IV For Magnesium 0.9 - 1.1 mg/dL; Start 11/06/17 at 17:45; Stop 11/07/17 at 13:00; Status DC Magnesium Sulfate/ Dextrose 100 ml @ 100 mls/hr Q1H IV Last administered on at 12:41; Start 11/29/17 at 10:30; Stop 11/29/17 at 12:29; Status DC Megestrol Acetate (Megace Liq) 400 mg DAILY PO Last administered on 12/03/17at 07 :37; Start 11/22/17 at 13:00 Melatonin (Melatonin) 5 mg HS PRN PO INSOMNIA Last administered on 11/30/17at 22: 13; Start 11/18/17 at 20:30 Methylprednisolone Sodium Succinate (SoluMEDROL INJ) 40 mg Q12HR IV PUSH Last administered on 11/30/17 09:47; Start 11/27/17 at 21:00; Stop 11/30/17 at 11:08; Status DC Metoclopramide HCl (Reglan Inj) 10 mg ONCE ONCE IV PUSH Last administered on 17:24; Start 11/06/17 at 14:45; Stop 11/06/17 at 14:50; Status DC Metoprolol Succinate (Toprol Xl) 25 mg DAILY PO Last administered on 11/17/17 09:51; Start 11/07/17 at 09:00; Status Future Hold Miscellaneous (Pill Splitter) 1 ea UNSCH PRN OTHER SEE LABEL COMMENTS; Start at 14:00 Morphine Sulfate (Morphine Inj) 4 mg ONCE ONCE IV PUSH Last administered on 17:25; Start 11/06/17 at 16:15; Stop 11/06/17 at 16:16; Status DC Multivitamins/ Minerals Therapeutic (Theragran M Tab) 1 tab DAILY PO Last administered on 11/11/17 08:58; Start 11/07/17 at 09:00; Stop 11/12/17 at 08:59 ; Status DC Ondansetron HCl (Zofran Inj) 4 mg Q6H PRN IV PUSH NAUSEA OR VOMITING Last administered on 11/07/17 07:53; Start 11/06/17 at 16:15 Oxycodone HCl (Roxicodone) 5 mg Q6H PRN PO PAIN SCALE 4 TO 10 Last administered on 12/03/17 07:39; Start 11/07/17 at 17:00 Pantoprazole Sodium (Protonix) 40 mg BID PO Last administered on 12/03/17 07:36 ; Start 11/16/17 at 21:00 Paroxetine HCl (Paxil) 40 mg DAILY PO Last administered on 12/03/17 07:37; Start 11/07/17 at 09:00 Phytonadione (Mephyton Liq) 5 mg DAILY PO Last administered on 11/08/17at 09:00 ; Start 11/06/17 at 20:30; Stop 11/08/17 at 20:29; Status DC Potassium Chloride 30 meq/ Sodium Chloride 1,015 ml @ 100 mls/hr Q10H9M IV Last administered on 11/06/17at 19:37; Start 11/06/17 at 17:00; Stop 11/07/17 at 00: 28; Status DC Potassium Chloride/Sodium Chloride 1,000 ml @ 42 mls/hr Q45M50U IV Last administered on 11/22/17at 08:18; Start 11/09/17 at 16:45; Stop 11/22/17 at 12:06 ; Status DC Potassium Phosphate (K-Phos) 2,000 mg UNSCH PRN PO/TUBE SEE LABEL COMMENTS; Start 11/06/17 at 17:45; Stop 11/07/17 at 13:00; Status DC Potassium Phosphate 15 mmol/ Sodium Chloride 155 ml @ 38.75 mls/ hr ONCE ONCE IV Last administered on 11/13/17at 05:40; Start 11/13/17 at 04:00; Stop at 07:59; Status DC Potassium Phosphate 30 mmol/ Sodium Chloride 260 ml @ 43.333 mls/ hr ONCE ONCE IV Last administered on 11/09/17at 19:13; Start 11/09/17 at 18:00; Stop 05/19 at 23:59; Status DC Potassium Bicarb/ Potassium Chloride (K-Lyte Cl Eff) 50 meq ONCE ONCE PO Last administered on 11/18/17at 04:54; Start 11/18/17 at 04:45; Stop 11/18/17 at 04:46; Status DC Potassium Chloride (KCl) 60 meq TIDAC PO Last administered on 12/03/17at 07:36; Start 11/29/17 at 12:00 Potassium Phos/ Sodium Phos (K-Phos Neutral) 250 mg Q8HR PO Last administered on 11/25/17at 06:12; Start 11/11/17 at 09:00; Stop 11/25/17 at 09:53; Status DC Prednisone (Deltasone) 10 mg BID PO Last administered on 12/03/17at 07:36; Start 12/02/17 at 09:00 Rifaximin (Xifaxan) 550 mg BID PO Last administered on 12/03/17at 07:36; Start at 21:00 Sodium Chloride 250 ml @ 0 mls/hr BOLUS ONCE IV ; Start 11/12/17 at 14:45; Stop 11/12/17 at 14:46; Status DC Sodium Chloride (NS Flush) UNSCH PRN IV FLUSH SEE PROTOCOL; Start 11/08/17 at 12:00 Sodium Phosphate 15 mmol/Sodium Chloride 155 ml @ 38.75 mls/ hr ONCE ONCE IV Last administered on 11/10/17at 12:00; Start 11/10/17 at 10:45; Stop 11/10/17 at 14:44; Status DC Sodium Phosphate 30 mmol/Sodium Chloride 260 ml @ 43.333 mls/ hr ONCE ONCE IV Last administered on 11/12/17at 09:21; Start 11/12/17 at 06:45; Stop 11/12/17 at 12:44; Status DC Spironolactone (Aldactone) 100 mg BID@09,18 PO Last administered on 12/03/17at 07 :36; Start 11/25/17 at 18:00 Thiamine HCl (Vitamin B1) 100 mg DAILY PO Last administered on 12/03/17at 07:36; Start 11/07/17 at 09:00 Thiamine HCl 100 mg/Sodium Chloride 101 ml @ 101 mls/hr ONCE ONCE IV Last administered on 11/07/17at 01:13; Start 11/07/17 at 00:45; Stop 11/07/17 at 01:44; Status DC A/P Problem List: (1) Acute liver failure ICD Code: K72.00 - Acute and subacute hepatic failure without coma Status: Acute (2) Hyponatremia ICD Code: E87.1 - Hypo-osmolality and hyponatremia Status: Acute (3) Hypokalemia ICD Code: E87.6 - Hypokalemia Status: Acute (4) Chronic pancreatitis ICD Code: K86.1 - Other chronic pancreatitis Status: Acute (5) Alcohol abuse ICD Code: F10.10 - Alcohol abuse Status: Chronic (6) Hypomagnesemia ICD Code: E83.42 - Hypomagnesemia Status: Acute (7) Diabetes ICD Code: E11.9 - Type 2 diabetes mellitus without complications (8) Elevated LFTs ICD Code: R79.89 - Other specified abnormal findings of blood chemistry (9) Hyperammonemia ICD Code: E72.20 - Disorder of urea cycle metabolism, unspecified Assessment and Plan A/P Hyperglycemia Follow blood sugars Insulin sliding scale Acute liver failure Cirrhosis End-stage liver disease Related to alcohol abuse Continue to monitor LFTs Continue to monitor bilirubin Monitor ammonia level Aldactone to manage edema Hyponatremia Resolved Related to alcohol abuse Hyponatremia Monitor for recurrence Hypomagnesia Hypophosphatemia Follow levels Hypokalemia Continue p.o. supplementation Further replacements as needed Chronic pancreatitis Continue Creon Alcohol abuse history Patient recommended no longer to drink alcohol Diabetes mellitus type 2 Follow blood sugars Insulin sliding scale Diabetic diet Coagulopathy Improved leukocytosis due to steroids?- remains afebrile. will monitor. Diarrhea better Imodium Lactulose on hold Failure to thrive Continue Megace DVT prophylaxis SCDs Discharge Planning discharge planning within the next 24 hrs- pending BMP today. f/u; pcp and GI. see med list. d/w the patient. time spent 35 min. Problem Qualifiers (1) Acute liver failure: Qualified Codes: K72.00 - Acute and subacute hepatic failure without coma (2) Chronic pancreatitis: Qualified Codes: K86.0 - Alcohol-induced chronic pancreatitis Amparo Castro MD Dec 03, 2017 09:52
[2017-12-03] MEDS ORDERED: SPIR25 PO (10:14)
[2017-12-03] MEDS ORDERED: XIFA550T4 PO (10:14)
[2017-12-03] MEDS ORDERED: PRED5TAB PO ×2 (10:14→10:18)
[2017-12-03] MEDS ORDERED: POTA20TA5 PO (10:14)
[2017-12-03] MEDS ORDERED: NADO40TA PO (10:14)
[2017-12-03] MEDS: LORazepam 1 MG TAB PO PRN ×3 (12:26→22:13)
[2017-12-03] MEDS ORDERED: VITA100T54 PO (12:38)
--- NOTE | 2017-12-03 12:40 | HHI.DS ---
Discharge Summary Admission Date November 06, 2017 at 16:02 Discharge Date: Dec 07, 2017 Admitting Diagnosis Acute liver failure, hypokalemia, hyponatremia, leukocytosis (1) Acute liver failure ICD Code: K72.00 - Acute and subacute hepatic failure without coma Diagnosis: Principal Status: Acute (2) Hyponatremia ICD Code: E87.1 - Hypo-osmolality and hyponatremia Diagnosis: Principal Status: Acute (3) Hypokalemia ICD Code: E87.6 - Hypokalemia Diagnosis: Principal Status: Acute (4) Chronic pancreatitis ICD Code: K86.1 - Other chronic pancreatitis Diagnosis: Secondary Status: Acute (5) Alcohol abuse ICD Code: F10.10 - Alcohol abuse Diagnosis: Principal Status: Chronic (6) Hypomagnesemia ICD Code: E83.42 - Hypomagnesemia Diagnosis: Principal Status: Acute (7) Diabetes ICD Code: E11.9 - Type 2 diabetes mellitus without complications Diagnosis: Secondary (8) Elevated LFTs ICD Code: R79.89 - Other specified abnormal findings of blood chemistry Diagnosis: Principal (9) Hyperammonemia ICD Code: E72.20 - Disorder of urea cycle metabolism, unspecified Diagnosis: Principal Procedures central line placement. Brief History - From Admission 42-year-old male alcoholic who presented to the emergency room with complaint of nausea, vomiting, and midepigastric pain. Patient has had recurrent hospital visits due to complications from alcohol. However he continues to drink at least 3 tall glasses of vodka daily. He reports over the past few days he has not been able to tolerate anything by mouth due to persistent nausea and vomiting. Workup in the emergency room indicate acute liver failure and severe electrolyte abnormalities. On my evaluation, the patient still reports some mild midepigastric discomfort. He is asking for ice chips. He is a poor historian and has poor insight into the detrimental effects of alcohol on his health. He denies diarrhea. Last bowel movement was a few days ago. CBC/BMP: 12/02/17 0735 12/02/17 0735 Significant Findings Laboratory Tests Test 12/01/17 07:03 12/02/17 07:35 White Blood Count 34.1 TH/MM3 (4.0-11.0) 31.7 TH/MM3 (4.0-11.0) Red Blood Count 3.73 MIL/MM3 (4.50-5.90) 3.72 MIL/MM3 (4.50-5.90) Hemoglobin 11.7 GM/DL (13.0-17.0) 12.0 GM/DL (13.0-17.0) Hematocrit 35.8 % (39.0-51.0) 36.2 % (39.0-51.0) Platelet Count 481 TH/MM3 (150-450) 453 TH/MM3 (150-450) Neutrophils % (Manual) 87 % (16-70) 89 % (16-70) Neutrophils # (Manual) 30.0 TH/MM3 (1.8-7.7) 28.5 TH/MM3 (1.8-7.7) Platelet Estimate HIGH (NORMAL) HIGH (NORMAL) Target Cells 2+ (NORMAL) 1+ (NORMAL) Blood Urea Nitrogen 19 MG/DL (7-18) Random Glucose 131 MG/DL (74-106) 64 MG/DL (74-106) Total Protein 5.4 GM/DL (6.4-8.2) 5.2 GM/DL (6.4-8.2) Albumin 1.8 GM/DL (3.4-5.0) 1.7 GM/DL (3.4-5.0) Calcium Level 7.8 MG/DL (8.5-10.1) 7.8 MG/DL (8.5-10.1) Alkaline Phosphatase 201 U/L (45-117) 235 U/L (45-117) Aspartate Amino Transf (AST/SGOT) 111 U/L (15-37) 162 U/L (15-37) Total Bilirubin 15.6 MG/DL (0.2-1.0) 16.2 MG/DL (0.2-1.0) Neutrophils (%) (Auto) 77.1 % (16.0-70.0) Neutrophils # (Auto) 24.4 TH/MM3 (1.8-7.7) Lymphocytes # (Auto) 5.8 TH/MM3 (1.0-4.8) Eosinophils # (Auto) 0.6 TH/MM3 (0-0.4) Lymphocytes % 8 % (9-44) Potassium Level 3.3 MEQ/L (3.5-5.1) Imaging Last Impressions Upper Extremity Ultrasound 11/20/17 0000 Signed Impressions: CONCLUSION: 1. No evidence of DVT. Central Venous Line 11/08/17 0000 Signed Impressions: Service Date/Time: October 11:47 - CONCLUSION: Uncomplicated line placement as above. Merlin Monteiro MD Abdomen/Pelvis CT 11/06/17 1137 Signed Impressions: Service Date/Time: Monday, November 06, 2017 14:50 - CONCLUSION: 1. Findings of chronic pancreatitis with calcifications in the head and uncinate process, dilation of the pancreatic duct and marked atrophy of the mid body and tail. 2. Diffuse hepatic fatty infiltration. No focal mass lesions. 3. Findings of portal hypertension with a portosystemic shunt emanating from the origin of the portal vein and draining into the left renal vein. 4. Cholelithiasis Merlin Monteiro MD PE at Discharge GENERAL: in no apparent distress. CARDIOVASCULAR: Regular rate and regular rhythm without murmurs, gallops, or rubs. RESPIRATORY: Clear to auscultation. Breath sounds equal bilaterally. No wheezes , rales, or rhonchi. GASTROINTESTINAL: Abdomen soft, mild generalized tenderness, nondistended. Normal, active bowel sounds MUSCULOSKELETAL: Extremities without clubbing, cyanosis, or edema. NEURO: Alert & Oriented x4 to person, place, time, situation. Moves all ext x4 Hospital Course Hyperglycemia Follow blood sugars Insulin sliding scale Acute liver failure Cirrhosis End-stage liver disease Related to alcohol abuse Continue to monitor LFTs Continue to monitor bilirubin Monitor ammonia level Aldactone to manage edema Hyponatremia Resolved Related to alcohol abuse Hyponatremia Monitor for recurrence Hypomagnesia Hypophosphatemia Follow levels Hypokalemia Continue p.o. supplementation Further replacements as needed Chronic pancreatitis Continue Creon Alcohol abuse history Patient recommended no longer to drink alcohol Diabetes mellitus type 2 Follow blood sugars Insulin sliding scale Diabetic diet Coagulopathy Improved Diarrhea better Imodium Lactulose on hold Failure to thrive Continue Megace Pt Condition on Discharge: Fair Discharge Disposition: Discharge Home Discharge Time: > 30 minutes Discharge Instructions DIET: Follow Instructions for: Heart Healthy Diet, Diabetic Diet Activities you can perform: Regular-No Restrictions Amparo Castro MD Dec 03, 2017 12:39
[2017-12-03 14:30] LABS: CALCIUM 7.3 MG/DL (8.5-10.1); CREATININE 0.87 MG/DL (0.60-1.30)
[2017-12-03 14:45] LABS: CALCIUM-PROTEIN CORRECTED 8.3 MG/DL (8.5-10.1); TOTAL PROTEIN 5.2 GM/DL (6.4-8.2)
[2017-12-03 16:08] LABS: BASOPHIL # 0.2 TH/MM3 (0-0.2); BASOPHIL % 0.8 % (0.0-2.0); EOSINOPHIL # 0.1 TH/MM3 (0-0.4); EOSINOPHIL % 0.3 % (0.0-4.0); HEMATOCRIT 32.5 % (39.0-51.0); HEMOGLOBIN 11.4 GM/DL (13.0-17.0); LYMPH % 5.2 % (9.0-44.0); LYMPHOCYTE # 1.6 TH/MM3 (1.0-4.8); MEAN CELL VOLUME 95.8 FL (80.0-100.0); MEAN CORPUSCULAR HEMOGLOBIN 33.5 PG (27.0-34.0); MEAN PLATELET VOLUME 8.4 FL (7.0-11.0); MONO % 2.8 % (0.0-8.0); MONOCYTE # 0.9 TH/MM3 (0-0.9); NEUT % 90.9 % (16.0-70.0); PLATELET COUNT 432 TH/MM3 (150-450); RED BLOOD COUNT 3.39 MIL/MM3 (4.50-5.90); RED CELL DISTRIBUTION WIDTH 14.7 % (11.6-17.2); WHITE BLOOD COUNT 30.8 TH/MM3 (4.0-11.0)
[2017-12-03 17:30] LABS: BANDS 1 % (0-6); LYMPHOCYTES 2 % (9-44); MONOCYTES 2 % (0-8); NEUTROPHIL # MANUAL DIFF 29.6 TH/MM3 (1.8-7.7); POLYS (SEG NEUTROPHILS) 95 % (16-70)
[2017-12-03 17:32] LABS: SPHEROCYTES 1+ (NORMAL); TARGET CELLS 1+ (NORMAL); TOXIC GRANULATION 3+ (NORMAL)
[2017-12-03 17:33] LABS: TOXIC VACUOLATION PRESENT (NONE SEEN)
[2017-12-04] VITALS (7 sets, daily range): BP systolic 125–142; BP diastolic 80–92; PULSE 78–93; RESP 18; TEMP 97.2–98.4; O2SAT 95–99
[2017-12-04] MEDS: LORazepam 1 MG TAB PO PRN ×5 (04:21→23:35)
[2017-12-04 07:16] LABS: BICARBONATE 18.1 MEQ/L (21.0-32.0); CALCIUM 7.4 MG/DL (8.5-10.1); CREATININE 0.7 MG/DL (0.60-1.30); MAGNESIUM 1.1 MG/DL (1.5-2.5); PHOSPHORUS 2.5 MG/DL (2.5-4.9)
[2017-12-04 07:32] LABS: CALCIUM-PROTEIN CORRECTED 8.5 MG/DL (8.5-10.1); TOTAL PROTEIN 5.2 GM/DL (6.4-8.2)
[2017-12-04] MEDS: RIFAXIMIN 550 MG TAB PO SCH ×2 (08:59→20:13)
[2017-12-04] MEDS: LIPASE/PROTEASE/AMYLASE (12,000/38,000/60,000) CAP PO SCH ×3 (08:59→18:31)
[2017-12-04] MEDS: PANTOPRAZOLE SOD 40 MG DELAYED RELEASE TAB PO SCH ×2 (08:59→20:13)
[2017-12-04] MEDS: PARoxetine HCL 20 MG TAB PO SCH (09:00)
[2017-12-04] MEDS: SODIUM CHLORIDE 0.9% FLUSH 10 ML FLUSH IV FLUSH SCH ×3 (09:00→20:14)
[2017-12-04] MEDS: SPIRONOLACTONE 25 MG TAB PO SCH ×2 (09:00→18:31)
[2017-12-04] MEDS: MAGNESIUM OXIDE 400 MG TAB PO SCH ×2 (09:00→20:13)
[2017-12-04] MEDS: MEGESTROL ACETATE SUSP 400 MG/10 ML CUP PO SCH (09:01)
[2017-12-04] MEDS: CALCIUM CARBONATE 1.25 GM (CA 500 MG) TAB PO SCH ×2 (09:01→20:13)
[2017-12-04] MEDS: THIAMINE HCL 100 MG TAB PO SCH (09:01)
[2017-12-04] MEDS: predniSONE 10 MG TAB PO SCH (09:01)
[2017-12-04] MEDS: POTASSIUM CHLORIDE 20 MEQ CONTROLLED RELEASE TAB PO SCH (09:12)
[2017-12-04] MEDS: INSULIN ASPART SUPPLEMENTAL SCALE SQ SCH ×4 (09:19→21:55)
[2017-12-04] MEDS ORDERED: MAGNESIUM SULFATE 1 GM PREMIX 100 ML IV ONE (10:15)
--- NOTE | 2017-12-04 10:18 | HHI.PR ---
Subjective Remarks in no acute distress. no fever. denies pain. Objective Vitals Vital Signs Date Time Temp Pulse Resp B/P (MAP) Pulse Ox O2 Delivery O2 Flow Rate FiO2 12/04/17 08:28 98.0 78 18 132/87 (102) 97 12/04/17 05:00 97.2 91 18 125/80 (95) 99 12/04/17 00:15 98.1 88 18 131/87 (102) 97 12/03/17 20:33 98.1 89 18 132/83 (99) 98 12/03/17 16:53 85 12/03/17 16:27 98.0 83 18 134/84 (101) 98 12/03/17 13:40 82 12/03/17 12:39 98.1 100 18 133/90 (104) 98 I/O 12/03/17 12/03/17 12/03/17 12/04/17 12/04/17 12/04/17 07:00 15:00 23:00 07:00 15:00 23:00 Intake Total 520 ml 480 ml Balance 520 ml 480 ml Intake Oral 520 ml 480 ml # Voids 3 3 3 # Bowel Movements 2 Result Diagram: 12/03/17 1530 12/04/17 0615 Imaging Last Impressions Upper Extremity Ultrasound 11/20/17 0000 Signed Impressions: CONCLUSION: 1. No evidence of DVT. Central Venous Line 11/08/17 0000 Signed Impressions: Service Date/Time: October 11:47 - CONCLUSION: Uncomplicated line placement as above. Merlin Monteiro MD Abdomen/Pelvis CT 11/06/17 1137 Signed Impressions: Service Date/Time: Monday, November 06, 2017 14:50 - CONCLUSION: 1. Findings of chronic pancreatitis with calcifications in the head and uncinate process, dilation of the pancreatic duct and marked atrophy of the mid body and tail. 2. Diffuse hepatic fatty infiltration. No focal mass lesions. 3. Findings of portal hypertension with a portosystemic shunt emanating from the origin of the portal vein and draining into the left renal vein. 4. Cholelithiasis Merlin Monteiro MD Objective Remarks GENERAL: in no apparent distress. CARDIOVASCULAR: Regular rate and regular rhythm without murmurs, gallops, or rubs. RESPIRATORY: Clear to auscultation. Breath sounds equal bilaterally. No wheezes , rales, or rhonchi. GASTROINTESTINAL: Abdomen soft, mild generalized tenderness, nondistended. Normal, active bowel sounds MUSCULOSKELETAL: Extremities without clubbing, cyanosis, or edema. NEURO: Alert & Oriented x4 to person, place, time, situation. Moves all ext x4 Procedures central line placement. Medications and IVs Inpatient Medications Amylase/Lipase/ Protease (Creon 12-38-60) 1 cap TID PO Last administered on 12/04at 08:59; Start 11/06/17 at 18:00 Calcium Carbonate (Oscal) 500 mg Q12HR PO Last administered on 12/04/17 09:01; Start 11/15/17 at 21:00 Calcium Chloride 2 gm/Sodium Chloride 120 ml @ 120 mls/hr ONCE ONCE IV Last administered on 11/21/17at 21:19; Start 11/21/17 at 18:45; Stop 11/21/17 at 19:44 ; Status DC Calcium Gluconate 1 gm/Dextrose 110 ml @ 110 mls/hr ONCE ONCE IV Last administered on 11/16/17at 09:58; Start 11/16/17 at 10:00; Stop 11/16/17 at 10:59 ; Status DC Cholestyramine Resin (Questran 4 Gm Pkt) 4 gm Q8HR PO Last administered on 11/24at 13:18; Start 11/21/17 at 10:00; Status Future Hold Dextrose (D50w (Vial) Inj) 50 ml UNSCH PRN IV PUSH HYPOGLYCEMIA-SEE COMMENTS; Start 11/28/17 at 09:30 Flumazenil (Romazicon Inj) 0.2 mg Q1M PRN IV PUSH SEE LABEL COMMENTS; Start 11/06/17 at 16:15 Folic Acid (Folate) 1 mg DAILY PO Last administered on 11/11/17at 08:54; Start 11/07/17 at 09:00; Stop 11/12/17 at 08:59; Status DC Glucagon (Glucagon Inj) 1 mg UNSCH PRN OTHER HYPOGLYCEMIA-SEE COMMENTS; Start 11/28/17 at 09:30 Insulin Aspart (NovoLOG SUPPLEMENTAL SCALE) 1 ACHS SLIDING SCALE SQ Last administered on 12/04/17 09:19; Start 11/28/17 at 12:00 Insulin Detemir (Levemir Inj) 10 units DAILY SQ Last administered on 12/01/17at 08:42; Start 11/29/17 at 09:00; Stop 12/02/17 at 11:22; Status DC Lactulose (Lactulose Liq) 15 ml DAILY PO Last administered on 11/20/17at 08:10; Start 11/20/17 at 09:00; Status Future Hold Loperamide HCl (Imodium) 2 mg Q6H PRN PO diarrhea Last administered on at 18:23; Start 11/25/17 at 14:00 Lorazepam (Ativan Inj) 2 mg Q15M PRN IV PUSH CIWA > 20; Start 11/06/17 at 16:15 Lorazepam (Ativan) 0.5 mg ONCE ONCE PO Last administered on 11/19/17at 11:10; Start 11/19/17 at 11:00; Stop 11/19/17 at 11:05; Status DC Magnesium Oxide (Mag-Ox) 800 mg TID PO Last administered on 11/24/17at 08:47; Start 11/19/17 at 13:00; Status Future Hold Magnesium Sulfate 2 gm/Sodium Chloride 100 ml @ 50 mls/hr UNSCH PRN IV For Magnesium 1.2 - 1.6 mg/dL; Start 11/06/17 at 17:45; Stop 11/07/17 at 13:00; Status DC Magnesium Sulfate 4 gm/Dextrose 100 ml @ 25 mls/hr ONCE IV Last administered on 11/06/17at 18:52; Start 11/06/17 at 17:00; Stop 11/06/17 at 20:59; Status DC Magnesium Sulfate 4 gm/Sodium Chloride 100 ml @ 50 mls/hr UNSCH PRN IV For Magnesium 0.9 - 1.1 mg/dL; Start 11/06/17 at 17:45; Stop 11/07/17 at 13:00; Status DC Magnesium Sulfate/ Dextrose 100 ml @ 100 mls/hr Q1H IV Last administered on at 12:41; Start 11/29/17 at 10:30; Stop 11/29/17 at 12:29; Status DC Megestrol Acetate (Megace Liq) 400 mg DAILY PO Last administered on 12/04/17at 09 :01; Start 11/22/17 at 13:00 Melatonin (Melatonin) 5 mg HS PRN PO INSOMNIA Last administered on 11/30/17 22: 13; Start 11/18/17 at 20:30 Methylprednisolone Sodium Succinate (SoluMEDROL INJ) 40 mg Q12HR IV PUSH Last administered on 11/30/17at 09:47; Start 11/27/17 at 21:00; Stop 11/30/17 at 11:08; Status DC Metoclopramide HCl (Reglan Inj) 10 mg ONCE ONCE IV PUSH Last administered on at 17:24; Start 11/06/17 at 14:45; Stop 11/06/17 at 14:50; Status DC Metoprolol Succinate (Toprol Xl) 25 mg DAILY PO Last administered on 11/17/17 09:51; Start 11/07/17 at 09:00; Status Future Hold Miscellaneous (Pill Splitter) 1 ea UNSCH PRN OTHER SEE LABEL COMMENTS; Start at 14:00 Morphine Sulfate (Morphine Inj) 4 mg ONCE ONCE IV PUSH Last administered on 11/06/17at 17:25; Start 11/06/17 at 16:15; Stop 11/06/17 at 16:16; Status DC Multivitamins/ Minerals Therapeutic (Theragran M Tab) 1 tab DAILY PO Last administered on 11/11/17 08:58; Start 11/07/17 at 09:00; Stop 11/12/17 at 08:59 ; Status DC Ondansetron HCl (Zofran Inj) 4 mg Q6H PRN IV PUSH NAUSEA OR VOMITING Last administered on 11/07/17at 07:53; Start 11/06/17 at 16:15 Oxycodone HCl (Roxicodone) 5 mg Q6H PRN PO PAIN SCALE 4 TO 10 Last administered on 12/04/17 08:57; Start 11/07/17 at 17:00 Pantoprazole Sodium (Protonix) 40 mg BID PO Last administered on 12/04/17 08:59 ; Start 11/16/17 at 21:00 Paroxetine HCl (Paxil) 40 mg DAILY PO Last administered on 12/04/17 09:00; Start 11/07/17 at 09:00 Phytonadione (Mephyton Liq) 5 mg DAILY PO Last administered on 11/08/17at 09:00 ; Start 11/06/17 at 20:30; Stop 11/08/17 at 20:29; Status DC Potassium Chloride 30 meq/ Sodium Chloride 1,015 ml @ 100 mls/hr Q10H9M IV Last administered on 11/06/17at 19:37; Start 11/06/17 at 17:00; Stop 11/07/17 at 00: 28; Status DC Potassium Chloride/Sodium Chloride 1,000 ml @ 42 mls/hr [id number] IV Last administered on 11/22/17at 08:18; Start 11/09/17 at 16:45; Stop 11/22/17 at 12:06 ; Status DC Potassium Phosphate (K-Phos) 2,000 mg UNSCH PRN PO/TUBE SEE LABEL COMMENTS; Start 11/06/17 at 17:45; Stop 11/07/17 at 13:00; Status DC Potassium Phosphate 15 mmol/ Sodium Chloride 155 ml @ 38.75 mls/ hr ONCE ONCE IV Last administered on 11/13/17at 05:40; Start 11/13/17 at 04:00; Stop at 07:59; Status DC Potassium Phosphate 30 mmol/ Sodium Chloride 260 ml @ 43.333 mls/ hr ONCE ONCE IV Last administered on 11/09/17at 19:13; Start 11/09/17 at 18:00; Stop 05/19 at 23:59; Status DC Potassium Bicarb/ Potassium Chloride (K-Lyte Cl Eff) 50 meq ONCE ONCE PO Last administered on 11/18/17at 04:54; Start 11/18/17 at 04:45; Stop 11/18/17 at 04:46; Status DC Potassium Chloride (KCl) 60 meq TIDAC PO Last administered on 12/04/17at 09:12; Start 11/29/17 at 12:00 Potassium Phos/ Sodium Phos (K-Phos Neutral) 250 mg Q8HR PO Last administered on 11/25/17at 06:12; Start 11/11/17 at 09:00; Stop 11/25/17 at 09:53; Status DC Prednisone (Deltasone) 10 mg BID PO Last administered on 12/04/17at 09:01; Start 12/02/17 at 09:00 Rifaximin (Xifaxan) 550 mg BID PO Last administered on 6/5/18at 08:59; Start at 21:00 Sodium Chloride 250 ml @ 0 mls/hr BOLUS ONCE IV ; Start 11/12/17 at 14:45; Stop 11/12/17 at 14:46; Status DC Sodium Chloride (NS Flush) UNSCH PRN IV FLUSH SEE PROTOCOL; Start 11/08/17 at 12:00 Sodium Phosphate 15 mmol/Sodium Chloride 155 ml @ 38.75 mls/ hr ONCE ONCE IV Last administered on 11/10/17at 12:00; Start 11/10/17 at 10:45; Stop 11/10/17 at 14:44; Status DC Sodium Phosphate 30 mmol/Sodium Chloride 260 ml @ 43.333 mls/ hr ONCE ONCE IV Last administered on 11/12/17at 09:21; Start 11/12/17 at 06:45; Stop 11/12/17 at 12:44; Status DC Spironolactone (Aldactone) 100 mg BID@09,18 PO Last administered on 12/04/17at 09 :00; Start 11/25/17 at 18:00 Thiamine HCl (Vitamin B1) 100 mg DAILY PO Last administered on 12/04/17at 09:01; Start 11/07/17 at 09:00 Thiamine HCl 100 mg/Sodium Chloride 101 ml @ 101 mls/hr ONCE ONCE IV Last administered on 11/07/17at 01:13; Start 11/07/17 at 00:45; Stop 11/07/17 at 01:44; Status DC A/P Problem List: (1) Acute liver failure ICD Code: K72.00 - Acute and subacute hepatic failure without coma Status: Acute (2) Hyponatremia ICD Code: E87.1 - Hypo-osmolality and hyponatremia Status: Acute (3) Hypokalemia ICD Code: E87.6 - Hypokalemia Status: Acute (4) Chronic pancreatitis ICD Code: K86.1 - Other chronic pancreatitis Status: Acute (5) Alcohol abuse ICD Code: F10.10 - Alcohol abuse Status: Chronic (6) Hypomagnesemia ICD Code: E83.42 - Hypomagnesemia Status: Acute (7) Diabetes ICD Code: E11.9 - Type 2 diabetes mellitus without complications (8) Elevated LFTs ICD Code: R79.89 - Other specified abnormal findings of blood chemistry (9) Hyperammonemia ICD Code: E72.20 - Disorder of urea cycle metabolism, unspecified Assessment and Plan A/P Hyperglycemia Follow blood sugars Insulin sliding scale Acute liver failure Cirrhosis End-stage liver disease Related to alcohol abuse Continue to monitor LFTs Continue to monitor bilirubin Monitor ammonia level Aldactone to manage edema Hyponatremia Resolved Related to alcohol abuse Hypomagnesia will replace Follow levels Hypokalemia now potassium level on high side hold p.o. supplementation monitor Chronic pancreatitis Continue Creon Alcohol abuse history Patient recommended no longer to drink alcohol Diabetes mellitus type 2 Follow blood sugars Insulin sliding scale Diabetic diet Coagulopathy Improved leukocytosis due to steroids?- remains afebrile. will monitor. hematology evaluation offered but the patient wants to go home and have a f/u with his pcp. Diarrhea better Imodium Lactulose on hold Failure to thrive Continue Megace DVT prophylaxis SCDs Discharge Planning discharge planning within the next 24 hrs- if electrolytes stable. f/u; pcp and GI. see med list. d/w the patient. time spent 35 min. Problem Qualifiers (1) Acute liver failure: Qualified Codes: K72.00 - Acute and subacute hepatic failure without coma (2) Chronic pancreatitis: Qualified Codes: K86.0 - Alcohol-induced chronic pancreatitis Amparo Castro MD Dec 04, 2017 10:18
[2017-12-04] MEDS ORDERED: POTA-163 PO (10:19)
[2017-12-04 10:53] LABS: HEMATOCRIT 34.8 % (39.0-51.0); HEMOGLOBIN 11.5 GM/DL (13.0-17.0); MEAN CELL VOLUME 96.5 FL (80.0-100.0); MEAN CORPUSCULAR HEMOGLOBIN 31.8 PG (27.0-34.0); MEAN PLATELET VOLUME 8.3 FL (7.0-11.0); PLATELET COUNT 483 TH/MM3 (150-450); RED BLOOD COUNT 3.61 MIL/MM3 (4.50-5.90); RED CELL DISTRIBUTION WIDTH 15.3 % (11.6-17.2); WHITE BLOOD COUNT 29.6 TH/MM3 (4.0-11.0)
--- NOTE | 2017-12-04 15:45 | HHI.NPPN ---
Subjective History of Present Illness 42-year-old male with a past medical history of chronic alcoholism and chronic liver disease, history of pancreatitis, diabetes mellitus, depression, who was admitted with nausea, vomiting and epigastric pain. I was called to see the patient because of low potassium and electrolyte disorder. The patient has history of hypokalemia in the past and his potassium has been low in the past. Additional Remarks No acute complaints. Abdomen distended. Potassium elevated at 5.3 (Megha Del Cid) Review of Systems Respiratory Respiratory Remarks Denies SOB (Megha Del Cid) Cardiovascular Cardiac Remarks Denies CP (Megha Del Cid) Gastrointestinal GI Remarks loose stools (Megha Del Cid) Objective Data Data 12/04/17 12/05/17 19:00 07:00 Intake Total 100 ml Balance 100 ml IV Total 100 ml Vital Signs Date Time Temp Pulse Resp B/P (MAP) Pulse Ox O2 Delivery O2 Flow Rate FiO2 12/04/17 15:27 78 12/04/17 12:24 98.3 80 18 142/92 (109) 97 12/04/17 08:28 98.0 78 18 132/87 (102) 97 12/04/17 05:00 97.2 91 18 125/80 (95) 99 12/04/17 00:15 98.1 88 18 131/87 (102) 97 12/03/17 20:33 98.1 89 18 132/83 (99) 98 12/03/17 16:53 85 12/03/17 16:27 98.0 83 18 134/84 (101) 98 (Megha Del Cid) -: 12/04/17 0952 12/04/17 0615 Imaging Last Impressions Upper Extremity Ultrasound 11/20/17 0000 Signed Impressions: CONCLUSION: 1. No evidence of DVT. Central Venous Line 11/08/17 0000 Signed Impressions: Service Date/Time: October 11:47 - CONCLUSION: Uncomplicated line placement as above. Merlin Monteiro MD Abdomen/Pelvis CT 11/06/17 1137 Signed Impressions: Service Date/Time: Monday, November 06, 2017 14:50 - CONCLUSION: 1. Findings of chronic pancreatitis with calcifications in the head and uncinate process, dilation of the pancreatic duct and marked atrophy of the mid body and tail. 2. Diffuse hepatic fatty infiltration. No focal mass lesions. 3. Findings of portal hypertension with a portosystemic shunt emanating from the origin of the portal vein and draining into the left renal vein. 4. Cholelithiasis Merlin Monteiro MD ([facility] CHARGE COORDINATOR) Physical Exam General Appearance: No Acute Distress, Comfortable (GellermannMegha. CHARGE COORDINATOR) Eyes Eye Exam: Pupils Equal (GellermannLinhMegha M. CHARGE COORDINATOR) Throat Throat Exam: Oral Mucosa [place] & Moist (GellerLinh goldmanne M. CHARGE COORDINATOR) Neck Neck Exam: Neck Supple (GellerMegha goldman M. CHARGE COORDINATOR) Pulmonary Resp Exam: Breath Sounds Equal, No Distress (GellerMegha goldman M. CHARGE COORDINATOR) Cardiology CV Exam: Regular, Normal Sinus Rhythm (ToddlerMegha goldman. CHARGE COORDINATOR) Gastrointestinal/Abdomen GI Exam: Soft, Non-Tender, Bowel Sounds Present, Distended (ToddlerMegha goldman. CHARGE COORDINATOR) Extremeties Extremities Exam: Trace Edema (Megha Del Cid M. CHARGE COORDINATOR) Neurologic Neuro Exam: Alert, Awake (ToddlerMegha goldman. CHARGE COORDINATOR) Psychiatric Psych Exam: Appropriate Responses (Megha Del Cid. CHARGE COORDINATOR) Assessment/Plan Electrolyte Assessment: Hypokalemia Problem List: (1) Hypertension ICD Codes: I10 - Hypertension Status: Chronic Plan: well controlled (2) Alcohol intoxication ICD Codes: F10.129 - Alcohol abuse with intoxication, unspecified Status: Acute (3) Chronic pancreatitis ICD Codes: K86.1 - Other chronic pancreatitis Status: Acute (4) Acute liver failure ICD Codes: K72.00 - Acute and subacute hepatic failure without coma Status: Acute (5) Hypokalemia ICD Codes: E87.6 - Hypokalemia Status: Acute Plan: Potassium level at 5.3 this morning and potassium replacement has been discontinued Potassium recheck ordered If recheck is not improved may need to reduce Aldactone. (6) Hyponatremia ICD Codes: E87.1 - Hypo-osmolality and hyponatremia Status: Acute Plan: Resolved (7) Hypomagnesemia ICD Codes: E83.42 - Hypomagnesemia Status: Acute Plan: On oral replacement IV given today with recheck pending (8) Alcohol withdrawal ICD Codes: F10.239 - Alcohol withdrawal syndrome Status: Acute (Megha Del Cid) Problem List: (1) Hypertension ICD Codes: I10 - Hypertension Status: Chronic Plan: well controlled (2) Alcohol intoxication ICD Codes: F10.129 - Alcohol abuse with intoxication, unspecified Status: Acute (3) Chronic pancreatitis ICD Codes: K86.1 - Other chronic pancreatitis Status: Acute (4) Acute liver failure ICD Codes: K72.00 - Acute and subacute hepatic failure without coma Status: Acute (5) Hypokalemia ICD Codes: E87.6 - Hypokalemia Status: Acute Plan: Potassium level at 5.3 this morning and potassium replacement has been discontinued Potassium recheck ordered If recheck is not improved may need to reduce Aldactone. Patient seen and examined, agree with above. Kcl replacement stopped. if K remain high, decrease Aldactone. (6) Hyponatremia ICD Codes: E87.1 - Hypo-osmolality and hyponatremia Status: Acute Plan: Resolved (7) Hypomagnesemia ICD Codes: E83.42 - Hypomagnesemia Status: Acute Plan: On oral replacement IV given today with recheck pending (8) Alcohol withdrawal ICD Codes: F10.239 - Alcohol withdrawal syndrome Status: Acute (Merlin Vieira MD) Problem Qualifiers (1) Hypertension: Qualified Codes: I10 - Essential (primary) hypertension (2) Chronic pancreatitis: Qualified Codes: K86.0 - Alcohol-induced chronic pancreatitis (3) Acute liver failure: Qualified Codes: K72.00 - Acute and subacute hepatic failure without coma (4) Alcohol withdrawal: Qualified Codes: F10.230 - Alcohol dependence with withdrawal, uncomplicated Megha Del Cid Dec 04, 2017 15:45 Merlin Vieira MD Dec 04, 2017 23:59
[2017-12-04] MEDS: MELATONIN 5 MG TAB PO PRN (21:54)
[2017-12-04] MEDS: INSULIN DETEMIR 100 UNITS/ML VIAL SQ SCH (21:55)
[2017-12-05] VITALS (10 sets, daily range): BP systolic 116–151; BP diastolic 70–92; PULSE 68–101; RESP 18; TEMP 97.3–98.9; O2SAT 96–99
[2017-12-05] MEDS: INSULIN ASPART SUPPLEMENTAL SCALE SQ SCH ×4 (08:00→23:00)
[2017-12-05] MEDS: SODIUM CHLORIDE 0.9% FLUSH 10 ML FLUSH IV FLUSH SCH ×3 (09:00→20:21)
[2017-12-05] MEDS: LIPASE/PROTEASE/AMYLASE (12,000/38,000/60,000) CAP PO SCH ×3 (09:26→18:12)
[2017-12-05] MEDS: PARoxetine HCL 20 MG TAB PO SCH (09:26)
[2017-12-05] MEDS: PANTOPRAZOLE SOD 40 MG DELAYED RELEASE TAB PO SCH ×2 (09:26→20:20)
[2017-12-05] MEDS: SPIRONOLACTONE 25 MG TAB PO SCH ×2 (09:26→18:12)
[2017-12-05] MEDS: predniSONE 10 MG TAB PO SCH (09:27)
[2017-12-05] MEDS: RIFAXIMIN 550 MG TAB PO SCH ×2 (09:27→20:20)
[2017-12-05] MEDS: MEGESTROL ACETATE SUSP 400 MG/10 ML CUP PO SCH (09:27)
[2017-12-05] MEDS: CALCIUM CARBONATE 1.25 GM (CA 500 MG) TAB PO SCH ×2 (09:27→20:20)
[2017-12-05] MEDS: THIAMINE HCL 100 MG TAB PO SCH (09:27)
[2017-12-05] MEDS: LORazepam 1 MG TAB PO PRN ×3 (09:34→22:59)
[2017-12-05] MEDS: MAGNESIUM OXIDE 400 MG TAB PO SCH ×2 (09:34→20:21)
[2017-12-05 09:54] LABS: AUTOMATED NEUTROPHIL # 21.9 TH/MM3 (1.8-7.7); BASOPHIL # 0.2 TH/MM3 (0-0.2); BASOPHIL % 0.5 % (0.0-2.0); EOSINOPHIL # 0.6 TH/MM3 (0-0.4); HEMATOCRIT 35.1 % (39.0-51.0); HEMOGLOBIN 11.8 GM/DL (13.0-17.0); LYMPH % 23.8 % (9.0-44.0); LYMPHOCYTE # 7.4 TH/MM3 (1.0-4.8); MEAN CELL VOLUME 97.5 FL (80.0-100.0); MEAN CORPUSCULAR HEMOGLOBIN 32.7 PG (27.0-34.0); MEAN CORPUSCULAR HGB CONC 33.5 % (32.0-36.0); MEAN PLATELET VOLUME 8.2 FL (7.0-11.0); MONO % 3.4 % (0.0-8.0); MONOCYTE # 1.1 TH/MM3 (0-0.9); NEUT % 70.3 % (16.0-70.0); PLATELET COUNT 438 TH/MM3 (150-450); RED CELL DISTRIBUTION WIDTH 15.6 % (11.6-17.2); WHITE BLOOD COUNT 31.1 TH/MM3 (4.0-11.0)
--- NOTE | 2017-12-05 10:15 | HHI.PR ---
Subjective Remarks in no acute distress. afebrile. has minimal abdominal pain. no nausea/ emesis or diarrhea. Objective Vitals Vital Signs Date Time Temp Pulse Resp B/P (MAP) Pulse Ox O2 Delivery O2 Flow Rate FiO2 12/05/17 10:08 100 12/05/17 08:00 97.7 85 18 150/92 (111) 97 12/05/17 06:25 79 12/05/17 04:51 98.6 68 18 151/81 (104) 96 12/05/17 01:47 98.9 80 18 129/85 (100) 98 12/04/17 20:25 98.3 93 18 132/90 (104) 95 12/04/17 16:00 98.4 90 18 134/89 (104) 98 12/04/17 15:27 78 12/04/17 12:24 98.3 80 18 142/92 (109) 97 I/O 12/04/17 12/04/17 12/04/17 12/05/17 12/05/17 12/05/17 07:00 15:00 23:00 07:00 15:00 23:00 Intake Total 580 ml Balance 580 ml Intake Oral 480 ml IV Total 100 ml # Voids 3 2 Result Diagram: 12/05/17 0850 12/04/17 2330 Imaging Last Impressions Upper Extremity Ultrasound 11/20/17 0000 Signed Impressions: CONCLUSION: 1. No evidence of DVT. Central Venous Line 11/08/17 0000 Signed Impressions: Service Date/Time: October 11:47 - CONCLUSION: Uncomplicated line placement as above. Merlin Monteiro MD Abdomen/Pelvis CT 11/06/17 1137 Signed Impressions: Service Date/Time: Monday, November 06, 2017 14:50 - CONCLUSION: 1. Findings of chronic pancreatitis with calcifications in the head and uncinate process, dilation of the pancreatic duct and marked atrophy of the mid body and tail. 2. Diffuse hepatic fatty infiltration. No focal mass lesions. 3. Findings of portal hypertension with a portosystemic shunt emanating from the origin of the portal vein and draining into the left renal vein. 4. Cholelithiasis Merlin Monteiro MD Objective Remarks GENERAL: in no apparent distress. CARDIOVASCULAR: Regular rate and regular rhythm without murmurs, gallops, or rubs. RESPIRATORY: Clear to auscultation. Breath sounds equal bilaterally. No wheezes , rales, or rhonchi. GASTROINTESTINAL: Abdomen soft, mild generalized tenderness, nondistended. Normal, active bowel sounds MUSCULOSKELETAL: Extremities without clubbing, cyanosis, or edema. NEURO: Alert & Oriented x4 to person, place, time, situation. Moves all ext x4 Procedures central line placement. Medications and IVs Inpatient Medications Amylase/Lipase/ Protease (Creon 12-38-60) 1 cap TID PO Last administered on 12/05 09:26; Start 11/06/17 at 18:00 Calcium Carbonate (Oscal) 500 mg Q12HR PO Last administered on 12/05/17 09:27; Start 11/15/17 at 21:00 Calcium Chloride 2 gm/Sodium Chloride 120 ml @ 120 mls/hr ONCE ONCE IV Last administered on 11/21/17 21:19; Start 11/21/17 at 18:45; Stop 11/21/17 at 19:44 ; Status DC Calcium Gluconate 1 gm/Dextrose 110 ml @ 110 mls/hr ONCE ONCE IV Last administered on 11/16/17at 09:58; Start 11/16/17 at 10:00; Stop 11/16/17 at 10:59 ; Status DC Cholestyramine Resin (Questran 4 Gm Pkt) 4 gm Q8HR PO Last administered on 11/24at 13:18; Start 11/21/17 at 10:00; Status Future Hold Dextrose (D50w (Vial) Inj) 50 ml UNSCH PRN IV PUSH HYPOGLYCEMIA-SEE COMMENTS; Start 11/28/17 at 09:30 Flumazenil (Romazicon Inj) 0.2 mg Q1M PRN IV PUSH SEE LABEL COMMENTS; Start 11/06/17 at 16:15 Folic Acid (Folate) 1 mg DAILY PO Last administered on 11/11/17at 08:54; Start 11/07/17 at 09:00; Stop 11/12/17 at 08:59; Status DC Glucagon (Glucagon Inj) 1 mg UNSCH PRN OTHER HYPOGLYCEMIA-SEE COMMENTS; Start 11/28/17 at 09:30 Insulin Aspart (NovoLOG SUPPLEMENTAL SCALE) 1 ACHS SLIDING SCALE SQ Last administered on 12/04/17at 21:55; Start 11/28/17 at 12:00 Insulin Detemir (Levemir Inj) 10 units HS SQ Last administered on 12/04/17at 21: 55; Start 12/04/17 at 21:00 Lactulose (Lactulose Liq) 15 ml DAILY PO Last administered on 11/20/17at 08:10; Start 11/20/17 at 09:00; Status Future Hold Loperamide HCl (Imodium) 2 mg Q6H PRN PO diarrhea Last administered on at 18:23; Start 11/25/17 at 14:00 Lorazepam (Ativan Inj) 2 mg Q15M PRN IV PUSH CIWA > 20; Start 11/06/17 at 16:15 Lorazepam (Ativan) 0.5 mg ONCE ONCE PO Last administered on 11/19/17at 11:10; Start 11/19/17 at 11:00; Stop 11/19/17 at 11:05; Status DC Magnesium Oxide (Mag-Ox) 800 mg TID PO Last administered on 11/24/17at 08:47; Start 11/19/17 at 13:00; Status Future Hold Magnesium Sulfate 2 gm/Sodium Chloride 100 ml @ 50 mls/hr UNSCH PRN IV For Magnesium 1.2 - 1.6 mg/dL; Start 11/06/17 at 17:45; Stop 11/07/17 at 13:00; Status DC Magnesium Sulfate 4 gm/Dextrose 100 ml @ 25 mls/hr ONCE IV Last administered on 11/06/17at 18:52; Start 11/06/17 at 17:00; Stop 11/06/17 at 20:59; Status DC Magnesium Sulfate 4 gm/Sodium Chloride 100 ml @ 50 mls/hr UNSCH PRN IV For Magnesium 0.9 - 1.1 mg/dL; Start 11/06/17 at 17:45; Stop 11/07/17 at 13:00; Status DC Magnesium Sulfate/ Dextrose 100 ml @ 100 mls/hr ONCE ONCE IV Last administered on 12/04/17at 12:21; Start 12/04/17 at 10:15; Stop 12/04/17 at 11:14; Status DC Megestrol Acetate (Megace Liq) 400 mg DAILY PO Last administered on 12/05/17at 09 :27; Start 11/22/17 at 13:00 Melatonin (Melatonin) 5 mg HS PRN PO INSOMNIA Last administered on 12/04/17 21: 54; Start 11/18/17 at 20:30 Methylprednisolone Sodium Succinate (SoluMEDROL INJ) 40 mg Q12HR IV PUSH Last administered on 11/30/17 09:47; Start 11/27/17 at 21:00; Stop 11/30/17 at 11:08; Status DC Metoclopramide HCl (Reglan Inj) 10 mg ONCE ONCE IV PUSH Last administered on at 17:24; Start 11/06/17 at 14:45; Stop 11/06/17 at 14:50; Status DC Metoprolol Succinate (Toprol Xl) 25 mg DAILY PO Last administered on 11/17/17 09:51; Start 11/07/17 at 09:00; Status Future Hold Miscellaneous (Pill Splitter) 1 ea UNSCH PRN OTHER SEE LABEL COMMENTS; Start at 14:00 Morphine Sulfate (Morphine Inj) 4 mg ONCE ONCE IV PUSH Last administered on 11/06/17at 17:25; Start 11/06/17 at 16:15; Stop 11/06/17 at 16:16; Status DC Multivitamins/ Minerals Therapeutic (Theragran M Tab) 1 tab DAILY PO Last administered on 11/11/17 08:58; Start 11/07/17 at 09:00; Stop 11/12/17 at 08:59 ; Status DC Ondansetron HCl (Zofran Inj) 4 mg Q6H PRN IV PUSH NAUSEA OR VOMITING Last administered on 11/07/17at 07:53; Start 11/06/17 at 16:15 Oxycodone HCl (Roxicodone) 5 mg Q6H PRN PO PAIN SCALE 4 TO 10 Last administered on 12/05/17 09:26; Start 11/07/17 at 17:00 Pantoprazole Sodium (Protonix) 40 mg BID PO Last administered on 12/05/17 09:26 ; Start 11/16/17 at 21:00 Paroxetine HCl (Paxil) 40 mg DAILY PO Last administered on 12/05/17 09:26; Start 11/07/17 at 09:00 Phytonadione (Mephyton Liq) 5 mg DAILY PO Last administered on 11/08/17at 09:00 ; Start 11/06/17 at 20:30; Stop 11/08/17 at 20:29; Status DC Potassium Chloride 30 meq/ Sodium Chloride 1,015 ml @ 100 mls/hr Q10H9M IV Last administered on 11/06/17at 19:37; Start 11/06/17 at 17:00; Stop 11/07/17 at 00: 28; Status DC Potassium Chloride/Sodium Chloride 1,000 ml @ 42 mls/hr [id number] IV Last administered on 11/22/17at 08:18; Start 11/09/17 at 16:45; Stop 11/22/17 at 12:06 ; Status DC Potassium Phosphate (K-Phos) 2,000 mg UNSCH PRN PO/TUBE SEE LABEL COMMENTS; Start 11/06/17 at 17:45; Stop 11/07/17 at 13:00; Status DC Potassium Phosphate 15 mmol/ Sodium Chloride 155 ml @ 38.75 mls/ hr ONCE ONCE IV Last administered on 11/13/17at 05:40; Start 11/13/17 at 04:00; Stop at 07:59; Status DC Potassium Phosphate 30 mmol/ Sodium Chloride 260 ml @ 43.333 mls/ hr ONCE ONCE IV Last administered on 11/09/17at 19:13; Start 11/09/17 at 18:00; Stop 05/19 at 23:59; Status DC Potassium Bicarb/ Potassium Chloride (K-Lyte Cl Eff) 50 meq ONCE ONCE PO Last administered on 11/18/17at 04:54; Start 11/18/17 at 04:45; Stop 11/18/17 at 04:46; Status DC Potassium Chloride (KCl) 60 meq TIDAC PO Last administered on 12/04/17at 09:12; Start 11/29/17 at 12:00; Status Future Hold Potassium Phos/ Sodium Phos (K-Phos Neutral) 250 mg Q8HR PO Last administered on 11/25/17at 06:12; Start 11/11/17 at 09:00; Stop 11/25/17 at 09:53; Status DC Prednisone (Deltasone) 10 mg DAILY PO Last administered on 12/05/17at 09:27; Start 12/05/17 at 09:00 Rifaximin (Xifaxan) 550 mg BID PO Last administered on 12/05/17at 09:27; Start at 21:00 Sodium Chloride 250 ml @ 0 mls/hr BOLUS ONCE IV ; Start 11/12/17 at 14:45; Stop 11/12/17 at 14:46; Status DC Sodium Chloride (NS Flush) UNSCH PRN IV FLUSH SEE PROTOCOL; Start 11/08/17 at 12:00 Sodium Phosphate 15 mmol/Sodium Chloride 155 ml @ 38.75 mls/ hr ONCE ONCE IV Last administered on 11/10/17at 12:00; Start 11/10/17 at 10:45; Stop 11/10/17 at 14:44; Status DC Sodium Phosphate 30 mmol/Sodium Chloride 260 ml @ 43.333 mls/ hr ONCE ONCE IV Last administered on 11/12/17at 09:21; Start 11/12/17 at 06:45; Stop 11/12/17 at 12:44; Status DC Spironolactone (Aldactone) 100 mg BID@09,18 PO Last administered on 12/05/17at 09 :26; Start 11/25/17 at 18:00 Thiamine HCl (Vitamin B1) 100 mg DAILY PO Last administered on 12/05/17at 09:27; Start 11/07/17 at 09:00 Thiamine HCl 100 mg/Sodium Chloride 101 ml @ 101 mls/hr ONCE ONCE IV Last administered on 11/07/17at 01:13; Start 11/07/17 at 00:45; Stop 11/07/17 at 01:44; Status DC A/P Problem List: (1) Acute liver failure ICD Code: K72.00 - Acute and subacute hepatic failure without coma Status: Acute (2) Hyponatremia ICD Code: E87.1 - Hypo-osmolality and hyponatremia Status: Acute (3) Hypokalemia ICD Code: E87.6 - Hypokalemia Status: Acute (4) Chronic pancreatitis ICD Code: K86.1 - Other chronic pancreatitis Status: Acute (5) Alcohol abuse ICD Code: F10.10 - Alcohol abuse Status: Chronic (6) Hypomagnesemia ICD Code: E83.42 - Hypomagnesemia Status: Acute (7) Diabetes ICD Code: E11.9 - Type 2 diabetes mellitus without complications (8) Elevated LFTs ICD Code: R79.89 - Other specified abnormal findings of blood chemistry (9) Hyperammonemia ICD Code: E72.20 - Disorder of urea cycle metabolism, unspecified Assessment and Plan A/P Hyperglycemia Follow blood sugars Insulin sliding scale Acute liver failure Cirrhosis End-stage liver disease Related to alcohol abuse Continue to monitor LFTs Continue to monitor bilirubin Monitor ammonia level Aldactone to manage edema Hyponatremia Resolved Related to alcohol abuse Hypomagnesia replaced. Hypokalemia now potassium level on high side hold p.o. supplementation monitor Chronic pancreatitis Continue Creon Alcohol abuse history Patient recommended no longer to drink alcohol Diabetes mellitus type 2 Follow blood sugars Insulin sliding scale Diabetic diet Coagulopathy Improved leukocytosis due to steroids?-still elevated despite decreasing the steroids. blood cultures pending. will consult hematology. Diarrhea resolved. Failure to thrive Continue Megace DVT prophylaxis SCDs Discharge Planning awaiting blood cultures/ hematology evaluation. Problem Qualifiers (1) Acute liver failure: Qualified Codes: K72.00 - Acute and subacute hepatic failure without coma (2) Chronic pancreatitis: Qualified Codes: K86.0 - Alcohol-induced chronic pancreatitis Amparo Castro MD Dec 05, 2017 10:15
[2017-12-05 10:50] LABS: BANDS 1 % (0-6); LYMPHOCYTES 11 % (9-44); MONOCYTES 3 % (0-8); NEUTROPHIL # MANUAL DIFF 25.5 TH/MM3 (1.8-7.7); POLYS (SEG NEUTROPHILS) 81 % (16-70); TARGET CELLS 2+ (NORMAL)
[2017-12-05 10:51] LABS: TOXIC GRANULATION 1+ (NORMAL)
[2017-12-05 11:42] LABS: BICARBONATE 22.9 MEQ/L (21.0-32.0); CALCIUM 7.8 MG/DL (8.5-10.1); CREATININE 0.74 MG/DL (0.60-1.30); MAGNESIUM 1.1 MG/DL (1.5-2.5)
[2017-12-05] MEDS: MAGNESIUM SULFATE 1 GM PREMIX 100 ML IV SCH ×2 (13:16→15:47)
[2017-12-05] MEDS: POTASSIUM CHLORIDE 20 MEQ CONTROLLED RELEASE TAB PO SCH ×2 (13:17→20:20)
--- NOTE | 2017-12-05 14:29 | HHI.NPPN ---
Subjective History of Present Illness 42-year-old male with a past medical history of chronic alcoholism and chronic liver disease, history of pancreatitis, diabetes mellitus, depression, who was admitted with nausea, vomiting and epigastric pain. I was called to see the patient because of low potassium and electrolyte disorder. The patient has history of hypokalemia in the past and his potassium has been low in the past. Additional Remarks No acute complaints. Abdomen distended. Potassium Level at 3.6. (Megha Del Cid) Review of Systems Respiratory Respiratory Remarks Denies SOB (Megha Del Cid) Cardiovascular Cardiac Remarks Denies CP (Megha Del Cid) Gastrointestinal GI Remarks loose stools (Megha Del Cid) Objective Data Data Vital Signs Date Time Temp Pulse Resp B/P (MAP) Pulse Ox O2 Delivery O2 Flow Rate FiO2 12/05/17 13:47 101 12/05/17 12:00 97.3 90 18 116/72 (87) 98 12/05/17 10:08 100 12/05/17 08:00 97.7 85 18 150/92 (111) 97 12/05/17 06:25 79 12/05/17 04:51 98.6 68 18 151/81 (104) 96 12/05/17 01:47 98.9 80 18 129/85 (100) 98 12/04/17 20:25 98.3 93 18 132/90 (104) 95 12/04/17 16:00 98.4 90 18 134/89 (104) 98 12/04/17 15:27 78 (Megha Del Cid) -: 12/05/17 0850 12/05/17 0850 Microbiology 12/04/17 Aerobic Blood Culture - Preliminary, Resulted NO GROWTH IN 1 DAY 12/04/17 Anaerobic Blood Culture - Preliminary, Resulted NO GROWTH IN 1 DAY 12/04/17 Aerobic Blood Culture - Preliminary, Resulted NO GROWTH IN 1 DAY 12/04/17 Anaerobic Blood Culture - Preliminary, Resulted NO GROWTH IN 1 DAY (Megha Del Cid) Physical Exam General Appearance: No Acute Distress, Comfortable (Megha Del Cid) Eyes Eye Exam: Pupils Equal (Megha Del Cid) Throat Throat Exam: Oral Mucosa [place] & Moist (Megha Del Cid) Neck Neck Exam: Neck Supple (Megha Del Cid) Pulmonary Resp Exam: Breath Sounds Equal, No Distress (Megha Del Cid) Cardiology CV Exam: Regular, Normal Sinus Rhythm (Megha Del Cid) Gastrointestinal/Abdomen GI Exam: Soft, Non-Tender, Bowel Sounds Present, Distended (Megha Del Cid) Extremeties Extremities Exam: Trace Edema (Megha Del Cid) Neurologic Neuro Exam: Alert, Awake (Megha Del Cid) Psychiatric Psych Exam: Appropriate Responses (Megha Del Cid) Assessment/Plan Electrolyte Assessment: Hypokalemia Problem List: (1) Hypertension ICD Codes: I10 - Hypertension Status: Chronic Plan: well controlled (2) Alcohol intoxication ICD Codes: F10.129 - Alcohol abuse with intoxication, unspecified Status: Acute (3) Chronic pancreatitis ICD Codes: K86.1 - Other chronic pancreatitis Status: Acute (4) Acute liver failure ICD Codes: K72.00 - Acute and subacute hepatic failure without coma Status: Acute (5) Hypokalemia ICD Codes: E87.6 - Hypokalemia Status: Acute Plan: Potassium level at 3.7 this morning on scheduled replacement Continue Aldactone. (6) Hyponatremia ICD Codes: E87.1 - Hypo-osmolality and hyponatremia Status: Acute Plan: Resolved (7) Hypomagnesemia ICD Codes: E83.42 - Hypomagnesemia Status: Acute Plan: Magnesium 1.1 IV given on oral replacement (8) Alcohol withdrawal ICD Codes: F10.239 - Alcohol withdrawal syndrome Status: Acute (9) Leukocytosis ICD Codes: D72.829 - Elevated white blood cell count, unspecified Plan: Hematology consulted. (Megha Del Cid) Problem List: (1) Hypertension ICD Codes: I10 - Hypertension Status: Chronic Plan: well controlled (2) Alcohol intoxication ICD Codes: F10.129 - Alcohol abuse with intoxication, unspecified Status: Acute (3) Chronic pancreatitis ICD Codes: K86.1 - Other chronic pancreatitis Status: Acute (4) Acute liver failure ICD Codes: K72.00 - Acute and subacute hepatic failure without coma Status: Acute (5) Hypokalemia ICD Codes: E87.6 - Hypokalemia Status: Acute Plan: Potassium level at 3.7 this morning on scheduled replacement Continue Aldactone. Patient seen and examined, agree with above. K is stable, continue Aldactone. (6) Hyponatremia ICD Codes: E87.1 - Hypo-osmolality and hyponatremia Status: Acute Plan: Resolved (7) Hypomagnesemia ICD Codes: E83.42 - Hypomagnesemia Status: Acute Plan: Magnesium 1.1 IV given on oral replacement (8) Alcohol withdrawal ICD Codes: F10.239 - Alcohol withdrawal syndrome Status: Acute (9) Leukocytosis ICD Codes: D72.829 - Elevated white blood cell count, unspecified Plan: Hematology consulted. (Merlin Vieira MD) Problem Qualifiers (1) Hypertension: Qualified Codes: I10 - Essential (primary) hypertension (2) Chronic pancreatitis: Qualified Codes: K86.0 - Alcohol-induced chronic pancreatitis (3) Acute liver failure: Qualified Codes: K72.00 - Acute and subacute hepatic failure without coma (4) Alcohol withdrawal: Qualified Codes: F10.230 - Alcohol dependence with withdrawal, uncomplicated Megha Del Cid Dec 05, 2017 14:29 Merlin Vieira MD Dec 06, 2017 13:49
[2017-12-05] MEDS: INSULIN DETEMIR 100 UNITS/ML VIAL SQ SCH (22:59)
[2017-12-06] VITALS (8 sets, daily range): BP systolic 105–149; BP diastolic 60–97; PULSE 58–91; RESP 18–20; TEMP 98–98.3; O2SAT 97–98
[2017-12-06] MEDS: LORazepam 1 MG TAB PO PRN ×4 (06:07→21:05)
[2017-12-06] MEDS: INSULIN ASPART SUPPLEMENTAL SCALE SQ SCH ×4 (08:00→21:05)
--- NOTE | 2017-12-06 08:19 | MB ---
cc: Bianka Sarabia MD DATE: 12/05/2017 CHIEF COMPLAINT: Leukocytosis. HISTORY OF PRESENT ILLNESS: Mr. Mo is a 42-year-old gentleman with a history of chronic pancreatitis, alcohol dependence, diabetes, depression, tobacco abuse, who was initially admitted to the hospital on 11/06/2017 with nausea, vomiting and epigastric abdominal pain. He has had recurrent hospital visits due to complications from alcohol abuse. He continues to drink at least 3 tall glasses of vodka daily. On admission, he had inability to tolerate p.o. On admission, he was found to have electrolyte abnormalities including hyponatremia, hypokalemia, and liver injury. While inpatient, he has been evaluated by the gastroenterology team and the nephrology team. PAST MEDICAL HISTORY: 1. Alcoholism. 2. Chronic liver disease. 3. Chronic pancreatitis. 4. Diabetes. 5. Depression. PAST SURGICAL HISTORY: Tonsillectomy. REVIEW OF SYSTEMS: As above in HPI, all others negative. SOCIAL HISTORY: Alcohol and tobacco use. Denies illegal drug use. FAMILY HISTORY: No family history of elevated white blood cell count. ALLERGIES: NO KNOWN DRUG ALLERGIES. PHYSICAL EXAMINATION: GENERAL: Thin, chronically ill-appearing man, in no distress, resting comfortably in bed. NECK: Supple with no lymphadenopathy. HEENT: Oropharynx clear. Head normocephalic, atraumatic. NECK: Supple with no palpable lymphadenopathy. ABDOMEN: Soft, nontender, nondistended with bowel sounds present. CARDIOVASCULAR: Regular rate and rhythm. No murmurs. RESPIRATORY: Clear to auscultation bilaterally. EXTREMITIES: No edema. NEUROLOGIC: Grossly nonfocal. PSYCHIATRIC: Poor recent and remote memory. LABORATORY STUDIES: White blood cell count of 31.1; hemoglobin 11.8; platelet count is 438,000 with a differential with elevated ANC, elevated absolute lymphocyte count, elevated monocyte count and elevated eosinophil count. He also has nucleated red blood cells present as well as toxic granulation, toxic vacuolization, target cells. ASSESSMENT AND PLAN: Leukocytosis in a patient with alcohol abuse, liver disease and chronic pancreatitis. Upon review of his CBCs, his white blood cell count has been consistently elevated since hospital admission from 11/06/2017. In the past, it has been elevated, but it has returned to normal values. Hemoglobin is approximately 11-12. This has been stable throughout 2018. Platelet count has been elevated throughout admission. We will check vitamin stores including vitamin B12, folate, iron profile, and ferritin. We will also check a peripheral blood smear for pathology review. We will check ANA-2, BCR-ABL to assure that there is not any underlying bone marrow disorder. We will also check flow cytometry as well as ESR and CRP. He will need close follow up in the outpatient setting. Inpatient hematology service will continue to follow. MD BOO Hart/HARRISON , 07:24 AM , 08:18 AM MIR
[2017-12-06] MEDS: SODIUM CHLORIDE 0.9% FLUSH 10 ML FLUSH IV FLUSH SCH ×3 (08:50→21:06)
[2017-12-06] MEDS: MEGESTROL ACETATE SUSP 400 MG/10 ML CUP PO SCH (08:50)
[2017-12-06] MEDS: predniSONE 10 MG TAB PO SCH (08:51)
[2017-12-06] MEDS: THIAMINE HCL 100 MG TAB PO SCH (08:51)
[2017-12-06] MEDS: RIFAXIMIN 550 MG TAB PO SCH ×2 (08:51→21:04)
[2017-12-06] MEDS: CALCIUM CARBONATE 1.25 GM (CA 500 MG) TAB PO SCH ×2 (08:51→21:05)
[2017-12-06] MEDS: MAGNESIUM OXIDE 400 MG TAB PO SCH ×2 (08:51→21:04)
[2017-12-06] MEDS: PANTOPRAZOLE SOD 40 MG DELAYED RELEASE TAB PO SCH ×2 (08:51→21:05)
[2017-12-06] MEDS: POTASSIUM CHLORIDE 20 MEQ CONTROLLED RELEASE TAB PO SCH ×2 (08:51→21:05)
[2017-12-06] MEDS: PARoxetine HCL 20 MG TAB PO SCH (08:52)
[2017-12-06] MEDS: SPIRONOLACTONE 25 MG TAB PO SCH ×2 (08:52→17:17)
[2017-12-06] MEDS: LIPASE/PROTEASE/AMYLASE (12,000/38,000/60,000) CAP PO SCH ×3 (09:01→17:17)
--- NOTE | 2017-12-06 09:30 | HHI.NPPN ---
Subjective History of Present Illness 42-year-old male with a past medical history of chronic alcoholism and chronic liver disease, history of pancreatitis, diabetes mellitus, depression, who was admitted with nausea, vomiting and epigastric pain. I was called to see the patient because of low potassium and electrolyte disorder. The patient has history of hypokalemia in the past and his potassium has been low in the past. Additional Remarks No acute complaints. Sitting up eating breakfast. Abdomen distended. (Megha Del Cid) Review of Systems Respiratory Respiratory Remarks Denies SOB (Megha Del Cid) Cardiovascular Cardiac Remarks Denies CP (Megha Del Cid) Gastrointestinal GI Remarks loose stools (Megha Del Cid) Objective Data Data Vital Signs Date Time Temp Pulse Resp B/P (MAP) Pulse Ox O2 Delivery O2 Flow Rate FiO2 12/06/17 07:45 98.3 85 20 149/97 (114) 98 12/06/17 02:51 86 12/06/17 01:22 98.1 82 18 140/81 (100) 98 12/05/17 23:00 87 12/05/17 20:34 98.1 87 18 126/70 (88) 99 12/05/17 16:00 98.1 97 18 130/89 (103) 99 12/05/17 13:47 101 12/05/17 12:00 97.3 90 18 116/72 (87) 98 12/05/17 10:08 100 (Megha Del Cid) -: 12/05/17 0850 12/05/17 0850 Physical Exam General Appearance: No Acute Distress, Comfortable (Megha Del Cid) Eyes Eye Exam: Pupils Equal (Megha Del Cid) Throat Throat Exam: Oral Mucosa [place] & Moist (Megha Del Cid) Neck Neck Exam: Neck Supple (Megha Del Cid) Pulmonary Resp Exam: Breath Sounds Equal, No Distress (Megha Del Cid) Cardiology CV Exam: Regular, Normal Sinus Rhythm (Megha Del Cid) Gastrointestinal/Abdomen GI Exam: Soft, Non-Tender, Bowel Sounds Present, Distended (Megha Del Cid) Extremeties Extremities Exam: Trace Edema (Megha Del Cid) Neurologic Neuro Exam: Alert, Awake (Megha Del Cid) Psychiatric Psych Exam: Appropriate Responses (Megha Del Cid) Assessment/Plan Electrolyte Assessment: Hypokalemia Problem List: (1) Hypertension ICD Codes: I10 - Hypertension Status: Chronic Plan: well controlled (2) Alcohol intoxication ICD Codes: F10.129 - Alcohol abuse with intoxication, unspecified Status: Acute (3) Chronic pancreatitis ICD Codes: K86.1 - Other chronic pancreatitis Status: Acute (4) Acute liver failure ICD Codes: K72.00 - Acute and subacute hepatic failure without coma Status: Acute (5) Hypokalemia ICD Codes: E87.6 - Hypokalemia Status: Acute Plan: on scheduled replacement Continue Aldactone. (6) Hyponatremia ICD Codes: E87.1 - Hypo-osmolality and hyponatremia Status: Acute Plan: Resolved (7) Hypomagnesemia ICD Codes: E83.42 - Hypomagnesemia Status: Acute Plan: Magnesium 1.2 IV given on oral replacement (8) Alcohol withdrawal ICD Codes: F10.239 - Alcohol withdrawal syndrome Status: Acute (9) Leukocytosis ICD Codes: D72.829 - Elevated white blood cell count, unspecified Plan: Hematology consulted. Plan Nephrology will sign off please reconsult if needed. (Megha Del Cid) Problem List: (1) Hypertension ICD Codes: I10 - Hypertension Status: Chronic Plan: well controlled (2) Alcohol intoxication ICD Codes: F10.129 - Alcohol abuse with intoxication, unspecified Status: Acute (3) Chronic pancreatitis ICD Codes: K86.1 - Other chronic pancreatitis Status: Acute (4) Acute liver failure ICD Codes: K72.00 - Acute and subacute hepatic failure without coma Status: Acute (5) Hypokalemia ICD Codes: E87.6 - Hypokalemia Status: Acute Plan: on scheduled replacement Continue Aldactone. Patient seen and examined, agree with above. K remain normal , follow Mg and K, replace Mg and K as needed. (6) Hyponatremia ICD Codes: E87.1 - Hypo-osmolality and hyponatremia Status: Acute Plan: Resolved (7) Hypomagnesemia ICD Codes: E83.42 - Hypomagnesemia Status: Acute Plan: Magnesium 1.2 IV given on oral replacement (8) Alcohol withdrawal ICD Codes: F10.239 - Alcohol withdrawal syndrome Status: Acute (9) Leukocytosis ICD Codes: D72.829 - Elevated white blood cell count, unspecified Plan: Hematology consulted. (Merlin Vieira MD) Problem Qualifiers (1) Hypertension: Qualified Codes: I10 - Essential (primary) hypertension (2) Chronic pancreatitis: Qualified Codes: K86.0 - Alcohol-induced chronic pancreatitis (3) Acute liver failure: Qualified Codes: K72.00 - Acute and subacute hepatic failure without coma (4) Alcohol withdrawal: Qualified Codes: F10.230 - Alcohol dependence with withdrawal, uncomplicated Megha Del Cid Dec 06, 2017 09:30 Merlin Vieira MD Dec 06, 2017 13:54
[2017-12-06 09:32] LABS: IRON (FE) 45 MCG/DL (65-175)
--- NOTE | 2017-12-06 09:45 | HHI.PR ---
Subjective Remarks in no acute distress. no fever. no diarrhea, pain,nausea or vomiting. Objective Vitals Vital Signs Date Time Temp Pulse Resp B/P (MAP) Pulse Ox O2 Delivery O2 Flow Rate FiO2 12/06/17 07:45 98.3 85 20 149/97 (114) 98 12/06/17 02:51 86 12/06/17 01:22 98.1 82 18 140/81 (100) 98 12/05/17 23:00 87 12/05/17 20:34 98.1 87 18 126/70 (88) 99 12/05/17 16:00 98.1 97 18 130/89 (103) 99 12/05/17 13:47 101 12/05/17 12:00 97.3 90 18 116/72 (87) 98 12/05/17 10:08 100 I/O 12/05/17 12/05/17 12/05/17 12/06/17 12/06/17 12/06/17 07:00 15:00 23:00 07:00 15:00 23:00 Intake Total 880 ml 300 ml Balance 880 ml 300 ml Intake Oral 780 ml IV Total 100 ml 300 ml # Voids 2 # Bowel Movements 1 Result Diagram: 12/05/17 0850 12/05/17 0850 Imaging Last Impressions Upper Extremity Ultrasound 11/20/17 0000 Signed Impressions: CONCLUSION: 1. No evidence of DVT. Central Venous Line 11/08/17 0000 Signed Impressions: Service Date/Time: October 11:47 - CONCLUSION: Uncomplicated line placement as above. Merlin Monteiro MD Abdomen/Pelvis CT 11/06/17 1137 Signed Impressions: Service Date/Time: Monday, November 06, 2017 14:50 - CONCLUSION: 1. Findings of chronic pancreatitis with calcifications in the head and uncinate process, dilation of the pancreatic duct and marked atrophy of the mid body and tail. 2. Diffuse hepatic fatty infiltration. No focal mass lesions. 3. Findings of portal hypertension with a portosystemic shunt emanating from the origin of the portal vein and draining into the left renal vein. 4. Cholelithiasis Merlin Monteiro MD Objective Remarks GENERAL: in no apparent distress. CARDIOVASCULAR: Regular rate and regular rhythm without murmurs, gallops, or rubs. RESPIRATORY: Clear to auscultation. Breath sounds equal bilaterally. No wheezes , rales, or rhonchi. GASTROINTESTINAL: Abdomen soft, mild generalized tenderness, nondistended. Normal, active bowel sounds MUSCULOSKELETAL: Extremities without clubbing, cyanosis, or edema. NEURO: Alert & Oriented x4 to person, place, time, situation. Moves all ext x4 Procedures central line placement. Medications and IVs Inpatient Medications Amylase/Lipase/ Protease (Creon 12-38-60) 1 cap TID PO Last administered on 12/06at 09:01; Start 11/06/17 at 18:00 Calcium Carbonate (Oscal) 500 mg Q12HR PO Last administered on 12/06/17 08:51; Start 11/15/17 at 21:00 Calcium Chloride 2 gm/Sodium Chloride 120 ml @ 120 mls/hr ONCE ONCE IV Last administered on 11/21/17at 21:19; Start 11/21/17 at 18:45; Stop 11/21/17 at 19:44 ; Status DC Calcium Gluconate 1 gm/Dextrose 110 ml @ 110 mls/hr ONCE ONCE IV Last administered on 11/16/17at 09:58; Start 11/16/17 at 10:00; Stop 11/16/17 at 10:59 ; Status DC Cholestyramine Resin (Questran 4 Gm Pkt) 4 gm Q8HR PO Last administered on 11/24at 13:18; Start 11/21/17 at 10:00; Status Future Hold Dextrose (D50w (Vial) Inj) 50 ml UNSCH PRN IV PUSH HYPOGLYCEMIA-SEE COMMENTS; Start 11/28/17 at 09:30 Flumazenil (Romazicon Inj) 0.2 mg Q1M PRN IV PUSH SEE LABEL COMMENTS; Start 11/06/17 at 16:15 Folic Acid (Folate) 1 mg DAILY PO Last administered on 11/11/17at 08:54; Start 11/07/17 at 09:00; Stop 11/12/17 at 08:59; Status DC Glucagon (Glucagon Inj) 1 mg UNSCH PRN OTHER HYPOGLYCEMIA-SEE COMMENTS; Start 11/28/17 at 09:30 Insulin Aspart (NovoLOG SUPPLEMENTAL SCALE) 1 ACHS SLIDING SCALE SQ Last administered on 12/05/17at 23:00; Start 11/28/17 at 12:00 Insulin Detemir (Levemir Inj) 10 units HS SQ Last administered on 12/05/17at 22: 59; Start 12/04/17 at 21:00 Lactulose (Lactulose Liq) 15 ml DAILY PO Last administered on 11/20/17at 08:10; Start 11/20/17 at 09:00; Status Future Hold Loperamide HCl (Imodium) 2 mg Q6H PRN PO diarrhea Last administered on at 18:23; Start 11/25/17 at 14:00 Lorazepam (Ativan Inj) 2 mg Q15M PRN IV PUSH CIWA > 20; Start 11/06/17 at 16:15 Lorazepam (Ativan) 0.5 mg ONCE ONCE PO Last administered on 11/19/17at 11:10; Start 11/19/17 at 11:00; Stop 11/19/17 at 11:05; Status DC Magnesium Oxide (Mag-Ox) 800 mg TID PO Last administered on 11/24/17at 08:47; Start 11/19/17 at 13:00; Status Future Hold Magnesium Sulfate 2 gm/Sodium Chloride 100 ml @ 50 mls/hr UNSCH PRN IV For Magnesium 1.2 - 1.6 mg/dL; Start 11/06/17 at 17:45; Stop 11/07/17 at 13:00; Status DC Magnesium Sulfate 4 gm/Dextrose 100 ml @ 25 mls/hr ONCE IV Last administered on 11/06/17at 18:52; Start 11/06/17 at 17:00; Stop 11/06/17 at 20:59; Status DC Magnesium Sulfate 4 gm/Sodium Chloride 100 ml @ 50 mls/hr UNSCH PRN IV For Magnesium 0.9 - 1.1 mg/dL; Start 11/06/17 at 17:45; Stop 11/07/17 at 13:00; Status DC Magnesium Sulfate/ Dextrose 100 ml @ 100 mls/hr Q1H IV ; Start 12/06/17 at 10:00 ; Stop 12/06/17 at 11:59 Megestrol Acetate (Megace Liq) 400 mg DAILY PO Last administered on 12/06/17at 08 :50; Start 11/22/17 at 13:00 Melatonin (Melatonin) 5 mg HS PRN PO INSOMNIA Last administered on 12/04/17at 21: 54; Start 11/18/17 at 20:30 Methylprednisolone Sodium Succinate (SoluMEDROL INJ) 40 mg Q12HR IV PUSH Last administered on 11/30/17at 09:47; Start 11/27/17 at 21:00; Stop 11/30/17 at 11:08; Status DC Metoclopramide HCl (Reglan Inj) 10 mg ONCE ONCE IV PUSH Last administered on at 17:24; Start 11/06/17 at 14:45; Stop 11/06/17 at 14:50; Status DC Metoprolol Succinate (Toprol Xl) 25 mg DAILY PO Last administered on 11/17/17at 09:51; Start 11/07/17 at 09:00; Status Future Hold Miscellaneous (Pill Splitter) 1 ea UNSCH PRN OTHER SEE LABEL COMMENTS; Start at 14:00 Morphine Sulfate (Morphine Inj) 4 mg ONCE ONCE IV PUSH Last administered on 11/06/17at 17:25; Start 11/06/17 at 16:15; Stop 11/06/17 at 16:16; Status DC Multivitamins/ Minerals Therapeutic (Theragran M Tab) 1 tab DAILY PO Last administered on 11/11/17at 08:58; Start 11/07/17 at 09:00; Stop 11/12/17 at 08:59 ; Status DC Ondansetron HCl (Zofran Inj) 4 mg Q6H PRN IV PUSH NAUSEA OR VOMITING Last administered on 11/07/17at 07:53; Start 11/06/17 at 16:15 Oxycodone HCl (Roxicodone) 5 mg Q6H PRN PO PAIN SCALE 4 TO 10 Last administered on 12/06/17at 06:07; Start 11/07/17 at 17:00 Pantoprazole Sodium (Protonix) 40 mg BID PO Last administered on 12/06/17at 08:51 ; Start 11/16/17 at 21:00 Paroxetine HCl (Paxil) 40 mg DAILY PO Last administered on 12/06/17at 08:52; Start 11/07/17 at 09:00 Phytonadione (Mephyton Liq) 5 mg DAILY PO Last administered on 11/08/17at 09:00 ; Start 11/06/17 at 20:30; Stop 11/08/17 at 20:29; Status DC Potassium Chloride 30 meq/ Sodium Chloride 1,015 ml @ 100 mls/hr Q10H9M IV Last administered on 11/06/17at 19:37; Start 11/06/17 at 17:00; Stop 11/07/17 at 00: 28; Status DC Potassium Chloride/Sodium Chloride 1,000 ml @ 42 mls/hr [id number] IV Last administered on 11/22/17at 08:18; Start 11/09/17 at 16:45; Stop 11/22/17 at 12:06 ; Status DC Potassium Phosphate (K-Phos) 2,000 mg UNSCH PRN PO/TUBE SEE LABEL COMMENTS; Start 11/06/17 at 17:45; Stop 11/07/17 at 13:00; Status DC Potassium Phosphate 15 mmol/ Sodium Chloride 155 ml @ 38.75 mls/ hr ONCE ONCE IV Last administered on 11/13/17at 05:40; Start 11/13/17 at 04:00; Stop at 07:59; Status DC Potassium Phosphate 30 mmol/ Sodium Chloride 260 ml @ 43.333 mls/ hr ONCE ONCE IV Last administered on 11/09/17at 19:13; Start 11/09/17 at 18:00; Stop 05/19 at 23:59; Status DC Potassium Bicarb/ Potassium Chloride (K-Lyte Cl Eff) 50 meq ONCE ONCE PO Last administered on 11/18/17at 04:54; Start 11/18/17 at 04:45; Stop 11/18/17 at 04:46; Status DC Potassium Chloride (KCl) 20 meq Q12HR PO Last administered on 12/06/17at 08:51; Start 12/05/17 at 12:30 Potassium Phos/ Sodium Phos (K-Phos Neutral) 250 mg Q8HR PO Last administered on 11/25/17at 06:12; Start 11/11/17 at 09:00; Stop 11/25/17 at 09:53; Status DC Prednisone (Deltasone) 10 mg DAILY PO Last administered on 12/06/17at 08:51; Start 12/05/17 at 09:00 Rifaximin (Xifaxan) 550 mg BID PO Last administered on 12/06/17at 08:51; Start at 21:00 Sodium Chloride 250 ml @ 0 mls/hr BOLUS ONCE IV ; Start 11/12/17 at 14:45; Stop 11/12/17 at 14:46; Status DC Sodium Chloride (NS Flush) UNSCH PRN IV FLUSH SEE PROTOCOL; Start 11/08/17 at 12:00 Sodium Phosphate 15 mmol/Sodium Chloride 155 ml @ 38.75 mls/ hr ONCE ONCE IV Last administered on 11/10/17at 12:00; Start 11/10/17 at 10:45; Stop 11/10/17 at 14:44; Status DC Sodium Phosphate 30 mmol/Sodium Chloride 260 ml @ 43.333 mls/ hr ONCE ONCE IV Last administered on 11/12/17at 09:21; Start 11/12/17 at 06:45; Stop 11/12/17 at 12:44; Status DC Spironolactone (Aldactone) 100 mg BID@09,18 PO Last administered on 12/06/17at 08 :52; Start 11/25/17 at 18:00 Thiamine HCl (Vitamin B1) 100 mg DAILY PO Last administered on 12/06/17at 08:51; Start 11/07/17 at 09:00 Thiamine HCl 100 mg/Sodium Chloride 101 ml @ 101 mls/hr ONCE ONCE IV Last administered on 11/07/17at 01:13; Start 11/07/17 at 00:45; Stop 11/07/17 at 01:44; Status DC A/P Problem List: (1) Acute liver failure ICD Code: K72.00 - Acute and subacute hepatic failure without coma Status: Acute (2) Hyponatremia ICD Code: E87.1 - Hypo-osmolality and hyponatremia Status: Acute (3) Hypokalemia ICD Code: E87.6 - Hypokalemia Status: Acute (4) Chronic pancreatitis ICD Code: K86.1 - Other chronic pancreatitis Status: Acute (5) Alcohol abuse ICD Code: F10.10 - Alcohol abuse Status: Chronic (6) Hypomagnesemia ICD Code: E83.42 - Hypomagnesemia Status: Acute (7) Diabetes ICD Code: E11.9 - Type 2 diabetes mellitus without complications (8) Elevated LFTs ICD Code: R79.89 - Other specified abnormal findings of blood chemistry (9) Hyperammonemia ICD Code: E72.20 - Disorder of urea cycle metabolism, unspecified Assessment and Plan A/P diabetes mellitus resumed levemir Follow blood sugars Insulin sliding scale Acute liver failure Cirrhosis End-stage liver disease Related to alcohol abuse Continue to monitor LFTs Continue to monitor bilirubin Monitor ammonia level Aldactone to manage edema Hyponatremia Resolved Related to alcohol abuse Hypomagnesia replaced. Hypokalemia now potassium level on high side hold p.o. supplementation monitor Chronic pancreatitis Continue Creon Alcohol abuse history Patient recommended no longer to drink alcohol Diabetes mellitus type 2 Follow blood sugars Insulin sliding scale Diabetic diet Coagulopathy Improved leukocytosis due to steroids?-still elevated despite decreasing the steroids. blood cultures negative so far. consulted hematology. Diarrhea resolved. Failure to thrive Continue Megace DVT prophylaxis SCDs Discharge Planning possible discharge tomorrow if stable and cleared by hematology. Problem Qualifiers (1) Acute liver failure: Qualified Codes: K72.00 - Acute and subacute hepatic failure without coma (2) Chronic pancreatitis: Qualified Codes: K86.0 - Alcohol-induced chronic pancreatitis Amparo Castro MD Dec 06, 2017 09:45
[2017-12-06 09:57] LABS: % SATURATION IRON PROFILE 26.3 % (20-50); FERRITIN 255 NG/ML (26-388); FOLATE 10.1 NG/ML (3.1-17.5); TOTAL IRON BINDING CAPACITY 171 MCG/DL (250-450)
[2017-12-06] MEDS: MAGNESIUM SULFATE 1 GM PREMIX 100 ML IV SCH ×2 (10:44→11:40)
[2017-12-06 12:19] LABS: AUTOMATED NEUTROPHIL # 23.1 TH/MM3 (1.8-7.7); BASOPHIL # 0.1 TH/MM3 (0-0.2); BASOPHIL % 0.3 % (0.0-2.0); EOSINOPHIL # 0.3 TH/MM3 (0-0.4); EOSINOPHIL % 0.9 % (0.0-4.0); HEMATOCRIT 31.2 % (39.0-51.0); HEMOGLOBIN 10.4 GM/DL (13.0-17.0); LYMPH % 14.5 % (9.0-44.0); LYMPHOCYTE # 4.2 TH/MM3 (1.0-4.8); MEAN CELL VOLUME 95.3 FL (80.0-100.0); MEAN CORPUSCULAR HEMOGLOBIN 31.7 PG (27.0-34.0); MEAN CORPUSCULAR HGB CONC 33.3 % (32.0-36.0); MEAN PLATELET VOLUME 8.4 FL (7.0-11.0); MONO % 3.9 % (0.0-8.0); MONOCYTE # 1.1 TH/MM3 (0-0.9); NEUT % 80.4 % (16.0-70.0); PLATELET COUNT 498 TH/MM3 (150-450); RED BLOOD COUNT 3.27 MIL/MM3 (4.50-5.90); RED CELL DISTRIBUTION WIDTH 15.6 % (11.6-17.2); WHITE BLOOD COUNT 28.8 TH/MM3 (4.0-11.0)
[2017-12-06 13:20] LABS: WESTERGREN SEDIMENTATION RATE 39 mm/hr (0-15)
[2017-12-06 13:22] LABS: TARGET CELLS 2+ (NORMAL)
[2017-12-06 15:15] LABS: BICARBONATE 20.3 MEQ/L (21.0-32.0); CALCIUM 7.5 MG/DL (8.5-10.1); CREATININE 0.78 MG/DL (0.60-1.30); MAGNESIUM 1.8 MG/DL (1.5-2.5)
[2017-12-06] MEDS: MELATONIN 5 MG TAB PO PRN (21:04)
[2017-12-06] MEDS: INSULIN DETEMIR 100 UNITS/ML VIAL SQ SCH (21:06)
[2017-12-07 00:40] VITALS: BP 120/88; PULSE 69; RESP 20; TEMP 97.9; O2SAT 97
[2017-12-07 01:23] VITALS: PULSE 88
[2017-12-07] MEDS: LORazepam 1 MG TAB PO PRN ×2 (01:31→08:13)
[2017-12-07 04:00] VITALS: PULSE 88
[2017-12-07 05:00] VITALS: BP 120/70; PULSE 63; RESP 19; TEMP 97.3; O2SAT 96
[2017-12-07] MEDS: THIAMINE HCL 100 MG TAB PO SCH (08:05)
[2017-12-07 08:06] VITALS: BP 139/95; PULSE 87; RESP 20; TEMP 98.5; O2SAT 98
[2017-12-07] MEDS: CALCIUM CARBONATE 1.25 GM (CA 500 MG) TAB PO SCH (08:06)
[2017-12-07] MEDS: PARoxetine HCL 20 MG TAB PO SCH (08:06)
[2017-12-07] MEDS: PANTOPRAZOLE SOD 40 MG DELAYED RELEASE TAB PO SCH (08:06)
[2017-12-07] MEDS: MAGNESIUM OXIDE 400 MG TAB PO SCH (08:06)
[2017-12-07] MEDS: SPIRONOLACTONE 25 MG TAB PO SCH (08:06)
[2017-12-07] MEDS: MEGESTROL ACETATE SUSP 400 MG/10 ML CUP PO SCH (08:07)
[2017-12-07] MEDS: POTASSIUM CHLORIDE 20 MEQ CONTROLLED RELEASE TAB PO SCH (08:07)
[2017-12-07] MEDS: predniSONE 10 MG TAB PO SCH (08:07)
[2017-12-07] MEDS: RIFAXIMIN 550 MG TAB PO SCH (08:07)
[2017-12-07] MEDS: LIPASE/PROTEASE/AMYLASE (12,000/38,000/60,000) CAP PO SCH (08:07)
[2017-12-07] MEDS: SODIUM CHLORIDE 0.9% FLUSH 10 ML FLUSH IV FLUSH SCH ×2 (08:07)
[2017-12-07] MEDS: INSULIN ASPART SUPPLEMENTAL SCALE SQ SCH (09:19)
--- NOTE | 2017-12-07 10:05 | HHI.PR ---
Subjective Remarks in no acute distress. minimal abdominal pain. no fever. wants to go home. no new complaints. Objective Vitals Vital Signs Date Time Temp Pulse Resp B/P (MAP) Pulse Ox O2 Delivery O2 Flow Rate FiO2 12/07/17 08:06 98.5 87 20 139/95 (110) 98 12/07/17 05:00 97.3 63 19 120/70 (87) 96 12/07/17 04:00 88 12/07/17 01:23 88 12/07/17 00:40 97.9 69 20 120/88 (99) 97 12/06/17 21:00 98.0 58 19 105/60 (75) 98 12/06/17 20:00 91 12/06/17 16:56 98.2 76 20 124/67 (86) 98 12/06/17 12:07 98.0 80 20 130/89 (103) 97 12/06/17 11:48 83 I/O 12/06/17 12/06/17 12/06/17 12/07/17 12/07/17 12/07/17 07:00 15:00 23:00 07:00 15:00 23:00 Intake Total 300 ml 1120 ml 900 ml Output Total 0 ml 200 ml Balance 300 ml 1120 ml 700 ml Intake Oral 1120 ml 900 ml IV Total 300 ml Output Urine Total 0 ml 200 ml # Voids 3 # Bowel Movements 2 0 Result Diagram: 12/06/17 1140 12/06/17 1417 Imaging Last Impressions Upper Extremity Ultrasound 11/20/17 0000 Signed Impressions: CONCLUSION: 1. No evidence of DVT. Central Venous Line 11/08/17 0000 Signed Impressions: Service Date/Time: October 11:47 - CONCLUSION: Uncomplicated line placement as above. Merlin Monteiro MD Abdomen/Pelvis CT 11/06/17 1137 Signed Impressions: Service Date/Time: Monday, November 06, 2017 14:50 - CONCLUSION: 1. Findings of chronic pancreatitis with calcifications in the head and uncinate process, dilation of the pancreatic duct and marked atrophy of the mid body and tail. 2. Diffuse hepatic fatty infiltration. No focal mass lesions. 3. Findings of portal hypertension with a portosystemic shunt emanating from the origin of the portal vein and draining into the left renal vein. 4. Cholelithiasis Merlin Monteiro MD Objective Remarks GENERAL: in no apparent distress. CARDIOVASCULAR: Regular rate and regular rhythm without murmurs, gallops, or rubs. RESPIRATORY: Clear to auscultation. Breath sounds equal bilaterally. No wheezes , rales, or rhonchi. GASTROINTESTINAL: Abdomen soft, mild generalized tenderness, nondistended. Normal, active bowel sounds MUSCULOSKELETAL: Extremities without clubbing, cyanosis, or edema. NEURO: Alert & Oriented x4 to person, place, time, situation. Moves all ext x4 Procedures central line placement. Medications and IVs Inpatient Medications Amylase/Lipase/ Protease (Creon 12-38-60) 1 cap TID PO Last administered on 12/07at 08:07; Start 11/06/17 at 18:00 Calcium Carbonate (Oscal) 500 mg Q12HR PO Last administered on 12/07/17at 08:06; Start 11/15/17 at 21:00 Calcium Chloride 2 gm/Sodium Chloride 120 ml @ 120 mls/hr ONCE ONCE IV Last administered on 11/21/17at 21:19; Start 11/21/17 at 18:45; Stop 11/21/17 at 19:44 ; Status DC Calcium Gluconate 1 gm/Dextrose 110 ml @ 110 mls/hr ONCE ONCE IV Last administered on 11/16/17at 09:58; Start 11/16/17 at 10:00; Stop 11/16/17 at 10:59 ; Status DC Cholestyramine Resin (Questran 4 Gm Pkt) 4 gm Q8HR PO Last administered on 11/24at 13:18; Start 11/21/17 at 10:00; Status Future Hold Dextrose (D50w (Vial) Inj) 50 ml UNSCH PRN IV PUSH HYPOGLYCEMIA-SEE COMMENTS; Start 11/28/17 at 09:30 Flumazenil (Romazicon Inj) 0.2 mg Q1M PRN IV PUSH SEE LABEL COMMENTS; Start 11/06/17 at 16:15 Folic Acid (Folate) 1 mg DAILY PO Last administered on 11/11/17at 08:54; Start 11/07/17 at 09:00; Stop 11/12/17 at 08:59; Status DC Glucagon (Glucagon Inj) 1 mg UNSCH PRN OTHER HYPOGLYCEMIA-SEE COMMENTS; Start 11/28/17 at 09:30 Insulin Aspart (NovoLOG SUPPLEMENTAL SCALE) 1 ACHS SLIDING SCALE SQ Last administered on 12/07/17at 09:19; Start 11/28/17 at 12:00 Insulin Detemir (Levemir Inj) 10 units HS SQ Last administered on 12/06/17at 21: 06; Start 12/04/17 at 21:00 Lactulose (Lactulose Liq) 15 ml DAILY PO Last administered on 11/20/17at 08:10; Start 11/20/17 at 09:00; Status Future Hold Loperamide HCl (Imodium) 2 mg Q6H PRN PO diarrhea Last administered on at 18:23; Start 11/25/17 at 14:00 Lorazepam (Ativan Inj) 2 mg Q15M PRN IV PUSH CIWA > 20; Start 11/06/17 at 16:15 Lorazepam (Ativan) 0.5 mg ONCE ONCE PO Last administered on 11/19/17at 11:10; Start 11/19/17 at 11:00; Stop 11/19/17 at 11:05; Status DC Magnesium Oxide (Mag-Ox) 800 mg TID PO Last administered on 11/24/17at 08:47; Start 11/19/17 at 13:00; Status Future Hold Magnesium Sulfate 2 gm/Sodium Chloride 100 ml @ 50 mls/hr UNSCH PRN IV For Magnesium 1.2 - 1.6 mg/dL; Start 11/06/17 at 17:45; Stop 11/07/17 at 13:00; Status DC Magnesium Sulfate 4 gm/Dextrose 100 ml @ 25 mls/hr ONCE IV Last administered on 11/06/17at 18:52; Start 11/06/17 at 17:00; Stop 11/06/17 at 20:59; Status DC Magnesium Sulfate 4 gm/Sodium Chloride 100 ml @ 50 mls/hr UNSCH PRN IV For Magnesium 0.9 - 1.1 mg/dL; Start 11/06/17 at 17:45; Stop 11/07/17 at 13:00; Status DC Magnesium Sulfate/ Dextrose 100 ml @ 100 mls/hr Q1H IV Last administered on 12/06/17at 11:40; Start 12/06/17 at 10:00; Stop 12/06/17 at 11:59; Status DC Megestrol Acetate (Megace Liq) 400 mg DAILY PO Last administered on 12/07/17 08 :07; Start 11/22/17 at 13:00 Melatonin (Melatonin) 5 mg HS PRN PO INSOMNIA Last administered on 12/06/17 21: 04; Start 11/18/17 at 20:30 Methylprednisolone Sodium Succinate (SoluMEDROL INJ) 40 mg Q12HR IV PUSH Last administered on 11/30/17 09:47; Start 11/27/17 at 21:00; Stop 11/30/17 at 11:08; Status DC Metoclopramide HCl (Reglan Inj) 10 mg ONCE ONCE IV PUSH Last administered on 17:24; Start 11/06/17 at 14:45; Stop 11/06/17 at 14:50; Status DC Metoprolol Succinate (Toprol Xl) 25 mg DAILY PO Last administered on 11/17/17 09:51; Start 11/07/17 at 09:00; Status Future Hold Miscellaneous (Pill Splitter) 1 ea UNSCH PRN OTHER SEE LABEL COMMENTS; Start at 14:00 Morphine Sulfate (Morphine Inj) 4 mg ONCE ONCE IV PUSH Last administered on 17:25; Start 11/06/17 at 16:15; Stop 11/06/17 at 16:16; Status DC Multivitamins/ Minerals Therapeutic (Theragran M Tab) 1 tab DAILY PO Last administered on 11/11/17 08:58; Start 11/07/17 at 09:00; Stop 11/12/17 at 08:59 ; Status DC Ondansetron HCl (Zofran Inj) 4 mg Q6H PRN IV PUSH NAUSEA OR VOMITING Last administered on 11/07/17at 07:53; Start 11/06/17 at 16:15 Oxycodone HCl (Roxicodone) 5 mg Q6H PRN PO PAIN SCALE 4 TO 10 Last administered on 12/07/17 09:28; Start 11/07/17 at 17:00 Pantoprazole Sodium (Protonix) 40 mg BID PO Last administered on 12/07/17 08:06 ; Start 11/16/17 at 21:00 Paroxetine HCl (Paxil) 40 mg DAILY PO Last administered on 12/07/17 08:06; Start 11/07/17 at 09:00 Phytonadione (Mephyton Liq) 5 mg DAILY PO Last administered on 11/08/17at 09:00 ; Start 11/06/17 at 20:30; Stop 11/08/17 at 20:29; Status DC Potassium Chloride 30 meq/ Sodium Chloride 1,015 ml @ 100 mls/hr Q10H9M IV Last administered on 11/06/17at 19:37; Start 11/06/17 at 17:00; Stop 11/07/17 at 00: 28; Status DC Potassium Chloride/Sodium Chloride 1,000 ml @ 42 mls/hr [id number] IV Last administered on 11/22/17at 08:18; Start 11/09/17 at 16:45; Stop 11/22/17 at 12:06 ; Status DC Potassium Phosphate (K-Phos) 2,000 mg UNSCH PRN PO/TUBE SEE LABEL COMMENTS; Start 11/06/17 at 17:45; Stop 11/07/17 at 13:00; Status DC Potassium Phosphate 15 mmol/ Sodium Chloride 155 ml @ 38.75 mls/ hr ONCE ONCE IV Last administered on 11/13/17at 05:40; Start 11/13/17 at 04:00; Stop at 07:59; Status DC Potassium Phosphate 30 mmol/ Sodium Chloride 260 ml @ 43.333 mls/ hr ONCE ONCE IV Last administered on 11/09/17at 19:13; Start 11/09/17 at 18:00; Stop 05/19 at 23:59; Status DC Potassium Bicarb/ Potassium Chloride (K-Lyte Cl Eff) 50 meq ONCE ONCE PO Last administered on 11/18/17at 04:54; Start 11/18/17 at 04:45; Stop 11/18/17 at 04:46; Status DC Potassium Chloride (KCl) 20 meq Q12HR PO Last administered on 12/07/17at 08:07; Start 12/05/17 at 12:30 Potassium Phos/ Sodium Phos (K-Phos Neutral) 250 mg Q8HR PO Last administered on 11/25/17at 06:12; Start 11/11/17 at 09:00; Stop 11/25/17 at 09:53; Status DC Prednisone (Deltasone) 10 mg DAILY PO Last administered on 12/07/17at 08:07; Start 12/05/17 at 09:00 Rifaximin (Xifaxan) 550 mg BID PO Last administered on 12/07/17at 08:07; Start at 21:00 Sodium Chloride 250 ml @ 0 mls/hr BOLUS ONCE IV ; Start 11/12/17 at 14:45; Stop 11/12/17 at 14:46; Status DC Sodium Chloride (NS Flush) UNSCH PRN IV FLUSH SEE PROTOCOL; Start 11/08/17 at 12:00 Sodium Phosphate 15 mmol/Sodium Chloride 155 ml @ 38.75 mls/ hr ONCE ONCE IV Last administered on 11/10/17at 12:00; Start 11/10/17 at 10:45; Stop 11/10/17 at 14:44; Status DC Sodium Phosphate 30 mmol/Sodium Chloride 260 ml @ 43.333 mls/ hr ONCE ONCE IV Last administered on 11/12/17at 09:21; Start 11/12/17 at 06:45; Stop 11/12/17 at 12:44; Status DC Spironolactone (Aldactone) 100 mg BID@09,18 PO Last administered on 12/07/17at 08 :06; Start 11/25/17 at 18:00 Thiamine HCl (Vitamin B1) 100 mg DAILY PO Last administered on 12/07/17at 08:05; Start 11/07/17 at 09:00 Thiamine HCl 100 mg/Sodium Chloride 101 ml @ 101 mls/hr ONCE ONCE IV Last administered on 11/07/17at 01:13; Start 11/07/17 at 00:45; Stop 11/07/17 at 01:44; Status DC A/P Problem List: (1) Acute liver failure ICD Code: K72.00 - Acute and subacute hepatic failure without coma Status: Acute (2) Hyponatremia ICD Code: E87.1 - Hypo-osmolality and hyponatremia Status: Acute (3) Hypokalemia ICD Code: E87.6 - Hypokalemia Status: Acute (4) Chronic pancreatitis ICD Code: K86.1 - Other chronic pancreatitis Status: Acute (5) Alcohol abuse ICD Code: F10.10 - Alcohol abuse Status: Chronic (6) Hypomagnesemia ICD Code: E83.42 - Hypomagnesemia Status: Acute (7) Diabetes ICD Code: E11.9 - Type 2 diabetes mellitus without complications (8) Elevated LFTs ICD Code: R79.89 - Other specified abnormal findings of blood chemistry (9) Hyperammonemia ICD Code: E72.20 - Disorder of urea cycle metabolism, unspecified Assessment and Plan A/P diabetes mellitus resumed levemir Insulin sliding scale Acute liver failure Cirrhosis End-stage liver disease Related to alcohol abuse Continue to monitor LFTs Continue to monitor bilirubin Monitor ammonia level Aldactone to manage edema continue prednisone and taper slowly. Hyponatremia Related to alcohol abuse Hypomagnesia replaced. Hypokalemia replaced. Chronic pancreatitis Continue Creon Alcohol abuse history Patient recommended no longer to drink alcohol Diabetes mellitus type 2 Follow blood sugars Insulin sliding scale Diabetic diet Coagulopathy Improved leukocytosis blood cultures negative so far. consulted hematology; d/w today; patient was cleared for discharge with outpatient follow-up. Diarrhea resolved. Failure to thrive Continue Megace DVT prophylaxis SCDs Discharge Planning dc home today. see med list. f/u; pcp, GI and Hematology. d/w the patient and . time spend 35 min. Problem Qualifiers (1) Acute liver failure: Qualified Codes: K72.00 - Acute and subacute hepatic failure without coma (2) Chronic pancreatitis: Qualified Codes: K86.0 - Alcohol-induced chronic pancreatitis Amparo Castro MD Dec 07, 2017 10:04
[2017-12-07] MEDS ORDERED: PRED5TAB PO ×3 (10:11→10:13)
[2017-12-07] MEDS ORDERED: Megestrol Liq PO (10:16)
== END 2017-12-07 11:09 | disposition home or self-care (01) | DRG 432 ==
LOC: NEPE 11:14 → NEDA 16:02 → NEDH 20:37 → HIMW 11-07 12:10 → N05A 11-14 18:36
PROVIDERS: ADMIT Internal Medicine; ATTEND Internal Medicine
PROC: 02HV33Z Insertion of Infusion Device into Superior Vena Cava, Percutaneous Approach (ICD-10-PCS; principal; 2017-11-08)
DX: K70.40 Alcoholic hepatic failure without coma (principal); E10.10 Type 1 diabetes mellitus with ketoacidosis without coma; K70.30 Alcoholic cirrhosis of liver without ascites; D68.4 Acquired coagulation factor deficiency; K76.6 Portal hypertension; E10.649 Type 1 diabetes mellitus with hypoglycemia without coma; I95.9 Hypotension, unspecified; E87.1 Hypo-osmolality and hyponatremia; F10.230 Alcohol dependence with withdrawal, uncomplicated; K86.0 Alcohol-induced chronic pancreatitis; E83.42 Hypomagnesemia; E83.39 Other disorders of phosphorus metabolism; E87.6 Hypokalemia; K80.20 Calculus of gallbladder without cholecystitis without obstruction; I49.3 Ventricular premature depolarization; E78.00 Pure hypercholesterolemia, unspecified; F17.210 Nicotine dependence, cigarettes, uncomplicated; F32.9 Major depressive disorder, single episode, unspecified; Z83.3 Family history of diabetes mellitus; Z91.14 Patient's other noncompliance with medication regimen; Z79.4 Long term (current) use of insulin; K70.10 Alcoholic hepatitis without ascites; D64.9 Anemia, unspecified; Z91.19 Patient's noncompliance with other medical treatment and regimen; I10 Essential (primary) hypertension; J45.909 Unspecified asthma, uncomplicated; K21.9 Gastro-esophageal reflux disease without esophagitis; R62.7 Adult failure to thrive; G89.29 Other chronic pain; T38.0X5A Adverse effect of glucocorticoids and synthetic analogues, initial encounter; D72.829 Elevated white blood cell count, unspecified
CPT/HCPCS: 36556; 36600; 74177; 76937; 77001; 80048; 80053; 80069; 80076; 80307; 81001; 82010; 82140; 82306; 82533; 82550; 82607; 82728; 82746; 82805; 82948; 83540; 83550; 83605; 83690; 83735; 83930; 83935; 84100; 84132; 84133; 84155; 84484; 85007; 85025; 85027; 85610; 85652; 85730; 86140; 87040; 87493; 87641; 93005; 93971; 96361; 96365; 96366; 96368; 96375; J0610; J1815; J2060; J2270; J2405; J2765; J2920; J3411; J3475; J3480; J7030; J7040; J7050; J7512; Q9967